=== PATIENT | female | born 1935 | race Caucasian/White ===

== ENCOUNTER 2017-03-02 21:33 | Emergency (ER) | payer OTHER ==
[2017-03-02 21:58] VITALS: BP 186/88; BMI 27.8
[2017-03-02] MEDS ORDERED: MORPHINE SULFATE INJ 4 MG IM ONE (22:00)
[2017-03-02] MEDS ORDERED: MORPHINE SULFATE INJ 4 MG ONE (22:01)
--- NOTE | 2017-03-02 22:01 | DR.GENAD ---
HPI - Complaint/Symptoms Chief Complaint:: PT FELL OUT OF BED AND H[facility] PT'S FAMILY REQUESTED PT COME TOO ED FOR EVALUATION PT STATES" I FELL TRYING TOO GET UP BY MYSELF AND FELL I WAS WEDGED INBETWEEN THE BATHROOM DOOR AND WALL. THE BACK OF MY HEAD AND NECK HURTS" - Source History Provided: Jail - Mode of Arrival Mode of Arrival: Stretcher - Timing Onset of Chief Complaint: 03/02/17 PMH - PMH Past Medical History: Yes Past Medical History: Anemia, Arthritis, CHF, Coronary Artery Disease, Diabetes , Dyslipidemia, GERD, Hypertension, Hypothyroidism, Kidney Stones Past Medical History Comment: [facility] Past Surgical History: Yes Surgical History: Appendectomy, Cholecystectomy, Hysterectomy, Ortho Surgery, Tonsillectomy - Family History History of Family Medical Conditions: Yes Family Medical History: [place], Coronary Artery Disease, Hypertension - Social History Alcohol Use: None Do you use any recreational Drugs:: No Lives With: Family Lives Where: Home - infectious screening In the last 2 months have you had wt loss of >10#?: NO Have you had fever, night sweats or hemotysis?: No Have you traveled outside the country in the last 6 months?: No Isolation: Standard ROS - Review of Systems Constitutional: No Symptoms Reported Eyes: No Symptoms Reported ENTM: No Symptoms Reported Respiratoy: No Symptoms Reported Cardiovascular: No Symptoms Reported Gastrointestinal/Abdominal: No Symptoms Reported Genitourinary: No Symptoms Reported Neurological: No Symptoms Reported Musculoskeletal: No Symptoms Reported Integumentary: No Symptoms Reported Hematologic/Lymphatic: No Symptoms Reported Endocrine: No Symptoms Reported Psychiatric: No Symptoms Reported All Other Systems: Reviewed and Negative PE - Vital Signs Vitals: Temperature 98.2 F Pulse Rate 76 Respiratory Rate 20 Blood Pressure [Right Arm] 181/83 Blood Pressure [Left Arm] 180/87 Blood Pressure 186/88 O2 Sat by Pulse Oximetry 99 - General Limitations: No Limitations General Appearance: Alert - Head Head Exam: Normal Inspection - Eyes Eye exam: Normal Appearance - ENT ENT Exam: Normal Exam External Ear Exam: Normal External Inspection TM/Canal Exam: Bilateral Normal Nose Exam: Normal Nose Exam Mouth Exam: Normal Inspection Throat Exam: Normal Inspection - Neck Neck Exam: Normal Inspection - Chest Chest Inspection: Normal Inspection - Respiratory Respiratory Exam: Normal Lung Sounds Bilat Respiratory Exam: Bilateral Clear to Auscultation - Cardiovascular Cardiovascular Exam: Regular Rate - Abdominal Exam Abdominal Exam: Normal Inspection Abdominal Tenderness: negative: RUQ, RLQ, LUQ, LLQ, Epigastrium, Suprapubic, Diffuse, Mild, Moderate, Severe, Other - Extremities Extremities Exam: Normal Inspection - Back Back Exam: Normal Inspection - Neurologic Neurological Exam: Alert, Oriented X3, CN II-XII Intact - Psychiatric Psychiatric Exam: Normal Affect - Skin Skin Exam: Warm, Dry Course - Treatment Treatment: Morphine 4mg IM ROR - XRAY XRAY Interpreted by: Radiologist (CT Brain: Bilateral cortical atrophy, periventrical and subccortical white matter changes are present bilateral 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
--- NOTE | 2017-03-02 22:36 | CT ---
EXAM: CT BRAIN WITHOUT CONTRAST INDICATION: Fall, head trauma COMPARISION: No Priors TECHNIQUE: Routine axial CT of the brain was performed without intravenous contrast. FINDINGS: There is advanced bilateral cortical atrophy. Patchy areas of low-attenuation are identified in the periventricular white matter bilaterally. The ventricular system is not abnormally dilated. No intra or extra-axial mass or hemorrhage. The amaro-white junction is preserved. There is no evidence of story bacute ischemic change. The basilar cisterns are clear. The skull is intact. The paranasal sinuses and mastoid air cells are clear. IMPRESSION: There is bilateral cortical atrophy. 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 No acute abnormality identified. Reported By:
--- NOTE | 2017-03-02 22:38 | CT ---
EXAM: CT CERVICAL SPINE WITHOUT CONTRAST INDICATION: Fall, neck pain COMPARISION: No priors TECHNIQUE: Axial CT examination of the cervical spine was performed without intravenous contrast. Coronal and s agittal planes were reconstructed using the axial data. FINDINGS: Degenerative disc changes are seen most notably throughout the lower cervical levels. No acute fract ure or subluxation. The vertebral body heights are preserved and normally aligned. Hypertrophic dege nerative facet arthropathy noted throughout cervical spine. Central canal is patent. The surrounding soft tissues appear unremarkable. IMPRESSION: Degenerative disc and facet changes are present throughout the cervical spine. The degenerative disc changes are most significant in the lower cervical levels. Reported By:
== END 2017-03-02 23:19 | disposition home or self-care (01) ==
LOC: ER 21:50
DX: S00.93XA Contusion of unspecified part of head, initial encounter (principal); M19.90 Unspecified osteoarthritis, unspecified site; G31.9 Degenerative disease of nervous system, unspecified; W06.XXXA Fall from bed, initial encounter; Y92.129 Unspecified place in nursing home as the place of occurrence of the external cause
CPT/HCPCS: 70450; 72125; 96372; 99282; 99283; J2270

== ENCOUNTER 2017-06-15 22:44 | Observation (INO) | payer OTHER ==
[2017-06-15 22:51] VITALS: BMI 26.4
--- NOTE | 2017-06-16 00:04 | DR.GENAD ---
HPI - PCP Primary Care Physician: EDUAR - Complaint/Symptoms Chief Complaint:: PATIENT STATED SINCE SHE ATE SUPPER SHE HAS BEEN HAVING LEG SPASMS AND HIGH BLOOD PRESSURE AT HOME. - Nurses notes reviewed Nurses Notes Review: Yes - Source History Provided: Patient, Family Member - Mode of Arrival Mode of Arrival: Wheelchair - Timing Onset of Chief Complaint: 06/15/17 Came on: Suddenly - Duration Duration: Constant Duration: Hours - Severity Severity: Moderate PMH - PMH Past Medical History: Yes Past Medical History: Anemia, Arthritis, CHF, Coronary Artery Disease, Diabetes , Dyslipidemia, GERD, Hypertension, Hypothyroidism, Kidney Stones Past Surgical History: Yes Surgical History: Appendectomy, Cholecystectomy, Hysterectomy, Ortho Surgery, Tonsillectomy - Family History History of Family Medical Conditions: Yes Family Medical History: [place], Coronary Artery Disease, Hypertension - Social History Does patient currently use any type of tobacco product: No Have you used tobacco products in the last 12 months: No Type of Tobacco Use: None Does any household member use tobacco: No Alcohol Use: None Do you use any recreational Drugs:: No Lives With: Family Lives Where: Home - infectious screening In the last 2 months have you had wt loss of >10#?: NO Have you had fever, night sweats or hemotysis?: No Have you traveled outside the country in the last 6 months?: No Isolation: Standard ROS - Review of Systems Constitutional: Weakness, Fatigue. negative: Chills, Fever Eyes: negative: Eye Pain, Discharge ENTM: negative: Ear Pain, Nose Discharge, Nose Congestion, Throat Pain Respiratoy: negative: Productive Cough, Non-Productive Cough, Short of Breath, Wheezing, Hemoptysis Cardiovascular: Edema (TRACE). negative: Chest Pain Gastrointestinal/Abdominal: negative: Abdominal Pain, Diarrhea, Nausea, Vomiting Genitourinary: negative: Dysuria, Hematuria Neurological: Weakness. negative: Headache, Dizziness Musculoskeletal: Muscle Pain Integumentary: Change in Color Hematologic/Lymphatic: Easy Bleeding, Easy Bruising Endocrine: No Symptoms Reported All Other Systems: Reviewed and Negative PE - Vital Signs Vitals: Temperature 97.4 F Pulse Rate 75 Respiratory Rate 18 Blood Pressure [Right Arm] 140/73 Blood Pressure [Left Arm] 180/87 Blood Pressure 164/92 O2 Sat by Pulse Oximetry 95 - General Limitations: No Limitations General Appearance: Alert - Head Head Exam: Normal Inspection - Eyes Eye exam: Normal Appearance - ENT ENT Exam: Normal External Ear Exam External Ear Exam: Normal External Inspection TM/Canal Exam: Bilateral Normal Nose Exam: Normal Nose Exam Mouth Exam: Normal Inspection Throat Exam: Tonsillar Erythema - Neck Neck Exam: Trachea Midline - Chest Chest Inspection: Symmetric Chest Wall Rise - Respiratory Respiratory Exam: Normal Lung Sounds Bilat Respiratory Exam: Bilateral Clear to Auscultation - Cardiovascular Cardiovascular Exam: Regular Rate, Normal Rhythm, Normal Heart Sounds - Abdominal Exam Abdominal Exam: Normal Bowel Sounds, Soft. negative: Tenderness - Extremities Extremities Exam: Tenderness, Edema (TRACE) - Back Back Exam: Paraspinal Tenderness - Neurologic Neurological Exam: Alert, Oriented X3 - Psychiatric Psychiatric Exam: Anxious - Skin Skin Exam: Erythema MDM - Additional Information Additional Information Obtained From: Family - Differential Diagnosis Differential Diagnosis: LEG CRAMPS, RESTLESS LEG SYNDROM, DEHYDRATION, HYPOKALEMIA Course - Treatment Treatment: SEE ORDERS. PAIN MED AND IV FLUID IN ED. - Reevaluation 1st: Improved (PAIN DECREASING.) - Consultation Consultation Comments: DISCUSS PATIENT WITH DR. WITT. HE WILL ADMIT PATIENT. - Education/Counseling Education/Counseling: Patient, Family, Education Educated On: Treatment, Diagnosis ROR - Labs Reviewed Laboratory Results Reviewed?: Yes Result Diagrams: 06/16/17 00:15 06/16/17 00:15 Laboratory: WBC 9.4 X10^3/uL (3.6-10.0) 06/16/17 00:15 RBC 3.49 X10^6/uL (3.5-5.4) L 06/16/17 00:15 Hgb 10.7 g/dL (12.0-16.0) L 06/16/17 00:15 Hct 32.2 % (36.0-47.0) L 06/16/17 00:15 MCV 92.2 fL (80.0-100.0) 06/16/17 00:15 MCH 30.7 pg (27.0-34.0) 06/16/17 00:15 MCHC 33.2 g/dL (33.0-35.0) 06/16/17 00:15 RDW 14.0 % (11.6-16.5) 06/16/17 00:15 Plt Count 211 X10^3/uL (150.0-450.0) 06/16/17 00:15 MPV 8.5 fL (7.4-11.0) 06/16/17 00:15 Neut % 66.0 % (42.0-75.0) 06/16/17 00:15 Lymph % 22.9 % (21.0-51.0) 06/16/17 00:15 [place] % 9.0 % (0.0-13.0) 06/16/17 00:15 Eos % 1.2 % (0.9-2.9) 06/16/17 00:15 Baso % 0.9 % (0.2-1.0) 06/16/17 00:15 Neut # 6.2 x10^3/uL (2.2-4.8) H 06/16/17 00:15 Lymph # 2.2 X10^3/uL (1.3-2.9) 06/16/17 00:15 [place] # 0.8 x10^3/uL (0.3-0.8) 06/16/17 00:15 Eos # 0.1 x10^3/uL (0.0-0.2) 06/16/17 00:15 Baso # 0.1 X10^3/uL (0.0-0.1) 06/16/17 00:15 Absolute Nucleated RBC 0.1 /100WBC 06/16/17 00:15 Sodium 141 mmol/L (136-145) 06/16/17 00:15 Corrected Sodium TNP 06/16/17 00:15 Potassium 4.6 mmol/L (3.5-5.1) 06/16/17 00:15 Chloride 107 mmol/L (98-107) 06/16/17 00:15 Carbon Dioxide 25.4 mmol/L (21-32) 06/16/17 00:15 BUN 33 mg/dL (7-18) H 06/16/17 00:15 Creatinine 2.72 mg/dL (0.55-1.02) H 06/16/17 00:15 Est GFR (MDRD) Af Amer 21 (>60) L 06/16/17 00:15 Est GFR (MDRD) Non-Af 18 (>60) L 06/16/17 00:15 Glucose 95 mg/dL (65-99) 06/16/17 00:15 Calcium 8.0 mg/dL (8.5-10.1) L 06/16/17 00:15 Corrected Calcium TNP 06/16/17 00:15 Total Bilirubin 0.20 mg/dL (0.2-1.0) 06/16/17 00:15 AST 25 Units/L (15-37) 06/16/17 00:15 ALT 16 Units/L (12-78) 06/16/17 00:15 Alkaline Phosphatase 67 Units/L (46-116) 06/16/17 00:15 Total Protein 6.6 g/dL (6.4-8.2) 06/16/17 00:15 Albumin 3.4 g/dL (3.4-5.0) 06/16/17 00:15 Globulin 3.2 g/dL (2.5-4.5) 06/16/17 00:15 Albumin/Globulin Ratio 1.1 Ratio (1.1-2.1) 06/16/17 00:15 - XRAY XRAY Interpreted by: Radiologist - Diagnosis Discharge Problem: Dehydration, Restless leg syndrome, Muscle cramps - Discharge Plan Disposition: ADMITTED INPATIENT Condition: Stable - Follow ups/Referrals Follow ups/Referrals: Ramiro Witt [Primary Care Provider] - 3 days - Instructions
[2017-06-16 00:25] LABS: BASOPHILS # (AUTO) 0.1 X10^3/uL (0.0-0.1); BASOPHILS % (AUTO) 0.9 % (0.2-1.0); EOSINOPHILS # (AUTO) 0.1 x10^3/uL (0.0-0.2); EOSINOPHILS % (AUTO) 1.2 % (0.9-2.9); HEMATOCRIT 32.2 % (36.0-47.0); HEMOGLOBIN 10.7 g/dL (12.0-16.0); LYMPHOCYTES # (AUTO) 2.2 X10^3/uL (1.3-2.9); LYMPHOCYTES % (AUTO) 22.9 % (21.0-51.0); MEAN CORPUSCULAR HEMOGLOBIN 30.7 pg (27.0-34.0); MEAN CORPUSCULAR HGB CONC 33.2 g/dL (33.0-35.0); MEAN CORPUSCULAR VOLUME 92.2 fL (80.0-100.0); MEAN PLATELET VOLUME 8.5 fL (7.4-11.0); MONOCYTES # (AUTO) 0.8 x10^3/uL (0.3-0.8); NEUTROPHILS # (AUTO) 6.2 x10^3/uL (2.2-4.8); PLATELET COUNT 211 X10^3/uL (150.0-450.0); RED BLOOD COUNT 3.49 X10^6/uL (3.5-5.4); WHITE BLOOD COUNT 9.4 X10^3/uL (3.6-10.0)
[2017-06-16 00:40] LABS: ALANINE AMINOTRANSFERASE 16 Units/L (12-78); ALBUMIN 3.4 g/dL (3.4-5.0); ALKALINE PHOSPHATASE 67 Units/L (46-116); ASPARTATE AMINO TRANSFERASE 25 Units/L (15-37); BLOOD UREA NITROGEN 33 mg/dL (7-18); CARBON DIOXIDE 25.4 mmol/L (21-32); CHLORIDE 107 mmol/L (98-107); CREATININE 2.72 mg/dL (0.55-1.02); GLUCOSE 95 mg/dL (65-99); SODIUM 141 mmol/L (136-145); TOTAL PROTEIN 6.6 g/dL (6.4-8.2); eGFR BLACK RACES 21 (>60); eGFR NON BLACK RACES 18 (>60)
[2017-06-16] MEDS ORDERED: NS 1000 ML 1,000 ML ONE (01:52)
[2017-06-16] MEDS ORDERED: MORPHINE SULFATE INJ 4 MG IVP ONE (01:56)
[2017-06-16] MEDS ORDERED: ZOFRAN INJ 4 MG VIAL IVP ONE (01:56)
[2017-06-16] MEDS: NS 1000 ML 1,000 ML IV SCH ×4 (02:00→21:19)
[2017-06-16 02:04] LABS: BILIRUBIN,URINE NEGATIVE (NEGATIVE); BLOOD/HEMOGLOBIN,URINE NEGATIVE (NEGATIVE); GLUCOSE, URINE NEGATIVE (NEGATIVE); KETONES,URINE NEGATIVE (NEGATIVE); LEUKOCYTE ESTERASE ,URINE 1+ (NEGATIVE); NITRITES,URINE POSITIVE (NEGATIVE); PROTEIN,URINE NEGATIVE (NEGATIVE); UROBILINOGEN,URINE NORMAL (NORMAL)
[2017-06-16] MEDS ORDERED: MORPHINE SULFATE INJ 4 MG ONE (02:05)
[2017-06-16] MEDS ORDERED: ZOFRAN INJ 4 MG VIAL ONE (02:05)
[2017-06-16 02:24] LABS: COLOR,URINE YELLOW (YELLOW)
[2017-06-16 02:25] LABS: APPEARANCE,URINE SLIGHTLY HAZY (CLEAR); BACTERIA,URINE 1+ /HPF (NEGATIVE); RBC,URINE 0-3 /HPF (NEGATIVE); SQUAMOUS EPITHELIAL CELL,UR FEW /HPF (NEGATIVE)
[2017-06-16] MEDS: MORPHINE SULFATE INJ 2 MG IVP PRN (03:57)
[2017-06-16 05:56] LABS: BASOPHILS % (AUTO) 0.5 % (0.2-1.0); EOSINOPHILS # (AUTO) 0.1 x10^3/uL (0.0-0.2); EOSINOPHILS % (AUTO) 1.6 % (0.9-2.9); HEMATOCRIT 30.5 % (36.0-47.0); HEMOGLOBIN 10.3 g/dL (12.0-16.0); LYMPHOCYTES # (AUTO) 1.9 X10^3/uL (1.3-2.9); LYMPHOCYTES % (AUTO) 24.3 % (21.0-51.0); MEAN CORPUSCULAR HEMOGLOBIN 30.9 pg (27.0-34.0); MEAN CORPUSCULAR HGB CONC 33.6 g/dL (33.0-35.0); MEAN CORPUSCULAR VOLUME 91.8 fL (80.0-100.0); MEAN PLATELET VOLUME 8.7 fL (7.4-11.0); MONOCYTES # (AUTO) 0.6 x10^3/uL (0.3-0.8); MONOCYTES % (AUTO) 8.2 % (0.0-13.0); NEUTROPHILS # (AUTO) 5.1 x10^3/uL (2.2-4.8); NEUTROPHILS % (AUTO) 65.4 % (42.0-75.0); PLATELET COUNT 212 X10^3/uL (150.0-450.0); RED BLOOD COUNT 3.32 X10^6/uL (3.5-5.4); RED CELL DISTRIBUTION WIDTH 14.1 % (11.6-16.5); WHITE BLOOD COUNT 7.7 X10^3/uL (3.6-10.0)
[2017-06-16 05:58] LABS: ALANINE AMINOTRANSFERASE 20 Units/L (12-78); ALKALINE PHOSPHATASE 60 Units/L (46-116); ASPARTATE AMINO TRANSFERASE 28 Units/L (15-37); BLOOD UREA NITROGEN 31 mg/dL (7-18); CALCIUM 7.7 mg/dL (8.5-10.1); CHLORIDE 109 mmol/L (98-107); COR CA(FOR HYPOALB) 8.5 mg/dL (8.5-10.1); CREATININE 2.53 mg/dL (0.55-1.02); GLUCOSE 91 mg/dL (65-99); SODIUM 143 mmol/L (136-145); TOTAL PROTEIN 6.1 g/dL (6.4-8.2); eGFR BLACK RACES 23 (>60); eGFR NON BLACK RACES 19 (>60)
[2017-06-16] MEDS ORDERED: LASIX PO PRN (09:57)
[2017-06-16] MEDS ORDERED: PATIENT'S HOME MEDICATION (Ondansetron [Zofran Odt] 4 MG) PO PRN (09:57)
[2017-06-16] MEDS ORDERED: ROPINIROLE HCL 2 MG PO PRN (09:57)
[2017-06-16] MEDS ORDERED: REGLAN TAB 5 MG PO PRN (09:57)
[2017-06-16] MEDS ORDERED: APIXABAN 5 MG PO SCH (10:00)
[2017-06-16] MEDS ORDERED: AMIODARONE HCL PO SCH (10:00)
[2017-06-16] MEDS ORDERED: PATIENT'S HOME MEDICATION (Glimepiride [Glimepiride 2 Mg] 2 MG) PO SCH (10:00)
[2017-06-16] MEDS ORDERED: PATIENT'S HOME MEDICATION (Cholecalciferol (Vitamin D3) [Vitamin D3] 2,000 UNIT) PO SCH (10:00)
[2017-06-16] MEDS ORDERED: ZOFRAN TAB 4 MG PO PRN (10:11)
[2017-06-16] MEDS ORDERED: NORVASC TAB 2.5 MG ONE (11:11)
[2017-06-16] MEDS: TORADOL 15 MG VIAL IVP SCH ×2 (11:22→19:10)
[2017-06-16] MEDS: VITAMIN D3 PO SCH (11:23)
[2017-06-16] MEDS: MICRO K EXTEN CAP 10 MEQ PO SCH (11:23)
[2017-06-16] MEDS: COLACE CAP 100 MG PO SCH ×2 (11:23→21:19)
[2017-06-16] MEDS: ZESTRIL TAB 10 MG PO SCH (11:24)
[2017-06-16] MEDS: SYNTHROID 100 mcg TAB PO SCH (11:24)
[2017-06-16] MEDS: SINEMET (PLAIN) 25/250 MG PO SCH ×3 (11:24→21:19)
[2017-06-16] MEDS: ZANAFLEX PO SCH ×2 (11:24→19:10)
[2017-06-16] MEDS: PEPCID TAB 20 MG PO SCH ×2 (11:24→21:19)
[2017-06-16] MEDS: PROTONIX TAB 40 MG PO SCH (11:24)
[2017-06-16] MEDS: NORVASC TAB 2.5 MG PO SCH (11:25)
--- NOTE | 2017-06-16 13:55 | DR.H&P ---
H&P - History & Physical for Day of: H&P Date: 06/16/17 - Chief Complaint Chief Complaint: DEHYDRATION, MUSCLE CRAMPS, RESTLESS LEGS - Allergies Allergies/Adverse Reactions: Allergies Allergy/AdvReac Type Severity Reaction Status Date / Time ADHESIVE TAPE Allergy Uncoded 06/15/17 22:44 - History of Present Illness History of Present Illness: IS A 81 YEAR OLD PATIENT OF OURS WHO PRESENTED TO THE ER WITH COMPLAINTS OF SEVERE LEG CRAMPS AND INCREASED BLOOD PRESSURE AT HOME. PATIENT REPORTED INCREASED ACTIVITY AT HOME TODAY AND STATED THAT HER LEGS BEGAN CRAMPING. SHE BELIEVES THAT THE PAIN IS WHAT IS MAKING HER BLOOD PRESSURE INCREASE. PATIENT REPORTED TAKING A NORCO AND NEURONTIN, BUT DENIED RELIEF OF PAIN. ON ARRIVAL TO ER, VITALS WERE 97.4-75-18-95%-164/92. CBC WNL EXCEPT RBC 3.49, HGB 10.7, HCT 32.2. CMP WNL EXCEPT BUN 32, CREATININE 2.72, GFR 18, CALCIUM 8.0. URINALYSIS REPORTED WBC 5-10, BACTERIA 1+, LEUKOCYTES 1+, NITRATES POSITIVE. SHE RECEIVED MORPINE 4MG IVP AND ZOFRAN 4MG IVP IN ER. SHE CONTINUED TO REPORT PAIN. WE ADMITTED HER FOR FURTHER TREATMENT AND EVALUATION. WE STARTED HER ON NS @100ML/HR, MORPHINE 1-2MG IV Q4H PRN PAIN, ROCEPHIN 1GM IV DAILY, AND OTBS ACHS. WE WILL REVIEW HOME MEDICATIONS, RECHECK LABS, AND FOLLOW UP WITH PATIENT IN AM. - Past Medical History Past Medical History: Anemia, Arthritis, CHF, Coronary Artery Disease, Diabetes , Dyslipidemia, GERD, Hypertension, Hypothyroidism, Kidney Stones Additional Medical History: Vision Deficit, Parkinson's Disease, Atrial Fibrillation, Bronchitis, Pneumonia, Constipation, Diarrhea, Colon Cancer, Breast Cancer, Urinary Tract Infections, Muscle Weakness, Back Pain, Neuropathy , Previous Blood Transfusion - Past Surgical History Surgical History: Abdominal Surgery, Hysterectomy, Other Additional Surgical History: Pacemaker, Two Colon Resection's for Colon Cancer, Left Partial Mastectomy for Breast Cancer, Right Chest Wall Port a cath, Left PAU - Family History Family Medical History: Hypertension - Social History Does patient currently use any type of tobacco product: No Have you used tobacco products in the last 12 months: No Type of Tobacco Use: None Does any household member use tobacco: No Alcohol Use: None Drug Use: None - Medications Home Medications: Amlodipine Besylate [Norvasc] 5 mg PO DAILY 06/16/17 [History Confirmed 06/16/17 ] Apixaban [Eliquis] 5 mg PO BID 06/16/17 [History Confirmed 06/16/17] Cholecalciferol (Vitamin D3) [Vitamin D3] 2,000 unit PO DAILY 06/16/17 [History Confirmed 06/16/17] Gabapentin 100 mg PO HS 06/16/17 [History Confirmed 06/16/17] Glimepiride [Glimepiride 2 mg] 2 mg PO DAILY 06/16/17 [History Confirmed ] Lisinopril [Prinivil] 10 mg PO DAILY 06/16/17 [History Confirmed 06/16/17] Metoclopramide HCl 5 mg PO QID PRN 06/16/17 [History Confirmed 06/16/17] - Physical Exam Vital Signs: Temperature 98.3 F Pulse Rate [Right Brachial] 66 Respiratory Rate 20 Blood Pressure [Right Arm] 123/57 O2 Sat by Pulse Oximetry 96 - Assessment/Plan (1) Dehydration Status: Acute Plan: IV FLUIDS, CONTINUE TO MONITOR PATIENT AND LABS (2) Muscle cramps Status: Acute Plan: START MORPHINE 1-2 MG IV Q4H PRN PAIN, START TORADOL 15MG IV Q8H, START ZANAFLEX 4 PO Q8H, CONTINUE TO MONITORCONTINUE GABAPENTIN, CONTINUE REQUIP, CONTINUE TO MONITOR (3) Restless leg syndrome Status: Acute Plan: CONTINUE GABAPENTIN, CONTINUE REQUIP, CONTINUE TO MONITOR (4) UTI (urinary tract infection) Qualifiers: Urinary tract infection type: site unspecified Hematuria presence: without hematuria Indwelling urinary catheter type: I Encounter type: E Qualified Code(s): N39.0 - Urinary tract infection, site not specified Status: Acute Plan: START ROCEPHIN 1GM IV DAILY, CONTINUE TO MONITOR (5) Hypertension Qualifiers: Hypertension type: essential hypertension Qualified Code(s): I10 - Essential (primary) hypertension Status: Acute Plan: CONTINUE NORVASC, CONTINUE ZESTRIL, CONTINUE TO MONITOR (6) GERD (gastroesophageal reflux disease) Qualifiers: Esophagitis presence: esophagitis presence not specified Qualified Code(s) : K21.9 - Gastro-esophageal reflux disease without esophagitis Status: Chronic Plan: CONTINUE REGLAN, CONTINUE PEPCID, CONTINUE TO MONITOR (7) Hyperlipidemia Qualifiers: Hyperlipidemia type: mixed hyperlipidemia Qualified Code(s): E78.2 - Mixed hyperlipidemia Status: Chronic Plan: CONTINUE LIPITOR, CONTINUE TO MONITOR (8) Hypothyroid Qualifiers: Hypothyroidism type: acquired Qualified Code(s): E03.9 - Hypothyroidism, unspecified Status: Chronic Plan: CONTINUE SYNTHROID, CONTINUE TO MONITOR (9) Diabetes mellitus Qualifiers: Diabetes mellitus type: type 2 Diabetes mellitus complication status: without complication Diabetes mellitus complication detail: D Diabetic retinopathy severity: D Proliferative retinopathy type: P Diabetes mellitus macular edema: D Diabetes mellitus intermediate accountant insulin use: with correction use Laterality: L Chronic kidney disease stage: C Qualified Code(s): E11.9 - Type 2 diabetes mellitus without complications; Z79.4 - residential (current) use of insulin Status: Chronic Plan: CONTINUE AMARYL, CONTINUE TO MONITOR (10) Parkinson disease Status: Chronic Plan: CONTINUE SINEMET, CONTINUE TO MONITOR (11) Depression Qualifiers: Depression Type: major depressive disorder Major depression recurrence: recurrent Active/Remission status: currently active Major depression episode severity: moderate Psychotic features: P Trimester: T Qualified Code(s): F33.1 - Major depressive disorder, recurrent, moderate Status: Chronic Plan: CONTINUE CELEXA, CONTINUE TO MONITOR
--- NOTE | 2017-06-16 14:07 | DR.H&P ---
H&P - History & Physical for Day of: H&P Date: 06/16/17 - Allergies Allergies/Adverse Reactions: Allergies Allergy/AdvReac Type Severity Reaction Status Date / Time ADHESIVE TAPE Allergy Uncoded 06/15/17 22:44 - History of Present Illness History of Present Illness: IS A 81 YEAR OLD PATIENT OF OURS WHO PRESENTED TO THE ER WITH COMPLAINTS OF SEVERE LEG CRAMPS AND INCREASED BLOOD PRESSURE AT HOME. PATIENT REPORTED INCREASED ACTIVITY AT HOME TODAY AND STATED THAT HER LEGS BEGAN CRAMPING. SHE BELIEVES THAT THE PAIN IS WHAT IS MAKING HER BLOOD PRESSURE INCREASE. PATIENT REPORTED TAKING A NORCO AND NEURONTIN, BUT DENIED RELIEF OF PAIN. ON ARRIVAL TO ER, VITALS WERE 97.4-75-18-95%-164/92. CBC WNL EXCEPT RBC 3.49, HGB 10.7, HCT 32.2. CMP WNL EXCEPT BUN 32, CREATININE 2.72, GFR 18, CALCIUM 8.0. URINALYSIS REPORTED WBC 5-10, BACTERIA 1+, LEUKOCYTES 1+, NITRATES POSITIVE. SHE RECEIVED MORPINE 4MG IVP AND ZOFRAN 4MG IVP IN ER. SHE CONTINUED TO REPORT PAIN. WE ADMITTED HER FOR FURTHER TREATMENT AND EVALUATION. WE STARTED HER ON NS @100ML/HR, MORPHINE 1-2MG IV Q4H PRN PAIN, ROCEPHIN 1GM IV DAILY, AND OTBS ACHS. WE WILL REVIEW HOME MEDICATIONS, RECHECK LABS, AND FOLLOW UP WITH PATIENT IN AM. - Past Medical History Past Medical History: Anemia, Arthritis, CHF, Coronary Artery Disease, Diabetes , Dyslipidemia, GERD, Hypertension, Hypothyroidism, Kidney Stones Additional Medical History: Vision Deficit, Parkinson's Disease, Atrial Fibrillation, Bronchitis, Pneumonia, Constipation, Diarrhea, Colon Cancer, Breast Cancer, Urinary Tract Infections, Muscle Weakness, Back Pain, Neuropathy , Previous Blood Transfusion - Past Surgical History Surgical History: Abdominal Surgery, Hysterectomy, Other Additional Surgical History: Pacemaker, Two Colon Resection's for Colon Cancer, Left Partial Mastectomy for Breast Cancer, Right Chest Wall Port a cath, Left PAU - Family History Family Medical History: Hypertension - Social History Does patient currently use any type of tobacco product: No Have you used tobacco products in the last 12 months: No Type of Tobacco Use: None Does any household member use tobacco: No Alcohol Use: None Drug Use: None - Medications Home Medications: Amlodipine Besylate [Norvasc] 5 mg PO DAILY 06/16/17 [History Confirmed 06/16/17 ] Apixaban [Eliquis] 5 mg PO BID 06/16/17 [History Confirmed 06/16/17] Cholecalciferol (Vitamin D3) [Vitamin D3] 2,000 unit PO DAILY 06/16/17 [History Confirmed 06/16/17] Gabapentin 100 mg PO HS 06/16/17 [History Confirmed 06/16/17] Glimepiride [Glimepiride 2 mg] 2 mg PO DAILY 06/16/17 [History Confirmed ] Lisinopril [Prinivil] 10 mg PO DAILY 06/16/17 [History Confirmed 06/16/17] Metoclopramide HCl 5 mg PO QID PRN 06/16/17 [History Confirmed 06/16/17] - Review of Systems Constitutional: No Symptoms Reported. denies: See HPI, Fever, Chills, Sweats, Weakness, Malaise, Other Eyes: No Symptoms Reported. denies: See HPI, Pain, Vision Change, Conjunctivae Inflammation, Eyelid Inflammation, Redness, Other ENT: No Symptoms Reported. denies: See HPI, Ear Pain, Ear Discharge, Nose Pain , Nose Discharge, Nose Congestion, Mouth Pain, Mouth Swelling, Throat Pain, Throat Swelling, Other Respiratory: No Symptoms Reported. denies: See HPI, Cough, Dry, Shortness of Breath, Hemoptysis, SOB with Excertion, Pleuritic Pain, Sputum, Wheezing, Other Cardiovascular: No Symptoms Reported. denies: Chest Pain, See HPI, Palpitations , Orthopnea, Paroxysmal Noc. Dyspnea, Edema, Light Headedness, Other Gastrointestinal: No Symptoms Reported. denies: See HPI, Nausea, Vomiting, Abdominal Pain, Diarrhea, Constipation, Melena, Hematochezia, Other Genitourinary: No Symptoms Reported. denies: See HPI, Dysuria, Frequency, Incontinence, Hematuria, Retention, Other Musculoskeletal: See HPI, Leg Pain, Neck Pain. denies: No Symptoms Reported, Shoulder Pain, Arm Pain, Back Pain, Hand Pain, Foot Pain, Other Skin: No Symptoms Reported. denies: See HPI, Rash, Lesions, Jaundice, Bruising , Wound, Ecchymosis, Other Neurological: No Symptoms Reported. denies: See HPI, Weakness, Numbness, Incoordination, Change in Speech, Confusion, Seizures, Other - Physical Exam Vital Signs: Temperature 98.3 F Pulse Rate [Right Brachial] 66 Respiratory Rate 20 Blood Pressure [Right Arm] 123/57 O2 Sat by Pulse Oximetry 96 Oriented: Normal. negative: Time, Person, Place, Not Oriented, Unable to test, Other Eyes: Normal. negative: Blurred Vision, Diplopia, Discharge, Pain, Redness, Photophobia, Other Ear: Normal. negative: Right, Left, Swelling, Ecchymosis, Hemotypanum, Abrasion , Laceration Nose: Normal. negative: Injected, Discharge, Blood, Other Throat: Normal. negative: Tonsillar Hypertrophy, Red, Exudate, Dry, Other Respiratory: Clear Throughout. negative: Diminished Throughout, Rhonchi Throughout, Rales Throughout, Wheezes Throughout, RUL Clear, RML Clear, RLL Clear, ERNESTINE Clear, LML Clear, LLL Clear, RUL Diminished, RML Diminished, RLL Diminished, ERNESTINE Diminished, LML Diminished, LLL Diminished, RUL Absent, RML Absent, RLL Absent, ERNESTINE Absent, LML Absent, LLL Absent, RUL Rhonchi, RML Rhonchi , RLL Rhonchi, ERNESTINE Rhonchi, LML Rhonchi, LLL Rhonchi, RUL Insp. Wheeze, RML Insp. Wheeze, RLL Insp. Wheeze, ERNESTINE Insp.Wheeze, LML Insp.Wheeze, LLL Insp.Wheeze, RUL Exp. Wheeze, RML Exp. Wheeze, RLL Exp. Wheeze, ERNESTINE Exp. Wheeze , LML Exp. Wheeze, LLL Exp. Wheeze, RUL Rales, RML Rales, RLL Rales, ERNESTINE Rales, LML Rales, LLL Rales, RUL Rub, RML Rub, RLL Rub, ERNESTINE Rub, LML Rub, LLL Rub, RUL Squeak, RML Squeak, RLL Squeak, ERNESTINE Squeak, LML Squeak, LLL Squeak Cardiovascular: Normal. negative: Tachycardia, Bradycardia, Irregular, S3, S4, Systolic, Diastolic, Murmur, Edema, Other : Normal. negative: Dysuria, Hematuria, Frequency, Discharge, Testicular Pain , Bleeding, , Other Auscultation: Bowel Sounds: Normal. negative: Bruit, Absent, Increased, Decreased, High Pitched, Other Palpation: Normal. negative: Spleen Enlarged, Liver Enlarged, Mass Pulsatile, Other Tenderness: Normal. negative: Diffuse, RUQ, RLQ, LUQ, LLQ, Epigastric, Periumbilical, Suprapubic, Mild, Moderate, Severe, Rebound, Guarding, Rigidity, Other Skin: Red. negative: Normal, Decreased Turgur, Rash, Papular, Macular, Maculopapular, Vesicular, Pustular, Petechial, Tender, Hot, Diaphoresis, Wound, Bruising, Ecchymosis, Other Musculoskeletal: Right, Left, Leg, Tender Psychiatric: Normal. negative: Anxiety, Depression, Agitation, Other Mood Description: Calm. negative: Angry, Apathetic, Depressed, Fearful, Flat, Happy, Hostile, Sad, Suspicious, Withdrawn, Anxious, Appropriate, Labile Affect: Normal. negative: Angry, Anxious, Depressed, Flat, Hysterical, Quiet, Violent Speech Pattern: Clear. negative: Appropriate, Unclear, Inappropriate, Delayed, Slurred, Excessive, Aphasic, Artificially Ventilated - Assessment/Plan (1) Dehydration Status: Acute Plan: IV FLUIDS, CONTINUE TO MONITOR PATIENT AND LABS (2) Muscle cramps Status: Acute Plan: START MORPHINE 1-2 MG IV Q4H PRN PAIN, START TORADOL 15MG IV Q8H, START ZANAFLEX 4 PO Q8H, CONTINUE TO MONITORCONTINUE GABAPENTIN, CONTINUE REQUIP, CONTINUE TO MONITOR (3) Restless leg syndrome Status: Acute Plan: CONTINUE GABAPENTIN, CONTINUE REQUIP, CONTINUE TO MONITOR (4) UTI (urinary tract infection) Qualifiers: Urinary tract infection type: site unspecified Hematuria presence: without hematuria Indwelling urinary catheter type: I Encounter type: E Qualified Code(s): N39.0 - Urinary tract infection, site not specified Status: Acute Plan: START ROCEPHIN 1GM IV DAILY, CONTINUE TO MONITOR (5) Hypertension Qualifiers: Hypertension type: essential hypertension Qualified Code(s): I10 - Essential (primary) hypertension Status: Acute Plan: CONTINUE NORVASC, CONTINUE ZESTRIL, CONTINUE TO MONITOR (6) GERD (gastroesophageal reflux disease) Qualifiers: Esophagitis presence: esophagitis presence not specified Qualified Code(s) : K21.9 - Gastro-esophageal reflux disease without esophagitis Status: Chronic Plan: CONTINUE REGLAN, CONTINUE PEPCID, CONTINUE TO MONITOR (7) Hyperlipidemia Qualifiers: Hyperlipidemia type: mixed hyperlipidemia Qualified Code(s): E78.2 - Mixed hyperlipidemia Status: Chronic Plan: CONTINUE LIPITOR, CONTINUE TO MONITOR (8) Hypothyroid Qualifiers: Hypothyroidism type: acquired Qualified Code(s): E03.9 - Hypothyroidism, unspecified Status: Chronic Plan: CONTINUE SYNTHROID, CONTINUE TO MONITOR (9) Diabetes mellitus Qualifiers: Diabetes mellitus type: type 2 Diabetes mellitus complication status: without complication Diabetes mellitus complication detail: D Diabetic retinopathy severity: D Proliferative retinopathy type: P Diabetes mellitus macular edema: D Diabetes mellitus equipment operator intermodal yard insulin use: with equipment operator intermodal yard use Laterality: L Chronic kidney disease stage: C Qualified Code(s): E11.9 - Type 2 diabetes mellitus without complications; Z79.4 - intermediate accountant (current) use of insulin Status: Chronic Plan: CONTINUE AMARYL, CONTINUE TO MONITOR (10) Parkinson disease Status: Chronic Plan: CONTINUE SINEMET, CONTINUE TO MONITOR (11) Depression Qualifiers: Depression Type: major depressive disorder Major depression recurrence: recurrent Active/Remission status: currently active Major depression episode severity: moderate Psychotic features: P Trimester: T Qualified Code(s): F33.1 - Major depressive disorder, recurrent, moderate Status: Chronic Plan: CONTINUE CELEXA, CONTINUE TO MONITOR
[2017-06-16] MEDS: NORCO 7.5/325 MG TAB PO PRN (14:20)
[2017-06-16] MEDS ORDERED: NS 50 ML IV + SPIKE MINIBAG* 50 ML IV ONE (16:09)
[2017-06-16] MEDS ORDERED: ROCEPHIN VIAL 1 GM ONE (16:09)
[2017-06-16] MEDS: ROCEPHIN VIAL 1 GM 1 GM in NS 50 ML IV + SPIKE MINIBAG* 50 ML IV SCH (16:19)
[2017-06-16] MEDS: LIPITOR TAB 20 MG PO SCH (17:00)
[2017-06-16] MEDS ORDERED: ZANAFLEX ONE (19:08)
[2017-06-16] MEDS ORDERED: TORADOL 15 MG VIAL ONE (19:09)
[2017-06-16] MEDS ORDERED: DONEPEZIL HYDROCHLORIDE PO SCH (21:00)
[2017-06-16] MEDS: NEURONTIN CAP 100 MG PO SCH (21:17)
[2017-06-16] MEDS: CORDARONE TAB 200 MG PO SCH (21:18)
[2017-06-16] MEDS: ELIQUIS PO SCH (21:19)
[2017-06-16] MEDS: ARICEPT TAB 10 MG PO SCH (21:19)
[2017-06-16] MEDS: CELEXA PO SCH (21:19)
[2017-06-16] MEDS: REQUIP PO PRN (22:30)
[2017-06-17] MEDS: TORADOL 15 MG VIAL IVP SCH ×3 (04:36→17:00)
[2017-06-17] MEDS: NS 1000 ML 1,000 ML IV SCH ×4 (04:36→20:39)
[2017-06-17] MEDS: ZANAFLEX PO SCH ×3 (04:37→17:00)
[2017-06-17] MEDS: SINEMET (PLAIN) 25/250 MG PO SCH ×3 (05:03→22:14)
[2017-06-17] MEDS: AMARYL TAB 4 MG PO SCH (06:02)
[2017-06-17 06:12] LABS: BASOPHILS % (AUTO) 0.4 % (0.2-1.0); EOSINOPHILS # (AUTO) 0.1 x10^3/uL (0.0-0.2); EOSINOPHILS % (AUTO) 1.9 % (0.9-2.9); HEMATOCRIT 30.6 % (36.0-47.0); HEMOGLOBIN 10.1 g/dL (12.0-16.0); LYMPHOCYTES # (AUTO) 1.4 X10^3/uL (1.3-2.9); LYMPHOCYTES % (AUTO) 21.5 % (21.0-51.0); MEAN CORPUSCULAR HEMOGLOBIN 30.5 pg (27.0-34.0); MEAN CORPUSCULAR HGB CONC 33.1 g/dL (33.0-35.0); MEAN CORPUSCULAR VOLUME 92.3 fL (80.0-100.0); MEAN PLATELET VOLUME 9.4 fL (7.4-11.0); MONOCYTES # (AUTO) 0.5 x10^3/uL (0.3-0.8); MONOCYTES % (AUTO) 7.3 % (0.0-13.0); NEUTROPHILS # (AUTO) 4.3 x10^3/uL (2.2-4.8); NEUTROPHILS % (AUTO) 68.9 % (42.0-75.0); PLATELET COUNT 204 X10^3/uL (150.0-450.0); RED BLOOD COUNT 3.32 X10^6/uL (3.5-5.4); RED CELL DISTRIBUTION WIDTH 14.2 % (11.6-16.5); WHITE BLOOD COUNT 6.3 X10^3/uL (3.6-10.0)
[2017-06-17 06:40] LABS: ALBUMIN 2.8 g/dL (3.4-5.0); CALCIUM 7.7 mg/dL (8.5-10.1); CARBON DIOXIDE 25.1 mmol/L (21-32); COR CA(FOR HYPOALB) 8.7 mg/dL (8.5-10.1); CREATININE 1.75 mg/dL (0.55-1.02)
[2017-06-17] MEDS ORDERED: NORVASC TAB 2.5 MG ONE (08:28)
[2017-06-17] MEDS: COLACE CAP 100 MG PO SCH ×2 (08:36→20:40)
[2017-06-17] MEDS: NORVASC TAB 2.5 MG PO SCH (08:37)
[2017-06-17] MEDS: PROTONIX TAB 40 MG PO SCH (08:38)
[2017-06-17] MEDS: MICRO K EXTEN CAP 10 MEQ PO SCH (08:38)
[2017-06-17] MEDS: ZESTRIL TAB 10 MG PO SCH (08:38)
[2017-06-17] MEDS: ELIQUIS PO SCH ×2 (08:39→20:42)
[2017-06-17] MEDS: CORDARONE TAB 200 MG PO SCH ×2 (08:39→20:42)
[2017-06-17] MEDS: PEPCID TAB 20 MG PO SCH (08:40)
[2017-06-17] MEDS: ROCEPHIN VIAL 1 GM 1 GM in NS 50 ML IV + SPIKE MINIBAG* 50 ML IV SCH (08:40)
[2017-06-17] MEDS: SYNTHROID 100 mcg TAB PO SCH (08:40)
[2017-06-17] MEDS: VITAMIN D3 PO SCH (08:42)
--- NOTE | 2017-06-17 12:09 | PCM.PROG ---
Progress Note - Progress Note for Day of Date: 06/17/17 - Subjective Subjective: IS ALERT AND ORIENTED ON MORNING ROUNDS. SHE IS SITTING UP IN BED WITH AT BEDSIDE. SHE HAS NO COMPLAINTS AND REPORTS FEELING MUCH BETTER TODAY. SHE DENIES PAIN. VITALS THIS AM ARE 98.0-77-20-96%-142/65. CBC REPORTS WBC 6.3, RBC 3.32, HGB 10.1, HCT 30.6. CMP REPORTS SODIUM 141, POTASSIUM 4.9, BUN 24, CREATININE 1.75, GLUCOSE 122, CALCIM 7.7, AST 50, ALT 17 , ALKALINE PHOSPHATASE 70, TOTAL PROTEIN 6.0, ALBUMIN 2.8. WE WILL CONTINUE WITH CURRENT PLAN OF CARE AND FOLLOW UP WITH PATIENT IN AM WITH PLANS TO DISCHARGE HOME IF STABLE. - Past Medical Family Social History Past Med/Fam/Surg Hx: No changes since H&P Allergies: Allergies ADHESIVE TAPE Allergy (Uncoded 06/15/17 22:44) - Review of Systems ROS: No change since H&P - Vital Signs and I&O's Vital Signs: Temperature 99.1 F Pulse Rate [Right Brachial] 77 Respiratory Rate 22 Blood Pressure [Right Arm] 127/66 O2 Sat by Pulse Oximetry 95 Intake and Output: Intake & Output 06/15/17 06/16/17 06/17/17 06/18/17 11:59 11:59 11:59 11:59 Intake Total 1600 Balance 1600 - Physical Exam Oriented: Normal Eyes: Normal Ear: Normal Nose: Normal Throat: Normal Respiratory: Normal Cardiovascular: Normal Auscultation: Bowel Sounds: Normal Palpation: Normal Tenderness: Normal Skin: Normal Musculoskeletal: Normal Psychiatric: Normal Mood Description: Calm Affect: Normal Speech Pattern: Clear, Appropriate - Laboratory and Diagnostics Result Diagrams: 06/17/17 05:21 06/17/17 05:21 Labs: Laboratory WBC 6.3 X10^3/uL (3.6-10.0) 06/17/17 05:21 RBC 3.32 X10^6/uL (3.5-5.4) L 06/17/17 05:21 Hgb 10.1 g/dL (12.0-16.0) L 06/17/17 05:21 Hct 30.6 % (36.0-47.0) L 06/17/17 05:21 MCV 92.3 fL (80.0-100.0) 06/17/17 05:21 MCH 30.5 pg (27.0-34.0) 06/17/17 05:21 MCHC 33.1 g/dL (33.0-35.0) 06/17/17 05:21 RDW 14.2 % (11.6-16.5) 06/17/17 05:21 Plt Count 204 X10^3/uL (150.0-450.0) 06/17/17 05:21 MPV 9.4 fL (7.4-11.0) 06/17/17 05:21 Neut % 68.9 % (42.0-75.0) 06/17/17 05:21 Lymph % 21.5 % (21.0-51.0) 06/17/17 05:21 Bradley % 7.3 % (0.0-13.0) 06/17/17 05:21 Eos % 1.9 % (0.9-2.9) 06/17/17 05:21 Baso % 0.4 % (0.2-1.0) 06/17/17 05:21 Neut # 4.3 x10^3/uL (2.2-4.8) 06/17/17 05:21 Lymph # 1.4 X10^3/uL (1.3-2.9) 06/17/17 05:21 Bradley # 0.5 x10^3/uL (0.3-0.8) 06/17/17 05:21 Eos # 0.1 x10^3/uL (0.0-0.2) 06/17/17 05:21 Baso # 0.0 X10^3/uL (0.0-0.1) 06/17/17 05:21 Absolute Nucleated RBC 0.1 /100WBC 06/17/17 05:21 Sodium 141 mmol/L (136-145) 06/17/17 05:21 Corrected Sodium 142 mmol/L (136-145) 06/17/17 05:21 Potassium 4.9 mmol/L (3.5-5.1) 06/17/17 05:21 Chloride 109 mmol/L (98-107) H 06/17/17 05:21 Carbon Dioxide 25.1 mmol/L (21-32) 06/17/17 05:21 BUN 24 mg/dL (7-18) H 06/17/17 05:21 Creatinine 1.75 mg/dL (0.55-1.02) H 06/17/17 05:21 Est GFR (MDRD) Af Amer 36 (>60) L 06/17/17 05:21 Est GFR (MDRD) Non-Af 30 (>60) L 06/17/17 05:21 Glucose 122 mg/dL (65-99) H 06/17/17 05:21 Calcium 7.7 mg/dL (8.5-10.1) L 06/17/17 05:21 Corrected Calcium 8.7 mg/dL (8.5-10.1) 06/17/17 05:21 Total Bilirubin 0.30 mg/dL (0.2-1.0) 06/17/17 05:21 AST 50 Units/L (15-37) H 06/17/17 05:21 ALT 17 Units/L (12-78) 06/17/17 05:21 Alkaline Phosphatase 70 Units/L (46-116) 06/17/17 05:21 Total Protein 6.0 g/dL (6.4-8.2) L 06/17/17 05:21 Albumin 2.8 g/dL (3.4-5.0) L 06/17/17 05:21 Globulin 3.2 g/dL (2.5-4.5) 06/17/17 05:21 Albumin/Globulin Ratio 0.9 Ratio (1.1-2.1) L 06/17/17 05:21 Specimen Type Clean catch urine 06/16/17 01:42 Urine Color Yellow (YELLOW) 06/16/17 01:42 Urine Appearance Slightly hazy (CLEAR) 06/16/17 01:42 Urine pH 5.0 (5.0 - 8.0) 06/16/17 01:42 Ur Specific Frederic 1.020 (1.000-1.030) 06/16/17 01:42 Urine Protein Negative (NEGATIVE) 06/16/17 01:42 Urine Glucose (UA) Negative (NEGATIVE) 06/16/17 01:42 Urine Ketones Negative (NEGATIVE) 06/16/17 01:42 Urine Occult Blood Negative (NEGATIVE) 06/16/17 01:42 Urine Nitrite Positive (NEGATIVE) 06/16/17 01:42 Urine Bilirubin Negative (NEGATIVE) 06/16/17 01:42 Urine Urobilinogen Normal (NORMAL) 06/16/17 01:42 Ur Leukocyte Esterase 1+ (NEGATIVE) 06/16/17 01:42 Urine RBC 0-3 /HPF (NEGATIVE) 06/16/17 01:42 Urine WBC 5-10 /HPF (NEGATIVE) 06/16/17 01:42 Ur Squamous Epith Cells Few /HPF (NEGATIVE) 06/16/17 01:42 Urine Bacteria 1+ /HPF (NEGATIVE) 06/16/17 01:42 Ur Culture Indicated? Yes/culture set up 06/16/17 01:42 - Plan (1) Dehydration Status: Acute Plan: IV FLUIDS, CONTINUE TO MONITOR PATIENT AND LABS (2) Muscle cramps Status: Acute Plan: START MORPHINE 1-2 MG IV Q4H PRN PAIN, START TORADOL 15MG IV Q8H, START ZANAFLEX 4 PO Q8H,CONTINUE GABAPENTIN, CONTINUE REQUIP, CONTINUE TO MONITOR (3) Restless leg syndrome Status: Acute Plan: CONTINUE GABAPENTIN, CONTINUE REQUIP, CONTINUE TO MONITOR (4) UTI (urinary tract infection) Status: Acute Qualifiers: Urinary tract infection type: site unspecified Hematuria presence: without hematuria Indwelling urinary catheter type: I Encounter type: E Qualified Code(s): N39.0 - Urinary tract infection, site not specified Plan: START ROCEPHIN 1GM IV DAILY, CONTINUE TO MONITOR (5) Hypertension Status: Acute Qualifiers: Hypertension type: essential hypertension Qualified Code(s): I10 - Essential (primary) hypertension Plan: CONTINUE NORVASC, CONTINUE ZESTRIL, CONTINUE TO MONITOR (6) GERD (gastroesophageal reflux disease) Status: Chronic Qualifiers: Esophagitis presence: esophagitis presence not specified Qualified Code(s) : K21.9 - Gastro-esophageal reflux disease without esophagitis Plan: CONTINUE REGLAN, CONTINUE PEPCID, CONTINUE TO MONITOR (7) Hyperlipidemia Status: Chronic Qualifiers: Hyperlipidemia type: mixed hyperlipidemia Qualified Code(s): E78.2 - Mixed hyperlipidemia Plan: CONTINUE LIPITOR, CONTINUE TO MONITOR (8) Hypothyroid Status: Chronic Qualifiers: Hypothyroidism type: acquired Qualified Code(s): E03.9 - Hypothyroidism, unspecified Plan: CONTINUE SYNTHROID, CONTINUE TO MONITOR (9) Diabetes mellitus Status: Chronic Qualifiers: Diabetes mellitus type: type 2 Diabetes mellitus complication status: without complication Diabetes mellitus complication detail: D Diabetic retinopathy severity: D Proliferative retinopathy type: P Diabetes mellitus macular edema: D Diabetes mellitus optician apprentice dispensing insulin use: with fci use Laterality: L Chronic kidney disease stage: C Qualified Code(s): E11.9 - Type 2 diabetes mellitus without complications; Z79.4 - managing cognitive engineer (current) use of insulin Plan: CONTINUE AMARYL, CONTINUE TO MONITOR (10) Parkinson disease Status: Chronic Plan: CONTINUE SINEMET, CONTINUE TO MONITOR (11) Depression Status: Chronic Qualifiers: Depression Type: major depressive disorder Major depression recurrence: recurrent Active/Remission status: currently active Major depression episode severity: moderate Psychotic features: P Trimester: T Qualified Code(s): F33.1 - Major depressive disorder, recurrent, moderate Plan: CONTINUE CELEXA, CONTINUE TO MONITOR
[2017-06-17] MEDS: LIPITOR TAB 20 MG PO SCH (17:00)
[2017-06-17] MEDS: NORCO 7.5/325 MG TAB PO PRN ×2 (17:05→23:29)
[2017-06-17] MEDS ORDERED: SNACK - Diabetic Appropriate PO SCH (20:00)
[2017-06-17] MEDS: ARICEPT TAB 10 MG PO SCH (20:40)
[2017-06-17] MEDS: NEURONTIN CAP 100 MG PO SCH (20:40)
[2017-06-17] MEDS: CELEXA PO SCH (20:40)
[2017-06-17] MEDS: MORPHINE SULFATE INJ 2 MG IVP PRN (20:40)
[2017-06-17] MEDS: REQUIP PO PRN (20:40)
[2017-06-18] MEDS: ZANAFLEX PO SCH ×2 (01:43→12:35)
[2017-06-18] MEDS: TORADOL 15 MG VIAL IVP SCH (01:43)
[2017-06-18] MEDS: NS 1000 ML 1,000 ML IV SCH ×3 (02:03→14:42)
[2017-06-18] MEDS: SINEMET (PLAIN) 25/250 MG PO SCH ×2 (06:24→14:43)
[2017-06-18] MEDS: AMARYL TAB 4 MG PO SCH (06:25)
[2017-06-18 06:28] LABS: BASOPHILS % (AUTO) 0.5 % (0.2-1.0); EOSINOPHILS # (AUTO) 0.1 x10^3/uL (0.0-0.2); EOSINOPHILS % (AUTO) 1.9 % (0.9-2.9); HEMATOCRIT 28.2 % (36.0-47.0); HEMOGLOBIN 9.5 g/dL (12.0-16.0); LYMPHOCYTES # (AUTO) 1.6 X10^3/uL (1.3-2.9); LYMPHOCYTES % (AUTO) 25.2 % (21.0-51.0); MEAN CORPUSCULAR HEMOGLOBIN 30.7 pg (27.0-34.0); MEAN CORPUSCULAR HGB CONC 33.6 g/dL (33.0-35.0); MEAN CORPUSCULAR VOLUME 91.5 fL (80.0-100.0); MEAN PLATELET VOLUME 9.3 fL (7.4-11.0); MONOCYTES # (AUTO) 0.5 x10^3/uL (0.3-0.8); MONOCYTES % (AUTO) 7.8 % (0.0-13.0); NEUTROPHILS % (AUTO) 64.6 % (42.0-75.0); PLATELET COUNT 198 X10^3/uL (150.0-450.0); RED BLOOD COUNT 3.08 X10^6/uL (3.5-5.4); WHITE BLOOD COUNT 6.2 X10^3/uL (3.6-10.0)
[2017-06-18] MEDS: NORCO 7.5/325 MG TAB PO PRN (06:30)
[2017-06-18 06:42] LABS: ALBUMIN 2.6 g/dL (3.4-5.0); CALCIUM 7.5 mg/dL (8.5-10.1); CARBON DIOXIDE 26.9 mmol/L (21-32); COR CA(FOR HYPOALB) 8.6 mg/dL (8.5-10.1); CREATININE 1.4 mg/dL (0.55-1.02); TOTAL PROTEIN 5.6 g/dL (6.4-8.2)
[2017-06-18] MEDS ORDERED: FIORICET TAB PO PRN (08:24)
[2017-06-18] MEDS ORDERED: DEPO-Medrol 80 MG VIAL ONE (08:27)
[2017-06-18] MEDS ORDERED: KENALOG INJ 40 MG ONE (08:27)
[2017-06-18] MEDS ORDERED: MARCAINE 0.5% ONE (08:27)
[2017-06-18] MEDS ORDERED: NORVASC TAB 2.5 MG ONE (08:38)
[2017-06-18] MEDS: ELIQUIS PO SCH (09:43)
[2017-06-18] MEDS: PROTONIX TAB 40 MG PO SCH (09:44)
[2017-06-18] MEDS: NORVASC TAB 2.5 MG PO SCH (09:44)
[2017-06-18] MEDS: MICRO K EXTEN CAP 10 MEQ PO SCH (09:44)
[2017-06-18] MEDS: PEPCID TAB 20 MG PO SCH (09:44)
[2017-06-18] MEDS: ZESTRIL TAB 10 MG PO SCH (09:45)
[2017-06-18] MEDS: VITAMIN D3 PO SCH (09:45)
[2017-06-18] MEDS: SYNTHROID 100 mcg TAB PO SCH (09:45)
[2017-06-18] MEDS: COLACE CAP 100 MG PO SCH (09:46)
[2017-06-18] MEDS: ROCEPHIN VIAL 1 GM 1 GM in NS 50 ML IV + SPIKE MINIBAG* 50 ML IV SCH (09:48)
[2017-06-18] MEDS: CORDARONE TAB 200 MG PO SCH (09:48)
[2017-06-18 14:50] VITALS: BP 165/81
== END 2017-06-18 13:50 | disposition home health service (06) ==
LOC: ER 22:57 → OBS 06-16 01:58 → MED/SURG 06-17 15:00
PROVIDERS: ADMIT Internal Medicine; ATTEND Internal Medicine
DX: E86.0 Dehydration (principal); R25.2 Cramp and spasm; G25.81 Restless legs syndrome; I10 Essential (primary) hypertension; E78.5 Hyperlipidemia, unspecified; E03.9 Hypothyroidism, unspecified; E11.8 Type 2 diabetes mellitus with unspecified complications; G20 Parkinson's disease; G44.209 Tension-type headache, unspecified, not intractable; N39.0 Urinary tract infection, site not specified; B96.20 Unspecified Escherichia coli [E. coli] as the cause of diseases classified elsewhere; K21.9 Gastro-esophageal reflux disease without esophagitis; M25.551 Pain in right hip; R11.0 Nausea
CPT/HCPCS: 36415; 80053; 81001; 85025; 87086; 87088; 87186; 94760; 96365; 96374; 96375; 99284; A4222; S0020; S0181; G0378; J0696; J1040; J2270; J2405; J3301

== ENCOUNTER 2017-06-30 18:16 | Observation (INO) | payer OTHER ==
[2017-06-30 19:34] LABS: BASOPHILS % (AUTO) 0.5 % (0.2-1.0); EOSINOPHILS # (AUTO) 0.1 x10^3/uL (0.0-0.2); EOSINOPHILS % (AUTO) 0.6 % (0.9-2.9); HEMATOCRIT 33.6 % (36.0-47.0); HEMOGLOBIN 11.1 g/dL (12.0-16.0); LYMPHOCYTES % (AUTO) 19.1 % (21.0-51.0); MEAN CORPUSCULAR HEMOGLOBIN 30.2 pg (27.0-34.0); MEAN CORPUSCULAR HGB CONC 33.1 g/dL (33.0-35.0); MEAN CORPUSCULAR VOLUME 91.2 fL (80.0-100.0); MEAN PLATELET VOLUME 8.2 fL (7.4-11.0); MONOCYTES # (AUTO) 0.9 x10^3/uL (0.3-0.8); MONOCYTES % (AUTO) 8.9 % (0.0-13.0); NEUTROPHILS # (AUTO) 7.3 x10^3/uL (2.2-4.8); NEUTROPHILS % (AUTO) 70.9 % (42.0-75.0); PLATELET COUNT 261 X10^3/uL (150.0-450.0); RED BLOOD COUNT 3.69 X10^6/uL (3.5-5.4); RED CELL DISTRIBUTION WIDTH 14.8 % (11.6-16.5); WHITE BLOOD COUNT 10.2 X10^3/uL (3.6-10.0)
[2017-06-30 19:41] LABS: ALANINE AMINOTRANSFERASE 22 Units/L (12-78); ALBUMIN 3.6 g/dL (3.4-5.0); ALKALINE PHOSPHATASE 70 Units/L (46-116); ASPARTATE AMINO TRANSFERASE 28 Units/L (15-37); BLOOD UREA NITROGEN 26 mg/dL (7-18); CALCIUM 8.6 mg/dL (8.5-10.1); CARBON DIOXIDE 32.8 mmol/L (21-32); CHLORIDE 103 mmol/L (98-107); COR NA(FOR HYPERGLY) 140 mmol/L (136-145); CREATININE 2.04 mg/dL (0.55-1.02); GLUCOSE 115 mg/dL (65-99); SODIUM 140 mmol/L (136-145); TOTAL PROTEIN 7.2 g/dL (6.4-8.2); eGFR BLACK RACES 30 (>60); eGFR NON BLACK RACES 25 (>60)
[2017-06-30] MEDS ORDERED: MORPHINE SULFATE INJ 2 MG IVP ONE (19:47)
[2017-06-30] MEDS ORDERED: MORPHINE SULFATE INJ 2 MG ONE (19:48)
--- NOTE | 2017-06-30 20:08 | CT ---
CT maxillofacial without contrast Indication: Pain after fall Technique: Helical images through the face without contrast. Coronal and sagittal reformats provided. Findings: There is comminuted fractures of the nasal bones with extensive soft tissue swelling and ga s overlying the bridge of the nose. Orbital leslie appear intact. The mandible is intact. Temporomandi bular joints and upper cervical spine are intact with DJD noted. Vascular plaque seen. Visualized bra in parenchyma shows no hemorrhage with atrophy. The globes themselves appear normal. Conal fat is nor mal. Minimal opacification of the nasal passages from hemorrhage noted. The sinuses are relatively cl ear. Impression: 1. Severely comminuted nasal bone fracture with laceration and contusion. The bilateral nasal lines a re markedly displaced and comminuted. 2. No other facial bone fracture seen. Spine degenerative change and vascular plaque noted. Reported By:
--- NOTE | 2017-06-30 20:12 | RAD ---
HISTORY: Fall with hand pain Study: 4 views of the left hand. Comparison: None Findings: No acute fractures or dislocations. The carpal bones appear well aligned. The visualized portions of the distal radius and ulna are unremarkable. Severe distal joint space loss. No significant soft ti ssue abnormality. IMPRESSION: 1. No acute abnormalities of the left hand. 2. Severe osteoarthritis. Reported By:
--- NOTE | 2017-06-30 20:37 | DR.GENAD ---
HPI - PCP Primary Care Physician: jaqui - HPI Comment HPI Comment: Pt was packing her gear after fishing expedition, when she fell face first and hit her nose and cheeks on the tailgate and steel bumper. She c/ o headache, facial pain and neck pain. She denies LOC. The bridge of her nose has a laceration and the bleeding is controlled. - Complaint/Symptoms Chief Complaint Doctors Comments: Headache and facial pain after fall. Chief Complaint:: fell and hit face and head on bumper and tailgate of truck - Nurses notes reviewed Nurses Notes Review: Yes - Source History Provided: Patient, EMS - Mode of Arrival Mode of Arrival: Stretcher - Timing Onset of Chief Complaint: 06/30/17 Came on: Suddenly - Severity Severity: Moderate PMH - PMH Past Medical History: Yes Past Medical History: Anemia, Arthritis, CHF, Coronary Artery Disease, Diabetes , Dyslipidemia, GERD, Hypertension, Hypothyroidism, Kidney Stones Past Surgical History: Yes Surgical History: Abdominal Surgery, Hysterectomy, Other - Family History History of Family Medical Conditions: Yes Family Medical History: Hypertension - Social History Does patient currently use any type of tobacco product: No Have you used tobacco products in the last 12 months: No Type of Tobacco Use: None Does any household member use tobacco: No Alcohol Use: None Do you use any recreational Drugs:: No Lives With: Family Lives Where: Home - infectious screening In the last 2 months have you had wt loss of >10#?: NO Have you had fever, night sweats or hemotysis?: No Have you traveled outside the country in the last 6 months?: No Isolation: Standard ROS - Review of Systems Constitutional: No Symptoms Reported Eyes: No Symptoms Reported ENTM: See HPI, Nose Pain Respiratoy: No Symptoms Reported Cardiovascular: No Symptoms Reported Gastrointestinal/Abdominal: No Symptoms Reported Genitourinary: No Symptoms Reported Neurological: No Symptoms Reported Musculoskeletal: No Symptoms Reported Integumentary: No Symptoms Reported Hematologic/Lymphatic: No Symptoms Reported Endocrine: No Symptoms Reported Psychiatric: No Symptoms Reported All Other Systems: Reviewed and Negative PE - Vital Signs Vitals: Pulse Rate 64 Respiratory Rate 22 Blood Pressure [Right Arm] 160/76 Blood Pressure [Left Arm] 165/81 Blood Pressure 204/93 O2 Sat by Pulse Oximetry 93 - General Limitations: No Limitations General Appearance: Alert, In Distress - Head Head Exam: Other (forehead hematoma) - Eyes Eye exam: Normal Appearance - ENT ENT Exam: Other (2 cm laceration across the bridge of her nose. No foreign body is noted.) External Ear Exam: Normal External Inspection Nose Exam: Nasal Deviation, Septal Hematoma, Laceration Mouth Exam: Lip Swelling Throat Exam: Normal Inspection - Neck Neck Exam: Other (c collar in place) - Chest Chest Inspection: Normal Inspection, Symmetric Chest Wall Rise - Respiratory Respiratory Exam: Normal Lung Sounds Bilat Respiratory Exam: Bilateral Clear to Auscultation - Cardiovascular Cardiovascular Exam: Regular Rate, Normal Rhythm, Normal Heart Sounds - Abdominal Exam Abdominal Exam: Normal Inspection, Normal Bowel Sounds, Soft - Back Back Exam: Normal Inspection - Neurologic Neurological Exam: Alert, Oriented X3, CN II-XII Intact - Psychiatric Psychiatric Exam: Normal Affect, Normal Mood, Agitated - Skin Skin Exam: Warm, Dry, Intact, Normal Color MDM - Differential Diagnosis Differential Diagnosis: facial laceration, facial fracture , intracerebral hemorrhage. ROR - Labs Reviewed Laboratory Results Reviewed?: Yes Result Diagrams: 06/30/17 19:20 06/30/17 19:20 Laboratory: WBC 10.2 X10^3/uL (3.6-10.0) H 06/30/17 19:20 RBC 3.69 X10^6/uL (3.5-5.4) 06/30/17 19:20 Hgb 11.1 g/dL (12.0-16.0) L 06/30/17 19:20 Hct 33.6 % (36.0-47.0) L 06/30/17 19:20 MCV 91.2 fL (80.0-100.0) 06/30/17 19:20 MCH 30.2 pg (27.0-34.0) 06/30/17 19:20 MCHC 33.1 g/dL (33.0-35.0) 06/30/17 19:20 RDW 14.8 % (11.6-16.5) 06/30/17 19:20 Plt Count 261 X10^3/uL (150.0-450.0) 06/30/17 19:20 MPV 8.2 fL (7.4-11.0) 06/30/17 19:20 Neut % 70.9 % (42.0-75.0) 06/30/17 19:20 Lymph % 19.1 % (21.0-51.0) L 06/30/17 19:20 [place] % 8.9 % (0.0-13.0) 06/30/17 19:20 Eos % 0.6 % (0.9-2.9) L 06/30/17 19:20 Baso % 0.5 % (0.2-1.0) 06/30/17 19:20 Neut # 7.3 x10^3/uL (2.2-4.8) H 06/30/17 19:20 Lymph # 2.0 X10^3/uL (1.3-2.9) 06/30/17 19:20 [place] # 0.9 x10^3/uL (0.3-0.8) H 06/30/17 19:20 Eos # 0.1 x10^3/uL (0.0-0.2) 06/30/17 19:20 Baso # 0.0 X10^3/uL (0.0-0.1) 06/30/17 19:20 Absolute Nucleated RBC 0.0 /100WBC 06/30/17 19:20 INR Target Range - 06/30/17 19:20 INR 1.15 (0.8-1.3) 06/30/17 19:20 PTT 28.1 SECONDS (22.9-36.5) 06/30/17 19:20 PTT Comment - 06/30/17 19:20 Sodium 140 mmol/L (136-145) 06/30/17 19:20 Corrected Sodium 140 mmol/L (136-145) 06/30/17 19:20 Potassium 5.1 mmol/L (3.5-5.1) 06/30/17 19:20 Chloride 103 mmol/L (98-107) 06/30/17 19:20 Carbon Dioxide 32.8 mmol/L (21-32) H 06/30/17 19:20 BUN 26 mg/dL (7-18) H 06/30/17 19:20 Creatinine 2.04 mg/dL (0.55-1.02) H 06/30/17 19:20 Est GFR (MDRD) Af Amer 30 (>60) L 06/30/17 19:20 Est GFR (MDRD) Non-Af 25 (>60) L 06/30/17 19:20 Glucose 115 mg/dL (65-99) H 06/30/17 19:20 Calcium 8.6 mg/dL (8.5-10.1) 06/30/17 19:20 Corrected Calcium TNP 06/30/17 19:20 Total Bilirubin 0.30 mg/dL (0.2-1.0) 06/30/17 19:20 AST 28 Units/L (15-37) 06/30/17 19:20 ALT 22 Units/L (12-78) 06/30/17 19:20 Alkaline Phosphatase 70 Units/L (46-116) 06/30/17 19:20 Total Protein 7.2 g/dL (6.4-8.2) 06/30/17 19:20 Albumin 3.6 g/dL (3.4-5.0) 06/30/17 19:20 Globulin 3.6 g/dL (2.5-4.5) 06/30/17 19:20 Albumin/Globulin Ratio 1.0 Ratio (1.1-2.1) L 06/30/17 19:20 - Diagnosis Discharge Problem: Laceration of nose Qualifiers: Encounter type: initial encounter Qualified Code(s): S01.21XA - Laceration without foreign body of nose, initial encounter Fall Qualifiers: Encounter type: initial encounter Qualified Code(s): W19.XXXA - Unspecified fall, initial encounter Fracture, nasal bone, open Qualifiers: Encounter type: initial encounter Qualified Code(s): S02.2XXB - Fracture of nasal bones, initial encounter for open fracture - Discharge Plan Condition: Stable - Follow ups/Referrals Follow ups/Referrals: Ramiro Petit [Primary Care Provider] - 3 days - Instructions Instructions: Facial Laceration, Laceration Care, Adult, [id number] Additional Instructions: I spoke with Dr Zhou regarding this patient and he agrees to accept this patient for observation. I attempted to contact Dr. Chopra (oral maxillo- facial surgeon) but was not able to contact him this evening. office [phone].
--- NOTE | 2017-06-30 20:43 | CT ---
CT HEAD WITHOUT CONTRAST CLINICAL HISTORY: 81-year-old female status post fall with headache. COMPARISON: CT head March 02, 2017. TECHNIQUE: Multiple, non-contrasted axial CT images were obtained from the skull base to the cranial vertex. Coronal and sagittal reformats were performed. FINDINGS: There are no abnormal intra- or extra-axial fluid collections, midline shift, or mass effec t. Ascencio-white differentiation is normal. Partially empty sella. Global cortical involutional changes are present that are advanced for the patient's stated age. The ventricular system is enlarged but co mmensurate with the degree of sulcal prominence. Periventricular and supraventricular white matter hy podensity is present that is nonspecific in appearance, but most likely to represent microvascular is chemic changes. Senescent calcifications in the bilateral basal ganglia. Atherosclerotic vascular shanel cification is present within the carotid siphons and distal vertebral arteries. Significant combination of bilateral nasal bones, left much greater than right with hemorrhagic fluid in the anterior nasal passages and significant soft tissue contusion/hematoma about the bridge of th e nose and preseptal periorbital soft tissues along the inferior orbital rim bilaterally, right great er the left. Mild polypoid mucosal thickening of the maxillary sinuses and left sphenoid sinus with a small 4 mm o steoma in the left frontal ethmoid air cells. Mastoid air cells and tympanic cavities are clear. IMPRESSION: 1. Comminuted bilateral nasal bone fractures, left greater the right with associated hemorrhagic flui d in the anterior nasal passages and contusion/hematoma about the soft tissues of the face as describ ed. Recommend CT maxillofacial. 2. No definite evidence of an acute intracranial process. 3. Severe microvascular white matter ischemic changes, with associated volume loss. Reported By:
--- NOTE | 2017-06-30 20:54 | CT ---
HISTORY: Injury, fall, neck pain Study: CT cervical spine without contrast Comparison: None Technique: Axial non contrast images with coronal and sagittal reformats. Dose reduction procedures w ere used with MA/kv adjusted for body size. Findings: The bones are osteopenic. The prevertebral soft tissues are normal. There is some straightening of th e normal cervical lordosis. The alignment is otherwise within normal limits. The vertebral bodies are of average height. Disc space narrowing is present C4-5, C5-6, C6-7. The pedicles, spinous processes , and posterior elements are intact. There is some spondylitic foraminal narrowing on the left at C3- 4, on the right at C 5 6 and bilaterally at C6-7. Diffuse bilateral facet degenerative joint disease is present. There is no definite evidence for fracture or dislocation. IMPRESSION: No definite evidence for fracture or dislocation Multilevel degenerative disc disease as described above. Multilevel spondylitic foraminal narrowing at the levels noted above. Diffuse bilateral facet degenerative joint disease Osteopenia Reported By:
[2017-06-30] MEDS ORDERED: DILAUDID INJ IM ONE ×2 (21:45→22:12)
[2017-06-30] MEDS ORDERED: DILAUDID INJ ONE ×2 (21:49→22:22)
[2017-06-30] MEDS ORDERED: HYDROGEN PEROXIDE 3% ONE (21:54)
[2017-06-30] MEDS ORDERED: ANCEF VIAL 1 GM 2 GM in NS 100 ML IV 100 ML IV STA (22:22)
[2017-06-30] MEDS ORDERED: NS 1000 ML 1,000 ML IV SCH (23:00)
[2017-06-30] MEDS ORDERED: ANCEF VIAL 1 GM ONE (23:51)
[2017-06-30] MEDS ORDERED: NS 50 ML IV 50 ML IV ONE (23:51)
[2017-07-01 01:37] VITALS: BMI 27.4
[2017-07-01] MEDS ORDERED: ZOFRAN INJ 4 MG VIAL IVP PRN (01:38)
[2017-07-01] MEDS: MORPHINE SULFATE INJ 2 MG IVP PRN ×4 (01:51→10:48)
[2017-07-01 05:54] LABS: BASOPHILS # (AUTO) 0.1 X10^3/uL (0.0-0.1); BASOPHILS % (AUTO) 0.4 % (0.2-1.0); HEMATOCRIT 30.2 % (36.0-47.0); HEMOGLOBIN 10.1 g/dL (12.0-16.0); LYMPHOCYTES # (AUTO) 1.7 X10^3/uL (1.3-2.9); MEAN CORPUSCULAR HEMOGLOBIN 30.4 pg (27.0-34.0); MEAN CORPUSCULAR HGB CONC 33.3 g/dL (33.0-35.0); MEAN CORPUSCULAR VOLUME 91.2 fL (80.0-100.0); MEAN PLATELET VOLUME 8.8 fL (7.4-11.0); MONOCYTES # (AUTO) 0.9 x10^3/uL (0.3-0.8); MONOCYTES % (AUTO) 6.8 % (0.0-13.0); NEUTROPHILS # (AUTO) 10.8 x10^3/uL (2.2-4.8); NEUTROPHILS % (AUTO) 79.8 % (42.0-75.0); PLATELET COUNT 237 X10^3/uL (150.0-450.0); RED BLOOD COUNT 3.31 X10^6/uL (3.5-5.4); RED CELL DISTRIBUTION WIDTH 14.7 % (11.6-16.5); WHITE BLOOD COUNT 13.5 X10^3/uL (3.6-10.0)
[2017-07-01 06:07] LABS: ALBUMIN 3.3 g/dL (3.4-5.0); CALCIUM 8.2 mg/dL (8.5-10.1); CARBON DIOXIDE 30.3 mmol/L (21-32); COR CA(FOR HYPOALB) 8.8 mg/dL (8.5-10.1); CREATININE 1.84 mg/dL (0.55-1.02); TOTAL PROTEIN 6.6 g/dL (6.4-8.2)
[2017-07-01] MEDS ORDERED: ZOSYN VIAL 2.25 GM 2.25 GM in NS 100 ML IV + SPIKE MINIBAG* 100 ML IV SCH (08:00)
--- NOTE | 2017-07-01 08:12 | DR.CARTERS ---
Short Stay Summary - Admission Date Date of Admission: 06/30/17 - Discharge Date Discharge Date: 07/01/17 - Hospital Course Hospital Course: IS A 81 YEAR OLD PATIENT OF OURS WHO PRESENTED TO THE EMERGENCY ROOM WITH COMPLAINTS OF FACIAL PAIN, HEADACHE, AND NECK PAIN, AND A LACERATION TO THE BRIDGE OF HER NOSE FOLLOWING A FALL. PATIENT REPORTS THAT SHE WAS PACKING UP HER FISHING GEAR, WHEN SHE FELL FACE FIRST AND HIT HER NOSE AND CHEECKS ON THE TAILGATE OF THEIR TRUCK. LACERATION WAS NOTED TO BE 2CM ACROSS THE BRIDGE OF HER NOSE. BLEEDING TO LACERATION IS CONTROLLED AT THE TIME OF ARRIVAL. SHE ALSO REPORTED LEFT HAND PAIN. ON ARRIVAL TO ER, VITALS WERE 98.3-60-18-97%-193/ 83. CBC WNL EXCEPT WBC 10.2, HGB 11.1, HCT 33.6. CMP WNL EXCEPT POTASSIUM 5.1, BUN 26, CREATININE 2.04, GLUCOSE 115. FACIAL BONES CT REPORTED SEVERELY COMMINUTED NASAL BONE FRACTURE WITH LACERATION AND CONTUSION. THE BILATERAL NASAL LINES ARE MARKEDLY DISPLACED AND COMMINUTED. CERVICAL SPINE CT REPORTED MULTILEVEL DDD, MULTILEVEL SPONDYLITIC FORAMINAL NARROWING AT THE LEVELS NOTED ABOVE, DIFFUSE BILATERAL FACET DJD, OSTEOPENIA. BRAIN CT REPORTED SEVERE MICROVASCULAR WHITE MATTER ISCHEMIC CHANGES WITH ASSOCIATED VOLUME LOSS. LEFT HAND XRAY NEGATIVE. SHE WAS GIVEN MORPHINE 2MG IVP, DILAUDID 1MG IM X 2, AND ANCEF 2GM IV IN ER. ADMITTED PATIENT FOR FURTHER TREATMENT AND EVALUATION. SHE WAS STARTED ON NS @80 ML/HR, ZOFRAN 4MG IVP Q6H PRN, MORPHINE 2MG IVP Q4H PRN, ZOSYN 2.25GM IV Q8H. ON THE MORNING FOLLOWING ADMISSION, PATIENT WAS ALERT AND ORIENTED, LYING IN BED WITH FAMILY AT BEDSIDE. SHE CONTINUES WITH COMPLAINTS OF FACIAL PAIN. SHE IS NOTED WITH DRESSING TO NOSE AND OXYGEN MASK. VITALS THIS AM ARE 97.6-70-16-96 %-179/78. CBC WNL EXCEPT WBC 13.5, RBC 3.31, HGB 10.1, HCT 30.2. CMP WNL EXCEPT POTASSIUM 5.4, BUN 26, CREATININE 1.84, GLUCOSE 132, CALCIUM 8.2, TOTAL BILIRUBIN 0.10, AST 41, ALBUMIN 3.3. WE DISCUSSED WITH PATIENT AND FAMILY THE NEED FOR TRANSFER DUE TO CONSULT WITH SPECIALIST AND FOR CARDIAC CLEARANCE PRIOR TO ANY SURGERY THAT MAY BE NEEDED. PATIENT AND FAMILY ARE IN AGREEMENT WITH PLAN. WE SPOKE TO [facility] IN [place]. , HOSPITALIST WILL ACCEPT PATIENT AND CONSULT WITH SURGEONS AND HELP DESK ASSOCIATE AT THEIR FACILITY. PATIENT IS IN STABLE CONDITION AND WILL BE TRANSPORTED VIA EMS. - Discharge Medications Discharge Medications: Hpymkotxov-Qymr-[id number] [FIORICET 50/325/40 MG *] 1 - 2 tab PO QID PRN [History] Ondansetron [Zofran Odt] 8 mg PO BID 06/30/17 [History] - Discharge Plan Disposition: HOME, SELF-CARE Condition: Stable - Follow up/Referrals Follow up/Referrals: Ramiro Petit [Primary Care Provider] - 3 days - Instructions Instructions: Facial Laceration, Laceration Care, Adult, [id number] Additional Instructions: I spoke with Dr Zhou regarding this patient and he agrees to accept this patient for observation. I attempted to contact Dr. Chopra (oral maxillo- facial surgeon) but was not able to contact him this evening. office [phone].
[2017-07-01 08:42] VITALS: BP 178/79
== END 2017-07-01 11:00 | disposition short-term general hospital (02) ==
LOC: ER 18:29 → MED/SURG 22:11
PROVIDERS: ADMIT Internal Medicine; ATTEND Internal Medicine
DX: S02.2XXB Fracture of nasal bones, initial encounter for open fracture (principal); S01.21XA Laceration without foreign body of nose, initial encounter; W18.09XA Striking against other object with subsequent fall, initial encounter; R51 Headache; M54.2 Cervicalgia; I25.10 Atherosclerotic heart disease of native coronary artery without angina pectoris; E78.2 Mixed hyperlipidemia; K21.9 Gastro-esophageal reflux disease without esophagitis; I10 Essential (primary) hypertension; E03.8 Other specified hypothyroidism; Y92.89 Other specified places as the place of occurrence of the external cause; M79.642 Pain in left hand; M50.321 Other cervical disc degeneration at C4-C5 level; M50.322 Other cervical disc degeneration at C5-C6 level; R94.31 Abnormal electrocardiogram [ECG] [EKG]; M50.323 Other cervical disc degeneration at C6-C7 level
CPT/HCPCS: 36415; 70450; 70486; 72125; 73130; 80053; 85025; 85610; 85730; 93005; 94760; 96365; 96374; 96375; 99284; A4216; A4222; G0378; J0690; J2270; J2405; J2543

== ENCOUNTER → 2017-08-22 | Outpatient (CLI) | payer OTHER ==
--- NOTE | 2017-08-22 17:02 | CT ---
CT SINUSES CLINICAL HISTORY: 81-year-old female with history of Parkinson disease, prior stroke and multiple fal ls with nasal fractures. Patient with headache for 3 months. COMPARISON: None. TECHNIQUE: Multiple, noncontrast axial CT images of the paranasal sinuses were obtained and reformatt ed in the axial, sagittal, and coronal planes. The resulting images were processed with soft tissue and bone algorithm. FINDINGS: Limited intracranial evaluation demonstrates no acute abnormalities. Age advanced cortical volume loss is present, with commensurate sulcal and ventricular prominence. Intraconal vascular calc ifications lateral to the right optic nerve. The orbits and globes are otherwise within normal limits . The frontal sinuses and frontal recesses are clear. The anterior and posterior ethmoidal air cells ar e clear. 5 mm osteoma in the anterior left ethmoid air cells. Moderate mucosal thickening of the lef t sphenoid sinus with the dominant right sphenoid sinus. The intersinus septum to the left of midlin e. The sphenoid ostia and sphenoethmoidal recesses are clear. The mastoid air cells, mastoid antrum, and tympanic cavities are clear. Skull base foramina are normal in appearance. Scattered polypoid muc osal thickening of the maxillary sinuses. The maxillary ostia, infundibula, and middle meati are tanner nt. No fluid levels are identified. Nasal cavity is within normal limits. Nasopharynx is normal. Bila teral cyndee bullosa. Chronic nasal bone fractures. IMPRESSION: 1. Mucosal thickening within the maxillary and left sphenoid sinus as described, which can be seen wi th acute/chronic sinusitis. 2. Demonstrable patency of the frontal recesses, sphenoethmoidal recesses, and ostiomeatal units. 3. Chronic nasal bone fractures. Reported By:
== END ==
LOC: RAD 15:31
PROVIDERS: ATTEND Internal Medicine
DX: R51 Headache (principal); J01.81 Other acute recurrent sinusitis; S02.2XXA Fracture of nasal bones, initial encounter for closed fracture; X58.XXXA Exposure to other specified factors, initial encounter
CPT/HCPCS: 70486

== ENCOUNTER 2017-11-09 17:08 | Emergency (ER) | payer OTHER ==
[2017-11-09 17:17] VITALS: BMI 27.3
--- NOTE | 2017-11-09 17:31 | DR.GENAD ---
HPI - PCP Primary Care Physician: EDUAR ESCALANTE - HPI Comment HPI Comment: PATIENT TOOK HOME MED FOR HEADACHE WITHOUT RELIEF. HAVING DYSURIA AND URINARY FREQUENCY. FINISH MED FOR UTI ONE WEEK AGO. NO FEVER. PAIN LEFT FLANK. - Complaint/Symptoms Chief Complaint Doctors Comments: HEADACHE, PAINFULL URINATION. Chief Complaint:: PTS DAUGHTER STATES " DOCTOR EDUAR DX HER WITH A UTI AND SHE TOOK ALL OF THOSE AND NOW SHE IS HAVING SOME PAINFUL URINATION, ".. AND C/O OF A H/A..BR Self Treatment fo Chief Complaint: NORCO TIMES 2 .. AT 1300 - Nurses notes reviewed Nurses Notes Review: Yes - Source History Provided: Patient, Family Member - Mode of Arrival Mode of Arrival: Ambulatory - Timing Onset of Chief Complaint: 11/09/17 Came on: Suddenly - Duration Duration: Constant Duration: Hours - Severity Severity: Moderate PMH - PMH Past Medical History: Yes Past Medical History: Anemia, Arthritis, CHF, Coronary Artery Disease, Diabetes , Dyslipidemia, GERD, Hypertension, Hypothyroidism, Kidney Stones Past Surgical History: Yes Surgical History: Abdominal Surgery, Hysterectomy, Ortho Surgery - Family History History of Family Medical Conditions: Yes Family Medical History: Hypertension - Social History Does patient currently use any type of tobacco product: No Have you used tobacco products in the last 12 months: No Type of Tobacco Use: None Does any household member use tobacco: No Alcohol Use: None Do you use any recreational Drugs:: No Lives With: Family Lives Where: Home - infectious screening In the last 2 months have you had wt loss of >10#?: NO Have you had fever, night sweats or hemotysis?: No Have you traveled outside the country in the last 6 months?: No Isolation: Standard ROS - Review of Systems Constitutional: negative: Chills, Fever, Weakness, Fatigue Eyes: negative: Eye Pain, Discharge ENTM: negative: Ear Pain, Nose Discharge, Nose Congestion, Throat Pain Respiratoy: Short of Breath (ON EXACERTION.). negative: Productive Cough, Non- Productive Cough, Wheezing, Hemoptysis Cardiovascular: negative: Chest Pain Gastrointestinal/Abdominal: Abdominal Pain, Other (LT FLANK PAIN). negative: Diarrhea, Nausea, Vomiting Genitourinary: Dysuria, Frequency Neurological: Headache. negative: Weakness, Dizziness Musculoskeletal: No Symptoms Reported Hematologic/Lymphatic: No Symptoms Reported Endocrine: No Symptoms Reported All Other Systems: Reviewed and Negative PE - Vital Signs Vitals: Temperature 97.2 F Pulse Rate 61 Respiratory Rate 22 Blood Pressure [Left Calf] 178/79 Blood Pressure [Right Arm] 179/78 Blood Pressure [Left Arm] 155/77 Blood Pressure 188/89 O2 Sat by Pulse Oximetry 95 - General Limitations: No Limitations General Appearance: Alert - Head Head Exam: Normal Inspection - Eyes Eye exam: Normal Appearance - ENT ENT Exam: Normal External Ear Exam External Ear Exam: Normal External Inspection TM/Canal Exam: Bilateral Normal Nose Exam: Normal Nose Exam Mouth Exam: Normal Inspection - Neck Neck Exam: Trachea Midline - Chest Chest Inspection: Symmetric Chest Wall Rise - Respiratory Respiratory Exam: Normal Lung Sounds Bilat Respiratory Exam: Bilateral Clear to Auscultation - Cardiovascular Cardiovascular Exam: Regular Rate, Normal Rhythm, Normal Heart Sounds - Abdominal Exam Abdominal Exam: Normal Bowel Sounds, Soft. negative: Tenderness - Extremities Extremities Exam: Normal Inspection - Back Back Exam: (L) CVA Tenderness - Neurologic Neurological Exam: Alert, Oriented X3 - Psychiatric Psychiatric Exam: Normal Affect, Normal Mood - Skin Skin Exam: Normal Color [facility] - Additional Information Additional Information Obtained From: Family - Differential Diagnosis Differential Diagnosis: UTI, DYSURIA, NEUROGENIC BLADDER, PYELONEPHRITIS, KIDNEY STONE, ABD PAIN Course - Treatment Treatment: SEE ORDERS. - Education/Counseling Education/Counseling: Patient, Family, Education Educated On: Treatment, Diagnosis, Needs for Follow Up ROR - Labs Reviewed Laboratory Results Reviewed?: Yes Result Diagrams: 11/09/17 18:14 11/09/17 18:14 Laboratory: WBC 7.4 X10^3/uL (3.6-10.0) 11/09/17 18:14 RBC 3.64 X10^6/uL (3.5-5.4) 11/09/17 18:14 Hgb 9.3 g/dL (12.0-16.0) L 11/09/17 18:14 Hct 28.8 % (36.0-47.0) L 11/09/17 18:14 MCV 79.1 fL (80.0-100.0) L 18 18:14 MCH 25.5 pg (27.0-34.0) L 11/09/17 18:14 MCHC 32.2 g/dL (33.0-35.0) L 11/09/17 18:14 RDW 17.8 % (11.6-16.5) H 11/09/17 18:14 Plt Count 269 X10^3/uL (150.0-450.0) 11/09/17 18:14 Plt Count Comment Adequate (ADEQUATE) 11/09/17 18:14 MPV 8.0 fL (7.4-11.0) 11/09/17 18:14 Neut % 50.9 % (42.0-75.0) 11/09/17 18:14 Lymph % 38.3 % (21.0-51.0) 11/09/17 18:14 [place] % 8.7 % (0.0-13.0) 11/09/17 18:14 Eos % 1.5 % (0.9-2.9) 11/09/17 18:14 Baso % 0.6 % (0.2-1.0) 11/09/17 18:14 Neut # 3.7 x10^3/uL (2.2-4.8) 11/09/17 18:14 Lymph # 2.8 X10^3/uL (1.3-2.9) 11/09/17 18:14 [place] # 0.6 x10^3/uL (0.3-0.8) 11/09/17 18:14 Eos # 0.1 x10^3/uL (0.0-0.2) 11/09/17 18:14 Baso # 0.0 X10^3/uL (0.0-0.1) 11/09/17 18:14 Absolute Nucleated RBC 0.0 /100WBC 11/09/17 18:14 Plt Morphology Comment Normal (NORMAL) 11/09/17 18:14 RBC Morphology Abnormal (NORMAL) A 11/09/17 18:14 Hypochromasia Slight A 11/09/17 18:14 Anisocytosis 1+ A 11/09/17 18:14 Sodium 141 mmol/L (136-145) 11/09/17 18:14 Corrected Sodium TNP 11/09/17 18:14 Potassium 4.3 mmol/L (3.5-5.1) 11/09/17 18:14 Chloride 107 mmol/L (98-107) 11/09/17 18:14 Carbon Dioxide 28.1 mmol/L (21-32) 11/09/17 18:14 BUN 30 mg/dL (7-18) H 11/09/17 18:14 Creatinine 2.06 mg/dL (0.55-1.02) H 11/09/17 18:14 Est GFR (MDRD) Af Amer 30 (>60) L 11/09/17 18:14 Est GFR (MDRD) Non-Af 24 (>60) L 11/09/17 18:14 Glucose 99 mg/dL (65-99) 11/09/17 18:14 Calcium 8.8 mg/dL (8.5-10.1) 11/09/17 18:14 Corrected Calcium TNP 11/09/17 18:14 Total Bilirubin 0.30 mg/dL (0.2-1.0) 11/09/17 18:14 AST 16 Units/L (15-37) 11/09/17 18:14 ALT 10 Units/L (12-78) L 11/09/17 18:14 Alkaline Phosphatase 65 Units/L (46-116) 11/09/17 18:14 Total Protein 6.9 g/dL (6.4-8.2) 11/09/17 18:14 Albumin 3.5 g/dL (3.4-5.0) 11/09/17 18:14 Globulin 3.4 g/dL (2.5-4.5) 11/09/17 18:14 Albumin/Globulin Ratio 1.0 Ratio (1.1-2.1) L 11/09/17 18:14 Specimen Type Clean catch urine 11/09/17 17:45 Urine Color Yellow (YELLOW) 11/09/17 17:45 Urine Appearance Clear (CLEAR) 11/09/17 17:45 Urine pH 6.0 (5.0 - 8.0) 11/09/17 17:45 Ur Specific [place] 1.015 (1.000-1.030) 11/09/17 17:45 Urine Protein 1+ (NEGATIVE) 11/09/17 17:45 Urine Glucose (UA) Negative (NEGATIVE) 11/09/17 17:45 Urine Ketones Negative (NEGATIVE) 11/09/17 17:45 Urine Occult Blood Negative (NEGATIVE) 11/09/17 17:45 Urine Nitrite Negative (NEGATIVE) 11/09/17 17:45 Urine Bilirubin Negative (NEGATIVE) 11/09/17 17:45 Urine Urobilinogen Normal (NORMAL) 11/09/17 17:45 Ur Leukocyte Esterase 1+ (NEGATIVE) 11/09/17 17:45 Urine RBC Negative /HPF (NEGATIVE) 11/09/17 17:45 Urine WBC 1 - 3 /HPF (NEGATIVE) 11/09/17 17:45 Ur Squamous Epith Cells Rare /HPF (NEGATIVE) 11/09/17 17:45 Urine Bacteria Negative /HPF (NEGATIVE) 11/09/17 17:45 Ur Culture Indicated? No/not indicated 11/09/17 17:45 - XRAY XRAY Interpreted by: Radiologist XRAY Findings: REPORT DISCUSS WITH PATIENT AND HER FAMILY. - Diagnosis Discharge Problem: Dysuria, Left flank pain Abdominal pain Qualifiers: Abdominal location: left upper quadrant Qualified Code(s): R10.12 - Left upper quadrant pain - Discharge Plan Disposition: HOME, SELF-CARE Condition: Stable Prescriptions: Phenazopyridine HCl [Pyridium] 200 mg PO TID PRN #9 tablet PRN Reason: - Follow ups/Referrals Follow ups/Referrals: Ramiro Petit [Primary Care Provider] - 3 days - Instructions Instructions: Abdominal Pain, Adult, [id number], Dysuria, Back Pain, Adult, [id number] Additional Instructions: RETURN TO ED IF WORSE.
[2017-11-09 17:51] LABS: BILIRUBIN,URINE NEGATIVE (NEGATIVE); BLOOD/HEMOGLOBIN,URINE NEGATIVE (NEGATIVE); GLUCOSE, URINE NEGATIVE (NEGATIVE); KETONES,URINE NEGATIVE (NEGATIVE); LEUKOCYTE ESTERASE ,URINE 1+ (NEGATIVE); NITRITES,URINE NEGATIVE (NEGATIVE); PROTEIN,URINE 1+ (NEGATIVE); UROBILINOGEN,URINE NORMAL (NORMAL)
[2017-11-09 17:53] LABS: APPEARANCE,URINE CLEAR (CLEAR); COLOR,URINE YELLOW (YELLOW)
[2017-11-09 17:55] LABS: BACTERIA,URINE NEGATIVE /HPF (NEGATIVE); RBC,URINE NEGATIVE /HPF (NEGATIVE); SQUAMOUS EPITHELIAL CELL,UR RARE /HPF (NEGATIVE)
[2017-11-09] MEDS ORDERED: MORPHINE SULFATE INJ 4 MG IM ONE (17:56)
[2017-11-09] MEDS ORDERED: ZOFRAN INJ 4 MG VIAL IM ONE (17:56)
[2017-11-09] MEDS ORDERED: ZOFRAN INJ 4 MG VIAL ONE (18:07)
[2017-11-09] MEDS ORDERED: ZOFRAN INJ 4 MG VIAL IVP ONE (18:19)
[2017-11-09] MEDS ORDERED: MORPHINE SULFATE INJ 4 MG IVP ONE (18:19)
[2017-11-09 18:22] LABS: BASOPHILS % (AUTO) 0.6 % (0.2-1.0); EOSINOPHILS # (AUTO) 0.1 x10^3/uL (0.0-0.2); EOSINOPHILS % (AUTO) 1.5 % (0.9-2.9); HEMATOCRIT 28.8 % (36.0-47.0); HEMOGLOBIN 9.3 g/dL (12.0-16.0); LYMPHOCYTES # (AUTO) 2.8 X10^3/uL (1.3-2.9); LYMPHOCYTES % (AUTO) 38.3 % (21.0-51.0); MEAN CORPUSCULAR HEMOGLOBIN 25.5 pg (27.0-34.0); MEAN CORPUSCULAR HGB CONC 32.2 g/dL (33.0-35.0); MEAN CORPUSCULAR VOLUME 79.1 fL (80.0-100.0); MONOCYTES # (AUTO) 0.6 x10^3/uL (0.3-0.8); MONOCYTES % (AUTO) 8.7 % (0.0-13.0); NEUTROPHILS # (AUTO) 3.7 x10^3/uL (2.2-4.8); NEUTROPHILS % (AUTO) 50.9 % (42.0-75.0); PLATELET COUNT 269 X10^3/uL (150.0-450.0); RED BLOOD COUNT 3.64 X10^6/uL (3.5-5.4); RED CELL DISTRIBUTION WIDTH 17.8 % (11.6-16.5); WHITE BLOOD COUNT 7.4 X10^3/uL (3.6-10.0)
[2017-11-09 18:34] LABS: ANISOCYTOSIS 1+; HYPOCHROMASIA SLIGHT; PLATELET MORPHOLOGY COMMENT NORMAL (NORMAL)
[2017-11-09 18:35] LABS: ALANINE AMINOTRANSFERASE 10 Units/L (12-78); ALBUMIN 3.5 g/dL (3.4-5.0); ALKALINE PHOSPHATASE 65 Units/L (46-116); ASPARTATE AMINO TRANSFERASE 16 Units/L (15-37); BLOOD UREA NITROGEN 30 mg/dL (7-18); CALCIUM 8.8 mg/dL (8.5-10.1); CARBON DIOXIDE 28.1 mmol/L (21-32); CHLORIDE 107 mmol/L (98-107); CREATININE 2.06 mg/dL (0.55-1.02); SODIUM 141 mmol/L (136-145); TOTAL PROTEIN 6.9 g/dL (6.4-8.2); eGFR BLACK RACES 30 (>60); eGFR NON BLACK RACES 24 (>60)
--- NOTE | 2017-11-09 18:57 | CT ---
HISTORY: Bladder infection, left flank pain Study: CT abdomen and pelvis without IV or oral contrast Comparison: Priors Technique: Multiple axial images of the abdomen and pelvis were obtained from the lung bases to the pubic symphy sis without the administration of IV or oral contrast. Coronal And sagittal images are also reviewed. Dose reduction techniques utilized automatic exposure control. Findings: A few small areas of scarring is seen in the lung bases. Heavy coronary artery calcifications are see n on the left. The liver is normal in size. There are prominent hepatic veins as well as portal veins . The spleen, pancreas, and adrenal glands are unremarkable in their CT appearance. The gallbladder i s surgically absent.. The kidneys are symmetrically small without evidence of renal mass, stone or hy dronephrosis. Atherosclerotic calcifications are present involving the leslie of the abdominal aorta w ithout aneurysm formation. No significant mesenteric lymphadenopathy or stranding can be observed. N o free fluid or free air is seen within the abdomen. No bowel wall thickening or bowel dilatation is present. Uncomplicated appearing sigmoid colon diverticulosis is present. No diverticulitis, absces s or fluid is seen. There are surgical barbara present involving the region of the cecum. There is co nsiderable metallic artifact present within the pelvis on patient's left metallic hip arthroplasty.. The urinary bladder is grossly unremarkable. Uterus and ovaries are not identified and may have been surgically removed. Degenerative changes are present involving the L5/S1 level as well as the upper endplate at T12. There is an incidental periumbilical ventral hernia measuring 4 cm in diameter. This is seen to contain peritoneal fat only and no bowel. IMPRESSION: No renal mass, stone or hydronephrosis. Uncomplicated appearing sigmoid colon diverticulosis. No diverticulitis, abscess or fluid is seen. Surgically absent gallbladder uterus and ovaries. There has been surgery involving the region of the cecum also. No evidence of bowel obstruction or perforation is seen. Incidental periumbilical ventral hernia. Reported By:
[2017-11-09] MEDS ORDERED: PYRIDIUM PO ONE ×2 (19:13→19:20)
[2017-11-09 19:27] VITALS: BP 155/77
== END 2017-11-09 19:27 | disposition home or self-care (01) ==
LOC: ER 17:26
DX: R30.0 Dysuria (principal); R10.12 Left upper quadrant pain
CPT/HCPCS: 36415; 36591; 74176; 80053; 81001; 85025; 96365; 96374; 96375; 99283; 99284; J2270; J2405

== ENCOUNTER 2017-11-18 14:24 | Inpatient (IN) | payer OTHER ==
[2017-11-18] MEDS ORDERED: PHARMACY CONSULT - TPN XX SCH (15:00)
[2017-11-18 15:23] LABS: BASOPHILS # (AUTO) 0.1 X10^3/uL (0.0-0.1); BASOPHILS % (AUTO) 0.8 % (0.2-1.0); EOSINOPHILS # (AUTO) 0.1 x10^3/uL (0.0-0.2); EOSINOPHILS % (AUTO) 0.8 % (0.9-2.9); HEMATOCRIT 30.2 % (36.0-47.0); HEMOGLOBIN 9.4 g/dL (12.0-16.0); LYMPHOCYTES % (AUTO) 31.4 % (21.0-51.0); MEAN CORPUSCULAR HEMOGLOBIN 25.3 pg (27.0-34.0); MEAN CORPUSCULAR HGB CONC 31.2 g/dL (33.0-35.0); MEAN PLATELET VOLUME 8.6 fL (7.4-11.0); MONOCYTES # (AUTO) 0.5 x10^3/uL (0.3-0.8); MONOCYTES % (AUTO) 7.3 % (0.0-13.0); NEUTROPHILS # (AUTO) 3.9 x10^3/uL (2.2-4.8); NEUTROPHILS % (AUTO) 59.7 % (42.0-75.0); PLATELET COUNT 240 X10^3/uL (150.0-450.0); RED BLOOD COUNT 3.72 X10^6/uL (3.5-5.4); RED CELL DISTRIBUTION WIDTH 18.8 % (11.6-16.5); WHITE BLOOD COUNT 6.5 X10^3/uL (3.6-10.0)
[2017-11-18 15:24] LABS: BILIRUBIN,URINE 1+ (NEGATIVE); BLOOD/HEMOGLOBIN,URINE NEGATIVE (NEGATIVE); GLUCOSE, URINE NEGATIVE (NEGATIVE); KETONES,URINE NEGATIVE (NEGATIVE); LEUKOCYTE ESTERASE ,URINE 1+ (NEGATIVE); NITRITES,URINE POSITIVE (NEGATIVE); PROTEIN,URINE 1+ (NEGATIVE); UROBILINOGEN,URINE 2+ (NORMAL)
[2017-11-18 15:29] LABS: ALANINE AMINOTRANSFERASE 13 Units/L (12-78); ALBUMIN 3.4 g/dL (3.4-5.0); ALKALINE PHOSPHATASE 62 Units/L (46-116); ASPARTATE AMINO TRANSFERASE 20 Units/L (15-37); BLOOD UREA NITROGEN 31 mg/dL (7-18); CALCIUM 8.7 mg/dL (8.5-10.1); CARBON DIOXIDE 29.1 mmol/L (21-32); CHLORIDE 102 mmol/L (98-107); COR NA(FOR HYPERGLY) 140 mmol/L (136-145); CREATININE 2.43 mg/dL (0.55-1.02); PLATELET MORPHOLOGY COMMENT NORMAL (NORMAL); SODIUM 138 mmol/L (136-145); TOTAL PROTEIN 6.8 g/dL (6.4-8.2); eGFR BLACK RACES 24 (>60); eGFR NON BLACK RACES 20 (>60)
[2017-11-18 15:31] LABS: POIKILOCYTOSIS SLIGHT
[2017-11-18 16:27] LABS: APPEARANCE,URINE CLEAR (CLEAR); BACTERIA,URINE TRACE /HPF (NEGATIVE); COLOR,URINE AMBER (YELLOW); RBC,URINE RARE /HPF (NEGATIVE); SQUAMOUS EPITHELIAL CELL,UR FEW /HPF (NEGATIVE)
[2017-11-18 16:28] LABS: AMORPHOUS SEDIMENT,UR TRACE /HPF (NEGATIVE); HYALINE CASTS, URINE MANY /LPF (NEGATIVE)
[2017-11-18 16:35] VITALS: BMI 26.9
[2017-11-18] MEDS: ALBUMIN HUMAN 25%- 100ML 100 ML IV SCH (16:36)
[2017-11-18] MEDS: NS 1000 ML 1,000 ML IV SCH (16:37)
[2017-11-18] MEDS: PROCALAMINE 3 % 1,000 ML IV SCH (16:37)
[2017-11-18] MEDS: TYLENOL 325 MG TAB PO PRN (18:29)
[2017-11-18] MEDS: NORCO 7.5/325 MG TAB PO PRN (21:10)
[2017-11-18] MEDS ORDERED: FLONASE NASAL SPRAY ENOSTRIL PRN (23:36)
[2017-11-19] MEDS: NS 1000 ML 1,000 ML IV SCH ×2 (04:55→12:30)
[2017-11-19] MEDS: NORCO 7.5/325 MG TAB PO PRN ×3 (06:02→20:31)
[2017-11-19 06:14] LABS: BASOPHILS % (AUTO) 0.5 % (0.2-1.0); EOSINOPHILS # (AUTO) 0.1 x10^3/uL (0.0-0.2); EOSINOPHILS % (AUTO) 1.8 % (0.9-2.9); HEMATOCRIT 24.7 % (36.0-47.0); HEMOGLOBIN 8.2 g/dL (12.0-16.0); LYMPHOCYTES # (AUTO) 1.9 X10^3/uL (1.3-2.9); LYMPHOCYTES % (AUTO) 33.8 % (21.0-51.0); MEAN CORPUSCULAR HEMOGLOBIN 26.5 pg (27.0-34.0); MEAN CORPUSCULAR HGB CONC 33.1 g/dL (33.0-35.0); MEAN CORPUSCULAR VOLUME 80.1 fL (80.0-100.0); MEAN PLATELET VOLUME 8.6 fL (7.4-11.0); MONOCYTES # (AUTO) 0.5 x10^3/uL (0.3-0.8); MONOCYTES % (AUTO) 8.9 % (0.0-13.0); NEUTROPHILS # (AUTO) 3.1 x10^3/uL (2.2-4.8); PLATELET COUNT 215 X10^3/uL (150.0-450.0); RED BLOOD COUNT 3.09 X10^6/uL (3.5-5.4); RED CELL DISTRIBUTION WIDTH 17.8 % (11.6-16.5); WHITE BLOOD COUNT 5.7 X10^3/uL (3.6-10.0)
[2017-11-19 06:32] LABS: ALBUMIN 3.1 g/dL (3.4-5.0); CALCIUM 8.2 mg/dL (8.5-10.1); CARBON DIOXIDE 28.3 mmol/L (21-32); COR CA(FOR HYPOALB) 8.9 mg/dL (8.5-10.1); CREATININE 2.07 mg/dL (0.55-1.02); TOTAL PROTEIN 5.9 g/dL (6.4-8.2)
[2017-11-19] MEDS: ALBUMIN HUMAN 25%- 100ML 100 ML IV SCH (09:03)
[2017-11-19] MEDS ORDERED: PEPCID TAB 20 MG PO SCH (10:00)
[2017-11-19] MEDS: TYLENOL 325 MG TAB PO PRN (10:40)
[2017-11-19] MEDS ORDERED: NORVASC TAB 2.5 MG ONE (11:54)
[2017-11-19] MEDS ORDERED: PYRIDIUM PO PRN (12:00)
[2017-11-19] MEDS: FLONASE NASAL SPRAY ENOSTRIL SCH (12:02)
[2017-11-19] MEDS: MICRO K EXTEN CAP 10 MEQ PO SCH (12:03)
[2017-11-19] MEDS: COLACE CAP 100 MG PO SCH ×2 (12:03→20:32)
[2017-11-19] MEDS: PEPCID TAB 20 MG PO SCH ×2 (12:03→20:32)
[2017-11-19] MEDS: PROTONIX TAB 40 MG PO SCH ×2 (12:03→20:32)
[2017-11-19] MEDS: VITAMIN D3 PO SCH (12:04)
[2017-11-19] MEDS: COREG TAB 6.25 MG PO SCH (12:04)
[2017-11-19] MEDS: CELEXA PO SCH (12:04)
[2017-11-19] MEDS: ZESTRIL TAB 10 MG PO SCH (12:04)
[2017-11-19] MEDS: NEURONTIN CAP 300 MG PO SCH ×3 (12:04→22:04)
[2017-11-19] MEDS: SYNTHROID 100 mcg TAB PO SCH (12:05)
[2017-11-19] MEDS: NORVASC TAB 2.5 MG PO SCH (12:05)
[2017-11-19] MEDS: ROCEPHIN VIAL 1 GM 1 GM in NS 100 ML IV 100 ML IV SCH (12:06)
[2017-11-19] MEDS: SINEMET (PLAIN) 25/250 MG PO SCH ×2 (14:24→22:05)
[2017-11-19] MEDS: LIPITOR TAB 20 MG PO SCH (18:25)
[2017-11-19] MEDS: PROCALAMINE 3 % 1,000 ML IV SCH (18:25)
[2017-11-19] MEDS: ZOFRAN TAB 4 MG SL PRN (18:25)
[2017-11-19] MEDS: KLONOPIN TAB 1 MG PO SCH (20:32)
[2017-11-19] MEDS: CORDARONE TAB 200 MG PO SCH (20:33)
[2017-11-19] MEDS: ELIQUIS PO SCH (20:34)
[2017-11-19] MEDS: ARICEPT TAB 10 MG PO SCH (20:35)
[2017-11-19] MEDS: REQUIP PO PRN (21:57)
[2017-11-20] MEDS: NEURONTIN CAP 300 MG PO SCH ×3 (06:06→22:31)
[2017-11-20] MEDS: AMARYL TAB 4 MG PO SCH (06:07)
[2017-11-20] MEDS: SINEMET (PLAIN) 25/250 MG PO SCH ×3 (06:07→22:31)
[2017-11-20] MEDS: NS 1000 ML 1,000 ML IV SCH ×3 (06:07→22:32)
[2017-11-20 06:16] LABS: BASOPHILS % (AUTO) 0.5 % (0.2-1.0); EOSINOPHILS # (AUTO) 0.1 x10^3/uL (0.0-0.2); HEMATOCRIT 25.7 % (36.0-47.0); HEMOGLOBIN 8.2 g/dL (12.0-16.0); LYMPHOCYTES # (AUTO) 2.3 X10^3/uL (1.3-2.9); LYMPHOCYTES % (AUTO) 35.9 % (21.0-51.0); MEAN CORPUSCULAR HGB CONC 31.9 g/dL (33.0-35.0); MEAN CORPUSCULAR VOLUME 81.4 fL (80.0-100.0); MEAN PLATELET VOLUME 8.7 fL (7.4-11.0); MONOCYTES # (AUTO) 0.6 x10^3/uL (0.3-0.8); MONOCYTES % (AUTO) 9.5 % (0.0-13.0); NEUTROPHILS # (AUTO) 3.4 x10^3/uL (2.2-4.8); NEUTROPHILS % (AUTO) 52.1 % (42.0-75.0); PLATELET COUNT 207 X10^3/uL (150.0-450.0); RED BLOOD COUNT 3.16 X10^6/uL (3.5-5.4); RED CELL DISTRIBUTION WIDTH 18.3 % (11.6-16.5); WHITE BLOOD COUNT 6.5 X10^3/uL (3.6-10.0)
[2017-11-20 06:19] LABS: ALBUMIN 3.2 g/dL (3.4-5.0); CALCIUM 8.3 mg/dL (8.5-10.1); CARBON DIOXIDE 29.1 mmol/L (21-32); COR CA(FOR HYPOALB) 8.9 mg/dL (8.5-10.1); CREATININE 1.62 mg/dL (0.55-1.02); TOTAL PROTEIN 6.1 g/dL (6.4-8.2)
[2017-11-20] MEDS ORDERED: NORVASC TAB 2.5 MG ONE ×2 (09:02→11:11)
[2017-11-20] MEDS: PROTONIX TAB 40 MG PO SCH ×2 (09:13→20:15)
[2017-11-20] MEDS: CELEXA PO SCH (09:13)
[2017-11-20] MEDS: SYNTHROID 100 mcg TAB PO SCH (09:13)
[2017-11-20] MEDS: MICRO K EXTEN CAP 10 MEQ PO SCH (09:13)
[2017-11-20] MEDS: PEPCID TAB 20 MG PO SCH ×2 (09:14→20:16)
[2017-11-20] MEDS: ELIQUIS PO SCH ×2 (09:14→20:17)
[2017-11-20] MEDS: ZESTRIL TAB 10 MG PO SCH (09:15)
[2017-11-20] MEDS: COLACE CAP 100 MG PO SCH ×2 (09:15→20:16)
[2017-11-20] MEDS: COREG TAB 6.25 MG PO SCH (09:15)
[2017-11-20] MEDS: CORDARONE TAB 200 MG PO SCH ×2 (09:15→20:20)
[2017-11-20] MEDS: ROCEPHIN VIAL 1 GM 1 GM in NS 100 ML IV 100 ML IV SCH (09:17)
[2017-11-20] MEDS: NORVASC TAB 2.5 MG PO SCH (09:21)
[2017-11-20] MEDS: FLONASE NASAL SPRAY ENOSTRIL SCH (09:21)
[2017-11-20] MEDS: ALBUMIN HUMAN 25%- 100ML 100 ML IV SCH (09:22)
[2017-11-20] MEDS: BENTYL CAP 10 MG PO SCH ×4 (11:14→20:16)
[2017-11-20] MEDS: VITAMIN D3 PO SCH (11:14)
[2017-11-20] MEDS: CIPRO IV 400 MG PREMIX* 400 MG/200 ML IV.SOLN. IV SCH ×2 (11:15→20:15)
[2017-11-20] MEDS: NORCO 7.5/325 MG TAB PO PRN ×2 (11:15→20:16)
[2017-11-20] MEDS: LIPITOR TAB 20 MG PO SCH (17:15)
[2017-11-20] MEDS: KLONOPIN TAB 1 MG PO SCH (20:15)
[2017-11-20] MEDS: ARICEPT TAB 10 MG PO SCH (20:16)
[2017-11-20] MEDS: REQUIP PO PRN (20:20)
--- NOTE | 2017-11-20 20:26 | DR.H&P ---
H&P - History & Physical for Day of: H&P Date: 11/18/17 - Chief Complaint Chief Complaint: nausea, vomiting, abdominal pain, congestion - Allergies Allergies/Adverse Reactions: Allergies Allergy/AdvReac Type Severity Reaction Status Date / Time ADHESIVE TAPE Allergy Uncoded 11/09/17 17:13 - History of Present Illness History of Present Illness: is a 82 year old patient of ours who is a direct admission from our office. She presented with complaints of nausea, vomiting, nasal congestion, and suprapubic pain. Patient has recently been treated for a urinary tract infection. She reports compliance with antibiotics, however, symptoms have not improved. Patient has not been able to tolerate oral intake without nausea and vomiting. She was seen in the ER 10 days ago where a CT of the abd/pelvis was obtained. It reported uncomplicated sigmoid colon diverticulosis and a periumbilical ventral hernia. Patient also states that she has had nasal congestion and headache for the past week that has progressively gotten worse. We admitted patient to the hospital for further treatment and evaluation. We plan to obtain labs on admission. We will start her on normal saline at 50ml/hr, albumin 25% IV daily, and procalamine 3% IV at 40ml/hr. On admission, vital signs were 97.8, 77, 18, 94% RA, 127/76. Labs were obtained. Abnormal lab values include the following: Hgb 9.4, Hct 30.2, MCH 25.3, MCHC 31.2, RDW 18.8, BUN 31, Creatinine 2.43, GFR af 24, GFR non 20, Glucose 203, A/ G Ratio 1.0. Urinalysis: Mini, Protein 1+, Nitrite Positive, Bilirubin 1+, Urobilinogen 2+, Leuk Est 1+, RBC Rare, WBC Rare, Bacteria Trace, Hyaline Casts Many. We plan to follow up with am labs and continue to monitor patient. - Past Medical History Past Medical History: Anemia, Arthritis, CHF, Coronary Artery Disease, Diabetes , Dyslipidemia, GERD, Hypertension, Hypothyroidism, Kidney Stones Additional Medical History: Vision Deficit, Parkinson's Disease, Atrial Fibrillation, Bronchitis, Pneumonia, Constipation, Diarrhea, Colon Cancer, Breast Cancer, Urinary Tract Infections, Muscle Weakness, Back Pain, Neuropathy , Previous Blood Transfusion - Past Surgical History Surgical History: Abdominal Surgery, Appendectomy, Bowel Resection, Cholecystectomy, Hysterectomy, Ortho Surgery, Tonsillectomy, Other Additional Surgical History: Pacemaker, Two Colon Resection's for Colon Cancer, Left Partial Mastectomy for Breast Cancer, Right Chest Wall Port a cath, Left PAU - Family History Family Medical History: Diabetes Mellitus, AR, Hypertension - Social History Does patient currently use any type of tobacco product: No Have you used tobacco products in the last 12 months: No Type of Tobacco Use: None Does any household member use tobacco: No Alcohol Use: None Drug Use: None - Medications Home Medications: Famotidine [Pepcid] 20 mg PO BID 11/18/17 [History Confirmed 11/18/17] Furosemide [LASIX TAB 20 MG *] 20 mg PO BID PRN 11/18/17 [History Confirmed 10/24] - Review of Systems Constitutional: Weakness Eyes: No Symptoms Reported ENT: See HPI, Nose Congestion Respiratory: No Symptoms Reported Cardiovascular: No Symptoms Reported Gastrointestinal: Nausea, Vomiting, Abdominal Pain Genitourinary: Dysuria Musculoskeletal: No Symptoms Reported Skin: No Symptoms Reported Neurological: Weakness - Physical Exam Vital Signs: Temperature 97.8 F Pulse Rate [Left Brachial] 80 Pulse Rate [Right Radial] 67 Respiratory Rate 18 Blood Pressure [Left Calf] 119/66 Blood Pressure [Right Arm] 167/89 Blood Pressure [Left Arm] 145/76 Blood Pressure 155/77 O2 Sat by Pulse Oximetry 92 Oriented: Normal Eyes: Normal Ear: Normal Nose: Other (nasal congestion ) Throat: Normal Respiratory: Clear Throughout Cardiovascular: Normal : Dysuria Auscultation: Bowel Sounds: Increased Palpation: Normal Tenderness: Suprapubic, Moderate Skin: Decreased Turgur Musculoskeletal: Normal Psychiatric: Normal Mood Description: Calm Affect: Normal Speech Pattern: Clear - Assessment/Plan (1) Volume depletion Status: Acute Plan: check cbc and cmp, normal saline at 50ml/hr, procal at 40ml/hr, albumin 25 % iv daily, continue to monitor (2) Abdominal pain Qualifiers: Abdominal location: lower abdomen, unspecified Qualified Code(s): R10.30 - Lower abdominal pain, unspecified Status: Acute Plan: check cbc and cmp, check urinalysis, continue to monitor
--- NOTE | 2017-11-20 21:33 | PCM.PROG ---
Progress Note - Progress Note for Day of Date: 11/19/17 - Subjective Subjective: WAS ADMITTED FOR VOLUME DEPLETION. TODAY, SHE IS ALERT AND ORIENTED, SITTING UP IN BED AT THIS TIME. PATIENTS IS AT BEDSIDE. SHE CONTINUES TO COMPLAIN OF CONGESTION, HEADACHE, SUPRAPUBIC PAIN, AND NAUSEA. SHE DENIES VOMITING SINCE ADMISSION. PATIENT ALSO COMPLAINS OF DIFFICULTY SLEEPING THROUGHOUT THE NIGHT. ON EXAMINATION, HEART IS REGULAR IN RATE AND RHYTHM. BILATERAL LUNGS ARE CLEAR TO AUSCULTATION. ABDOMEN IS ROUND, SOFT, AND NOTED WITH MILD SUPRIPUBIC TENDERNESS. NORMAL BOWEL SOUNDS ARE NOTED IN ALL QUADRANTS. THERE IS NORMAL RANGE OF MOTION NOTED TO ALL EXTREMITIES. HER VITAL SIGNS THIS MORNING ARE 97.9-70-18-94%-133/67. LABS WERE OBTAINED. ABNORMAL LAB VALUES INCLUDE THE FOLLOWING: RBC 3.09, HGB 8.2, HCT 24.7, BUN 30, CREATININE 2.07, GLUCOSE 144, CALCIUM 8.2, AST 14, ALK PHOS 44, TOTAL PROTEIN 5.9, ALBUMIN 3.1. TODAY, WE WILL START KLONOPIN 1MG AT BEDTIME FOR INSOMNIA. WE WILL ALSO START ROCEPHIN 1GM IV DAILY AND FLONASE 2 SPRAYS TO EACH NOSTRIL DAILY. OTHERWISE, WE WILL CONTINUE WITH CURRENT PLAN OF CARE. WE PLAN TO FOLLOW UP WITH AM LABS AND CONTINUE TO MONITOR PATIENT. - Past Medical Family Social History Past Med/Fam/Surg Hx: No changes since H&P Allergies: Allergies ADHESIVE TAPE Allergy (Uncoded 11/09/17 17:13) - Review of Systems ROS: No change since H&P - Vital Signs and I&O's Vital Signs: Temperature 97.8 F Pulse Rate [Left Brachial] 80 Pulse Rate [Right Radial] 67 Respiratory Rate 18 Blood Pressure [Left Calf] 119/66 Blood Pressure [Right Arm] 167/89 Blood Pressure [Left Arm] 145/76 Blood Pressure 155/77 O2 Sat by Pulse Oximetry 92 Intake and Output: Intake & Output 11/18/17 11/19/17 11/20/17 11/21/17 11:59 11:59 11:59 11:59 Intake Total 710 1560 830 Output Total 200 400 Balance 510 1560 430 - Physical Exam Oriented: Normal Eyes: Normal Ear: Normal Nose: Other (nasal congestion ) Throat: Normal Respiratory: Normal Cardiovascular: Normal : Dysuria Auscultation: Bowel Sounds: Increased Palpation: Normal Tenderness: Suprapubic, Moderate Skin: Decreased [place]urgur Musculoskeletal: Normal Psychiatric: Normal Mood Description: Calm Affect: Normal Speech Pattern: Clear - Laboratory and Diagnostics Result Diagrams: 11/20/17 04:48 11/20/17 04:48 Labs: Laboratory WBC 6.5 X10^3/uL (3.6-10.0) 11/20/17 04:48 RBC 3.16 X10^6/uL (3.5-5.4) L 11/20/17 04:48 Hgb 8.2 g/dL (12.0-16.0) L 11/20/17 04:48 Hct 25.7 % (36.0-47.0) L 11/20/17 04:48 MCV 81.4 fL (80.0-100.0) 11/20/17 04:48 MCH 26.0 pg (27.0-34.0) L 11/20/17 04:48 MCHC 31.9 g/dL (33.0-35.0) L 11/20/17 04:48 RDW 18.3 % (11.6-16.5) H 11/20/17 04:48 Plt Count 207 X10^3/uL (150.0-450.0) 11/20/17 04:48 Plt Count Comment Adequate (ADEQUATE) 11/18/17 15:08 MPV 8.7 fL (7.4-11.0) 11/20/17 04:48 Neut % 52.1 % (42.0-75.0) 11/20/17 04:48 Lymph % 35.9 % (21.0-51.0) 11/20/17 04:48 [place] % 9.5 % (0.0-13.0) 11/20/17 04:48 Eos % 2.0 % (0.9-2.9) 11/20/17 04:48 Baso % 0.5 % (0.2-1.0) 11/20/17 04:48 Neut # 3.4 x10^3/uL (2.2-4.8) 11/20/17 04:48 Lymph # 2.3 X10^3/uL (1.3-2.9) 11/20/17 04:48 [place] # 0.6 x10^3/uL (0.3-0.8) 11/20/17 04:48 Eos # 0.1 x10^3/uL (0.0-0.2) 11/20/17 04:48 Baso # 0.0 X10^3/uL (0.0-0.1) 11/20/17 04:48 Absolute Nucleated RBC 0.2 /100WBC 11/20/17 04:48 Plt Morphology Comment Normal (NORMAL) 11/18/17 15:08 RBC Morphology Abnormal (NORMAL) A 11/18/17 15:08 Poikilocytosis Slight A 11/18/17 15:08 Sodium 139 mmol/L (136-145) 11/20/17 04:48 Corrected Sodium 140 mmol/L (136-145) 11/20/17 04:48 Potassium 4.5 mmol/L (3.5-5.1) 11/20/17 04:48 Chloride 106 mmol/L (98-107) 11/20/17 04:48 Carbon Dioxide 29.1 mmol/L (21-32) 11/20/17 04:48 BUN 25 mg/dL (7-18) H 11/20/17 04:48 Creatinine 1.62 mg/dL (0.55-1.02) H 11/20/17 04:48 Est GFR (MDRD) Af Amer 39 (>60) L 11/20/17 04:48 Est GFR (MDRD) Non-Af 32 (>60) L 11/20/17 04:48 Glucose 125 mg/dL (65-99) H 11/20/17 04:48 POC Glucose (mg/dL) 149 mg/dL (65-99) H 11/20/17 20:29 Calcium 8.3 mg/dL (8.5-10.1) L 11/20/17 04:48 Corrected Calcium 8.9 mg/dL (8.5-10.1) 11/20/17 04:48 Total Bilirubin 0.30 mg/dL (0.2-1.0) 11/20/17 04:48 AST 10 Units/L (15-37) L 11/20/17 04:48 ALT 15 Units/L (12-78) 11/20/17 04:48 Alkaline Phosphatase 44 Units/L (46-116) L 11/20/17 04:48 Total Protein 6.1 g/dL (6.4-8.2) L 11/20/17 04:48 Albumin 3.2 g/dL (3.4-5.0) L 11/20/17 04:48 Globulin 2.9 g/dL (2.5-4.5) 11/20/17 04:48 Albumin/Globulin Ratio 1.1 Ratio (1.1-2.1) 11/20/17 04:48 Specimen Type Random urine 11/18/17 15:14 Urine Color Mini (YELLOW) 11/18/17 15:14 Urine Appearance Clear (CLEAR) 11/18/17 15:14 Urine pH 5.0 (5.0 - 8.0) 11/18/17 15:14 Ur Specific [place] 1.015 (1.000-1.030) 11/18/17 15:14 Urine Protein 1+ (NEGATIVE) 11/18/17 15:14 Urine Glucose (UA) Negative (NEGATIVE) 11/18/17 15:14 Urine Ketones Negative (NEGATIVE) 11/18/17 15:14 Urine Occult Blood Negative (NEGATIVE) 11/18/17 15:14 Urine Nitrite Positive (NEGATIVE) 11/18/17 15:14 Urine Bilirubin 1+ (NEGATIVE) 11/18/17 15:14 Urine Urobilinogen 2+ (NORMAL) 11/18/17 15:14 Ur Leukocyte Esterase 1+ (NEGATIVE) 11/18/17 15:14 Urine RBC Rare /HPF (NEGATIVE) 11/18/17 15:14 Urine WBC Rare /HPF (NEGATIVE) 11/18/17 15:14 Ur Squamous Epith Cells Few /HPF (NEGATIVE) 11/18/17 15:14 Amorphous Sediment Trace /HPF (NEGATIVE) 11/18/17 15:14 Urine Bacteria Trace /HPF (NEGATIVE) 11/18/17 15:14 Hyaline Casts Many /LPF (NEGATIVE) 11/18/17 15:14 Ur Culture Indicated? No/not indicated 11/18/17 15:14 - Plan (1) Volume depletion Status: Acute Plan: check cbc and cmp, normal saline at 50ml/hr, procal at 40ml/hr, albumin 25 % iv daily, continue to monitor (2) Abdominal pain Status: Acute Qualifiers: Abdominal location: lower abdomen, unspecified Qualified Code(s): R10.30 - Lower abdominal pain, unspecified Plan: CONTINUE TO MONITOR (3) Sinusitis Status: Acute Qualifiers: Sinusitis location: unspecified location Chronicity: acute Recurrence: not specified as recurrent Qualified Code(s): J01.90 - Acute sinusitis, unspecified Plan: flonase 2 sprays to each nostril daily, rocephin 1gm iv daily, continue to monitor
[2017-11-21] MEDS: SINEMET (PLAIN) 25/250 MG PO SCH ×3 (06:01→21:31)
[2017-11-21] MEDS: NEURONTIN CAP 300 MG PO SCH ×3 (06:01→21:31)
[2017-11-21] MEDS: AMARYL TAB 4 MG PO SCH (06:02)
[2017-11-21 06:20] LABS: BASOPHILS % (AUTO) 0.6 % (0.2-1.0); EOSINOPHILS # (AUTO) 0.1 x10^3/uL (0.0-0.2); EOSINOPHILS % (AUTO) 2.3 % (0.9-2.9); LYMPHOCYTES # (AUTO) 1.7 X10^3/uL (1.3-2.9); LYMPHOCYTES % (AUTO) 28.6 % (21.0-51.0); MEAN CORPUSCULAR VOLUME 81.2 fL (80.0-100.0); MEAN PLATELET VOLUME 8.6 fL (7.4-11.0); MONOCYTES # (AUTO) 0.6 x10^3/uL (0.3-0.8); MONOCYTES % (AUTO) 9.9 % (0.0-13.0); NEUTROPHILS # (AUTO) 3.5 x10^3/uL (2.2-4.8); NEUTROPHILS % (AUTO) 58.6 % (42.0-75.0); PLATELET COUNT 197 X10^3/uL (150.0-450.0); RED BLOOD COUNT 3.08 X10^6/uL (3.5-5.4); RED CELL DISTRIBUTION WIDTH 18.9 % (11.6-16.5)
[2017-11-21 06:27] LABS: ALBUMIN 3.2 g/dL (3.4-5.0); CALCIUM 8.4 mg/dL (8.5-10.1); CARBON DIOXIDE 26.7 mmol/L (21-32); CREATININE 1.36 mg/dL (0.55-1.02); TOTAL PROTEIN 5.9 g/dL (6.4-8.2)
[2017-11-21] MEDS: NS 1000 ML 1,000 ML IV SCH ×3 (06:34→21:32)
[2017-11-21] MEDS ORDERED: NORVASC TAB 2.5 MG ONE (08:35)
[2017-11-21] MEDS: ZESTRIL TAB 10 MG PO SCH (09:05)
[2017-11-21] MEDS: COLACE CAP 100 MG PO SCH ×2 (09:05→20:35)
[2017-11-21] MEDS: ELIQUIS PO SCH ×2 (09:05→20:36)
[2017-11-21] MEDS: BENTYL CAP 10 MG PO SCH ×4 (09:05→20:36)
[2017-11-21] MEDS: SYNTHROID 100 mcg TAB PO SCH (09:06)
[2017-11-21] MEDS: PROTONIX TAB 40 MG PO SCH ×2 (09:06→20:35)
[2017-11-21] MEDS: PEPCID TAB 20 MG PO SCH ×2 (09:06→20:35)
[2017-11-21] MEDS: MICRO K EXTEN CAP 10 MEQ PO SCH (09:06)
[2017-11-21] MEDS: COREG TAB 6.25 MG PO SCH (09:06)
[2017-11-21] MEDS: CELEXA PO SCH (09:06)
[2017-11-21] MEDS: NORVASC TAB 2.5 MG PO SCH (09:06)
[2017-11-21] MEDS: CORDARONE TAB 200 MG PO SCH ×2 (09:09→20:41)
[2017-11-21] MEDS: ROCEPHIN VIAL 1 GM 1 GM in NS 100 ML IV 100 ML IV SCH (09:12)
[2017-11-21] MEDS: CIPRO IV 400 MG PREMIX* 400 MG/200 ML IV.SOLN. IV SCH ×2 (09:12→20:33)
[2017-11-21] MEDS: ALBUMIN HUMAN 25%- 100ML 100 ML IV SCH (09:12)
[2017-11-21] MEDS: FLONASE NASAL SPRAY ENOSTRIL SCH (09:17)
[2017-11-21] MEDS: MIRALAX POWDER (1 DOSE 17GM) PO SCH ×2 (11:15→20:34)
[2017-11-21] MEDS: MILK OF MAGNESIA PO SCH ×4 (11:15→20:34)
--- NOTE | 2017-11-21 11:58 | PCM.PROG ---
Progress Note - Progress Note for Day of Date: 11/20/17 - Subjective Subjective: WAS ADMITTED FOR VOLUME DEPLETION. TODAY, SHE IS ALERT AND ORIENTED, SITTING UP IN BED AT THIS TIME. PATIENTS IS AT BEDSIDE. TODAY, SHE CONTINUES TO COMPLAIN OF CONGESTION, NAUSEA, AND ABDOMINAL PAIN. HER ABDOMINAL PAIN TODAY HAS SHIFTED FROM THE SUPRAPUBIC AREA TO THE RLQ. PATIENT DOES HAVE A KNOWN HISTORY OF DIVERTICULOSIS. SHE REPORTS THAT SHE SLEPT BETTER THROUGHOUT THE NIGHT SINCE STARTING THE KLONOPIN. ON EXAMINATION, HEART IS REGULAR IN RATE AND RHYTHM. BILATERAL LUNGS ARE CLEAR TO AUSCULTATION. ABDOMEN IS ROUND, SOFT, AND NOTED WITH MILD RLQ PAIN. NORMAL BOWEL SOUNDS ARE NOTED IN ALL QUADRANTS. THERE IS NORMAL RANGE OF MOTION NOTED TO ALL EXTREMITIES. HER VITAL SIGNS THIS MORNING ARE 98.5-70-18-94%-156/73. LABS WERE OBTAINED. ABNORMAL LAB VALUES INCLUDE THE FOLLOWING: RBC 3.16, HGB 8.2, HCT 25.7, BUN 25, CREATININE 1.62, GLUCOSE 125, CALCIUM 8.3, AST 10, ALK PHOS 44, TOTAL PROTEIN 6.1, ALBUMIN 3.2. TODAY, WE WILL ADD CIPRO 400MG IV Q12H AND BENTYL 20MG PO QID. OTHERWISE, WE WILL CONTINUE WITH CURRENT PLAN OF CARE. WE PLAN TO FOLLOW UP WITH AM LABS AND CONTINUE TO MONITOR PATIENT. - Past Medical Family Social History Past Med/Fam/Surg Hx: No changes since H&P Allergies: Allergies ADHESIVE TAPE Allergy (Uncoded 11/09/17 17:13) - Review of Systems ROS: No change since H&P - Vital Signs and I&O's Vital Signs: Temperature 98.4 F Pulse Rate [Left Brachial] 80 Pulse Rate [Right Radial] 67 Respiratory Rate 18 Blood Pressure [Left Calf] 144/72 Blood Pressure [Right Arm] 170/80 Blood Pressure [Left Arm] 145/76 Blood Pressure 155/77 O2 Sat by Pulse Oximetry 95 Intake and Output: Intake & Output 11/18/17 11/19/17 11/20/17 11/21/17 11:59 11:59 11:59 11:59 Intake Total 710 1560 1910 Output Total 200 400 Balance 510 1560 1510 - Physical Exam Oriented: Normal Eyes: Normal Ear: Normal Nose: Other (nasal congestion ) Throat: Normal Respiratory: Normal Cardiovascular: Normal : Dysuria Auscultation: Bowel Sounds: Increased Palpation: Normal Tenderness: RLQ, Mild Skin: Decreased Turgur Musculoskeletal: Normal Psychiatric: Normal Mood Description: Calm Affect: Normal Speech Pattern: Clear - Laboratory and Diagnostics Result Diagrams: 11/21/17 05:08 11/21/17 05:08 Labs: Laboratory WBC 6.0 X10^3/uL (3.6-10.0) 11/21/17 05:08 RBC 3.08 X10^6/uL (3.5-5.4) L 11/21/17 05:08 Hgb 8.0 g/dL (12.0-16.0) L 11/21/17 05:08 Hct 25.0 % (36.0-47.0) L 11/21/17 05:08 MCV 81.2 fL (80.0-100.0) 11/21/17 05:08 MCH 26.0 pg (27.0-34.0) L 11/21/17 05:08 MCHC 32.0 g/dL (33.0-35.0) L 11/21/17 05:08 RDW 18.9 % (11.6-16.5) H 11/21/17 05:08 Plt Count 197 X10^3/uL (150.0-450.0) 11/21/17 05:08 Plt Count Comment Adequate (ADEQUATE) 11/18/17 15:08 MPV 8.6 fL (7.4-11.0) 11/21/17 05:08 Neut % 58.6 % (42.0-75.0) 11/21/17 05:08 Lymph % 28.6 % (21.0-51.0) 11/21/17 05:08 [place] % 9.9 % (0.0-13.0) 11/21/17 05:08 Eos % 2.3 % (0.9-2.9) 11/21/17 05:08 Baso % 0.6 % (0.2-1.0) 11/21/17 05:08 Neut # 3.5 x10^3/uL (2.2-4.8) 11/21/17 05:08 Lymph # 1.7 X10^3/uL (1.3-2.9) 11/21/17 05:08 [place] # 0.6 x10^3/uL (0.3-0.8) 11/21/17 05:08 Eos # 0.1 x10^3/uL (0.0-0.2) 11/21/17 05:08 Baso # 0.0 X10^3/uL (0.0-0.1) 11/21/17 05:08 Absolute Nucleated RBC 0.3 /100WBC 11/21/17 05:08 Plt Morphology Comment Normal (NORMAL) 11/18/17 15:08 RBC Morphology Abnormal (NORMAL) A 11/18/17 15:08 Poikilocytosis Slight A 11/18/17 15:08 Sodium 137 mmol/L (136-145) 11/21/17 05:08 Corrected Sodium 137 mmol/L (136-145) 11/21/17 05:08 Potassium 4.7 mmol/L (3.5-5.1) 11/21/17 05:08 Chloride 104 mmol/L (98-107) 11/21/17 05:08 Carbon Dioxide 26.7 mmol/L (21-32) 11/21/17 05:08 BUN 19 mg/dL (7-18) H 11/21/17 05:08 Creatinine 1.36 mg/dL (0.55-1.02) H 11/21/17 05:08 Est GFR (MDRD) Af Amer 48 (>60) L 11/21/17 05:08 Est GFR (MDRD) Non-Af 39 (>60) L 11/21/17 05:08 Glucose 112 mg/dL (65-99) H 11/21/17 05:08 POC Glucose (mg/dL) 154 mg/dL (65-99) H 11/21/17 11:15 Calcium 8.4 mg/dL (8.5-10.1) L 11/21/17 05:08 Corrected Calcium 9.0 mg/dL (8.5-10.1) 11/21/17 05:08 Total Bilirubin 0.30 mg/dL (0.2-1.0) 11/21/17 05:08 AST 13 Units/L (15-37) L 11/21/17 05:08 ALT 8 Units/L (12-78) L 11/21/17 05:08 Alkaline Phosphatase 44 Units/L (46-116) L 11/21/17 05:08 Total Protein 5.9 g/dL (6.4-8.2) L 11/21/17 05:08 Albumin 3.2 g/dL (3.4-5.0) L 11/21/17 05:08 Globulin 2.7 g/dL (2.5-4.5) 11/21/17 05:08 Albumin/Globulin Ratio 1.2 Ratio (1.1-2.1) 11/21/17 05:08 Specimen Type Random urine 11/18/17 15:14 Urine Color Mini (YELLOW) 11/18/17 15:14 Urine Appearance Clear (CLEAR) 11/18/17 15:14 Urine pH 5.0 (5.0 - 8.0) 11/18/17 15:14 Ur Specific [place] 1.015 (1.000-1.030) 11/18/17 15:14 Urine Protein 1+ (NEGATIVE) 11/18/17 15:14 Urine Glucose (UA) Negative (NEGATIVE) 11/18/17 15:14 Urine Ketones Negative (NEGATIVE) 11/18/17 15:14 Urine Occult Blood Negative (NEGATIVE) 11/18/17 15:14 Urine Nitrite Positive (NEGATIVE) 11/18/17 15:14 Urine Bilirubin 1+ (NEGATIVE) 11/18/17 15:14 Urine Urobilinogen 2+ (NORMAL) 11/18/17 15:14 Ur Leukocyte Esterase 1+ (NEGATIVE) 11/18/17 15:14 Urine RBC Rare /HPF (NEGATIVE) 11/18/17 15:14 Urine WBC Rare /HPF (NEGATIVE) 11/18/17 15:14 Ur Squamous Epith Cells Few /HPF (NEGATIVE) 11/18/17 15:14 Amorphous Sediment Trace /HPF (NEGATIVE) 11/18/17 15:14 Urine Bacteria Trace /HPF (NEGATIVE) 11/18/17 15:14 Hyaline Casts Many /LPF (NEGATIVE) 11/18/17 15:14 Ur Culture Indicated? No/not indicated 11/18/17 15:14 - Plan (1) Volume depletion Status: Acute Plan: check cbc and cmp, normal saline at 50ml/hr, procal at 40ml/hr, albumin 25 % iv daily, continue to monitor (2) Abdominal pain Status: Acute Qualifiers: Abdominal location: lower abdomen, unspecified Qualified Code(s): R10.30 - Lower abdominal pain, unspecified Plan: BENTYL 20MG PO QID, CIPRO 400MG IV Q12H, CONTINUE TO MONITOR (3) Sinusitis Status: Acute Qualifiers: Sinusitis location: unspecified location Chronicity: acute Recurrence: not specified as recurrent Qualified Code(s): J01.90 - Acute sinusitis, unspecified Plan: flonase 2 sprays to each nostril daily, rocephin 1gm iv daily, continue to monitor
[2017-11-21] MEDS: VITAMIN D3 PO SCH (12:13)
[2017-11-21] MEDS: NORCO 7.5/325 MG TAB PO PRN (12:20)
[2017-11-21] MEDS: SNACK - Diabetic Appropriate PO SCH ×2 (14:42→21:30)
[2017-11-21] MEDS: LIPITOR TAB 20 MG PO SCH (17:28)
[2017-11-21] MEDS: PROCALAMINE 3 % 1,000 ML IV SCH (19:27)
[2017-11-21] MEDS: ARICEPT TAB 10 MG PO SCH (20:37)
[2017-11-21] MEDS: KLONOPIN TAB 1 MG PO SCH (21:30)
--- NOTE | 2017-11-21 21:46 | PCM.PROG ---
Progress Note - Progress Note for Day of Date: 11/21/17 - Subjective Subjective: WAS ADMITTED FOR VOLUME DEPLETION. TODAY, SHE IS ALERT AND ORIENTED, SITTING UP IN BED AT THIS TIME. PATIENTS IS AT BEDSIDE. TODAY, SHE CONTINUES TO COMPLAIN OF ABDOMINAL PAIN. PATIENT REPORTS HAVING TWO SMALL BOWEL MOVEMENTS YESTERDAY, BUT NOT ENOUGH TO MENTION. ON EXAMINATION, HEART IS REGULAR IN RATE AND RHYTHM. BILATERAL LUNGS ARE CLEAR TO AUSCULTATION. ABDOMEN IS ROUND, SOFT, AND NOTED WITH MILD DIFFUSE TENDERNESS. HYPOACTIVE BOWEL SOUNDS ARE NOTED IN ALL QUADRANTS. THERE IS NORMAL RANGE OF MOTION NOTED TO ALL EXTREMITIES. HER VITAL SIGNS THIS MORNING ARE 98.1-61-18-94%-171/84. LABS WERE OBTAINED. ABNORMAL LAB VALUES INCLUDE THE FOLLOWING: RBC 3.08, HGB 8.0 , HCT 25.0, BUN 19, CREATININE 1.36, GLUCOSE 112, CALCIUM 8.4, AST 13, ALT 8, ALK PHOS 44, TOTAL PROTEIN 5.9, ALBUMIN 3.2. TODAY, WE WILL ADD MIRALAX 17GM PO DAILY AND MILK OF MAGNESIA 10ML PO QID TO HER PLAN OF CARE. WE PLAN TO FOLLOW UP WITH AM LABS AND CONTINUE TO MONITOR PATIENT. - Past Medical Family Social History Past Med/Fam/Surg Hx: No changes since H&P Allergies: Allergies ADHESIVE TAPE Allergy (Uncoded 11/09/17 17:13) - Review of Systems ROS: No change since H&P - Vital Signs and I&O's Vital Signs: Temperature 97.5 F Pulse Rate [Left Brachial] 76 Pulse Rate [Right Radial] 67 Respiratory Rate 20 Blood Pressure [Left Calf] 144/72 Blood Pressure [Right Arm] 170/80 Blood Pressure [Left Arm] 186/87 Blood Pressure 155/77 O2 Sat by Pulse Oximetry 96 Intake and Output: Intake & Output 11/19/17 11/20/17 11/21/17 11/22/17 11:59 11:59 11:59 11:59 Intake Total 710 1560 1910 1300 Output Total 200 400 Balance 510 1560 1510 1300 - Physical Exam Oriented: Normal Eyes: Normal Ear: Normal Nose: Other (nasal congestion ) Throat: Normal Respiratory: Normal Cardiovascular: Normal : Dysuria Auscultation: Bowel Sounds: Increased Palpation: Normal Tenderness: Diffuse, Mild Skin: Decreased Turgur Musculoskeletal: Normal Psychiatric: Normal Mood Description: Calm Affect: Normal Speech Pattern: Clear, Appropriate - Laboratory and Diagnostics Result Diagrams: 11/21/17 05:08 11/21/17 05:08 Labs: Laboratory WBC 6.0 X10^3/uL (3.6-10.0) 11/21/17 05:08 RBC 3.08 X10^6/uL (3.5-5.4) L 11/21/17 05:08 Hgb 8.0 g/dL (12.0-16.0) L 11/21/17 05:08 Hct 25.0 % (36.0-47.0) L 11/21/17 05:08 MCV 81.2 fL (80.0-100.0) 11/21/17 05:08 MCH 26.0 pg (27.0-34.0) L 11/21/17 05:08 MCHC 32.0 g/dL (33.0-35.0) L 11/21/17 05:08 RDW 18.9 % (11.6-16.5) H 11/21/17 05:08 Plt Count 197 X10^3/uL (150.0-450.0) 11/21/17 05:08 Plt Count Comment Adequate (ADEQUATE) 11/18/17 15:08 MPV 8.6 fL (7.4-11.0) 11/21/17 05:08 Neut % 58.6 % (42.0-75.0) 11/21/17 05:08 Lymph % 28.6 % (21.0-51.0) 11/21/17 05:08 [place] % 9.9 % (0.0-13.0) 11/21/17 05:08 Eos % 2.3 % (0.9-2.9) 11/21/17 05:08 Baso % 0.6 % (0.2-1.0) 11/21/17 05:08 Neut # 3.5 x10^3/uL (2.2-4.8) 11/21/17 05:08 Lymph # 1.7 X10^3/uL (1.3-2.9) 11/21/17 05:08 [place] # 0.6 x10^3/uL (0.3-0.8) 11/21/17 05:08 Eos # 0.1 x10^3/uL (0.0-0.2) 11/21/17 05:08 Baso # 0.0 X10^3/uL (0.0-0.1) 11/21/17 05:08 Absolute Nucleated RBC 0.3 /100WBC 11/21/17 05:08 Plt Morphology Comment Normal (NORMAL) 11/18/17 15:08 RBC Morphology Abnormal (NORMAL) A 11/18/17 15:08 Poikilocytosis Slight A 11/18/17 15:08 Sodium 137 mmol/L (136-145) 11/21/17 05:08 Corrected Sodium 137 mmol/L (136-145) 11/21/17 05:08 Potassium 4.7 mmol/L (3.5-5.1) 11/21/17 05:08 Chloride 104 mmol/L (98-107) 11/21/17 05:08 Carbon Dioxide 26.7 mmol/L (21-32) 11/21/17 05:08 BUN 19 mg/dL (7-18) H 11/21/17 05:08 Creatinine 1.36 mg/dL (0.55-1.02) H 11/21/17 05:08 Est GFR (MDRD) Af Amer 48 (>60) L 11/21/17 05:08 Est GFR (MDRD) Non-Af 39 (>60) L 11/21/17 05:08 Glucose 112 mg/dL (65-99) H 11/21/17 05:08 POC Glucose (mg/dL) 142 mg/dL (65-99) H 11/21/17 19:39 Calcium 8.4 mg/dL (8.5-10.1) L 11/21/17 05:08 Corrected Calcium 9.0 mg/dL (8.5-10.1) 11/21/17 05:08 Total Bilirubin 0.30 mg/dL (0.2-1.0) 11/21/17 05:08 AST 13 Units/L (15-37) L 11/21/17 05:08 ALT 8 Units/L (12-78) L 11/21/17 05:08 Alkaline Phosphatase 44 Units/L (46-116) L 11/21/17 05:08 Total Protein 5.9 g/dL (6.4-8.2) L 11/21/17 05:08 Albumin 3.2 g/dL (3.4-5.0) L 11/21/17 05:08 Globulin 2.7 g/dL (2.5-4.5) 11/21/17 05:08 Albumin/Globulin Ratio 1.2 Ratio (1.1-2.1) 11/21/17 05:08 Specimen Type Random urine 11/18/17 15:14 Urine Color Mini (YELLOW) 11/18/17 15:14 Urine Appearance Clear (CLEAR) 11/18/17 15:14 Urine pH 5.0 (5.0 - 8.0) 11/18/17 15:14 Ur Specific [place] 1.015 (1.000-1.030) 11/18/17 15:14 Urine Protein 1+ (NEGATIVE) 11/18/17 15:14 Urine Glucose (UA) Negative (NEGATIVE) 11/18/17 15:14 Urine Ketones Negative (NEGATIVE) 11/18/17 15:14 Urine Occult Blood Negative (NEGATIVE) 11/18/17 15:14 Urine Nitrite Positive (NEGATIVE) 11/18/17 15:14 Urine Bilirubin 1+ (NEGATIVE) 11/18/17 15:14 Urine Urobilinogen 2+ (NORMAL) 11/18/17 15:14 Ur Leukocyte Esterase 1+ (NEGATIVE) 11/18/17 15:14 Urine RBC Rare /HPF (NEGATIVE) 11/18/17 15:14 Urine WBC Rare /HPF (NEGATIVE) 11/18/17 15:14 Ur Squamous Epith Cells Few /HPF (NEGATIVE) 11/18/17 15:14 Amorphous Sediment Trace /HPF (NEGATIVE) 11/18/17 15:14 Urine Bacteria Trace /HPF (NEGATIVE) 11/18/17 15:14 Hyaline Casts Many /LPF (NEGATIVE) 11/18/17 15:14 Ur Culture Indicated? No/not indicated 11/18/17 15:14 - Plan (1) Volume depletion Status: Acute Plan: check cbc and cmp, normal saline at 50ml/hr, procal at 40ml/hr, albumin 25 % iv daily, continue to monitor (2) Abdominal pain Status: Acute Qualifiers: Abdominal location: lower abdomen, unspecified Qualified Code(s): R10.30 - Lower abdominal pain, unspecified Plan: BENTYL 20MG PO QID, CIPRO 400MG IV Q12H, MIRALAX DAILY, MILK OF MAGNESIA 10ML PO QID, COLACE 100MG BID, CONTINUE TO MONITOR (3) Sinusitis Status: Acute Qualifiers: Sinusitis location: unspecified location Chronicity: acute Recurrence: not specified as recurrent Qualified Code(s): J01.90 - Acute sinusitis, unspecified Plan: flonase 2 sprays to each nostril daily, rocephin 1gm iv daily, continue to monitor
[2017-11-22] MEDS: NEURONTIN CAP 300 MG PO SCH ×4 (05:41→21:27)
[2017-11-22] MEDS: SINEMET (PLAIN) 25/250 MG PO SCH ×4 (05:42→21:28)
[2017-11-22] MEDS: AMARYL TAB 4 MG PO SCH (06:22)
[2017-11-22 06:29] LABS: BASOPHILS % (AUTO) 0.5 % (0.2-1.0); EOSINOPHILS # (AUTO) 0.1 x10^3/uL (0.0-0.2); EOSINOPHILS % (AUTO) 1.7 % (0.9-2.9); HEMATOCRIT 24.5 % (36.0-47.0); HEMOGLOBIN 7.9 g/dL (12.0-16.0); LYMPHOCYTES # (AUTO) 1.9 X10^3/uL (1.3-2.9); LYMPHOCYTES % (AUTO) 30.6 % (21.0-51.0); MEAN CORPUSCULAR HGB CONC 32.1 g/dL (33.0-35.0); MEAN PLATELET VOLUME 8.6 fL (7.4-11.0); MONOCYTES # (AUTO) 0.6 x10^3/uL (0.3-0.8); MONOCYTES % (AUTO) 9.9 % (0.0-13.0); NEUTROPHILS # (AUTO) 3.5 x10^3/uL (2.2-4.8); NEUTROPHILS % (AUTO) 57.3 % (42.0-75.0); PLATELET COUNT 178 X10^3/uL (150.0-450.0); RED BLOOD COUNT 3.02 X10^6/uL (3.5-5.4); RED CELL DISTRIBUTION WIDTH 18.3 % (11.6-16.5); WHITE BLOOD COUNT 6.1 X10^3/uL (3.6-10.0)
[2017-11-22 06:41] LABS: ALANINE AMINOTRANSFERASE 13 Units/L (12-78); ALBUMIN 3.3 g/dL (3.4-5.0); ALKALINE PHOSPHATASE 40 Units/L (46-116); ASPARTATE AMINO TRANSFERASE 14 Units/L (15-37); BLOOD UREA NITROGEN 18 mg/dL (7-18); CALCIUM 8.5 mg/dL (8.5-10.1); CARBON DIOXIDE 27.8 mmol/L (21-32); CHLORIDE 105 mmol/L (98-107); COR CA(FOR HYPOALB) 9.1 mg/dL (8.5-10.1); CREATININE 1.48 mg/dL (0.55-1.02); SODIUM 138 mmol/L (136-145); eGFR BLACK RACES 43 (>60); eGFR NON BLACK RACES 36 (>60)
[2017-11-22 06:48] LABS: HYPOCHROMASIA SLIGHT; PLATELET MORPHOLOGY COMMENT NORMAL (NORMAL)
[2017-11-22] MEDS: TYLENOL 325 MG TAB PO PRN (07:22)
[2017-11-22] MEDS ORDERED: NORVASC TAB 2.5 MG ONE (08:51)
[2017-11-22] MEDS: COREG TAB 6.25 MG PO SCH (09:00)
[2017-11-22] MEDS: MICRO K EXTEN CAP 10 MEQ PO SCH (09:00)
[2017-11-22] MEDS: PROTONIX TAB 40 MG PO SCH ×2 (09:00→20:25)
[2017-11-22] MEDS: ZOFRAN TAB 4 MG SL PRN (09:00)
[2017-11-22] MEDS: SYNTHROID 100 mcg TAB PO SCH (09:01)
[2017-11-22] MEDS: BENTYL CAP 10 MG PO SCH ×4 (09:01→20:30)
[2017-11-22] MEDS: CELEXA PO SCH (09:01)
[2017-11-22] MEDS: ELIQUIS PO SCH ×2 (09:01→20:28)
[2017-11-22] MEDS: NORVASC TAB 2.5 MG PO SCH (09:01)
[2017-11-22] MEDS: CORDARONE TAB 200 MG PO SCH ×2 (09:01→20:27)
[2017-11-22] MEDS: COLACE CAP 100 MG PO SCH ×2 (09:01→20:25)
[2017-11-22] MEDS: PEPCID TAB 20 MG PO SCH ×2 (09:01→20:29)
[2017-11-22] MEDS: ZESTRIL TAB 10 MG PO SCH (09:01)
[2017-11-22] MEDS: MILK OF MAGNESIA PO SCH ×4 (09:02→20:37)
[2017-11-22] MEDS: ALBUMIN HUMAN 25%- 100ML 100 ML IV SCH (09:02)
[2017-11-22] MEDS: FLONASE NASAL SPRAY ENOSTRIL SCH (09:17)
[2017-11-22] MEDS: CIPRO IV 400 MG PREMIX* 400 MG/200 ML IV.SOLN. IV SCH (09:59)
[2017-11-22] MEDS: ROCEPHIN VIAL 1 GM 1 GM in NS 100 ML IV 100 ML IV SCH (09:59)
[2017-11-22] MEDS: NS 1000 ML 1,000 ML IV SCH ×2 (10:06→22:28)
--- NOTE | 2017-11-22 10:40 | PCM.PROG ---
Progress Note - Progress Note for Day of Date: 11/22/17 - Subjective Subjective: WAS ADMITTED FOR VOLUME DEPLETION. TODAY, SHE IS ALERT AND ORIENTED, LYING IN BED ON MORNING ROUNDS. PATIENTS IS AT BEDSIDE. TODAY, SHE CONTINUES TO WITH NAUSEA AND DIFFUSE ABDOMINAL PAIN. SHE REPORTS HAVING ONE BOWEL MOVEMENT YESTERDAY. ON EXAMINATION, HEART IS REGULAR IN RATE AND RHYTHM. BILATERAL LUNGS ARE CLEAR TO AUSCULTATION. ABDOMEN IS ROUND, SOFT, AND NOTED WITH MILD DIFFUSE TENDERNESS. HYPOACTIVE BOWEL SOUNDS ARE NOTED IN ALL QUADRANTS. THERE IS NORMAL RANGE OF MOTION NOTED TO ALL EXTREMITIES. HER VITAL SIGNS THIS MORNING ARE 98.7-79-16-95%-168/77. LABS WERE OBTAINED. ABNORMAL LAB VALUES INCLUDE THE FOLLOWING: RBC 3.02, HGB 7.9, HCT 24.5, CREATININE 1.48, GLUCOSE 104, AST 14, ALK PHOS 40, TOTAL PROTEIN 6.0, ALBUMIN 3.3. TODAY, WE WILL OBTAIN AN ACUTE ABDOMINAL SERIES. WE WILL DISCONTINUE THE CIPRO AND ROCEPHIN, THIS MAY BE WHAT IS CAUSING HER NAUSEA. WE WILL ALSO CHECK AN ANEMIA PANEL. OTHERWISE, WE PLAN TO FOLLOW UP WITH AM LABS AND CONTINUE TO MONITOR PATIENT. - Past Medical Family Social History Past Med/Fam/Surg Hx: No changes since H&P Allergies: Allergies ADHESIVE TAPE Allergy (Uncoded 11/09/17 17:13) - Review of Systems ROS: No change since H&P - Vital Signs and I&O's Vital Signs: Temperature 98.7 F Pulse Rate [Left Brachial] 79 Pulse Rate [Right Radial] 67 Respiratory Rate 16 Blood Pressure [Left Calf] 168/77 Blood Pressure [Right Arm] 172/79 Blood Pressure [Left Arm] 186/87 Blood Pressure 155/77 O2 Sat by Pulse Oximetry 95 Intake and Output: Intake & Output 11/19/17 11/20/17 11/21/17 11/22/17 11:59 11:59 11:59 11:59 Intake Total 710 1560 1910 3250 Output Total 200 400 Balance 510 1560 1510 3250 - Physical Exam Oriented: Normal Eyes: Normal Ear: Normal Nose: Other (nasal congestion ) Throat: Normal Respiratory: Normal Cardiovascular: Normal : Dysuria Auscultation: Bowel Sounds: Increased Palpation: Normal Tenderness: Diffuse, Mild Skin: Decreased Turgur Musculoskeletal: Normal Psychiatric: Normal Mood Description: Calm Affect: Normal Speech Pattern: Clear, Appropriate - Laboratory and Diagnostics Result Diagrams: 11/22/17 04:50 11/22/17 04:50 Labs: Laboratory WBC 6.1 X10^3/uL (3.6-10.0) 11/22/17 04:50 RBC 3.02 X10^6/uL (3.5-5.4) L 11/22/17 04:50 Hgb 7.9 g/dL (12.0-16.0) L 11/22/17 04:50 Hct 24.5 % (36.0-47.0) L 11/22/17 04:50 MCV 81.0 fL (80.0-100.0) 11/22/17 04:50 MCH 26.0 pg (27.0-34.0) L 11/22/17 04:50 MCHC 32.1 g/dL (33.0-35.0) L 11/22/17 04:50 RDW 18.3 % (11.6-16.5) H 11/22/17 04:50 Plt Count 178 X10^3/uL (150.0-450.0) 11/22/17 04:50 Plt Count Comment Adequate (ADEQUATE) 11/22/17 04:50 MPV 8.6 fL (7.4-11.0) 11/22/17 04:50 Neut % 57.3 % (42.0-75.0) 11/22/17 04:50 Lymph % 30.6 % (21.0-51.0) 11/22/17 04:50 [place] % 9.9 % (0.0-13.0) 11/22/17 04:50 Eos % 1.7 % (0.9-2.9) 11/22/17 04:50 Baso % 0.5 % (0.2-1.0) 11/22/17 04:50 Neut # 3.5 x10^3/uL (2.2-4.8) 11/22/17 04:50 Lymph # 1.9 X10^3/uL (1.3-2.9) 11/22/17 04:50 [place] # 0.6 x10^3/uL (0.3-0.8) 11/22/17 04:50 Eos # 0.1 x10^3/uL (0.0-0.2) 11/22/17 04:50 Baso # 0.0 X10^3/uL (0.0-0.1) 11/22/17 04:50 Absolute Nucleated RBC 0.1 /100WBC 11/22/17 04:50 Plt Morphology Comment Normal (NORMAL) 11/22/17 04:50 RBC Morphology Abnormal (NORMAL) A 11/22/17 04:50 Hypochromasia Slight A 11/22/17 04:50 Poikilocytosis Slight A 11/18/17 15:08 Sodium 138 mmol/L (136-145) 11/22/17 04:50 Corrected Sodium TNP 11/22/17 04:50 Potassium 4.5 mmol/L (3.5-5.1) 11/22/17 04:50 Chloride 105 mmol/L (98-107) 11/22/17 04:50 Carbon Dioxide 27.8 mmol/L (21-32) 11/22/17 04:50 BUN 18 mg/dL (7-18) 11/22/17 04:50 Creatinine 1.48 mg/dL (0.55-1.02) H 11/22/17 04:50 Est GFR (MDRD) Af Amer 43 (>60) L 11/22/17 04:50 Est GFR (MDRD) Non-Af 36 (>60) L 11/22/17 04:50 Glucose 104 mg/dL (65-99) H 11/22/17 04:50 POC Glucose (mg/dL) 119 mg/dL (65-99) H 11/22/17 06:20 Calcium 8.5 mg/dL (8.5-10.1) 11/22/17 04:50 Corrected Calcium 9.1 mg/dL (8.5-10.1) 11/22/17 04:50 Iron 27 ug/dL (50-175) L 11/22/17 04:50 Transferrin 208 mg/dL (202-364) 11/22/17 04:50 Ferritin 11 ng/mL (8-252) 11/22/17 04:50 Total Bilirubin 0.30 mg/dL (0.2-1.0) 11/22/17 04:50 AST 14 Units/L (15-37) L 11/22/17 04:50 ALT 13 Units/L (12-78) 11/22/17 04:50 Alkaline Phosphatase 40 Units/L (46-116) L 11/22/17 04:50 Total Protein 6.0 g/dL (6.4-8.2) L 11/22/17 04:50 Albumin 3.3 g/dL (3.4-5.0) L 11/22/17 04:50 Globulin 2.7 g/dL (2.5-4.5) 11/22/17 04:50 Albumin/Globulin Ratio 1.2 Ratio (1.1-2.1) 11/22/17 04:50 Vitamin B12 873 pg/mL (193-986) 11/22/17 04:50 Folate 8.0 ng/mL (>8.6) L 11/22/17 04:50 Specimen Type Random urine 11/18/17 15:14 Urine Color Mini (YELLOW) 11/18/17 15:14 Urine Appearance Clear (CLEAR) 11/18/17 15:14 Urine pH 5.0 (5.0 - 8.0) 11/18/17 15:14 Ur Specific [place] 1.015 (1.000-1.030) 11/18/17 15:14 Urine Protein 1+ (NEGATIVE) 11/18/17 15:14 Urine Glucose (UA) Negative (NEGATIVE) 11/18/17 15:14 Urine Ketones Negative (NEGATIVE) 11/18/17 15:14 Urine Occult Blood Negative (NEGATIVE) 11/18/17 15:14 Urine Nitrite Positive (NEGATIVE) 11/18/17 15:14 Urine Bilirubin 1+ (NEGATIVE) 11/18/17 15:14 Urine Urobilinogen 2+ (NORMAL) 11/18/17 15:14 Ur Leukocyte Esterase 1+ (NEGATIVE) 11/18/17 15:14 Urine RBC Rare /HPF (NEGATIVE) 11/18/17 15:14 Urine WBC Rare /HPF (NEGATIVE) 11/18/17 15:14 Ur Squamous Epith Cells Few /HPF (NEGATIVE) 11/18/17 15:14 Amorphous Sediment Trace /HPF (NEGATIVE) 11/18/17 15:14 Urine Bacteria Trace /HPF (NEGATIVE) 11/18/17 15:14 Hyaline Casts Many /LPF (NEGATIVE) 11/18/17 15:14 Ur Culture Indicated? No/not indicated 11/18/17 15:14 - Plan (1) Volume depletion Status: Acute Plan: check cbc and cmp, normal saline at 50ml/hr, procal at 40ml/hr, albumin 25 % iv daily, continue to monitor (2) Abdominal pain Status: Acute Qualifiers: Abdominal location: lower abdomen, unspecified Qualified Code(s): R10.30 - Lower abdominal pain, unspecified Plan: BENTYL 20MG PO QID, MIRALAX DAILY, MILK OF MAGNESIA 10ML PO QID, COLACE 100MG BID, ABDOMINAL SERIES, CONTINUE TO MONITOR (3) Sinusitis Status: Acute Qualifiers: Sinusitis location: unspecified location Chronicity: acute Recurrence: not specified as recurrent Qualified Code(s): J01.90 - Acute sinusitis, unspecified Plan: flonase 2 sprays to each nostril daily, continue to monitor (4) Anemia Status: Acute Qualifiers: Anemia type: unspecified type Qualified Code(s): D64.9 - Anemia, unspecified Plan: ANEMIA PANEL, CONTINUE TO MONITOR
--- NOTE | 2017-11-22 14:10 | RAD ---
HISTORY: Abdominal Pain Study: Frontal view of the chest, flat and upright views of the abdomen Comparison: CT of the abdomen 11/09/2017 Findings: Cardiomediastinal silhouette is normal in size. No focal consolidations, pleural effusions or pneumot horax. Osseous structures are without acute abnormality. Flat and upright views of the abdomen demonstrates a normal bowel gas pattern. No free air. No abnor mal calcifications or abnormal soft tissue shadows. No acute bony abnormalities. IMPRESSION: 1. No acute cardiopulmonary disease. 2. No evidence for acute abdominal pathology. Reported By:
[2017-11-22] MEDS: VITAMIN D3 PO SCH (14:41)
[2017-11-22] MEDS: NORCO 7.5/325 MG TAB PO PRN (16:29)
[2017-11-22] MEDS: LIPITOR TAB 20 MG PO SCH (17:38)
[2017-11-22] MEDS: ARICEPT TAB 10 MG PO SCH (20:25)
[2017-11-22] MEDS: KLONOPIN TAB 1 MG PO SCH (20:29)
[2017-11-22] MEDS: MIRALAX POWDER (1 DOSE 17GM) PO SCH (20:37)
[2017-11-22] MEDS: SNACK - Diabetic Appropriate PO SCH (20:37)
[2017-11-22] MEDS: PROCALAMINE 3 % 1,000 ML IV SCH (20:38)
[2017-11-23 05:20] LABS: BASOPHILS % (AUTO) 0.6 % (0.2-1.0); EOSINOPHILS # (AUTO) 0.1 x10^3/uL (0.0-0.2); EOSINOPHILS % (AUTO) 1.7 % (0.9-2.9); HEMATOCRIT 25.6 % (36.0-47.0); HEMOGLOBIN 8.2 g/dL (12.0-16.0); LYMPHOCYTES # (AUTO) 1.8 X10^3/uL (1.3-2.9); MEAN CORPUSCULAR HEMOGLOBIN 26.2 pg (27.0-34.0); MEAN CORPUSCULAR HGB CONC 32.1 g/dL (33.0-35.0); MEAN CORPUSCULAR VOLUME 81.6 fL (80.0-100.0); MEAN PLATELET VOLUME 8.3 fL (7.4-11.0); MONOCYTES # (AUTO) 0.7 x10^3/uL (0.3-0.8); MONOCYTES % (AUTO) 9.4 % (0.0-13.0); NEUTROPHILS # (AUTO) 4.8 x10^3/uL (2.2-4.8); NEUTROPHILS % (AUTO) 64.3 % (42.0-75.0); PLATELET COUNT 220 X10^3/uL (150.0-450.0); RED BLOOD COUNT 3.14 X10^6/uL (3.5-5.4); RED CELL DISTRIBUTION WIDTH 19.5 % (11.6-16.5); WHITE BLOOD COUNT 7.5 X10^3/uL (3.6-10.0)
[2017-11-23 05:28] LABS: ALANINE AMINOTRANSFERASE 9 Units/L (12-78); ALBUMIN 3.7 g/dL (3.4-5.0); ALKALINE PHOSPHATASE 45 Units/L (46-116); ASPARTATE AMINO TRANSFERASE 13 Units/L (15-37); BLOOD UREA NITROGEN 19 mg/dL (7-18); CALCIUM 8.6 mg/dL (8.5-10.1); CARBON DIOXIDE 27.1 mmol/L (21-32); CHLORIDE 106 mmol/L (98-107); CREATININE 1.33 mg/dL (0.55-1.02); SODIUM 139 mmol/L (136-145); TOTAL PROTEIN 6.4 g/dL (6.4-8.2); eGFR BLACK RACES 49 (>60); eGFR NON BLACK RACES 40 (>60)
[2017-11-23] MEDS: NEURONTIN CAP 300 MG PO SCH ×2 (06:07→13:23)
[2017-11-23] MEDS: SINEMET (PLAIN) 25/250 MG PO SCH ×2 (06:08→13:22)
[2017-11-23] MEDS: AMARYL TAB 4 MG PO SCH (06:08)
[2017-11-23] MEDS ORDERED: NORVASC TAB 2.5 MG ONE (07:04)
[2017-11-23] MEDS: BENTYL CAP 10 MG PO SCH ×2 (08:43→12:40)
[2017-11-23] MEDS: MILK OF MAGNESIA PO SCH ×3 (08:43→13:02)
[2017-11-23] MEDS: MICRO K EXTEN CAP 10 MEQ PO SCH (08:44)
[2017-11-23] MEDS: COLACE CAP 100 MG PO SCH (08:44)
[2017-11-23] MEDS: NORVASC TAB 2.5 MG PO SCH (08:45)
[2017-11-23] MEDS: PEPCID TAB 20 MG PO SCH (08:46)
[2017-11-23] MEDS: CORDARONE TAB 200 MG PO SCH (08:46)
[2017-11-23] MEDS: ZESTRIL TAB 10 MG PO SCH (08:47)
[2017-11-23] MEDS: CELEXA PO SCH (08:47)
[2017-11-23] MEDS: ELIQUIS PO SCH (08:47)
[2017-11-23] MEDS: SYNTHROID 100 mcg TAB PO SCH (08:47)
[2017-11-23] MEDS: COREG TAB 6.25 MG PO SCH (08:47)
[2017-11-23] MEDS: PROTONIX TAB 40 MG PO SCH (08:47)
[2017-11-23] MEDS: ALBUMIN HUMAN 25%- 100ML 100 ML IV SCH (08:48)
[2017-11-23] MEDS: FLONASE NASAL SPRAY ENOSTRIL SCH (09:51)
[2017-11-23 12:28] VITALS: BP 110/56
[2017-11-23] MEDS: NS 1000 ML 1,000 ML IV SCH (12:28)
[2017-11-23] MEDS: VITAMIN D3 PO SCH (12:40)
== END 2017-11-23 13:45 | disposition home health service (06) | DRG 392 ==
LOC: MED/SURG 14:24
PROVIDERS: ADMIT Internal Medicine; ATTEND Internal Medicine
DX: R10.84 Generalized abdominal pain (principal); E86.9 Volume depletion, unspecified; R11.2 Nausea with vomiting, unspecified; I25.10 Atherosclerotic heart disease of native coronary artery without angina pectoris; E78.2 Mixed hyperlipidemia; K21.9 Gastro-esophageal reflux disease without esophagitis; I10 Essential (primary) hypertension; E03.8 Other specified hypothyroidism; J01.80 Other acute sinusitis; Z87.19 Personal history of other diseases of the digestive system; D64.89 Other specified anemias; Z66 Do not resuscitate; E11.65 Type 2 diabetes mellitus with hyperglycemia; R26.89 Other abnormalities of gait and mobility
CPT/HCPCS: 36415; 74022; 80053; 81001; 82607; 82728; 82746; 83540; 84466; 85025; A4216; A4222; B5200; P9047; S0181; J0696; J0744

== ENCOUNTER 2017-12-15 09:07 | Observation (INO) | payer OTHER ==
--- NOTE | 2017-12-15 09:23 | DR.CP ---
HPI - PCP Primary Care Physician: EDUAR - Complaint Chief Complaint Doctor Comments: Patient admits to chest pain for two days that radiates to left neck. The pain has not been relieved. She admits to having stents x 3 ten years ago. 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 Chief Complaint:: PATIENT STATED SHE STARTED HAVING CHEST PAIN THAT STARTED 2 DAYS AGO BUT LAST NIGHT IT WAS WORSE AND DID NOT GO AWAY. - Source History Provided: Patient - Mode of Arrival Mode of Arrival: Wheelchair - Timing Onset of Chief Complaint: 12/13/17 PMH - PMH Past Medical History: Yes Past Medical History: Anemia, Arthritis, CHF, Coronary Artery Disease, Diabetes , Dyslipidemia, GERD, Hypertension, Hypothyroidism, Kidney Stones Past Surgical History: Yes Surgical History: Abdominal Surgery, Appendectomy, Bowel Resection, Cholecystectomy, Hysterectomy, Ortho Surgery, Tonsillectomy, Other - Family History History of Family Medical Conditions: Yes Family Medical History: Diabetes Mellitus, [place], Hypertension - Social History Does patient currently use any type of tobacco product: Yes Have you used tobacco products in the last 12 months: Yes Type of Tobacco Use: Cigarettes Does any household member use tobacco: No Alcohol Use: None Do you use any recreational Drugs:: No Lives With: Family Lives Where: Home - infectious screening In the last 2 months have you had wt loss of >10#?: NO Have you had fever, night sweats or hemotysis?: No Have you traveled outside the country in the last 6 months?: No Isolation: Standard ROS - Review of Systems Constitutional: negative: Diaphoresis Eyes: No Symptoms Reported ENTM: No Symptoms Reported Respiratoy: No Symptoms Reported Cardiovascular: Chest Pain Gastrointestinal/Abdominal: No Symptoms Reported Genitourinary: No Symptoms Reported Neurological: No Symptoms Reported Musculoskeletal: No Symptoms Reported Integumentary: No Symptoms Reported Hematologic/Lymphatic: No Symptoms Reported Endocrine: No Symptoms Reported Psychiatric: No Symptoms Reported All Other Systems: Reviewed and Negative PE - Vitals Vitals: Temperature 98.4 F Pulse Rate [Left Brachial] 80 Pulse Rate 60 Respiratory Rate 16 Blood Pressure [Left Calf] 149/72 Blood Pressure [Right Arm] 114/59 Blood Pressure [Left Arm] 142/78 Blood Pressure 175/81 O2 Sat by Pulse Oximetry 96 - General Limitations: No Limitations General Appearance: Alert, In No Apparent Distress - Head Head Exam: Normal Inspection, Atraumatic - Eyes Eye exam: Normal Appearance, PERRL, EOMI - ENT ENT Exam: Normal Exam, Normal Oropharynx - Chest Chest Inspection: Normal Inspection, Symmetric Chest Wall Rise - Respiratory Respiratory Exam: Normal Lung Sounds Bilat Respiratory Exam: Bilateral Clear to Auscultation - Cardiovascular Cardiovascular Exam: Regular Rate, Normal Rhythm Pulse: Normal Edema: Normal - Abdominal Exam Abdominal Exam: Normal Inspection, Normal Bowel Sounds Abdominal Tenderness: negative: RUQ, RLQ, LUQ, LLQ, Epigastrium, Suprapubic, Diffuse, Mild, Moderate, Severe, Other - Extremities Extremities Exam: Normal Inspection, Full ROM - Back Back Exam: Normal Inspection, Full ROM - Neurologic Neurological Exam: Alert, Oriented X3, CN II-XII Intact - Psychiatric Psychiatric Exam: Normal Affect, Normal Mood - Skin Skin Exam: Warm, Intact ROR - Labs Reviewed Result Diagrams: 12/15/17 09:34 12/15/17 09:34 Laboratory: WBC 6.4 X10^3/uL (3.6-10.0) 12/15/17 09:34 RBC 3.75 X10^6/uL (3.5-5.4) 12/15/17 09:34 Hgb 10.1 g/dL (12.0-16.0) L 12/15/17 09:34 Hct 31.3 % (36.0-47.0) L 12/15/17 09:34 MCV 83.4 fL (80.0-100.0) 12/15/17 09:34 MCH 27.0 pg (27.0-34.0) 12/15/17 09:34 MCHC 32.3 g/dL (33.0-35.0) L 12/15/17 09:34 RDW 22.2 % (11.6-16.5) H 12/15/17 09:34 Plt Count 238 X10^3/uL (150.0-450.0) 12/15/17 09:34 Plt Count Comment Adequate (ADEQUATE) 12/15/17 09:34 MPV 8.7 fL (7.4-11.0) 12/15/17 09:34 Neut % 66.4 % (42.0-75.0) 12/15/17 09:34 Lymph % 23.1 % (21.0-51.0) 12/15/17 09:34 [place] % 8.5 % (0.0-13.0) 12/15/17 09:34 Eos % 1.2 % (0.9-2.9) 12/15/17 09:34 Baso % 0.8 % (0.2-1.0) 12/15/17 09:34 Neut # 4.3 x10^3/uL (2.2-4.8) 12/15/17 09:34 Lymph # 1.5 X10^3/uL (1.3-2.9) 12/15/17 09:34 [place] # 0.5 x10^3/uL (0.3-0.8) 12/15/17 09:34 Eos # 0.1 x10^3/uL (0.0-0.2) 12/15/17 09:34 Baso # 0.0 X10^3/uL (0.0-0.1) 12/15/17 09:34 Absolute Nucleated RBC 0.1 /100WBC 12/15/17 09:34 Plt Morphology Comment Normal (NORMAL) 12/15/17 09:34 RBC Morphology Abnormal (NORMAL) A 12/15/17 09:34 Anisocytosis Slight A 12/15/17 09:34 Macrocytosis Slight A 12/15/17 09:34 INR Target Range - 12/15/17 09:34 INR 1.39 (0.8-1.3) H 12/15/17 09:34 PTT 30.5 SECONDS (22.9-36.5) 12/15/17 09:34 PTT Comment - 12/15/17 09:34 Sodium 142 mmol/L (136-145) 12/15/17 09:34 Corrected Sodium 143 mmol/L (136-145) 12/15/17 09:34 Potassium 4.5 mmol/L (3.5-5.1) 12/15/17 09:34 Chloride 107 mmol/L (98-107) 12/15/17 09:34 Carbon Dioxide 26.1 mmol/L (21-32) 12/15/17 09:34 BUN 32 mg/dL (7-18) H 12/15/17 09:34 Creatinine 2.34 mg/dL (0.55-1.02) H 12/15/17 09:34 Est GFR (MDRD) Af Amer 25 (>60) L 12/15/17 09:34 Est GFR (MDRD) Non-Af 21 (>60) L 12/15/17 09:34 Glucose 152 mg/dL (65-99) H 12/15/17 09:34 Calcium 8.8 mg/dL (8.5-10.1) 12/15/17 09:34 Corrected Calcium TNP 12/15/17 09:34 Magnesium 2.4 mg/dL (1.7-2.9) 12/15/17 09:34 Total Bilirubin 0.40 mg/dL (0.2-1.0) 12/15/17 09:34 AST 18 Units/L (15-37) 12/15/17 09:34 ALT 13 Units/L (12-78) 12/15/17 09:34 Alkaline Phosphatase 39 Units/L (46-116) L 12/15/17 09:34 Creatine Kinase 50 Units/L (26-192) 12/15/17 09:34 CK-MB (CK-2) < 1.0 ng/mL (0-4.0) 12/15/17 09:34 CK/CKMB % Calc 2.0 % (<4) 12/15/17 09:34 Troponin I < 0.02 ng/mL (0-1.5) 12/15/17 09:34 Total Protein 7.0 g/dL (6.4-8.2) 12/15/17 09:34 Albumin 3.7 g/dL (3.4-5.0) 12/15/17 09:34 Globulin 3.3 g/dL (2.5-4.5) 12/15/17 09:34 Albumin/Globulin Ratio 1.1 Ratio (1.1-2.1) 12/15/17 09:34 - XRAY XRAY Interpreted by: Radiologist (Chest; No cardiopulmonary abnormality, stable mild cardiac enlargement) - Discharge Plan Condition: Stable - Follow ups/Referrals Follow ups/Referrals: Ramiro Petit [Primary Care Provider] - 3 days - Instructions
[2017-12-15] MEDS ORDERED: ASPIRIN 81 MG CHEWTAB PO STA (09:25)
[2017-12-15] MEDS ORDERED: DUONEB 0.5 MG/3 MG ONE (09:38)
[2017-12-15] MEDS ORDERED: ASPIRIN 81 MG CHEWTAB ONE (09:39)
[2017-12-15] MEDS ORDERED: DUONEB 0.5 MG/3 MG NEB ONE (09:43)
[2017-12-15] MEDS: NITROSTAT SL PRN ×3 (09:44→09:55)
[2017-12-15 10:06] LABS: CREATINE KINASE 50 Units/L (26-192); CREATINE KINASE MB < 1.0 ng/mL (0-4.0); MAGNESIUM 2.4 mg/dL (1.7-2.9); TROPONIN I < 0.02 ng/mL (0-1.5)
--- NOTE | 2017-12-15 10:06 | RAD ---
History: Chest pain Technique: AP chest Comparison: 02/22/2017 Findings: Right-sided chest port again noted. To the catheter terminates just above the cavoatrial junction. Th ere is a dual lead pacemaker device present. The pulse generator projects over the left lung base. Deborah ngs appear grossly clear. Cardiac silhouette is mildly enlarged, stable. No focal airspace opacities seen. No large pleural effusions. Impression: 1. No radiographic evidence of acute cardiopulmonary process. Stable mild enlargement of the cardiac silhouette is noted. Lungs appear clear. Reported By:
[2017-12-15] MEDS: NS 1000 ML 1,000 ML IV SCH ×2 (10:10→21:51)
[2017-12-15] MEDS ORDERED: MORPHINE SULFATE INJ 2 MG INJ IVP ONE (10:18)
[2017-12-15] MEDS ORDERED: MORPHINE SULFATE INJ 2 MG INJ ONE (10:21)
[2017-12-15 10:28] LABS: BASOPHILS % (AUTO) 0.8 % (0.2-1.0); EOSINOPHILS # (AUTO) 0.1 x10^3/uL (0.0-0.2); EOSINOPHILS % (AUTO) 1.2 % (0.9-2.9); HEMATOCRIT 31.3 % (36.0-47.0); HEMOGLOBIN 10.1 g/dL (12.0-16.0); LYMPHOCYTES # (AUTO) 1.5 X10^3/uL (1.3-2.9); LYMPHOCYTES % (AUTO) 23.1 % (21.0-51.0); MEAN CORPUSCULAR HGB CONC 32.3 g/dL (33.0-35.0); MEAN CORPUSCULAR VOLUME 83.4 fL (80.0-100.0); MEAN PLATELET VOLUME 8.7 fL (7.4-11.0); MONOCYTES # (AUTO) 0.5 x10^3/uL (0.3-0.8); MONOCYTES % (AUTO) 8.5 % (0.0-13.0); NEUTROPHILS # (AUTO) 4.3 x10^3/uL (2.2-4.8); NEUTROPHILS % (AUTO) 66.4 % (42.0-75.0); PLATELET COUNT 238 X10^3/uL (150.0-450.0); RED BLOOD COUNT 3.75 X10^6/uL (3.5-5.4); RED CELL DISTRIBUTION WIDTH 22.2 % (11.6-16.5); WHITE BLOOD COUNT 6.4 X10^3/uL (3.6-10.0)
[2017-12-15 10:37] LABS: ALANINE AMINOTRANSFERASE 13 Units/L (12-78); ALBUMIN 3.7 g/dL (3.4-5.0); ALKALINE PHOSPHATASE 39 Units/L (46-116); ASPARTATE AMINO TRANSFERASE 18 Units/L (15-37); BLOOD UREA NITROGEN 32 mg/dL (7-18); CALCIUM 8.8 mg/dL (8.5-10.1); CARBON DIOXIDE 26.1 mmol/L (21-32); CHLORIDE 107 mmol/L (98-107); COR NA(FOR HYPERGLY) 143 mmol/L (136-145); CREATININE 2.34 mg/dL (0.55-1.02); SODIUM 142 mmol/L (136-145); eGFR BLACK RACES 25 (>60); eGFR NON BLACK RACES 21 (>60)
[2017-12-15] MEDS ORDERED: MORPHINE SULFATE INJ 4 MG IVP ONE (10:40)
[2017-12-15] MEDS ORDERED: MORPHINE SULFATE INJ 4 MG ONE ×2 (10:44→11:44)
[2017-12-15 10:46] LABS: ANISOCYTOSIS SLIGHT; PLATELET MORPHOLOGY COMMENT NORMAL (NORMAL)
[2017-12-15] MEDS ORDERED: MEGACE PO PRN (11:08)
[2017-12-15] MEDS ORDERED: ZOFRAN TAB 4 MG PO PRN (11:38)
[2017-12-15] MEDS: MORPHINE SULFATE INJ 4 MG IVP PRN (11:49)
[2017-12-15] MEDS ORDERED: MORPHINE SULFATE INJ 4 MG IVP SCH (12:00)
[2017-12-15] MEDS ORDERED: CELEXA PO SCH (13:00)
[2017-12-15 13:58] VITALS: BMI 29.5
[2017-12-15] MEDS: BENTYL CAP 10 MG PO SCH ×3 (14:07→21:53)
[2017-12-15] MEDS: NEURONTIN CAP 300 MG PO SCH ×2 (14:07→21:51)
[2017-12-15] MEDS: SINEMET (PLAIN) 25/250 MG PO SCH ×2 (14:07→21:54)
[2017-12-15] MEDS: NORCO 7.5/325 MG TAB PO PRN (14:08)
[2017-12-15 16:35] LABS: CREATINE KINASE 49 Units/L (26-192); CREATINE KINASE MB < 1.0 ng/mL (0-4.0); TROPONIN I < 0.02 ng/mL (0-1.5)
[2017-12-15] MEDS: LIPITOR TAB 20 MG PO SCH (17:24)
[2017-12-15] MEDS ORDERED: MIRALAX POWDER (255 GM BTL) PO SCH (21:00)
[2017-12-15] MEDS: FLONASE NASAL SPRAY ENOSTRIL SCH (21:50)
[2017-12-15] MEDS: PEPCID TAB 20 MG PO SCH (21:51)
[2017-12-15] MEDS: REQUIP PO SCH (21:51)
[2017-12-15] MEDS: LASIX PO SCH (21:52)
[2017-12-15] MEDS: COREG TAB 6.25 MG PO SCH (21:52)
[2017-12-15] MEDS: COLACE CAP 100 MG PO SCH (21:53)
[2017-12-15] MEDS: ELIQUIS PO SCH (21:53)
[2017-12-15] MEDS: KLONOPIN TAB 0.5 MG PO SCH (21:54)
[2017-12-15] MEDS: AMARYL TAB 4 MG PO SCH (21:54)
[2017-12-15] MEDS: ARICEPT TAB 10 MG PO SCH (21:55)
[2017-12-15] MEDS: PROTONIX TAB 40 MG PO SCH (21:55)
[2017-12-15 22:23] LABS: CKMB % 2.2 % (<4); CREATINE KINASE 45 Units/L (26-192); CREATINE KINASE MB < 1.0 ng/mL (0-4.0); TROPONIN I < 0.02 ng/mL (0-1.5)
[2017-12-16] MEDS: NS 1000 ML 1,000 ML IV SCH ×3 (04:06→13:37)
[2017-12-16] MEDS: NEURONTIN CAP 300 MG PO SCH ×3 (05:30→21:49)
[2017-12-16] MEDS: SINEMET (PLAIN) 25/250 MG PO SCH ×3 (05:30→21:50)
[2017-12-16 06:14] LABS: BASOPHILS % (AUTO) 0.5 % (0.2-1.0); EOSINOPHILS # (AUTO) 0.1 x10^3/uL (0.0-0.2); EOSINOPHILS % (AUTO) 1.7 % (0.9-2.9); HEMATOCRIT 27.3 % (36.0-47.0); HEMOGLOBIN 8.9 g/dL (12.0-16.0); LYMPHOCYTES # (AUTO) 1.3 X10^3/uL (1.3-2.9); LYMPHOCYTES % (AUTO) 23.7 % (21.0-51.0); MEAN CORPUSCULAR HEMOGLOBIN 27.1 pg (27.0-34.0); MEAN CORPUSCULAR HGB CONC 32.6 g/dL (33.0-35.0); MEAN CORPUSCULAR VOLUME 83.1 fL (80.0-100.0); MEAN PLATELET VOLUME 8.6 fL (7.4-11.0); MONOCYTES # (AUTO) 0.5 x10^3/uL (0.3-0.8); MONOCYTES % (AUTO) 8.6 % (0.0-13.0); NEUTROPHILS # (AUTO) 3.6 x10^3/uL (2.2-4.8); NEUTROPHILS % (AUTO) 65.5 % (42.0-75.0); PLATELET COUNT 176 X10^3/uL (150.0-450.0); RED BLOOD COUNT 3.28 X10^6/uL (3.5-5.4); WHITE BLOOD COUNT 5.5 X10^3/uL (3.6-10.0)
[2017-12-16 06:27] LABS: ALBUMIN 3.1 g/dL (3.4-5.0); CALCIUM 7.9 mg/dL (8.5-10.1); CARBON DIOXIDE 25.7 mmol/L (21-32); CHOL/HDL RATIO 2.1 (0.0-5.0); COR CA(FOR HYPOALB) 8.6 mg/dL (8.5-10.1); CREATININE 1.98 mg/dL (0.55-1.02)
[2017-12-16 06:50] LABS: ANISOCYTOSIS 1+; PLATELET MORPHOLOGY COMMENT NORMAL (NORMAL)
[2017-12-16] MEDS ORDERED: NORVASC TAB 2.5 MG ONE (08:30)
[2017-12-16] MEDS: HEMOCYTE-PLUS PO SCH (08:50)
[2017-12-16] MEDS: CELEXA PO SCH (08:50)
[2017-12-16] MEDS: SYNTHROID 100 mcg TAB PO SCH (08:51)
[2017-12-16] MEDS: COLACE CAP 100 MG PO SCH ×2 (08:51→20:37)
[2017-12-16] MEDS: ZESTRIL TAB 10 MG PO SCH (08:51)
[2017-12-16] MEDS: AMARYL TAB 4 MG PO SCH ×2 (08:52→20:38)
[2017-12-16] MEDS: PROTONIX TAB 40 MG PO SCH ×2 (08:52→20:36)
[2017-12-16] MEDS: COREG TAB 6.25 MG PO SCH ×2 (08:52→20:38)
[2017-12-16] MEDS: PEPCID TAB 20 MG PO SCH ×2 (08:53→20:36)
[2017-12-16] MEDS: BENTYL CAP 10 MG PO SCH ×4 (08:53→20:34)
[2017-12-16] MEDS: NORVASC TAB 2.5 MG PO SCH (08:54)
[2017-12-16] MEDS: MICRO K EXTEN CAP 10 MEQ PO SCH (08:55)
[2017-12-16] MEDS: ELIQUIS PO SCH ×2 (08:55→20:36)
[2017-12-16] MEDS: LASIX PO SCH ×2 (08:56→20:40)
[2017-12-16] MEDS: NORCO 7.5/325 MG TAB PO PRN ×2 (10:07→20:35)
[2017-12-16] MEDS: FORTAZ or TAZICEF INJ 1 GM in NS 100 ML IV + SPIKE MINIBAG* 100 ML IV SCH (10:44)
[2017-12-16] MEDS ORDERED: PHARMACY CONSULT - DOSE _____ XX SCH (11:00)
[2017-12-16] MEDS ORDERED: LEVAQUIN PREMIX IV 500 MG 500 MG/100 ML BAG IV SCH (11:00)
[2017-12-16] MEDS: VITAMIN D3 PO SCH (11:10)
--- NOTE | 2017-12-16 11:28 | DR.H&P ---
H&P - History & Physical for Day of: H&P Date: 12/15/17 - Chief Complaint Chief Complaint: chest pain - Allergies Allergies/Adverse Reactions: Allergies Allergy/AdvReac Type Severity Reaction Status Date / Time ADHESIVE TAPE Allergy Uncoded 12/15/17 09:09 - History of Present Illness History of Present Illness: is a 82 year old patient of ours who presented to the emergency room with reports of chest pain. Patient states that pain began two days ago and has progressively gotten worse. Patient reports that pain radiates down left side of neck. Patient reports she had stent placement x3 ten years ago. She also reports a non-productive cough for the past several days. Medical History includes: Cataracts, CVA, TIA, Parkinsons Disease, Neuropathy, [place], Pacemaker, Hyperlipidemia, Hypertension, A- fib, Pneumonia, Sleep Apnea, Gerd, Gastric Ulcer, Diverticulosis, Arthritis, DM type II, Hypothyroidism, Breast CA, Anxiety, and Depression. On arrival, vital signs were 98.4, 60, 16, 98% RA, 175/81. Labs were obtained. Abnormal Labs include the following: Hgb 10.1, Hct 31.3, MCHC 32.3, RDW 22.2, INR 1.39, BUN 32 , Creatinine 2.34, GFR af 25, GFR non 21, Glucose 152, Alk Phos 39. Chest X-Ray obtained and reported: No radiographic evidence of acute cardiopulmonary process. Stable mild enlargement of the cardiac silhouette is noted. Lungs appear clear. EKG reported: Sinus Rhythm. Rate=60. Cardiac enzymes within normal limits. She was given morphine sulfate IV, a duoneb, and Aspirin 325mg po x 1. No improvement in symptoms noted. Patient was admitted to the hospital for further evaluation and treatment. We plan to obtain serial cardiac enzymes and EKGs. We planned to follow up with AM labs and continue to monitor patient. - Past Medical History Past Medical History: Anemia, Arthritis, CHF, Coronary Artery Disease, Diabetes , Dyslipidemia, GERD, Hypertension, Hypothyroidism, Kidney Stones Additional Medical History: Vision Deficit, Parkinson's Disease, Atrial Fibrillation, Bronchitis, Pneumonia, Constipation, Diarrhea, Colon Cancer, Breast Cancer, Urinary Tract Infections, Muscle Weakness, Back Pain, Neuropathy , Previous Blood Transfusion - Past Surgical History Surgical History: Abdominal Surgery, Appendectomy, Bowel Resection, Cholecystectomy, Hysterectomy, Ortho Surgery, Tonsillectomy, Other Additional Surgical History: Pacemaker, Two Colon Resection's for Colon Cancer, Left Partial Mastectomy for Breast Cancer, Right Chest Wall Port a cath, Left PAU - Family History Family Medical History: Diabetes Mellitus, [place], Hypertension - Social History Does patient currently use any type of tobacco product: No Have you used tobacco products in the last 12 months: No Type of Tobacco Use: None Does any household member use tobacco: No Alcohol Use: None Drug Use: None - Medications Home Medications: Amlodipine Besylate [NORVASC 5 MG *] 5 mg PO DAILY 12/15/17 [History Confirmed 12/15/17] Atorvastatin Calcium 10 mg PO DAILY 12/15/17 [History Confirmed 12/15/17] Carbidopa/Levodopa [Carbidopa/Levodopa Odt] 1 tab PO TID 12/15/17 [History Confirmed 12/15/17] Carvedilol 6.25 mg PO BID 12/15/17 [History Confirmed 12/15/17] Cholecalciferol (Vitamin D3) [Vitamin D3] 2,000 unit PO DAILY 12/15/17 [History Confirmed 12/15/17] Citalopram 20 mg Tab [CELEXA 20 MG *] 20 mg PO DAILY 12/15/17 [History Confirmed 12/15/17] Dicyclomine HCl 20 mg PO QID PRN 12/15/17 [History Confirmed 12/15/17] Donepezil HCl [Aricept] 10 mg PO HS 12/15/17 [History Confirmed 12/15/17] Famotidine 20 mg PO BID 12/15/17 [History Confirmed 12/15/17] Furosemide 20 mg PO BID 12/15/17 [History Confirmed 12/15/17] Gabapentin 300 mg PO TID 12/15/17 [History Confirmed 12/15/17] Glimepiride [Glimepiride 2 mg] 2 mg PO BID 12/15/17 [History Confirmed 12/15/17] Iron Fum/Folic Acid/Mv,Min 15 [Centratex] 1 tab PO DAILY 12/15/17 [History Confirmed 12/15/17] Levothyroxine Sodium [SYNTHROID 100 mcg *] 1 tab PO DAILYAC 12/15/17 [History Confirmed 12/15/17] Lisinopril [Prinivil] 10 mg PO DAILY 12/15/17 [History Confirmed 12/15/17] Pantoprazole Sodium 40 mg [Protonix Tab 40 mg] 40 mg PO BID 12/15/17 [History Confirmed 12/15/17] Potassium Chloride 10 meq PO QID 12/15/17 [History Confirmed 12/15/17] Ropinirole HCl [Requip] 2 mg PO HS 12/15/17 [History Confirmed 12/15/17] - Review of Systems Constitutional: Weakness Eyes: No Symptoms Reported. denies: See HPI, Pain, Vision Change, Conjunctivae Inflammation, Eyelid Inflammation, Redness, Other ENT: No Symptoms Reported. denies: See HPI, Ear Pain, Ear Discharge, Nose Pain , Nose Discharge, Nose Congestion, Mouth Pain, Mouth Swelling, Throat Pain, Throat Swelling, Other Respiratory: Cough, Shortness of Breath, Wheezing Cardiovascular: Chest Pain Gastrointestinal: No Symptoms Reported. denies: See HPI, Nausea, Vomiting, Abdominal Pain, Diarrhea, Constipation, Melena, Hematochezia, Other Genitourinary: No Symptoms Reported. denies: See HPI, Dysuria, Frequency, Incontinence, Hematuria, Retention, Other Musculoskeletal: Neck Pain (pain that radiates down left side of neck ). denies : No Symptoms Reported, See HPI, Shoulder Pain, Arm Pain, Back Pain, Hand Pain, Leg Pain, Foot Pain, Other Skin: No Symptoms Reported. denies: See HPI, Rash, Lesions, Jaundice, Bruising , Wound, Ecchymosis, Other Neurological: Weakness. denies: No Symptoms Reported, See HPI, Numbness, Incoordination, Change in Speech, Confusion, Seizures, Other - Physical Exam Vital Signs: Temperature 98.4 F Pulse Rate [Left Brachial] 67 Pulse Rate 60 Respiratory Rate 19 Blood Pressure [Left Calf] 149/72 Blood Pressure [Right Arm] 160/75 Blood Pressure [Left Arm] 155/80 Blood Pressure 175/81 O2 Sat by Pulse Oximetry 97 Oriented: Normal Eyes: Normal Ear: Normal. negative: Right, Left, Swelling, Ecchymosis, Hemotypanum, Abrasion , Laceration Nose: Normal. negative: Injected, Discharge, Blood, Other Throat: Normal. negative: Tonsillar Hypertrophy, Red, Exudate, Dry, Other Respiratory: Wheezes Throughout Cardiovascular: Normal. negative: S3, S4, Murmur : Normal. negative: Dysuria, Hematuria, Frequency, Discharge, Testicular Pain , Bleeding, , Other Auscultation: Bowel Sounds: Normal. negative: Bruit, Absent, Increased, Decreased, High Pitched, Other Palpation: Normal. negative: Spleen Enlarged, Liver Enlarged, Mass Pulsatile, Other Tenderness: Normal Skin: Normal. negative: Decreased Turgur, Rash, Papular, Macular, Maculopapular , Vesicular, Pustular, Petechial, Red, Tender, Hot, Diaphoresis, Wound, Bruising , Ecchymosis, Other Musculoskeletal: Normal Psychiatric: Normal. negative: Anxiety, Depression, Agitation, Other Mood Description: Calm Affect: Normal Speech Pattern: Clear - Assessment/Plan (1) Chest pain, rule out acute myocardial infarction Status: Acute Plan: serial cardiac enzymes and EKG, supplemental oxygen, telemetry, continue to monitor patient.
--- NOTE | 2017-12-16 11:32 | RAD ---
Examination: Portable AP chest History: SOB, wheezing Comparison December 15, 2017 Findings: Stable cardiac size and contour with clear lungs and pleural spaces. No change in appearanc e of the pacemaker or right IJ injection port. Impression: No change; no acute findings. Reported By:
[2017-12-16] MEDS: DUONEB 0.5 MG/3 MG NEB SCH ×4 (13:21→20:22)
[2017-12-16] MEDS: LIPITOR TAB 20 MG PO SCH (17:04)
[2017-12-16] MEDS ORDERED: MIRALAX POWDER (1 DOSE 17GM) ONE (20:23)
[2017-12-16] MEDS: ARICEPT TAB 10 MG PO SCH (20:35)
[2017-12-16] MEDS: REQUIP PO SCH (20:39)
[2017-12-16] MEDS: KLONOPIN TAB 0.5 MG PO SCH (20:39)
[2017-12-16] MEDS: FLONASE NASAL SPRAY ENOSTRIL SCH (20:39)
[2017-12-16] MEDS: MIRALAX POWDER (1 DOSE 17GM) PO SCH (20:45)
[2017-12-16] MEDS: MORPHINE SULFATE INJ 4 MG IVP PRN (22:26)
[2017-12-17] MEDS: NEURONTIN CAP 300 MG PO SCH ×3 (05:24→22:03)
[2017-12-17] MEDS: SINEMET (PLAIN) 25/250 MG PO SCH ×3 (05:24→22:03)
[2017-12-17] MEDS: NS 1000 ML 1,000 ML IV SCH ×3 (05:24→20:56)
--- NOTE | 2017-12-17 06:24 | RAD ---
Examination: Portable AP chest History: SOB Comparison 12/16/2017 Findings: Continued stable heart size with no change in position of injection port or pacemaker. Hailey r lungs and pleural spaces. Impression: No change; no acute findings. Reported By:
[2017-12-17 06:28] LABS: BASOPHILS % (AUTO) 0.7 % (0.2-1.0); EOSINOPHILS # (AUTO) 0.1 x10^3/uL (0.0-0.2); EOSINOPHILS % (AUTO) 1.8 % (0.9-2.9); HEMATOCRIT 29.2 % (36.0-47.0); HEMOGLOBIN 9.6 g/dL (12.0-16.0); LYMPHOCYTES # (AUTO) 1.8 X10^3/uL (1.3-2.9); LYMPHOCYTES % (AUTO) 33.4 % (21.0-51.0); MEAN CORPUSCULAR HEMOGLOBIN 27.4 pg (27.0-34.0); MEAN CORPUSCULAR HGB CONC 32.9 g/dL (33.0-35.0); MEAN CORPUSCULAR VOLUME 83.2 fL (80.0-100.0); MEAN PLATELET VOLUME 8.4 fL (7.4-11.0); MONOCYTES # (AUTO) 0.5 x10^3/uL (0.3-0.8); MONOCYTES % (AUTO) 9.7 % (0.0-13.0); NEUTROPHILS % (AUTO) 54.4 % (42.0-75.0); PLATELET COUNT 205 X10^3/uL (150.0-450.0); RED BLOOD COUNT 3.51 X10^6/uL (3.5-5.4); RED CELL DISTRIBUTION WIDTH 23.1 % (11.6-16.5); WHITE BLOOD COUNT 5.5 X10^3/uL (3.6-10.0)
[2017-12-17 06:36] LABS: HYPOCHROMASIA SLIGHT; MICROCYTOSIS SLIGHT; PLATELET MORPHOLOGY COMMENT NORMAL (NORMAL)
[2017-12-17 06:43] LABS: ALANINE AMINOTRANSFERASE 23 Units/L (12-78); ALBUMIN 3.2 g/dL (3.4-5.0); ALKALINE PHOSPHATASE 85 Units/L (46-116); ASPARTATE AMINO TRANSFERASE 106 Units/L (15-37); BLOOD UREA NITROGEN 20 mg/dL (7-18); CALCIUM 8.3 mg/dL (8.5-10.1); CARBON DIOXIDE 27.5 mmol/L (21-32); CHLORIDE 107 mmol/L (98-107); COR CA(FOR HYPOALB) 8.9 mg/dL (8.5-10.1); CREATININE 1.51 mg/dL (0.55-1.02); SODIUM 141 mmol/L (136-145); TOTAL PROTEIN 6.5 g/dL (6.4-8.2); eGFR BLACK RACES 42 (>60); eGFR NON BLACK RACES 35 (>60)
[2017-12-17] MEDS: DUONEB 0.5 MG/3 MG NEB SCH ×4 (09:11→20:00)
[2017-12-17] MEDS ORDERED: NORVASC TAB 2.5 MG ONE (09:16)
[2017-12-17] MEDS: CELEXA PO SCH (09:25)
[2017-12-17] MEDS: FORTAZ or TAZICEF INJ 1 GM in NS 100 ML IV + SPIKE MINIBAG* 100 ML IV SCH (09:25)
[2017-12-17] MEDS: HEMOCYTE-PLUS PO SCH (09:26)
[2017-12-17] MEDS: NORVASC TAB 2.5 MG PO SCH (09:26)
[2017-12-17] MEDS: COLACE CAP 100 MG PO SCH ×2 (09:26→20:56)
[2017-12-17] MEDS: ZESTRIL TAB 10 MG PO SCH (09:28)
[2017-12-17] MEDS: MICRO K EXTEN CAP 10 MEQ PO SCH (09:28)
[2017-12-17] MEDS: PEPCID TAB 20 MG PO SCH ×2 (09:29→20:58)
[2017-12-17] MEDS: COREG TAB 6.25 MG PO SCH ×2 (09:29→20:57)
[2017-12-17] MEDS: ELIQUIS PO SCH ×2 (09:29→20:57)
[2017-12-17] MEDS: SYNTHROID 100 mcg TAB PO SCH (09:29)
[2017-12-17] MEDS: BENTYL CAP 10 MG PO SCH ×4 (09:30→20:56)
[2017-12-17] MEDS: LASIX PO SCH ×2 (09:30→20:57)
[2017-12-17] MEDS: PROTONIX TAB 40 MG PO SCH ×2 (09:31→20:58)
[2017-12-17] MEDS: AMARYL TAB 4 MG PO SCH ×2 (09:31→20:56)
[2017-12-17] MEDS: NORCO 7.5/325 MG TAB PO PRN (11:50)
[2017-12-17] MEDS: MUCOMYST 20% 200 MG/ML NEB SCH ×3 (12:37→20:00)
[2017-12-17] MEDS: VITAMIN D3 PO SCH (12:53)
[2017-12-17] MEDS ORDERED: CHLORASEPTIC SPRAY MT PRN (15:57)
[2017-12-17] MEDS: LIPITOR TAB 20 MG PO SCH (17:58)
[2017-12-17] MEDS: ARICEPT TAB 10 MG PO SCH (20:56)
[2017-12-17] MEDS: MIRALAX POWDER (1 DOSE 17GM) PO SCH (20:57)
[2017-12-17] MEDS: FLONASE NASAL SPRAY ENOSTRIL SCH (20:57)
[2017-12-17] MEDS: KLONOPIN TAB 0.5 MG PO SCH (20:57)
[2017-12-17] MEDS: REQUIP PO SCH (20:58)
[2017-12-18] MEDS: MORPHINE SULFATE INJ 4 MG IVP PRN (04:00)
[2017-12-18] MEDS: NS 1000 ML 1,000 ML IV SCH (05:32)
[2017-12-18] MEDS: NEURONTIN CAP 300 MG PO SCH (06:05)
[2017-12-18] MEDS: SINEMET (PLAIN) 25/250 MG PO SCH (06:06)
[2017-12-18 06:08] LABS: BASOPHILS % (AUTO) 0.7 % (0.2-1.0); EOSINOPHILS # (AUTO) 0.1 x10^3/uL (0.0-0.2); EOSINOPHILS % (AUTO) 2.2 % (0.9-2.9); HEMATOCRIT 28.3 % (36.0-47.0); HEMOGLOBIN 9.3 g/dL (12.0-16.0); LYMPHOCYTES # (AUTO) 2.2 X10^3/uL (1.3-2.9); LYMPHOCYTES % (AUTO) 33.5 % (21.0-51.0); MEAN CORPUSCULAR HEMOGLOBIN 27.4 pg (27.0-34.0); MEAN CORPUSCULAR HGB CONC 32.9 g/dL (33.0-35.0); MEAN CORPUSCULAR VOLUME 83.3 fL (80.0-100.0); MEAN PLATELET VOLUME 8.5 fL (7.4-11.0); MONOCYTES # (AUTO) 0.7 x10^3/uL (0.3-0.8); MONOCYTES % (AUTO) 10.2 % (0.0-13.0); NEUTROPHILS # (AUTO) 3.5 x10^3/uL (2.2-4.8); NEUTROPHILS % (AUTO) 53.4 % (42.0-75.0); PLATELET COUNT 203 X10^3/uL (150.0-450.0); RED CELL DISTRIBUTION WIDTH 23.6 % (11.6-16.5); WHITE BLOOD COUNT 6.5 X10^3/uL (3.6-10.0)
[2017-12-18 06:41] LABS: ANISOCYTOSIS SLIGHT; PLATELET MORPHOLOGY COMMENT NORMAL (NORMAL)
[2017-12-18 06:50] LABS: ALANINE AMINOTRANSFERASE 18 Units/L (12-78); ALBUMIN 3.2 g/dL (3.4-5.0); ALKALINE PHOSPHATASE 69 Units/L (46-116); ASPARTATE AMINO TRANSFERASE 36 Units/L (15-37); BLOOD UREA NITROGEN 16 mg/dL (7-18); CALCIUM 8.6 mg/dL (8.5-10.1); CARBON DIOXIDE 25.9 mmol/L (21-32); CHLORIDE 108 mmol/L (98-107); COR CA(FOR HYPOALB) 9.2 mg/dL (8.5-10.1); CREATININE 1.56 mg/dL (0.55-1.02); SODIUM 142 mmol/L (136-145); TOTAL PROTEIN 6.3 g/dL (6.4-8.2); eGFR BLACK RACES 41 (>60); eGFR NON BLACK RACES 34 (>60)
--- NOTE | 2017-12-18 08:28 | RAD ---
Examination: Portable AP chest History: SOB and wheezing Comparison 12/17/2017 Findings: There is no change in appearance of heart, lungs, mediastinum. Stable position of pacing de vice and injection port. Impression: No change; no acute findings. Reported By:
[2017-12-18] MEDS: DUONEB 0.5 MG/3 MG NEB SCH (09:25)
[2017-12-18] MEDS: MUCOMYST 20% 200 MG/ML NEB SCH (09:25)
[2017-12-18] MEDS: VITAMIN D3 PO SCH (09:30)
[2017-12-18] MEDS ORDERED: NORVASC TAB 2.5 MG ONE (09:42)
[2017-12-18] MEDS: HEMOCYTE-PLUS PO SCH (09:58)
[2017-12-18] MEDS: PROTONIX TAB 40 MG PO SCH (09:58)
[2017-12-18] MEDS: BENTYL CAP 10 MG PO SCH (09:58)
[2017-12-18] MEDS: MICRO K EXTEN CAP 10 MEQ PO SCH (09:58)
[2017-12-18] MEDS: COLACE CAP 100 MG PO SCH (09:58)
[2017-12-18] MEDS: NORVASC TAB 2.5 MG PO SCH (09:59)
[2017-12-18] MEDS: COREG TAB 6.25 MG PO SCH (09:59)
[2017-12-18] MEDS: ZESTRIL TAB 10 MG PO SCH (10:00)
[2017-12-18] MEDS: CELEXA PO SCH (10:00)
[2017-12-18] MEDS: SYNTHROID 100 mcg TAB PO SCH (10:00)
[2017-12-18] MEDS: AMARYL TAB 4 MG PO SCH (10:00)
[2017-12-18] MEDS: PEPCID TAB 20 MG PO SCH (10:01)
[2017-12-18] MEDS: LASIX PO SCH (10:01)
[2017-12-18] MEDS: FORTAZ or TAZICEF INJ 1 GM in NS 100 ML IV + SPIKE MINIBAG* 100 ML IV SCH (10:03)
[2017-12-18] MEDS: ELIQUIS PO SCH (10:03)
[2017-12-18 10:23] VITALS: BP 122/62
== END 2017-12-18 12:40 | disposition home or self-care (01) ==
LOC: ER 09:20 → ICU 11:30
PROVIDERS: ADMIT Internal Medicine; ATTEND Internal Medicine
DX: R07.89 Other chest pain (principal); I51.7 Cardiomegaly; Z86.79 Personal history of other diseases of the circulatory system; Z95.0 Presence of cardiac pacemaker; I10 Essential (primary) hypertension; R94.31 Abnormal electrocardiogram [ECG] [EKG]; Z98.61 Coronary angioplasty status
CPT/HCPCS: 36415; 71045; 80053; 80061; 82550; 82553; 83735; 84484; 85025; 85610; 85730; 93005; 94640; 96365; 96374; 96375; 99217; 99218; 99284; A4222; S0181; G0378; J0713; J1956; J2270; J7608; J7620

== ENCOUNTER 2018-01-23 19:09 | Inpatient (IN) | payer OTHER ==
[2018-01-23 19:17] VITALS: BMI 27.4
[2018-01-23] MEDS ORDERED: ZOFRAN INJ 4 MG VIAL IVP ONE (22:16)
[2018-01-23] MEDS ORDERED: ZOFRAN INJ 4 MG VIAL ONE (22:17)
[2018-01-23] MEDS ORDERED: TORADOL 30 MG VIAL ONE (22:45)
[2018-01-23] MEDS ORDERED: TORADOL 30 MG VIAL IVP ONE (22:45)
[2018-01-23 23:00] LABS: BASOPHILS # (AUTO) 0.1 X10^3/uL (0.0-0.1); BASOPHILS % (AUTO) 0.8 % (0.2-1.0); EOSINOPHILS # (AUTO) 0.2 x10^3/uL (0.0-0.2); EOSINOPHILS % (AUTO) 1.7 % (0.9-2.9); HEMATOCRIT 36.9 % (36.0-47.0); HEMOGLOBIN 12.4 g/dL (12.0-16.0); LYMPHOCYTES # (AUTO) 3.1 X10^3/uL (1.3-2.9); LYMPHOCYTES % (AUTO) 33.2 % (21.0-51.0); MEAN CORPUSCULAR HEMOGLOBIN 30.2 pg (27.0-34.0); MEAN CORPUSCULAR HGB CONC 33.5 g/dL (33.0-35.0); MEAN PLATELET VOLUME 8.4 fL (7.4-11.0); MONOCYTES # (AUTO) 0.7 x10^3/uL (0.3-0.8); NEUTROPHILS # (AUTO) 5.2 x10^3/uL (2.2-4.8); NEUTROPHILS % (AUTO) 56.3 % (42.0-75.0); PLATELET COUNT 233 X10^3/uL (150.0-450.0); RED CELL DISTRIBUTION WIDTH 22.8 % (11.6-16.5); WHITE BLOOD COUNT 9.3 X10^3/uL (3.6-10.0)
[2018-01-23 23:08] LABS: ALANINE AMINOTRANSFERASE 19 Units/L (12-78); ALBUMIN 3.5 g/dL (3.4-5.0); ALKALINE PHOSPHATASE 72 Units/L (46-116); AMYLASE 40 Units/L (25-115); ASPARTATE AMINO TRANSFERASE 19 Units/L (15-37); BLOOD UREA NITROGEN 25 mg/dL (7-18); CALCIUM 8.5 mg/dL (8.5-10.1); CARBON DIOXIDE 28.9 mmol/L (21-32); CHLORIDE 106 mmol/L (98-107); CREATININE 1.78 mg/dL (0.55-1.02); LIPASE 154 Units/L (73-393); SODIUM 141 mmol/L (136-145); TOTAL PROTEIN 7.1 g/dL (6.4-8.2); eGFR BLACK RACES 35 (>60); eGFR NON BLACK RACES 29 (>60)
[2018-01-23 23:12] LABS: ANISOCYTOSIS 2+; PLATELET MORPHOLOGY COMMENT NORMAL (NORMAL)
[2018-01-24] MEDS ORDERED: NEURONTIN CAP 300 MG PO ONE (00:10)
--- NOTE | 2018-01-24 01:00 | CT ---
CT abdomen and pelvis without contrast Indication: Abdominal pain, history of diverticulitis Technique: Helical CT images of the abdomen and pelvis were obtained without IV contrast. Reformatted images in the coronal and sagittal planes were also generated for review. Comparison: 11/09/2017 Findings: Scattered areas of scarring and nodularity of the bilateral lung bases is unchanged since p rior exam. The visualized heart is mildly enlarged with advanced coronary atherosclerotic disease. Le ft hip arthroplasty is present without acute complication. No acute or aggressive osseous abnormality is identified. The gallbladder is surgically absent. Within the limits of a noncontrast exam, the liver, spleen, costello creas and adrenals are unremarkable. There is mild atrophy of the bilateral kidneys, which otherwise appear normal without radiopaque stones or hydroureteronephrosis. There are several loops of small bowel throughout the left abdomen which appear moderately thick wall ed, suggestive for enteritis. There is colonic diverticulosis without evidence for acute diverticulit is. Oral contrast is seen to the level of the splenic flexure without evidence of obstruction. The ap pendix is not identified. A fat containing periumbilical hernia is again noted without associated bowel loops. There is moderat e calcification of the aortoiliac system without aneurysm. The urinary bladder is normal. The patient is post hysterectomy. No free air, free fluid or lymphadenopathy is identified. Impression: Multiple loops of moderately thickened small bowel throughout the left abdomen, suggestive for enteri tis. Clinical correlation recommended. Please see above report for additional stable chronic findings. Reported By:
[2018-01-24] MEDS ORDERED: NS 1000 ML 1,000 ML IV ONE (01:08)
[2018-01-24] MEDS ORDERED: NS 1000 ML 1,000 ML ONE ×2 (01:09→03:23)
[2018-01-24] MEDS ORDERED: FLAGYL IV PREMIX 500 MG BAG 500 MG/100 ML BAG IV ONE ×3 (01:36→06:19)
--- NOTE | 2018-01-24 01:37 | ED.ABDFE ---
HPI - Time seen Time seen: 22:50 - PCP Primary Care Physician: EDUAR - HPI Comment HPI Comment: DECREASE URINE OUTPUT WITH WEAKNESS. NO VOMITING OR DIARRHEA. HAD 2 BM YESTERDAY. HISTORY OF DIVERTICULITIS. - Complaint Chief Complaint Doctors Comments: ABDOMINAL PAIN TIMES ONE DAY WITH NAUSEA. Chief Complaint:: DIFFUSE ABD PAIN SINCE YESTERDAY, NAUSEA. DENIES ANY DIARRHEA OR VOMITING. LAST BOWEL MOVEMENT YESTERDAY TIMES 2. - Nurses notes reviewed Nurses Notes Review: Yes - Source History Provided: Patient - Mode of arrival Mode of Arrival: Wheelchair - Timing Onset of Chief Complaint: 01/22/18 Came on: Suddenly - Duration Duration: Constant Duration: Days - Location Location: Diffuse - Severity Severity: Moderate - Quality Quality: Cramping - Context Onset: At Rest History of: None - Modifying Worsening Factors: Nothing Improving Factors: Nothing - Associated signs and symptoms Associated Signs and Symptoms: Nausea PMH - PMH Past Medical History: Yes Past Medical History: Anemia, Arthritis, CHF, Coronary Artery Disease, Diabetes , Dyslipidemia, GERD, Hypertension, Hypothyroidism, Kidney Stones Past Medical History Comment: COLON CANCER, DIVERTICULITIS Past Surgical History: Yes Surgical History: Abdominal Surgery, Appendectomy, Bowel Resection, Cholecystectomy, Hysterectomy, Ortho Surgery, Tonsillectomy, Other - Family History History of Family Medical Conditions: Yes Family Medical History: Diabetes Mellitus, [place], Hypertension - Social History Does patient currently use any type of tobacco product: No Have you used tobacco products in the last 12 months: No Type of Tobacco Use: None Does any household member use tobacco: No Alcohol Use: None Do you use any recreational Drugs:: No Lives With: Spouse Lives Where: Home - infectious screening Have you traveled outside the country in the last 6 months?: No Isolation: Standard ROS - Review of Systems Constitutional: Weakness, Fatigue. negative: Chills, Fever Eyes: No Symptoms Reported. negative: Eye Pain, Discharge ENTM: No Symptoms Reported. negative: Ear Pain, Nose Discharge, Nose Congestion , Throat Pain Respiratoy: Short of Breath (ON EXERTION). negative: Productive Cough, Non- Productive Cough, Wheezing, Hemoptysis Cardiovascular: negative: Chest Pain Gastrointestinal/Abdominal: Abdominal Pain, Nausea Genitourinary: negative: Dysuria, Hematuria Neurological: Weakness Musculoskeletal: Muscle Pain Integumentary: No Symptoms Reported Hematologic/Lymphatic: Easy Bleeding, Easy Bruising Endocrine: No Symptoms Reported All Other Systems: Reviewed and Negative PE - Vital Signs Vitals: Temperature 98.2 F Pulse Rate [Left Brachial] 65 Pulse Rate 80 Respiratory Rate 24 Blood Pressure [Left Calf] 149/72 Blood Pressure [Right Arm] 122/62 Blood Pressure [Left Arm] 139/64 Blood Pressure 117/75 O2 Sat by Pulse Oximetry 96 - General Limitations: No Limitations General Appearance: Alert - Head Head Exam: Normal Inspection - Eyes Eye exam: Normal Appearance - ENT ENT Exam: Normal External Ear Exam - Neck Neck Exam: Trachea Midline - Chest Chest Inspection: Symmetric Chest Wall Rise - Respiratory Respiratory Exam: Normal Lung Sounds Bilat Respiratory Exam: Bilateral Rhonchi, Lower Rhonchi - Cardiovascular Cardiovascular Exam: Regular Rate, Normal Rhythm, Normal Heart Sounds - Abdominal Exam Abdominal Exam: Normal Bowel Sounds, Soft, Tenderness Abdominal Tenderness: LLQ - Rectal Rectal Exam: Deferred - Back Back Exam: Paraspinal Tenderness - Extremeties Extremities Exam: Normal Inspection - External Exam: Female: Deferred : Speculum Exam (Female): Deferred : Bimanual Exam (female): Deferred - Neurologic Neurological Exam: Alert, Oriented X3 - Psychiatric Psychiatric Exam: Normal Affect, Normal Mood - Skin Skin Exam: Erythema MDM - Additional Information Obtained From Additional information provided by: Family - Differential Diagnosis Differential Diagnosis- Considerations may include:: Diverticular disease, Gastritus/PUD, Gastroenteritis, Inflammatory BD, Ischemic Bowel, Pancreatitis, Urinary tract infection, Urolithiasis Other differential diagnosis: ABDOMINAL PAIN Course - Treatment Treatment: SEE ORDERS. - Education/Counseling Education/Counseling: Patient, Family, Education Educated On: Treatment, Diagnosis, Needs for Follow Up ROR - Labs Reviewed Laboratory Results Reviewed?: Yes Result Diagrams: 01/23/18 22:47 01/23/18 22:47 Laboratory: WBC 9.3 X10^3/uL (3.6-10.0) 01/23/18 22:47 RBC 4.10 X10^6/uL (3.5-5.4) 01/23/18 22:47 Hgb 12.4 g/dL (12.0-16.0) 01/23/18 22:47 Hct 36.9 % (36.0-47.0) 01/23/18 22:47 MCV 90.0 fL (80.0-100.0) 01/23/18 22:47 MCH 30.2 pg (27.0-34.0) 01/23/18 22:47 MCHC 33.5 g/dL (33.0-35.0) 01/23/18 22:47 RDW 22.8 % (11.6-16.5) H 01/23/18 22:47 Plt Count 233 X10^3/uL (150.0-450.0) 01/23/18 22:47 Plt Count Comment Adequate (ADEQUATE) 01/23/18 22:47 MPV 8.4 fL (7.4-11.0) 01/23/18 22:47 Neut % (Auto) 56.3 % (42.0-75.0) 01/23/18 22:47 Lymph % (Auto) 33.2 % (21.0-51.0) 01/23/18 22:47 [place] % (Auto) 8.0 % (0.0-13.0) 01/23/18 22:47 Eos % (Auto) 1.7 % (0.9-2.9) 01/23/18 22:47 Baso % (Auto) 0.8 % (0.2-1.0) 01/23/18 22:47 Neut # (Auto) 5.2 x10^3/uL (2.2-4.8) H 01/23/18 22:47 Lymph # (Auto) 3.1 X10^3/uL (1.3-2.9) H 01/23/18 22:47 [place] # (Auto) 0.7 x10^3/uL (0.3-0.8) 01/23/18 22:47 Eos # (Auto) 0.2 x10^3/uL (0.0-0.2) 01/23/18 22:47 Baso # (Auto) 0.1 X10^3/uL (0.0-0.1) 01/23/18 22:47 Absolute Nucleated RBC 0.0 /100WBC 01/23/18 22:47 Plt Morphology Comment Normal (NORMAL) 01/23/18 22:47 RBC Morphology Abnormal (NORMAL) A 01/23/18 22:47 Anisocytosis 2+ A 01/23/18 22:47 Sodium 141 mmol/L (136-145) 01/23/18 22:47 Corrected Sodium TNP 03/19/18 22:47 Potassium 4.6 mmol/L (3.5-5.1) 01/23/18 22:47 Chloride 106 mmol/L (98-107) 01/23/18 22:47 Carbon Dioxide 28.9 mmol/L (21-32) 01/23/18 22:47 BUN 25 mg/dL (7-18) H 01/23/18 22:47 Creatinine 1.78 mg/dL (0.55-1.02) H 01/23/18 22:47 Est GFR (MDRD) Af Amer 35 (>60) L 01/23/18 22:47 Est GFR (MDRD) Non-Af 29 (>60) L 01/23/18 22:47 Glucose 109 mg/dL (65-99) H 01/23/18 22:47 Calcium 8.5 mg/dL (8.5-10.1) 01/23/18 22:47 Corrected Calcium TNP 01/23/18 22:47 Total Bilirubin 0.20 mg/dL (0.2-1.0) 01/23/18 22:47 AST 19 Units/L (15-37) 01/23/18 22:47 ALT 19 Units/L (12-78) 01/23/18 22:47 Alkaline Phosphatase 72 Units/L (46-116) 01/23/18 22:47 Total Protein 7.1 g/dL (6.4-8.2) 01/23/18 22:47 Albumin 3.5 g/dL (3.4-5.0) 01/23/18 22:47 Globulin 3.6 g/dL (2.5-4.5) 01/23/18 22:47 Albumin/Globulin Ratio 1.0 Ratio (1.1-2.1) L 01/23/18 22:47 Amylase 40 Units/L (25-115) 01/23/18 22:47 Lipase 154 Units/L (73-393) 01/23/18 22:47 - XRAY XRAY Findings: REPORT DISCUSS WITH PATIENT. - Diagnosis Discharge Problem: Enteritis, Dehydration Abdominal pain Qualifiers: Abdominal location: generalized Qualified Code(s): R10.84 - Generalized abdominal pain - Discharge Plan Disposition: ADMITTED INPATIENT Condition: Stable - Follow ups/Referrals - Instructions
[2018-01-24] MEDS ORDERED: MORPHINE SULFATE INJ 2 MG INJ IVP ONE (02:59)
[2018-01-24] MEDS ORDERED: MORPHINE SULFATE INJ 2 MG INJ ONE (02:59)
[2018-01-24] MEDS ORDERED: CIPRO IV 200 MG PREMIX* 200 MG/100 ML BAG IV ONE ×3 (03:03→06:19)
[2018-01-24] MEDS: NS 1000 ML 1,000 ML IV SCH ×3 (03:26→17:04)
[2018-01-24] MEDS ORDERED: TYLENOL 325 MG TAB PO PRN (06:12)
[2018-01-24] MEDS ORDERED: PEPCID 20 MG IV PREMIX* 20 MG/50 ML BAG IV PRN (06:12)
[2018-01-24 06:58] LABS: BILIRUBIN,URINE NEGATIVE (NEGATIVE); BLOOD/HEMOGLOBIN,URINE NEGATIVE (NEGATIVE); GLUCOSE, URINE NEGATIVE (NEGATIVE); KETONES,URINE NEGATIVE (NEGATIVE); LEUKOCYTE ESTERASE ,URINE NEGATIVE (NEGATIVE); NITRITES,URINE NEGATIVE (NEGATIVE); PROTEIN,URINE NEGATIVE (NEGATIVE); UROBILINOGEN,URINE NORMAL (NORMAL)
[2018-01-24 06:59] LABS: APPEARANCE,URINE CLEAR (CLEAR); COLOR,URINE YELLOW (YELLOW)
[2018-01-24] MEDS ORDERED: CATAPRES-TTS-2 TD SCH (07:00)
[2018-01-24 07:04] LABS: BACTERIA,URINE NEGATIVE /HPF (NEGATIVE); RBC,URINE 0-1 /HPF (NONE SEEN); SQUAMOUS EPITHELIAL CELL,UR RARE /HPF (NEGATIVE)
[2018-01-24] MEDS: COLACE CAP 100 MG PO SCH ×2 (08:19→20:09)
[2018-01-24] MEDS: FLAGYL IV PREMIX 500 MG BAG 500 MG/100 ML BAG IV SCH ×3 (08:19→20:08)
[2018-01-24] MEDS: ELIQUIS PO SCH ×2 (08:19→20:09)
[2018-01-24] MEDS: CELEXA PO SCH (08:19)
[2018-01-24] MEDS: COREG TAB 6.25 MG PO SCH ×2 (08:19→20:08)
[2018-01-24] MEDS: NORVASC TAB 5 MG PO SCH (08:19)
[2018-01-24] MEDS: MICRO K EXTEN CAP 10 MEQ PO SCH ×4 (08:19→20:08)
[2018-01-24] MEDS: VITAMIN D3 PO SCH (08:20)
[2018-01-24] MEDS: MORPHINE SULFATE INJ 2 MG INJ IVP PRN ×3 (08:45→20:18)
[2018-01-24] MEDS ORDERED: PATIENT'S HOME MEDICATION (Apixaban [Eliquis] 2.5 MG) PO SCH (09:00)
[2018-01-24] MEDS ORDERED: PATIENT'S HOME MEDICATION (Potassium Chloride [Potassium Chloride] 10 MEQ) PO SCH (09:00)
[2018-01-24] MEDS ORDERED: PEPCID TAB 20 MG PO SCH (09:00)
[2018-01-24] MEDS ORDERED: PROTONIX TAB 40 MG PO SCH (09:00)
[2018-01-24] MEDS: PEPCID 20 MG IV PREMIX* 20 MG/50 ML BAG IV SCH (11:36)
[2018-01-24] MEDS: SYNTHROID 100 mcg TAB PO SCH ×2 (11:38→16:33)
[2018-01-24] MEDS: PROTONIX INJ 40 MG VIAL IVP SCH ×2 (11:39→20:08)
[2018-01-24] MEDS ORDERED: PATIENT'S HOME MEDICATION (Cholecalciferol (Vitamin D3) [Vitamin D3] 2,000 UNIT) PO SCH (12:00)
[2018-01-24] MEDS: NEURONTIN CAP 300 MG PO SCH ×3 (13:02→21:30)
[2018-01-24] MEDS: SINEMET (PLAIN) 25/250 MG PO SCH ×2 (13:03→21:29)
[2018-01-24] MEDS ORDERED: LEVODOPA PO SCH (14:00)
[2018-01-24] MEDS ORDERED: CARBIDOPA PO SCH (14:00)
[2018-01-24] MEDS: ARICEPT TAB 10 MG PO SCH (20:09)
[2018-01-24] MEDS: LIPITOR TAB 10 MG PO SCH (20:10)
[2018-01-24] MEDS ORDERED: ROPINIROLE HCL 2 MG PO SCH (21:00)
[2018-01-24] MEDS: KLONOPIN TAB 0.5 MG PO PRN (21:29)
[2018-01-24] MEDS: REQUIP PO SCH (21:30)
[2018-01-25] MEDS: FLAGYL IV PREMIX 500 MG BAG 500 MG/100 ML BAG IV SCH ×4 (02:02→20:57)
[2018-01-25] MEDS: CIPRO IV 200 MG PREMIX* 200 MG/100 ML BAG IV SCH (05:17)
[2018-01-25] MEDS: NEURONTIN CAP 300 MG PO SCH ×3 (05:17→21:00)
[2018-01-25] MEDS: SINEMET (PLAIN) 25/250 MG PO SCH ×3 (05:17→21:01)
[2018-01-25 05:31] LABS: BASOPHILS % (AUTO) 0.7 % (0.2-1.0); EOSINOPHILS # (AUTO) 0.2 x10^3/uL (0.0-0.2); EOSINOPHILS % (AUTO) 2.3 % (0.9-2.9); HEMATOCRIT 33.7 % (36.0-47.0); HEMOGLOBIN 11.3 g/dL (12.0-16.0); LYMPHOCYTES # (AUTO) 2.1 X10^3/uL (1.3-2.9); LYMPHOCYTES % (AUTO) 30.9 % (21.0-51.0); MEAN CORPUSCULAR HEMOGLOBIN 30.3 pg (27.0-34.0); MEAN CORPUSCULAR HGB CONC 33.5 g/dL (33.0-35.0); MEAN CORPUSCULAR VOLUME 90.4 fL (80.0-100.0); MEAN PLATELET VOLUME 8.5 fL (7.4-11.0); MONOCYTES # (AUTO) 0.5 x10^3/uL (0.3-0.8); NEUTROPHILS # (AUTO) 3.9 x10^3/uL (2.2-4.8); NEUTROPHILS % (AUTO) 58.1 % (42.0-75.0); PLATELET COUNT 214 X10^3/uL (150.0-450.0); RED BLOOD COUNT 3.73 X10^6/uL (3.5-5.4); RED CELL DISTRIBUTION WIDTH 22.2 % (11.6-16.5); WHITE BLOOD COUNT 6.7 X10^3/uL (3.6-10.0)
[2018-01-25 05:37] LABS: ALANINE AMINOTRANSFERASE 9 Units/L (12-78); ALKALINE PHOSPHATASE 62 Units/L (46-116); AMYLASE 31 Units/L (25-115); ASPARTATE AMINO TRANSFERASE 22 Units/L (15-37); BLOOD UREA NITROGEN 19 mg/dL (7-18); CALCIUM 8.1 mg/dL (8.5-10.1); CARBON DIOXIDE 27.2 mmol/L (21-32); CHLORIDE 107 mmol/L (98-107); COR CA(FOR HYPOALB) 8.9 mg/dL (8.5-10.1); CREATININE 1.41 mg/dL (0.55-1.02); LIPASE 93 Units/L (73-393); SODIUM 141 mmol/L (136-145); TOTAL PROTEIN 6.3 g/dL (6.4-8.2); eGFR BLACK RACES 46 (>60); eGFR NON BLACK RACES 38 (>60)
[2018-01-25 06:04] LABS: ANISOCYTOSIS 2+; PLATELET MORPHOLOGY COMMENT NORMAL (NORMAL)
[2018-01-25] MEDS: ZOFRAN INJ 4 MG VIAL IVP PRN ×2 (07:29→20:05)
[2018-01-25] MEDS: MORPHINE SULFATE INJ 2 MG INJ IVP PRN ×2 (07:48→12:16)
[2018-01-25] MEDS: VITAMIN D3 PO SCH (08:39)
[2018-01-25] MEDS: PROTONIX INJ 40 MG VIAL IVP SCH ×2 (08:39→20:51)
[2018-01-25] MEDS: COLACE CAP 100 MG PO SCH ×2 (08:39→20:54)
[2018-01-25] MEDS: NORVASC TAB 5 MG PO SCH (08:39)
[2018-01-25] MEDS: CELEXA PO SCH (08:39)
[2018-01-25] MEDS: MICRO K EXTEN CAP 10 MEQ PO SCH ×4 (08:39→20:54)
[2018-01-25] MEDS: PEPCID 20 MG IV PREMIX* 20 MG/50 ML BAG IV SCH (08:39)
[2018-01-25] MEDS: ELIQUIS PO SCH ×2 (08:40→20:53)
[2018-01-25] MEDS: COREG TAB 6.25 MG PO SCH ×2 (08:42→20:53)
[2018-01-25] MEDS ORDERED: MIRALAX POWDER (1 DOSE 17GM) PO PRN (10:02)
[2018-01-25] MEDS ORDERED: BENTYL CAP 10 MG PO PRN (10:02)
[2018-01-25] MEDS ORDERED: PATIENT'S HOME MEDICATION (Glimepiride [Glimepiride 2 Mg] 2 MG) PO SCH (10:15)
[2018-01-25] MEDS: NS 1000 ML 1,000 ML IV SCH ×2 (10:55→21:53)
[2018-01-25] MEDS: SNACK - Diabetic Appropriate PO SCH ×2 (10:56→20:35)
[2018-01-25] MEDS: AMARYL TAB 4 MG PO SCH ×2 (11:34→20:54)
[2018-01-25] MEDS: HEMOCYTE-PLUS PO SCH (11:34)
[2018-01-25] MEDS: ZESTRIL TAB 10 MG PO SCH (11:35)
[2018-01-25] MEDS: MEGACE PO SCH ×2 (11:35→20:52)
[2018-01-25] MEDS: SYNTHROID 100 mcg TAB PO SCH (16:24)
--- NOTE | 2018-01-25 19:08 | DR.H&P ---
H&P - History & Physical for Day of: H&P Date: 01/24/18 - Chief Complaint Chief Complaint: ABDOMINAL PAIN, WEAKNESS - Allergies Allergies/Adverse Reactions: Allergies Allergy/AdvReac Type Severity Reaction Status Date / Time ADHESIVE TAPE Allergy Uncoded 01/23/18 19:17 - History of Present Illness History of Present Illness: IS A 82 YEAR OLD PATIENT OF OURS WHO PRESENTED TO THE EMERGENCY ROOM WITH ABDOMINAL PAIN AND NAUSEA X 1 DAY. PATIENT DESCRIBES PAIN DIFFUSE AND CRAMPING. SHE DENIES DIARRHEA OR VOMITING. SHE REPORTS THAT HER LAST BOWEL MOVEMENT WAS YESTERDAY. ASSOSICATED SYMPTOMS INCLUDE GENERALIZED WEAKNESS, DECREASED URINE OUTPUT, AND FATIGUE. ON ARRIVAL TO THE ER, VITALS WERE 98.2, 80, 16, 96% RA, 117/75. LABS WERE OBTAINED. ABNORMAL LAB VALUES INCLUDE THE FOLLOWING: RDW 22.8, BUN 25, Creatinine 1.78, GFR af 35, GFR non 29, Glucose 109, A/G Ratio 1.0. URINALYSIS UNREMARKABLE. AN ABDOMEN/PELVIS CT WAS OBTAINED AND REPORTED Multiple loops of moderately thickened small bowel throughout of left abdomen, suggestive for enteritis. Clinical correlation recommended. Please see above report for additional stable chronic findings. SHE WAS GIVEN MORPHINE 2MG IV X 1 DOSE, A NORMAL SALINE BOLUS , AND STARTED ON CIPRO AND FLAGYL IV. SHE WAS ADMITTED TO THE HOSPITAL FOR FURTHER TREATMENT AND EVALUATION. WE PLAN TO FOLLOW UP WITH AM LABS AND CONTINUE TO MONITOR PATIENT. - Past Medical History Past Medical History: Anemia, Arthritis, CHF, Coronary Artery Disease, Diabetes , Dyslipidemia, GERD, Hypertension, Hypothyroidism, Kidney Stones Additional Medical History: Vision Deficit, Parkinson's Disease, Atrial Fibrillation, Bronchitis, Pneumonia, Constipation, Diarrhea, Colon Cancer, Breast Cancer, Urinary Tract Infections, Muscle Weakness, Back Pain, Neuropathy , Previous Blood Transfusion - Past Surgical History Surgical History: Abdominal Surgery, Appendectomy, Bowel Resection, Cholecystectomy, Hysterectomy, Ortho Surgery, Tonsillectomy Additional Surgical History: Pacemaker, Two Colon Resection's for Colon Cancer, Left Partial Mastectomy for Breast Cancer, Right Chest Wall Port a cath, Left PAU - Family History Family Medical History: Diabetes Mellitus, [place], Hypertension - Social History Does patient currently use any type of tobacco product: No Have you used tobacco products in the last 12 months: No Type of Tobacco Use: None Does any household member use tobacco: No Alcohol Use: None Drug Use: Prescription Drugs - Medications Home Medications: Apixaban [Eliquis] 2.5 mg PO BID 01/24/18 [History Confirmed 01/24/18] Clonazepam [Klonopin Tab 0.5 mg] 0.5 mg PO HS PRN 01/24/18 [History Confirmed ] Clonidine HCl [Wlbosvnd-Nlh-5] 1 each TD WEEKLY 01/24/18 [History Confirmed ] Docusate Sodium [Colace] 100 mg PO BID 01/24/18 [History Confirmed 01/24/18] Fluticasone Nasal [place] [FLONASE NASAL SPRAY *] 1 spray ENOSTRIL HS 01/24/18 [ History Confirmed 01/24/18] Hydrocodone-Acet 7.5 mg/325 mg [[place] 7.5/325 mg Tab] 1 tab PO HS 01/24/18 [ History Confirmed 01/24/18] Hydrocodone-Acet 7.5 mg/325 mg [[place] 7.5/325 mg Tab] 1 tab PO Q8H PRN 01/24/18 [History Confirmed 01/24/18] Megestrol Acetate [Megace] 40 mg PO BID PRN 01/24/18 [History Confirmed 01/24/18 ] Ondansetron HCl [Zofran Tab 4 mg] 4 mg PO Q8H PRN 01/24/18 [History Confirmed ] Polyethylene Glycol 3350 [Miralax] 17 gm PO HS PRN 01/24/18 [History Confirmed 01/24/18] - Review of Systems Constitutional: Weakness, Malaise Eyes: No Symptoms Reported ENT: No Symptoms Reported Respiratory: SOB with Excertion Cardiovascular: denies: Chest Pain, Edema, Light Headedness Gastrointestinal: See HPI, Nausea, Abdominal Pain. denies: Vomiting, Diarrhea Genitourinary: Other (DECREASED URINE OUTPUT ) Musculoskeletal: No Symptoms Reported Skin: No Symptoms Reported Neurological: Weakness - Physical Exam Vital Signs: Temperature 97.8 F Pulse Rate [Left Brachial] 61 Pulse Rate 80 Respiratory Rate 17 Blood Pressure [Left Calf] 149/72 Blood Pressure [Right Arm] 122/62 Blood Pressure [Left Arm] 175/87 Blood Pressure 117/75 O2 Sat by Pulse Oximetry 94 Oriented: Normal Eyes: Normal Ear: Normal Nose: Normal Throat: Normal Respiratory: RLL Rhonchi, LLL Rhonchi Cardiovascular: Normal. negative: S3, S4, Murmur, Edema : Normal Auscultation: Bowel Sounds: Normal Palpation: Normal Tenderness: Diffuse, Moderate. negative: Rebound, Guarding, Rigidity Skin: Normal Musculoskeletal: Normal Psychiatric: Normal Mood Description: Calm Affect: Normal Speech Pattern: Clear - Assessment/Plan (1) Enteritis Status: Acute Plan: CIPRO IV, FLAGYL IV, PEPCID, PROTONIX, CONTINUE TO MONITOR (2) Abdominal pain Qualifiers: Abdominal location: generalized Qualified Code(s): R10.84 - Generalized abdominal pain Status: Acute Plan: PEPCID IV, PROTONIX IV, MORPHINE 2MG IV Q4H PRN, CONTINUE TO MONITOR (3) Dehydration Status: Acute Plan: NORMAL SALINE AT 50ML/HR, CONTINUE TO MONITOR
[2018-01-25] MEDS: NORCO 7.5/325 MG TAB PO PRN (19:33)
[2018-01-25] MEDS ORDERED: NS 100 ML IV + SPIKE MINIBAG* 100 ML IV ONE (20:19)
[2018-01-25] MEDS: NORCO 7.5/325 MG TAB PO SCH (20:35)
[2018-01-25] MEDS: LIPITOR TAB 10 MG PO SCH (20:52)
[2018-01-25] MEDS: KLONOPIN TAB 0.5 MG PO PRN (20:53)
[2018-01-25] MEDS: ARICEPT TAB 10 MG PO SCH (20:57)
[2018-01-25] MEDS: FLONASE NASAL SPRAY ENOSTRIL SCH (20:57)
[2018-01-25] MEDS: REQUIP PO SCH (20:58)
[2018-01-26] MEDS: MORPHINE SULFATE INJ 2 MG INJ IVP PRN ×2 (03:21→22:09)
[2018-01-26] MEDS: FLAGYL IV PREMIX 500 MG BAG 500 MG/100 ML BAG IV SCH ×4 (03:22→21:13)
[2018-01-26] MEDS: SINEMET (PLAIN) 25/250 MG PO SCH ×3 (05:30→21:14)
[2018-01-26] MEDS: NEURONTIN CAP 300 MG PO SCH ×3 (05:30→21:15)
[2018-01-26] MEDS: CIPRO IV 200 MG PREMIX* 200 MG/100 ML BAG IV SCH (05:30)
[2018-01-26 05:53] LABS: ALANINE AMINOTRANSFERASE 10 Units/L (12-78); ALBUMIN 2.9 g/dL (3.4-5.0); ALKALINE PHOSPHATASE 58 Units/L (46-116); ASPARTATE AMINO TRANSFERASE 18 Units/L (15-37); BLOOD UREA NITROGEN 20 mg/dL (7-18); CARBON DIOXIDE 26.1 mmol/L (21-32); CHLORIDE 107 mmol/L (98-107); COR CA(FOR HYPOALB) 8.9 mg/dL (8.5-10.1); CREATININE 1.37 mg/dL (0.55-1.02); SODIUM 141 mmol/L (136-145); eGFR BLACK RACES 47 (>60); eGFR NON BLACK RACES 39 (>60)
[2018-01-26 06:04] LABS: BASOPHILS % (AUTO) 0.6 % (0.2-1.0); EOSINOPHILS # (AUTO) 0.1 x10^3/uL (0.0-0.2); EOSINOPHILS % (AUTO) 2.2 % (0.9-2.9); HEMOGLOBIN 11.1 g/dL (12.0-16.0); LYMPHOCYTES # (AUTO) 2.2 X10^3/uL (1.3-2.9); LYMPHOCYTES % (AUTO) 32.4 % (21.0-51.0); MEAN CORPUSCULAR HEMOGLOBIN 30.4 pg (27.0-34.0); MEAN CORPUSCULAR HGB CONC 33.6 g/dL (33.0-35.0); MEAN CORPUSCULAR VOLUME 90.6 fL (80.0-100.0); MEAN PLATELET VOLUME 8.5 fL (7.4-11.0); MONOCYTES # (AUTO) 0.6 x10^3/uL (0.3-0.8); MONOCYTES % (AUTO) 9.3 % (0.0-13.0); NEUTROPHILS # (AUTO) 3.7 x10^3/uL (2.2-4.8); NEUTROPHILS % (AUTO) 55.5 % (42.0-75.0); PLATELET COUNT 186 X10^3/uL (150.0-450.0); RED BLOOD COUNT 3.64 X10^6/uL (3.5-5.4); RED CELL DISTRIBUTION WIDTH 21.8 % (11.6-16.5); WHITE BLOOD COUNT 6.7 X10^3/uL (3.6-10.0)
[2018-01-26 06:26] LABS: ANISOCYTOSIS 1+; PLATELET MORPHOLOGY COMMENT NORMAL (NORMAL)
[2018-01-26] MEDS ORDERED: MILK OF MAGNESIA PO PRN (07:18)
[2018-01-26] MEDS: MICRO K EXTEN CAP 10 MEQ PO SCH ×4 (09:00→21:16)
[2018-01-26] MEDS: PEPCID 20 MG IV PREMIX* 20 MG/50 ML BAG IV SCH (09:18)
[2018-01-26] MEDS: COLACE CAP 100 MG PO SCH ×2 (09:20→21:13)
[2018-01-26] MEDS: VITAMIN D3 PO SCH (09:20)
[2018-01-26] MEDS: HEMOCYTE-PLUS PO SCH (09:22)
[2018-01-26] MEDS: ZESTRIL TAB 10 MG PO SCH (09:22)
[2018-01-26] MEDS: MEGACE PO SCH ×2 (09:22→21:15)
[2018-01-26] MEDS: COREG TAB 6.25 MG PO SCH ×2 (09:22→21:16)
[2018-01-26] MEDS: NORVASC TAB 5 MG PO SCH (09:22)
[2018-01-26] MEDS: PROTONIX INJ 40 MG VIAL IVP SCH ×2 (09:23→21:16)
[2018-01-26] MEDS: AMARYL TAB 4 MG PO SCH ×2 (09:23→21:14)
[2018-01-26] MEDS: CELEXA PO SCH (09:23)
[2018-01-26] MEDS: ELIQUIS PO SCH ×2 (09:24→21:15)
--- NOTE | 2018-01-26 11:23 | PCM.PROG ---
Progress Note - Progress Note for Day of Date: 01/25/18 - Subjective Subjective: IS BEING TREATED FOR ABDOMINAL PAIN, ENTERITIS, AND DEHYDRATION. TODAY, SHE IS ALERT AND ORIENTED, SITTING UP IN BED ON MORNING ROUNDS. SPOUSE IS AT BEDSIDE. SHE CONTINUES WITH COMPLAINTS OF MILD, DIFFUSE ABDOMINAL PAIN AND GENERALIZED WEAKNESS. SHE CONTINUES TO REPORT NAUSEA AT TIMES , BUT DENIES VOMITING. ON EXAMINATION, HEART IS REGULAR IN RATE AND RHYTHM. BILATERAL LUNG SOUNDS ARE DIMINISHED THROUGHOUT. ABDOMEN IS ROUND, SOFT, AND NOTED WITH MILD, DIFFUSE TENDERNESS ON PALPATION. HYPERACTIVE BOWEL SOUNDS ARE NOTED IN ALL QUADRANTS. THERE IS NORMAL RANGE OF MOTION TO ALL EXTREMITIES. HER VITALS THIS MORNING ARE 97.7-71-20-92% RA, 169/89. LABS WERE OBTAINED. ABNORMAL LAB VALUES INCLUDE THE FOLLOWING: HGB 11.3, HCT 33.7, BUN 19, CREATININE 1.41, GLUCOSE 109, CALCIUM 8.1, ALT 9, TOTAL PROTEIN 6.3, ALBUMIN 3.0. TODAY, WE WILL CONTINUE IV FLUIDS, CIPRO AND FLAGYL IV, AND MORPHINE AND ZOFRAN PRN FOR PAIN AND NAUSEA. OTHERWISE, WE PLAN TO FOLLOW UP WITH AM LABS AND CONTINUE TO MONITOR PATIENT. - Past Medical Family Social History Past Med/Fam/Surg Hx: No changes since H&P Allergies: Allergies ADHESIVE TAPE Allergy (Uncoded 01/23/18 19:17) - Review of Systems ROS: No change since H&P - Vital Signs and I&O's Vital Signs: Temperature 98.3 F Pulse Rate [Left Brachial] 70 Pulse Rate 80 Respiratory Rate 15 Blood Pressure [Left Calf] 149/72 Blood Pressure [Right Arm] 122/62 Blood Pressure [Left Arm] 186/84 Blood Pressure 117/75 O2 Sat by Pulse Oximetry 94 Intake and Output: Intake & Output 01/23/18 01/24/18 01/25/18 01/26/18 11:59 11:59 11:59 11:59 Intake Total 1890 1100 Output Total 3100 2300 Balance -1210 -1200 - Physical Exam Oriented: Normal Eyes: Normal Ear: Normal Nose: Normal Throat: Normal Respiratory: Right, Left, Generalized, Diminished Cardiovascular: Normal. negative: S3, S4, Murmur, Edema : Normal Auscultation: Bowel Sounds: Increased Palpation: Normal Tenderness: Diffuse, Mild. negative: Rebound, Guarding, Rigidity Skin: Normal Musculoskeletal: Normal Psychiatric: Normal Mood Description: Calm Affect: Normal Speech Pattern: Clear, Appropriate - Laboratory and Diagnostics Result Diagrams: 01/26/18 04:10 01/26/18 04:10 Labs: Laboratory WBC 6.7 X10^3/uL (3.6-10.0) 01/26/18 04:10 RBC 3.64 X10^6/uL (3.5-5.4) 01/26/18 04:10 Hgb 11.1 g/dL (12.0-16.0) L 01/26/18 04:10 Hct 33.0 % (36.0-47.0) L 01/26/18 04:10 MCV 90.6 fL (80.0-100.0) 01/26/18 04:10 MCH 30.4 pg (27.0-34.0) 01/26/18 04:10 MCHC 33.6 g/dL (33.0-35.0) 01/26/18 04:10 RDW 21.8 % (11.6-16.5) H 01/26/18 04:10 Plt Count 186 X10^3/uL (150.0-450.0) 01/26/18 04:10 Plt Count Comment Adequate (ADEQUATE) 01/26/18 04:10 MPV 8.5 fL (7.4-11.0) 01/26/18 04:10 Neut % (Auto) 55.5 % (42.0-75.0) 01/26/18 04:10 Lymph % (Auto) 32.4 % (21.0-51.0) 01/26/18 04:10 [place] % (Auto) 9.3 % (0.0-13.0) 01/26/18 04:10 Eos % (Auto) 2.2 % (0.9-2.9) 01/26/18 04:10 Baso % (Auto) 0.6 % (0.2-1.0) 01/26/18 04:10 Neut # (Auto) 3.7 x10^3/uL (2.2-4.8) 01/26/18 04:10 Lymph # (Auto) 2.2 X10^3/uL (1.3-2.9) 01/26/18 04:10 [place] # (Auto) 0.6 x10^3/uL (0.3-0.8) 01/26/18 04:10 Eos # (Auto) 0.1 x10^3/uL (0.0-0.2) 01/26/18 04:10 Baso # (Auto) 0.0 X10^3/uL (0.0-0.1) 01/26/18 04:10 Absolute Nucleated RBC 0.1 /100WBC 01/26/18 04:10 Plt Morphology Comment Normal (NORMAL) 01/26/18 04:10 RBC Morphology Abnormal (NORMAL) A 01/26/18 04:10 Anisocytosis 1+ A 01/26/18 04:10 Sodium 141 mmol/L (136-145) 01/26/18 04:10 Corrected Sodium TNP 01/26/18 04:10 Potassium 4.3 mmol/L (3.5-5.1) 01/26/18 04:10 Chloride 107 mmol/L (98-107) 01/26/18 04:10 Carbon Dioxide 26.1 mmol/L (21-32) 01/26/18 04:10 BUN 20 mg/dL (7-18) H 01/26/18 04:10 Creatinine 1.37 mg/dL (0.55-1.02) H 01/26/18 04:10 Est GFR (MDRD) Af Amer 47 (>60) L 01/26/18 04:10 Est GFR (MDRD) Non-Af 39 (>60) L 01/26/18 04:10 Glucose 108 mg/dL (65-99) H 01/26/18 04:10 POC Glucose (mg/dL) 178 mg/dL (65-99) H 01/26/18 10:55 Calcium 8.0 mg/dL (8.5-10.1) L 01/26/18 04:10 Corrected Calcium 8.9 mg/dL (8.5-10.1) 01/26/18 04:10 Total Bilirubin 0.20 mg/dL (0.2-1.0) 01/26/18 04:10 AST 18 Units/L (15-37) 01/26/18 04:10 ALT 10 Units/L (12-78) L 01/26/18 04:10 Alkaline Phosphatase 58 Units/L (46-116) 01/26/18 04:10 Total Protein 6.0 g/dL (6.4-8.2) L 01/26/18 04:10 Albumin 2.9 g/dL (3.4-5.0) L 01/26/18 04:10 Globulin 3.1 g/dL (2.5-4.5) 01/26/18 04:10 Albumin/Globulin Ratio 0.9 Ratio (1.1-2.1) L 01/26/18 04:10 Amylase 31 Units/L (25-115) 01/25/18 04:30 Lipase 93 Units/L (73-393) 01/25/18 04:30 Specimen Type Catherized urine 01/24/18 06:43 Urine Color Yellow (YELLOW) 01/24/18 06:43 Urine Appearance Clear (CLEAR) 01/24/18 06:43 Urine pH 6.0 (5.0 - 8.0) 01/24/18 06:43 Ur Specific [place] 1.020 (1.000-1.030) 01/24/18 06:43 Urine Protein Negative (NEGATIVE) 01/24/18 06:43 Urine Glucose (UA) Negative (NEGATIVE) 01/24/18 06:43 Urine Ketones Negative (NEGATIVE) 01/24/18 06:43 Urine Occult Blood Negative (NEGATIVE) 01/24/18 06:43 Urine Nitrite Negative (NEGATIVE) 01/24/18 06:43 Urine Bilirubin Negative (NEGATIVE) 01/24/18 06:43 Urine Urobilinogen Normal (NORMAL) 01/24/18 06:43 Ur Leukocyte Esterase Negative (NEGATIVE) 01/24/18 06:43 Urine RBC 0-1 /HPF (NONE SEEN) 01/24/18 06:43 Urine WBC 0-1 /HPF (NONE SEEN) 01/24/18 06:43 Ur Squamous Epith Cells Rare /HPF (NEGATIVE) 01/24/18 06:43 Urine Bacteria Negative /HPF (NEGATIVE) 01/24/18 06:43 Ur Culture Indicated? No/not indicated 01/24/18 06:43 - Plan (1) Enteritis Status: Acute Plan: CIPRO IV, FLAGYL IV, PEPCID, PROTONIX, CONTINUE TO MONITOR (2) Abdominal pain Status: Acute Qualifiers: Abdominal location: generalized Qualified Code(s): R10.84 - Generalized abdominal pain Plan: PEPCID IV, PROTONIX IV, MORPHINE 2MG IV Q4H PRN, CONTINUE TO MONITOR (3) Dehydration Status: Acute Plan: NORMAL SALINE AT 50ML/HR, CONTINUE TO MONITOR
[2018-01-26] MEDS: NS 1000 ML 1,000 ML IV SCH (11:52)
[2018-01-26] MEDS: NORCO 7.5/325 MG TAB PO PRN (13:10)
[2018-01-26] MEDS: SYNTHROID 100 mcg TAB PO SCH (16:48)
[2018-01-26] MEDS: ARICEPT TAB 10 MG PO SCH (21:13)
[2018-01-26] MEDS: REQUIP PO SCH (21:14)
[2018-01-26] MEDS: NORCO 7.5/325 MG TAB PO SCH (21:15)
[2018-01-26] MEDS: LIPITOR TAB 10 MG PO SCH (21:15)
[2018-01-26] MEDS: FLONASE NASAL SPRAY ENOSTRIL SCH (21:16)
[2018-01-26] MEDS: SNACK - Diabetic Appropriate PO SCH (21:22)
[2018-01-27] MEDS: FLAGYL IV PREMIX 500 MG BAG 500 MG/100 ML BAG IV SCH ×2 (03:10→08:48)
[2018-01-27] MEDS: NEURONTIN CAP 300 MG PO SCH (05:34)
[2018-01-27] MEDS: CIPRO IV 200 MG PREMIX* 200 MG/100 ML BAG IV SCH (05:34)
[2018-01-27] MEDS: SINEMET (PLAIN) 25/250 MG PO SCH (05:35)
[2018-01-27 06:12] LABS: BASOPHILS # (AUTO) 0.1 X10^3/uL (0.0-0.1); BASOPHILS % (AUTO) 0.7 % (0.2-1.0); EOSINOPHILS # (AUTO) 0.1 x10^3/uL (0.0-0.2); HEMATOCRIT 33.9 % (36.0-47.0); HEMOGLOBIN 11.2 g/dL (12.0-16.0); LYMPHOCYTES # (AUTO) 2.4 X10^3/uL (1.3-2.9); MEAN CORPUSCULAR VOLUME 91.1 fL (80.0-100.0); MEAN PLATELET VOLUME 8.5 fL (7.4-11.0); MONOCYTES # (AUTO) 0.8 x10^3/uL (0.3-0.8); MONOCYTES % (AUTO) 10.4 % (0.0-13.0); NEUTROPHILS # (AUTO) 4.1 x10^3/uL (2.2-4.8); NEUTROPHILS % (AUTO) 54.9 % (42.0-75.0); PLATELET COUNT 200 X10^3/uL (150.0-450.0); RED BLOOD COUNT 3.72 X10^6/uL (3.5-5.4); RED CELL DISTRIBUTION WIDTH 21.8 % (11.6-16.5); WHITE BLOOD COUNT 7.5 X10^3/uL (3.6-10.0)
[2018-01-27 06:29] LABS: ALBUMIN 2.9 g/dL (3.4-5.0); CALCIUM 8.1 mg/dL (8.5-10.1); CARBON DIOXIDE 27.1 mmol/L (21-32); CREATININE 1.18 mg/dL (0.55-1.02); TOTAL PROTEIN 5.9 g/dL (6.4-8.2)
[2018-01-27 06:54] LABS: ANISOCYTOSIS 1+; PLATELET MORPHOLOGY COMMENT NORMAL (NORMAL)
--- NOTE | 2018-01-27 07:50 | CT ---
HISTORY: Abdominal pain, enteritis Study: CT abdomen pelvis without contrast Comparison: 01/24/2018 Technique: Axial noncontrast images with coronal and sagittal reformats. Dose reduction procedures we re used with mA/kv adjusted for body size. The examination is limited by the lack of intravenous cont rast. Findings: The lung bases are clear. The heart is enlarged. The liver, spleen, adrenal glands, and pancreas are within normal limits to the limitations of an unenhanced examination. The patient is status post chol ecystectomy. The kidneys are unobstructed and without stones. No ureteral calculi are identified. The appendix is not identified. Postsurgical changes are present in the cecum. The patient may be status post appendectomy. In any case there are no secondary signs of appendicitis present. Calcific athero sclerotic changes present in a nondilated abdominal aorta. No significant intraperitoneal or retroper itoneal lymphadenopathy is identified. There are no findings suggestive of diverticulitis or colitis. Once again noted is a midline fat containing periumbilical ventral hernia which now also contains an unobstructed loop of small bowel. This represents a change from the recent prior examination. There are still several loops of proximal small bowel which demonstrates some mild transmural thickening al though this has improved when compared with the prior examination. Improving enteritis is possible. E xamination of the pelvis demonstrated no evidence for pelvic masses, pelvic fluid, or pelvic lymphade nopathy. There is a Oliva catheter within the bladder. Postsurgical changes are present in the left h ip with hardware present. No significant lytic or blastic skeletal lesions are identified. IMPRESSION: Mild transmural thickening of several loops of proximal small bowel improved when compared with the p rior examination and likely indicating improving mild enteritis Midline periumbilical fat containing ventral hernia which now also contains a loop of unobstructed sm all bowel. The small bowel was not present within the hernia on the prior examination. Reported By:
[2018-01-27] MEDS: AMARYL TAB 4 MG PO SCH (08:46)
[2018-01-27] MEDS: ELIQUIS PO SCH (08:47)
[2018-01-27] MEDS: VITAMIN D3 PO SCH (08:47)
[2018-01-27] MEDS: ZESTRIL TAB 10 MG PO SCH (08:47)
[2018-01-27] MEDS: COREG TAB 6.25 MG PO SCH (08:47)
[2018-01-27] MEDS: NORVASC TAB 5 MG PO SCH (08:47)
[2018-01-27] MEDS: COLACE CAP 100 MG PO SCH (08:47)
[2018-01-27] MEDS: CELEXA PO SCH (08:47)
[2018-01-27] MEDS: HEMOCYTE-PLUS PO SCH (08:48)
[2018-01-27] MEDS: PEPCID 20 MG IV PREMIX* 20 MG/50 ML BAG IV SCH (08:48)
[2018-01-27] MEDS: PROTONIX INJ 40 MG VIAL IVP SCH (08:48)
[2018-01-27] MEDS: MEGACE PO SCH (08:48)
[2018-01-27] MEDS: MICRO K EXTEN CAP 10 MEQ PO SCH (08:56)
--- NOTE | 2018-01-27 11:12 | PCM.PROG ---
Progress Note - Progress Note for Day of Date: 01/26/18 - Subjective Subjective: IS BEING TREATED FOR ABDOMINAL PAIN, ENTERITIS, AND DEHYDRATION. TODAY, SHE IS ALERT AND ORIENTED, SITTING UP IN BED ON MORNING ROUNDS. SPOUSE IS AT BEDSIDE. SHE CONTINUES WITH COMPLAINTS OF MILD, DIFFUSE ABDOMINAL PAIN AND GENERALIZED WEAKNESS. ON EXAMINATION, HEART IS REGULAR IN RATE AND RHYTHM. BILATERAL LUNG SOUNDS ARE DIMINISHED THROUGHOUT. ABDOMEN IS ROUND, SOFT, AND NOTED WITH MILD, DIFFUSE TENDERNESS ON PALPATION. NORMAL BOWEL SOUNDS NOTED IN ALL QUADRANTS. THERE IS NORMAL RANGE OF MOTION TO ALL EXTREMITIES. HER VITALS THIS MORNING ARE 98.3-70-15-94%-186/84. LABS WERE OBTAINED. ABNORMAL LAB VALUES INCLUDE THE FOLLOWING: HGB 11.2, HCT 33.0, BUN 20 , CREATININE 1.37, GLUCOSE 108, CALCIUM 8.0, ALT 10, TOTAL PROTEIN 6.0, ALBUMIN 2.9. TODAY, WE WILL CONTINUE IV FLUIDS, CIPRO AND FLAGYL IV, AND MORPHINE AND ZOFRAN PRN FOR PAIN AND NAUSEA. WE PLAN TO REPEAT CT OF THE ABDOMEN AND PELVIS WITHOUT CONTRAST IN THE MORNING. OTHERWISE, WE PLAN TO FOLLOW UP WITH AM LABS AND CONTINUE TO MONITOR PATIENT. - Past Medical Family Social History Past Med/Fam/Surg Hx: No changes since H&P Allergies: Allergies ADHESIVE TAPE Allergy (Uncoded 01/23/18 19:17) - Review of Systems ROS: No change since H&P - Vital Signs and I&O's Vital Signs: Temperature 97.6 F Pulse Rate [Left Brachial] 68 Pulse Rate 80 Respiratory Rate 20 Blood Pressure [Left Calf] 149/72 Blood Pressure [Right Arm] 122/62 Blood Pressure [Left Arm] 203/98 Blood Pressure 117/75 O2 Sat by Pulse Oximetry 93 Intake and Output: Intake & Output 01/24/18 01/25/18 01/26/18 01/27/18 11:59 11:59 11:59 11:59 Intake Total 1890 1100 1959 Output Total 3100 2300 4057 Balance -1367 -8803 -466 - Physical Exam Oriented: Normal Eyes: Normal Ear: Normal Nose: Normal Throat: Normal Respiratory: Right, Left, Generalized, Diminished Cardiovascular: Normal. negative: S3, S4, Murmur, Edema : Normal Auscultation: Bowel Sounds: Increased Palpation: Normal Tenderness: Diffuse, Mild. negative: Rebound, Guarding, Rigidity Skin: Normal Musculoskeletal: Normal Psychiatric: Normal Mood Description: Calm Affect: Normal Speech Pattern: Clear, Appropriate - Laboratory and Diagnostics Result Diagrams: 01/27/18 04:43 01/27/18 04:43 Labs: Laboratory WBC 7.5 X10^3/uL (3.6-10.0) 01/27/18 04:43 RBC 3.72 X10^6/uL (3.5-5.4) 01/27/18 04:43 Hgb 11.2 g/dL (12.0-16.0) L 01/27/18 04:43 Hct 33.9 % (36.0-47.0) L 01/27/18 04:43 MCV 91.1 fL (80.0-100.0) 01/27/18 04:43 MCH 30.0 pg (27.0-34.0) 01/27/18 04:43 MCHC 33.0 g/dL (33.0-35.0) 01/27/18 04:43 RDW 21.8 % (11.6-16.5) H 01/27/18 04:43 Plt Count 200 X10^3/uL (150.0-450.0) 01/27/18 04:43 Plt Count Comment Adequate (ADEQUATE) 01/27/18 04:43 MPV 8.5 fL (7.4-11.0) 01/27/18 04:43 Neut % (Auto) 54.9 % (42.0-75.0) 01/27/18 04:43 Lymph % (Auto) 32.0 % (21.0-51.0) 01/27/18 04:43 [place] % (Auto) 10.4 % (0.0-13.0) 01/27/18 04:43 Eos % (Auto) 2.0 % (0.9-2.9) 01/27/18 04:43 Baso % (Auto) 0.7 % (0.2-1.0) 01/27/18 04:43 Neut # (Auto) 4.1 x10^3/uL (2.2-4.8) 01/27/18 04:43 Lymph # (Auto) 2.4 X10^3/uL (1.3-2.9) 01/27/18 04:43 [place] # (Auto) 0.8 x10^3/uL (0.3-0.8) 01/27/18 04:43 Eos # (Auto) 0.1 x10^3/uL (0.0-0.2) 01/27/18 04:43 Baso # (Auto) 0.1 X10^3/uL (0.0-0.1) 01/27/18 04:43 Absolute Nucleated RBC 0.1 /100WBC 01/27/18 04:43 Plt Morphology Comment Normal (NORMAL) 01/27/18 04:43 RBC Morphology Abnormal (NORMAL) A 01/27/18 04:43 Anisocytosis 1+ A 01/27/18 04:43 Sodium 143 mmol/L (136-145) 01/27/18 04:43 Corrected Sodium 144 mmol/L (136-145) 01/27/18 04:43 Potassium 4.5 mmol/L (3.5-5.1) 01/27/18 04:43 Chloride 110 mmol/L (98-107) H 01/27/18 04:43 Carbon Dioxide 27.1 mmol/L (21-32) 01/27/18 04:43 BUN 17 mg/dL (7-18) 01/27/18 04:43 Creatinine 1.18 mg/dL (0.55-1.02) H 01/27/18 04:43 Est GFR (MDRD) Af Amer 56 (>60) L 01/27/18 04:43 Est GFR (MDRD) Non-Af 46 (>60) L 01/27/18 04:43 Glucose 121 mg/dL (65-99) H 01/27/18 04:43 POC Glucose (mg/dL) 135 mg/dL (65-99) H 01/27/18 05:40 Calcium 8.1 mg/dL (8.5-10.1) L 01/27/18 04:43 Corrected Calcium 9.0 mg/dL (8.5-10.1) 01/27/18 04:43 Total Bilirubin 0.20 mg/dL (0.2-1.0) 01/27/18 04:43 AST 20 Units/L (15-37) 01/27/18 04:43 ALT 10 Units/L (12-78) L 01/27/18 04:43 Alkaline Phosphatase 58 Units/L (46-116) 01/27/18 04:43 Total Protein 5.9 g/dL (6.4-8.2) L 01/27/18 04:43 Albumin 2.9 g/dL (3.4-5.0) L 01/27/18 04:43 Globulin 3.0 g/dL (2.5-4.5) 01/27/18 04:43 Albumin/Globulin Ratio 1.0 Ratio (1.1-2.1) L 01/27/18 04:43 Amylase 31 Units/L (25-115) 01/25/18 04:30 Lipase 93 Units/L (73-393) 01/25/18 04:30 Specimen Type Catherized urine 01/24/18 06:43 Urine Color Yellow (YELLOW) 01/24/18 06:43 Urine Appearance Clear (CLEAR) 01/24/18 06:43 Urine pH 6.0 (5.0 - 8.0) 01/24/18 06:43 Ur Specific [place] 1.020 (1.000-1.030) 01/24/18 06:43 Urine Protein Negative (NEGATIVE) 01/24/18 06:43 Urine Glucose (UA) Negative (NEGATIVE) 01/24/18 06:43 Urine Ketones Negative (NEGATIVE) 01/24/18 06:43 Urine Occult Blood Negative (NEGATIVE) 01/24/18 06:43 Urine Nitrite Negative (NEGATIVE) 01/24/18 06:43 Urine Bilirubin Negative (NEGATIVE) 01/24/18 06:43 Urine Urobilinogen Normal (NORMAL) 01/24/18 06:43 Ur Leukocyte Esterase Negative (NEGATIVE) 01/24/18 06:43 Urine RBC 0-1 /HPF (NONE SEEN) 01/24/18 06:43 Urine WBC 0-1 /HPF (NONE SEEN) 01/24/18 06:43 Ur Squamous Epith Cells Rare /HPF (NEGATIVE) 01/24/18 06:43 Urine Bacteria Negative /HPF (NEGATIVE) 01/24/18 06:43 Ur Culture Indicated? No/not indicated 01/24/18 06:43 - Plan (1) Enteritis Status: Acute Plan: REPEAT CT IN AM, CIPRO IV, FLAGYL IV, PEPCID, PROTONIX, CONTINUE TO MONITOR (2) Abdominal pain Status: Acute Qualifiers: Abdominal location: generalized Qualified Code(s): R10.84 - Generalized abdominal pain Plan: PEPCID IV, PROTONIX IV, MORPHINE 2MG IV Q4H PRN, CONTINUE TO MONITOR (3) Dehydration Status: Acute Plan: NORMAL SALINE AT 50ML/HR, CONTINUE TO MONITOR
[2018-01-27 12:24] VITALS: BP 133/81
== END 2018-01-27 12:18 | disposition home health service (06) | DRG 392 ==
LOC: ER 19:22 → MED/SURG 01-24 06:06
PROVIDERS: ADMIT Internal Medicine; ATTEND Internal Medicine
DX: K52.89 Other specified noninfective gastroenteritis and colitis (principal); R10.84 Generalized abdominal pain; E86.0 Dehydration; I25.10 Atherosclerotic heart disease of native coronary artery without angina pectoris; E78.2 Mixed hyperlipidemia; K21.9 Gastro-esophageal reflux disease without esophagitis; I10 Essential (primary) hypertension; E03.8 Other specified hypothyroidism; R06.02 Shortness of breath; Z85.038 Personal history of other malignant neoplasm of large intestine; Z79.899 Other long term (current) drug therapy
CPT/HCPCS: 36415; 51702; 74176; 80053; 81001; 82150; 83690; 85025; 94760; 96365; 96367; 96374; 96375; 97535; 99284; A4222; C9113; S0028; S0030; S0179; J0744; J1885; J2270; J2405

== ENCOUNTER 2018-05-25 16:20 | Observation (INO) ==
[2018-05-25 18:29] LABS: BASOPHILS % (AUTO) 0.4 % (0.2-1.0); EOSINOPHILS # (AUTO) 0.1 x10^3/uL (0.0-0.2); EOSINOPHILS % (AUTO) 0.9 % (0.9-2.9); HEMATOCRIT 37.7 % (36.0-47.0); LYMPHOCYTES # (AUTO) 2.5 X10^3/uL (1.3-2.9); LYMPHOCYTES % (AUTO) 25.2 % (21.0-51.0); MEAN CORPUSCULAR HEMOGLOBIN 34.1 pg (27.0-34.0); MEAN CORPUSCULAR HGB CONC 34.5 g/dL (33.0-35.0); MEAN CORPUSCULAR VOLUME 98.8 fL (80.0-100.0); MONOCYTES % (AUTO) 9.8 % (0.0-13.0); NEUTROPHILS # (AUTO) 6.4 x10^3/uL (2.2-4.8); NEUTROPHILS % (AUTO) 63.7 % (42.0-75.0); PLATELET COUNT 232 X10^3/uL (150.0-450.0); RED BLOOD COUNT 3.81 X10^6/uL (3.5-5.4)
[2018-05-25] MEDS: NS 1000 ML 1,000 ML IV SCH (18:34)
[2018-05-25 18:46] LABS: ALANINE AMINOTRANSFERASE 9 Units/L (12-78); ALBUMIN 3.5 g/dL (3.4-5.0); ALKALINE PHOSPHATASE 63 Units/L (46-116); ASPARTATE AMINO TRANSFERASE 14 Units/L (15-37); BLOOD UREA NITROGEN 29 mg/dL (7-18); CARBON DIOXIDE 29.2 mmol/L (21-32); CHLORIDE 102 mmol/L (98-107); COR NA(FOR HYPERGLY) 138 mmol/L (136-145); SODIUM 137 mmol/L (136-145); eGFR NON BLACK RACES 23 (>60)
--- NOTE | 2018-05-25 20:02 | RAD ---
HISTORY: 82-year-old female with nausea vomiting. Study: Single view the abdomen. Comparison: CT abdomen pelvis 01/27/2018. Findings: Evaluation of the abdomen demonstrates a nonobstructive bowel gas pattern with gas and stool througho ut the colon and no radiographic evidence of free intraperitoneal air. No pathological soft tissue m ass or calcification can be observed. The bony structures are grossly intact. Unchanged appearance o f left total hip arthroplasty. IMPRESSION: 1. No evidence for acute abdominal pathology identified. Reported By:
[2018-05-25] MEDS ORDERED: DECADRON INJ PRESERVATIVE-FREE IM ONE (20:50)
[2018-05-25] MEDS ORDERED: NS 100 ML IV 100 ML IV ONE (20:50)
[2018-05-25] MEDS ORDERED: ZOFRAN INJ 4 MG VIAL ONE (20:51)
[2018-05-25] MEDS ORDERED: ATIVAN INJ 2 MG VIAL ONE (20:51)
[2018-05-25 20:56] VITALS: BMI 29.8
[2018-05-25] MEDS: NORCO 5/325 MG TAB PO PRN (21:06)
[2018-05-25] MEDS: ZOFRAN INJ 4 MG VIAL 16 MG, ATIVAN INJ 2 MG VIAL 1 MG, DECADRON INJ 10 MG in NS 50 ML I... IV PRN (21:10)
[2018-05-25 21:53] LABS: BILIRUBIN,URINE NEGATIVE (NEGATIVE); BLOOD/HEMOGLOBIN,URINE NEGATIVE (NEGATIVE); GLUCOSE, URINE NEGATIVE (NEGATIVE); KETONES,URINE 1+ (NEGATIVE); LEUKOCYTE ESTERASE ,URINE 1+ (NEGATIVE); NITRITES,URINE NEGATIVE (NEGATIVE); PROTEIN,URINE 1+ (NEGATIVE); UROBILINOGEN,URINE NORMAL (NORMAL)
[2018-05-25 21:58] LABS: APPEARANCE,URINE CLEAR (CLEAR); COLOR,URINE YELLOW (YELLOW)
[2018-05-25 21:59] LABS: BACTERIA,URINE 2+ /HPF (NEGATIVE); HYALINE CASTS, URINE FEW /LPF (NEGATIVE); RBC,URINE NONE SEEN /HPF (NONE SEEN); SQUAMOUS EPITHELIAL CELL,UR FEW /HPF (NEGATIVE)
[2018-05-26 05:23] LABS: BASOPHILS % (AUTO) 0.4 % (0.2-1.0); HEMATOCRIT 38.5 % (36.0-47.0); LYMPHOCYTES # (AUTO) 1.5 X10^3/uL (1.3-2.9); MEAN CORPUSCULAR HEMOGLOBIN 33.4 pg (27.0-34.0); MEAN CORPUSCULAR HGB CONC 33.8 g/dL (33.0-35.0); MEAN CORPUSCULAR VOLUME 98.9 fL (80.0-100.0); MEAN PLATELET VOLUME 8.2 fL (7.4-11.0); MONOCYTES # (AUTO) 0.1 x10^3/uL (0.3-0.8); MONOCYTES % (AUTO) 0.9 % (0.0-13.0); NEUTROPHILS # (AUTO) 5.9 x10^3/uL (2.2-4.8); NEUTROPHILS % (AUTO) 78.7 % (42.0-75.0); PLATELET COUNT 211 X10^3/uL (150.0-450.0); RED CELL DISTRIBUTION WIDTH 13.7 % (11.6-16.5); WHITE BLOOD COUNT 7.5 X10^3/uL (3.6-10.0)
[2018-05-26 05:34] LABS: ALBUMIN 3.3 g/dL (3.4-5.0); CALCIUM 8.8 mg/dL (8.5-10.1); CARBON DIOXIDE 25.5 mmol/L (21-32); COR CA(FOR HYPOALB) 9.4 mg/dL (8.5-10.1); CREATININE 2.07 mg/dL (0.55-1.02); TOTAL PROTEIN 6.8 g/dL (6.4-8.2)
[2018-05-26] MEDS: NORCO 5/325 MG TAB PO PRN (06:00)
--- NOTE | 2018-05-26 08:07 | DR.H&P ---
H&P - History & Physical for Day of: H&P Date: 05/25/18 - Chief Complaint Chief Complaint: NAUSEA, VOMITING, HEADACHES - History of Present Illness History of Present Illness: IS A 82 YEAR OLD PATIENT OF OURS WHO WAS A DIRECT ADMISSION FROM THE OFFICE WITH COMPLAINTS OF NAUSEA, VOMITING, AND HEADACES X 2 WEEKS. PATIENT REPORTED SELF TREATMENT WITH ZOFRAN AT HOME, HOWEVER , SYMPTOMS HAVE ONLY PROGRESSIVELY GOTTEN WORSE. ON ARRIVAL TO THE HOSPITAL, VITALS WERE 98.4-66-20-94%-140/66. LABS WERE OBTAINED. ABNORMAL LAB VALUES INCLUDE THE FOLLOWING: BUN 29, CREATININE 2.20, GLUCOSE 137, AST 14, ALT 9. URINALYSIS REVEALED WBC 3-5, RBC NONE SEEN, BACTERIA 2+, LEUKOCYTES 1+. KUB OBTAINED AND REVEALED: Evaluation of the abdomen demonstrates a nonobstructive bowel gas pattern with gas and stool throughout the colon and no radiographic evidence of free intraperitoneal air. No pathological soft tissue mass or calcification can be observed. The bony structures are grossly intact. Unchanged appearance of left total hip arthroplasty. SHE WAS STARTED ON NORMAL SALINE AT 75ML/HR, ZOFRAN COCKTAIL, AND ROCEPHIN 1GM IV DAILY. OTHERWISE, WE WILL FOLLOW UP WITH AM LABS AND CONTINUE TO MONITOR PATIENT. - Past Medical History Past Medical History: Anemia, Arthritis, CHF, Coronary Artery Disease, Diabetes , Dyslipidemia, GERD, Hypertension, Hypothyroidism, Kidney Stones Additional Medical History: Vision Deficit, Parkinson's Disease, Atrial Fibrillation, Bronchitis, Pneumonia, Constipation, Diarrhea, Colon Cancer, Breast Cancer, Urinary Tract Infections, Muscle Weakness, Back Pain, Neuropathy , Previous Blood Transfusion - Past Surgical History Surgical History: Abdominal Surgery, Appendectomy, Bowel Resection, Cholecystectomy, Hysterectomy, Ortho Surgery, Tonsillectomy Additional Surgical History: Pacemaker, Two Colon Resection's for Colon Cancer, Left Partial Mastectomy for Breast Cancer, Right Chest Wall Port a cath, Left PAU - Family History Family Medical History: Diabetes Mellitus, [place], Hypertension - Social History Alcohol Use: None Drug Use: None - Medications Home Medications: latex Allergy (Verified 04/26/18 10:30) ADHESIVE TAPE Allergy (Uncoded 04/26/18 10:30) CONTINUE taking the following medications iron-folic acid-mv, min cmb#15 [Centratex] 2 cap PO DAILY 05/25/18 [History] ondansetron [Zofran ODT 8 mg] 8 mg PO BID 05/25/18 [History] sennosides-docusate sodium [Senna-S] 2 tab PO HS 05/25/18 [History] tolterodine 4 mg PO DAILY 05/25/18 [History] tramadol 300 mg PO DAILY 05/25/18 [History] - Review of Systems Constitutional: Weakness Eyes: No Symptoms Reported ENT: No Symptoms Reported Respiratory: No Symptoms Reported Cardiovascular: No Symptoms Reported Gastrointestinal: Nausea, Vomiting, Abdominal Pain Genitourinary: No Symptoms Reported Musculoskeletal: No Symptoms Reported Skin: No Symptoms Reported Neurological: Weakness, Other (HEADACHES ) - Physical Exam Vital Signs: Temperature 98 F Pulse Rate [Left Brachial] 74 Pulse Rate [Right Brachial] 71 Respiratory Rate 16 Blood Pressure [Left Calf] 149/72 Blood Pressure [Right Arm] 122/62 Blood Pressure [Left Arm] 166/85 Blood Pressure 133/75 O2 Sat by Pulse Oximetry 95 Oriented: Normal Eyes: Normal Ear: Normal Nose: Normal Throat: Normal Respiratory: Diminished Throughout Cardiovascular: Normal : Normal Auscultation: Bowel Sounds: Increased Palpation: Normal Tenderness: Suprapubic, Mild. negative: Rebound, Guarding, Rigidity Skin: Normal Musculoskeletal: Normal Psychiatric: Normal Mood Description: Calm Affect: Normal Speech Pattern: Clear - Assessment/Plan (1) Dehydration Status: Acute Plan: ADMIT, NORMAL SALINE AT 75ML/HR (2) Urinary tract infection Qualifiers: Urinary tract infection type: acute cystitis Hematuria presence: without hematuria Qualified Code(s): N30.00 - Acute cystitis without hematuria Status: Acute Plan: ROCEPHIN 1GM IV DAILY (3) Intractable nausea and vomiting Qualifiers: Vomiting type: unspecified Qualified Code(s): R11.2 - Nausea with vomiting , unspecified Status: Acute Plan: ZOFRAN COCKTAIL, CONTINUE TO MONITOR - Allergies Allergies/Adverse Reactions: Allergies Allergy/AdvReac Type Severity Reaction Status Date / Time latex Allergy Verified 04/26/18 10:30 ADHESIVE TAPE Allergy Uncoded 04/26/18 10:30
[2018-05-26] MEDS ORDERED: HEMOCYTE-PLUS PO SCH (10:00)
[2018-05-26] MEDS: ROCEPHIN VIAL 1 GRAM 1 G in NS 100 ML IV + SPIKE MINIBAG* 100 ML IV SCH ×2 (10:00→10:02)
[2018-05-26] MEDS ORDERED: TRAMADOL 300 MG PO SCH (10:00)
[2018-05-26] MEDS ORDERED: CATAPRES-TTS-2 TD SCH (10:00)
[2018-05-26] MEDS: NS 1000 ML 1,000 ML IV SCH (11:10)
[2018-05-26] MEDS: DETROL LA 4 MG CAP EXT REL PO SCH (11:11)
[2018-05-26] MEDS: CELEXA PO SCH (11:11)
[2018-05-26] MEDS: NORVASC TAB 5 MG PO SCH (11:11)
[2018-05-26] MEDS: HEMOCYTE-PLUS PO SCH (11:11)
[2018-05-26] MEDS: COREG TAB 6.25 MG PO SCH ×2 (11:12→20:01)
[2018-05-26] MEDS: PEPCID TAB 20 MG PO SCH ×2 (11:12→20:02)
[2018-05-26] MEDS: ZESTRIL TAB 10 MG PO SCH (11:12)
[2018-05-26] MEDS: AMARYL TAB 4 MG PO SCH ×2 (11:12→20:01)
[2018-05-26] MEDS: ELIQUIS PO SCH ×2 (11:12→20:01)
[2018-05-26] MEDS: PROTONIX TAB 40 MG PO SCH ×2 (11:12→20:02)
[2018-05-26] MEDS: FIORICET TAB PO PRN ×2 (11:23→22:20)
--- NOTE | 2018-05-26 11:33 | CT ---
STUDY: CT HEAD WITHOUT CONTRAST HISTORY: Nausea, vomiting, and headaches for 2 weeks. COMPARISON: Head CT from June 30, 2017. TECHNIQUE: Multiple axial images of the head were obtained from the skull base to the vertex without administration of IV contrast. Automated exposure control (AEC) was utilized to adjust the MA and/or kV. Findings: The sulci, cisterns and ventricles are prominent consistent with diffuse volume loss. There are confluent and scattered foci of low attenuation in the periventricular and subcortical whit e matter of both hemispheres. This is a nonspecific finding which likely represents microangiopathic change in a patient of this age. There is no evidence of acute territorial infarction, hemorrhage, mass, mass effect or midline shift. There are no abnormal extra-axial fluid collections. There is no evidence of acute osseous abnormality or significant soft tissue swelling. IMPRESSION: 1. No evidence of acute intracranial abnormality. 2. Nonspecific white matter change and volume loss as described. 3. If there remains strong clinical concern for acute intracranial abnormality, then an MRI examinati on should be considered for further evaluation. Reported By:
[2018-05-26] MEDS ORDERED: PATIENT'S HOME MEDICATION (Cholecalciferol (Vitamin D3) [Vitamin D3] 2,000 UNIT) PO SCH (12:00)
[2018-05-26] MEDS ORDERED: VITAMIN D3 PO SCH (12:00)
[2018-05-26] MEDS: MICRO K EXTEN CAP 10 MEQ PO SCH (12:45)
[2018-05-26] MEDS ORDERED: CARBIDOPA LEVODOPA PO SCH (14:00)
[2018-05-26] MEDS: SINEMET (PLAIN) 25/250 MG PO SCH ×2 (14:32→21:19)
[2018-05-26] MEDS: SYNTHROID 100 mcg TAB PO SCH (17:10)
[2018-05-26] MEDS: REQUIP PO SCH ×2 (20:02→20:18)
[2018-05-26] MEDS ORDERED: ARICEPT TAB 10 MG PO SCH (21:00)
[2018-05-26] MEDS ORDERED: PATIENT'S HOME MEDICATION (Sennosides-Docusate Sodium [Senna-S] 2 TAB) PO SCH (21:00)
[2018-05-26] MEDS ORDERED: LIPITOR TAB 10 MG PO SCH (21:00)
[2018-05-26] MEDS ORDERED: SENOKOT PO SCH (21:00)
[2018-05-27] MEDS ORDERED: DECADRON INJ PRESERVATIVE-FREE IM ONE (03:51)
[2018-05-27] MEDS ORDERED: ZOFRAN INJ 4 MG VIAL ONE (03:51)
[2018-05-27] MEDS ORDERED: ATIVAN INJ 2 MG VIAL ONE (03:52)
[2018-05-27] MEDS ORDERED: NS 100 ML IV 100 ML IV ONE (03:53)
[2018-05-27] MEDS: ZOFRAN INJ 4 MG VIAL 16 MG, ATIVAN INJ 2 MG VIAL 1 MG, DECADRON INJ 10 MG in NS 50 ML I... IV PRN (04:04)
[2018-05-27] MEDS: NS 1000 ML 1,000 ML IV SCH (05:05)
[2018-05-27] MEDS: SINEMET (PLAIN) 25/250 MG PO SCH (05:20)
[2018-05-27 05:26] LABS: BASOPHILS % (AUTO) 0.4 % (0.2-1.0); EOSINOPHILS % (AUTO) 0.2 % (0.9-2.9); HEMATOCRIT 37.3 % (36.0-47.0); HEMOGLOBIN 12.9 g/dL (12.0-16.0); LYMPHOCYTES # (AUTO) 2.5 X10^3/uL (1.3-2.9); LYMPHOCYTES % (AUTO) 22.9 % (21.0-51.0); MEAN CORPUSCULAR HGB CONC 34.5 g/dL (33.0-35.0); MEAN CORPUSCULAR VOLUME 98.5 fL (80.0-100.0); MEAN PLATELET VOLUME 7.6 fL (7.4-11.0); MONOCYTES # (AUTO) 0.9 x10^3/uL (0.3-0.8); NEUTROPHILS # (AUTO) 7.4 x10^3/uL (2.2-4.8); NEUTROPHILS % (AUTO) 68.5 % (42.0-75.0); PLATELET COUNT 224 X10^3/uL (150.0-450.0); RED BLOOD COUNT 3.79 X10^6/uL (3.5-5.4); RED CELL DISTRIBUTION WIDTH 13.5 % (11.6-16.5); WHITE BLOOD COUNT 10.7 X10^3/uL (3.6-10.0)
[2018-05-27 05:36] LABS: ALBUMIN 3.1 g/dL (3.4-5.0); CALCIUM 8.6 mg/dL (8.5-10.1); CARBON DIOXIDE 28.1 mmol/L (21-32); COR CA(FOR HYPOALB) 9.3 mg/dL (8.5-10.1); CREATININE 1.61 mg/dL (0.55-1.02); TOTAL PROTEIN 6.4 g/dL (6.4-8.2)
[2018-05-27] MEDS: SYNTHROID 100 mcg TAB PO SCH (06:30)
[2018-05-27] MEDS: ROCEPHIN VIAL 1 GRAM 1 G in NS 100 ML IV + SPIKE MINIBAG* 100 ML IV SCH (08:41)
[2018-05-27] MEDS: MICRO K EXTEN CAP 10 MEQ PO SCH (08:42)
[2018-05-27] MEDS: CELEXA PO SCH (08:43)
[2018-05-27] MEDS: COREG TAB 6.25 MG PO SCH (08:43)
[2018-05-27] MEDS: DETROL LA 4 MG CAP EXT REL PO SCH (08:43)
[2018-05-27] MEDS: HEMOCYTE-PLUS PO SCH (08:44)
[2018-05-27] MEDS: PEPCID TAB 20 MG PO SCH (08:44)
[2018-05-27] MEDS: AMARYL TAB 4 MG PO SCH (08:44)
[2018-05-27] MEDS: PROTONIX TAB 40 MG PO SCH (08:45)
[2018-05-27] MEDS: ZESTRIL TAB 10 MG PO SCH (08:45)
[2018-05-27] MEDS: ELIQUIS PO SCH (08:45)
[2018-05-27] MEDS: NORVASC TAB 5 MG PO SCH (09:00)
[2018-05-27 12:10] VITALS: BP 182/98
== END 2018-05-27 13:00 | disposition home or self-care (01) ==
LOC: MED/SURG
PROVIDERS: ADMIT Internal Medicine; ATTEND Internal Medicine
DX: R51 Headache; R53.1 Weakness; E86.0 Dehydration; I25.10 Atherosclerotic heart disease of native coronary artery without angina pectoris; K21.9 Gastro-esophageal reflux disease without esophagitis; E03.8 Other specified hypothyroidism; E78.2 Mixed hyperlipidemia; I10 Essential (primary) hypertension; N30.00 Acute cystitis without hematuria; R11.2 Nausea with vomiting, unspecified; R26.89 Other abnormalities of gait and mobility
CPT/HCPCS: 36415; 70450; 74000; 74018; 80053; 81001; 85025; 97162; 97166; A4216; A4222; G0378; J0696; J1100; J1642; J2060; J2405; J7030; J7050

== ENCOUNTER 2018-07-27 15:08 | Inpatient (IN) ==
[2018-07-27] MEDS ORDERED: SALINE 3% 15 ML NEB TX NEB ONE (16:50)
[2018-07-27] MEDS ORDERED: PHARMACY CONSULT - DOSE _____ XX SCH (17:38)
[2018-07-27] MEDS ORDERED: SALINE 3% 15 ML NEB TX ONE (17:51)
[2018-07-27] MEDS ORDERED: NS 1/2 1000 ML IV 1,000 ML IV ONE (18:02)
[2018-07-27] MEDS: NS 1/2 1000 ML IV 1,000 ML IV SCH (18:07)
[2018-07-27] MEDS: ROBITUSSIN DM PO SCH ×2 (18:07→22:09)
[2018-07-27 18:24] LABS: BASOPHILS # (AUTO) 0.1 X10^3/uL (0.0-0.1); BASOPHILS % (AUTO) 0.7 % (0.2-1.0); EOSINOPHILS # (AUTO) 0.1 x10^3/uL (0.0-0.2); EOSINOPHILS % (AUTO) 1.3 % (0.9-2.9); HEMOGLOBIN 13.3 g/dL (12.0-16.0); LYMPHOCYTES # (AUTO) 2.7 X10^3/uL (1.3-2.9); LYMPHOCYTES % (AUTO) 36.5 % (21.0-51.0); MEAN CORPUSCULAR HEMOGLOBIN 33.5 pg (27.0-34.0); MEAN CORPUSCULAR HGB CONC 34.1 g/dL (33.0-35.0); MEAN CORPUSCULAR VOLUME 98.1 fL (80.0-100.0); MEAN PLATELET VOLUME 8.1 fL (7.4-11.0); MONOCYTES # (AUTO) 0.6 x10^3/uL (0.3-0.8); MONOCYTES % (AUTO) 7.9 % (0.0-13.0); NEUTROPHILS % (AUTO) 53.6 % (42.0-75.0); PLATELET COUNT 202 X10^3/uL (150.0-450.0); RED BLOOD COUNT 3.98 X10^6/uL (3.5-5.4); RED CELL DISTRIBUTION WIDTH 13.4 % (11.6-16.5); WHITE BLOOD COUNT 7.5 X10^3/uL (3.6-10.0)
[2018-07-27 18:26] LABS: ALANINE AMINOTRANSFERASE 11 Units/L (12-78); ALBUMIN 3.5 g/dL (3.4-5.0); ALKALINE PHOSPHATASE 59 Units/L (46-116); ASPARTATE AMINO TRANSFERASE 19 Units/L (15-37); BLOOD UREA NITROGEN 18 mg/dL (7-18); CALCIUM 8.7 mg/dL (8.5-10.1); CARBON DIOXIDE 32.7 mmol/L (21-32); CHLORIDE 104 mmol/L (98-107); CREATININE 2.03 mg/dL (0.55-1.02); SODIUM 142 mmol/L (136-145); TOTAL PROTEIN 6.7 g/dL (6.4-8.2); eGFR NON BLACK RACES 25 (>60)
[2018-07-27 18:51] VITALS: BMI 28.1
[2018-07-27] MEDS: LEVAQUIN PREMIX IV 750 MG 750 MG/150 ML BAG IV SCH (19:05)
--- NOTE | 2018-07-27 19:11 | RAD ---
HISTORY: 82-year-old female with suspected pneumonia. History CHF. Study: Frontal view of the chest. Comparison: Chest radiograph 06/28/2018 Findings: Surgical support devices are stable. The trachea is midline. The cardiac silhouette is stably enlarged with continued low lung volumes wi th prominent interstitium and perihilar lung markings. No overt edema, large effusion, large consoli dation or pneumothorax. Soft tissues are unremarkable. Osseous structures are unremarkable. IMPRESSION: 1. No acute cardiopulmonary disease. Reported By:
[2018-07-27] MEDS: DUONEB 0.5 MG/3 MG NEB SCH (20:24)
[2018-07-27] MEDS ORDERED: NORCO 5/325 MG TAB PO PRN (22:02)
[2018-07-27] MEDS: FORTAZ or TAZICEF VIAL INJ IVP SCH (22:09)
[2018-07-27] MEDS: TUSSIONEX PENNKINETIC SUSP PO PRN (22:09)
[2018-07-28] MEDS: PEPCID TAB 20 MG PO SCH ×3 (00:21→21:15)
[2018-07-28 00:59] LABS: CKMB % 1.2 % (<4); CREATINE KINASE 85 Units/L (26-192); TROPONIN I < 0.02 ng/mL (0-1.5)
[2018-07-28 05:08] LABS: BASOPHILS # (AUTO) 0.1 X10^3/uL (0.0-0.1); BASOPHILS % (AUTO) 0.9 % (0.2-1.0); EOSINOPHILS # (AUTO) 0.1 x10^3/uL (0.0-0.2); EOSINOPHILS % (AUTO) 1.8 % (0.9-2.9); HEMATOCRIT 38.5 % (36.0-47.0); LYMPHOCYTES # (AUTO) 2.5 X10^3/uL (1.3-2.9); LYMPHOCYTES % (AUTO) 32.8 % (21.0-51.0); MEAN CORPUSCULAR HEMOGLOBIN 33.2 pg (27.0-34.0); MEAN CORPUSCULAR HGB CONC 33.8 g/dL (33.0-35.0); MEAN CORPUSCULAR VOLUME 98.3 fL (80.0-100.0); MEAN PLATELET VOLUME 8.3 fL (7.4-11.0); MONOCYTES # (AUTO) 0.8 x10^3/uL (0.3-0.8); NEUTROPHILS # (AUTO) 4.1 x10^3/uL (2.2-4.8); NEUTROPHILS % (AUTO) 54.5 % (42.0-75.0); PLATELET COUNT 200 X10^3/uL (150.0-450.0); RED BLOOD COUNT 3.91 X10^6/uL (3.5-5.4); RED CELL DISTRIBUTION WIDTH 13.2 % (11.6-16.5); WHITE BLOOD COUNT 7.6 X10^3/uL (3.6-10.0)
[2018-07-28 05:27] LABS: ALANINE AMINOTRANSFERASE 13 Units/L (12-78); ALBUMIN 3.1 g/dL (3.4-5.0); ALKALINE PHOSPHATASE 53 Units/L (46-116); ASPARTATE AMINO TRANSFERASE 16 Units/L (15-37); BLOOD UREA NITROGEN 16 mg/dL (7-18); CALCIUM 8.5 mg/dL (8.5-10.1); CARBON DIOXIDE 32.2 mmol/L (21-32); CHLORIDE 103 mmol/L (98-107); COR CA(FOR HYPOALB) 9.2 mg/dL (8.5-10.1); CREATININE 1.82 mg/dL (0.55-1.02); SODIUM 141 mmol/L (136-145); TOTAL PROTEIN 6.3 g/dL (6.4-8.2); eGFR NON BLACK RACES 28 (>60)
[2018-07-28 05:42] LABS: CKMB % 1.4 % (<4); CREATINE KINASE 78 Units/L (26-192); CREATINE KINASE MB 1.1 ng/mL (0-4.0); TROPONIN I < 0.02 ng/mL (0-1.5)
--- NOTE | 2018-07-28 07:48 | RAD ---
History: CHF Study: AP chest Comparison: Yesterday Findings: There is no significant change. The heart size is normal and the aorta is tortuous. There i s a right internal jugular Port-A-Cath as before. There are intact pacemaker wire leads from the left . There is subsegmental atelectasis in the right mid and lower lung. There is no significant effusion . Impression: Subsegmental atelectasis in the right lower lobe Reported By:
[2018-07-28] MEDS: NS 1/2 1000 ML IV 1,000 ML IV SCH (07:58)
[2018-07-28 07:59] LABS: CKMB % 1.5 % (<4); CREATINE KINASE 73 Units/L (26-192); CREATINE KINASE MB 1.1 ng/mL (0-4.0); TROPONIN I < 0.02 ng/mL (0-1.5)
[2018-07-28] MEDS ORDERED: NS 100 ML IV + SPIKE MINIBAG* 100 ML IV ONE ×2 (08:21→20:18)
[2018-07-28] MEDS: FORTAZ or TAZICEF VIAL INJ IVP SCH ×2 (08:25→21:23)
[2018-07-28] MEDS: ROBITUSSIN DM PO SCH ×4 (08:26→20:23)
[2018-07-28] MEDS: DUONEB 0.5 MG/3 MG NEB SCH ×4 (08:44→20:32)
[2018-07-28] MEDS ORDERED: NS 1/2 1000 ML IV 1,000 ML IV ONE (11:03)
[2018-07-28] MEDS: SOLU-Medrol 40 MG VIAL IVP SCH ×3 (11:07→21:23)
[2018-07-28] MEDS: NORCO 7.5/325 MG TAB PO PRN ×2 (11:07→18:12)
[2018-07-28] MEDS: KLONOPIN TAB 0.5 MG PO SCH ×2 (11:08→20:22)
--- NOTE | 2018-07-28 14:01 | DR.H&P ---
H&P - History & Physical for Day of: H&P Date: 07/27/18 - Chief Complaint Chief Complaint: COUGH, SHORTNESS OF BREATH, WEAKNESS - History of Present Illness History of Present Illness: IS A 82 YEAR OLD PATIENT OF OURS WHO PRESENTED TO THE HOSPITAL A DIRECT ADMISSION. SHE WAS SEEN IN THE OFFICE FOR COMPLAINTS OF COUGH, SHORTNESS OF BREATH, WHEEZING, AND GENERALIZED WEAKNESS. SYMPTOMS REPORTEDLY STARTED ONE WEEK AGO. SHE WAS TREATED WITH OMNICEF AND WAS ALSO GIVEN ROCEPHIN 1GM IM X 1 DOSE YESTERDAY. SYMPTOMS HAVE PROGRESSIVELY GOTTEN WORSE. WE ADMITTED PATIENT FOR FURTHER EVALUATION AND TREATMENT OF BRONCHOPNEUMONIA. ON ADMISSION, VITALS WERE 98.4-77-12-93%-157/81. LABS WERE OBTAINED. ABNORMAL LAB VALUES INCLUDE THE FOLLOWING: CARBON DIOXIDE 32.7, CREATININE 2.03, GLUCOSE 107, ALT 111. A CHEST XRAY WAS OBTAINED AND REVEALED: The trachea is midline. The cardiac silhouette is stably enlarged with continued low lung volumes with prominent interstitium and perihilar lung markings. No overt edema, large effusion, large consolidation or pneumothorax. Soft tissues are unremarkable. Osseous structures are unremarkable. SHE WAS STARTED ON THE PNEUMONIA PROTOCOL WITH FORTAZ AND LEVAQUIN. SHE WAS ALSO STARTED ON DUONEBS AND SUPPLEMENTAL OXYGEN. WE PLAN TO FOLLOW UP WITH AM LABS AND CHEST XRAY AND CONTINUE TO MONITOR PATIENT. - Past Medical History Past Medical History: Coronary Artery Disease, Hypertension, Dyslipidemia, Diabetes, Hypothyroidism, Anemia, GERD, Arthritis, Kidney Stones, CHF Additional Medical History: Vision Deficit, Parkinson's Disease, Atrial Fibrillation, Bronchitis, Pneumonia, Constipation, Diarrhea, Colon Cancer, Breast Cancer, Urinary Tract Infections, Muscle Weakness, Back Pain, Neuropathy , Previous Blood Transfusion - Past Surgical History Surgical History: Abdominal Surgery, Appendectomy, Bowel Resection, Cholecystectomy, Hysterectomy, Ortho Surgery, Tonsillectomy Additional Surgical History: Pacemaker, Two Colon Resection's for Colon Cancer, Left Partial Mastectomy for Breast Cancer, Right Chest Wall Port a cath, Left PAU - Family History Family Medical History: Diabetes Mellitus, [place], Hypertension - Social History Does patient currently use any type of tobacco product: No Have you used tobacco products in the last 12 months: No Type of Tobacco Use: None Alcohol Use: None Drug Use: None - Medications Home Medications: latex Allergy (Verified 06/28/18 17:09) ADHESIVE TAPE Allergy (Uncoded 06/28/18 17:09) CONTINUE taking the following medications cefdinir 300 mg PO Q12H 07/27/18 [History] cyanocobalamin (vitamin B-12) 500 mcg IM WEEKLY 07/27/18 [History] hydrocodone-chlorpheniramine 1 tsp PO Q12W PRN 07/27/18 [History] - Review of Systems Constitutional: Fever, Weakness Eyes: No Symptoms Reported ENT: No Symptoms Reported Respiratory: Cough, Shortness of Breath, Wheezing Cardiovascular: No Symptoms Reported Gastrointestinal: No Symptoms Reported Genitourinary: No Symptoms Reported Musculoskeletal: No Symptoms Reported Skin: No Symptoms Reported Neurological: Weakness - Physical Exam Vital Signs: Temperature 97.2 F Pulse Rate [Apical] 65 Pulse Rate 74 Respiratory Rate 18 Blood Pressure [Left Calf] 149/72 Blood Pressure [Right Arm] 175/84 Blood Pressure [Left Arm] 182/98 Blood Pressure 176/92 O2 Sat by Pulse Oximetry 97 Oriented: Normal Eyes: Normal Ear: Normal Nose: Normal Throat: Normal Respiratory: Wheezes Throughout Cardiovascular: Normal. negative: S3, S4, Murmur : Normal Auscultation: Bowel Sounds: Normal Palpation: Normal Tenderness: Normal Skin: Normal Musculoskeletal: Normal Psychiatric: Normal Mood Description: Calm Affect: Normal Speech Pattern: Clear - Assessment/Plan (1) Bronchopneumonia Status: Acute Plan: IV FORTAZ, IV LEVAQUIN, RESPIRATORY TREATMENTS, SUPPLEMENTAL OXYGEN, CONTINUE TO MONITOR (2) Generalized weakness Status: Acute - Allergies Allergies/Adverse Reactions: Allergies Allergy/AdvReac Type Severity Reaction Status Date / Time latex Allergy Verified 06/28/18 17:09 ADHESIVE TAPE Allergy Uncoded 06/28/18 17:09
[2018-07-28] MEDS: TUSSIONEX PENNKINETIC SUSP PO PRN (22:51)
[2018-07-29] MEDS: NORCO 7.5/325 MG TAB PO PRN ×3 (00:32→20:13)
[2018-07-29] MEDS: NS 1/2 1000 ML IV 1,000 ML IV SCH ×3 (01:30→17:08)
[2018-07-29] MEDS ORDERED: NS 1/2 1000 ML IV 1,000 ML IV ONE ×2 (02:13→17:02)
[2018-07-29] MEDS: SOLU-Medrol 40 MG VIAL IVP SCH ×3 (05:32→21:50)
[2018-07-29 05:57] LABS: BASOPHILS % (AUTO) 0.2 % (0.2-1.0); HEMATOCRIT 38.4 % (36.0-47.0); HEMOGLOBIN 13.2 g/dL (12.0-16.0); LYMPHOCYTES # (AUTO) 1.4 X10^3/uL (1.3-2.9); LYMPHOCYTES % (AUTO) 14.9 % (21.0-51.0); MEAN CORPUSCULAR HEMOGLOBIN 33.6 pg (27.0-34.0); MEAN CORPUSCULAR HGB CONC 34.3 g/dL (33.0-35.0); MEAN CORPUSCULAR VOLUME 97.8 fL (80.0-100.0); MEAN PLATELET VOLUME 8.2 fL (7.4-11.0); MONOCYTES # (AUTO) 0.2 x10^3/uL (0.3-0.8); MONOCYTES % (AUTO) 2.4 % (0.0-13.0); NEUTROPHILS # (AUTO) 7.7 x10^3/uL (2.2-4.8); NEUTROPHILS % (AUTO) 82.5 % (42.0-75.0); PLATELET COUNT 187 X10^3/uL (150.0-450.0); RED BLOOD COUNT 3.92 X10^6/uL (3.5-5.4); RED CELL DISTRIBUTION WIDTH 13.1 % (11.6-16.5); WHITE BLOOD COUNT 9.4 X10^3/uL (3.6-10.0)
[2018-07-29 06:09] LABS: ALBUMIN 3.2 g/dL (3.4-5.0); COR CA(FOR HYPOALB) 9.6 mg/dL (8.5-10.1); CREATININE 1.63 mg/dL (0.55-1.02); TOTAL PROTEIN 6.6 g/dL (6.4-8.2)
[2018-07-29] MEDS: COREG TAB 6.25 MG PO SCH ×2 (06:42→17:07)
--- NOTE | 2018-07-29 06:44 | RAD ---
Examination: AP chest History: SOB Comparison 07/28/2018 Findings: Stable heart size and pacemaker position. Right IJ injection port noted. Minimal atelectasi s right base has improved. There is no new abnormality. Impression: No significant abnormality noted. Minimal atelectasis suggested right lower lung. Reported By:
[2018-07-29] MEDS ORDERED: NORVASC TAB 5 MG PO SCH ×2 (09:00→11:00)
[2018-07-29] MEDS: KLONOPIN TAB 0.5 MG PO SCH ×2 (09:03→20:07)
[2018-07-29] MEDS: ZESTRIL TAB 10 MG PO SCH (09:03)
[2018-07-29] MEDS: PEPCID TAB 20 MG PO SCH ×2 (09:03→20:09)
[2018-07-29] MEDS: ROBITUSSIN DM PO SCH ×5 (09:03→20:11)
[2018-07-29] MEDS: FORTAZ or TAZICEF VIAL INJ IVP SCH ×2 (09:03→21:50)
[2018-07-29] MEDS: DUONEB 0.5 MG/3 MG NEB SCH ×4 (09:57→20:21)
[2018-07-29] MEDS ORDERED: NORCO 7.5/325 MG TAB PO PRN (10:54)
[2018-07-29] MEDS ORDERED: ATIVAN TAB 0.5 MG PO PRN (10:54)
[2018-07-29] MEDS ORDERED: ZOFRAN TAB 4 MG PO PRN (10:54)
[2018-07-29] MEDS ORDERED: CATAPRES-TTS-2 TD SCH (11:00)
[2018-07-29] MEDS ORDERED: CARBIDOPA LEVODOPA PO SCH (11:00)
[2018-07-29] MEDS ORDERED: COREG TAB 6.25 MG PO SCH (11:00)
[2018-07-29] MEDS ORDERED: ZESTRIL TAB 10 MG PO SCH (11:00)
[2018-07-29] MEDS ORDERED: PEPCID TAB 20 MG PO SCH (11:00)
[2018-07-29] MEDS: ELIQUIS PO SCH ×2 (11:36→20:06)
[2018-07-29] MEDS: HEMOCYTE-PLUS PO SCH (11:37)
[2018-07-29] MEDS: SINEMET (PLAIN) 25/250 MG PO SCH ×2 (14:01→21:50)
[2018-07-29] MEDS: NEURONTIN CAP 300 MG PO SCH ×2 (14:01→21:50)
[2018-07-29] MEDS ORDERED: NORVASC TAB 5 MG PO ONE (15:31)
[2018-07-29] MEDS ORDERED: CATAPRES TAB 0.1 MG PO PRN (15:32)
[2018-07-29] MEDS: SYNTHROID 100 mcg TAB PO SCH (17:07)
[2018-07-29] MEDS ORDERED: NS 100 ML IV + SPIKE MINIBAG* 100 ML IV ONE (19:51)
[2018-07-29] MEDS: LEVAQUIN PREMIX IV 750 MG 750 MG/150 ML BAG IV SCH (19:59)
[2018-07-29] MEDS: ARICEPT TAB 10 MG PO SCH (20:04)
[2018-07-29] MEDS: COLACE CAP 100 MG PO SCH (20:06)
[2018-07-29] MEDS: LIPITOR TAB 10 MG PO SCH (20:08)
[2018-07-29] MEDS: LASIX PO SCH (20:08)
[2018-07-29] MEDS: PROTONIX TAB 40 MG PO SCH (20:09)
[2018-07-29] MEDS: SENOKOT PO SCH (20:10)
[2018-07-29] MEDS: REQUIP PO SCH (20:10)
[2018-07-29] MEDS: TUSSIONEX PENNKINETIC SUSP PO PRN (20:10)
[2018-07-29] MEDS ORDERED: PATIENT'S HOME MEDICATION (Sennosides-Docusate Sodium [Senna-S] 2 TAB) PO SCH (21:00)
[2018-07-30] MEDS: NEURONTIN CAP 300 MG PO SCH ×3 (06:00→22:30)
[2018-07-30] MEDS: SINEMET (PLAIN) 25/250 MG PO SCH ×3 (06:00→22:30)
[2018-07-30 06:28] LABS: BASOPHILS % (AUTO) 0.2 % (0.2-1.0); HEMATOCRIT 38.7 % (36.0-47.0); HEMOGLOBIN 13.2 g/dL (12.0-16.0); LYMPHOCYTES # (AUTO) 1.3 X10^3/uL (1.3-2.9); LYMPHOCYTES % (AUTO) 9.9 % (21.0-51.0); MEAN CORPUSCULAR HEMOGLOBIN 33.3 pg (27.0-34.0); MEAN CORPUSCULAR HGB CONC 34.1 g/dL (33.0-35.0); MEAN CORPUSCULAR VOLUME 97.6 fL (80.0-100.0); MEAN PLATELET VOLUME 8.3 fL (7.4-11.0); MONOCYTES # (AUTO) 0.4 x10^3/uL (0.3-0.8); MONOCYTES % (AUTO) 3.2 % (0.0-13.0); NEUTROPHILS # (AUTO) 11.8 x10^3/uL (2.2-4.8); NEUTROPHILS % (AUTO) 86.7 % (42.0-75.0); PLATELET COUNT 208 X10^3/uL (150.0-450.0); RED BLOOD COUNT 3.96 X10^6/uL (3.5-5.4); WHITE BLOOD COUNT 13.6 X10^3/uL (3.6-10.0)
[2018-07-30] MEDS: SOLU-Medrol 40 MG VIAL IVP SCH ×3 (06:31→22:30)
[2018-07-30] MEDS: COREG TAB 6.25 MG PO SCH ×2 (06:31→16:30)
[2018-07-30 06:32] LABS: ALBUMIN 3.2 g/dL (3.4-5.0); CALCIUM 9.2 mg/dL (8.5-10.1); CARBON DIOXIDE 26.5 mmol/L (21-32); COR CA(FOR HYPOALB) 9.8 mg/dL (8.5-10.1); CREATININE 1.47 mg/dL (0.55-1.02); TOTAL PROTEIN 6.5 g/dL (6.4-8.2)
--- NOTE | 2018-07-30 07:03 | RAD ---
Examination: AP chest History: SOB Comparison 07/29/2018 Findings: Stable heart size with no change in position of cardiac pacing device or right IJ injection port. Essentially clear lungs and pleural spaces. Impression: No acute cardiac, pulmonary or pleural lesion demonstrated. Reported By:
[2018-07-30] MEDS: ROBITUSSIN DM PO SCH ×6 (08:59→20:53)
[2018-07-30] MEDS: FORTAZ or TAZICEF VIAL INJ IVP SCH ×2 (08:59→20:40)
[2018-07-30] MEDS: ELIQUIS PO SCH ×2 (09:00→20:43)
[2018-07-30] MEDS: LASIX PO SCH ×2 (09:00→20:41)
[2018-07-30] MEDS: MICRO K EXTEN CAP 10 MEQ PO SCH (09:01)
[2018-07-30] MEDS: CELEXA PO SCH (09:01)
[2018-07-30] MEDS: HEMOCYTE-PLUS PO SCH (09:01)
[2018-07-30] MEDS: PEPCID TAB 20 MG PO SCH ×2 (09:01→20:44)
[2018-07-30] MEDS: KLONOPIN TAB 0.5 MG PO SCH ×2 (09:01→20:42)
[2018-07-30] MEDS: NORVASC TAB 5 MG PO SCH (09:02)
[2018-07-30] MEDS: DETROL LA 4 MG CAP EXT REL PO SCH (09:02)
[2018-07-30] MEDS: PROTONIX TAB 40 MG PO SCH ×2 (09:02→20:42)
[2018-07-30] MEDS: ZESTRIL TAB 10 MG PO SCH (09:02)
[2018-07-30] MEDS: TUSSIONEX PENNKINETIC SUSP PO PRN (09:15)
[2018-07-30] MEDS: DUONEB 0.5 MG/3 MG NEB SCH ×4 (09:42→21:54)
[2018-07-30] MEDS ORDERED: NS 1/2 1000 ML IV 1,000 ML IV ONE (09:55)
[2018-07-30] MEDS: NS 1/2 1000 ML IV 1,000 ML IV SCH ×2 (10:15→17:22)
[2018-07-30] MEDS ORDERED: PHARMACY CONSULT - DOSE _____ XX SCH (12:00)
[2018-07-30] MEDS: MILK OF MAGNESIA PO SCH ×2 (13:52→20:43)
[2018-07-30] MEDS ORDERED: DIFLUCAN 200 MG IV PREMIX* 200 MG/100 ML BAG IV NR (14:00)
[2018-07-30] MEDS: SYNTHROID 100 mcg TAB PO SCH (16:30)
[2018-07-30] MEDS ORDERED: NS 100 ML IV + SPIKE MINIBAG* 100 ML IV ONE (20:37)
[2018-07-30] MEDS: ARICEPT TAB 10 MG PO SCH (20:41)
[2018-07-30] MEDS: COLACE CAP 100 MG PO SCH (20:41)
[2018-07-30] MEDS: SENOKOT PO SCH (20:41)
[2018-07-30] MEDS: LIPITOR TAB 10 MG PO SCH (20:42)
[2018-07-30] MEDS: REQUIP PO SCH (20:44)
[2018-07-31] MEDS: SOLU-Medrol 40 MG VIAL IVP SCH (05:50)
[2018-07-31] MEDS: SINEMET (PLAIN) 25/250 MG PO SCH ×3 (05:50→21:15)
[2018-07-31] MEDS: NEURONTIN CAP 300 MG PO SCH ×3 (05:50→21:15)
[2018-07-31] MEDS: COREG TAB 6.25 MG PO SCH ×2 (05:50→16:31)
[2018-07-31 06:35] LABS: BASOPHILS % (AUTO) 0.1 % (0.2-1.0); HEMATOCRIT 37.4 % (36.0-47.0); HEMOGLOBIN 12.9 g/dL (12.0-16.0); LYMPHOCYTES % (AUTO) 9.4 % (21.0-51.0); MEAN CORPUSCULAR HEMOGLOBIN 33.6 pg (27.0-34.0); MEAN CORPUSCULAR HGB CONC 34.3 g/dL (33.0-35.0); MEAN CORPUSCULAR VOLUME 97.8 fL (80.0-100.0); MEAN PLATELET VOLUME 8.7 fL (7.4-11.0); MONOCYTES # (AUTO) 0.3 x10^3/uL (0.3-0.8); MONOCYTES % (AUTO) 3.2 % (0.0-13.0); NEUTROPHILS # (AUTO) 9.6 x10^3/uL (2.2-4.8); NEUTROPHILS % (AUTO) 87.3 % (42.0-75.0); PLATELET COUNT 209 X10^3/uL (150.0-450.0); RED BLOOD COUNT 3.83 X10^6/uL (3.5-5.4); RED CELL DISTRIBUTION WIDTH 13.3 % (11.6-16.5)
[2018-07-31 06:45] LABS: CALCIUM 8.7 mg/dL (8.5-10.1); CARBON DIOXIDE 27.5 mmol/L (21-32); COR CA(FOR HYPOALB) 9.5 mg/dL (8.5-10.1); CREATININE 1.67 mg/dL (0.55-1.02)
[2018-07-31] MEDS ORDERED: NS 100 ML IV + SPIKE MINIBAG* 100 ML IV ONE (08:02)
[2018-07-31] MEDS: ROBITUSSIN DM PO SCH ×4 (08:13→21:16)
[2018-07-31] MEDS: PROTONIX TAB 40 MG PO SCH ×2 (08:13→21:15)
[2018-07-31] MEDS: FORTAZ or TAZICEF VIAL INJ IVP SCH (08:14)
[2018-07-31] MEDS: ZESTRIL TAB 10 MG PO SCH (08:14)
[2018-07-31] MEDS: CELEXA PO SCH (08:14)
[2018-07-31] MEDS: MICRO K EXTEN CAP 10 MEQ PO SCH (08:14)
[2018-07-31] MEDS: HEMOCYTE-PLUS PO SCH (08:14)
[2018-07-31] MEDS: PEPCID TAB 20 MG PO SCH ×2 (08:14→21:15)
[2018-07-31] MEDS: ELIQUIS PO SCH ×2 (08:15→21:15)
[2018-07-31] MEDS: KLONOPIN TAB 0.5 MG PO SCH ×2 (08:15→21:15)
[2018-07-31] MEDS: LASIX PO SCH ×2 (08:15→21:14)
[2018-07-31] MEDS: NORVASC TAB 5 MG PO SCH (08:16)
[2018-07-31] MEDS: NS 1/2 1000 ML IV 1,000 ML IV SCH ×2 (08:16→21:16)
[2018-07-31] MEDS: DETROL LA 4 MG CAP EXT REL PO SCH (08:17)
[2018-07-31] MEDS: MILK OF MAGNESIA PO SCH ×2 (08:17→21:16)
[2018-07-31] MEDS: DIFLUCAN PO SCH (08:18)
[2018-07-31] MEDS ORDERED: DIFLUCAN 100 MG IV (MIX by PHARMACY)* 100 MG/50 ML BAG IV SCH (09:00)
[2018-07-31] MEDS: DUONEB 0.5 MG/3 MG NEB SCH ×4 (09:47→21:55)
[2018-07-31] MEDS: NORCO 7.5/325 MG TAB PO PRN ×2 (10:12→21:17)
[2018-07-31] MEDS: TESSALON PERLES PO SCH ×3 (10:14→21:14)
[2018-07-31] MEDS ORDERED: NS 1/2 1000 ML IV 1,000 ML IV ONE (10:44)
[2018-07-31] MEDS: SYNTHROID 100 mcg TAB PO SCH ×2 (13:32→16:31)
[2018-07-31] MEDS: HumuLIN R SC PRN ×2 (16:30→22:38)
--- NOTE | 2018-07-31 19:38 | PCM.PROG ---
Progress Note - Progress Note for Day of Date of Exam: 07/31/18 - Subjective Subjective: WAS ADMITTED FOR BRONCHOPNEUMONIA AND GENERALIZED WEAKNESS. TODAY, SHE IS ALERT AND ORIENTED, LYING IN BED ON MORNING ROUNDS. SHE CONTINUES WITH COMPLAINTS OF COUGH, SHORTNESS OF BREATH, AND GENERALIZED WEAKNESS. SHE HAS BEEN AFEBRILE. HER VITALS THIS MORNING ARE 97.9-72-26-96%-184/ 93. ABNORMAL LAB VALUES INCLUDE THE FOLLOWING: WBC 11.0, BUN 32, CREATININE 1.67 , GLUCOSE 277, TOTAL PROTEIN 6.0, ALBUMIN 3.0. SHE CONTINUES ON IV FORTAZ AND LEVAQUIN WELL RESPIRATORY TREATMENTS, SUPPLEMENTAL OXYGEN, AND TUSSIONEX. TODAY, WE WILL ADD TESSALON PERLES TID. OTHERWISE, WE WILL FOLLOW UP WITH AM LABS AND CONTINUE TO MONITOR PATIENT. - Past Medical Family Social History Past Med/Fam/Surg Hx: No changes since H&P Allergies: Allergies latex Allergy (Verified 06/28/18 17:09) ADHESIVE TAPE Allergy (Uncoded 06/28/18 17:09) - Review of Systems ROS: No change since H&P - Vital Signs and I&O's Vital Signs: Temperature 97.4 F Pulse Rate [Apical] 66 Pulse Rate 67 Respiratory Rate 20 Blood Pressure [Left Calf] 149/72 Blood Pressure [Right Arm] 175/82 Blood Pressure [Left Arm] 146/70 Blood Pressure 170/90 O2 Sat by Pulse Oximetry 96 Intake and Output: Intake & Output 07/29/18 07/30/18 07/31/18 08/01/18 11:59 11:59 11:59 11:59 Intake Total 2886 / 2886 1914 3723 / 3723 1130 / 1130 Output Total 1500 / 1500 Balance 2886 / 2886 1914 2223 / 2223 1130 / 1130 - Physical Exam Oriented: Normal Eyes: Normal Ear: Normal Nose: Normal Throat: Normal Respiratory: Generalized, Diminished Cardiovascular: Normal. negative: S3, S4, Murmur : Normal Auscultation: Bowel Sounds: Normal Palpation: Normal Tenderness: Normal Skin: Normal Musculoskeletal: Normal Psychiatric: Normal Mood Description: Calm Affect: Normal Speech Pattern: Clear, Appropriate - Laboratory and Diagnostics Result Diagrams: 07/31/18 05:55 07/31/18 05:55 Labs: 07/27/18 18:00 Blood Blood Culture - Preliminary 07/27/18 17:55 Blood Blood Culture - Preliminary 07/27/18 20:26 Sputum - Expectorated Sputum Sputum Culture - Final 07/27/18 20:26 Sputum - Expectorated Sputum - Final Laboratory WBC 11.0 X10^3/uL (3.6-10.0) H 07/31/18 05:55 RBC 3.83 X10^6/uL (3.5-5.4) 07/31/18 05:55 Hgb 12.9 g/dL (12.0-16.0) 07/31/18 05:55 Hct 37.4 % (36.0-47.0) 07/31/18 05:55 MCV 97.8 fL (80.0-100.0) 07/31/18 05:55 MCH 33.6 pg (27.0-34.0) 07/31/18 05:55 MCHC 34.3 g/dL (33.0-35.0) 07/31/18 05:55 RDW 13.3 % (11.6-16.5) 07/31/18 05:55 Plt Count 209 X10^3/uL (150.0-450.0) 07/31/18 05:55 MPV 8.7 fL (7.4-11.0) 07/31/18 05:55 Neut % (Auto) 87.3 % (42.0-75.0) H 07/31/18 05:55 Lymph % (Auto) 9.4 % (21.0-51.0) L 07/31/18 05:55 [place] % (Auto) 3.2 % (0.0-13.0) 07/31/18 05:55 Eos % (Auto) 0.0 % (0.9-2.9) L 07/31/18 05:55 Baso % (Auto) 0.1 % (0.2-1.0) L 07/31/18 05:55 Neut # (Auto) 9.6 x10^3/uL (2.2-4.8) H 07/31/18 05:55 Lymph # (Auto) 1.0 X10^3/uL (1.3-2.9) L 07/31/18 05:55 [place] # (Auto) 0.3 x10^3/uL (0.3-0.8) 07/31/18 05:55 Eos # (Auto) 0.0 x10^3/uL (0.0-0.2) 07/31/18 05:55 Baso # (Auto) 0.0 X10^3/uL (0.0-0.1) 07/31/18 05:55 Absolute Nucleated RBC 0.0 /100WBC 07/31/18 05:55 ESR 8 MM/HOUR (0-20) 07/28/18 10:30 Sodium 137 mmol/L (136-145) 07/31/18 05:55 Corrected Sodium 141 mmol/L (136-145) 07/31/18 05:55 Potassium 4.2 mmol/L (3.5-5.1) 07/31/18 05:55 Chloride 102 mmol/L (98-107) 07/31/18 05:55 Carbon Dioxide 27.5 mmol/L (21-32) 07/31/18 05:55 BUN 32 mg/dL (7-18) H 07/31/18 05:55 Creatinine 1.67 mg/dL (0.55-1.02) H 07/31/18 05:55 Est GFR (MDRD) Af Amer 38 (>60) L 07/31/18 05:55 Est GFR (MDRD) Non-Af 31 (>60) L 07/31/18 05:55 Glucose 277 mg/dL (65-99) H 07/31/18 05:55 Calcium 8.7 mg/dL (8.5-10.1) 07/31/18 05:55 Corrected Calcium 9.5 mg/dL (8.5-10.1) 07/31/18 05:55 Magnesium 1.9 mg/dL (1.7-2.9) 07/28/18 03:50 Total Bilirubin 0.30 mg/dL (0.2-1.0) 07/31/18 05:55 AST 17 Units/L (15-37) 07/31/18 05:55 ALT 14 Units/L (12-78) 07/31/18 05:55 Alkaline Phosphatase 51 Units/L (46-116) 07/31/18 05:55 Creatine Kinase 73 Units/L (26-192) 07/28/18 07:30 CK-MB (CK-2) 1.1 ng/mL (0-4.0) 07/28/18 07:30 CK/CKMB % Calc 1.5 % (<4) 07/28/18 07:30 Troponin I < 0.02 ng/mL (0-1.5) 07/28/18 07:30 C-Reactive Protein 2.70 mg/L (0-3.0) 07/28/18 03:50 Total Protein 6.0 g/dL (6.4-8.2) L 07/31/18 05:55 Albumin 3.0 g/dL (3.4-5.0) L 07/31/18 05:55 Globulin 3.0 g/dL (2.5-4.5) 07/31/18 05:55 Albumin/Globulin Ratio 1.0 Ratio (1.1-2.1) L 07/31/18 05:55 - Plan (1) Bronchopneumonia Status: Acute Plan: IV FORTAZ, IV LEVAQUIN, RESPIRATORY TREATMENTS, SUPPLEMENTAL OXYGEN, TUSSIONEX, TESSALON PERLES, CONTINUE TO MONITOR (2) Generalized weakness Status: Acute
[2018-07-31] MEDS: LEVAQUIN PREMIX IV 750 MG 750 MG/150 ML BAG IV SCH (21:14)
[2018-07-31] MEDS: SENOKOT PO SCH (21:14)
[2018-07-31] MEDS: ARICEPT TAB 10 MG PO SCH (21:15)
[2018-07-31] MEDS: LIPITOR TAB 10 MG PO SCH (21:15)
[2018-07-31] MEDS: REQUIP PO SCH (21:15)
[2018-07-31] MEDS: COLACE CAP 100 MG PO SCH (21:15)
[2018-08-01] MEDS ORDERED: NS 1/2 1000 ML IV 1,000 ML IV ONE ×2 (01:15→17:31)
[2018-08-01] MEDS: NS 1/2 1000 ML IV 1,000 ML IV SCH ×3 (01:32→17:33)
[2018-08-01] MEDS: HumuLIN R SC PRN ×2 (01:39→05:55)
[2018-08-01 05:52] LABS: BASOPHILS % (AUTO) 0.2 % (0.2-1.0); HEMATOCRIT 36.1 % (36.0-47.0); HEMOGLOBIN 12.3 g/dL (12.0-16.0); LYMPHOCYTES # (AUTO) 1.5 X10^3/uL (1.3-2.9); MEAN CORPUSCULAR HEMOGLOBIN 33.7 pg (27.0-34.0); MEAN CORPUSCULAR HGB CONC 34.2 g/dL (33.0-35.0); MEAN CORPUSCULAR VOLUME 98.6 fL (80.0-100.0); MEAN PLATELET VOLUME 8.2 fL (7.4-11.0); MONOCYTES # (AUTO) 1.3 x10^3/uL (0.3-0.8); MONOCYTES % (AUTO) 11.1 % (0.0-13.0); NEUTROPHILS # (AUTO) 8.7 x10^3/uL (2.2-4.8); NEUTROPHILS % (AUTO) 75.7 % (42.0-75.0); PLATELET COUNT 197 X10^3/uL (150.0-450.0); RED BLOOD COUNT 3.67 X10^6/uL (3.5-5.4); RED CELL DISTRIBUTION WIDTH 13.7 % (11.6-16.5); WHITE BLOOD COUNT 11.5 X10^3/uL (3.6-10.0)
[2018-08-01] MEDS: NORCO 7.5/325 MG TAB PO PRN (05:54)
[2018-08-01] MEDS: NEURONTIN CAP 300 MG PO SCH ×3 (05:54→21:33)
[2018-08-01] MEDS: SINEMET (PLAIN) 25/250 MG PO SCH ×3 (05:54→21:33)
[2018-08-01] MEDS: TESSALON PERLES PO SCH ×3 (05:54→21:34)
[2018-08-01] MEDS: COREG TAB 6.25 MG PO SCH ×2 (05:54→16:44)
[2018-08-01] MEDS: SYNTHROID 100 mcg TAB PO SCH (05:54)
[2018-08-01 06:09] LABS: ALBUMIN 2.8 g/dL (3.4-5.0); CALCIUM 8.2 mg/dL (8.5-10.1); CARBON DIOXIDE 27.5 mmol/L (21-32); COR CA(FOR HYPOALB) 9.2 mg/dL (8.5-10.1); CREATININE 1.58 mg/dL (0.55-1.02); TOTAL PROTEIN 5.6 g/dL (6.4-8.2)
[2018-08-01] MEDS ORDERED: NS 100 ML IV 100 ML IV ONE (07:57)
[2018-08-01] MEDS: MICRO K EXTEN CAP 10 MEQ PO SCH (08:07)
[2018-08-01] MEDS: ELIQUIS PO SCH ×2 (08:08→21:33)
[2018-08-01] MEDS: NORVASC TAB 5 MG PO SCH (08:08)
[2018-08-01] MEDS: ROBITUSSIN DM PO SCH ×4 (08:08→21:35)
[2018-08-01] MEDS: CELEXA PO SCH (08:09)
[2018-08-01] MEDS: PEPCID TAB 20 MG PO SCH ×2 (08:09→21:32)
[2018-08-01] MEDS: KLONOPIN TAB 0.5 MG PO SCH ×2 (08:09→21:33)
[2018-08-01] MEDS: ZESTRIL TAB 10 MG PO SCH (08:09)
[2018-08-01] MEDS: FORTAZ or TAZICEF VIAL INJ IVP SCH (08:10)
[2018-08-01] MEDS: HEMOCYTE-PLUS PO SCH (08:10)
[2018-08-01] MEDS: PROTONIX TAB 40 MG PO SCH ×2 (08:10→21:32)
[2018-08-01] MEDS: MILK OF MAGNESIA PO SCH ×2 (08:10→21:35)
[2018-08-01] MEDS: DETROL LA 4 MG CAP EXT REL PO SCH (08:10)
[2018-08-01] MEDS: DIFLUCAN PO SCH (08:11)
[2018-08-01] MEDS: AMARYL TAB 4 MG PO SCH ×2 (09:14→21:34)
[2018-08-01] MEDS: DUONEB 0.5 MG/3 MG NEB SCH ×4 (09:32→20:16)
--- NOTE | 2018-08-01 10:26 | PCM.PROG ---
Progress Note - Progress Note for Day of Date of Exam: 08/01/18 - Subjective Subjective: WAS ADMITTED FOR BRONCHOPNEUMONIA AND GENERALIZED WEAKNESS. TODAY, SHE IS ALERT AND ORIENTED, LYING IN BED ON MORNING ROUNDS. SHE CONTINUES WITH COMPLAINTS OF COUGH, SHORTNESS OF BREATH, AND GENERALIZED WEAKNESS. ON EXAMINATION, HEART IS REGULAR IN RATE AND RHYTHM. BILATERAL LUNGS ARE NOTED WITH SCATTERED WHEEZING THROUGHOUT. ABDOMEN IS ROUND, SOFT, AND NON- TENDER WITH NORMAL BOWEL SOUNDS NOTEDI N ALL QUADRANTS. HER VITALS THIS MORNING ARE 97.4-62-22-95%-157/86. LABS WERE OBTAINED. ABNORMAL LAB VALUES INCLUDE THE FOLLOWING: WBC 11.5, BUN 36, CREATININE 1.56, GLUCOSE 249, CALCIUM 8.2, TOTAL PROTEIN 5.6, ALBUMIN 2.8. SHE CONTINUES ON IV FORTAZ AND LEVAQUIN WELL RESPIRATORY TREATMENTS, SUPPLEMENTAL OXYGEN, AND TUSSIONEX. SHE WAS STARTED ON SLIDING SCALE INSULIN YESTERDAY DUE TO ELEVATED BLOOD GLUCOSE. WE VIC LRESUME HER GLIPIZIDE TODAY. OTHERWISE, WE WILL FOLLOW UP WITH AM LABS AND CHEST XRAY AND CONTINUE TO MONITOR PATIENT. - Past Medical Family Social History Past Med/Fam/Surg Hx: No changes since H&P Allergies: Allergies latex Allergy (Verified 06/28/18 17:09) ADHESIVE TAPE Allergy (Uncoded 06/28/18 17:09) - Review of Systems ROS: No change since H&P - Vital Signs and I&O's Vital Signs: Temperature 97.4 F Pulse Rate [Apical] 62 Pulse Rate 69 Respiratory Rate 22 Blood Pressure [Left Calf] 149/72 Blood Pressure [Right Arm] 175/82 Blood Pressure [Left Arm] 157/86 Blood Pressure 170/90 O2 Sat by Pulse Oximetry 96 Intake and Output: Intake & Output 07/29/18 07/30/18 07/31/18 08/01/18 11:59 11:59 11:59 11:59 Intake Total 2886 / 2886 1914 / 1914 3723 / 3723 2426 / 2426 Output Total 1500 / 1500 Balance 2886 / 2886 1914 2223 / 2223 2426 / 2426 - Physical Exam Oriented: Normal Eyes: Normal Ear: Normal Nose: Normal Throat: Normal Respiratory: Generalized, Diminished, Wheezes Cardiovascular: Normal. negative: S3, S4, Murmur : Normal Auscultation: Bowel Sounds: Normal Palpation: Normal Tenderness: Normal Skin: Normal Musculoskeletal: Normal Psychiatric: Normal Mood Description: Calm Affect: Normal Speech Pattern: Clear, Appropriate - Laboratory and Diagnostics Result Diagrams: 08/01/18 05:30 08/01/18 05:30 Labs: 07/27/18 18:00 Blood Blood Culture - Preliminary 07/27/18 17:55 Blood Blood Culture - Preliminary 07/27/18 20:26 Sputum - Expectorated Sputum Sputum Culture - Final 07/27/18 20:26 Sputum - Expectorated Sputum - Final Laboratory WBC 11.5 X10^3/uL (3.6-10.0) H 08/01/18 05:30 RBC 3.67 X10^6/uL (3.5-5.4) 08/01/18 05:30 Hgb 12.3 g/dL (12.0-16.0) 08/01/18 05:30 Hct 36.1 % (36.0-47.0) 08/01/18 05:30 MCV 98.6 fL (80.0-100.0) 08/01/18 05:30 MCH 33.7 pg (27.0-34.0) 08/01/18 05:30 MCHC 34.2 g/dL (33.0-35.0) 08/01/18 05:30 RDW 13.7 % (11.6-16.5) 08/01/18 05:30 Plt Count 197 X10^3/uL (150.0-450.0) 08/01/18 05:30 MPV 8.2 fL (7.4-11.0) 08/01/18 05:30 Neut % (Auto) 75.7 % (42.0-75.0) H 08/01/18 05:30 Lymph % (Auto) 13.0 % (21.0-51.0) L 08/01/18 05:30 [place] % (Auto) 11.1 % (0.0-13.0) 08/01/18 05:30 Eos % (Auto) 0.0 % (0.9-2.9) L 08/01/18 05:30 Baso % (Auto) 0.2 % (0.2-1.0) 08/01/18 05:30 Neut # (Auto) 8.7 x10^3/uL (2.2-4.8) H 08/01/18 05:30 Lymph # (Auto) 1.5 X10^3/uL (1.3-2.9) 08/01/18 05:30 [place] # (Auto) 1.3 x10^3/uL (0.3-0.8) H 08/01/18 05:30 Eos # (Auto) 0.0 x10^3/uL (0.0-0.2) 08/01/18 05:30 Baso # (Auto) 0.0 X10^3/uL (0.0-0.1) 08/01/18 05:30 Absolute Nucleated RBC 0.1 /100WBC 08/01/18 05:30 ESR 8 MM/HOUR (0-20) 07/28/18 10:30 Sodium 139 mmol/L (136-145) 08/01/18 05:30 Corrected Sodium 143 mmol/L (136-145) 08/01/18 05:30 Potassium 3.6 mmol/L (3.5-5.1) 08/01/18 05:30 Chloride 104 mmol/L (98-107) 08/01/18 05:30 Carbon Dioxide 27.5 mmol/L (21-32) 08/01/18 05:30 BUN 36 mg/dL (7-18) H 08/01/18 05:30 Creatinine 1.58 mg/dL (0.55-1.02) H 08/01/18 05:30 Est GFR (MDRD) Af Amer 40 (>60) L 08/01/18 05:30 Est GFR (MDRD) Non-Af 33 (>60) L 08/01/18 05:30 Glucose 249 mg/dL (65-99) H 08/01/18 05:30 POC Glucose (mg/dL) 221 mg/dL (65-99) H 08/01/18 05:26 Calcium 8.2 mg/dL (8.5-10.1) L 08/01/18 05:30 Corrected Calcium 9.2 mg/dL (8.5-10.1) 08/01/18 05:30 Magnesium 1.9 mg/dL (1.7-2.9) 07/28/18 03:50 Total Bilirubin 0.30 mg/dL (0.2-1.0) 08/01/18 05:30 AST 17 Units/L (15-37) 08/01/18 05:30 ALT 15 Units/L (12-78) 08/01/18 05:30 Alkaline Phosphatase 52 Units/L (46-116) 08/01/18 05:30 Creatine Kinase 73 Units/L (26-192) 07/28/18 07:30 CK-MB (CK-2) 1.1 ng/mL (0-4.0) 07/28/18 07:30 CK/CKMB % Calc 1.5 % (<4) 07/28/18 07:30 Troponin I < 0.02 ng/mL (0-1.5) 07/28/18 07:30 C-Reactive Protein 2.70 mg/L (0-3.0) 07/28/18 03:50 Total Protein 5.6 g/dL (6.4-8.2) L 08/01/18 05:30 Albumin 2.8 g/dL (3.4-5.0) L 08/01/18 05:30 Globulin 2.8 g/dL (2.5-4.5) 08/01/18 05:30 Albumin/Globulin Ratio 1.0 Ratio (1.1-2.1) L 08/01/18 05:30 - Plan (1) Bronchopneumonia Status: Acute Plan: IV FORTAZ, IV LEVAQUIN, RESPIRATORY TREATMENTS, SUPPLEMENTAL OXYGEN, TUSSIONEX, TESSALON PERLES, CONTINUE TO MONITOR (2) Generalized weakness Status: Acute (3) Diabetes mellitus, type II Status: Chronic Qualifiers: Diabetes mellitus snf insulin use: without snf use Diabetes mellitus complication status: without complication Qualified Code(s): E11.9 - Type 2 diabetes mellitus without complications Plan: SLIDING SCALE INSULIN, MONITOR OTBS, CONTINUE HOME MEDICATIONS (4) CAD (coronary artery disease) Status: Chronic Qualifiers: Coronary Disease-Associated Artery/Lesion type: [place] artery [place] vs. transplanted heart: [place] heart Associated angina: without angina Qualified Code(s): I25.10 - Atherosclerotic heart disease of [place] coronary artery without angina pectoris Plan: CONTINUE HOME MEDICATIONS (5) Depression Status: Chronic Qualifiers: Depression Type: major depressive disorder Major depression recurrence: recurrent Active/Remission status: currently active Major depression episode severity: moderate Qualified Code(s): F33.1 - Major depressive disorder, recurrent, moderate Plan: CONTINUE HOME MEDICATIONS (6) GERD (gastroesophageal reflux disease) Status: Chronic Qualifiers: Esophagitis presence: esophagitis presence not specified Qualified Code(s) : K21.9 - Gastro-esophageal reflux disease without esophagitis Plan: CONTINUE HOME MEDICATIONS (7) HTN (hypertension) Status: Chronic Qualifiers: Hypertension type: essential hypertension Qualified Code(s): I10 - Essential (primary) hypertension Plan: CONTINUE HOME MEDICATIONS (8) Hyperlipidemia Status: Chronic Qualifiers: Hyperlipidemia type: mixed hyperlipidemia Qualified Code(s): E78.2 - Mixed hyperlipidemia Plan: CONTINUE HOME MEDICATIONS (9) Hypothyroid Status: Chronic Qualifiers: Hypothyroidism type: acquired Qualified Code(s): E03.9 - Hypothyroidism, unspecified Plan: CONTINUE HOME MEDICATIONS (10) Parkinson disease Status: Chronic Plan: CONTINUE HOME MEDICATIONS (11) Restless leg syndrome Status: Chronic Plan: CONTINUE HOME MEDICATIONS
[2018-08-01] MEDS: REQUIP PO SCH (21:32)
[2018-08-01] MEDS: ARICEPT TAB 10 MG PO SCH (21:32)
[2018-08-01] MEDS: SENOKOT PO SCH (21:33)
[2018-08-01] MEDS: LIPITOR TAB 10 MG PO SCH (21:34)
[2018-08-01] MEDS: COLACE CAP 100 MG PO SCH (21:34)
[2018-08-02] MEDS: TESSALON PERLES PO SCH ×3 (05:12→20:44)
[2018-08-02] MEDS: NEURONTIN CAP 300 MG PO SCH ×3 (05:12→20:42)
[2018-08-02] MEDS: SYNTHROID 100 mcg TAB PO SCH (05:13)
[2018-08-02] MEDS: SINEMET (PLAIN) 25/250 MG PO SCH ×3 (05:13→20:43)
[2018-08-02] MEDS: NORCO 7.5/325 MG TAB PO PRN (05:16)
[2018-08-02] MEDS: COREG TAB 6.25 MG PO SCH ×2 (05:59→17:55)
[2018-08-02 06:28] LABS: BASOPHILS % (AUTO) 0.3 % (0.2-1.0); EOSINOPHILS # (AUTO) 0.1 x10^3/uL (0.0-0.2); EOSINOPHILS % (AUTO) 1.3 % (0.9-2.9); HEMOGLOBIN 13.2 g/dL (12.0-16.0); LYMPHOCYTES # (AUTO) 2.7 X10^3/uL (1.3-2.9); LYMPHOCYTES % (AUTO) 27.8 % (21.0-51.0); MEAN CORPUSCULAR HEMOGLOBIN 33.5 pg (27.0-34.0); MEAN CORPUSCULAR VOLUME 98.8 fL (80.0-100.0); MEAN PLATELET VOLUME 8.2 fL (7.4-11.0); MONOCYTES % (AUTO) 10.2 % (0.0-13.0); NEUTROPHILS # (AUTO) 5.9 x10^3/uL (2.2-4.8); NEUTROPHILS % (AUTO) 60.4 % (42.0-75.0); PLATELET COUNT 188 X10^3/uL (150.0-450.0); RED BLOOD COUNT 3.95 X10^6/uL (3.5-5.4); RED CELL DISTRIBUTION WIDTH 13.7 % (11.6-16.5); WHITE BLOOD COUNT 9.7 X10^3/uL (3.6-10.0)
[2018-08-02 06:42] LABS: ALBUMIN 2.8 g/dL (3.4-5.0); CARBON DIOXIDE 30.6 mmol/L (21-32); CREATININE 1.52 mg/dL (0.55-1.02); TOTAL PROTEIN 5.6 g/dL (6.4-8.2)
--- NOTE | 2018-08-02 06:55 | RAD ---
HISTORY: Shortness of breath Study: Chest AP portable Comparison: 07/30/2018 Findings: The patient is rotated severely to the right. There is a right-sided port present. There is a left-si ded pacemaker present. The heart is enlarged. No congestive heart failure is noted. The aorta is ecst atic. The lung cordero are clear. No pleural effusions are identified. The bony thorax is unremarkable . IMPRESSION: Mild cardiomegaly without congestive heart failure Lungs remain clear Reported By:
[2018-08-02 07:10] LABS: BAND NEUTROPHILS % 4 % (0-10); PLATELET MORPHOLOGY COMMENT NORMAL (NORMAL)
[2018-08-02] MEDS ORDERED: NS 1/2 1000 ML IV 1,000 ML IV ONE (07:11)
[2018-08-02] MEDS: DUONEB 0.5 MG/3 MG NEB SCH ×4 (08:21→20:45)
[2018-08-02] MEDS ORDERED: NS 100 ML IV + SPIKE MINIBAG* 100 ML IV ONE (09:23)
[2018-08-02] MEDS ORDERED: NS 50 ML IV 0 ML IV ONE (09:24)
[2018-08-02] MEDS: NS 1/2 1000 ML IV 1,000 ML IV SCH (09:27)
[2018-08-02] MEDS: MICRO K EXTEN CAP 10 MEQ PO SCH (09:28)
[2018-08-02] MEDS: KLONOPIN TAB 0.5 MG PO SCH ×2 (09:28→20:44)
[2018-08-02] MEDS: ELIQUIS PO SCH ×2 (09:29→20:42)
[2018-08-02] MEDS: DETROL LA 4 MG CAP EXT REL PO SCH (09:30)
[2018-08-02] MEDS: AMARYL TAB 4 MG PO SCH ×2 (09:31→20:43)
[2018-08-02] MEDS: HEMOCYTE-PLUS PO SCH (09:31)
[2018-08-02] MEDS: CELEXA PO SCH (09:32)
[2018-08-02] MEDS: NORVASC TAB 5 MG PO SCH (09:32)
[2018-08-02] MEDS: PEPCID TAB 20 MG PO SCH ×2 (09:32→20:43)
[2018-08-02] MEDS: FORTAZ or TAZICEF VIAL INJ IVP SCH (09:33)
[2018-08-02] MEDS: ROBITUSSIN DM PO SCH ×4 (09:33→20:44)
[2018-08-02] MEDS: PROTONIX TAB 40 MG PO SCH ×2 (09:33→20:42)
[2018-08-02] MEDS: MILK OF MAGNESIA PO SCH ×2 (09:34→20:44)
[2018-08-02] MEDS: ZESTRIL TAB 10 MG PO SCH (09:35)
[2018-08-02] MEDS: DIFLUCAN PO SCH (09:42)
--- NOTE | 2018-08-02 11:08 | PCM.PROG ---
Progress Note - Progress Note for Day of Date of Exam: 08/02/18 - Subjective Subjective: WAS ADMITTED FOR BRONCHOPNEUMONIA AND GENERALIZED WEAKNESS. TODAY, SHE IS ALERT AND ORIENTED, SITTING UP IN CHAIR ON MORNING ROUNDS. SHE CONTINUES WITH COMPLAINTS OF COUGH, SHORTNESS OF BREATH, AND GENERALIZED WEAKNESS, BUT REPORTS SLIGHT IMPROVEMENT SINCE YESTERDAY. ON EXAMINATION, HEART IS REGULAR IN RATE AND RHYTHM. BILATERAL LUNGS ARE NOTED WITH SCATTERED WHEEZING THROUGHOUT. ABDOMEN IS ROUND, SOFT, AND NON-TENDER WITH NORMAL BOWEL SOUNDS NOTEDI N ALL QUADRANTS. HER VITALS THIS MORNING ARE 97.3-67 -23-96%-96/51. LABS WERE OBTAINED. ABNORMAL LAB VALUES INCLUDE THE FOLLOWING: BUN 27, CREATININE 1.52, GLUCOSE 174, CALCIUM 8.0, TOTAL PROTEIN 5.6, ALBUMIN 2.8. A CHEST XRAY WAS OBTAINED THIS MORNING AND REVEALED: The patient is rotated severely to the right. There is a right-sided port present. There is a left-sided pacemaker present. The heart is enlarged. No congestive heart failure is noted. The aorta is ecstatic. The lung cordero are clear. No pleural effusions are identified. The bony thorax is unremarkable. SHE CONTINUES ON IV FORTAZ AND LEVAQUIN WELL RESPIRATORY TREATMENTS, SUPPLEMENTAL OXYGEN, AND TUSSIONEX. WE WILL CONTINUE WITH CURRENT PLAN OF CARE TODAY. OTHERWISE, WE WILL FOLLOW UP WITH AM LABS AND CHEST XRAY AND CONTINUE TO MONITOR PATIENT. - Past Medical Family Social History Past Med/Fam/Surg Hx: No changes since H&P Allergies: Allergies latex Allergy (Verified 06/28/18 17:09) ADHESIVE TAPE Allergy (Uncoded 06/28/18 17:09) - Review of Systems ROS: No change since H&P - Vital Signs and I&O's Vital Signs: Temperature 97.3 F Pulse Rate [Apical] 68 Pulse Rate 72 Respiratory Rate 14 Blood Pressure [Left Calf] 149/72 Blood Pressure [Right Arm] 175/82 Blood Pressure [Left Arm] 155/78 Blood Pressure 131/71 O2 Sat by Pulse Oximetry 95 Intake and Output: Intake & Output 07/30/18 07/31/18 08/01/18 08/02/18 11:59 11:59 11:59 11:59 Intake Total 1915 / 1915 3723 / 3723 2426 / 2426 2780 / 2780 Output Total 1500 / 1500 1051 / 1051 Balance 1915 / 1914 2223 / 2223 2426 / 2426 1729 / 1729 - Physical Exam Oriented: Normal Eyes: Normal Ear: Normal Nose: Normal Throat: Normal Respiratory: Generalized, Diminished, Wheezes Cardiovascular: Normal. negative: S3, S4, Murmur : Normal Auscultation: Bowel Sounds: Normal Palpation: Normal Tenderness: Normal Skin: Normal Musculoskeletal: Normal Psychiatric: Normal Mood Description: Calm Affect: Normal Speech Pattern: Clear, Appropriate - Laboratory and Diagnostics Result Diagrams: 08/02/18 05:42 08/02/18 05:42 Labs: 07/27/18 18:00 Blood Blood Culture - Final 07/27/18 17:55 Blood Blood Culture - Final 07/27/18 20:26 Sputum - Expectorated Sputum Sputum Culture - Final 07/27/18 20:26 Sputum - Expectorated Sputum - Final Laboratory WBC 9.7 X10^3/uL (3.6-10.0) 08/02/18 05:42 RBC 3.95 X10^6/uL (3.5-5.4) 08/02/18 05:42 Hgb 13.2 g/dL (12.0-16.0) 08/02/18 05:42 Hct 39.0 % (36.0-47.0) 08/02/18 05:42 MCV 98.8 fL (80.0-100.0) 08/02/18 05:42 MCH 33.5 pg (27.0-34.0) 08/02/18 05:42 MCHC 34.0 g/dL (33.0-35.0) 08/02/18 05:42 RDW 13.7 % (11.6-16.5) 08/02/18 05:42 Plt Count 188 X10^3/uL (150.0-450.0) 08/02/18 05:42 Plt Count Comment Adequate (ADEQUATE) 08/02/18 05:42 MPV 8.2 fL (7.4-11.0) 08/02/18 05:42 Neut % (Auto) 60.4 % (42.0-75.0) 08/02/18 05:42 Lymph % (Auto) 27.8 % (21.0-51.0) 08/02/18 05:42 [place] % (Auto) 10.2 % (0.0-13.0) 08/02/18 05:42 Eos % (Auto) 1.3 % (0.9-2.9) 08/02/18 05:42 Baso % (Auto) 0.3 % (0.2-1.0) 08/02/18 05:42 Neut # (Auto) 5.9 x10^3/uL (2.2-4.8) H 08/02/18 05:42 Lymph # (Auto) 2.7 X10^3/uL (1.3-2.9) 08/02/18 05:42 [place] # (Auto) 1.0 x10^3/uL (0.3-0.8) H 08/02/18 05:42 Eos # (Auto) 0.1 x10^3/uL (0.0-0.2) 08/02/18 05:42 Baso # (Auto) 0.0 X10^3/uL (0.0-0.1) 08/02/18 05:42 Absolute Nucleated RBC 0.1 /100WBC 08/02/18 05:42 Total Counted 100 08/02/18 05:42 Neutrophils % (Manual) 62 % (39-76) 08/02/18 05:42 Band Neutrophils % 4 % (0-10) 08/02/18 05:42 Lymphocytes % (Manual) 30 % (13-43) 08/02/18 05:42 Monocytes % (Manual) 4 % (4-9) 08/02/18 05:42 Nucleated RBCs 3 08/02/18 05:42 Plt Morphology Comment Normal (NORMAL) 08/02/18 05:42 RBC Morphology Normal (NORMAL) 08/02/18 05:42 ESR 8 MM/HOUR (0-20) 07/28/18 10:30 Sodium 136 mmol/L (136-145) 08/02/18 05:42 Corrected Sodium 138 mmol/L (136-145) 08/02/18 05:42 Potassium 4.4 mmol/L (3.5-5.1) 08/02/18 05:42 Chloride 102 mmol/L (98-107) 08/02/18 05:42 Carbon Dioxide 30.6 mmol/L (21-32) 08/02/18 05:42 BUN 27 mg/dL (7-18) H 08/02/18 05:42 Creatinine 1.52 mg/dL (0.55-1.02) H 08/02/18 05:42 Est GFR (MDRD) Af Amer 42 (>60) L 08/02/18 05:42 Est GFR (MDRD) Non-Af 35 (>60) L 08/02/18 05:42 Glucose 174 mg/dL (65-99) H 08/02/18 05:42 POC Glucose (mg/dL) 169 mg/dL (65-99) H 08/02/18 05:08 Calcium 8.0 mg/dL (8.5-10.1) L 08/02/18 05:42 Corrected Calcium 9.0 mg/dL (8.5-10.1) 08/02/18 05:42 Magnesium 1.9 mg/dL (1.7-2.9) 07/28/18 03:50 Total Bilirubin 0.30 mg/dL (0.2-1.0) 08/02/18 05:42 AST 21 Units/L (15-37) 08/02/18 05:42 ALT 24 Units/L (12-78) 08/02/18 05:42 Alkaline Phosphatase 53 Units/L (46-116) 08/02/18 05:42 Creatine Kinase 73 Units/L (26-192) 07/28/18 07:30 CK-MB (CK-2) 1.1 ng/mL (0-4.0) 07/28/18 07:30 CK/CKMB % Calc 1.5 % (<4) 07/28/18 07:30 Troponin I < 0.02 ng/mL (0-1.5) 07/28/18 07:30 C-Reactive Protein 2.70 mg/L (0-3.0) 07/28/18 03:50 Total Protein 5.6 g/dL (6.4-8.2) L 08/02/18 05:42 Albumin 2.8 g/dL (3.4-5.0) L 08/02/18 05:42 Globulin 2.8 g/dL (2.5-4.5) 08/02/18 05:42 Albumin/Globulin Ratio 1.0 Ratio (1.1-2.1) L 08/02/18 05:42 - Plan (1) Bronchopneumonia Status: Acute Plan: IV FORTAZ, IV LEVAQUIN, RESPIRATORY TREATMENTS, SUPPLEMENTAL OXYGEN, TUSSIONEX, TESSALON PERLES, CONTINUE TO MONITOR (2) Generalized weakness Status: Acute (3) Diabetes mellitus, type II Status: Chronic Qualifiers: Diabetes mellitus penitentiary insulin use: without watcher automat long goods use Diabetes mellitus complication status: without complication Qualified Code(s): E11.9 - Type 2 diabetes mellitus without complications Plan: SLIDING SCALE INSULIN, MONITOR OTBS, CONTINUE HOME MEDICATIONS (4) CAD (coronary artery disease) Status: Chronic Qualifiers: Coronary Disease-Associated Artery/Lesion type: [place] artery [place] vs. transplanted heart: zuni heart Associated angina: without angina Qualified Code(s): I25.10 - Atherosclerotic heart disease of z[place] coronary artery without angina pectoris Plan: CONTINUE HOME MEDICATIONS (5) Depression Status: Chronic Qualifiers: Depression Type: major depressive disorder Major depression recurrence: recurrent Active/Remission status: currently active Major depression episode severity: moderate Qualified Code(s): F33.1 - Major depressive disorder, recurrent, moderate Plan: CONTINUE HOME MEDICATIONS (6) GERD (gastroesophageal reflux disease) Status: Chronic Qualifiers: Esophagitis presence: esophagitis presence not specified Qualified Code(s) : K21.9 - Gastro-esophageal reflux disease without esophagitis Plan: CONTINUE HOME MEDICATIONS (7) HTN (hypertension) Status: Chronic Qualifiers: Hypertension type: essential hypertension Qualified Code(s): I10 - Essential (primary) hypertension Plan: CONTINUE HOME MEDICATIONS (8) Hyperlipidemia Status: Chronic Qualifiers: Hyperlipidemia type: mixed hyperlipidemia Qualified Code(s): E78.2 - Mixed hyperlipidemia Plan: CONTINUE HOME MEDICATIONS (9) Hypothyroid Status: Chronic Qualifiers: Hypothyroidism type: acquired Qualified Code(s): E03.9 - Hypothyroidism, unspecified Plan: CONTINUE HOME MEDICATIONS (10) Parkinson disease Status: Chronic Plan: CONTINUE HOME MEDICATIONS (11) Restless leg syndrome Status: Chronic Plan: CONTINUE HOME MEDICATIONS
[2018-08-02] MEDS: SENOKOT PO SCH (20:42)
[2018-08-02] MEDS: ARICEPT TAB 10 MG PO SCH (20:42)
[2018-08-02] MEDS: LEVAQUIN PREMIX IV 750 MG 750 MG/150 ML BAG IV SCH (20:42)
[2018-08-02] MEDS: REQUIP PO SCH (20:43)
[2018-08-02] MEDS: LIPITOR TAB 10 MG PO SCH (20:43)
[2018-08-02] MEDS: COLACE CAP 100 MG PO SCH (20:44)
[2018-08-03] MEDS ORDERED: NS 1/2 1000 ML IV 1,000 ML IV ONE (02:37)
[2018-08-03] MEDS: NS 1/2 1000 ML IV 1,000 ML IV SCH (02:41)
[2018-08-03] MEDS: NORCO 7.5/325 MG TAB PO PRN (02:45)
[2018-08-03] MEDS: TESSALON PERLES PO SCH ×2 (03:12→05:50)
[2018-08-03] MEDS: NEURONTIN CAP 300 MG PO SCH ×2 (03:12→05:50)
[2018-08-03] MEDS: SINEMET (PLAIN) 25/250 MG PO SCH ×2 (03:13→05:50)
[2018-08-03] MEDS: COREG TAB 6.25 MG PO SCH (05:50)
[2018-08-03] MEDS: SYNTHROID 100 mcg TAB PO SCH (05:50)
[2018-08-03 06:25] LABS: BASOPHILS % (AUTO) 0.2 % (0.2-1.0); EOSINOPHILS # (AUTO) 0.2 x10^3/uL (0.0-0.2); EOSINOPHILS % (AUTO) 1.7 % (0.9-2.9); HEMATOCRIT 36.2 % (36.0-47.0); HEMOGLOBIN 12.4 g/dL (12.0-16.0); LYMPHOCYTES # (AUTO) 2.6 X10^3/uL (1.3-2.9); LYMPHOCYTES % (AUTO) 25.3 % (21.0-51.0); MEAN CORPUSCULAR HEMOGLOBIN 33.8 pg (27.0-34.0); MEAN CORPUSCULAR HGB CONC 34.2 g/dL (33.0-35.0); MEAN CORPUSCULAR VOLUME 98.7 fL (80.0-100.0); MEAN PLATELET VOLUME 8.3 fL (7.4-11.0); MONOCYTES # (AUTO) 0.9 x10^3/uL (0.3-0.8); MONOCYTES % (AUTO) 9.1 % (0.0-13.0); NEUTROPHILS # (AUTO) 6.5 x10^3/uL (2.2-4.8); NEUTROPHILS % (AUTO) 63.7 % (42.0-75.0); PLATELET COUNT 188 X10^3/uL (150.0-450.0); RED BLOOD COUNT 3.67 X10^6/uL (3.5-5.4); RED CELL DISTRIBUTION WIDTH 13.6 % (11.6-16.5); WHITE BLOOD COUNT 10.3 X10^3/uL (3.6-10.0)
[2018-08-03 06:41] LABS: ALBUMIN 2.5 g/dL (3.4-5.0); CARBON DIOXIDE 28.9 mmol/L (21-32); COR CA(FOR HYPOALB) 9.2 mg/dL (8.5-10.1); CREATININE 1.45 mg/dL (0.55-1.02); TOTAL PROTEIN 5.3 g/dL (6.4-8.2)
--- NOTE | 2018-08-03 06:54 | RAD ---
HISTORY: Shortness of breath Study: Chest AP portable Comparison: 08/02/2018 Findings: There is a pacemaker present on the left partially obscuring the left mid lung. There is a right-side d port present. The heart is mildly enlarged. No congestive heart failure is noted. The aorta is calc ified and ectatic. The lung cordero are clear. No pleural effusions are identified. The bony thorax is unremarkable. IMPRESSION: Mild cardiomegaly without congestive heart failure Lungs remain clear Reported By:
[2018-08-03 07:08] LABS: BAND NEUTROPHILS % 2 % (0-10); PLATELET MORPHOLOGY COMMENT NORMAL (NORMAL)
[2018-08-03] MEDS: DUONEB 0.5 MG/3 MG NEB SCH (08:44)
[2018-08-03] MEDS: MICRO K EXTEN CAP 10 MEQ PO SCH (09:29)
[2018-08-03] MEDS: DIFLUCAN PO SCH (09:29)
[2018-08-03] MEDS: PROTONIX TAB 40 MG PO SCH (09:30)
[2018-08-03] MEDS: DETROL LA 4 MG CAP EXT REL PO SCH (09:30)
[2018-08-03] MEDS: AMARYL TAB 4 MG PO SCH (09:30)
[2018-08-03] MEDS: ELIQUIS PO SCH (09:31)
[2018-08-03] MEDS: ROBITUSSIN DM PO SCH (09:31)
[2018-08-03] MEDS: PEPCID TAB 20 MG PO SCH (09:32)
[2018-08-03] MEDS: FORTAZ or TAZICEF VIAL INJ IVP SCH (09:32)
[2018-08-03] MEDS: KLONOPIN TAB 0.5 MG PO SCH (09:32)
[2018-08-03] MEDS: MILK OF MAGNESIA PO SCH (09:32)
[2018-08-03] MEDS: ZESTRIL TAB 10 MG PO SCH (09:32)
[2018-08-03] MEDS: NORVASC TAB 5 MG PO SCH (09:32)
[2018-08-03] MEDS: HEMOCYTE-PLUS PO SCH (09:32)
[2018-08-03] MEDS: CELEXA PO SCH (09:32)
[2018-08-03 13:29] VITALS: BP 135/79
--- NOTE | 2018-09-05 23:14 | DR.CARTERD ---
- Discharge Summary for: Discharge Summary for Date of:: 08/03/18 - Admission Date Date of Admission: 07/27/18 - Admission Diagnoses Admission Diagnosis: (1) Bronchopneumonia (2) Generalized weakness - Discharge Date Discharge Date: 08/03/18 - Discharge Diagnoses Discharge Diagnosis: (1) Bronchopneumonia (2) Generalized weakness (3) Diabetes mellitus, type II (4) CAD (coronary artery disease) (5) Depression (6) GERD (gastroesophageal reflux disease) (7) HTN (hypertension) (8) Hyperlipidemia (9) Hypothyroid (10) Parkinson disease (11) Restless leg syndrome - Hospital Course Hospital Course: DAY ONE, MS. TSAI IS A 82 YEAR OLD PATIENT OF OURS WHO PRESENTED TO THE HOSPITAL A DIRECT ADMISSION. SHE WAS SEEN IN THE OFFICE FOR COMPLAINTS OF COUGH, SHORTNESS OF BREATH, WHEEZING, AND GENERALIZED WEAKNESS. SYMPTOMS REPORTEDLY STARTED ONE WEEK AGO. SHE WAS TREATED WITH OMNICEF AND WAS ALSO GIVEN ROCEPHIN 1GM IM X 1 DOSE YESTERDAY. SYMPTOMS HAVE PROGRESSIVELY GOTTEN WORSE. WE ADMITTED PATIENT FOR FURTHER EVALUATION AND TREATMENT OF BRONCHOPNEUMONIA. ON ADMISSION, VITALS WERE 98.4-77-12-93%-157/81. LABS WERE OBTAINED. ABNORMAL LAB VALUES INCLUDE THE FOLLOWING: CARBON DIOXIDE 32.7, CREATININE 2.03, GLUCOSE 107, ALT 111. A CHEST XRAY WAS OBTAINED AND REVEALED: The trachea is midline. The cardiac silhouette is stably enlarged with continued low lung volumes with prominent interstitium and perihilar lung markings. No overt edema, large effusion, large consolidation or pneumothorax. Soft tissues are unremarkable. Osseous structures are unremarkable. SHE WAS STARTED ON THE PNEUMONIA PROTOCOL WITH FORTAZ AND LEVAQUIN. SHE WAS ALSO STARTED ON DUONEBS AND SUPPLEMENTAL OXYGEN. WE PLAN TO FOLLOW UP WITH AM LABS AND CHEST XRAY AND CONTINUE TO MONITOR PATIENT. WE CONTINUED TO MONITOR. IV ANTIBIOTICS, NEB TREATMENTS, AND SUPPLEMENTAL OXYGEN WAS CONTINUED. DAY FIVE, SHE WAS ALERT AND ORIENTED, LYING IN BED ON MORNING ROUNDS. SHE CONTINUED WITH COMPLAINTS OF COUGH, SHORTNESS OF BREATH, AND GENERALIZED WEAKNESS. SHE WAS AFEBRILE. HER VITALS WERE 97.9-72-26-96%-184/93. ABNORMAL LAB VALUES INCLUDED THE FOLLOWING: WBC 11.0, BUN 32, CREATININE 1.67, GLUCOSE 277, TOTAL PROTEIN 6.0, ALBUMIN 3.0. SHE CONTINUED ON IV FORTAZ AND LEVAQUIN WELL RESPIRATORY TREATMENTS, SUPPLEMENTAL OX YGEN, AND TUSSIONEX. WE ADDED TESSALON PERLES TID. DAY SIX, SHE CONTINUED WITH COMPLAINTS OF COUGH, SHORTNESS OF BREATH, AND GENERALIZED WEAKNESS. ON EXAMINATION, HEART WAS REGULAR IN RATE AND RHYTHM. BILATERAL LUNGS WERE NOTED WITH SCATTERED WHEEZING THROUGHOUT. ABDOMEN WAS ROUND, SOFT, AND NON-TENDER WITH NORMAL BOWEL SOUNDS NOTED IN ALL QUADRANTS. HER VITALS WERE 97.4-62-22-95%-157/86. LABS WERE OBTAINED. ABNORMAL LAB VALUES INCLUDED THE FOLLOWING: WBC 11.5, BUN 36, CREATININE 1.56, GLUCOSE 249, CALCIUM 8.2, TOTAL PROTEIN 5.6, ALBUMIN 2.8. SHE CONTINUED ON IV FORTAZ AND LEVAQUIN WELL RESPIRATORY TREATMENTS, SUPPLEMENTAL OXYGEN, AND TUSSIONEX. SHE WAS STARTED ON SLIDING SCALE INSULIN DUE TO ELEVATED BLOOD GLUCOSE. WE RESUMED HER GLIPIZIDE. DAY SEVEN, SHE CONTINUED WITH COMPLAINTS OF COUGH, SHORTNESS OF BREATH, AND GENERALIZED WEAKNESS, BUT REPORTED SLIGHT IMPROVEMENT. ON EXAMINATION, HEART WAS REGULAR IN RATE AND RHYTHM. BILATERAL LUNGS WERE NOTED WITH SCATTERED WHEEZING THROUGHOUT. ABDOMEN WAS ROUND, SOFT, AND NON-TENDER WITH NORMAL BOWEL SOUNDS NOTED IN ALL QUADRANTS. HER VITALS WERE 97.3-67-23-96%-96/51. LABS WERE OBTAINED. ABNORMAL LAB VALUES INCLUDED THE FOLLOWING: BUN 27, CREATININE 1.52, GLUCOSE 174, CALCIUM 8.0, TOTAL PROTEIN 5.6, ALBUMIN 2.8. A CHEST XRAY WAS OBTAINED AND REVEALED: The patient is rotated severely to the right. There is a right-sided port present. There is a left-sided pacemaker present. The heart is enlarged. No congestive heart failure is noted. The aorta is ecstatic. The lung cordero are clear. No pleural effusions are identified. The bony thorax is unremarkable. SHE CONTINUED ON IV FORTAZ AND LEVAQUIN WELL RESPIRATORY TREATMENTS, SUPPLEMENTAL OXYGEN, AND TUSSIONEX. WE CONTINUED TO MONITOR PATIENT. DAY EIGHT, PATIENT WAS DOING BETTER. NO DISTRESS WAS NOTED. PATIENT REPORTED SHE WAS FEELING BETTER. COUGH WAS IMPROVED. RESPIRATORY EFFORT WAS EASY. VITAL SIGNS STABLE. LABS WNL. WE PLANNED FOR DISCHARGE. INSTRUCTIONS FOR MEDICATIONS AND FOLLOW UP WERE DISCUSSED WITH PATIENT AND FAMILY, BOTH VOICED UNDERSTANDING. PATIENT DISCHARGED HOME IN STABLE CONDITION WITH FAMILY. - Discharge Medications Discharge Medications: Home Medication List cefdinir 300 mg PO Q12H 07/27/18 [History] cyanocobalamin (vitamin B-12) 500 mcg IM WEEKLY 07/27/18 [History] benzonatate 200 mg PO TID #30 cap 08/03/18 [Rx] fluconazole 100 mg PO DAILY #7 tab 08/03/18 [Rx] hydrocodone-chlorpheniramine 5 ml PO Q12H PRN #240 ml 08/03/18 [Rx] ipratropium-albuterol 3 ml INHALATION TID #50 units 08/03/18 [Rx] levofloxacin [Levaquin] 500 mg PO QDAY #7 tab 08/03/18 [Rx] Prescriptions: benzoallieate Ramiro Petit fluconazole Ramiro Petit hydrocodone-chlorpheniramine Ramiro Petit ipratropium-albuterol Ramiro Petit levofloxacin [Levaquin] Ramiro Petit amlodipine 5 mg PO DAILY 12/15/17 atorvastatin 10 mg PO HS 12/15/17 carbidopa-levodopa 1 tab PO TID 12/15/17 carvedilol 6.25 mg PO BID 12/15/17 cholecalciferol (vitamin D3) [Vitamin D3] 2,000 unit PO 1200 12/15/17 citalopram 20 mg PO DAILY 12/15/17 donepezil [Aricept] 10 mg PO HS 12/15/17 famotidine 20 mg PO BID 12/15/17 furosemide 20 mg PO BID 12/15/17 gabapentin 300 mg PO TID 12/15/17 glimepiride 2 mg PO BID 12/15/17 levothyroxine [Synthroid] 1 tab PO DAILYAC 12/15/17 lisinopril [Prinivil] 10 mg PO DAILY 12/15/17 pantoprazole 40 mg PO BID 12/15/17 potassium chloride 4 tab PO DAILY 12/15/17 ropinirole [Requip] 2 mg PO HS 12/15/17 apixaban [Eliquis] 2.5 mg PO BID 01/24/18 clonidine 1 each TD WEEKLY 01/24/18 hydrocodone-acetaminophen 1 tab PO Q6H PRN 01/24/18 iron-folic acid-mv, min cmb#15 [Centratex] 2 cap PO DAILY 05/25/18 ondansetron [Zofran ODT] 8 mg PO BID PRN 05/25/18 sennosides-docusate sodium [Senna-S] 2 tab PO HS 05/25/18 tolterodine 4 mg PO DAILY 05/25/18 tramadol 300 mg PO DAILY 05/25/18 fexofenadine-pseudoephedrine [Kristen-D 12 Hour] 1 tab PO Q12H PRN 06/28/18 lorazepam 0.5 mg PO BID-TID PRN 06/28/18 - Discharge Disposition Discharge Disposition: PATIENT IS TO FOLLOW UP IN OUR OFFICE NEEDED.
== END 2018-08-03 13:15 | disposition home or self-care (01) | DRG 194 ==
LOC: ICU 17:07
PROVIDERS: ADMIT Internal Medicine; ATTEND Internal Medicine
DX: G20 Parkinson's disease; E03.8 Other specified hypothyroidism; G25.81 Restless legs syndrome; F33.1 Major depressive disorder, recurrent, moderate; I10 Essential (primary) hypertension; J18.0 Bronchopneumonia, unspecified organism; R13.11 Dysphagia, oral phase; R53.1 Weakness; R26.89 Other abnormalities of gait and mobility; K21.9 Gastro-esophageal reflux disease without esophagitis; R06.02 Shortness of breath; Z95.0 Presence of cardiac pacemaker; I25.10 Atherosclerotic heart disease of native coronary artery without angina pectoris; M19.90 Unspecified osteoarthritis, unspecified site
CPT/HCPCS: 36415; 71010; 71045; 80053; 82550; 82553; 82947; 83735; 84484; 85025; 85652; 86140; 87040; 87070; 87205; 92526; 92610; 93005; 94640; 97110; 97163; 97166; 97530; 97535; 99231; A4222; J0713; J1450; J1642; J1815; J1956; J2920; J7050; J7620; S0181

== ENCOUNTER 2018-09-07 16:50 | Inpatient (IN) ==
[2018-09-07] MEDS ORDERED: MORPHINE SULFATE INJ 2 MG INJ IVP ONE (17:18)
--- NOTE | 2018-09-07 17:23 | DR.DIZZY ---
HPI Time seen Time Seen by Provider: 09/07/18 17:13 PCP Primary Care Physician: EDUAR Complaint Chief Complaint:: PT. C/O GENERALIZED PAIN AND WEAKNESS. SHE REPORTS BEING SICK FOR 3-4 DAYS. SPOUSE STATES THE PAST FEW TIMES SHE HAS HAD PNEUMONIA SHE HAS HAD THESE SAME SYMTPOMS. HOSPICE NURSE CALLS PRIOR TO PT'S ARRIVAL. Source History Provided: Patient, Family Member and Other Mode of Arrival Mode of Arrival: Wheelchair Timing Onset of Chief Complaint: 09/03/18 Context Stroke Symptoms: None PMH PMH Past Medical History: Yes Past Medical History: Anemia, Arthritis, CHF, Coronary Artery Disease, Diabetes, Dyslipidemia, GERD, Hypertension, Hypothyroidism and Kidney Stones Past Surgical History: Yes Surgical History: Abdominal Surgery, Appendectomy, Bowel Resection, Cholecystectomy, Hysterectomy, Ortho Surgery and Tonsillectomy Family History History of Family Medical Conditions: Yes Family Medical History: Diabetes Mellitus, [place] and Hypertension Social History Does patient currently use any type of tobacco product: No Have you used tobacco products in the last 12 months: No Type of Tobacco Use: None Does any household member use tobacco: No Alcohol Use: None Do you use any recreational Drugs:: No Lives With: Spouse Lives Where: Home infectious screening In the last 2 months have you had wt loss of >10#?: NO Have you had fever, night sweats or hemotysis?: No Have you traveled outside the country in the last 6 months?: No Isolation: Standard PE Vital Signs Vitals: Temperature 98 F Pulse Rate [Right Brachial] 60 Pulse Rate 62 Respiratory Rate 18 Blood Pressure [Left Calf] 149/72 Blood Pressure [Right Arm] 101/51 Blood Pressure [Left Arm] 155/78 Blood Pressure 153/72 O2 Sat by Pulse Oximetry 95 General Limitations: Physical Limitation General Appearance: Alert and In No Apparent Distress Head Head Exam: Normal Inspection, Atraumatic and Normocephalic Eyes Eye exam: Normal Appearance, PERRL and EOMI Pupils: Regular, Round: Bilateral Sclera/Conjunctival: Normal Inspection: Bilateral Anterior Chamber: Normal Inspection: Bilateral Posterior Chamber: Deferred: Bilateral ENT ENT Exam: Normal Exam and Normal Oropharynx Neck Neck Exam: Normal Inspection and Full ROM Respiratory Respiratory Exam: Normal Lung Sounds Bilat and Accessory Muscle Use Respiratory Exam: Bilateral: Clear to Auscultation Cardiovascular Cardiovascular Exam: Regular Rate and Normal Rhythm Abdominal Exam Abdominal Exam: Normal Inspection, Normal Bowel Sounds and Soft Abdominal Tenderness: Epigastrium Rectal Rectal Exam: Deferred Extremeties Extremities Exam: Tenderness (upper extremities) Back Back Exam: Normal Inspection Neurologic Neurological Exam: Alert, Oriented X3 and CN II-XII Intact Speech: Fluid Speech Cranial Nerve Exam: EOM Function (II, III, IV, ): Normal Psychiatric Psychiatric Exam: Normal Affect and Normal Mood Skin Skin Exam: Warm, Dry, Intact and Normal Color COURSE Consultation Call Returned: 19:55 Consultation Comments: Dr. Petit agreed to admit patient for further evaluation and treatment. ROR Labs Reviewed Laboratory Results Reviewed?: Yes Result Diagrams: 09/07/18 17:38 09/07/18 17:38 Laboratory: WBC 9.9 X10^3/uL (3.6-10.0) 09/07/18 17:38 RBC 3.63 X10^6/uL (3.5-5.4) 09/07/18 17:38 Hgb 12.1 g/dL (12.0-16.0) 09/07/18 17:38 Hct 36.2 % (36.0-47.0) 09/07/18 17:38 MCV 99.7 fL (80.0-100.0) 09/07/18 17:38 MCH 33.3 pg (27.0-34.0) 09/07/18 17:38 MCHC 33.4 g/dL (33.0-35.0) 09/07/18 17:38 RDW 14.3 % (11.6-16.5) 09/07/18 17:38 Plt Count 205 X10^3/uL (150.0-450.0) 09/07/18 17:38 MPV 8.7 fL (7.4-11.0) 09/07/18 17:38 Neut % (Auto) 65.1 % (42.0-75.0) 09/07/18 17:38 Lymph % (Auto) 23.3 % (21.0-51.0) 09/07/18 17:38 [place] % (Auto) 10.0 % (0.0-13.0) 09/07/18 17:38 Eos % (Auto) 0.8 % (0.9-2.9) L 09/07/18 17:38 Baso % (Auto) 0.8 % (0.2-1.0) 09/07/18 17:38 Neut # (Auto) 6.4 x10^3/uL (2.2-4.8) H 09/07/18 17:38 Lymph # (Auto) 2.3 X10^3/uL (1.3-2.9) 09/07/18 17:38 [place] # (Auto) 1.0 x10^3/uL (0.3-0.8) H 09/07/18 17:38 Eos # (Auto) 0.1 x10^3/uL (0.0-0.2) 09/07/18 17:38 Baso # (Auto) 0.1 X10^3/uL (0.0-0.1) 09/07/18 17:38 Absolute Nucleated RBC 0.1 /100WBC 09/07/18 17:38 D-Dimer 1020 ng/mL (0-400) H* 09/07/18 17:38 Sodium 143 mmol/L (136-145) 09/07/18 17:38 Corrected Sodium 143 mmol/L (136-145) 09/07/18 17:38 Potassium 4.4 mmol/L (3.5-5.1) 09/07/18 17:38 Chloride 107 mmol/L (98-107) 09/07/18 17:38 Carbon Dioxide 29.1 mmol/L (21-32) 09/07/18 17:38 BUN 32 mg/dL (7-18) H 09/07/18 17:38 Creatinine 2.63 mg/dL (0.55-1.02) H 09/07/18 17:38 Est GFR (MDRD) Af Amer 22 (>60) L 09/07/18 17:38 Est GFR (MDRD) Non-Af 18 (>60) L 09/07/18 17:38 Glucose 119 mg/dL (65-99) H 09/07/18 17:38 Calcium 8.2 mg/dL (8.5-10.1) L 09/07/18 17:38 Corrected Calcium 8.8 mg/dL (8.5-10.1) 09/07/18 17:38 Total Bilirubin 0.40 mg/dL (0.2-1.0) 11/01/18 17:38 AST 16 Units/L (15-37) 09/07/18 17:38 ALT 7 Units/L (12-78) L 09/07/18 17:38 Alkaline Phosphatase 66 Units/L (46-116) 09/07/18 17:38 C-Reactive Protein 14.20 mg/L (0-3.0) H 09/07/18 17:38 Total Protein 6.5 g/dL (6.4-8.2) 09/07/18 17:38 Albumin 3.2 g/dL (3.4-5.0) L 09/07/18 17:38 Globulin 3.3 g/dL (2.5-4.5) 09/07/18 17:38 Albumin/Globulin Ratio 1.0 Ratio (1.1-2.1) L 09/07/18 17:38 Specimen Type Clean catch urine 09/07/18 22:39 Urine Color Yellow (YELLOW) 09/07/18 22:39 Urine Appearance Slightly hazy (CLEAR) 09/07/18 22:39 Urine pH 5.0 (5.0 - 8.0) 09/07/18 22:39 Ur Specific [place] 1.015 (1.000-1.030) 09/07/18 22:39 Urine Protein Negative (NEGATIVE) 09/07/18 22:39 Urine Glucose (UA) Negative (NEGATIVE) 09/07/18 22:39 Urine Ketones Negative (NEGATIVE) 09/07/18 22:39 Urine Occult Blood Negative (NEGATIVE) 09/07/18 22:39 Urine Nitrite Positive (NEGATIVE) 09/07/18 22:39 Urine Bilirubin 1+ (NEGATIVE) 09/07/18 22:39 Urine Urobilinogen Normal (NORMAL) 09/07/18 22:39 Ur Leukocyte Esterase 1+ (NEGATIVE) 09/07/18 22:39 Urine RBC 0-2 /HPF (NONE SEEN) 09/07/18 22:39 Urine WBC 3-5 /HPF (NONE SEEN) 09/07/18 22:39 Ur Squamous Epith Cells Many /HPF (NEGATIVE) 09/07/18 22:39 Urine Bacteria 3+ /HPF (NEGATIVE) 09/07/18 22:39 Hyaline Casts Few /LPF (NEGATIVE) 09/07/18 22:39 Ur Culture Indicated? Yes/culture set up 09/07/18 22:39 Other Results Comments: Chest: There is no pneumothorax. There is cardiomegaly. Port-A-Cath tip is over the SVC. Pacemaker leads project as expected. There is no pneumothorax, effusion or consolidation. Impression: Cardiomegaly and chronic lung changes without other new acute chest process. Lumbar spine CT: ..There is grade 1 anterolisthesis of L4 and L5 due to facet degenerative changes. No pars interarticularis defects identified. No evidence for acute fracture or subl uxation identified. Vertebral body heights are preserved. Multilevel spondylosis and disc heights appear intact...Mild bilateral renal atrophy. A large volume of retained stool is present. incidental note of colonic diverticulosis and hysterectomy. There is a left hip prosthesis. 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 Diagnosis Discharge Problem: Dehydration
[2018-09-07 17:48] LABS: BASOPHILS # (AUTO) 0.1 X10^3/uL (0.0-0.1); BASOPHILS % (AUTO) 0.8 % (0.2-1.0); EOSINOPHILS # (AUTO) 0.1 x10^3/uL (0.0-0.2); EOSINOPHILS % (AUTO) 0.8 % (0.9-2.9); HEMATOCRIT 36.2 % (36.0-47.0); HEMOGLOBIN 12.1 g/dL (12.0-16.0); LYMPHOCYTES # (AUTO) 2.3 X10^3/uL (1.3-2.9); LYMPHOCYTES % (AUTO) 23.3 % (21.0-51.0); MEAN CORPUSCULAR HEMOGLOBIN 33.3 pg (27.0-34.0); MEAN CORPUSCULAR HGB CONC 33.4 g/dL (33.0-35.0); MEAN CORPUSCULAR VOLUME 99.7 fL (80.0-100.0); MEAN PLATELET VOLUME 8.7 fL (7.4-11.0); NEUTROPHILS # (AUTO) 6.4 x10^3/uL (2.2-4.8); NEUTROPHILS % (AUTO) 65.1 % (42.0-75.0); PLATELET COUNT 205 X10^3/uL (150.0-450.0); RED BLOOD COUNT 3.63 X10^6/uL (3.5-5.4); RED CELL DISTRIBUTION WIDTH 14.3 % (11.6-16.5); WHITE BLOOD COUNT 9.9 X10^3/uL (3.6-10.0)
[2018-09-07 17:58] LABS: ALBUMIN 3.2 g/dL (3.4-5.0); CALCIUM 8.2 mg/dL (8.5-10.1); CARBON DIOXIDE 29.1 mmol/L (21-32); COR CA(FOR HYPOALB) 8.8 mg/dL (8.5-10.1); CREATININE 2.63 mg/dL (0.55-1.02); TOTAL PROTEIN 6.5 g/dL (6.4-8.2)
[2018-09-07] MEDS ORDERED: MORPHINE SULFATE INJ 2 MG INJ ONE (18:00)
--- NOTE | 2018-09-07 18:32 | CT ---
HISTORY: Pain, weakness Study: CT lumbar spine without contrast Comparison: 11/09/2017 Technique: Multiple axial images of the lumbar spine without the administration of IV contrast. Sagittal and coronal reformats were performed and reviewed. Dose reduction techniques including Automated Exposure Control (AEC) and adjustment of mA and kV were utilized. Findings: There is a transitional L5 vertebral body. There is grade 1 anterolisthesis of L4 on L5 due to facet degenerative changes. No pars interarticularis defects identified. No evidence for acute fracture or subluxation identified. Vertebral body heights are preserved. Multilevel spondylosis and disc height loss is present with broad-based disc bulges L4-L5 and L2-L3.Posterior elements appear intact. Prior cholecystectomy. There is mild bilateral renal atrophy. A large volume of retained stool is present. Incidental note of colonic diverticulosis and hysterectomy. There is a left hip prosthesis. IMPRESSION: 1. Chronic degenerative changes of the lumbar spine as described. Reported By:
[2018-09-07] MEDS: NS 1000 ML 1,000 ML IV SCH (18:43)
--- NOTE | 2018-09-07 18:50 | RAD ---
Chest AP portable Indication: Generalized pain and weakness Comparison: 08/03/2018 Findings: There is no pneumothorax. There is cardiomegaly. Port-A-Cath tip is over the SVC. Pacemaker leads project as expected. There is no pneumothorax, effusion or consolidation. Impression: Cardiomegaly and chronic lung changes without other new acute chest process. Reported By:
[2018-09-07] MEDS ORDERED: NS 1000 ML 1,000 ML IV SCH (21:00)
[2018-09-07] MEDS ORDERED: LEVAQUIN TAB 500 MG PO SCH (21:11)
[2018-09-07] MEDS ORDERED: ATIVAN TAB 0.5 MG PO PRN (21:11)
[2018-09-07] MEDS ORDERED: ZOFRAN TAB 4 MG PO PRN (21:11)
[2018-09-07] MEDS ORDERED: OMNICEF CAP 300 MG PO SCH (21:11)
[2018-09-07] MEDS ORDERED: PEPCID TAB 20 MG PO SCH (21:11)
[2018-09-07] MEDS ORDERED: NEURONTIN CAP 300 MG PO SCH (22:00)
[2018-09-07] MEDS: DUONEB 0.5 MG/3 MG IN SCH (22:13)
[2018-09-07] MEDS: ARICEPT TAB 10 MG PO SCH (22:21)
[2018-09-07] MEDS: LASIX PO SCH (22:22)
[2018-09-07] MEDS: PROTONIX TAB 40 MG PO SCH (22:22)
[2018-09-07] MEDS: NEURONTIN CAP 300 MG PO SCH (22:22)
[2018-09-07] MEDS: PEPCID TAB 20 MG PO SCH (22:22)
[2018-09-07] MEDS: ELIQUIS PO SCH (22:22)
[2018-09-07] MEDS: AMARYL TAB 4 MG PO SCH (22:22)
[2018-09-07] MEDS: NORCO 7.5/325 MG TAB PO PRN (22:23)
[2018-09-07] MEDS: TESSALON PERLES PO SCH (22:23)
[2018-09-07 22:53] LABS: BILIRUBIN,URINE 1+ (NEGATIVE); BLOOD/HEMOGLOBIN,URINE NEGATIVE (NEGATIVE); GLUCOSE, URINE NEGATIVE (NEGATIVE); KETONES,URINE NEGATIVE (NEGATIVE); LEUKOCYTE ESTERASE ,URINE 1+ (NEGATIVE); NITRITES,URINE POSITIVE (NEGATIVE); PROTEIN,URINE NEGATIVE (NEGATIVE); UROBILINOGEN,URINE NORMAL (NORMAL)
[2018-09-07 23:02] LABS: APPEARANCE,URINE SLIGHTLY HAZY (CLEAR); COLOR,URINE YELLOW (YELLOW)
[2018-09-07 23:03] LABS: BACTERIA,URINE 3+ /HPF (NEGATIVE); HYALINE CASTS, URINE FEW /LPF (NEGATIVE); RBC,URINE 0-2 /HPF (NONE SEEN); SQUAMOUS EPITHELIAL CELL,UR MANY /HPF (NEGATIVE)
[2018-09-07 23:32] VITALS: BMI 30.2
[2018-09-08] MEDS: NORCO 7.5/325 MG TAB PO PRN (03:48)
[2018-09-08] MEDS: DUONEB 0.5 MG/3 MG IN SCH ×4 (05:15→20:12)
[2018-09-08] MEDS: TESSALON PERLES PO SCH ×3 (05:36→23:00)
[2018-09-08 06:24] LABS: BASOPHILS % (AUTO) 0.5 % (0.2-1.0); EOSINOPHILS # (AUTO) 0.1 x10^3/uL (0.0-0.2); HEMATOCRIT 32.1 % (36.0-47.0); HEMOGLOBIN 10.8 g/dL (12.0-16.0); LYMPHOCYTES # (AUTO) 2.8 X10^3/uL (1.3-2.9); LYMPHOCYTES % (AUTO) 29.3 % (21.0-51.0); MEAN CORPUSCULAR HEMOGLOBIN 33.6 pg (27.0-34.0); MEAN CORPUSCULAR HGB CONC 33.7 g/dL (33.0-35.0); MEAN CORPUSCULAR VOLUME 99.6 fL (80.0-100.0); MEAN PLATELET VOLUME 8.8 fL (7.4-11.0); MONOCYTES # (AUTO) 1.1 x10^3/uL (0.3-0.8); MONOCYTES % (AUTO) 11.7 % (0.0-13.0); NEUTROPHILS # (AUTO) 5.5 x10^3/uL (2.2-4.8); NEUTROPHILS % (AUTO) 57.5 % (42.0-75.0); PLATELET COUNT 165 X10^3/uL (150.0-450.0); RED BLOOD COUNT 3.22 X10^6/uL (3.5-5.4); RED CELL DISTRIBUTION WIDTH 14.1 % (11.6-16.5); WHITE BLOOD COUNT 9.5 X10^3/uL (3.6-10.0)
[2018-09-08] MEDS: NS 1000 ML 1,000 ML IV SCH ×2 (06:31→21:14)
[2018-09-08 06:35] LABS: ALANINE AMINOTRANSFERASE 16 Units/L (12-78); ALBUMIN 2.6 g/dL (3.4-5.0); ALKALINE PHOSPHATASE 53 Units/L (46-116); ASPARTATE AMINO TRANSFERASE 17 Units/L (15-37); BLOOD UREA NITROGEN 30 mg/dL (7-18); CALCIUM 7.1 mg/dL (8.5-10.1); CARBON DIOXIDE 27.5 mmol/L (21-32); CHLORIDE 111 mmol/L (98-107); COR CA(FOR HYPOALB) 8.2 mg/dL (8.5-10.1); CREATININE 2.17 mg/dL (0.55-1.02); SODIUM 144 mmol/L (136-145); TOTAL PROTEIN 5.3 g/dL (6.4-8.2); eGFR NON BLACK RACES 23 (>60)
[2018-09-08] MEDS ORDERED: TRAMADOL 300 MG PO SCH (09:00)
[2018-09-08] MEDS ORDERED: DIFLUCAN PO SCH (09:00)
[2018-09-08] MEDS ORDERED: IRON FOLIC ACID MV MIN CMB PO SCH ×2 (09:00→11:45)
[2018-09-08] MEDS: CELEXA PO SCH (10:09)
[2018-09-08] MEDS: ROCEPHIN VIAL 1 GRAM IVP SCH (10:09)
[2018-09-08] MEDS: DETROL LA 4 MG CAP EXT REL PO SCH (10:09)
[2018-09-08] MEDS: AMARYL TAB 4 MG PO SCH ×2 (10:10→20:41)
[2018-09-08] MEDS: ELIQUIS PO SCH ×2 (10:10→20:39)
[2018-09-08] MEDS: PEPCID TAB 20 MG PO SCH ×2 (10:11→20:41)
[2018-09-08] MEDS: LASIX PO SCH ×2 (10:11→20:41)
[2018-09-08] MEDS: PROTONIX TAB 40 MG PO SCH ×2 (10:11→20:40)
[2018-09-08] MEDS: NEURONTIN CAP 300 MG PO SCH ×2 (10:11→20:39)
[2018-09-08] MEDS: NORVASC TAB 5 MG PO SCH (10:11)
[2018-09-08] MEDS: ZESTRIL TAB 10 MG PO SCH (10:11)
[2018-09-08] MEDS: ULTRAM PO SCH (10:22)
[2018-09-08] MEDS: MIRAPEX TAB 1 MG PO SCH ×3 (10:27→21:14)
[2018-09-08] MEDS: ZITHROMAX INJ 500 MG VIAL 500 MG in NS 250 ML IV 250 ML IV SCH (10:27)
[2018-09-08] MEDS: MORPHINE SULFATE INJ 2 MG INJ IVP PRN ×2 (12:09→20:42)
[2018-09-08] MEDS: SYNTHROID 100 mcg TAB PO SCH (13:02)
[2018-09-08] MEDS: FLONASE NASAL SPRAY ENOSTRIL SCH (13:02)
[2018-09-08] MEDS: ZyPREXA TAB 5 MG PO SCH ×2 (13:03→20:41)
[2018-09-08] MEDS: SINEMET (PLAIN) 25/250 MG PO SCH ×2 (13:03→21:15)
[2018-09-08] MEDS: MICRO K EXTEN CAP 10 MEQ PO SCH (13:04)
[2018-09-08] MEDS ORDERED: CARBIDOPA LEVODOPA PO SCH (14:00)
[2018-09-08] MEDS: ROBITUSSIN DM PO SCH (17:20)
[2018-09-08] MEDS: LIPITOR TAB 10 MG PO SCH (20:39)
[2018-09-08] MEDS: REQUIP PO SCH (20:40)
[2018-09-08] MEDS: ARICEPT TAB 10 MG PO SCH (20:40)
[2018-09-08] MEDS: SENOKOT PO SCH (20:41)
[2018-09-08] MEDS ORDERED: PATIENT'S HOME MEDICATION (Sennosides-Docusate Sodium [Senna-S] 2 TAB) PO SCH (21:00)
[2018-09-08] MEDS: SNACK - Diabetic Appropriate PO SCH (21:00)
[2018-09-09] MEDS: SNACK - Diabetic Appropriate PO SCH ×2 (00:11→21:15)
[2018-09-09] MEDS: ROBITUSSIN DM PO SCH ×7 (00:12→21:27)
[2018-09-09] MEDS: DUONEB 0.5 MG/3 MG IN SCH ×3 (05:08→20:40)
[2018-09-09] MEDS: MORPHINE SULFATE INJ 2 MG INJ IVP PRN ×4 (05:56→23:39)
[2018-09-09] MEDS: TESSALON PERLES PO SCH ×3 (05:56→21:19)
[2018-09-09] MEDS: MIRAPEX TAB 1 MG PO SCH ×3 (05:56→21:16)
[2018-09-09] MEDS: SINEMET (PLAIN) 25/250 MG PO SCH ×3 (05:56→21:21)
[2018-09-09 06:16] LABS: BASOPHILS % (AUTO) 0.5 % (0.2-1.0); EOSINOPHILS # (AUTO) 0.1 x10^3/uL (0.0-0.2); EOSINOPHILS % (AUTO) 1.4 % (0.9-2.9); HEMATOCRIT 31.5 % (36.0-47.0); HEMOGLOBIN 10.6 g/dL (12.0-16.0); LYMPHOCYTES # (AUTO) 2.8 X10^3/uL (1.3-2.9); LYMPHOCYTES % (AUTO) 42.5 % (21.0-51.0); MEAN CORPUSCULAR HEMOGLOBIN 33.3 pg (27.0-34.0); MEAN CORPUSCULAR HGB CONC 33.6 g/dL (33.0-35.0); MEAN CORPUSCULAR VOLUME 98.9 fL (80.0-100.0); MONOCYTES # (AUTO) 0.8 x10^3/uL (0.3-0.8); MONOCYTES % (AUTO) 12.5 % (0.0-13.0); NEUTROPHILS # (AUTO) 2.8 x10^3/uL (2.2-4.8); NEUTROPHILS % (AUTO) 43.1 % (42.0-75.0); PLATELET COUNT 163 X10^3/uL (150.0-450.0); RED BLOOD COUNT 3.19 X10^6/uL (3.5-5.4); RED CELL DISTRIBUTION WIDTH 14.2 % (11.6-16.5); WHITE BLOOD COUNT 6.5 X10^3/uL (3.6-10.0)
[2018-09-09 06:35] LABS: ALBUMIN 2.7 g/dL (3.4-5.0); CALCIUM 7.5 mg/dL (8.5-10.1); CARBON DIOXIDE 26.4 mmol/L (21-32); COR CA(FOR HYPOALB) 8.5 mg/dL (8.5-10.1); CREATININE 1.92 mg/dL (0.55-1.02); TOTAL PROTEIN 5.6 g/dL (6.4-8.2)
[2018-09-09] MEDS: NS 1000 ML 1,000 ML IV SCH ×2 (07:42→12:33)
[2018-09-09] MEDS: AFRIN NASAL SPRAY SCH ×2 (09:39→21:16)
[2018-09-09] MEDS: FLONASE NASAL SPRAY ENOSTRIL SCH (09:41)
[2018-09-09] MEDS: ZITHROMAX INJ 500 MG VIAL 500 MG in NS 250 ML IV 250 ML IV SCH (09:42)
[2018-09-09] MEDS: ROCEPHIN VIAL 1 GRAM IVP SCH (09:42)
[2018-09-09] MEDS: DETROL LA 4 MG CAP EXT REL PO SCH (09:43)
[2018-09-09] MEDS: SYNTHROID 100 mcg TAB PO SCH (09:43)
[2018-09-09] MEDS: PROTONIX TAB 40 MG PO SCH ×2 (09:43→21:19)
[2018-09-09] MEDS: FOLTX PO SCH (09:43)
[2018-09-09] MEDS: NEURONTIN CAP 300 MG PO SCH ×2 (09:43→21:20)
[2018-09-09] MEDS: CELEXA PO SCH (09:44)
[2018-09-09] MEDS: ELIQUIS PO SCH ×2 (09:44→21:17)
[2018-09-09] MEDS: PEPCID TAB 20 MG PO SCH ×2 (09:44→21:18)
[2018-09-09] MEDS: LASIX PO SCH ×2 (09:44→21:24)
[2018-09-09] MEDS: ZESTRIL TAB 10 MG PO SCH (09:45)
[2018-09-09] MEDS: ZyPREXA TAB 5 MG PO SCH ×2 (09:45→21:18)
[2018-09-09] MEDS: MICRO K EXTEN CAP 10 MEQ PO SCH (09:45)
[2018-09-09] MEDS: AMARYL TAB 4 MG PO SCH ×2 (09:45→21:19)
[2018-09-09] MEDS: ULTRAM PO SCH (09:46)
[2018-09-09] MEDS: NORVASC TAB 5 MG PO SCH (09:46)
[2018-09-09] MEDS: ZOFRAN INJ 4 MG VIAL IVP PRN ×2 (10:33→19:12)
--- NOTE | 2018-09-09 10:58 | DR.H&P ---
H&P - History & Physical for Day of: H&P Date: 09/07/18 - Chief Complaint Chief Complaint: WEAKNESS, BACK PAIN, SHORTNESS OF BREATH - History of Present Illness History of Present Illness: IS A 82 YEAR OLD PATIENT OF OURS WHO PRESENTED TO THE EMERGENCY ROOM WITH COMPLAINTS OF GENERALIZED PAIN AND WEAKNESS. SHE ALSO REPORTS GENERALIZED MAL[place]ISE, BACK PAIN, AND SHORTNESS OF BREATH FOR THE PAST 3-4 DAYS. ON ARRIVAL, VITALS WERE 98.0-77-18-95%-153/72. LABS WERE OBTAINED. ABNORMAL LAB VALUES INCLUDE THE FOLLOWING: BUN 32, CREATININE 2.63, GLUCOSE 119, CALCIUM 8.2, ALT 7, CRP 14.20, ALBUMIN 3.2, D- DIMER 1020. URINALYSIS REVEALED: WBC 3-5, RBC 0-2, LEUKOCYTES 1+, BACTERIA 3+. A LUMBAR SPINE CT WAS OBTAINED AND REVEALED: CHRONIC DEGENERATIVE CHANGES; A LARGE VOLUME OF RETAINED STOOL; DIVERTICULOSIS. CHEST XRAY REVEALED: CARDIOMEGALY AND CHRONIC LUNG CHANGES WITHOUT OTHER ACUTE CHEST PROCESS. SHE WAS ADMITTED FOR FURTHER EVALUATION AND TREATMENT OF DEHYDRATION, UTI, SHORTNESS OF BREATH, AND CONSTIPATION. SHE WAS STARTED ON NORMAL SALINE, ANTIBIOTICS, RESPIRATORY TREATMENTS, AND HOME MEDICATIONS WERE RESUMED. WE PLANNED TO FOLLOW-UP WITH AM LABS AND CONTINUE TO MONITOR PATIENT. - Past Medical History Past Medical History: Coronary Artery Disease, Hypertension, Dyslipidemia, Diabetes, Hypothyroidism, Anemia, GERD, Arthritis, Kidney Stones, CHF Additional Medical History: Vision Deficit, Parkinson's Disease, Atrial Fibrillation, Bronchitis, Pneumonia, Constipation, Diarrhea, Colon Cancer, Breast Cancer, Urinary Tract Infections, Muscle Weakness, Back Pain, Neuropathy, Previous Blood Transfusion - Past Surgical History Surgical History: Abdominal Surgery, Appendectomy, Bowel Resection, Cholecystectomy, Hysterectomy, Ortho Surgery, Tonsillectomy Additional Surgical History: Pacemaker, Two Colon Resection's for Colon Cancer, Left Partial Mastectomy for Breast Cancer, Right Chest Wall Port a cath, Left PAU - Family History Family Medical History: Diabetes Mellitus, [place], Hypertension - Social History Does patient currently use any type of tobacco product: No Have you used tobacco products in the last 12 months: No Type of Tobacco Use: None Does any household member use tobacco: No Alcohol Use: None Drug Use: None - Medications Home Medications: latex Allergy (Verified 09/07/18 16:52) ADHESIVE TAPE Allergy (Uncoded 09/07/18 16:52) CONTINUE taking the following medications RX: morphine concentrate 0.25 - 2 ml PO Q2H PRN 09/08/18 [History] fluticasone [Flonase Allergy Relief] 2 spray INTRANASAL DAILY 09/08/18 [History] iron-folic acid-mv, min cmb#15 [Centratex] 2 cap PO QDAY 09/08/18 [History] olanzapine [Zyprexa] 2.5 mg PO BID 09/08/18 [History] sulfamethoxazole-trimethoprim [Bactrim DS] 1 tab PO Q12W 09/08/18 [History] - Review of Systems Constitutional: Weakness, Malaise Eyes: No Symptoms Reported ENT: No Symptoms Reported Respiratory: Cough, Shortness of Breath. denies: Sputum, Wheezing Cardiovascular: No Symptoms Reported Gastrointestinal: Nausea Genitourinary: No Symptoms Reported Musculoskeletal: Back Pain Skin: No Symptoms Reported Neurological: Weakness - Physical Exam Vital Signs: Temperature 98.0 F Pulse Rate [Right Brachial] 77 Pulse Rate 71 Respiratory Rate 18 Blood Pressure [Left Calf] 149/72 Blood Pressure [Right Arm] 127/58 Blood Pressure [Left Arm] 155/78 Blood Pressure 153/72 O2 Sat by Pulse Oximetry 97 Oriented: Normal Eyes: Normal Ear: Normal Nose: Normal Throat: Normal Respiratory: Diminished Throughout Cardiovascular: Normal. negative: S3, S4, Murmur : Normal Auscultation: Bowel Sounds: Decreased Palpation: Normal Tenderness: Diffuse, Mild. negative: Rebound, Guarding, Rigidity Skin: Normal Musculoskeletal: Back:Lumbar, Tender Psychiatric: Normal Mood Description: Calm Affect: Normal Speech Pattern: Clear - Assessment/Plan (1) Dehydration Status: Acute Plan: NORMAL SALINE, CONTINUE TO MONITOR (2) Urinary tract infection Qualifiers: Urinary tract infection type: acute cystitis Hematuria presence: without hematuria Qualified Code(s): N30.00 - Acute cystitis without hematuria Status: Acute Plan: IV ANTIBIOTICS, IV FLUIDS, CONTINUE TO MONITOR (3) SOB (shortness of breath) Status: Acute Plan: RESPIRATORY TREATMENTS, SUPPLEMENTAL OXYGEN, MONITOR CHEST XRAY (4) Constipation Qualifiers: Constipation type: unspecified constipation type Qualified Code(s): K59.00 - Constipation, unspecified Status: Acute Plan: MONITOR (5) Lower back pain Qualifiers: Chronicity: acute Back pain laterality: midline Sciatica presence: unspecified whether sciatica present Qualified Code(s): M54.5 - Low back pain Status: Acute Plan: PAIN MANAGEMENT, CONTINUE TO [facility] - Allergies Allergies/Adverse Reactions: Allergies Allergy/AdvReac Type Severity Reaction Status Date / Time latex Allergy Verified 09/07/18 16:52 ADHESIVE TAPE Allergy Uncoded 09/07/18 16:52
[2018-09-09 13:10] LABS: CREATINE KINASE 49 Units/L (26-192); CREATINE KINASE MB < 1.0 ng/mL (0-4.0); TROPONIN I < 0.02 ng/mL (0-1.5)
[2018-09-09] MEDS: SENOKOT PO SCH (21:16)
[2018-09-09] MEDS: LIPITOR TAB 10 MG PO SCH (21:17)
[2018-09-09] MEDS: REQUIP PO SCH (21:19)
[2018-09-09] MEDS: ARICEPT TAB 10 MG PO SCH (21:20)
[2018-09-10] MEDS: ZOFRAN INJ 4 MG VIAL IVP PRN ×2 (03:59→09:37)
[2018-09-10] MEDS: NS 1000 ML 1,000 ML IV SCH ×3 (03:59→21:27)
[2018-09-10] MEDS: DUONEB 0.5 MG/3 MG IN SCH ×3 (05:04→21:08)
[2018-09-10] MEDS: MIRAPEX TAB 1 MG PO SCH ×3 (05:32→21:11)
[2018-09-10] MEDS: TESSALON PERLES PO SCH ×3 (05:33→21:27)
[2018-09-10] MEDS: SINEMET (PLAIN) 25/250 MG PO SCH ×3 (05:33→21:11)
[2018-09-10 05:53] LABS: BASOPHILS % (AUTO) 0.6 % (0.2-1.0); EOSINOPHILS # (AUTO) 0.2 x10^3/uL (0.0-0.2); EOSINOPHILS % (AUTO) 2.3 % (0.9-2.9); HEMATOCRIT 31.7 % (36.0-47.0); HEMOGLOBIN 10.6 g/dL (12.0-16.0); LYMPHOCYTES # (AUTO) 2.8 X10^3/uL (1.3-2.9); MEAN CORPUSCULAR HEMOGLOBIN 33.4 pg (27.0-34.0); MEAN CORPUSCULAR HGB CONC 33.5 g/dL (33.0-35.0); MEAN CORPUSCULAR VOLUME 99.8 fL (80.0-100.0); MEAN PLATELET VOLUME 8.9 fL (7.4-11.0); MONOCYTES # (AUTO) 0.6 x10^3/uL (0.3-0.8); MONOCYTES % (AUTO) 9.2 % (0.0-13.0); NEUTROPHILS % (AUTO) 44.9 % (42.0-75.0); PLATELET COUNT 164 X10^3/uL (150.0-450.0); RED BLOOD COUNT 3.17 X10^6/uL (3.5-5.4); RED CELL DISTRIBUTION WIDTH 14.4 % (11.6-16.5); WHITE BLOOD COUNT 6.6 X10^3/uL (3.6-10.0)
[2018-09-10 06:10] LABS: ALBUMIN 2.6 g/dL (3.4-5.0); CALCIUM 7.8 mg/dL (8.5-10.1); CARBON DIOXIDE 26.1 mmol/L (21-32); COR CA(FOR HYPOALB) 8.9 mg/dL (8.5-10.1); CREATININE 1.55 mg/dL (0.55-1.02); TOTAL PROTEIN 5.5 g/dL (6.4-8.2)
[2018-09-10] MEDS ORDERED: PHARMACY CONSULT - DOSE _____ XX SCH (09:00)
[2018-09-10] MEDS: FOLTX PO SCH (09:18)
[2018-09-10] MEDS: ZESTRIL TAB 10 MG PO SCH (09:18)
[2018-09-10] MEDS: SYNTHROID 100 mcg TAB PO SCH (09:18)
[2018-09-10] MEDS: ROCEPHIN VIAL 1 GRAM IVP SCH (09:18)
[2018-09-10] MEDS: DETROL LA 4 MG CAP EXT REL PO SCH (09:19)
[2018-09-10] MEDS: LASIX PO SCH ×2 (09:19→20:36)
[2018-09-10] MEDS: PROTONIX TAB 40 MG PO SCH ×2 (09:19→20:36)
[2018-09-10] MEDS: PEPCID TAB 20 MG PO SCH ×2 (09:19→20:36)
[2018-09-10] MEDS: NEURONTIN CAP 300 MG PO SCH ×2 (09:19→20:35)
[2018-09-10] MEDS: ZyPREXA TAB 5 MG PO SCH ×2 (09:19→20:34)
[2018-09-10] MEDS: ZITHROMAX TAB 250 MG PO SCH (09:19)
[2018-09-10] MEDS: NORVASC TAB 5 MG PO SCH (09:19)
[2018-09-10] MEDS: ELIQUIS PO SCH ×2 (09:19→20:33)
[2018-09-10] MEDS: MICRO K EXTEN CAP 10 MEQ PO SCH (09:20)
[2018-09-10] MEDS: ROBITUSSIN DM PO SCH ×4 (09:20→20:44)
[2018-09-10] MEDS: FLONASE NASAL SPRAY ENOSTRIL SCH (09:20)
[2018-09-10] MEDS: AFRIN NASAL SPRAY SCH ×2 (09:20→21:10)
[2018-09-10] MEDS: AMARYL TAB 4 MG PO SCH ×2 (09:20→20:35)
[2018-09-10] MEDS: CELEXA PO SCH (09:20)
[2018-09-10] MEDS ORDERED: MERREM PREMIX IV 500 MG 500 MG/50 ML BAG IV SCH (10:00)
[2018-09-10] MEDS ORDERED: MERREM VIAL ONE (11:19)
[2018-09-10] MEDS ORDERED: NS 100 ML IV + SPIKE MINIBAG* 0 ML IV ONE (11:19)
[2018-09-10] MEDS: MERREM VIAL IVP SCH ×2 (11:34→20:37)
--- NOTE | 2018-09-10 13:51 | VAS ---
HISTORY: Left arm swelling and pain Study: Venous Doppler ultrasound of the left upper extremity Comparison: No priors Technique: Grayscale, color and duplex Doppler evaluation of the veins of the left upper extremity are provided. Within veins amenable to compression and augmentation, these maneuvers were also performed. Findings: There is normal venous flow. No evidence of venous thrombosis or occlusion is seen. IMPRESSION: No evidence of venous thrombosis. Reported By:
[2018-09-10] MEDS: ULTRAM PO PRN ×2 (14:28→20:34)
--- NOTE | 2018-09-10 17:19 | RAD ---
History: Shortness of breath Technique: AP chest Comparison: 09/07/2018 Findings: Allowing for differences in technique, positioning, and degree of inspiration, there has been no significant interval change in the radiographic appearance of the chest. There is a right-sided chest port present. The tip terminates in the mid SVC. Dual lead pacemaker device again noted. Cardiac silhouette is mildly enlarged. Lungs appear clear. Impression: 1. No significant interval change. Reported By:
[2018-09-10] MEDS: MORPHINE SULFATE INJ 2 MG INJ IVP PRN ×2 (18:09→22:00)
[2018-09-10] MEDS: REQUIP PO SCH (20:34)
[2018-09-10] MEDS: ARICEPT TAB 10 MG PO SCH (20:35)
[2018-09-10] MEDS: SENOKOT PO SCH (20:44)
[2018-09-10] MEDS: SNACK - Diabetic Appropriate PO SCH (21:10)
[2018-09-10] MEDS: LIPITOR TAB 10 MG PO SCH (21:11)
[2018-09-11] MEDS: DUONEB 0.5 MG/3 MG IN SCH ×3 (05:02→20:26)
[2018-09-11] MEDS: MIRAPEX TAB 1 MG PO SCH ×3 (05:13→21:28)
[2018-09-11] MEDS: SINEMET (PLAIN) 25/250 MG PO SCH ×3 (05:15→21:28)
[2018-09-11] MEDS: TESSALON PERLES PO SCH ×3 (05:15→21:28)
[2018-09-11] MEDS: NS 1000 ML 1,000 ML IV SCH (06:14)
[2018-09-11 06:15] LABS: BASOPHILS # (AUTO) 0.1 X10^3/uL (0.0-0.1); BASOPHILS % (AUTO) 0.8 % (0.2-1.0); EOSINOPHILS # (AUTO) 0.1 x10^3/uL (0.0-0.2); EOSINOPHILS % (AUTO) 2.1 % (0.9-2.9); HEMATOCRIT 33.7 % (36.0-47.0); HEMOGLOBIN 11.3 g/dL (12.0-16.0); LYMPHOCYTES # (AUTO) 1.8 X10^3/uL (1.3-2.9); LYMPHOCYTES % (AUTO) 27.1 % (21.0-51.0); MEAN CORPUSCULAR HEMOGLOBIN 33.2 pg (27.0-34.0); MEAN CORPUSCULAR HGB CONC 33.6 g/dL (33.0-35.0); MEAN CORPUSCULAR VOLUME 99.1 fL (80.0-100.0); MONOCYTES # (AUTO) 0.6 x10^3/uL (0.3-0.8); MONOCYTES % (AUTO) 8.6 % (0.0-13.0); NEUTROPHILS # (AUTO) 4.1 x10^3/uL (2.2-4.8); NEUTROPHILS % (AUTO) 61.4 % (42.0-75.0); PLATELET COUNT 173 X10^3/uL (150.0-450.0); RED CELL DISTRIBUTION WIDTH 13.9 % (11.6-16.5); WHITE BLOOD COUNT 6.7 X10^3/uL (3.6-10.0)
[2018-09-11 06:25] LABS: ALBUMIN 2.8 g/dL (3.4-5.0); CALCIUM 8.2 mg/dL (8.5-10.1); CARBON DIOXIDE 27.8 mmol/L (21-32); COR CA(FOR HYPOALB) 9.2 mg/dL (8.5-10.1); CREATININE 1.43 mg/dL (0.55-1.02)
[2018-09-11] MEDS: PROTONIX TAB 40 MG PO SCH ×2 (08:50→20:43)
[2018-09-11] MEDS: AMARYL TAB 4 MG PO SCH ×2 (08:50→20:43)
[2018-09-11] MEDS: ZESTRIL TAB 10 MG PO SCH (08:50)
[2018-09-11] MEDS: CELEXA PO SCH (08:50)
[2018-09-11] MEDS: SYNTHROID 100 mcg TAB PO SCH (08:51)
[2018-09-11] MEDS: NEURONTIN CAP 300 MG PO SCH ×2 (08:51→20:55)
[2018-09-11] MEDS: ELIQUIS PO SCH ×2 (08:51→20:42)
[2018-09-11] MEDS: ZyPREXA TAB 5 MG PO SCH ×2 (08:52→20:40)
[2018-09-11] MEDS: LASIX PO SCH ×2 (08:52→20:40)
[2018-09-11] MEDS: NORVASC TAB 5 MG PO SCH (08:52)
[2018-09-11] MEDS: PEPCID TAB 20 MG PO SCH ×2 (08:52→20:43)
[2018-09-11] MEDS: DETROL LA 4 MG CAP EXT REL PO SCH (08:52)
[2018-09-11] MEDS: FOLTX PO SCH (08:53)
[2018-09-11] MEDS: ZITHROMAX TAB 250 MG PO SCH (08:53)
[2018-09-11] MEDS: MERREM VIAL IVP SCH ×2 (08:53→20:39)
[2018-09-11] MEDS: FLONASE NASAL SPRAY ENOSTRIL SCH (09:24)
[2018-09-11] MEDS: AFRIN NASAL SPRAY SCH ×2 (09:24→20:54)
[2018-09-11] MEDS: ROBITUSSIN DM PO SCH ×2 (09:24→13:16)
[2018-09-11] MEDS: MICRO K EXTEN CAP 10 MEQ PO SCH (09:24)
--- NOTE | 2018-09-11 10:00 | PCM.PROG ---
Progress Note - Progress Note for Day of Date of Exam: 09/08/18 - Subjective Subjective: WAS ADMITTED FOR DEHYDRATION, UTI, SHORTNESS OF BREATH, AND CONSTIPATION. TODAY, SHE IS ALERT AND ORIENTED, LYING IN BED ON MORNING ROUNDS. SHE CONTINUES WITH COMPLAINTS OF WEAKNESS AND SHORTNESS OF BREATH. SHE ALSO CONTINUES WITH COMPLAINTS OF LOWER ABDOMEN AND LOWER ABDOMINAL PAIN AND BILATERAL LEG PAIN AND CRAMPING. ON EXAMINATION, HEART IS REGULAR IN RATE AND RHYTHM. BILATERAL LUNGS ARE NOTED WITH DIMINISHED LUNG SOUNDS THROUGHOUT. ABDOMEN IS ROUND, SOFT, AND NOTED WITH MILD, SUPRAPUBIC TENDERNESS TO PALPATION. THERE IS TRACE EDEMA NOTED TO BILATERAL LOWER EXTREMITIES. HER VITALS THIS MORNING ARE 98.5-64-18-93%-123/58. LABS WERE OBTAINED. ABNORMAL LAB VALUES INCLUDE THE FOLLOWING: RBC 3.22, HGB 10.8, HCT 32.1, CHLORIDE 111, BUN 30, CREATININE 2.17, GLUCOSE 109, CALCIUM 7.1, ALBUMIN 8.2, TOTAL PROTEIN 5.3, ALBUMIN 2.6. SHE IS CURRENTLY RECEIVING IV FLUIDS, IV ANTIBIOTICS, RESPIRATORY TREATMENTS, AND LAXATIVES. TODAY, WE WILL CONTINUE WITH CURRENT PLAN OF CARE AND ADD MIRAPEX 0.5MG PO TID. OTHERWISE, WE WILL FOLLOW UP WITH AM LABS AND CONTINUE TO MONITOR. - Past Medical Family Social History Past Med/Fam/Surg Hx: No changes since H&P Allergies: Allergies latex Allergy (Verified 09/07/18 16:52) ADHESIVE TAPE Allergy (Uncoded 09/07/18 16:52) - Review of Systems ROS: No change since H&P - Vital Signs and I&O's Vital Signs: Temperature 98.6 F Pulse Rate [Right Brachial] 76 Pulse Rate 67 Respiratory Rate 20 Blood Pressure [Left Calf] 149/72 Blood Pressure [Right Arm] 163/79 Blood Pressure [Left Arm] 155/78 Blood Pressure 153/72 O2 Sat by Pulse Oximetry 95 Intake and Output: Intake & Output 09/08/18 09/09/18 09/10/18 09/11/18 12:59 12:59 11:59 11:59 Intake Total 1983 Balance 1983 - Physical Exam Oriented: Normal Eyes: Normal Ear: Normal Nose: Normal Throat: Normal Respiratory: Generalized, Diminished Cardiovascular: Edema (LOWER EXTREMITY TRACE EDEMA ). negative: S3, S4, Murmur : Normal Auscultation: Bowel Sounds: Decreased Palpation: Normal Tenderness: Diffuse, Mild. negative: Rebound, Guarding, Rigidity Skin: Normal Musculoskeletal: Back:Lumbar, Tender Psychiatric: Normal Mood Description: Calm Affect: Normal Speech Pattern: Clear, Appropriate - Laboratory and Diagnostics Result Diagrams: 09/11/18 05:35 09/11/18 05:35 Labs: 09/07/18 22:39 Urine,Clean Catch Urine Culture - Final Escherichia Coli Laboratory WBC 6.7 X10^3/uL (3.6-10.0) 09/11/18 05:35 RBC 3.40 X10^6/uL (3.5-5.4) L 09/11/18 05:35 Hgb 11.3 g/dL (12.0-16.0) L 09/11/18 05:35 Hct 33.7 % (36.0-47.0) L 09/11/18 05:35 MCV 99.1 fL (80.0-100.0) 09/11/18 05:35 MCH 33.2 pg (27.0-34.0) 09/11/18 05:35 MCHC 33.6 g/dL (33.0-35.0) 09/11/18 05:35 RDW 13.9 % (11.6-16.5) 09/11/18 05:35 Plt Count 173 X10^3/uL (150.0-450.0) 09/11/18 05:35 MPV 9.0 fL (7.4-11.0) 09/11/18 05:35 Neut % (Auto) 61.4 % (42.0-75.0) 09/11/18 05:35 Lymph % (Auto) 27.1 % (21.0-51.0) 09/11/18 05:35 [place] % (Auto) 8.6 % (0.0-13.0) 09/11/18 05:35 Eos % (Auto) 2.1 % (0.9-2.9) 09/11/18 05:35 Baso % (Auto) 0.8 % (0.2-1.0) 09/11/18 05:35 Neut # (Auto) 4.1 x10^3/uL (2.2-4.8) 09/11/18 05:35 Lymph # (Auto) 1.8 X10^3/uL (1.3-2.9) 09/11/18 05:35 [place] # (Auto) 0.6 x10^3/uL (0.3-0.8) 09/11/18 05:35 Eos # (Auto) 0.1 x10^3/uL (0.0-0.2) 09/11/18 05:35 Baso # (Auto) 0.1 X10^3/uL (0.0-0.1) 09/11/18 05:35 Absolute Nucleated RBC 0.0 /100WBC 09/11/18 05:35 D-Dimer 1020 ng/mL (0-400) H* 09/07/18 17:38 Sodium 141 mmol/L (136-145) 09/11/18 05:35 Corrected Sodium 143 mmol/L (136-145) 09/11/18 05:35 Potassium 4.0 mmol/L (3.5-5.1) 09/11/18 05:35 Chloride 106 mmol/L (98-107) 09/11/18 05:35 Carbon Dioxide 27.8 mmol/L (21-32) 09/11/18 05:35 BUN 11 mg/dL (7-18) 09/11/18 05:35 Creatinine 1.43 mg/dL (0.55-1.02) H 09/11/18 05:35 Est GFR (MDRD) Af Amer 45 (>60) L 09/11/18 05:35 Est GFR (MDRD) Non-Af 37 (>60) L 09/11/18 05:35 Glucose 202 mg/dL (65-99) H 09/11/18 05:35 POC Glucose (mg/dL) 212 mg/dL (65-99) H 09/10/18 05:37 Calcium 8.2 mg/dL (8.5-10.1) L 09/11/18 05:35 Corrected Calcium 9.2 mg/dL (8.5-10.1) 09/11/18 05:35 Total Bilirubin 0.20 mg/dL (0.2-1.0) 09/11/18 05:35 AST 18 Units/L (15-37) 09/11/18 05:35 ALT 14 Units/L (12-78) 09/11/18 05:35 Alkaline Phosphatase 56 Units/L (46-116) 09/11/18 05:35 Creatine Kinase 49 Units/L (26-192) 09/09/18 12:30 CK-MB (CK-2) < 1.0 ng/mL (0-4.0) 09/09/18 12:30 CK/CKMB % Calc 2.0 % (<4) 09/09/18 12:30 Troponin I < 0.02 ng/mL (0-1.5) 09/09/18 12:30 C-Reactive Protein 14.20 mg/L (0-3.0) H 09/07/18 17:38 Total Protein 6.0 g/dL (6.4-8.2) L 09/11/18 05:35 Albumin 2.8 g/dL (3.4-5.0) L 09/11/18 05:35 Globulin 3.2 g/dL (2.5-4.5) 09/11/18 05:35 Albumin/Globulin Ratio 0.9 Ratio (1.1-2.1) L 09/11/18 05:35 Specimen Type Clean catch urine 09/07/18 22:39 Urine Color Yellow (YELLOW) 09/07/18 22:39 Urine Appearance Slightly hazy (CLEAR) 09/07/18 22:39 Urine pH 5.0 (5.0 - 8.0) 09/07/18 22:39 Ur Specific [place] 1.015 (1.000-1.030) 09/07/18 22:39 Urine Protein Negative (NEGATIVE) 09/07/18 22:39 Urine Glucose (UA) Negative (NEGATIVE) 09/07/18 22:39 Urine Ketones Negative (NEGATIVE) 09/07/18 22:39 Urine Occult Blood Negative (NEGATIVE) 09/07/18 22:39 Urine Nitrite Positive (NEGATIVE) 09/07/18 22:39 Urine Bilirubin 1+ (NEGATIVE) 09/07/18 22:39 Urine Urobilinogen Normal (NORMAL) 09/07/18 22:39 Ur Leukocyte Esterase 1+ (NEGATIVE) 09/07/18 22:39 Urine RBC 0-2 /HPF (NONE SEEN) 09/07/18 22:39 Urine WBC 3-5 /HPF (NONE SEEN) 09/07/18 22:39 Ur Squamous Epith Cells Many /HPF (NEGATIVE) 09/07/18 22:39 Urine Bacteria 3+ /HPF (NEGATIVE) 09/07/18 22:39 Hyaline Casts Few /LPF (NEGATIVE) 09/07/18 22:39 Ur Culture Indicated? Yes/culture set up 09/07/18 22:39 - Plan (1) Dehydration Status: Acute Plan: NORMAL SALINE, CONTINUE TO MONITOR (2) Urinary tract infection Status: Acute Qualifiers: Urinary tract infection type: acute cystitis Hematuria presence: without hematuria Qualified Code(s): N30.00 - Acute cystitis without hematuria Plan: IV ANTIBIOTICS, IV FLUIDS, CONTINUE TO MONITOR (3) SOB (shortness of breath) Status: Acute Plan: RESPIRATORY TREATMENTS, SUPPLEMENTAL OXYGEN, MONITOR CHEST XRAY (4) Constipation Status: Acute Qualifiers: Constipation type: unspecified constipation type Qualified Code(s): K59.00 - Constipation, unspecified Plan: MONITOR (5) Lower back pain Status: Acute Qualifiers: Chronicity: acute Back pain laterality: midline Sciatica presence: unspecified whether sciatica present Qualified Code(s): M54.5 - Low back pain Plan: PAIN MANAGEMENT, CONTINUE TO [facility]
[2018-09-11] MEDS: MORPHINE SULFATE INJ 2 MG INJ IVP PRN ×3 (10:08→21:29)
--- NOTE | 2018-09-11 10:24 | PCM.PROG ---
Progress Note - Progress Note for Day of Date of Exam: 09/11/18 - Subjective Subjective: WAS ADMITTED FOR DEHYDRATION, UTI, SHORTNESS OF BREATH, AND CONSTIPATION. TODAY, SHE IS ALERT AND ORIENTED, LYING IN BED ON MORNING ROUNDS. SHE CONTINUES WITH COMPLAINTS OF WEAKNESS AND SHORTNESS OF BREATH. SHE ALSO CONTINUES WITH COMPLAINTS OF LOWER ABDOMEN AND LOWER ABDOMINAL PAIN. SHE DID HAVE AN EPISODE OF CHEST PAIN OVER THE WEEKEND. CARDIAC ENZYMES AND EKGS WERE STABLE. SHE HAD A FEW BOWEL MOVEMENTS ON TUESDAY, BUT NON SINCE. ON EXAMINATION, HEART IS REGULAR IN RATE AND RHYTHM. BILATERAL LUNGS ARE NOTED WITH DIMINISHED LUNG SOUNDS THROUGHOUT. ABDOMEN IS ROUND, SOFT, AND NOTED WITH MILD, SUPRAPUBIC TENDERNESS TO PALPATION. THERE IS 1+ EDEMA NOTED TO BILATERAL LOWER EXTREMITIES. HER VITALS THIS MORNING ARE 98.6-76-20-95%-163/79. LABS WERE OBTAINED. ABNORMAL LAB VALUES INCLUDE THE FOLLOWING: RBC 3.40, HGB 11.3, HCT 33.7, CREATININE 1.43, GLUCOSE 202, CALCIUM 8.2, TOTAL PROTEIN 6.0, ALBUMIN 2.8. SHE IS CURRENTLY RECEIVING IV FLUIDS, IV ANTIBIOTICS, RESPIRATORY TREATMENTS, AND LAXATIVES. TODAY, WE WILL DISCONTINUE HER IV FLUIDS AND OBTAIN AN ECHO. WE WILL ALSO OBTAIN A KUB. OTHERWISE, WE WILL CONTINUE WITH CURRENT PLAN OF CARE. WE WILL FOLLOW UP WITH AM LABS AND CONTINUE TO MONITOR. - Past Medical Family Social History Past Med/Fam/Surg Hx: No changes since H&P Allergies: Allergies latex Allergy (Verified 09/07/18 16:52) ADHESIVE TAPE Allergy (Uncoded 09/07/18 16:52) - Review of Systems ROS: No change since H&P - Vital Signs and I&O's Vital Signs: Temperature 98.6 F Pulse Rate [Right Brachial] 76 Pulse Rate 67 Respiratory Rate 20 Blood Pressure [Left Calf] 149/72 Blood Pressure [Right Arm] 163/79 Blood Pressure [Left Arm] 155/78 Blood Pressure 153/72 O2 Sat by Pulse Oximetry 95 Intake and Output: Intake & Output 09/08/18 09/09/18 09/10/18 09/11/18 12:59 12:59 11:59 11:59 Intake Total 1983 Balance 1983 - Physical Exam Oriented: Normal Eyes: Normal Ear: Normal Nose: Normal Throat: Normal Respiratory: Generalized, Diminished Cardiovascular: Edema (LOWER EXTREMITY TRACE EDEMA ). negative: S3, S4, Murmur : Normal Auscultation: Bowel Sounds: Decreased Palpation: Normal Tenderness: Diffuse, Mild. negative: Rebound, Guarding, Rigidity Skin: Normal Musculoskeletal: Back:Lumbar, Tender Psychiatric: Normal Mood Description: Calm Affect: Normal Speech Pattern: Clear, Appropriate - Laboratory and Diagnostics Result Diagrams: 09/11/18 05:35 09/11/18 05:35 Labs: 09/07/18 22:39 Urine,Clean Catch Urine Culture - Final Escherichia Coli Laboratory WBC 6.7 X10^3/uL (3.6-10.0) 09/11/18 05:35 RBC 3.40 X10^6/uL (3.5-5.4) L 09/11/18 05:35 Hgb 11.3 g/dL (12.0-16.0) L 09/11/18 05:35 Hct 33.7 % (36.0-47.0) L 09/11/18 05:35 MCV 99.1 fL (80.0-100.0) 09/11/18 05:35 MCH 33.2 pg (27.0-34.0) 09/11/18 05:35 MCHC 33.6 g/dL (33.0-35.0) 09/11/18 05:35 RDW 13.9 % (11.6-16.5) 09/11/18 05:35 Plt Count 173 X10^3/uL (150.0-450.0) 09/11/18 05:35 MPV 9.0 fL (7.4-11.0) 09/11/18 05:35 Neut % (Auto) 61.4 % (42.0-75.0) 09/11/18 05:35 Lymph % (Auto) 27.1 % (21.0-51.0) 09/11/18 05:35 [place] % (Auto) 8.6 % (0.0-13.0) 09/11/18 05:35 Eos % (Auto) 2.1 % (0.9-2.9) 09/11/18 05:35 Baso % (Auto) 0.8 % (0.2-1.0) 09/11/18 05:35 Neut # (Auto) 4.1 x10^3/uL (2.2-4.8) 09/11/18 05:35 Lymph # (Auto) 1.8 X10^3/uL (1.3-2.9) 09/11/18 05:35 [place] # (Auto) 0.6 x10^3/uL (0.3-0.8) 09/11/18 05:35 Eos # (Auto) 0.1 x10^3/uL (0.0-0.2) 09/11/18 05:35 Baso # (Auto) 0.1 X10^3/uL (0.0-0.1) 09/11/18 05:35 Absolute Nucleated RBC 0.0 /100WBC 09/11/18 05:35 D-Dimer 1020 ng/mL (0-400) H* 09/07/18 17:38 Sodium 141 mmol/L (136-145) 09/11/18 05:35 Corrected Sodium 143 mmol/L (136-145) 09/11/18 05:35 Potassium 4.0 mmol/L (3.5-5.1) 09/11/18 05:35 Chloride 106 mmol/L (98-107) 09/11/18 05:35 Carbon Dioxide 27.8 mmol/L (21-32) 09/11/18 05:35 BUN 11 mg/dL (7-18) 09/11/18 05:35 Creatinine 1.43 mg/dL (0.55-1.02) H 09/11/18 05:35 Est GFR (MDRD) Af Amer 45 (>60) L 09/11/18 05:35 Est GFR (MDRD) Non-Af 37 (>60) L 09/11/18 05:35 Glucose 202 mg/dL (65-99) H 09/11/18 05:35 POC Glucose (mg/dL) 212 mg/dL (65-99) H 09/10/18 05:37 Calcium 8.2 mg/dL (8.5-10.1) L 09/11/18 05:35 Corrected Calcium 9.2 mg/dL (8.5-10.1) 09/11/18 05:35 Total Bilirubin 0.20 mg/dL (0.2-1.0) 09/11/18 05:35 AST 18 Units/L (15-37) 09/11/18 05:35 ALT 14 Units/L (12-78) 09/11/18 05:35 Alkaline Phosphatase 56 Units/L (46-116) 09/11/18 05:35 Creatine Kinase 49 Units/L (26-192) 09/09/18 12:30 CK-MB (CK-2) < 1.0 ng/mL (0-4.0) 09/09/18 12:30 CK/CKMB % Calc 2.0 % (<4) 09/09/18 12:30 Troponin I < 0.02 ng/mL (0-1.5) 09/09/18 12:30 C-Reactive Protein 14.20 mg/L (0-3.0) H 09/07/18 17:38 Total Protein 6.0 g/dL (6.4-8.2) L 09/11/18 05:35 Albumin 2.8 g/dL (3.4-5.0) L 09/11/18 05:35 Globulin 3.2 g/dL (2.5-4.5) 09/11/18 05:35 Albumin/Globulin Ratio 0.9 Ratio (1.1-2.1) L 09/11/18 05:35 Specimen Type Clean catch urine 09/07/18 22:39 Urine Color Yellow (YELLOW) 09/07/18 22:39 Urine Appearance Slightly hazy (CLEAR) 09/07/18 22:39 Urine pH 5.0 (5.0 - 8.0) 09/07/18 22:39 Ur Specific [place] 1.015 (1.000-1.030) 09/07/18 22:39 Urine Protein Negative (NEGATIVE) 09/07/18 22:39 Urine Glucose (UA) Negative (NEGATIVE) 09/07/18 22:39 Urine Ketones Negative (NEGATIVE) 09/07/18 22:39 Urine Occult Blood Negative (NEGATIVE) 09/07/18 22:39 Urine Nitrite Positive (NEGATIVE) 09/07/18 22:39 Urine Bilirubin 1+ (NEGATIVE) 09/07/18 22:39 Urine Urobilinogen Normal (NORMAL) 09/07/18 22:39 Ur Leukocyte Esterase 1+ (NEGATIVE) 09/07/18 22:39 Urine RBC 0-2 /HPF (NONE SEEN) 09/07/18 22:39 Urine WBC 3-5 /HPF (NONE SEEN) 09/07/18 22:39 Ur Squamous Epith Cells Many /HPF (NEGATIVE) 09/07/18 22:39 Urine Bacteria 3+ /HPF (NEGATIVE) 09/07/18 22:39 Hyaline Casts Few /LPF (NEGATIVE) 09/07/18 22:39 Ur Culture Indicated? Yes/culture set up 09/07/18 22:39 - Plan (1) Dehydration Status: Acute Plan: NORMAL SALINE, CONTINUE TO MONITOR (2) Urinary tract infection Status: Acute Qualifiers: Urinary tract infection type: acute cystitis Hematuria presence: without hematuria Qualified Code(s): N30.00 - Acute cystitis without hematuria Plan: IV ANTIBIOTICS, IV FLUIDS, CONTINUE TO MONITOR (3) SOB (shortness of breath) Status: Acute Plan: RESPIRATORY TREATMENTS, SUPPLEMENTAL OXYGEN, MONITOR CHEST XRAY (4) Constipation Status: Acute Qualifiers: Constipation type: unspecified constipation type Qualified Code(s): K59.00 - Constipation, unspecified Plan: MONITOR (5) Lower back pain Status: Acute Qualifiers: Chronicity: acute Back pain laterality: midline Sciatica presence: unspecified whether sciatica present Qualified Code(s): M54.5 - Low back pain Plan: PAIN MANAGEMENT, CONTINUE TO [facility] (6) CHF (congestive heart failure) Status: Chronic Qualifiers: Qualified Code(s): I50.43 - Acute on chronic combined systolic (congestive) and diastolic (congestive) heart failure Plan: OBTAIN ECHO, CONTINUE HOME MEDS (7) Diabetes mellitus, type II Status: Chronic Qualifiers: 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: without penitentiary use Diabetes mellitus complication status: without complication Qualified Code(s): E11.9 - Type 2 diabetes mellitus without complications Plan: MONITOR OTBS, SLIDING SCALE INSULE, CONTINUE HOME MEDS, CONTINUE TO MONITOR (8) HTN (hypertension) Status: Chronic Qualifiers: Hypertension type: essential hypertension Qualified Code(s): I10 - Essential (primary) hypertension Plan: CONTINUE HOME MEDS, CONTINUE TO [facility] (9) Hyperlipidemia Status: Chronic Qualifiers: Hyperlipidemia type: mixed hyperlipidemia Qualified Code(s): E78.2 - Mixed hyperlipidemia Plan: CONTINUE HOME MEDS, CONTINUE TO [facility] (10) Hypothyroid Status: Chronic Qualifiers: Hypothyroidism type: acquired Qualified Code(s): E03.9 - Hypothyroidism, unspecified Plan: CONTINUE HOME MEDS, CONTINUE TO [facility] (11) Parkinson disease Status: Chronic Plan: CONTINUE HOME MEDS, CONTINUE TO [facility] (12) Restless leg syndrome Status: Chronic Plan: MIRAPEX 0.5MG PO TID, CONTINUE HOME MEDS, CONTINUE TO [facility]
--- NOTE | 2018-09-11 12:05 | RAD ---
HISTORY: Abdominal pain. Constipation. Study: KUB Comparison: 05/25/2018 Findings: The lung bases show minimal interstitial scarring versus infiltrate in the left lung base. The heart size is normal. Electronic cardiac device is present on the left and its leads appear to be in appropriate position. Examination of the abdomen reveals a moderate amount of stool present within the colon. Minimal is noted elsewhere. I see no evidence of bowel obstruction or pneumoperitoneum. [id number] lumbar spondylosis is noted. Moderate osteopenia is present. A left hip prosthesis is present. IMPRESSION: 1. Minimal atelectatic change/infiltrate in the left lung base versus scarring. 2. Moderate amount of stool within the colon. 3. No evidence of bowel obstruction or pneumoperitoneum is present. Reported By:
[2018-09-11] MEDS: COREG TAB 6.25 MG PO SCH ×2 (13:16→20:40)
[2018-09-11] MEDS: SENOKOT PO SCH (20:41)
[2018-09-11] MEDS: LIPITOR TAB 10 MG PO SCH (20:42)
[2018-09-11] MEDS: REQUIP PO SCH (20:44)
[2018-09-11] MEDS: ARICEPT TAB 10 MG PO SCH (20:44)
[2018-09-11] MEDS: SNACK - Diabetic Appropriate PO SCH (20:54)
[2018-09-11] MEDS: MIRALAX POWDER (1 DOSE 17 G) PO SCH (20:54)
[2018-09-12] MEDS ORDERED: NS 1000 ML 1,000 ML ONE (00:25)
[2018-09-12] MEDS: MORPHINE SULFATE INJ 2 MG INJ IVP PRN (04:32)
[2018-09-12] MEDS: TESSALON PERLES PO SCH (05:23)
[2018-09-12] MEDS: SINEMET (PLAIN) 25/250 MG PO SCH (05:23)
[2018-09-12] MEDS: MIRAPEX TAB 1 MG PO SCH (05:23)
[2018-09-12] MEDS: DUONEB 0.5 MG/3 MG IN SCH (05:54)
[2018-09-12 06:22] LABS: BASOPHILS # (AUTO) 0.1 X10^3/uL (0.0-0.1); EOSINOPHILS # (AUTO) 0.2 x10^3/uL (0.0-0.2); EOSINOPHILS % (AUTO) 2.1 % (0.9-2.9); HEMATOCRIT 34.3 % (36.0-47.0); HEMOGLOBIN 11.6 g/dL (12.0-16.0); LYMPHOCYTES # (AUTO) 2.3 X10^3/uL (1.3-2.9); LYMPHOCYTES % (AUTO) 23.2 % (21.0-51.0); MEAN CORPUSCULAR HEMOGLOBIN 33.2 pg (27.0-34.0); MEAN CORPUSCULAR HGB CONC 33.9 g/dL (33.0-35.0); MEAN CORPUSCULAR VOLUME 98.1 fL (80.0-100.0); MEAN PLATELET VOLUME 8.5 fL (7.4-11.0); MONOCYTES # (AUTO) 0.7 x10^3/uL (0.3-0.8); MONOCYTES % (AUTO) 7.6 % (0.0-13.0); NEUTROPHILS # (AUTO) 6.4 x10^3/uL (2.2-4.8); NEUTROPHILS % (AUTO) 66.1 % (42.0-75.0); PLATELET COUNT 189 X10^3/uL (150.0-450.0); RED CELL DISTRIBUTION WIDTH 13.8 % (11.6-16.5); WHITE BLOOD COUNT 9.7 X10^3/uL (3.6-10.0)
[2018-09-12 06:33] LABS: ALBUMIN 2.7 g/dL (3.4-5.0); CARBON DIOXIDE 29.9 mmol/L (21-32); CREATININE 1.45 mg/dL (0.55-1.02); TOTAL PROTEIN 5.9 g/dL (6.4-8.2)
[2018-09-12] MEDS ORDERED: LASIX IVP ONE (09:11)
[2018-09-12] MEDS: DETROL LA 4 MG CAP EXT REL PO SCH (09:59)
[2018-09-12] MEDS: ELIQUIS PO SCH (09:59)
[2018-09-12] MEDS: NORVASC TAB 5 MG PO SCH (09:59)
[2018-09-12] MEDS: MICRO K EXTEN CAP 10 MEQ PO SCH (09:59)
[2018-09-12] MEDS: PROTONIX TAB 40 MG PO SCH (10:00)
[2018-09-12] MEDS: FOLTX PO SCH (10:00)
[2018-09-12] MEDS: PEPCID TAB 20 MG PO SCH (10:00)
[2018-09-12] MEDS: COREG TAB 6.25 MG PO SCH (10:00)
[2018-09-12] MEDS: SYNTHROID 100 mcg TAB PO SCH (10:01)
[2018-09-12] MEDS: ZESTRIL TAB 10 MG PO SCH (10:01)
[2018-09-12] MEDS: CELEXA PO SCH (10:01)
[2018-09-12] MEDS: MIRALAX POWDER (1 DOSE 17 G) PO SCH (10:01)
[2018-09-12] MEDS: AMARYL TAB 4 MG PO SCH (10:02)
[2018-09-12] MEDS: ZITHROMAX TAB 250 MG PO SCH (10:02)
[2018-09-12] MEDS: NEURONTIN CAP 300 MG PO SCH (10:02)
[2018-09-12] MEDS: ZyPREXA TAB 5 MG PO SCH (10:04)
[2018-09-12] MEDS: MERREM VIAL IVP SCH (10:05)
[2018-09-12] MEDS: LASIX PO SCH (10:23)
[2018-09-12] MEDS: FLONASE NASAL SPRAY ENOSTRIL SCH (10:24)
[2018-09-12 12:42] VITALS: BP 151/88
--- NOTE | 2018-10-17 01:43 | DR.CARTERD ---
- Discharge Summary for: Discharge Summary for Date of:: 09/12/18 - Admission Date Date of Admission: 09/07/18 - Admission Diagnoses Admission Diagnosis: (1) Urinary tract infection (2) Dehydration (3) SOB (shortness of breath) (4) Constipation (5) Lower back pain - Discharge Date Discharge Date: 09/12/18 - Discharge Diagnoses Discharge Diagnosis: (1) CHF (congestive heart failure) (2) Urinary tract infection (3) Dehydration (3) SOB (shortness of breath) (4) Constipation (5) Lower back pain (7) Diabetes mellitus, type II (8) HTN (hypertension) (9) Hyperlipidemia (10) Hypothyroid (11) Parkinson disease (12) Restless leg syndrome - Hospital Course Hospital Course: DAY ONE, IS A 82 YEAR OLD PATIENT OF OURS WHO PRESENTED TO THE EMERGENCY ROOM WITH COMPLAINTS OF GENERALIZED PAIN AND WEAKNESS. SHE ALSO REPORTED GENERALIZED MALAISE, BACK PAIN, AND SHORTNESS OF BREATH FOR THE PAST 3- 4 DAYS. ON ARRIVAL, VITALS WERE 98.0-77-18-95%-153/72. LABS WERE OBTAINED. ABNORMAL LAB VALUES INCLUDE THE FOLLOWING: BUN 32, CREATININE 2.63, GLUCOSE 119, CALCIUM 8.2, ALT 7, CRP 14.20, ALBUMIN 3.2, D-DIMER 1020. URINALYSIS REVEALED: WBC 3-5, RBC 0-2, LEUKOCYTES 1+, BACTERIA 3+. A LUMBAR SPINE CT WAS OBTAINED AND REVEALED: CHRONIC DEGENERATIVE CHANGES; A LARGE VOLUME OF RETAINED STOOL; DIVERTICULOSIS. CHEST XRAY REVEALED: CARDIOMEGALY AND CHRONIC LUNG CHANGES WITHOUT OTHER ACUTE CHEST PROCESS. SHE WAS ADMITTED FOR FURTHER EVALUATION AND TREATMENT OF DEHYDRATION, UTI, SHORTNESS OF BREATH, AND CONSTIPATION. SHE WAS STARTED ON NORMAL SALINE, ANTIBIOTICS, RESPIRATORY TREATMENTS, AND HOME MEDICATIONS WERE RESUMED. WE FOLLOWED-UP WITH AM LABS AND CONTINUED TO MONITOR PATIENT. DAY TWO, SHE WAS ALERT AND ORIENTED, LYING IN BED ON MORNING ROUNDS. SHE CONTINUED WITH COMPLAINTS OF WEAKNESS AND SHORTNESS OF BREATH. SHE ALSO CONTINUED WITH COMPLAINTS OF LOWER ABDOMEN AND LOWER ABDOMINAL PAIN AND BILATERAL LEG PAIN AND CRAMPING. ON EXAMINATION, HEART WAS REGULAR IN RATE AND RHYTHM. BILATERAL LUNGS WERE NOTED WITH DIMINISHED LUNG SOUNDS THROUGHOUT. ABDOMEN WAS ROUND, SOFT, AND NOTED WITH MILD, SUPRAPUBIC TENDERNESS TO PALPATION. THERE WAS TRACE EDEMA NOTED TO BILATERAL LOWER EXTREMITIES. HER VITALS THIS MORNING WERE 98.5-64-18-93%-123/58. LABS WERE OBTAINED. ABNORMAL LAB VALUES INCLUDED THE FOLLOWING: RBC 3.22, HGB 10.8, HCT 32.1, CHLORIDE 111, BUN 30, CREATININE 2.17, GLUCOSE 109, CALCIUM 7.1, ALBUMIN 8.2, TOTAL PROTEIN 5.3, ALBUMIN 2.6. SHE WAS RECEIVING IV FLUIDS, IV ANTIBIOTICS, RESPIRATORY TREATMENTS, AND LAXATIVES. WE CONTINUED WITH CURRENT PLAN OF CARE AND ADD MIRAPEX 0.5MG PO TID. WE FOLLOWED UP WITH AM LABS AND CONTINUED TO MONITOR. DAY THREE, The patient does have a history of coronary artery disease and has been under the care of Dr. Tomas. The patients daughter stated that they attempted to contact him several times, they were concerned that it may be car diac related. Her shortness of breath was different from her chronic breathing issues stated per daughter. The patient did have an elevated D-Dimer on evaluation in the ER however her renal function was not stable enough to do a CTA of the chest. The patients white count this morning was 6.5, hemoglobin 10.6. Her BUN was 24. Creatine improved from yesterday, it was 2.17 and today it is 1.92. She had gentle IV hydration. The patients chest x-ray on admission showed some chronic changes. We repeated a.m. labs. Continued with blood pressure and lipid control. She was awake, alert, oriented, and complaining of some mild nausea. The patient did have diffuse diminished lung bases. Heart rate revealed regular rate of rhythm. Abdomen was slightly obese but nontender. Bowel sounds were present times all four quadrants. The patient did have mild trace lower extremity edema. She was in no acute distress this morning. Day Four, She was awake, alert, and oriented. The patient complained of weakness all over and mild shortness of breath. She stated that she has no energy. The patient did have bilateral diminished lung bases. No rales or rhonchi. Heart rate revealed regular rate of rhythm. She did have a pacemaker present. Abdomen was soft and nontender. The patient complained of some nausea but no tenderness. Bowel sounds were present times all four quadrants. Trace lower extremity edema bilaterally and diffuse muscle weakness. We continued to monitor. Day Five, SHE CONTINUED WITH COMPLAINTS OF WEAKNESS AND SHORTNESS OF BREATH. SHE ALSO CONTINUED WITH COMPLAINTS OF LOWER ABDOMEN AND LOWER ABDOMINAL PAIN. SHE DID HAVE AN EPISODE OF CHEST PAIN OVER THE WEEKEND. CARDIAC ENZYMES AND EKGS WERE STABLE. SHE HAD A FEW BOWEL MOVEMENTS ON TUESDAY, BUT NONE SINCE. ON EXAMINATION, HEART WAS REGULAR IN RATE AND RHYTHM. BILATERAL LUNGS WERE NOTED WITH DIMINISHED LUNG SOUNDS THROUGHOUT. ABDOMEN WAS ROUND, SOFT, AND NOTED WITH MILD, SUPRAPUBIC TENDERNESS TO PALPATION. THERE WAS 1+ EDEMA NOTED TO BILATERAL LOWER EXTREMITIES. HER VITALS THIS MORNING WERE 98.6-76-20-95%-163/79. LABS WERE OBTAINED. ABNORMAL LAB VALUES INCLUDED THE FOLLOWING: RBC 3.40, HGB 11.3, HCT 33.7, CREATININE 1.43, GLUCOSE 202, CALCIUM 8.2, TOTAL PROTEIN 6.0, ALBUMIN 2.8. SHE WAS RECEIVING IV FLUIDS, IV ANTIBIOTICS, RESPIRATORY TREATMENTS, AND LAXATIVES. WE DISCONTINUED HER IV FLUIDS AND OBTAINED AN ECHO. WE ALSO OBTAINED A KUB. WE CONTINUED WITH CURRENT PLAN OF CARE. WE FOLLOWED UP WITH AM LABS AND CONTINUED TO MONITOR. DAY SIX, PATIENT WAS RESTING QUIETLY IN BED ALERT AND ORIENTED. PATIENT VOICED THAT HER SYMPTOMS WERE MUCH IMPROVED THIS AM. LABS WERE IN NORMAL RANGE FOR PATIENT. NO COMPLAINTS OF SHORTNESS OF BREATH. STATED SHE FELT LIKE HER ENERGY LEVEL WAS BETTER. WE PLANNED FOR DISCHARGE WITH HOME HEALTH. INSTRUCTIONS FOR MEDICATIONS AND FOLLOW UP WERE DISCUSSED WITH PATIENT AND FAMILY, BOTH VOICED UNDERSTANDING. PATIENT DISCHARGED HOME IN STABLE CONDITION WITH FAMILY. - Discharge Medications Discharge Medications: Home Medication List Centratex 2 cap PO QDAY 09/08/18 [History] fluticasone [Flonase Allergy Relief] 2 spray INTRANASAL DAILY 09/08/18 [History] morphine concentrate 0.25 - 2 ml PO Q2H PRN 09/08/18 [History] olanzapine [Zyprexa] 2.5 mg PO BID 09/08/18 [History] sulfamethoxazole-trimethoprim [Bactrim DS] 1 tab PO Q12W 09/08/18 [History] polyethylene glycol 3350 [Miralax] 17 g PO HS #3350 g 09/12/18 [Rx] pramipexole 0.5 mg PO TID #90 tab 09/12/18 [Rx] Prescriptions: polyethylene glycol 3350 [Miralax] Ramiro Petit pramipexole Ramiro Petit Ambulatory Orders amlodipine [Norvasc] 5 mg PO DAILY 12/15/17 atorvastatin [Lipitor] 10 mg PO HS 12/15/17 carbidopa-levodopa 1 tab PO TID 12/15/17 carvedilol [Coreg] 6.25 mg PO BID PRN 12/15/17 cholecalciferol (vitamin D3) [Vitamin D3] 2,000 unit PO DAILY 12/15/17 citalopram 20 mg PO DAILY 12/15/17 donepezil [Aricept] 10 mg PO HS 12/15/17 famotidine 20 mg PO BID 12/15/17 furosemide [Lasix] 20 mg PO BID PRN 12/15/17 gabapentin 300 mg PO TID 12/15/17 glimepiride 2 mg PO BID 12/15/17 levothyroxine [Synthroid] 1 tab PO DAILY 12/15/17 lisinopril [Prinivil] 10 mg PO DAILY 12/15/17 pantoprazole [Protonix] 40 mg PO BID 12/15/17 potassium chloride 4 tab PO DAILY 12/15/17 ropinirole [Requip] 2 mg PO HS 12/15/17 apixaban [Eliquis] 2.5 mg PO BID 01/24/18 hydrocodone-acetaminophen [[place]] 1 tab PO QID PRN 01/24/18 ondansetron [Zofran ODT] 8 mg PO Q8H PRN 05/25/18 sennosides-docusate sodium [Senna-S] 2 tab PO HS 05/25/18 tolterodine 4 mg PO DAILY 05/25/18 benzonatate 200 mg PO TID #30 cap 08/03/18 - Discharge Disposition Discharge Disposition: PATIENT TO FOLLOW UP IN OUR OFFICE IN ONE WEEK.
== END 2018-09-12 13:00 | disposition home health service (06) | DRG 640 ==
LOC: MED/SURG 16:51 → ER 16:51 → MED/SURG 21:02
PROVIDERS: ADMIT Internal Medicine; ATTEND Internal Medicine
DX: R60.0 Localized edema; E86.0 Dehydration; Z95.0 Presence of cardiac pacemaker; I25.10 Atherosclerotic heart disease of native coronary artery without angina pectoris; B96.29 Other Escherichia coli [E. coli] as the cause of diseases classified elsewhere; R06.02 Shortness of breath; Z91.81 History of falling; K21.9 Gastro-esophageal reflux disease without esophagitis; G20 Parkinson's disease; E11.65 Type 2 diabetes mellitus with hyperglycemia; E03.8 Other specified hypothyroidism; N30.00 Acute cystitis without hematuria; M54.5 Low back pain; I50.43 Acute on chronic combined systolic (congestive) and diastolic (congestive) heart failure; G25.81 Restless legs syndrome; J44.9 Chronic obstructive pulmonary disease, unspecified; R62.7 Adult failure to thrive; E78.2 Mixed hyperlipidemia; K59.09 Other constipation; R53.1 Weakness; Z66 Do not resuscitate
CPT/HCPCS: 36415; 71010; 71045; 72131; 74000; 74018; 80053; 81001; 82550; 82553; 84484; 85025; 85378; 86140; 87086; 87088; 87186; 93005; 93306; 93971; 94640; 94760; 96365; 96367; 96374; 99231; 99283; 99284; A4216; A4222; Q0144; G0378; J0456; J0696; J1642; J1940; J2185; J2270; J2405; J7030; J7050; J7620; S0181

== ENCOUNTER 2018-11-18 07:04 | Observation (INO) ==
[2018-11-18] MEDS ORDERED: ASPIRIN PO ONE (07:29)
[2018-11-18] MEDS ORDERED: DUONEB 0.5 MG/3 MG NEB ONE (07:29)
[2018-11-18] MEDS ORDERED: LASIX IVP ONE ×2 (07:31→07:36)
--- NOTE | 2018-11-18 07:32 | DR.SOBA ---
HPI - Time Seen Time seen: 07:28 - Primary Care Physician Primary Care Physician: EDUAR - Complaints Chief Complaint Doctors Comments: Patient is complaining of having problems breathing for the past seven days getting worst the past three days with problems catching her breath feeling liike she was hyperventillating with left sided chest discomfort. She has a non productive cough but denies fever, chlls, nauea or vomiting. States she is a patient of Dr. Petit and she has taken all her medicines this morning. She had problems breathing and has home O2 at 2 1/2 liters normally but her spouse turned her to 3 liters because she was having problems breathing. She has a nebubilizer and inhaler at home but she did not use any recently. She has been wheezing but denies swelling of her legs or feet. States her heart skipes at times. 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 States she has atrial fib and her heart has been fluttering a lot more recently. Chief Complaint:: PT C/O SOB. PT STATES HAS BEEN GETTING SOB WHEN LYING DOWN. PT STATES SHE HAS BEEN HAVING THESE PROBLEMS FOR 3 DAYS. PT DENIES FEVER OR CHILLS. PT DOES STATE THAT SHE HAS A COUGH, BUT PT STATES SHE HAS HAD A COUGH FOR YEARS. - Reviewed Nurses Notes Reviewed: Yes - Source History Provided: Patient - Mode of Arrival Mode of Arrival: Wheelchair - Timing Onset of Chief Complaint: 11/15/18 - Duration Duration: Days (7) - Context Onset:: At Rest PE Risk Factors:: None History of:: COPD, CHF Currently on:: Inhaled Bronchodilators Prehospital Care:: O2, Furosemide - Modifying Factors Worsens:: Exertion, Lying Flat Improves:: Nothing - Associated Signs and Symptoms Associated Signs and Symptoms: Wheeze, Cough, Chest Pain - If Chest Pain Quality: Aching Location: Substernal - If Cough Cough: Nonproductive PMH - PMH Past Medical History: Yes Past Medical History: Coronary Artery Disease, Hypertension, Dyslipidemia, Diabetes, Hypothyroidism, Anemia, GERD, Arthritis, Kidney Stones, CHF Past Surgical History: Yes Surgical History: Abdominal Surgery, Appendectomy, Bowel Resection, Cholecystectomy, Hysterectomy, Ortho Surgery, Tonsillectomy - Family History History of Family Medical Conditions: Yes Family Medical History: Diabetes Mellitus, [place], Hypertension - Social History Does any household member use tobacco: No Alcohol Use: None Do you use any recreational Drugs:: No Lives With: Spouse Lives Where: Home - infectious screening In the last 2 months have you had wt loss of >10#?: NO Have you had fever, night sweats or hemotysis?: No Have you traveled outside the country in the last 6 months?: No Isolation: Standard ROS - Review of Systems Constitutional: No Symptoms Reported Eyes: No Symptoms Reported. negative: See HPI, Eye Pain, Blurred Vision, Tearing, Discharge, Photophobia, Diplopia, Other ENTM: No Symptoms Reported Respiratoy: No Symptoms Reported, Non-Productive Cough, Short of Breath, Wheezing. negative: See HPI, Productive Cough, Moist Cough, Dry Cough, Hacking Cough, Barking Cough, Brassy Cough, Orthopnea, Stridor, Hemoptysis, Other Cardiovascular: Chest Pain, Palpitations. negative: No Symptoms Reported, See HPI, Edema, Syncope, Cyanosis, Skin Mottling, Other Gastrointestinal/Abdominal: No Symptoms Reported. negative: See HPI, Abdominal Pain, Constipation, Diarrhea, Nausea, Vomiting, Food Intolerance, Other Genitourinary: No Symptoms Reported. negative: See HPI, Discharge, Dysuria, Frequency, Hematuria, Pain, Bleeding, Other Neurological: No Symptoms Reported Musculoskeletal: No Symptoms Reported Integumentary: No Symptoms Reported Hematologic/Lymphatic: No Symptoms Reported. negative: See HPI, Anemia, Blood Clots, Easy Bleeding, Easy Bruising, Swollen Glands, Lymphadenopathy, Other Endocrine: No Symptoms Reported Psychiatric: No Symptoms Reported. negative: See HPI, Anxiety, Depression, Hallucinations, Excessive crying, Suicidal, Other PE - General Limitations: No Limitations General Appearance: Alert, In Distress (mod), Obese - Head Head Exam: Normal Inspection, Atraumatic, Normocephalic - Eyes Eye exam: Normal Appearance, PERRL, EOMI. negative: Scleral Icterus, C onjunctival Injection, Nystagmus, Miosis, Mydrasis, Periorbital Swelling, Periorbital Tenderness, Other - ENT ENT Exam: Normal Exam, Normal Oropharynx, Normal External Ear Exam, Mucous Membranes Moist, TM's Normal Bilaterally - Neck Neck Exam: Normal Inspection, Full ROM, Trachea Midline - Chest Chest Inspection: Normal Inspection, Symmetric Chest Wall Rise. negative: Tenderness, Rash, Abscess, Other - Respiratory Respiratory Exam: Normal Lung Sounds Bilat, Prolonged Expiratory Phase. negative: Accessory Muscle Use, Chest Wall Tenderness, Respiratory Distress, Stridor, Other Respiratory Exam: Bilateral Wheezing, Bilateral Decreased Breath Sounds, Left Rales, Lower Rales - Cardiovascular Cardiovascular Exam: Regular Rate, Normal Rhythm, Normal Heart Sounds, Systolic Murmur - Abdominal Exam Abdominal Exam: Normal Inspection, Normal Bowel Sounds, Soft. negative: Distention, Tenderness, Guarding, Rebound, Rigidity, Dimnished Bowel Sounds, Hyperactive Bowel Sounds, Hypoactive Bowel Sounds, Organomegaly, Trauma, Incision, Ascites, Mass, Bruit, Pulsatile Mass, Hernia, Other Abdominal Tenderness: negative: RUQ, RLQ, LUQ, LLQ, Epigastrium, Suprapubic, Diffuse, Mild, Moderate, Severe, Other - Extremities Extremities Exam: Normal Inspection, Full ROM, Normal Capillary Refill. negative: Tenderness, Edema, Joint Swelling, Calf Tenderness, Other - Back Back Exam: Normal Inspection, Full ROM. negative: Tenderness, (R) CVA T enderness, (L) CVA Tenderness, Muscle Spasm, Paraspinal Tenderness, Vertebral Tenderness, Rashes, (R) Sciatic Notch Tenderness, (L) Sciatic Notch Tendern, (R) Straight Leg Raise, (L) Straight Leg Raise, Other - Neurologic Neurological Exam: Alert, Oriented X3, CN II-XII Intact, Reflexes Normal. negative: Normal Gait (gait not tested) - Psychiatric Psychiatric Exam: Normal Affect, Normal Mood. negative: Depressed, Agitated, Anxious, Flat Affect, Manic, Homicidal Ideation, Suicidal Ideation, Other - Skin Skin Exam: Warm, Dry, Intact, Normal Color. negative: Rash, Cyanosis, Di aphoresis, Erythema, Pallor, Mottled, Other - Vital Signs Vitals: Temperature 98.2 F Pulse Rate [Apical] 73 Pulse Rate 79 Respiratory Rate 17 Blood Pressure [Left Calf] 149/72 Blood Pressure [Right Arm] 131/70 Blood Pressure [Left Arm] 128/71 Blood Pressure 146/70 O2 Sat by Pulse Oximetry 96 Course - Reevaluation 1st: Improved - Consultation Called: 08:58 Call Returned: 08:58 (Dr. Riziv to admit) - Education/Counseling Education/Counseling: Patient, Family Educated On: Treatment, Diagnosis, Needs for Follow Up ROR - Labs Reviewed Laboratory Results Reviewed?: Yes (All labs and x-ray results reviewed and discussed with patient) Result Diagrams: 11/18/18 07:49 11/18/18 07:49 - XRAY XRAY Interpreted by: Radiologist (CXR: NO definite interval change or acute chest abnormality.. Pacemaker present.) - EKG Rate: 67 Healy: Normal Rhythm: Paced Block: None Hypertrophy: LVH ST: Old, Inf, Infarct - Labs Reviewed Laboratory: WBC 7.5 X10^3/uL (3.6-10.0) 11/18/18 07:49 RBC 3.91 X10^6/uL (3.5-5.4) 11/18/18 07:49 Hgb 12.9 g/dL (12.0-16.0) 11/18/18 07:49 Hct 38.4 % (36.0-47.0) 11/18/18 07:49 MCV 98.2 fL (80.0-100.0) 11/18/18 07:49 MCH 33.1 pg (27.0-34.0) 11/18/18 07:49 MCHC 33.7 g/dL (33.0-35.0) 11/18/18 07:49 RDW 14.4 % (11.6-16.5) 11/18/18 07:49 Plt Count 185 X10^3/uL (150.0-450.0) 11/18/18 07:49 MPV 8.9 fL (7.4-11.0) 11/18/18 07:49 Neut % (Auto) 58.3 % (42.0-75.0) 11/18/18 07:49 Lymph % (Auto) 28.4 % (21.0-51.0) 11/18/18 07:49 [place] % (Auto) 10.1 % (0.0-13.0) 11/18/18 07:49 Eos % (Auto) 2.6 % (0.9-2.9) 11/18/18 07:49 Baso % (Auto) 0.6 % (0.2-1.0) 11/18/18 07:49 Neut # (Auto) 4.3 x10^3/uL (2.2-4.8) 11/18/18 07:49 Lymph # (Auto) 2.1 X10^3/uL (1.3-2.9) 11/18/18 07:49 [place] # (Auto) 0.8 x10^3/uL (0.3-0.8) 11/18/18 07:49 Eos # (Auto) 0.2 x10^3/uL (0.0-0.2) 11/18/18 07:49 Baso # (Auto) 0.0 X10^3/uL (0.0-0.1) 11/18/18 07:49 Absolute Nucleated RBC 0.0 /100WBC 11/18/18 07:49 D-Dimer 202 ng/mL (0-400) 11/18/18 07:49 Sodium 142 mmol/L (136-145) 11/18/18 07:49 Corrected Sodium 145 mmol/L (136-145) 11/18/18 07:49 Potassium 4.2 mmol/L (3.5-5.1) 11/18/18 07:49 Chloride 105 mmol/L (98-107) 11/18/18 07:49 Carbon Dioxide 28.6 mmol/L (21-32) 11/18/18 07:49 BUN 26 mg/dL (7-18) H 11/18/18 07:49 Creatinine 2.13 mg/dL (0.55-1.02) H 11/18/18 07:49 Est GFR (MDRD) Af Amer 28 (>60) L 11/18/18 07:49 Est GFR (MDRD) Non-Af 23 (>60) L 11/18/18 07:49 Glucose 237 mg/dL (65-99) H 11/18/18 07:49 Calcium 9.4 mg/dL (8.5-10.1) 11/18/18 07:49 Corrected Calcium TNP 11/18/18 07:49 Magnesium 1.9 mg/dL (1.7-2.9) 11/18/18 07:49 Total Bilirubin 0.40 mg/dL (0.2-1.0) 11/18/18 07:49 AST 16 Units/L (15-37) 11/18/18 07:49 ALT 10 Units/L (12-78) L 11/18/18 07:49 Alkaline Phosphatase 57 Units/L (46-116) 11/18/18 07:49 Creatine Kinase 133 Units/L (26-192) 11/18/18 07:49 CK-MB (CK-2) 1.6 ng/mL (0-4.0) 11/18/18 07:49 CK/CKMB % Calc 1.2 % (<4) 11/18/18 07:49 Troponin I < 0.02 ng/mL (0-1.5) 11/18/18 07:49 B-Natriuretic Peptide 48.9 pg/mL (0-79) 11/18/18 07:49 Total Protein 6.4 g/dL (6.4-8.2) 11/18/18 07:49 Albumin 3.4 g/dL (3.4-5.0) 11/18/18 07:49 Globulin 3.0 g/dL (2.5-4.5) 11/18/18 07:49 Albumin/Globulin Ratio 1.1 Ratio (1.1-2.1) 11/18/18 07:49 Specimen Type Clean catch urine 11/18/18 08:16 Urine Color Yellow (YELLOW) 11/18/18 08:16 Urine Appearance Clear (CLEAR) 11/18/18 08:16 Urine pH 6.0 (5.0 - 8.0) 11/18/18 08:16 Ur Specific [place] 1.010 (1.000-1.030) 11/18/18 08:16 Urine Protein Negative (NEGATIVE) 11/18/18 08:16 Urine Glucose (UA) Negative (NEGATIVE) 11/18/18 08:16 Urine Ketones Negative (NEGATIVE) 11/18/18 08:16 Urine Occult Blood Negative (NEGATIVE) 11/18/18 08:16 Urine Nitrite Negative (NEGATIVE) 11/18/18 08:16 Urine Bilirubin Negative (NEGATIVE) 11/18/18 08:16 Urine Urobilinogen Normal (NORMAL) 11/18/18 08:16 Ur Leukocyte Esterase Negative (NEGATIVE) 11/18/18 08:16 - Diagnosis Discharge Problem: CHF (congestive heart failure), Diabetes mellitus, type II, Ventricular tachycardia, nonsustained, Chest pain, rule out acute myocardial infarction Dyspnea Qualifiers: Dyspnea type: shortness of breath Qualified Code(s): R06.02 - Shortness of breath; R06.00 - Dyspnea, unspecified; R06.01 - Orthopnea Chest pain Qualifiers: Chest pain type: unspecified Qualified Code(s): R07.9 - Chest pain, unspecified Chronic kidney disease (CKD) Qualifiers: Chronic kidney disease stage: stage 3 (moderate) Qualified Code(s): N18.3 - Chronic kidney disease, stage 3 (moderate) - Discharge Plan Disposition: 09 ADMITTED INPATIENT Condition: Stable - Follow ups/Referrals Follow ups/Referrals: Ramiro Petit [Primary Care Provider] - 3 days - Instructions
[2018-11-18] MEDS ORDERED: DUONEB 0.5 MG/3 MG ONE (07:34)
[2018-11-18] MEDS ORDERED: ASPIRIN ONE (07:37)
--- NOTE | 2018-11-18 07:48 | RAD ---
Examination: AP chest History: SOB Comparison 09/10/2018 Findings: The heart is not significantly enlarged. Pacemaker present. Right IJ injection port terminates in the SVC. The lungs and pleural spaces are essentially clear. Impression: No definite interval change or acute chest abnormality. Reported By:
[2018-11-18 08:05] LABS: BASOPHILS % (AUTO) 0.6 % (0.2-1.0); EOSINOPHILS # (AUTO) 0.2 x10^3/uL (0.0-0.2); EOSINOPHILS % (AUTO) 2.6 % (0.9-2.9); HEMATOCRIT 38.4 % (36.0-47.0); HEMOGLOBIN 12.9 g/dL (12.0-16.0); LYMPHOCYTES # (AUTO) 2.1 X10^3/uL (1.3-2.9); LYMPHOCYTES % (AUTO) 28.4 % (21.0-51.0); MEAN CORPUSCULAR HEMOGLOBIN 33.1 pg (27.0-34.0); MEAN CORPUSCULAR HGB CONC 33.7 g/dL (33.0-35.0); MEAN CORPUSCULAR VOLUME 98.2 fL (80.0-100.0); MEAN PLATELET VOLUME 8.9 fL (7.4-11.0); MONOCYTES # (AUTO) 0.8 x10^3/uL (0.3-0.8); MONOCYTES % (AUTO) 10.1 % (0.0-13.0); NEUTROPHILS # (AUTO) 4.3 x10^3/uL (2.2-4.8); NEUTROPHILS % (AUTO) 58.3 % (42.0-75.0); PLATELET COUNT 185 X10^3/uL (150.0-450.0); RED BLOOD COUNT 3.91 X10^6/uL (3.5-5.4); RED CELL DISTRIBUTION WIDTH 14.4 % (11.6-16.5); WHITE BLOOD COUNT 7.5 X10^3/uL (3.6-10.0)
[2018-11-18 08:16] LABS: BLOOD UREA NITROGEN 26 mg/dL (7-18); CALCIUM 9.4 mg/dL (8.5-10.1); CARBON DIOXIDE 28.6 mmol/L (21-32); CHLORIDE 105 mmol/L (98-107); COR NA(FOR HYPERGLY) 145 mmol/L (136-145); CREATININE 2.13 mg/dL (0.55-1.02); SODIUM 142 mmol/L (136-145); TROPONIN I < 0.02 ng/mL (0-1.5); eGFR NON BLACK RACES 23 (>60)
[2018-11-18 08:20] LABS: ALANINE AMINOTRANSFERASE 10 Units/L (12-78); ALBUMIN 3.4 g/dL (3.4-5.0); ALKALINE PHOSPHATASE 57 Units/L (46-116); ASPARTATE AMINO TRANSFERASE 16 Units/L (15-37); CKMB % 1.2 % (<4); CREATINE KINASE 133 Units/L (26-192); CREATINE KINASE MB 1.6 ng/mL (0-4.0); MAGNESIUM 1.9 mg/dL (1.7-2.9); TOTAL PROTEIN 6.4 g/dL (6.4-8.2)
[2018-11-18 08:30] LABS: B-TYPE NATRIURETIC PEPTIDE 48.9 pg/mL (0-79)
[2018-11-18 08:36] LABS: BILIRUBIN,URINE NEGATIVE (NEGATIVE); BLOOD/HEMOGLOBIN,URINE NEGATIVE (NEGATIVE); GLUCOSE, URINE NEGATIVE (NEGATIVE); KETONES,URINE NEGATIVE (NEGATIVE); LEUKOCYTE ESTERASE ,URINE NEGATIVE (NEGATIVE); NITRITES,URINE NEGATIVE (NEGATIVE); PROTEIN,URINE NEGATIVE (NEGATIVE); UROBILINOGEN,URINE NORMAL (NORMAL)
[2018-11-18 08:41] LABS: APPEARANCE,URINE CLEAR (CLEAR); COLOR,URINE YELLOW (YELLOW)
[2018-11-18 10:43] VITALS: BMI 28.1
[2018-11-18] MEDS: HumuLIN R SC PRN ×3 (10:51→21:34)
[2018-11-18] MEDS ORDERED: TYLENOL 325 MG TAB PO PRN (11:36)
[2018-11-18 14:47] LABS: CREATINE KINASE 116 Units/L (26-192); CREATINE KINASE MB 1.2 ng/mL (0-4.0); TROPONIN I < 0.02 ng/mL (0-1.5)
[2018-11-18] MEDS: NORCO 7.5/325 MG TAB PO PRN (18:21)
[2018-11-18 20:16] LABS: CREATINE KINASE 95 Units/L (26-192); CREATINE KINASE MB < 1.0 ng/mL (0-4.0); TROPONIN I < 0.02 ng/mL (0-1.5)
[2018-11-18 20:31] LABS: CKMB % 1.1 % (<4)
[2018-11-18] MEDS ORDERED: TESSALON PERLES PO PRN (22:26)
[2018-11-18] MEDS ORDERED: KLONOPIN TAB 0.5 MG PO PRN (22:28)
[2018-11-18] MEDS ORDERED: BENTYL CAP 10 MG PO PRN (22:31)
[2018-11-18] MEDS ORDERED: MIRALAX POWDER (1 DOSE 17 G) PO PRN (22:54)
[2018-11-18] MEDS ORDERED: DETROL LA 4 MG CAP EXT REL PO SCH (23:00)
[2018-11-18] MEDS ORDERED: ARICEPT TAB 10 MG PO SCH ×3 (23:00)
[2018-11-18] MEDS ORDERED: LIPITOR TAB 10 MG PO SCH (23:00)
[2018-11-18] MEDS ORDERED: FLONASE NASAL SPRAY ENOSTRIL SCH (23:00)
[2018-11-18] MEDS: COLACE CAP 100 MG PO SCH (23:15)
[2018-11-18] MEDS: COREG TAB 6.25 MG PO SCH (23:15)
[2018-11-18] MEDS: ELIQUIS PO SCH (23:16)
[2018-11-18] MEDS: LASIX PO SCH (23:17)
[2018-11-18] MEDS: NEURONTIN CAP 300 MG PO SCH (23:18)
[2018-11-18] MEDS: MICRO K EXTEN CAP 10 MEQ PO SCH (23:18)
[2018-11-18] MEDS: PEPCID TAB 20 MG PO SCH (23:19)
[2018-11-18] MEDS: SINEMET (PLAIN) 25/250 MG PO SCH (23:20)
[2018-11-18] MEDS: SENOKOT PO SCH (23:21)
[2018-11-18] MEDS: MIRAPEX TAB 0.25 MG PO SCH (23:29)
[2018-11-18] MEDS ORDERED: HALDOL PO PRN (23:39)
[2018-11-19 02:03] LABS: CKMB % 1.3 % (<4); CREATINE KINASE 82 Units/L (26-192); CREATINE KINASE MB 1.1 ng/mL (0-4.0); TROPONIN I < 0.02 ng/mL (0-1.5)
[2018-11-19] MEDS: SINEMET (PLAIN) 25/250 MG PO SCH (05:43)
[2018-11-19] MEDS: MIRAPEX TAB 0.25 MG PO SCH (05:43)
[2018-11-19] MEDS: HumuLIN R SC PRN (05:44)
[2018-11-19] MEDS: REQUIP PO SCH ×2 (06:00→06:59)
[2018-11-19 06:03] LABS: BASOPHILS % (AUTO) 0.7 % (0.2-1.0); EOSINOPHILS # (AUTO) 0.3 x10^3/uL (0.0-0.2); EOSINOPHILS % (AUTO) 3.9 % (0.9-2.9); HEMATOCRIT 38.5 % (36.0-47.0); HEMOGLOBIN 12.7 g/dL (12.0-16.0); LYMPHOCYTES # (AUTO) 2.4 X10^3/uL (1.3-2.9); LYMPHOCYTES % (AUTO) 35.4 % (21.0-51.0); MEAN CORPUSCULAR HEMOGLOBIN 32.6 pg (27.0-34.0); MEAN CORPUSCULAR VOLUME 98.7 fL (80.0-100.0); MEAN PLATELET VOLUME 8.4 fL (7.4-11.0); MONOCYTES # (AUTO) 0.6 x10^3/uL (0.3-0.8); MONOCYTES % (AUTO) 8.5 % (0.0-13.0); NEUTROPHILS # (AUTO) 3.5 x10^3/uL (2.2-4.8); NEUTROPHILS % (AUTO) 51.5 % (42.0-75.0); PLATELET COUNT 178 X10^3/uL (150.0-450.0); RED CELL DISTRIBUTION WIDTH 14.5 % (11.6-16.5); WHITE BLOOD COUNT 6.7 X10^3/uL (3.6-10.0)
[2018-11-19 06:15] LABS: ALBUMIN 3.1 g/dL (3.4-5.0); CALCIUM 8.6 mg/dL (8.5-10.1); CARBON DIOXIDE 29.7 mmol/L (21-32); CHOL/HDL RATIO 3.1 (0.0-5.0); COR CA(FOR HYPOALB) 9.3 mg/dL (8.5-10.1); CREATININE 2.07 mg/dL (0.55-1.02); TOTAL PROTEIN 6.2 g/dL (6.4-8.2)
[2018-11-19] MEDS ORDERED: PROTONIX TAB 40 MG PO SCH (06:30)
[2018-11-19] MEDS ORDERED: AMARYL TAB 4 MG PO SCH (07:00)
[2018-11-19] MEDS ORDERED: SYNTHROID 100 mcg TAB PO SCH (07:00)
[2018-11-19] MEDS ORDERED: CELEXA PO SCH (09:00)
[2018-11-19] MEDS ORDERED: ZESTRIL TAB 10 MG PO SCH (09:00)
[2018-11-19] MEDS ORDERED: VITAMIN D3 PO SCH (09:00)
[2018-11-19] MEDS: NEURONTIN CAP 300 MG PO SCH (09:18)
[2018-11-19] MEDS: COLACE CAP 100 MG PO SCH (09:18)
[2018-11-19] MEDS: PEPCID TAB 20 MG PO SCH (09:18)
[2018-11-19] MEDS: ELIQUIS PO SCH (09:20)
[2018-11-19] MEDS: COREG TAB 6.25 MG PO SCH (09:20)
[2018-11-19] MEDS: MICRO K EXTEN CAP 10 MEQ PO SCH (09:20)
[2018-11-19] MEDS: SENOKOT PO SCH (09:21)
[2018-11-19] MEDS: LASIX PO SCH (09:22)
[2018-11-19 10:12] VITALS: BP 145/72
[2018-11-19] MEDS: NORCO 7.5/325 MG TAB PO PRN (10:31)
[2018-11-19] MEDS ORDERED: PATIENT'S HOME MEDICATION PO SCH (21:00)
--- NOTE | 2018-11-20 06:17 | RAD ---
HISTORY: Shortness of breath Study: Chest AP portable Comparison: 11/18/2018 Findings: There is a pacemaker present on the left obscuring a portion of the left mid lung. There is a right-sided port present. The heart is minimally enlarged. The aorta is calcified and ectatic. The lung cordero are clear. The bony thorax is unremarkable. IMPRESSION: Minimal cardiomegaly without congestive heart failure Lungs clear Reported By:
[2018-11-21] MEDS ORDERED: CATAPRES-TTS-1 TD SCH (09:00)
[2018-11-21] MEDS ORDERED: VITAMIN B-12 INJ IM SCH (09:00)
--- NOTE | 2018-12-07 09:01 | DR.CARTERS ---
Short Stay Summary - Admission Date Date of Admission: 11/18/18 - Discharge Date Discharge Date: 11/19/18 - Admission Diagnoses (1) Dyspnea Status: Acute - Hospital Course Hospital Course: IS A 83 YEAR OLD PATIENT OF OURS WHO PRESENTED TO THE ER WITH COMPLAINTS OF SHORTNESS OF BREATH AT REST AND ON EXERTION. SHE REPORTS THAT SYMPTOMS STARTED THREE DAYS AGO AND HAVE PERSISTENTLY GOTTEN WORSE. SHE REPORTS A NON-PRODUCTIVE COUGH, BUT DENIES FEVER OR CHILLS. ON ARRIVAL, VITALS WERE 98.9-96-31-90RA-146/70. LABS WERE OBTAINED. ABNORMAL LAB VALUES INCLUDE THE FOLLOWING: BUN 26, CREATININE 2.13, GLUCOSE 237, ALT 10. CARDIAC ENZYMES WITHIN NORMAL LIMITS. CHEST XRAY OBTAINED AND REVEALED: NO DEFINITE INTERVAL CHANGE OR ACUTE CHEST ABNORMALITY. EKG OBTAINED AND REVEALED ATRIAL PACED RHYTHM WITH HR 67. SHE WAS GIVEN ASPIRIN 325MG PO X 1, DUONEB X 1, AND LASIX 40MG IV X 1 IN THE ER. SHE WAS ADMITTED FOR FURTHER EVALUATION AND TREATMENT OF DYSPNEA. HER HOME MEDICATIONS WERE RESUMED. WE PLANNED TO FOLLOW UP WITH AM LABS AND CONTINUE TO MONITOR. ON THE MORNING FOLLOWING ADMISSION, PATIENT IS ALERT AND ORIENTED, LYING IN BED ON MORNING ROUNDS. SHE REPORTS THAT SHORTNESS OF BREATH HAS IMPROVED AND THAT SHE IS FEELING WELL. ON EXAMINATION, HEART IS REGULAR IN RATE AND RHYTHM. BILATERAL LUNGS ARE NOTED WITH DIMINISHED LUNG SOUNDS THROUGHOUT. ABDOMEN IS ROUND, SOFT, AND NON-TENDER WITH NORMAL BOWEL SOUNDS NOTED IN ALL QUADRANTS. HER VITALS THIS MORNING ARE 97.4-60-18-94%-113/69. LABS WERE OBTAINED. ABNORMAL LAB VALUES INCLUDE THE FOLLOWING: BUN 29, CREATININE 2.07, GLUCOSE 150, ALT 9, TOTAL PROTEIN 6.2, ALBUMIN 3.1, TRIGLYCERIDES 233. CARDIAC ENZYMES WITHIN NORMAL LIMITS. NO CHANGES NOTED ON EKGS. TODAYS CHEST XRAY REVEALED: Minimal cardiomegaly without congestive heart failure. Lungs clear. WE PLANNED FOR DISCHARGE. INSTRUCTIONS FOR MEDICATIONS AND FOLLOW UP WERE DISCUSSED WITH PATIENT AND FAMILY. THEY VERBALIZED UNDERSTANDING. SHE WAS DISCHARGED HOME WITH FAMILY IN STABLE CONDITION. SHE WAS INSTRUCTED TO CONTINUE WITH HOME MEDICATIONS AND TO FOLLOW UP IN THE OFFICE NEXT WEEK. - Discharge Medications Discharge Medications: Home Medication List benzonatate 200 mg PO TID PRN 11/18/18 [History] carbidopa-levodopa 1 tab PO TID 11/18/18 [History] clonazepam 0.5 mg PO BID PRN 11/18/18 [History] clonidine 1 patch TRANSDERMAL QWEEK 11/18/18 [History] cyanocobalamin (vitamin B-12) 1,000 mcg IM QWEEK 11/18/18 [History] dicyclomine 10 mg PO QID PRN 11/18/18 [History] fexofenadine-pseudoephedrine [Kristen-D 12 Hour] 1 tab PO HS 11/18/18 [History] haloperidol 5 mg PO PRN PRN 11/18/18 [History] pantoprazole [Protonix] 40 mg PO BID 11/18/18 [History] polyethylene glycol 3350 [Miralax] 17 g PO HS PRN 11/18/18 [History] tramadol 200 mg PO HS 11/18/18 [History] Prescriptions: - Discharge Plan Disposition: HOME, SELF-CARE Condition: Stable - Follow up/Referrals Follow up/Referrals: Ramiro Petit [Primary Care Provider] - 3 days - Instructions Instructions: Shortness of Breath, Adult, [id number], Heart Failure, [id number], Type 2 Diabetes Mellitus, Diagnosis, Adult, [id number] Additional Instructions: DIET TOLERATED. ACTIVITY TOLERATED. Forms: Patient Portal
== END 2018-11-19 10:50 | disposition home or self-care (01) ==
LOC: ER 07:05 → ICU 07:05
PROVIDERS: ADMIT Internal Medicine; ATTEND Internal Medicine
DX: Z79.01 Long term (current) use of anticoagulants; R06.02 Shortness of breath; I50.9 Heart failure, unspecified; I12.9 Hypertensive chronic kidney disease with stage 1 through stage 4 chronic kidney disease, or unspecified chronic kidney disease; R94.31 Abnormal electrocardiogram [ECG] [EKG]; Z99.81 Dependence on supplemental oxygen; E78.2 Mixed hyperlipidemia; K21.9 Gastro-esophageal reflux disease without esophagitis; N18.3 Chronic kidney disease, stage 3 (moderate); R94.4 Abnormal results of kidney function studies; E03.8 Other specified hypothyroidism; R07.89 Other chest pain; I25.10 Atherosclerotic heart disease of native coronary artery without angina pectoris; J44.9 Chronic obstructive pulmonary disease, unspecified; E11.65 Type 2 diabetes mellitus with hyperglycemia; Z79.899 Other long term (current) drug therapy; I48.91 Unspecified atrial fibrillation
CPT/HCPCS: 36415; 71010; 71045; 80053; 80061; 81003; 82550; 82553; 83735; 83880; 84484; 85025; 85378; 85610; 85730; 93005; 94640; 96365; 96372; 96374; 99284; A4216; G0378; J1642; J1815; J1940; J3490; J7620

== ENCOUNTER 2019-03-02 10:01 | Inpatient (IN) ==
[2019-03-02] MEDS ORDERED: PROVENTIL NEB TX 0.083% 2.5MG/ 3ML NEB PRN (14:03)
[2019-03-02 14:35] LABS: BASOPHILS # (AUTO) 0.1 X10^3/uL (0.0-0.1); BASOPHILS % (AUTO) 0.7 % (0.2-1.0); EOSINOPHILS # (AUTO) 0.1 x10^3/uL (0.0-0.2); EOSINOPHILS % (AUTO) 0.7 % (0.9-2.9); HEMOGLOBIN 12.3 g/dL (12.0-16.0); LYMPHOCYTES # (AUTO) 2.1 X10^3/uL (1.3-2.9); LYMPHOCYTES % (AUTO) 25.3 % (21.0-51.0); MEAN CORPUSCULAR HEMOGLOBIN 34.2 pg (27.0-34.0); MEAN CORPUSCULAR HGB CONC 33.1 g/dL (33.0-35.0); MEAN CORPUSCULAR VOLUME 103.4 fL (80.0-100.0); MEAN PLATELET VOLUME 7.5 fL (7.4-11.0); MONOCYTES # (AUTO) 0.6 x10^3/uL (0.3-0.8); MONOCYTES % (AUTO) 7.2 % (0.0-13.0); NEUTROPHILS # (AUTO) 5.4 x10^3/uL (2.2-4.8); NEUTROPHILS % (AUTO) 66.1 % (42.0-75.0); PLATELET COUNT 213 X10^3/uL (150.0-450.0); RED BLOOD COUNT 3.58 X10^6/uL (3.5-5.4); WHITE BLOOD COUNT 8.1 X10^3/uL (3.6-10.0)
[2019-03-02 14:44] LABS: ALANINE AMINOTRANSFERASE 6 Units/L (12-78); ALBUMIN 3.5 g/dL (3.4-5.0); ALKALINE PHOSPHATASE 55 Units/L (46-116); ASPARTATE AMINO TRANSFERASE 18 Units/L (15-37); BLOOD UREA NITROGEN 22 mg/dL (7-18); CALCIUM 9.2 mg/dL (8.5-10.1); CARBON DIOXIDE 28.7 mmol/L (21-32); CHLORIDE 107 mmol/L (98-107); COR NA(FOR HYPERGLY) 144 mmol/L (136-145); CREATININE 2.11 mg/dL (0.55-1.02); SODIUM 142 mmol/L (136-145); TOTAL PROTEIN 6.9 g/dL (6.4-8.2); eGFR NON BLACK RACES 24 (>60)
[2019-03-02] MEDS: PEPCID 20 MG IV PREMIX* 20 MG/50 ML BAG IV SCH ×2 (14:46→21:59)
[2019-03-02] MEDS: PROTONIX INJ 40 MG VIAL IVP SCH (14:46)
[2019-03-02] MEDS: NS 1000 ML 1,000 ML IV SCH (14:46)
[2019-03-02] MEDS: CIPRO IV 400 MG PREMIX* 400 MG/200 ML IV.SOLN. IV SCH ×2 (14:47→21:58)
[2019-03-02 15:48] VITALS: BMI 27.9
[2019-03-02] MEDS ORDERED: NORCO 7.5/325 MG TAB ONE (18:10)
[2019-03-02] MEDS ORDERED: ZOFRAN INJ 4 MG VIAL IVP PRN (18:14)
[2019-03-02] MEDS ORDERED: MIRALAX POWDER (1 DOSE 17 G) PO PRN (18:15)
[2019-03-02] MEDS: NORCO 7.5/325 MG TAB PO PRN (18:16)
[2019-03-02] MEDS ORDERED: ZESTRIL TAB 20 MG ONE (19:49)
--- NOTE | 2019-03-02 21:07 | CT ---
CT abdomen and pelvis without contrast Indication: Abdominal pain Comparison: 01/21/2019 Technique: Multiple axial images of the abdomen and pelvis were obtained from the lung bases to the pubic symphysis without the administration of IV contrast. Coronal and sagittal reformatted images were also provided. Findings: Overall sensitivity in detection of solid organ injury, mass or inflammatory change along with vascular injury or mesenteric hematoma is severely limited given lack of IV contrast administration. The lung bases demonstrate no new airspace disease with mild subpleural nodularity within the right and left lower lobe. Heart size is enlarged with moderate coronary artery atherosclerotic disease. No pericardial effusion. Given limitations of a noncontrast examination no focal hepatic lesion is identified. Previous cholecystectomy is noted. Bile ducts are normal in caliber. The spleen is unremarkable. The pancreas and adrenal glands are normal. Neither kidney demonstrates evidence of nephrolithiasis, hydronephrosis or mass. There is cortical atrophy within both kidneys. There is also likely a small cyst within the lower pole the right kidney. Upper GI tract demonstrates no evidence of mass or obstruction. Urinary bladder is normal. No pelvic or adnexal mass. Numerous pelvic phleboliths are present. There is a right posterior lateral herniation of fat through the pelvic wall seen best on axial image 84. The rectum is unremarkable. Distal colonic diverticula are noted without evidence of acute diverticulitis. However, there is segmental moderate bowel wall thickening involving the transverse colon seen best on axial image 49. The proximal colon is normal. Fat containing paraumbilical hernia is noted. Abdominal aorta demonstrates moderate calcified atherosclerotic disease without aneurysmal dilatation. Review of bone windows demonstrates no acute osseous abnormality. Stable appearance of left total hip arthroplasty. Impression: 1.Interval development of segmental moderate bowel wall thickening involving the transverse colon is most consistent with acute colitis given the relative acute presentation; however, correlation with either follow-up CT examination or colonoscopy in 8-12 weeks is recommended to ensure resolution and exclude an underlying malignancy/infiltrating neoplasm. 2. Multiple additional chronic, incidental findings as described above. Reported By:
[2019-03-02] MEDS: SENOKOT PO SCH (21:52)
[2019-03-02] MEDS: ZESTRIL TAB 20 MG PO SCH (21:52)
[2019-03-02] MEDS: ELIQUIS PO SCH (21:52)
[2019-03-02] MEDS: LOPRESSOR TAB 25 MG PO SCH (21:52)
[2019-03-02] MEDS: ARICEPT TAB 10 MG PO SCH (21:53)
[2019-03-02] MEDS: MIRAPEX TAB 0.25 MG PO SCH (21:53)
[2019-03-02] MEDS: DETROL LA 4 MG CAP EXT REL PO SCH (21:53)
[2019-03-02] MEDS: SINEMET (PLAIN) 25/250 MG PO SCH (21:53)
[2019-03-02] MEDS: NEURONTIN CAP 300 MG PO SCH (21:53)
[2019-03-02] MEDS: LIPITOR TAB 10 MG PO SCH (22:00)
[2019-03-03] MEDS: NORCO 7.5/325 MG TAB PO PRN (00:01)
[2019-03-03 03:59] LABS: BILIRUBIN,URINE NEGATIVE (NEGATIVE); BLOOD/HEMOGLOBIN,URINE NEGATIVE (NEGATIVE); GLUCOSE, URINE NEGATIVE (NEGATIVE); KETONES,URINE 1+ (NEGATIVE); LEUKOCYTE ESTERASE ,URINE 1+ (NEGATIVE); NITRITES,URINE POSITIVE (NEGATIVE); PROTEIN,URINE 1+ (NEGATIVE); UROBILINOGEN,URINE NORMAL (NORMAL)
[2019-03-03 04:04] LABS: APPEARANCE,URINE CLEAR (CLEAR); BACTERIA,URINE 3+ /HPF (NEGATIVE); COLOR,URINE YELLOW (YELLOW); RBC,URINE NONE SEEN /HPF (NONE SEEN); SQUAMOUS EPITHELIAL CELL,UR MODERATE /HPF (NEGATIVE); YEAST,URINE FEW /HPF (NEGATIVE)
[2019-03-03 05:25] LABS: HEMATOCRIT 36.7 % (36.0-47.0); HEMOGLOBIN 12.1 g/dL (12.0-16.0); MEAN CORPUSCULAR VOLUME 102.8 fL (80.0-100.0); RED BLOOD COUNT 3.57 X10^6/uL (3.5-5.4); RED CELL DISTRIBUTION WIDTH 15.8 % (11.6-16.5)
[2019-03-03 05:26] LABS: BASOPHILS % (AUTO) 0.4 % (0.2-1.0); EOSINOPHILS # (AUTO) 0.1 x10^3/uL (0.0-0.2); LYMPHOCYTES # (AUTO) 2.4 X10^3/uL (1.3-2.9); LYMPHOCYTES % (AUTO) 29.6 % (21.0-51.0); MONOCYTES # (AUTO) 0.6 x10^3/uL (0.3-0.8); MONOCYTES % (AUTO) 7.2 % (0.0-13.0); NEUTROPHILS % (AUTO) 61.8 % (42.0-75.0); PLATELET COUNT 214 X10^3/uL (150.0-450.0)
[2019-03-03 05:40] LABS: ALANINE AMINOTRANSFERASE < 6 Units/L (12-78); ALBUMIN 3.2 g/dL (3.4-5.0); ALKALINE PHOSPHATASE 48 Units/L (46-116); ASPARTATE AMINO TRANSFERASE 17 Units/L (15-37); BLOOD UREA NITROGEN 19 mg/dL (7-18); CALCIUM 8.6 mg/dL (8.5-10.1); CARBON DIOXIDE 27.3 mmol/L (21-32); CHLORIDE 104 mmol/L (98-107); COR CA(FOR HYPOALB) 9.2 mg/dL (8.5-10.1); COR NA(FOR HYPERGLY) 140 mmol/L (136-145); CREATININE 1.89 mg/dL (0.55-1.02); SODIUM 140 mmol/L (136-145); TOTAL PROTEIN 6.2 g/dL (6.4-8.2); eGFR NON BLACK RACES 27 (>60)
[2019-03-03] MEDS: SINEMET (PLAIN) 25/250 MG PO SCH ×3 (06:16→21:21)
[2019-03-03] MEDS: MIRAPEX TAB 0.25 MG PO SCH (06:16)
[2019-03-03] MEDS: NEURONTIN CAP 300 MG PO SCH ×3 (06:16→21:21)
[2019-03-03] MEDS: SYNTHROID 100 mcg TAB PO SCH ×2 (06:16→16:13)
[2019-03-03] MEDS ORDERED: LASIX PO SCH (07:00)
[2019-03-03] MEDS: NS 1000 ML 1,000 ML IV SCH ×3 (07:20→18:14)
[2019-03-03] MEDS ORDERED: ZESTRIL TAB 20 MG ONE (08:27)
[2019-03-03] MEDS: ULTRAM PO SCH (08:47)
[2019-03-03] MEDS: VITAMIN D3 PO SCH (08:56)
[2019-03-03] MEDS: SENOKOT PO SCH ×2 (08:56→20:50)
[2019-03-03] MEDS: DETROL LA 4 MG CAP EXT REL PO SCH (08:56)
[2019-03-03] MEDS: LOPRESSOR TAB 25 MG PO SCH ×2 (08:57→20:50)
[2019-03-03] MEDS: ZESTRIL TAB 20 MG PO SCH ×2 (08:57→20:52)
[2019-03-03] MEDS: LIPITOR TAB 10 MG PO SCH (08:58)
[2019-03-03] MEDS: CELEXA PO SCH (08:58)
[2019-03-03] MEDS: ELIQUIS PO SCH ×2 (08:58→20:49)
[2019-03-03] MEDS: PROTONIX INJ 40 MG VIAL IVP SCH (08:59)
[2019-03-03] MEDS: PEPCID 20 MG IV PREMIX* 20 MG/50 ML BAG IV SCH (08:59)
[2019-03-03] MEDS: NORVASC TAB 5 MG PO SCH (08:59)
[2019-03-03] MEDS: CIPRO IV 400 MG PREMIX* 400 MG/200 ML IV.SOLN. IV SCH ×2 (09:55→20:49)
[2019-03-03] MEDS: K-DUR TAB 20 MEQ PO SCH (10:07)
[2019-03-03] MEDS ORDERED: ZOFRAN TAB 4 MG PO PRN (11:19)
[2019-03-03] MEDS ORDERED: NORCO 7.5/325 MG TAB PO PRN (11:19)
[2019-03-03] MEDS ORDERED: PATIENT'S HOME MEDICATION (Sennosides-Docusate Sodium [Senna-S] 2 TAB) PO SCH (11:30)
[2019-03-03] MEDS ORDERED: PATIENT'S HOME MEDICATION (Cholecalciferol (Vitamin D3) [Vitamin D3] 2,000 UNIT) PO SCH (11:30)
[2019-03-03] MEDS ORDERED: ELIQUIS PO SCH (11:30)
[2019-03-03] MEDS ORDERED: TRAMADOL 200 MG PO SCH (11:30)
[2019-03-03 11:39] LABS: IRON 75 ug/dL (50-175)
[2019-03-03] MEDS ORDERED: LOPRESSOR TAB 25 MG PO SCH (12:00)
[2019-03-03] MEDS ORDERED: ZESTRIL TAB 20 MG PO SCH (12:00)
[2019-03-03] MEDS ORDERED: NORVASC TAB 5 MG PO SCH (12:00)
[2019-03-03] MEDS ORDERED: PROTONIX TAB 40 MG PO SCH (12:00)
[2019-03-03] MEDS ORDERED: CATAPRES-TTS-2 TD SCH (12:00)
[2019-03-03] MEDS ORDERED: CELEXA PO SCH (12:00)
[2019-03-03] MEDS ORDERED: SYNTHROID 100 mcg TAB PO SCH (12:00)
[2019-03-03] MEDS ORDERED: K-DUR TAB 20 MEQ PO SCH (12:00)
[2019-03-03] MEDS ORDERED: PEPCID TAB 20 MG PO SCH (12:00)
[2019-03-03] MEDS: AMARYL TAB 4 MG PO SCH ×2 (12:10→20:49)
[2019-03-03] MEDS ORDERED: NEURONTIN CAP 300 MG PO SCH (14:00)
[2019-03-03] MEDS: MIRAPEX TAB 1 MG PO SCH ×2 (14:07→21:20)
[2019-03-03] MEDS: ARICEPT TAB 10 MG PO SCH (20:49)
[2019-03-03] MEDS: LASIX PO SCH (20:50)
[2019-03-03] MEDS ORDERED: ARICEPT TAB 10 MG PO SCH (21:00)
[2019-03-03] MEDS ORDERED: LIPITOR TAB 10 MG PO SCH (21:00)
[2019-03-04 05:41] LABS: BASOPHILS % (AUTO) 0.4 % (0.2-1.0); EOSINOPHILS % (AUTO) 0.8 % (0.9-2.9); HEMATOCRIT 34.1 % (36.0-47.0); HEMOGLOBIN 11.4 g/dL (12.0-16.0); LYMPHOCYTES # (AUTO) 1.6 X10^3/uL (1.3-2.9); LYMPHOCYTES % (AUTO) 26.3 % (21.0-51.0); MEAN CORPUSCULAR HEMOGLOBIN 34.3 pg (27.0-34.0); MEAN CORPUSCULAR HGB CONC 33.3 g/dL (33.0-35.0); MEAN CORPUSCULAR VOLUME 103.1 fL (80.0-100.0); MEAN PLATELET VOLUME 7.6 fL (7.4-11.0); MONOCYTES # (AUTO) 0.5 x10^3/uL (0.3-0.8); MONOCYTES % (AUTO) 7.5 % (0.0-13.0); NEUTROPHILS # (AUTO) 4.1 x10^3/uL (2.2-4.8); PLATELET COUNT 194 X10^3/uL (150.0-450.0); RED BLOOD COUNT 3.31 X10^6/uL (3.5-5.4); RED CELL DISTRIBUTION WIDTH 15.8 % (11.6-16.5); WHITE BLOOD COUNT 6.2 X10^3/uL (3.6-10.0)
[2019-03-04] MEDS: SINEMET (PLAIN) 25/250 MG PO SCH ×3 (05:47→21:32)
[2019-03-04] MEDS: NEURONTIN CAP 300 MG PO SCH ×3 (05:47→21:32)
[2019-03-04] MEDS: MIRAPEX TAB 1 MG PO SCH ×3 (05:47→21:31)
[2019-03-04 05:56] LABS: ALANINE AMINOTRANSFERASE < 6 Units/L (12-78); ALKALINE PHOSPHATASE 44 Units/L (46-116); ASPARTATE AMINO TRANSFERASE 16 Units/L (15-37); BLOOD UREA NITROGEN 14 mg/dL (7-18); CALCIUM 8.5 mg/dL (8.5-10.1); CARBON DIOXIDE 25.6 mmol/L (21-32); CHLORIDE 104 mmol/L (98-107); COR CA(FOR HYPOALB) 9.3 mg/dL (8.5-10.1); CREATININE 1.69 mg/dL (0.55-1.02); SODIUM 139 mmol/L (136-145); TOTAL PROTEIN 5.8 g/dL (6.4-8.2); eGFR NON BLACK RACES 31 (>60)
[2019-03-04] MEDS ORDERED: ZESTRIL TAB 20 MG ONE ×2 (08:14→19:12)
[2019-03-04] MEDS: LOPRESSOR TAB 25 MG PO SCH ×2 (09:18→20:07)
[2019-03-04] MEDS: AMARYL TAB 4 MG PO SCH ×2 (09:18→20:07)
[2019-03-04] MEDS: LASIX PO SCH ×2 (09:18→20:08)
[2019-03-04] MEDS: NORVASC TAB 5 MG PO SCH (09:18)
[2019-03-04] MEDS: SENOKOT PO SCH ×2 (09:18→20:10)
[2019-03-04] MEDS: CELEXA PO SCH (09:19)
[2019-03-04] MEDS: ULTRAM PO SCH (09:19)
[2019-03-04] MEDS: ZESTRIL TAB 20 MG PO SCH ×2 (09:19→20:08)
[2019-03-04] MEDS: VITAMIN D3 PO SCH (09:19)
[2019-03-04] MEDS: DETROL LA 4 MG CAP EXT REL PO SCH (09:19)
[2019-03-04] MEDS: K-DUR TAB 20 MEQ PO SCH (09:21)
[2019-03-04] MEDS: NS 1000 ML 1,000 ML IV SCH (09:21)
[2019-03-04] MEDS: ELIQUIS PO SCH ×2 (09:21→20:07)
[2019-03-04] MEDS: CIPRO IV 400 MG PREMIX* 400 MG/200 ML IV.SOLN. IV SCH ×2 (09:21→20:09)
[2019-03-04] MEDS: PROTONIX INJ 40 MG VIAL IVP SCH (09:22)
[2019-03-04] MEDS: PEPCID 20 MG IV PREMIX* 20 MG/50 ML BAG IV SCH (09:22)
[2019-03-04] MEDS: NORCO 7.5/325 MG TAB PO PRN ×2 (11:45→17:40)
[2019-03-04] MEDS: SYNTHROID 100 mcg TAB PO SCH (17:26)
[2019-03-04] MEDS: LIPITOR TAB 10 MG PO SCH (20:08)
[2019-03-04] MEDS: ARICEPT TAB 10 MG PO SCH (20:09)
[2019-03-05] MEDS: NS 1000 ML 1,000 ML IV SCH ×4 (00:43→20:53)
[2019-03-05] MEDS: NORCO 7.5/325 MG TAB PO PRN ×2 (01:12→15:46)
[2019-03-05 04:58] LABS: BASOPHILS % (AUTO) 0.4 % (0.2-1.0); EOSINOPHILS # (AUTO) 0.1 x10^3/uL (0.0-0.2); EOSINOPHILS % (AUTO) 0.8 % (0.9-2.9); HEMATOCRIT 36.7 % (36.0-47.0); HEMOGLOBIN 12.1 g/dL (12.0-16.0); LYMPHOCYTES # (AUTO) 1.8 X10^3/uL (1.3-2.9); MEAN CORPUSCULAR HEMOGLOBIN 34.3 pg (27.0-34.0); MEAN PLATELET VOLUME 7.7 fL (7.4-11.0); MONOCYTES # (AUTO) 0.5 x10^3/uL (0.3-0.8); NEUTROPHILS # (AUTO) 4.4 x10^3/uL (2.2-4.8); NEUTROPHILS % (AUTO) 64.8 % (42.0-75.0); PLATELET COUNT 211 X10^3/uL (150.0-450.0); RED BLOOD COUNT 3.53 X10^6/uL (3.5-5.4); RED CELL DISTRIBUTION WIDTH 15.5 % (11.6-16.5); WHITE BLOOD COUNT 6.9 X10^3/uL (3.6-10.0)
[2019-03-05 05:11] LABS: ALANINE AMINOTRANSFERASE 6 Units/L (12-78); ALBUMIN 3.1 g/dL (3.4-5.0); ALKALINE PHOSPHATASE 42 Units/L (46-116); ASPARTATE AMINO TRANSFERASE 17 Units/L (15-37); BLOOD UREA NITROGEN 14 mg/dL (7-18); CALCIUM 8.6 mg/dL (8.5-10.1); CARBON DIOXIDE 25.5 mmol/L (21-32); CHLORIDE 105 mmol/L (98-107); COR CA(FOR HYPOALB) 9.3 mg/dL (8.5-10.1); CREATININE 1.67 mg/dL (0.55-1.02); SODIUM 139 mmol/L (136-145); eGFR NON BLACK RACES 31 (>60)
[2019-03-05] MEDS: MIRAPEX TAB 1 MG PO SCH ×3 (05:15→21:24)
[2019-03-05] MEDS: NEURONTIN CAP 300 MG PO SCH ×3 (05:16→21:25)
[2019-03-05] MEDS: SINEMET (PLAIN) 25/250 MG PO SCH ×4 (05:16→21:25)
[2019-03-05] MEDS ORDERED: ZESTRIL TAB 20 MG ONE ×2 (08:29→20:03)
[2019-03-05] MEDS: CIPRO IV 400 MG PREMIX* 400 MG/200 ML IV.SOLN. IV SCH ×2 (08:33→20:34)
[2019-03-05] MEDS: PEPCID 20 MG IV PREMIX* 20 MG/50 ML BAG IV SCH (08:34)
[2019-03-05] MEDS: PROTONIX INJ 40 MG VIAL IVP SCH (08:36)
[2019-03-05] MEDS: K-DUR TAB 20 MEQ PO SCH (08:38)
[2019-03-05] MEDS: LOPRESSOR TAB 25 MG PO SCH ×2 (08:38→20:36)
[2019-03-05] MEDS: DETROL LA 4 MG CAP EXT REL PO SCH (08:38)
[2019-03-05] MEDS: NORVASC TAB 5 MG PO SCH (08:39)
[2019-03-05] MEDS: ZESTRIL TAB 20 MG PO SCH ×2 (08:39→20:37)
[2019-03-05] MEDS: ULTRAM PO SCH (08:39)
[2019-03-05] MEDS: SENOKOT PO SCH ×2 (08:39→20:36)
[2019-03-05] MEDS: ELIQUIS PO SCH ×2 (08:40→20:35)
[2019-03-05] MEDS: LASIX PO SCH ×2 (08:40→20:36)
[2019-03-05] MEDS: CELEXA PO SCH (08:41)
[2019-03-05] MEDS: AMARYL TAB 4 MG PO SCH ×2 (08:41→20:35)
[2019-03-05] MEDS: VITAMIN D3 PO SCH (08:42)
[2019-03-05] MEDS ORDERED: INVANZ INJ 1 GM VIAL 1 GM in NS 100 ML IV + SPIKE MINIBAG* 100 ML IV SCH ×2 (13:00→22:00)
[2019-03-05] MEDS: SYNTHROID 100 mcg TAB PO SCH (17:57)
[2019-03-05] MEDS: LIPITOR TAB 10 MG PO SCH (20:35)
[2019-03-05] MEDS: ARICEPT TAB 10 MG PO SCH (20:36)
[2019-03-05] MEDS ORDERED: INVANZ INJ 1 GM VIAL 0.5 GM in NS 50 ML IV 50 ML IV SCH (22:00)
[2019-03-06] MEDS: MIRAPEX TAB 1 MG PO SCH (05:21)
[2019-03-06] MEDS: NEURONTIN CAP 300 MG PO SCH (05:21)
[2019-03-06] MEDS: SINEMET (PLAIN) 25/250 MG PO SCH (05:21)
[2019-03-06] MEDS: NS 1000 ML 1,000 ML IV SCH (05:22)
[2019-03-06 06:18] LABS: BASOPHILS % (AUTO) 0.4 % (0.2-1.0); EOSINOPHILS # (AUTO) 0.1 x10^3/uL (0.0-0.2); EOSINOPHILS % (AUTO) 0.9 % (0.9-2.9); HEMATOCRIT 36.4 % (36.0-47.0); HEMOGLOBIN 12.1 g/dL (12.0-16.0); LYMPHOCYTES # (AUTO) 1.7 X10^3/uL (1.3-2.9); LYMPHOCYTES % (AUTO) 25.6 % (21.0-51.0); MEAN CORPUSCULAR HEMOGLOBIN 34.2 pg (27.0-34.0); MEAN CORPUSCULAR HGB CONC 33.3 g/dL (33.0-35.0); MEAN CORPUSCULAR VOLUME 102.6 fL (80.0-100.0); MEAN PLATELET VOLUME 7.7 fL (7.4-11.0); MONOCYTES # (AUTO) 0.5 x10^3/uL (0.3-0.8); MONOCYTES % (AUTO) 8.2 % (0.0-13.0); NEUTROPHILS # (AUTO) 4.2 x10^3/uL (2.2-4.8); NEUTROPHILS % (AUTO) 64.9 % (42.0-75.0); PLATELET COUNT 204 X10^3/uL (150.0-450.0); RED BLOOD COUNT 3.55 X10^6/uL (3.5-5.4); RED CELL DISTRIBUTION WIDTH 15.7 % (11.6-16.5); WHITE BLOOD COUNT 6.5 X10^3/uL (3.6-10.0)
[2019-03-06 06:47] LABS: ALANINE AMINOTRANSFERASE 8 Units/L (12-78); ALBUMIN 3.2 g/dL (3.4-5.0); ALKALINE PHOSPHATASE 39 Units/L (46-116); ASPARTATE AMINO TRANSFERASE 23 Units/L (15-37); BLOOD UREA NITROGEN 14 mg/dL (7-18); CALCIUM 8.7 mg/dL (8.5-10.1); CARBON DIOXIDE 25.2 mmol/L (21-32); CHLORIDE 104 mmol/L (98-107); COR CA(FOR HYPOALB) 9.3 mg/dL (8.5-10.1); CREATININE 1.66 mg/dL (0.55-1.02); SODIUM 140 mmol/L (136-145); TOTAL PROTEIN 6.1 g/dL (6.4-8.2); eGFR NON BLACK RACES 31 (>60)
[2019-03-06] MEDS ORDERED: ZESTRIL TAB 20 MG ONE (07:11)
[2019-03-06] MEDS: INVANZ INJ 1 GM VIAL 0.5 GM in NS 50 ML IV 50 ML IV SCH ×2 (08:52→09:01)
[2019-03-06] MEDS: ULTRAM PO SCH (08:53)
[2019-03-06] MEDS: PEPCID 20 MG IV PREMIX* 20 MG/50 ML BAG IV SCH (08:53)
[2019-03-06] MEDS: PROTONIX INJ 40 MG VIAL IVP SCH (08:53)
[2019-03-06] MEDS: VITAMIN D3 PO SCH (08:54)
[2019-03-06] MEDS: LOPRESSOR TAB 25 MG PO SCH (08:55)
[2019-03-06] MEDS: K-DUR TAB 20 MEQ PO SCH (08:55)
[2019-03-06] MEDS: ZESTRIL TAB 20 MG PO SCH (08:55)
[2019-03-06] MEDS: AMARYL TAB 4 MG PO SCH (08:55)
[2019-03-06] MEDS: SENOKOT PO SCH (08:57)
[2019-03-06] MEDS: ELIQUIS PO SCH (08:57)
[2019-03-06] MEDS: NORVASC TAB 5 MG PO SCH (08:57)
[2019-03-06] MEDS: DETROL LA 4 MG CAP EXT REL PO SCH (08:57)
[2019-03-06] MEDS: LASIX PO SCH (08:58)
[2019-03-06] MEDS: CELEXA PO SCH (08:58)
[2019-03-06] MEDS ORDERED: VITAMIN B-12 INJ IM SCH (09:00)
[2019-03-06] MEDS ORDERED: CATAPRES-TTS-2 TD SCH (09:00)
[2019-03-06 09:40] VITALS: BP 152/79
== END 2019-03-06 10:45 | disposition home or self-care (01) | DRG 690 ==
LOC: MED/SURG
PROVIDERS: ADMIT Internal Medicine; ATTEND Internal Medicine
DX: R10.84 Generalized abdominal pain; E03.8 Other specified hypothyroidism; Z79.899 Other long term (current) drug therapy; B96.29 Other Escherichia coli [E. coli] as the cause of diseases classified elsewhere; R26.89 Other abnormalities of gait and mobility; N39.0 Urinary tract infection, site not specified; G20 Parkinson's disease; F03.90 Unspecified dementia, unspecified severity, without behavioral disturbance, psychotic disturbance, mood disturbance, and anxiety; E11.65 Type 2 diabetes mellitus with hyperglycemia; I10 Essential (primary) hypertension; G62.9 Polyneuropathy, unspecified; I48.91 Unspecified atrial fibrillation; K21.9 Gastro-esophageal reflux disease without esophagitis; R11.2 Nausea with vomiting, unspecified
CPT/HCPCS: 36415; 74176; 80053; 81001; 82607; 82728; 82746; 83540; 84425; 84466; 85025; 87086; 87088; 87186; 87338; 92523; 94640; 94760; 97162; 97166; 97535; A4222; C9113; S0028; G0378; J0744; J1335; J1642; J2405; J3420; J7030; J7050; J7613

== ENCOUNTER 2019-09-03 13:48 | Observation (INO) ==
[2019-09-03 17:31] VITALS: BMI 28.8
[2019-09-03] MEDS ORDERED: NS 1000 ML 1,000 ML ONE (17:45)
[2019-09-03] MEDS: NS 1000 ML 1,000 ML IV SCH (17:56)
[2019-09-03] MEDS: HumuLIN R SUBCUT PRN ×2 (17:58→21:03)
[2019-09-03 18:00] LABS: BASOPHILS # (AUTO) 0.1 X10^3/uL (0.0-0.1); BASOPHILS % (AUTO) 0.7 % (0.2-1.0); EOSINOPHILS # (AUTO) 0.1 x10^3/uL (0.0-0.2); EOSINOPHILS % (AUTO) 1.1 % (0.9-2.9); HEMATOCRIT 37.2 % (36.0-47.0); HEMOGLOBIN 12.6 g/dL (12.0-16.0); LYMPHOCYTES # (AUTO) 2.7 X10^3/uL (1.3-2.9); LYMPHOCYTES % (AUTO) 34.5 % (21.0-51.0); MEAN PLATELET VOLUME 7.5 fL (7.4-11.0); MONOCYTES # (AUTO) 0.7 x10^3/uL (0.3-0.8); MONOCYTES % (AUTO) 8.3 % (0.0-13.0); NEUTROPHILS # (AUTO) 4.4 x10^3/uL (2.2-4.8); NEUTROPHILS % (AUTO) 55.4 % (42.0-75.0); PLATELET COUNT 196 X10^3/uL (150.0-450.0); RED BLOOD COUNT 3.72 X10^6/uL (3.5-5.4); RED CELL DISTRIBUTION WIDTH 14.5 % (11.6-16.5)
[2019-09-03 18:13] LABS: ALANINE AMINOTRANSFERASE 16 Units/L (12-78); ALBUMIN 3.4 g/dL (3.4-5.0); ALKALINE PHOSPHATASE 56 Units/L (46-116); ASPARTATE AMINO TRANSFERASE 26 Units/L (15-37); BLOOD UREA NITROGEN 22 mg/dL (7-18); CALCIUM 9.1 mg/dL (8.5-10.1); CARBON DIOXIDE 27.9 mmol/L (21-32); CHLORIDE 102 mmol/L (98-107); COR NA(FOR HYPERGLY) 141 mmol/L (136-145); CREATININE 1.97 mg/dL (0.55-1.02); SODIUM 138 mmol/L (136-145); TOTAL PROTEIN 6.7 g/dL (6.4-8.2); eGFR NON BLACK RACES 26 (>60)
[2019-09-03] MEDS ORDERED: MORPHINE SULFATE INJ 2 MG INJ ONE (18:28)
[2019-09-03] MEDS: MORPHINE SULFATE INJ 2 MG INJ IVP PRN (18:34)
[2019-09-03] MEDS ORDERED: MIRALAX POWDER (255 GRAMS BTL) PO PRN (18:35)
--- NOTE | 2019-09-03 18:58 | RAD ---
Chest, one view Indication: Weakness, dehydration, failure to thrive Comparison: 06/01/2019 Findings: There is stable mild enlargement of the cardiac silhouette without congestive failure. Left-sided pacemaker is unchanged. No focal infiltrate or significant effusion is identified. Right IJ port catheter terminates over the caudal SVC without pneumothorax. Impression: No acute cardiopulmonary abnormality. Reported By:
[2019-09-03 19:00] LABS: BILIRUBIN,URINE NEGATIVE (NEGATIVE); BLOOD/HEMOGLOBIN,URINE NEGATIVE (NEGATIVE); GLUCOSE, URINE 1+ (NEGATIVE); KETONES,URINE NEGATIVE (NEGATIVE); LEUKOCYTE ESTERASE ,URINE NEGATIVE (NEGATIVE); NITRITES,URINE NEGATIVE (NEGATIVE); PROTEIN,URINE NEGATIVE (NEGATIVE); UROBILINOGEN,URINE NORMAL (NORMAL)
[2019-09-03 19:10] LABS: APPEARANCE,URINE CLEAR (CLEAR); COLOR,URINE YELLOW (YELLOW)
[2019-09-03] MEDS ORDERED: SNACK - Diabetic Appropriate PO SCH (20:00)
[2019-09-03] MEDS ORDERED: ZESTRIL TAB 20 MG ONE (20:15)
[2019-09-03] MEDS: REQUIP PO SCH (20:33)
[2019-09-03] MEDS: LIPITOR TAB 10 MG PO SCH (20:33)
[2019-09-03] MEDS: DETROL LA 4 MG CAP EXT REL PO SCH (20:34)
[2019-09-03] MEDS: TESSALON PERLES PO SCH (20:34)
[2019-09-03] MEDS: ELIQUIS PO SCH (20:35)
[2019-09-03] MEDS: VITAMIN D3 PO SCH (20:35)
[2019-09-03] MEDS: ZESTRIL TAB 20 MG PO SCH (20:36)
[2019-09-03] MEDS: TOPROL XL PO SCH (20:36)
[2019-09-03] MEDS: SNACK - Diabetic Appropriate PO SCH (20:37)
[2019-09-03] MEDS: ARICEPT TAB 10 MG PO SCH (20:37)
[2019-09-03] MEDS: PROTONIX TAB 40 MG PO SCH (20:37)
[2019-09-03] MEDS: NORCO 7.5/325 MG TAB PO SCH (20:38)
[2019-09-03] MEDS ORDERED: PATIENT'S HOME MEDICATION (Sennosides-Docusate Sodium [Senna-S] 2 TAB) PO SCH (21:00)
[2019-09-03] MEDS ORDERED: PEPCID TAB 20 MG PO SCH (21:00)
[2019-09-03] MEDS: NEURONTIN CAP 300 MG PO SCH (21:55)
[2019-09-03] MEDS: MIRAPEX TAB 1 MG PO SCH (21:55)
[2019-09-03] MEDS: SINEMET (PLAIN) 25/250 MG PO SCH (21:56)
[2019-09-04 02:43] LABS: CKMB % 1.9 % (<4); CREATINE KINASE 53 Units/L (26-192); CREATINE KINASE MB < 1.0 ng/mL (0-4.0); TROPONIN I < 0.02 ng/mL (0-1.5)
[2019-09-04] MEDS: MORPHINE SULFATE INJ 2 MG INJ IVP PRN (04:10)
[2019-09-04] MEDS: HumuLIN R SUBCUT PRN ×4 (06:15→20:57)
[2019-09-04 06:21] LABS: BASOPHILS % (AUTO) 0.6 % (0.2-1.0); EOSINOPHILS # (AUTO) 0.1 x10^3/uL (0.0-0.2); EOSINOPHILS % (AUTO) 1.6 % (0.9-2.9); HEMATOCRIT 37.1 % (36.0-47.0); HEMOGLOBIN 12.6 g/dL (12.0-16.0); LYMPHOCYTES # (AUTO) 2.3 X10^3/uL (1.3-2.9); LYMPHOCYTES % (AUTO) 33.2 % (21.0-51.0); MEAN CORPUSCULAR HEMOGLOBIN 34.2 pg (27.0-34.0); MEAN CORPUSCULAR HGB CONC 33.8 g/dL (33.0-35.0); MEAN CORPUSCULAR VOLUME 101.1 fL (80.0-100.0); MONOCYTES # (AUTO) 0.6 x10^3/uL (0.3-0.8); MONOCYTES % (AUTO) 8.3 % (0.0-13.0); NEUTROPHILS % (AUTO) 56.3 % (42.0-75.0); PLATELET COUNT 187 X10^3/uL (150.0-450.0); RED BLOOD COUNT 3.67 X10^6/uL (3.5-5.4); RED CELL DISTRIBUTION WIDTH 14.5 % (11.6-16.5); WHITE BLOOD COUNT 7.1 X10^3/uL (3.6-10.0)
[2019-09-04] MEDS: MIRAPEX TAB 1 MG PO SCH ×3 (06:24→22:00)
[2019-09-04] MEDS: SINEMET (PLAIN) 25/250 MG PO SCH ×3 (06:25→22:00)
[2019-09-04] MEDS: NEURONTIN CAP 300 MG PO SCH ×3 (06:25→22:00)
[2019-09-04 06:26] LABS: CARBON DIOXIDE 27.6 mmol/L (21-32)
[2019-09-04] MEDS: NS 1000 ML 1,000 ML IV SCH ×2 (06:27→21:14)
[2019-09-04 06:56] LABS: ALBUMIN 3.2 g/dL (3.4-5.0); CALCIUM 8.6 mg/dL (8.5-10.1); COR CA(FOR HYPOALB) 9.2 mg/dL (8.5-10.1); CREATININE 1.53 mg/dL (0.55-1.02); TOTAL PROTEIN 6.2 g/dL (6.4-8.2)
[2019-09-04] MEDS ORDERED: IRON FOLIC ACID MV MIN CMB PO SCH (09:00)
[2019-09-04] MEDS ORDERED: CULTURELLE PRO-WELL PROBIOTIC CAP PO SCH (09:00)
[2019-09-04] MEDS ORDERED: TRAMADOL 300 MG PO SCH (09:00)
[2019-09-04] MEDS ORDERED: CATAPRES-TTS-2 TD SCH (09:00)
[2019-09-04] MEDS ORDERED: ZESTRIL TAB 20 MG ONE ×2 (09:03→20:41)
[2019-09-04] MEDS: K-DUR TAB 20 MEQ PO SCH (09:25)
[2019-09-04] MEDS: TESSALON PERLES PO SCH ×2 (09:25→20:51)
[2019-09-04] MEDS: ELIQUIS PO SCH ×2 (09:26→20:54)
[2019-09-04] MEDS: VITAMIN D3 PO SCH ×2 (09:26→20:55)
[2019-09-04] MEDS: CELEXA PO SCH (09:26)
[2019-09-04] MEDS: AMARYL TAB 4 MG PO SCH (09:26)
[2019-09-04] MEDS: PROTONIX TAB 40 MG PO SCH ×2 (09:27→20:55)
[2019-09-04] MEDS: TOPROL XL PO SCH ×2 (09:27→20:53)
[2019-09-04] MEDS: PEPCID TAB 20 MG PO SCH (09:27)
[2019-09-04] MEDS: ZESTRIL TAB 20 MG PO SCH ×2 (09:27→20:54)
[2019-09-04] MEDS: NORVASC TAB 5 MG PO SCH (09:27)
[2019-09-04] MEDS: SYNTHROID 100 mcg TAB PO SCH (09:27)
[2019-09-04] MEDS ORDERED: ULTRAM PO PRN (09:49)
[2019-09-04] MEDS: VSL#3 PO SCH ×2 (10:46→20:55)
[2019-09-04] MEDS: FOLTX PO SCH (10:46)
[2019-09-04] MEDS: ROCEPHIN VIAL 1 GRAM 1 G in NS 100 ML IV + SPIKE MINIBAG* 100 ML IV SCH (10:46)
--- NOTE | 2019-09-04 11:06 | CT ---
History: Nasal congestion Study: CT of the paranasal sinuses without contrast. Sagittal and coronal reformations were provided. Comparison: August 22, 2017 Findings: There is mild mucosal thickening in the floor of the left maxillary sinus. There is an unchanged retention cyst or polyp inferiorly and anteriorly in the left maxillary sinus. There is a small retention cyst superiorly in the right maxillary sinus and a more prominent retention cyst in the floor of the right maxillary sinus as before. The ostiomeatal complexes are patent. There is pneumatization of the middle turbinates. The posterior mid nasal septum is deviated to the left. There is a small osteoma in a left anterior medial ethmoid air cell. There is no bone erosion or fracture in the sinuses. There is mild deformity from old fracture of the distal nasal E on. There is severe osteophytes about the left atlanto occipital joint. Impression: Mild mucosal thickening in the left maxillary sinus inferiorly with an unchanged retention cysts or polyps in the right maxillary and left maxillary sinuses. Patent ostiomeatal complexes. Unchanged posterior septal deviation. No evidence for acute disease Reported By:
--- NOTE | 2019-09-04 12:37 | DR.UPDATE ---
H&P Update History and Physical Update: History and Physical reviewed and patient examined. Changes noted: Yes with the following: RETURNED TO THE OFFICE TODAY WITH COMPLAINTS OF EXCESSIVE FATIGUE, WEAKNESS, AND DECREASED APPETITE. SHE WAS ADMITTED FOR FURTHER EVALUATION AND TREATMENT. ON ADMISSION, WE WILL OBTAIN LABS, A URINALYSIS, AND A CHEST XRAY. WE WILL START NORMAL SALINE AT 80ML/HR AND WILL RESUME HOME MEDICATIONS. WE PLAN TO FOLLOW UP WITH AM LABS AND CONTINUE TO MONITOR.
[2019-09-04] MEDS: REQUIP PO SCH (20:50)
[2019-09-04] MEDS: NORCO 7.5/325 MG TAB PO SCH (20:51)
[2019-09-04] MEDS: SENOKOT PO PRN (20:52)
[2019-09-04] MEDS: DETROL LA 4 MG CAP EXT REL PO SCH (20:55)
[2019-09-04] MEDS: ARICEPT TAB 10 MG PO SCH (20:55)
[2019-09-04] MEDS: LIPITOR TAB 10 MG PO SCH (20:55)
[2019-09-04] MEDS: SNACK - Diabetic Appropriate PO SCH (20:56)
[2019-09-04] MEDS ORDERED: DESYREL PO SCH (21:00)
[2019-09-05 06:12] LABS: BASOPHILS % (AUTO) 0.6 % (0.2-1.0); EOSINOPHILS # (AUTO) 0.1 x10^3/uL (0.0-0.2); EOSINOPHILS % (AUTO) 1.6 % (0.9-2.9); HEMATOCRIT 36.9 % (36.0-47.0); HEMOGLOBIN 12.4 g/dL (12.0-16.0); LYMPHOCYTES % (AUTO) 32.9 % (21.0-51.0); MEAN CORPUSCULAR HEMOGLOBIN 34.1 pg (27.0-34.0); MEAN CORPUSCULAR HGB CONC 33.8 g/dL (33.0-35.0); MEAN CORPUSCULAR VOLUME 101.1 fL (80.0-100.0); MEAN PLATELET VOLUME 7.7 fL (7.4-11.0); MONOCYTES # (AUTO) 0.5 x10^3/uL (0.3-0.8); MONOCYTES % (AUTO) 8.8 % (0.0-13.0); NEUTROPHILS # (AUTO) 3.5 x10^3/uL (2.2-4.8); NEUTROPHILS % (AUTO) 56.1 % (42.0-75.0); PLATELET COUNT 190 X10^3/uL (150.0-450.0); RED BLOOD COUNT 3.65 X10^6/uL (3.5-5.4); RED CELL DISTRIBUTION WIDTH 14.7 % (11.6-16.5); WHITE BLOOD COUNT 6.2 X10^3/uL (3.6-10.0)
[2019-09-05] MEDS: NEURONTIN CAP 300 MG PO SCH ×3 (06:23→22:00)
[2019-09-05] MEDS: MIRAPEX TAB 1 MG PO SCH ×3 (06:23→22:00)
[2019-09-05] MEDS: SINEMET (PLAIN) 25/250 MG PO SCH ×3 (06:23→22:00)
[2019-09-05 06:24] LABS: ALBUMIN 2.9 g/dL (3.4-5.0); CALCIUM 8.5 mg/dL (8.5-10.1); CARBON DIOXIDE 27.1 mmol/L (21-32); COR CA(FOR HYPOALB) 9.4 mg/dL (8.5-10.1); CREATININE 1.48 mg/dL (0.55-1.02); TOTAL PROTEIN 5.8 g/dL (6.4-8.2)
[2019-09-05] MEDS ORDERED: ZESTRIL TAB 20 MG ONE ×2 (09:13→20:01)
[2019-09-05] MEDS: VITAMIN D3 PO SCH ×2 (09:34→20:29)
[2019-09-05] MEDS: VSL#3 PO SCH ×2 (09:34→20:28)
[2019-09-05] MEDS: FOLTX PO SCH (09:35)
[2019-09-05] MEDS: CELEXA PO SCH (09:35)
[2019-09-05] MEDS: ROCEPHIN VIAL 1 GRAM 1 G in NS 100 ML IV + SPIKE MINIBAG* 100 ML IV SCH (09:35)
[2019-09-05] MEDS: TESSALON PERLES PO SCH ×2 (09:36→20:31)
[2019-09-05] MEDS: PEPCID TAB 20 MG PO SCH (09:37)
[2019-09-05] MEDS: SYNTHROID 100 mcg TAB PO SCH (09:37)
[2019-09-05] MEDS: AMARYL TAB 4 MG PO SCH (09:37)
[2019-09-05] MEDS: K-DUR TAB 20 MEQ PO SCH (09:38)
[2019-09-05] MEDS: ELIQUIS PO SCH ×2 (09:38→20:35)
[2019-09-05] MEDS: NS 1000 ML 1,000 ML IV SCH (09:41)
[2019-09-05] MEDS: PROTONIX TAB 40 MG PO SCH ×2 (09:43→20:32)
[2019-09-05] MEDS: NORVASC TAB 5 MG PO SCH (11:17)
[2019-09-05] MEDS: HumuLIN R SUBCUT PRN ×3 (11:23→20:41)
--- NOTE | 2019-09-05 11:33 | PCM.PROG ---
Progress Note - Progress Note for Day of Date of Exam: 09/04/19 - Subjective Subjective: WAS ADMITTED FOR DEHYDRATION, DECREASED APPETITE, AND FAILURE TO THRIVE. TODAY, SHE IS ALERT AND ORIENTED, LYING IN BED ON MORNING ROUNDS. SHE REPORTS WEAKNESS, HEADACHE, AND SINUS CONGESTION TODAY. STAFF REPORTS THAT HER OXYGEN SATURATIONS DROPPED TO THE LOW 80S ON NASAL CANNULA LAST NIGHT. ON EXAMINATION, HEART IS REGULAR IN RATE AND RHYTHM. BILATERAL LUNGS ARE NOTED WITH DIMINISHED LUNG SOUNDS THROUGHOUT. ABDOMEN IS ROUND, SOFT, AND NON- TENDER WITH NORMAL BOWEL SOUNDS NOTED IN ALL QUADRANTS. HIS VITALS THIS MORNING ARE: 97.1-67-18-97%-137/67. LABS WERE OBTAINED. ABNORMAL LAB VALUES INCLUDE THE FOLLOWING: BUN 19, CREATININE 1.53, GLUCOSE 178, AST 38, TOTAL PROTEIN 6.2, AL BUMIN 3.2. SHE IS CURRENTLY RECEIVING NORMAL SALINE AT 80ML/HR, AND HOME MEDICATIONS WERE RESUMED. TODAY, WE WILL OBTAIN A SINUS CT AND START ROCEPHIN 1G IV DAILY FOR ACUTE SINUSITIS. WE WILL START TRAZADONE 150MG PO AT BEDTIME FOR SLEEP. WE WILL OBTAIN AN OVERNIGHT PULSE OX. OTHERWISE, WE PLAN TO FOLLOW UP WITH AM LABS AND CONTINUE TO MONITOR. - Past Medical Family Social History Past Med/Fam/Surg Hx: No changes since H&P Allergies: Allergies latex Allergy (Verified 09/07/18 16:52) ADHESIVE TAPE Allergy (Uncoded 09/07/18 16:52) - Review of Systems ROS: No change since H&P - Vital Signs and I&O's Vital Signs: Temperature 97.9 F Pulse Rate [Right Radial] 75 Pulse Rate 69 Respiratory Rate 20 Blood Pressure [Left Calf] 149/72 Blood Pressure [Right Arm] 185/82 Blood Pressure 129/59 O2 Sat by Pulse Oximetry 96 Intake and Output: Intake & Output 09/02/19 09/03/19 09/04/19 09/05/19 11:59 11:59 11:59 11:59 Intake Total 1900 / 1900 2885 / 2885 Output Total 1000 / 1000 1999 / 1999 Balance 900 / 900 885 / 885 - Physical Exam Oriented: Normal Eyes: Normal Ear: Normal Nose: Normal Throat: Normal Respiratory: Generalized, Diminished : Normal Auscultation: Bowel Sounds: Normal Palpation: Normal Tenderness: Normal Skin: Decreased Turgur Musculoskeletal: Normal Psychiatric: Normal Mood Description: Calm Affect: Normal Speech Pattern: Clear, Appropriate - Laboratory and Diagnostics Result Diagrams: 09/05/19 05:53 09/05/19 05:53 Labs: Laboratory WBC 6.2 X10^3/uL (3.6-10.0) 09/05/19 05:53 RBC 3.65 X10^6/uL (3.5-5.4) 09/05/19 05:53 Hgb 12.4 g/dL (12.0-16.0) 09/05/19 05:53 Hct 36.9 % (36.0-47.0) 09/05/19 05:53 MCV 101.1 fL (80.0-100.0) H 09/05/19 05:53 MCH 34.1 pg (27.0-34.0) H 09/05/19 05:53 MCHC 33.8 g/dL (33.0-35.0) 09/05/19 05:53 RDW 14.7 % (11.6-16.5) 09/05/19 05:53 Plt Count 190 X10^3/uL (150.0-450.0) 09/05/19 05:53 MPV 7.7 fL (7.4-11.0) 09/05/19 05:53 Neut % (Auto) 56.1 % (42.0-75.0) 09/05/19 05:53 Lymph % (Auto) 32.9 % (21.0-51.0) 09/05/19 05:53 [place] % (Auto) 8.8 % (0.0-13.0) 09/05/19 05:53 Eos % (Auto) 1.6 % (0.9-2.9) 09/05/19 05:53 Baso % (Auto) 0.6 % (0.2-1.0) 09/05/19 05:53 Neut # (Auto) 3.5 x10^3/uL (2.2-4.8) 09/05/19 05:53 Lymph # (Auto) 2.0 X10^3/uL (1.3-2.9) 09/05/19 05:53 [place] # (Auto) 0.5 x10^3/uL (0.3-0.8) 09/05/19 05:53 Eos # (Auto) 0.1 x10^3/uL (0.0-0.2) 09/05/19 05:53 Baso # (Auto) 0.0 X10^3/uL (0.0-0.1) 09/05/19 05:53 Absolute Nucleated RBC 0.0 /100WBC 09/05/19 05:53 Sodium 140 mmol/L (136-145) 09/05/19 05:53 Corrected Sodium 141 mmol/L (136-145) 09/05/19 05:53 Potassium 4.3 mmol/L (3.5-5.1) 09/05/19 05:53 Chloride 106 mmol/L (98-107) 09/05/19 05:53 Carbon Dioxide 27.1 mmol/L (21-32) 09/05/19 05:53 BUN 18 mg/dL (7-18) 09/05/19 05:53 Creatinine 1.48 mg/dL (0.55-1.02) H 09/05/19 05:53 Est GFR (MDRD) Af Amer 43 (>60) L 09/05/19 05:53 Est GFR (MDRD) Non-Af 36 (>60) L 09/05/19 05:53 Glucose 145 mg/dL (65-99) H 09/05/19 05:53 POC Glucose (mg/dL) 226 mg/dL (65-99) H 09/05/19 11:19 Calcium 8.5 mg/dL (8.5-10.1) 09/05/19 05:53 Corrected Calcium 9.4 mg/dL (8.5-10.1) 09/05/19 05:53 Total Bilirubin 0.30 mg/dL (0.2-1.0) 09/05/19 05:53 AST 39 Units/L (15-37) H 09/05/19 05:53 ALT 13 Units/L (12-78) 09/05/19 05:53 Alkaline Phosphatase 50 Units/L (46-116) 09/05/19 05:53 Creatine Kinase 53 Units/L (26-192) 09/04/19 02:15 CK-MB (CK-2) < 1.0 ng/mL (0-4.0) 09/04/19 02:15 CK/CKMB % Calc 1.9 % (<4) 09/04/19 02:15 Troponin I < 0.02 ng/mL (0-1.5) 09/04/19 02:15 Total Protein 5.8 g/dL (6.4-8.2) L 09/05/19 05:53 Albumin 2.9 g/dL (3.4-5.0) L 09/05/19 05:53 Globulin 2.9 g/dL (2.5-4.5) 09/05/19 05:53 Albumin/Globulin Ratio 1.0 Ratio (1.1-2.1) L 09/05/19 05:53 Specimen Type Clean catch urine 09/03/19 18:50 Urine Color Yellow (YELLOW) 09/03/19 18:50 Urine Appearance Clear (CLEAR) 09/03/19 18:50 Urine pH 6.0 (5.0 - 8.0) 09/03/19 18:50 Ur Specific [place] 1.015 (1.000-1.030) 09/03/19 18:50 Urine Protein Negative (NEGATIVE) 09/03/19 18:50 Urine Glucose (UA) 1+ (NEGATIVE) 09/03/19 18:50 Urine Ketones Negative (NEGATIVE) 09/03/19 18:50 Urine Occult Blood Negative (NEGATIVE) 09/03/19 18:50 Urine Nitrite Negative (NEGATIVE) 09/03/19 18:50 Urine Bilirubin Negative (NEGATIVE) 09/03/19 18:50 Urine Urobilinogen Normal (NORMAL) 09/03/19 18:50 Ur Leukocyte Esterase Negative (NEGATIVE) 09/03/19 18:50 - Plan (1) Dehydration Status: Acute Plan: NORMAL SALINE, CONTINUE TO MONITOR (2) Failure to thrive Status: Acute Qualifiers: Failure to thrive age range: in adult Qualified Code(s): R62.7 - Adult failure to thrive Plan: NORMAL SALINE, CONTINUE TO MONITOR (3) Sinusitis Status: Acute Qualifiers: Sinusitis location: unspecified location Chronicity: acute Recurrence: recurrent Qualified Code(s): J01.91 - Acute recurrent sinusitis, unspecified Plan: ROCEPHIN 1G IV DAILY, CONTINUE TO MONITOR
[2019-09-05] MEDS: ZESTRIL TAB 20 MG PO SCH ×2 (13:28→20:33)
[2019-09-05] MEDS: TOPROL XL PO SCH ×2 (13:31→20:35)
--- NOTE | 2019-09-05 20:20 | PCM.PROG ---
Progress Note - Progress Note for Day of Date of Exam: 09/05/19 - Subjective Subjective: WAS ADMITTED FOR DEHYDRATION, DECREASED APPETITE, AND FAILURE TO THRIVE. TODAY, SHE IS ALERT AND ORIENTED, LYING IN BED ON MORNING ROUNDS. SHE CONTINUES WITH WEAKNESS AND SINUS CONGESTION TODAY. SHE REPORTS SLEEPING BETTER LAST NIGHT. ON EXAMINATION, HEART IS REGULAR IN RATE AND RHYTHM. BILATERAL LUNGS ARE NOTED WITH DIMINISHED LUNG SOUNDS THROUGHOUT. ABDOMEN IS ROUND, SOFT, AND NON-TENDER WITH NORMAL BOWEL SOUNDS NOTED IN ALL QUADRANTS. HER VITALS THIS MORNING ARE: 97.9-60-20-97%-131/63. LABS WERE OBTAINED. ABNORMAL LAB VALUES INCLUDE THE FOLLOWING: CREATININE 1.48, GLUCOSE 145, AST 39, TOTAL PROTEIN 5.8, ALUBMIN 2.9. A SINUS CT WAS OBTAINED AND REVEALED: Mild mucosal thickening in the left maxillary sinus inferiorly with an unchanged retention cysts or polyps in the right maxillary and left maxillary sinuses. Patent ostiomeatal complexes. Unchanged posterior septal deviation. No evidence for acute disease. SHE IS CURRENTLY RECEIVING NORMAL SALINE AT 80ML/HR, ROCEPHIN 1G IV DAILY, AND HOME MEDICATIONS WERE RESUMED. WE WILL DECREASE TRAZODONE TO 50MG PO HS. OTHERWISE, WE PLAN TO FOLLOW UP WITH AM LABS AND CONTINUE TO MONITOR. - Past Medical Family Social History Past Med/Fam/Surg Hx: No changes since H&P Allergies: Allergies latex Allergy (Verified 09/07/18 16:52) ADHESIVE TAPE Allergy (Uncoded 09/07/18 16:52) - Review of Systems ROS: No change since H&P - Vital Signs and I&O's Vital Signs: Temperature 97.8 F Pulse Rate [Right Radial] 75 Pulse Rate 69 Respiratory Rate 21 Blood Pressure [Left Calf] 149/72 Blood Pressure [Right Arm] 185/82 Blood Pressure 168/91 O2 Sat by Pulse Oximetry 99 Intake and Output: Intake & Output 09/03/19 09/04/19 09/05/19 09/06/19 11:59 11:59 11:59 11:59 Intake Total 1900 / 1900 2885 / 2885 1021 / 1021 Output Total 1000 / 1000 1999 / 1999 300 / 300 Balance 900 / 900 885 / 885 721 / 721 - Physical Exam Oriented: Normal Eyes: Normal Ear: Normal Nose: Normal Throat: Normal Respiratory: Generalized, Diminished : Normal Auscultation: Bowel Sounds: Normal Palpation: Normal Tenderness: Normal Skin: Decreased Turgur Musculoskeletal: Normal Psychiatric: Normal Mood Description: Calm Affect: Normal Speech Pattern: Clear, Appropriate - Laboratory and Diagnostics Result Diagrams: 09/05/19 05:53 09/05/19 05:53 Labs: Laboratory WBC 6.2 X10^3/uL (3.6-10.0) 09/05/19 05:53 RBC 3.65 X10^6/uL (3.5-5.4) 09/05/19 05:53 Hgb 12.4 g/dL (12.0-16.0) 09/05/19 05:53 Hct 36.9 % (36.0-47.0) 09/05/19 05:53 MCV 101.1 fL (80.0-100.0) H 09/05/19 05:53 MCH 34.1 pg (27.0-34.0) H 09/05/19 05:53 MCHC 33.8 g/dL (33.0-35.0) 09/05/19 05:53 RDW 14.7 % (11.6-16.5) 09/05/19 05:53 Plt Count 190 X10^3/uL (150.0-450.0) 09/05/19 05:53 MPV 7.7 fL (7.4-11.0) 09/05/19 05:53 Neut % (Auto) 56.1 % (42.0-75.0) 09/05/19 05:53 Lymph % (Auto) 32.9 % (21.0-51.0) 09/05/19 05:53 [place] % (Auto) 8.8 % (0.0-13.0) 09/05/19 05:53 Eos % (Auto) 1.6 % (0.9-2.9) 09/05/19 05:53 Baso % (Auto) 0.6 % (0.2-1.0) 09/05/19 05:53 Neut # (Auto) 3.5 x10^3/uL (2.2-4.8) 09/05/19 05:53 Lymph # (Auto) 2.0 X10^3/uL (1.3-2.9) 09/05/19 05:53 [place] # (Auto) 0.5 x10^3/uL (0.3-0.8) 09/05/19 05:53 Eos # (Auto) 0.1 x10^3/uL (0.0-0.2) 09/05/19 05:53 Baso # (Auto) 0.0 X10^3/uL (0.0-0.1) 09/05/19 05:53 Absolute Nucleated RBC 0.0 /100WBC 09/05/19 05:53 Sodium 140 mmol/L (136-145) 09/05/19 05:53 Corrected Sodium 141 mmol/L (136-145) 09/05/19 05:53 Potassium 4.3 mmol/L (3.5-5.1) 09/05/19 05:53 Chloride 106 mmol/L (98-107) 09/05/19 05:53 Carbon Dioxide 27.1 mmol/L (21-32) 09/05/19 05:53 BUN 18 mg/dL (7-18) 09/05/19 05:53 Creatinine 1.48 mg/dL (0.55-1.02) H 09/05/19 05:53 Est GFR (MDRD) Af Amer 43 (>60) L 09/05/19 05:53 Est GFR (MDRD) Non-Af 36 (>60) L 09/05/19 05:53 Glucose 145 mg/dL (65-99) H 09/05/19 05:53 POC Glucose (mg/dL) 181 mg/dL (65-99) H 09/05/19 16:15 Calcium 8.5 mg/dL (8.5-10.1) 09/05/19 05:53 Corrected Calcium 9.4 mg/dL (8.5-10.1) 09/05/19 05:53 Total Bilirubin 0.30 mg/dL (0.2-1.0) 09/05/19 05:53 AST 39 Units/L (15-37) H 09/05/19 05:53 ALT 13 Units/L (12-78) 09/05/19 05:53 Alkaline Phosphatase 50 Units/L (46-116) 09/05/19 05:53 Creatine Kinase 53 Units/L (26-192) 09/04/19 02:15 CK-MB (CK-2) < 1.0 ng/mL (0-4.0) 09/04/19 02:15 CK/CKMB % Calc 1.9 % (<4) 09/04/19 02:15 Troponin I < 0.02 ng/mL (0-1.5) 09/04/19 02:15 Total Protein 5.8 g/dL (6.4-8.2) L 09/05/19 05:53 Albumin 2.9 g/dL (3.4-5.0) L 09/05/19 05:53 Globulin 2.9 g/dL (2.5-4.5) 09/05/19 05:53 Albumin/Globulin Ratio 1.0 Ratio (1.1-2.1) L 09/05/19 05:53 Specimen Type Clean catch urine 09/03/19 18:50 Urine Color Yellow (YELLOW) 09/03/19 18:50 Urine Appearance Clear (CLEAR) 09/03/19 18:50 Urine pH 6.0 (5.0 - 8.0) 09/03/19 18:50 Ur Specific [place] 1.015 (1.000-1.030) 09/03/19 18:50 Urine Protein Negative (NEGATIVE) 09/03/19 18:50 Urine Glucose (UA) 1+ (NEGATIVE) 09/03/19 18:50 Urine Ketones Negative (NEGATIVE) 09/03/19 18:50 Urine Occult Blood Negative (NEGATIVE) 09/03/19 18:50 Urine Nitrite Negative (NEGATIVE) 09/03/19 18:50 Urine Bilirubin Negative (NEGATIVE) 09/03/19 18:50 Urine Urobilinogen Normal (NORMAL) 09/03/19 18:50 Ur Leukocyte Esterase Negative (NEGATIVE) 09/03/19 18:50 - Plan (1) Dehydration Status: Acute Plan: NORMAL SALINE, CONTINUE TO MONITOR (2) Failure to thrive Status: Acute Qualifiers: Failure to thrive age range: in adult Qualified Code(s): R62.7 - Adult failure to thrive Plan: NORMAL SALINE, CONTINUE TO MONITOR (3) Sinusitis Status: Acute Qualifiers: Sinusitis location: unspecified location Chronicity: acute Recurrence: recurrent Qualified Code(s): J01.91 - Acute recurrent sinusitis, unspecified Plan: ROCEPHIN 1G IV DAILY, CONTINUE TO MONITOR
[2019-09-05] MEDS: REQUIP PO SCH (20:31)
[2019-09-05] MEDS: DETROL LA 4 MG CAP EXT REL PO SCH (20:32)
[2019-09-05] MEDS: LIPITOR TAB 10 MG PO SCH (20:33)
[2019-09-05] MEDS: SENOKOT PO PRN (20:33)
[2019-09-05] MEDS: NORCO 7.5/325 MG TAB PO SCH (20:35)
[2019-09-05] MEDS: SNACK - Diabetic Appropriate PO SCH (20:36)
[2019-09-05] MEDS: ARICEPT TAB 10 MG PO SCH (20:41)
[2019-09-05] MEDS ORDERED: DESYREL PO SCH (21:00)
[2019-09-06] MEDS: NS 1000 ML 1,000 ML IV SCH ×2 (01:16→11:48)
[2019-09-06] MEDS: MIRAPEX TAB 1 MG PO SCH (05:43)
[2019-09-06] MEDS: NEURONTIN CAP 300 MG PO SCH (05:43)
[2019-09-06] MEDS: SINEMET (PLAIN) 25/250 MG PO SCH (05:44)
[2019-09-06 06:35] LABS: BASOPHILS % (AUTO) 0.5 % (0.2-1.0); EOSINOPHILS # (AUTO) 0.1 x10^3/uL (0.0-0.2); EOSINOPHILS % (AUTO) 1.7 % (0.9-2.9); HEMATOCRIT 37.3 % (36.0-47.0); HEMOGLOBIN 12.5 g/dL (12.0-16.0); LYMPHOCYTES % (AUTO) 31.7 % (21.0-51.0); MEAN CORPUSCULAR HEMOGLOBIN 33.9 pg (27.0-34.0); MEAN CORPUSCULAR HGB CONC 33.5 g/dL (33.0-35.0); MEAN CORPUSCULAR VOLUME 101.3 fL (80.0-100.0); MONOCYTES # (AUTO) 0.5 x10^3/uL (0.3-0.8); MONOCYTES % (AUTO) 7.3 % (0.0-13.0); NEUTROPHILS # (AUTO) 3.8 x10^3/uL (2.2-4.8); NEUTROPHILS % (AUTO) 58.8 % (42.0-75.0); PLATELET COUNT 191 X10^3/uL (150.0-450.0); RED BLOOD COUNT 3.68 X10^6/uL (3.5-5.4); RED CELL DISTRIBUTION WIDTH 14.9 % (11.6-16.5); WHITE BLOOD COUNT 6.4 X10^3/uL (3.6-10.0)
[2019-09-06 06:44] LABS: ALBUMIN 2.9 g/dL (3.4-5.0); CALCIUM 8.7 mg/dL (8.5-10.1); CARBON DIOXIDE 26.6 mmol/L (21-32); COR CA(FOR HYPOALB) 9.6 mg/dL (8.5-10.1); CREATININE 1.32 mg/dL (0.55-1.02); TOTAL PROTEIN 5.8 g/dL (6.4-8.2)
[2019-09-06] MEDS ORDERED: ZESTRIL TAB 20 MG ONE (08:41)
[2019-09-06] MEDS: ROCEPHIN VIAL 1 GRAM 1 G in NS 100 ML IV + SPIKE MINIBAG* 100 ML IV SCH (09:06)
[2019-09-06] MEDS: VSL#3 PO SCH (09:06)
[2019-09-06] MEDS: K-DUR TAB 20 MEQ PO SCH (09:07)
[2019-09-06] MEDS: FOLTX PO SCH (09:07)
[2019-09-06] MEDS: PEPCID TAB 20 MG PO SCH (09:07)
[2019-09-06] MEDS: SYNTHROID 100 mcg TAB PO SCH (09:07)
[2019-09-06] MEDS: VITAMIN D3 PO SCH (09:07)
[2019-09-06] MEDS: PROTONIX TAB 40 MG PO SCH (09:08)
[2019-09-06] MEDS: TESSALON PERLES PO SCH (09:08)
[2019-09-06] MEDS: ZESTRIL TAB 20 MG PO SCH (09:08)
[2019-09-06] MEDS: ELIQUIS PO SCH (09:08)
[2019-09-06] MEDS: AMARYL TAB 4 MG PO SCH (09:08)
[2019-09-06] MEDS: CELEXA PO SCH (09:08)
[2019-09-06] MEDS: NORVASC TAB 5 MG PO SCH (09:09)
[2019-09-06] MEDS: TOPROL XL PO SCH (09:09)
[2019-09-06] MEDS: HumuLIN R SUBCUT PRN (12:35)
[2019-09-06 13:50] VITALS: BP 147/70
== END 2019-09-06 13:50 | disposition home health service (06) ==
LOC: ICU
PROVIDERS: ADMIT Internal Medicine; ATTEND Internal Medicine
DX: R94.31 Abnormal electrocardiogram [ECG] [EKG]; E86.0 Dehydration; J01.91 Acute recurrent sinusitis, unspecified; R62.7 Adult failure to thrive; R26.89 Other abnormalities of gait and mobility; Z79.899 Other long term (current) drug therapy; R53.83 Other fatigue
CPT/HCPCS: 36415; 70486; 71010; 71045; 80053; 81003; 82550; 82553; 84484; 85025; 93005; 96360; 96361; 96372; 96374; 97110; 97162; 97166; 97535; A4216; A4222; G0378; J0696; J1642; J1815; J2270; J7030; J7050

== ENCOUNTER 2019-10-29 12:50 | Inpatient (IN) ==
[2019-10-29 16:40] LABS: BASOPHILS # (AUTO) 0.1 X10^3/uL (0.0-0.1); BASOPHILS % (AUTO) 0.5 % (0.2-1.0); EOSINOPHILS # (AUTO) 0.1 x10^3/uL (0.0-0.2); EOSINOPHILS % (AUTO) 0.8 % (0.9-2.9); HEMATOCRIT 45.1 % (36.0-47.0); HEMOGLOBIN 14.8 g/dL (12.0-16.0); LYMPHOCYTES # (AUTO) 2.1 X10^3/uL (1.3-2.9); LYMPHOCYTES % (AUTO) 19.3 % (21.0-51.0); MEAN CORPUSCULAR HEMOGLOBIN 33.6 pg (27.0-34.0); MEAN CORPUSCULAR HGB CONC 32.9 g/dL (33.0-35.0); MEAN PLATELET VOLUME 8.7 fL (7.4-11.0); MONOCYTES # (AUTO) 0.7 x10^3/uL (0.3-0.8); MONOCYTES % (AUTO) 6.4 % (0.0-13.0); NEUTROPHILS # (AUTO) 8.1 x10^3/uL (2.2-4.8); PLATELET COUNT 218 X10^3/uL (150.0-450.0); RED BLOOD COUNT 4.42 X10^6/uL (3.5-5.4); RED CELL DISTRIBUTION WIDTH 14.3 % (11.6-16.5)
[2019-10-29 17:38] VITALS: BMI 27.3
[2019-10-29] MEDS: NS 1000 ML 1,000 ML IV SCH (17:50)
[2019-10-29 18:30] LABS: ALANINE AMINOTRANSFERASE 10 Units/L (12-78); ALBUMIN 3.5 g/dL (3.4-5.0); ALKALINE PHOSPHATASE 49 Units/L (46-116); ASPARTATE AMINO TRANSFERASE 18 Units/L (15-37); BLOOD UREA NITROGEN 54 mg/dL (7-18); CALCIUM 9.4 mg/dL (8.5-10.1); CARBON DIOXIDE 22.4 mmol/L (21-32); CHLORIDE 101 mmol/L (98-107); COR NA(FOR HYPERGLY) 144 mmol/L (136-145); CREATININE 2.78 mg/dL (0.55-1.02); SODIUM 134 mmol/L (136-145); TOTAL PROTEIN 6.8 g/dL (6.4-8.2); eGFR NON BLACK RACES 17 (>60)
[2019-10-29 18:40] LABS: BILIRUBIN,URINE NEGATIVE (NEGATIVE); BLOOD/HEMOGLOBIN,URINE NEGATIVE (NEGATIVE); GLUCOSE, URINE 4+ (NEGATIVE); KETONES,URINE NEGATIVE (NEGATIVE); LEUKOCYTE ESTERASE ,URINE NEGATIVE (NEGATIVE); NITRITES,URINE NEGATIVE (NEGATIVE); PROTEIN,URINE NEGATIVE (NEGATIVE); UROBILINOGEN,URINE NORMAL (NORMAL)
[2019-10-29 18:43] LABS: APPEARANCE,URINE CLEAR (CLEAR); COLOR,URINE YELLOW (YELLOW)
--- NOTE | 2019-10-29 18:45 | RAD ---
HISTORYSOBSTUDYCHEST, 1 [id number] left ventricle is mildly enlarged but unchanged. The pulmonary vessels are normal. The lungs are mildly hyperinflated. There is a right Port-A-Cath in place which is unchanged. There is a left pacemaker in place which is unchanged. No consolidation or effusion is seen.IMPRESSIONStable chronic changes with no acute abnormality seen.Electronically signed by: CHRISTA MACKEY (Oct 29, 2019 18:43:31)
[2019-10-29] MEDS: HumuLIN R SUBCUT PRN ×2 (18:59→22:53)
[2019-10-29] MEDS ORDERED: MIRALAX POWDER (255 GRAMS BTL) PO PRN (21:32)
[2019-10-29] MEDS ORDERED: CARBIDOPA LEVODOPA PO SCH (22:00)
[2019-10-29] MEDS ORDERED: CATAPRES-TTS-2 TD SCH ×2 (22:00)
[2019-10-29] MEDS: MIRAPEX TAB 1 MG PO SCH (22:31)
[2019-10-29] MEDS: SINEMET (PLAIN) 25/250 MG PO SCH (22:32)
[2019-10-29] MEDS: NORCO 7.5/325 MG TAB PO PRN (22:32)
[2019-10-29] MEDS: NEURONTIN CAP 300 MG PO SCH (22:33)
[2019-10-29] MEDS: TESSALON PERLES PO SCH (22:33)
[2019-10-29] MEDS: FLONASE NASAL SPRAY ENOSTRIL SCH (22:33)
[2019-10-30] MEDS: NS 1000 ML 1,000 ML IV SCH ×3 (04:09→06:01)
[2019-10-30 05:59] LABS: BASOPHILS % (AUTO) 0.5 % (0.2-1.0); EOSINOPHILS # (AUTO) 0.1 x10^3/uL (0.0-0.2); EOSINOPHILS % (AUTO) 1.3 % (0.9-2.9); HEMATOCRIT 37.3 % (36.0-47.0); HEMOGLOBIN 12.6 g/dL (12.0-16.0); LYMPHOCYTES # (AUTO) 1.9 X10^3/uL (1.3-2.9); LYMPHOCYTES % (AUTO) 23.9 % (21.0-51.0); MEAN CORPUSCULAR HEMOGLOBIN 34.3 pg (27.0-34.0); MEAN CORPUSCULAR HGB CONC 33.6 g/dL (33.0-35.0); MEAN PLATELET VOLUME 8.4 fL (7.4-11.0); MONOCYTES # (AUTO) 0.5 x10^3/uL (0.3-0.8); MONOCYTES % (AUTO) 6.6 % (0.0-13.0); NEUTROPHILS # (AUTO) 5.3 x10^3/uL (2.2-4.8); NEUTROPHILS % (AUTO) 67.7 % (42.0-75.0); PLATELET COUNT 170 X10^3/uL (150.0-450.0); RED BLOOD COUNT 3.66 X10^6/uL (3.5-5.4); RED CELL DISTRIBUTION WIDTH 13.9 % (11.6-16.5); WHITE BLOOD COUNT 7.8 X10^3/uL (3.6-10.0)
[2019-10-30] MEDS: SINEMET (PLAIN) 25/250 MG PO SCH ×3 (06:00→21:11)
[2019-10-30] MEDS: TESSALON PERLES PO SCH ×3 (06:00→21:09)
[2019-10-30] MEDS: NEURONTIN CAP 300 MG PO SCH ×3 (06:00→21:11)
[2019-10-30] MEDS: MIRAPEX TAB 1 MG PO SCH ×3 (06:00→21:07)
[2019-10-30 06:25] LABS: ALBUMIN 2.9 g/dL (3.4-5.0); CALCIUM 8.2 mg/dL (8.5-10.1); CARBON DIOXIDE 26.9 mmol/L (21-32); COR CA(FOR HYPOALB) 9.1 mg/dL (8.5-10.1); CREATININE 2.26 mg/dL (0.55-1.02); MAGNESIUM 2.1 mg/dL (1.7-2.9); TOTAL PROTEIN 5.7 g/dL (6.4-8.2)
[2019-10-30] MEDS: HumuLIN R SUBCUT PRN ×2 (06:26→21:27)
[2019-10-30] MEDS ORDERED: ZESTRIL TAB 20 MG ONE ×2 (08:32→20:33)
[2019-10-30] MEDS ORDERED: MONTELUKAST 10 MG PO SCH (09:00)
[2019-10-30] MEDS ORDERED: PATIENT'S HOME MEDICATION (Cholecalciferol (Vitamin D3) [Vitamin D3] 2,000 UNIT) PO SCH (09:00)
[2019-10-30] MEDS ORDERED: IRON FOLIC ACID MV MIN CMB PO SCH (09:00)
[2019-10-30] MEDS: TAB-A-VITE PO SCH (09:01)
[2019-10-30] MEDS: PROTONIX TAB 40 MG PO SCH ×2 (09:01→21:09)
[2019-10-30] MEDS: CELEXA PO SCH (09:01)
[2019-10-30] MEDS: SYNTHROID 100 mcg TAB PO SCH (09:01)
[2019-10-30] MEDS: VITAMIN D3 PO SCH ×2 (09:01→21:09)
[2019-10-30] MEDS: DETROL LA 4 MG CAP EXT REL PO SCH (09:01)
[2019-10-30] MEDS: AMARYL TAB 4 MG PO SCH (09:02)
[2019-10-30] MEDS: PEPCID TAB 20 MG PO SCH ×2 (09:02→21:08)
[2019-10-30] MEDS: COLACE CAP 100 MG PO SCH ×2 (09:02→21:11)
[2019-10-30] MEDS: ZESTRIL TAB 20 MG PO SCH ×2 (09:02→21:12)
[2019-10-30] MEDS: TOPROL XL PO SCH ×2 (09:02→21:08)
[2019-10-30] MEDS: ELIQUIS PO SCH ×2 (09:03→21:08)
[2019-10-30] MEDS: TRAMADOL 300 MG PO SCH (09:31)
--- NOTE | 2019-10-30 09:47 | DR.UPDATE ---
H&P Update History and Physical Update: History and Physical reviewed and patient examined. Changes noted: Yes with the following: WAS SEEN IN THE OFFICE AGAIN TODAY FOR COMPLAINTS OF WEAKNESS AND FREQUENT FALLS. FAMILY REPORTS THAT SHE HAS FELL EVERYDAY FOR THE PAST 3-4 DAYS. SHE WAS ADMITTED FOR FURTHER EVALUATION AND TREATMENT. ON ADMISSION, WE WILL OBTAIN LABS, UA, CHEST XRAY, AND START NORMAL SALINE AT 50ML/HR. WE WILL REVIEW HER HOME MEDICATIONS. OTHERWISE, WE WILL FOLLOW UP WITH AM LABS AND CONTINUE TO MONITOR. Prescription drug monitoring program results: PDMP was not reviewed H&P Reviewed: Yes Patient was examined?: Yes
[2019-10-30] MEDS: NORCO 7.5/325 MG TAB PO PRN (10:37)
[2019-10-30] MEDS: FLONASE NASAL SPRAY ENOSTRIL SCH ×2 (10:38→21:12)
[2019-10-30] MEDS: SINGULAIR TAB 10 MG PO SCH (21:07)
[2019-10-30] MEDS: ZyrTEC TAB 10 MG PO SCH (21:09)
[2019-10-30] MEDS: REQUIP PO SCH (21:09)
[2019-10-30] MEDS: ARICEPT TAB 10 MG PO SCH (21:10)
[2019-10-30] MEDS: LIPITOR TAB 10 MG PO SCH (21:12)
[2019-10-30] MEDS: SNACK - Diabetic Appropriate PO SCH (21:27)
[2019-10-30] MEDS: RESTORIL CAP 15 MG PO PRN (23:10)
[2019-10-31] MEDS: NS 1000 ML 1,000 ML IV SCH ×3 (03:00→20:33)
[2019-10-31 05:31] LABS: BASOPHILS % (AUTO) 0.5 % (0.2-1.0); EOSINOPHILS # (AUTO) 0.1 x10^3/uL (0.0-0.2); EOSINOPHILS % (AUTO) 1.6 % (0.9-2.9); HEMATOCRIT 38.7 % (36.0-47.0); LYMPHOCYTES # (AUTO) 1.7 X10^3/uL (1.3-2.9); LYMPHOCYTES % (AUTO) 20.4 % (21.0-51.0); MEAN CORPUSCULAR HEMOGLOBIN 33.8 pg (27.0-34.0); MEAN CORPUSCULAR HGB CONC 33.6 g/dL (33.0-35.0); MEAN CORPUSCULAR VOLUME 100.7 fL (80.0-100.0); MEAN PLATELET VOLUME 8.8 fL (7.4-11.0); MONOCYTES # (AUTO) 0.5 x10^3/uL (0.3-0.8); MONOCYTES % (AUTO) 6.1 % (0.0-13.0); NEUTROPHILS # (AUTO) 5.8 x10^3/uL (2.2-4.8); NEUTROPHILS % (AUTO) 71.4 % (42.0-75.0); PLATELET COUNT 179 X10^3/uL (150.0-450.0); RED BLOOD COUNT 3.84 X10^6/uL (3.5-5.4); WHITE BLOOD COUNT 8.2 X10^3/uL (3.6-10.0)
[2019-10-31] MEDS: MIRAPEX TAB 1 MG PO SCH ×3 (05:39→21:04)
[2019-10-31] MEDS: SINEMET (PLAIN) 25/250 MG PO SCH ×3 (05:40→21:08)
[2019-10-31] MEDS: TESSALON PERLES PO SCH ×3 (05:40→21:08)
[2019-10-31] MEDS: NEURONTIN CAP 300 MG PO SCH ×3 (05:41→21:04)
[2019-10-31 05:43] LABS: ALBUMIN 2.8 g/dL (3.4-5.0); CALCIUM 8.5 mg/dL (8.5-10.1); CARBON DIOXIDE 23.9 mmol/L (21-32); COR CA(FOR HYPOALB) 9.5 mg/dL (8.5-10.1); CREATININE 1.5 mg/dL (0.55-1.02); TOTAL PROTEIN 5.7 g/dL (6.4-8.2)
[2019-10-31] MEDS ORDERED: ZESTRIL TAB 20 MG ONE ×2 (08:33→19:32)
[2019-10-31] MEDS: PROTONIX TAB 40 MG PO SCH ×2 (09:07→20:10)
[2019-10-31] MEDS: COLACE CAP 100 MG PO SCH ×2 (09:07→20:10)
[2019-10-31] MEDS: CELEXA PO SCH (09:07)
[2019-10-31] MEDS: SYNTHROID 100 mcg TAB PO SCH (09:08)
[2019-10-31] MEDS: ELIQUIS PO SCH ×2 (09:08→20:11)
[2019-10-31] MEDS: DETROL LA 4 MG CAP EXT REL PO SCH (09:09)
[2019-10-31] MEDS: TAB-A-VITE PO SCH (09:09)
[2019-10-31] MEDS: PEPCID TAB 20 MG PO SCH ×2 (09:09→20:10)
[2019-10-31] MEDS: VITAMIN D3 PO SCH ×2 (09:09→20:09)
[2019-10-31] MEDS: ZESTRIL TAB 20 MG PO SCH ×2 (09:09→20:11)
[2019-10-31] MEDS: TOPROL XL PO SCH ×2 (09:10→20:10)
[2019-10-31] MEDS: FLONASE NASAL SPRAY ENOSTRIL SCH ×2 (09:10→22:08)
[2019-10-31] MEDS: AMARYL TAB 4 MG PO SCH (09:10)
[2019-10-31] MEDS: NORCO 7.5/325 MG TAB PO PRN (09:17)
[2019-10-31] MEDS: TRAMADOL 300 MG PO SCH ×2 (11:01→20:32)
[2019-10-31] MEDS: HumuLIN R SUBCUT PRN ×2 (17:01→21:05)
[2019-10-31] MEDS: REQUIP PO SCH (20:09)
[2019-10-31] MEDS: ZyrTEC TAB 10 MG PO SCH (20:11)
[2019-10-31] MEDS: LIPITOR TAB 10 MG PO SCH (20:11)
[2019-10-31] MEDS: ARICEPT TAB 10 MG PO SCH (20:12)
[2019-10-31] MEDS: SINGULAIR TAB 10 MG PO SCH (20:12)
[2019-10-31] MEDS: RESTORIL CAP 15 MG PO PRN (20:12)
[2019-10-31] MEDS: SNACK - Diabetic Appropriate PO SCH (20:31)
[2019-11-01] MEDS: NEURONTIN CAP 300 MG PO SCH (05:08)
[2019-11-01] MEDS: MIRAPEX TAB 1 MG PO SCH (05:08)
[2019-11-01] MEDS: TESSALON PERLES PO SCH (05:09)
[2019-11-01] MEDS: SINEMET (PLAIN) 25/250 MG PO SCH (05:09)
[2019-11-01 05:15] LABS: BASOPHILS % (AUTO) 0.3 % (0.2-1.0); EOSINOPHILS # (AUTO) 0.1 x10^3/uL (0.0-0.2); EOSINOPHILS % (AUTO) 1.3 % (0.9-2.9); HEMATOCRIT 38.6 % (36.0-47.0); LYMPHOCYTES # (AUTO) 1.7 X10^3/uL (1.3-2.9); LYMPHOCYTES % (AUTO) 23.1 % (21.0-51.0); MEAN CORPUSCULAR HEMOGLOBIN 33.9 pg (27.0-34.0); MEAN CORPUSCULAR HGB CONC 33.8 g/dL (33.0-35.0); MEAN CORPUSCULAR VOLUME 100.3 fL (80.0-100.0); MEAN PLATELET VOLUME 8.5 fL (7.4-11.0); MONOCYTES # (AUTO) 0.6 x10^3/uL (0.3-0.8); MONOCYTES % (AUTO) 7.8 % (0.0-13.0); NEUTROPHILS # (AUTO) 4.9 x10^3/uL (2.2-4.8); NEUTROPHILS % (AUTO) 67.5 % (42.0-75.0); PLATELET COUNT 168 X10^3/uL (150.0-450.0); RED BLOOD COUNT 3.85 X10^6/uL (3.5-5.4); WHITE BLOOD COUNT 7.3 X10^3/uL (3.6-10.0)
[2019-11-01 05:23] LABS: ALANINE AMINOTRANSFERASE < 6 Units/L (12-78); ALBUMIN 2.8 g/dL (3.4-5.0); ALKALINE PHOSPHATASE 38 Units/L (46-116); ASPARTATE AMINO TRANSFERASE 23 Units/L (15-37); BLOOD UREA NITROGEN 22 mg/dL (7-18); CALCIUM 8.6 mg/dL (8.5-10.1); CARBON DIOXIDE 26.3 mmol/L (21-32); CHLORIDE 105 mmol/L (98-107); COR CA(FOR HYPOALB) 9.6 mg/dL (8.5-10.1); COR NA(FOR HYPERGLY) 139 mmol/L (136-145); CREATININE 1.24 mg/dL (0.55-1.02); SODIUM 138 mmol/L (136-145); TOTAL PROTEIN 5.5 g/dL (6.4-8.2); eGFR NON BLACK RACES 44 (>60)
--- NOTE | 2019-11-01 09:00 | PCM.PROG ---
Progress Note - Progress Note for Day of Date of Exam: 10/30/19 - Subjective Subjective: WAS ADMITTED FOR FREQUENT FALLS, GENERALIZED WEAKNESS, HYPERGLYCEMIA, AND HYPERKALEMIA. TODAY, SHE IS ALERT AND ORIENTED, LYING IN BED ON MORNING ROUNDS. SHE REPORTS SLIGHT IMPROVEMENT IN WEAKNESS SINCE YESTERDAY. ON EXAMINATION, HEART IS REGULAR IN RATE AND RHYTHM. BILATERAL LUNGS ARE NOTED WITH DIMINISHED LUNG SOUNDS THROUGHOUT. ABDOMEN IS ROUND, SOFT, AND NON-TENDER WITH NORMAL BOWEL SOUNDS NOTED IN ALL QUADRANTS. HER VITALS THIS MORNING ARE: 97.9-77-20-97%-118/70. LABS WERE OBTAINED. ABNORMAL LAB VALUES INCLUDE THE FOLLOWING: BUN 49, CREATININE 2.26, GLUCOSE 218, CALCIUM 8.2, ALT 7, ALK PHOS 40, TOTAL PROTEIN 5.7, ALBUMIN 2.9. HER POTASSIUM IS NORMAL AT 4.6 TODAY. SHE IS CURRNETLY RECEIVING NORMAL SALINE AT 50 ML/HR, HUMULIN R SLIDING SCALE, AND HOME MEDICATIONS WERE RESUMED. WE WILL CONTINUE WITH CURRENT PLAN OF CARE TODAY. OTHERWISE, WE WILL FOLLOW UP WITH AM LABS AND CONTINUE TO MONITOR. - Past Medical Family Social History Past Med/Fam/Surg Hx: No changes since H&P Allergies: Allergies latex Allergy (Verified 09/07/18 16:52) ADHESIVE TAPE Allergy (Uncoded 09/07/18 16:52) - Review of Systems ROS: No change since H&P - Vital Signs and I&O's Vital Signs: Temperature 97.7 F Pulse Rate [Right Brachial] 63 Respiratory Rate 20 Blood Pressure [Left Calf] 149/72 Blood Pressure [Right Arm] 155/85 Blood Pressure [Left Arm] 124/61 Blood Pressure 147/70 O2 Sat by Pulse Oximetry 95 Intake and Output: Intake & Output 10/29/19 10/30/19 10/31/19 11/01/19 11:59 11:59 11:59 11:59 Intake Total 1500 / 1500 1390 / 1390 2624 / 2624 Balance 1500 / 1500 1390 / 1390 2624 / 2624 - Physical Exam Oriented: Normal Eyes: Normal Ear: Normal Nose: Normal Throat: Normal Respiratory: Generalized, Diminished Cardiovascular: Normal : Normal Auscultation: Bowel Sounds: Normal Palpation: Normal Tenderness: Normal Skin: Decreased Turgur Musculoskeletal: Motor Deficit (GENERALIZED WEAKNESS ) Psychiatric: Normal Mood Description: Calm Affect: Normal Speech Pattern: Clear, Appropriate - Laboratory and Diagnostics Result Diagrams: 11/01/19 04:47 11/01/19 04:47 Labs: Laboratory WBC 7.3 X10^3/uL (3.6-10.0) 11/01/19 04:47 RBC 3.85 X10^6/uL (3.5-5.4) 11/01/19 04:47 Hgb 13.0 g/dL (12.0-16.0) 11/01/19 04:47 Hct 38.6 % (36.0-47.0) 11/01/19 04:47 MCV 100.3 fL (80.0-100.0) H 11/01/19 04:47 MCH 33.9 pg (27.0-34.0) 11/01/19 04:47 MCHC 33.8 g/dL (33.0-35.0) 11/01/19 04:47 RDW 14.0 % (11.6-16.5) 11/01/19 04:47 Plt Count 168 X10^3/uL (150.0-450.0) 11/01/19 04:47 MPV 8.5 fL (7.4-11.0) 11/01/19 04:47 Neut % (Auto) 67.5 % (42.0-75.0) 11/01/19 04:47 Lymph % (Auto) 23.1 % (21.0-51.0) 11/01/19 04:47 [place] % (Auto) 7.8 % (0.0-13.0) 11/01/19 04:47 Eos % (Auto) 1.3 % (0.9-2.9) 11/01/19 04:47 Baso % (Auto) 0.3 % (0.2-1.0) 11/01/19 04:47 Neut # (Auto) 4.9 x10^3/uL (2.2-4.8) H 11/01/19 04:47 Lymph # (Auto) 1.7 X10^3/uL (1.3-2.9) 11/01/19 04:47 [place] # (Auto) 0.6 x10^3/uL (0.3-0.8) 11/01/19 04:47 Eos # (Auto) 0.1 x10^3/uL (0.0-0.2) 11/01/19 04:47 Baso # (Auto) 0.0 X10^3/uL (0.0-0.1) 11/01/19 04:47 Absolute Nucleated RBC 0.1 /100WBC 11/01/19 04:47 Sodium 138 mmol/L (136-145) 11/01/19 04:47 Corrected Sodium 139 mmol/L (136-145) 11/01/19 04:47 Potassium 4.2 mmol/L (3.5-5.1) 11/01/19 04:47 Chloride 105 mmol/L (98-107) 11/01/19 04:47 Carbon Dioxide 26.3 mmol/L (21-32) 11/01/19 04:47 BUN 22 mg/dL (7-18) H 11/01/19 04:47 Creatinine 1.24 mg/dL (0.55-1.02) H 11/01/19 04:47 Est GFR (MDRD) Af Amer 53 (>60) L 11/01/19 04:47 Est GFR (MDRD) Non-Af 44 (>60) L 11/01/19 04:47 Glucose 128 mg/dL (65-99) H 11/01/19 04:47 POC Glucose (mg/dL) 129 mg/dL (65-99) H 11/01/19 05:31 Calcium 8.6 mg/dL (8.5-10.1) 11/01/19 04:47 Corrected Calcium 9.6 mg/dL (8.5-10.1) 11/01/19 04:47 Magnesium 2.1 mg/dL (1.7-2.9) 10/30/19 04:56 Total Bilirubin 0.40 mg/dL (0.2-1.0) 11/01/19 04:47 AST 23 Units/L (15-37) 11/01/19 04:47 ALT < 6 Units/L (12-78) L 11/01/19 04:47 Alkaline Phosphatase 38 Units/L (46-116) L 11/01/19 04:47 Total Protein 5.5 g/dL (6.4-8.2) L 11/01/19 04:47 Albumin 2.8 g/dL (3.4-5.0) L 11/01/19 04:47 Globulin 2.7 g/dL (2.5-4.5) 11/01/19 04:47 Albumin/Globulin Ratio 1.0 Ratio (1.1-2.1) L 11/01/19 04:47 Specimen Type Clean catch urine 10/29/19 18:15 Urine Color Yellow (YELLOW) 10/29/19 18:15 Urine Appearance Clear (CLEAR) 10/29/19 18:15 Urine pH 5.0 (5.0 - 8.0) 10/29/19 18:15 Ur Specific [place] 1.015 (1.000-1.030) 10/29/19 18:15 Urine Protein Negative (NEGATIVE) 10/29/19 18:15 Urine Glucose (UA) 4+ (NEGATIVE) 10/29/19 18:15 Urine Ketones Negative (NEGATIVE) 10/29/19 18:15 Urine Occult Blood Negative (NEGATIVE) 10/29/19 18:15 Urine Nitrite Negative (NEGATIVE) 10/29/19 18:15 Urine Bilirubin Negative (NEGATIVE) 10/29/19 18:15 Urine Urobilinogen Normal (NORMAL) 10/29/19 18:15 Ur Leukocyte Esterase Negative (NEGATIVE) 10/29/19 18:15 - Plan (1) Generalized weakness Status: Acute Plan: PT, IV FLUIDS, CONTINUE TO MONITOR (2) Frequent falls Status: Acute Plan: PT, IV FLUIDS, CONTINUE TO MONITOR (3) Hyperkalemia Status: Resolved Plan: CONTINUE IV FLUIDS, CONTINUE TO MONITOR (4) Hyperglycemia Status: Acute Plan: HUMULIN R SLIDING SCALE, CONTINUE TO MONITOR
[2019-11-01] MEDS ORDERED: ZESTRIL TAB 20 MG ONE (09:32)
--- NOTE | 2019-11-01 09:42 | PCM.PROG ---
Progress Note - Progress Note for Day of Date of Exam: 10/31/19 - Subjective Subjective: WAS ADMITTED FOR FREQUENT FALLS, GENERALIZED WEAKNESS, HYPERGLYCEMIA, AND HYPERKALEMIA. TODAY, SHE IS ALERT AND ORIENTED, LYING IN BED ON MORNING ROUNDS. SHE REPORTS SLIGHT IMPROVEMENT IN WEAKNESS SINCE YESTERDAY. ON EXAMINATION, HEART IS REGULAR IN RATE AND RHYTHM. BILATERAL LUNGS ARE NOTED WITH DIMINISHED LUNG SOUNDS THROUGHOUT. ABDOMEN IS ROUND, SOFT, AND NON-TENDER WITH NORMAL BOWEL SOUNDS NOTED IN ALL QUADRANTS. HER VITALS THIS MORNING ARE: 97.4-74-20-96%-180/94. LABS WERE OBTAINED. ABNORMAL LAB VALUES INCLUDE THE FOLLOWING: BUN 31, CREATININE 1.50, GLUCOSE 120, ALT 7, ALK PHOS 37, TOTAL PROTEIN 5.7, ALBUMIN 2.8. HER POTASSIUM IS NORMAL AT 4.2 TODAY. SHE IS CURRNETLY RECEIVING NORMAL SALINE AT 50 ML/HR, HUMULIN R SLIDING SCALE, AND HOME MEDICATIONS WERE RESUMED. WE WILL CONTINUE WITH CURRENT PLAN OF CARE TODAY. OTHERWISE, WE WILL FOLLOW UP WITH AM LABS AND CONTINUE TO MONITOR. - Past Medical Family Social History Past Med/Fam/Surg Hx: No changes since H&P Allergies: Allergies latex Allergy (Verified 09/07/18 16:52) ADHESIVE TAPE Allergy (Uncoded 09/07/18 16:52) - Review of Systems ROS: No change since H&P - Vital Signs and I&O's Vital Signs: Temperature 97.7 F Pulse Rate [Right Brachial] 63 Respiratory Rate 20 Blood Pressure [Left Calf] 149/72 Blood Pressure [Right Arm] 155/85 Blood Pressure [Left Arm] 124/61 Blood Pressure 147/70 O2 Sat by Pulse Oximetry 95 Intake and Output: Intake & Output 10/29/19 10/30/19 10/31/19 11/01/19 11:59 11:59 11:59 11:59 Intake Total 1500 / 1500 1390 / 1390 2624 / 2624 Balance 1500 / 1500 1390 / 1390 2624 / 2624 - Physical Exam Oriented: Normal Eyes: Normal Ear: Normal Nose: Normal Throat: Normal Respiratory: Generalized, Diminished Cardiovascular: Normal : Normal Auscultation: Bowel Sounds: Normal Palpation: Normal Tenderness: Normal Skin: Decreased Turgur Musculoskeletal: Motor Deficit (GENERALIZED WEAKNESS ) Psychiatric: Normal Mood Description: Calm Affect: Normal Speech Pattern: Clear, Appropriate - Laboratory and Diagnostics Result Diagrams: 11/01/19 04:47 11/01/19 04:47 Labs: Laboratory WBC 7.3 X10^3/uL (3.6-10.0) 11/01/19 04:47 RBC 3.85 X10^6/uL (3.5-5.4) 11/01/19 04:47 Hgb 13.0 g/dL (12.0-16.0) 11/01/19 04:47 Hct 38.6 % (36.0-47.0) 11/01/19 04:47 MCV 100.3 fL (80.0-100.0) H 11/01/19 04:47 MCH 33.9 pg (27.0-34.0) 11/01/19 04:47 MCHC 33.8 g/dL (33.0-35.0) 11/01/19 04:47 RDW 14.0 % (11.6-16.5) 11/01/19 04:47 Plt Count 168 X10^3/uL (150.0-450.0) 11/01/19 04:47 MPV 8.5 fL (7.4-11.0) 11/01/19 04:47 Neut % (Auto) 67.5 % (42.0-75.0) 11/01/19 04:47 Lymph % (Auto) 23.1 % (21.0-51.0) 11/01/19 04:47 [place] % (Auto) 7.8 % (0.0-13.0) 11/01/19 04:47 Eos % (Auto) 1.3 % (0.9-2.9) 11/01/19 04:47 Baso % (Auto) 0.3 % (0.2-1.0) 11/01/19 04:47 Neut # (Auto) 4.9 x10^3/uL (2.2-4.8) H 11/01/19 04:47 Lymph # (Auto) 1.7 X10^3/uL (1.3-2.9) 11/01/19 04:47 [place] # (Auto) 0.6 x10^3/uL (0.3-0.8) 11/01/19 04:47 Eos # (Auto) 0.1 x10^3/uL (0.0-0.2) 11/01/19 04:47 Baso # (Auto) 0.0 X10^3/uL (0.0-0.1) 11/01/19 04:47 Absolute Nucleated RBC 0.1 /100WBC 11/01/19 04:47 Sodium 138 mmol/L (136-145) 11/01/19 04:47 Corrected Sodium 139 mmol/L (136-145) 11/01/19 04:47 Potassium 4.2 mmol/L (3.5-5.1) 11/01/19 04:47 Chloride 105 mmol/L (98-107) 11/01/19 04:47 Carbon Dioxide 26.3 mmol/L (21-32) 11/01/19 04:47 BUN 22 mg/dL (7-18) H 11/01/19 04:47 Creatinine 1.24 mg/dL (0.55-1.02) H 11/01/19 04:47 Est GFR (MDRD) Af Amer 53 (>60) L 11/01/19 04:47 Est GFR (MDRD) Non-Af 44 (>60) L 11/01/19 04:47 Glucose 128 mg/dL (65-99) H 11/01/19 04:47 POC Glucose (mg/dL) 129 mg/dL (65-99) H 11/01/19 05:31 Calcium 8.6 mg/dL (8.5-10.1) 11/01/19 04:47 Corrected Calcium 9.6 mg/dL (8.5-10.1) 11/01/19 04:47 Magnesium 2.1 mg/dL (1.7-2.9) 10/30/19 04:56 Total Bilirubin 0.40 mg/dL (0.2-1.0) 11/01/19 04:47 AST 23 Units/L (15-37) 11/01/19 04:47 ALT < 6 Units/L (12-78) L 11/01/19 04:47 Alkaline Phosphatase 38 Units/L (46-116) L 11/01/19 04:47 Total Protein 5.5 g/dL (6.4-8.2) L 11/01/19 04:47 Albumin 2.8 g/dL (3.4-5.0) L 11/01/19 04:47 Globulin 2.7 g/dL (2.5-4.5) 11/01/19 04:47 Albumin/Globulin Ratio 1.0 Ratio (1.1-2.1) L 11/01/19 04:47 Specimen Type Clean catch urine 10/29/19 18:15 Urine Color Yellow (YELLOW) 10/29/19 18:15 Urine Appearance Clear (CLEAR) 10/29/19 18:15 Urine pH 5.0 (5.0 - 8.0) 10/29/19 18:15 Ur Specific [place] 1.015 (1.000-1.030) 10/29/19 18:15 Urine Protein Negative (NEGATIVE) 10/29/19 18:15 Urine Glucose (UA) 4+ (NEGATIVE) 10/29/19 18:15 Urine Ketones Negative (NEGATIVE) 10/29/19 18:15 Urine Occult Blood Negative (NEGATIVE) 10/29/19 18:15 Urine Nitrite Negative (NEGATIVE) 10/29/19 18:15 Urine Bilirubin Negative (NEGATIVE) 10/29/19 18:15 Urine Urobilinogen Normal (NORMAL) 10/29/19 18:15 Ur Leukocyte Esterase Negative (NEGATIVE) 10/29/19 18:15 - Plan (1) Generalized weakness Status: Acute Plan: PT, IV FLUIDS, CONTINUE TO MONITOR (2) Frequent falls Status: Acute Plan: PT, IV FLUIDS, CONTINUE TO MONITOR (3) Hyperkalemia Status: Resolved Plan: CONTINUE IV FLUIDS, CONTINUE TO MONITOR (4) Hyperglycemia Status: Acute Plan: HUMULIN R SLIDING SCALE, CONTINUE TO MONITOR
[2019-11-01] MEDS: TAB-A-VITE PO SCH (09:49)
[2019-11-01] MEDS: TOPROL XL PO SCH (09:49)
[2019-11-01] MEDS: COLACE CAP 100 MG PO SCH (09:49)
[2019-11-01] MEDS: VITAMIN D3 PO SCH (09:49)
[2019-11-01] MEDS: AMARYL TAB 4 MG PO SCH (09:49)
[2019-11-01] MEDS: CELEXA PO SCH (09:50)
[2019-11-01] MEDS: SYNTHROID 100 mcg TAB PO SCH (09:50)
[2019-11-01] MEDS: ELIQUIS PO SCH (09:50)
[2019-11-01] MEDS: PROTONIX TAB 40 MG PO SCH (09:50)
[2019-11-01] MEDS: DETROL LA 4 MG CAP EXT REL PO SCH (09:50)
[2019-11-01] MEDS: ZESTRIL TAB 20 MG PO SCH (09:50)
[2019-11-01] MEDS: TRAMADOL 300 MG PO SCH (09:52)
[2019-11-01] MEDS: PEPCID TAB 20 MG PO SCH (10:00)
[2019-11-01] MEDS: FLONASE NASAL SPRAY ENOSTRIL SCH (11:39)
--- NOTE | 2019-11-01 11:56 | RAD ---
HISTORYShortness of breathSTUDYPortable AP chestCOMPARISONOctober 2018FINDINGSThere is limited inspiration of grossly clear lungs. The heart size is prominent with intact pacemaker wire leads via the left subclavian vein. There are cholecystectomy clips. No significant bony abnormality is demonstrated. There is an unchanged Port-A-Cath via the right internal jugular vein.IMPRESSIONLimited inspiration, no definite acute cardiopulmonary disease.Electronically signed by: SATISH NGUYEN (Nov 01, 2019 11:55:15)
[2019-11-01 13:21] VITALS: BP 119/80
== END 2019-11-01 12:30 | disposition home or self-care (01) | DRG 641 ==
LOC: MED/SURG → OBSVTOIN 15:44
PROVIDERS: ADMIT Internal Medicine; ATTEND Internal Medicine
DX: R53.1 Weakness; Z79.899 Other long term (current) drug therapy; R26.89 Other abnormalities of gait and mobility; E87.5 Hyperkalemia; R29.6 Repeated falls; E11.65 Type 2 diabetes mellitus with hyperglycemia
CPT/HCPCS: 36415; 71010; 71045; 80053; 81003; 83735; 85025; 94760; 97162; A4216; J1642; J1815; J7030

== ENCOUNTER 2019-11-12 12:02 | Inpatient (IN) ==
--- NOTE | 2019-11-12 12:44 | DR.DIZZY ---
HPI - Time seen Time seen: 12:41 - PCP Primary Care Physician: DANIELLA - Complaint Chief Complaint:: FAMILY STATES "PT HAS DECREASED MOTOR SKILLS, AMS, TROUBLE WITH SWALLOWING, BLOOD SUGAR RUNNING HIGH." CALLED OFFICE AND THEY ADVISED DAUGHTER TO BRING PT TO ER. Self Treatment fo Chief Complaint: PT IS DIAGNOSED WITH PARKSINSON, DOES NOT SLEEP WELL AT NIGHT, HAS SEIZURE LIKE MOVEMENTS WITH PARKINSON. Patient normally can do a shuffeling walk but not now and normally can eat but not now. - Nurses Notes Reviewed Nurses Notes Review: Yes - Source History Provided: Patient, Family Member - Mode of Arrival Mode of Arrival: Wheelchair - Timing Onset of Chief Complaint: 11/12/19 Came on: Suddenly Onset of Symptoms Start Date: 11/11/19 Onset of Symptoms Start Time: 19:00 - Duration Duration: Constant How lon Duration: Hours - Location of Weakness Weakness Location: Generalized - Context Onset: At rest History of: DM Stroke Symptoms: Dizziness - Severity Severity: Bedridden (currently but usually can ambulate some) - Modifying factors Worsens: Nothing - Associated signs and symptoms Associated Signs and Symptoms: Imbalance (parkinsons) PMH - PMH Past Medical History: Yes Past Medical History: Coronary Artery Disease, Hypertension, Dyslipidemia, Diabetes, Hypothyroidism, Anemia, GERD, Arthritis, Kidney Stones, Sleep Apnea, CHF Past Medical History Comment: PARKINSON Past Surgical History: Yes Surgical History: Angioplasty/Stents, Bowel Resection, Hysterectomy, Mastectomy, Ortho Surgery Past Surgical History Comment: LEFT BREAST RECONSTURCTION - Family History History of Family Medical Conditions: Yes Family Medical History: Diabetes Mellitus, Cancer, Heart Failure, Hypertension - Social History Alcohol Use: None Do you use any recreational Drugs:: No Lives With: Family Lives Where: Home - infectious screening In the last 2 months have you had wt loss of >10#?: NO Have you had fever, night sweats or hemotysis?: No Have you traveled outside the country in the last 6 months?: No Isolation: Standard ROS - Review of Systems Constitutional: Weakness Eyes: No Symptoms Reported ENTM: No Symptoms Reported Respiratoy: No Symptoms Reported Cardiovascular: No Symptoms Reported Gastrointestinal/Abdominal: Other (decreased eating) Genitourinary: Frequency Neurological: Dizziness, Problems Walking Musculoskeletal: No Symptoms Reported Integumentary: Other (senile skin) Hematologic/Lymphatic: No Symptoms Reported Endocrine: Decreased Appetite Psychiatric: Depression PE - General Limitations: Other (awake but lethargic) General Appearance: In No Apparent Distress, Lethargic - Head Head Exam: Normal Inspection - Eyes Eye exam: Normal Appearance, EOMI Sclera/Conjunctival: Normal Inspection: Bilateral Anterior Chamber: Normal Inspection: Bilateral - Neck Neck Exam: Normal Inspection, Full ROM, Trachea Midline - Chest Chest Inspection: Normal Inspection - Respiratory Respiratory Exam: Normal Lung Sounds Bilat. negative: Accessory Muscle Use Respiratory Exam: Bilateral Clear to Auscultation - Cardiovascular Cardiovascular Exam: Regular Rate - Abdominal Exam Abdominal Exam: Normal Inspection, Normal Bowel Sounds. negative: Distention, Tenderness - Rectal Rectal Exam: Deferred - Extremeties Extremities Exam: Normal Inspection, Full ROM - Back Back Exam: Normal Inspection - Neurologic Neurological Exam: Oriented X3, CN II-XII Intact. negative: Normal Gait Speech: Other (slow speech) Cranial Nerve Exam: EOM Function (II, III, IV, ): Normal, Tongue Deviation: Normal - Psychiatric Psychiatric Exam: Depressed - Skin Skin Exam: Intact, Other (senile skin) - Vital Signs Vitals: Temperature 97.7 F Pulse Rate 74 Respiratory Rate 20 Blood Pressure [Left Calf] 149/72 Blood Pressure [Right Arm] 119/80 Blood Pressure 130/72 O2 Sat by Pulse Oximetry 92 Course - Consultation Called: 15:05 Call Returned: 15:30 Consultation Comments: DR. Petit nurse called back admit per DR. Petit ROR - Labs Reviewed Result Diagrams: 11/12/19 13:40 11/12/19 13:40 - XRAY XRAY Interpreted by: Radiologist XRAY Findings: chest: no acute disease CtBrain: no acute findings - EKG Rate: 71 [place]: Normal Rhythm: NSR Block: None Hypertrophy: LVH ST: Nonsp - Labs Reviewed Laboratory: WBC 14.7 X10^3/uL (3.6-10.0) H 11/12/19 13:40 RBC 3.83 X10^6/uL (3.5-5.4) 11/12/19 13:40 Hgb 12.9 g/dL (12.0-16.0) 11/12/19 13:40 Hct 38.3 % (36.0-47.0) 11/12/19 13:40 MCV 100.0 fL (80.0-100.0) 11/12/19 13:40 MCH 33.5 pg (27.0-34.0) 11/12/19 13:40 MCHC 33.6 g/dL (33.0-35.0) 11/12/19 13:40 RDW 14.4 % (11.6-16.5) 11/12/19 13:40 Plt Count 104 X10^3/uL (150.0-450.0) L 11/12/19 13:40 MPV 9.0 fL (7.4-11.0) 11/12/19 13:40 Neut % (Auto) 85.9 % (42.0-75.0) H 11/12/19 13:40 Lymph % (Auto) 8.1 % (21.0-51.0) L 11/12/19 13:40 [place] % (Auto) 5.8 % (0.0-13.0) 11/12/19 13:40 Eos % (Auto) 0.0 % (0.9-2.9) L 11/12/19 13:40 Baso % (Auto) 0.2 % (0.2-1.0) 11/12/19 13:40 Neut # (Auto) 12.6 x10^3/uL (2.2-4.8) H 11/12/19 13:40 Lymph # (Auto) 1.2 X10^3/uL (1.3-2.9) L 11/12/19 13:40 [place] # (Auto) 0.9 x10^3/uL (0.3-0.8) H 11/12/19 13:40 Eos # (Auto) 0.0 x10^3/uL (0.0-0.2) 11/12/19 13:40 Baso # (Auto) 0.0 X10^3/uL (0.0-0.1) 11/12/19 13:40 Absolute Nucleated RBC 0.0 /100WBC 11/12/19 13:40 PT 17.7 SECONDS (11.8-14.3) 11/12/19 13:42 INR Target Range - 11/12/19 13:42 INR 1.51 (0.8-1.3) H 11/12/19 13:42 Sodium 134 mmol/L (136-145) L 11/12/19 13:40 Corrected Sodium 142 mmol/L (136-145) 11/12/19 13:40 Potassium 5.0 mmol/L (3.5-5.1) 11/12/19 13:40 Chloride 98 mmol/L (98-107) 11/12/19 13:40 Carbon Dioxide 28.2 mmol/L (21-32) 11/12/19 13:40 BUN 37 mg/dL (7-18) H 11/12/19 13:40 Creatinine 2.10 mg/dL (0.55-1.02) H 11/12/19 13:40 Est GFR (MDRD) Af Amer 29 (>60) L 11/12/19 13:40 Est GFR (MDRD) Non-Af 24 (>60) L 11/12/19 13:40 Glucose 422 mg/dL (65-99) H 11/12/19 13:40 Calcium 9.0 mg/dL (8.5-10.1) 11/12/19 13:40 Corrected Calcium 10.0 mg/dL (8.5-10.1) 11/12/19 13:40 Total Bilirubin 1.10 mg/dL (0.2-1.0) H 11/12/19 13:40 AST 21 Units/L (15-37) 11/12/19 13:40 ALT 7 Units/L (12-78) L 11/12/19 13:40 Alkaline Phosphatase 63 Units/L (46-116) 11/12/19 13:40 Creatine Kinase 49 Units/L (26-192) 11/12/19 13:40 CK-MB (CK-2) < 1.0 ng/mL (0-4.0) 11/12/19 13:40 CK/CKMB % Calc 2.0 % (<4) 11/12/19 13:40 Troponin I < 0.02 ng/mL (0-1.5) 11/12/19 13:40 Total Protein 6.5 g/dL (6.4-8.2) 11/12/19 13:40 Albumin 2.8 g/dL (3.4-5.0) L 11/12/19 13:40 Globulin 3.7 g/dL (2.5-4.5) 11/12/19 13:40 Albumin/Globulin Ratio 0.8 Ratio (1.1-2.1) L 11/12/19 13:40 Specimen Type Catherized urine 11/12/19 14:00 Urine Color Yellow (YELLOW) 11/12/19 14:00 Urine Appearance Hazy (CLEAR) 11/12/19 14:00 Urine pH 5.0 (5.0 - 8.0) 11/12/19 14:00 Ur Specific [place] 1.020 (1.000-1.030) 11/12/19 14:00 Urine Protein 2+ (NEGATIVE) 11/12/19 14:00 Urine Glucose (UA) 4+ (NEGATIVE) 11/12/19 14:00 Urine Ketones 1+ (NEGATIVE) 11/12/19 14:00 Urine Occult Blood 4+ (NEGATIVE) 11/12/19 14:00 Urine Nitrite Positive (NEGATIVE) 11/12/19 14:00 Urine Bilirubin Negative (NEGATIVE) 11/12/19 14:00 Urine Urobilinogen Normal (NORMAL) 11/12/19 14:00 Ur Leukocyte Esterase 1+ (NEGATIVE) 11/12/19 14:00 Urine RBC 10-20 /HPF (0-3) A 11/12/19 14:00 Urine WBC 5-10 /HPF (0-5) A 11/12/19 14:00 Ur Squamous Epith Cells Rare /HPF (NEGATIVE) 11/12/19 14:00 Amorphous Sediment 1+ /HPF (NEGATIVE) 11/12/19 14:00 Urine Bacteria 2+ /HPF (NEGATIVE) 11/12/19 14:00 Ur Culture Indicated? Yes/culture set up 11/12/19 14:00 Opioid - Opioid Risk Tool Age (Gagan box if 16-45): No History of Preadolescent Sexual Abuse: No Total: 0 Total Score Risk Category: Low Risk - Diagnosis Discharge Problem: Dehydration Hyperglycemia due to type 2 diabetes mellitus Qualifiers: Diabetes mellitus remote computer terminal operator insulin use: without remote computer terminal operator use Qualified Code(s): E11.65 - Type 2 diabetes mellitus with hyperglycemia UTI (urinary tract infection) Qualifiers: Urinary tract infection type: acute cystitis Hematuria presence: with hematuria Qualified Code(s): N30.01 - Acute cystitis with hematuria - Discharge Plan Condition: Stable - Follow ups/Referrals Follow ups/Referrals: Ramiro Petit [Primary Care Provider] - 3 days - Instructions
--- NOTE | 2019-11-12 13:33 | CT ---
HISTORY: [Altered mental status]Noncontrast head CT examination.Comparison: Head CT examination dated September 04, 2019.Technique:Multiple axial images of the brain were obtained from the skull base to the vertex without administration of IV contrast.Findings: There is moderate sulcal and cisternal prominence as well as atherosclerotic change in the proximal intracranial carotid and vertebral arteries, which is not out of proportion to the patient's stated age. There is diffuse CT density alteration seen in the periventricular white matter of the high and mid-convexity, which is likely in the setting of small vessel disease and not out of proportion to the patient's stated age. There is mild bilateral ex vacuo ventricular dilatation without evidence for hydrocephalus or herniation syndrome. No midline shift is evident. No acute intraparenchymal hemorrhage or mass can be identified. No extra-axial fluid collections are seen. No alteration in the attenuation of the brain parenchyma can be identified to suggest acute or subacute ischemic change. However, if clinical symptoms are concerning for an acute CVA, then follow-up MRI with DWI sequencing is recommended. The extracranial structures are unremarkable. The paranasal sinuses and mastoids are clear.IMPRESSION:1. [No acute intracranial process, changes, or bleed identified].2. [Age-appropriate intra-cranial changes of advancing age].Electronically signed by: TAMRA ADDISON III (Nov 12, 2019 13:31:56)
--- NOTE | 2019-11-12 13:34 | RAD ---
HISTORYamsSTUDYCHEST, 1 VIEWCOMPARISONNoneTECHNIQUEPortable chestFINDINGSHeart size and mediastinal contours are normal. Lungs are hypoexpanded but clear as are the pleural spaces. No free air or pneumothorax. No acute bony abonormality. Right-sided chest port is in place with the catheter terminating in the SVC. A dual lead cardiac pacemaker is in place. Surgical clips are demonstrated within the right upper quadrantIMPRESSIONNo acute radiographic abnormalities of the chest.Electronically signed by: MIRYAM CHAVARRIA (Nov 12, 2019 13:33:27)
[2019-11-12 14:03] LABS: BASOPHILS % (AUTO) 0.2 % (0.2-1.0); HEMATOCRIT 38.3 % (36.0-47.0); HEMOGLOBIN 12.9 g/dL (12.0-16.0); LYMPHOCYTES # (AUTO) 1.2 X10^3/uL (1.3-2.9); LYMPHOCYTES % (AUTO) 8.1 % (21.0-51.0); MEAN CORPUSCULAR HEMOGLOBIN 33.5 pg (27.0-34.0); MEAN CORPUSCULAR HGB CONC 33.6 g/dL (33.0-35.0); MONOCYTES # (AUTO) 0.9 x10^3/uL (0.3-0.8); MONOCYTES % (AUTO) 5.8 % (0.0-13.0); NEUTROPHILS # (AUTO) 12.6 x10^3/uL (2.2-4.8); NEUTROPHILS % (AUTO) 85.9 % (42.0-75.0); PLATELET COUNT 104 X10^3/uL (150.0-450.0); RED BLOOD COUNT 3.83 X10^6/uL (3.5-5.4); RED CELL DISTRIBUTION WIDTH 14.4 % (11.6-16.5); WHITE BLOOD COUNT 14.7 X10^3/uL (3.6-10.0)
[2019-11-12 14:10] LABS: BILIRUBIN,URINE NEGATIVE (NEGATIVE); BLOOD/HEMOGLOBIN,URINE 4+ (NEGATIVE); GLUCOSE, URINE 4+ (NEGATIVE); KETONES,URINE 1+ (NEGATIVE); LEUKOCYTE ESTERASE ,URINE 1+ (NEGATIVE); NITRITES,URINE POSITIVE (NEGATIVE); PROTEIN,URINE 2+ (NEGATIVE); UROBILINOGEN,URINE NORMAL (NORMAL)
[2019-11-12 14:15] LABS: APPEARANCE,URINE HAZY (CLEAR); COLOR,URINE YELLOW (YELLOW)
[2019-11-12 14:16] LABS: AMORPHOUS SEDIMENT,UR 1+ /HPF (NEGATIVE); BACTERIA,URINE 2+ /HPF (NEGATIVE); SQUAMOUS EPITHELIAL CELL,UR RARE /HPF (NEGATIVE)
[2019-11-12 14:16] LABS: BLOOD UREA NITROGEN 37 mg/dL (7-18); CARBON DIOXIDE 28.2 mmol/L (21-32); CHLORIDE 98 mmol/L (98-107); COR NA(FOR HYPERGLY) 142 mmol/L (136-145); SODIUM 134 mmol/L (136-145); TROPONIN I < 0.02 ng/mL (0-1.5); eGFR NON BLACK RACES 24 (>60)
[2019-11-12 14:20] LABS: ALANINE AMINOTRANSFERASE 7 Units/L (12-78); ALBUMIN 2.8 g/dL (3.4-5.0); ALKALINE PHOSPHATASE 63 Units/L (46-116); ASPARTATE AMINO TRANSFERASE 21 Units/L (15-37); CREATINE KINASE 49 Units/L (26-192); CREATINE KINASE MB < 1.0 ng/mL (0-4.0); TOTAL PROTEIN 6.5 g/dL (6.4-8.2)
[2019-11-12] MEDS ORDERED: LEVAQUIN PREMIX IV 500 MG 500 MG/100 ML BAG IV ONE ×2 (15:39→15:50)
[2019-11-12] MEDS ORDERED: NS 500 ML IV 500 ML IV ONE (15:42)
[2019-11-12] MEDS ORDERED: NS 1000 ML 1,000 ML ONE (15:49)
[2019-11-12] MEDS: HumuLIN R SUBCUT PRN ×2 (17:30→21:30)
[2019-11-12 17:55] VITALS: BMI 27.9
[2019-11-12] MEDS ORDERED: SNACK - Diabetic Appropriate PO SCH (20:00)
[2019-11-12] MEDS: NORCO 7.5/325 MG TAB PO PRN (21:33)
[2019-11-12] MEDS: REQUIP PO PRN (21:34)
[2019-11-13] MEDS: HumuLIN R SUBCUT PRN ×4 (06:14→21:28)
[2019-11-13] MEDS: NORCO 7.5/325 MG TAB PO PRN (06:15)
[2019-11-13 06:30] LABS: ALBUMIN 2.5 g/dL (3.4-5.0); BASOPHILS % (AUTO) 0.2 % (0.2-1.0); CALCIUM 9.1 mg/dL (8.5-10.1); CARBON DIOXIDE 29.2 mmol/L (21-32); COR CA(FOR HYPOALB) 10.3 mg/dL (8.5-10.1); CREATININE 1.75 mg/dL (0.55-1.02); EOSINOPHILS % (AUTO) 0.1 % (0.9-2.9); HEMATOCRIT 38.9 % (36.0-47.0); HEMOGLOBIN 13.1 g/dL (12.0-16.0); LYMPHOCYTES # (AUTO) 0.8 X10^3/uL (1.3-2.9); LYMPHOCYTES % (AUTO) 7.2 % (21.0-51.0); MEAN CORPUSCULAR HEMOGLOBIN 33.3 pg (27.0-34.0); MEAN CORPUSCULAR HGB CONC 33.8 g/dL (33.0-35.0); MEAN CORPUSCULAR VOLUME 98.5 fL (80.0-100.0); MEAN PLATELET VOLUME 8.8 fL (7.4-11.0); MONOCYTES # (AUTO) 0.6 x10^3/uL (0.3-0.8); NEUTROPHILS # (AUTO) 9.7 x10^3/uL (2.2-4.8); NEUTROPHILS % (AUTO) 87.5 % (42.0-75.0); PLATELET COUNT 97 X10^3/uL (150.0-450.0); RED BLOOD COUNT 3.95 X10^6/uL (3.5-5.4); RED CELL DISTRIBUTION WIDTH 14.2 % (11.6-16.5); TOTAL PROTEIN 6.4 g/dL (6.4-8.2); WHITE BLOOD COUNT 11.1 X10^3/uL (3.6-10.0)
[2019-11-13] MEDS ORDERED: TESSALON PERLES PO PRN (10:21)
[2019-11-13] MEDS ORDERED: PATIENT'S HOME MEDICATION (Cholecalciferol (Vitamin D3) [Vitamin D3] 2,000 UNIT) PO SCH (10:30)
--- NOTE | 2019-11-13 10:51 | DR.H&P ---
H&P - History & Physical for Day of: H&P Date: 11/12/19 - Chief Complaint Chief Complaint: WEAKNESS, ALTERED MENTAL STATUS, DIFFICULTY SWALLOWING, HIGH BLOOD GLUCOSE LEVELS - History of Present Illness History of Present Illness: IS A 84 YEAR OLD PATIENT OF OURS WHO REPORTED TO THE ER WITH COMPLAINTS OF WEAKNESS, ALTERED MENTAL STATUS, DIFFICULTY SWALLOWING, HIGH BLOOD GLUCOSE LEVELS. PATIENTS DAUGHTER REPORTS THAT PATIENT HAS HAD DIFFICULTY AMBULATING AND IS NOT EATING. SYMPTOMS STARTED ONE DAY PRIOR TO ARRIVAL. SHE HAS A PMH OF Coronary Artery Disease, Hypertension, Dyslipidemia, Diabetes, Hypothyroidism, Anemia, GERD, Arthritis, Kidney Stones, Sleep Apnea, CHF, and parkinsons. ON ARRIVAL TO THE ER, VITALS WERE 97.7-74-20-92%NC-130/72. LABS WERE OBTAINED. ABNORMAL LAB VALUES INCLUDE THE FOLLOWING: WBC 14.7, INR 1.51, SODIUM 134, BUN 37, CREATININE 2.10, GLUCOSE 422, TOTAL BILI 1.10, ALT 7, ALBUMIN 2.8. A URINALYSIS WAS OBTAINED AND REVEALED: WBC 5-10, RBC 10-20, LEUKOCYTES 1+, BACTERIA 2+. A URINE CULTURE WAS SET UP. EKG OBTAINED AND REVEALED: SINUS RHYTHM WITH HR 71. A CHEST XRAY WAS OBTAINED AND REVEALED: NO ACUTE CARDIOPULMONARY ABNORMALITY OF THE CHEST. A BRAIN CT WAS OBTAINED AND REVEALED: No acute intracranial process, changes, or bleed identified. Age-appropriate intra-cranial changes of advancing age. SHE WAS ADMITTED TO THE HOSPITAL FOR FURTHER EVALUATION AND TREATMENT OF DEHYDRATION, HYPERGLYCEMIA, AND UTI. SHE WAS STARTED ON NORMAL SALINE AT 75ML/HR AND GIVEN A DOSE OF LEVAQUIN IN THE ER. TODAY, WE WILL START ROCEPHIN 1G IV DAILY, HUMULIN R SLIDING SCALE, AND RESUME HER HOME MEDICATIONS. WE WILL CONSULT SPEECH THERAPY DUE TO DYSPHAGIA FOR A SWALLOW EVALUATION. WE WILL ALSO CONSULT PHYSICAL THERAPY. OTHERWISE, WE WILL FOLLOW UP WITH AM LABS AND CONTINUE TO MONITOR. - Past Medical History Past Medical History: Coronary Artery Disease, Hypertension, Dyslipidemia, Diabetes, Hypothyroidism, Anemia, GERD, Arthritis, Kidney Stones, Sleep Apnea, CHF Additional Medical History: Vision Deficit, Parkinson's Disease, Atrial Fibrillation, Bronchitis, Pneumonia, Constipation, Diarrhea, Colon Cancer, Breast Cancer, Urinary Tract Infections, Muscle Weakness, Back Pain, Neuropathy, Previous Blood Transfusion - Past Surgical History Surgical History: Angioplasty/Stents, Bowel Resection, Hysterectomy, Mastectomy, Ortho Surgery Additional Surgical History: Pacemaker, Two Colon Resection's for Colon Cancer, Left Partial Mastectomy for Breast Cancer, Right Chest Wall Port a cath, Left PAU - Family History Family Medical History: Diabetes Mellitus, Cancer, Heart Failure, Hypertension - Social History Does patient currently use any type of tobacco product: No Have you used tobacco products in the last 12 months: No Type of Tobacco Use: None Does any household member use tobacco: No Alcohol Use: None Drug Use: None Prescription drug monitoring program results: PDMP was not reviewed - Medications Home Medications: latex Allergy (Verified 11/12/19 12:10) ADHESIVE TAPE Allergy (Uncoded 11/12/19 12:10) CONTINUE taking the following medications nystatin 5 ml PO QID 11/12/19 [History] - Review of Systems Constitutional: See HPI (AMS), Weakness, Malaise, Other (DECREASED APPETITE) Eyes: Other (DYSPHAGIA ) ENT: No Symptoms Reported Respiratory: No Symptoms Reported Cardiovascular: No Symptoms Reported Gastrointestinal: No Symptoms Reported Genitourinary: No Symptoms Reported Musculoskeletal: No Symptoms Reported Skin: No Symptoms Reported Neurological: Weakness - Physical Exam Vital Signs: Temperature 98.7 F Pulse Rate [Left Brachial] 77 Pulse Rate 74 Respiratory Rate 24 Blood Pressure [Left Calf] 149/72 Blood Pressure [Right Arm] 138/76 Blood Pressure 130/72 O2 Sat by Pulse Oximetry 98 Oriented: Person Eyes: Normal Ear: Normal Nose: Normal Throat: Normal Respiratory: Diminished Throughout Cardiovascular: Normal : Normal Auscultation: Bowel Sounds: Normal Palpation: Normal Tenderness: Suprapubic, Mild. negative: Rebound, Guarding, Rigidity Skin: Decreased Turgur Musculoskeletal: Normal Psychiatric: Normal Mood Description: Calm Affect: Normal Speech Pattern: Inappropriate - Assessment/Plan (1) Dehydration Status: Acute Plan: ADMIT, IV FLUIDS, ROCEPHIN 1G IV DAILY, CONTINUE TO MONITOR (2) Acute UTI Status: Acute Plan: ROCEPHIN 1G IV DAILY, IV FLUIDS, CONTINUE TO MONITOR (3) Hyperglycemia Status: Acute Plan: HUMULIN R SLIDING SCALE, RESUME HOME MEDS, CONTINUE TO MONITOR (4) Dysphagia Qualifiers: Dysphagia type: unspecified Qualified Code(s): R13.10 - Dysphagia, unspecified Status: Acute Plan: SWALLOW EVALUATION - Allergies Allergies/Adverse Reactions: Allergies Allergy/AdvReac Type Severity Reaction Status Date / Time latex Allergy Verified 11/12/19 12:10 ADHESIVE TAPE Allergy Uncoded 11/12/19 12:10
[2019-11-13] MEDS ORDERED: MIRALAX POWDER (1 DOSE 17 G) PO SCH (11:00)
[2019-11-13] MEDS ORDERED: CATAPRES-TTS-2 TD SCH (11:00)
[2019-11-13] MEDS ORDERED: ZESTRIL TAB 20 MG ONE ×2 (11:47→20:48)
[2019-11-13] MEDS: FLONASE NASAL SPRAY ENOSTRIL SCH ×2 (12:00→22:06)
[2019-11-13] MEDS: ROCEPHIN VIAL 1 GRAM 1 G in NS 100 ML IV + SPIKE MINIBAG* 100 ML IV SCH (12:00)
[2019-11-13] MEDS: ELIQUIS PO SCH ×2 (12:01→21:02)
[2019-11-13] MEDS: ZESTRIL TAB 20 MG PO SCH ×2 (12:01→21:01)
[2019-11-13] MEDS: COLACE CAP 100 MG PO SCH ×2 (12:02→21:01)
[2019-11-13] MEDS: AMARYL TAB 4 MG PO SCH (12:02)
[2019-11-13] MEDS: PEPCID TAB 20 MG PO SCH ×2 (12:02→21:03)
[2019-11-13] MEDS: PROTONIX TAB 40 MG PO SCH ×2 (12:03→21:03)
[2019-11-13] MEDS: TOPROL XL PO SCH ×2 (12:03→21:03)
[2019-11-13] MEDS: CELEXA PO SCH (12:03)
[2019-11-13] MEDS: DETROL LA 4 MG CAP EXT REL PO SCH (12:03)
[2019-11-13] MEDS: NORVASC TAB 5 MG PO SCH (12:03)
[2019-11-13] MEDS: K-DUR TAB 20 MEQ PO SCH (12:04)
[2019-11-13] MEDS: SYNTHROID 100 mcg TAB PO SCH (12:04)
[2019-11-13] MEDS: NYSTATIN SUSP PO SCH ×4 (12:04→21:02)
[2019-11-13] MEDS ORDERED: AFLURIA II4 or FLUARIX II4 IM ONE ×2 (12:49→16:50)
[2019-11-13] MEDS: NEURONTIN CAP 300 MG PO SCH ×2 (14:05→21:05)
[2019-11-13] MEDS: MIRAPEX TAB 1 MG PO SCH ×2 (14:05→21:29)
[2019-11-13] MEDS: SINEMET (PLAIN) 25/250 MG PO SCH ×2 (14:05→21:05)
[2019-11-13] MEDS: SNACK - Diabetic Appropriate PO SCH (20:31)
[2019-11-13] MEDS ORDERED: MIRALAX POWDER (255 GRAMS BTL) PO SCH (21:00)
[2019-11-13] MEDS: ARICEPT TAB 10 MG PO SCH (21:01)
[2019-11-13] MEDS: LIPITOR TAB 10 MG PO SCH (21:02)
[2019-11-13] MEDS: SINGULAIR TAB 10 MG PO SCH (21:03)
[2019-11-13] MEDS: ZyrTEC TAB 10 MG PO SCH (21:04)
[2019-11-14 05:49] LABS: BASOPHILS % (AUTO) 0.1 % (0.2-1.0); EOSINOPHILS % (AUTO) 0.3 % (0.9-2.9); HEMATOCRIT 36.8 % (36.0-47.0); HEMOGLOBIN 12.5 g/dL (12.0-16.0); MEAN CORPUSCULAR HEMOGLOBIN 33.8 pg (27.0-34.0); MEAN CORPUSCULAR VOLUME 99.6 fL (80.0-100.0); MEAN PLATELET VOLUME 9.2 fL (7.4-11.0); MONOCYTES # (AUTO) 0.8 x10^3/uL (0.3-0.8); MONOCYTES % (AUTO) 8.5 % (0.0-13.0); NEUTROPHILS % (AUTO) 81.1 % (42.0-75.0); PLATELET COUNT 102 X10^3/uL (150.0-450.0); RED BLOOD COUNT 3.69 X10^6/uL (3.5-5.4); RED CELL DISTRIBUTION WIDTH 14.4 % (11.6-16.5); WHITE BLOOD COUNT 9.9 X10^3/uL (3.6-10.0)
[2019-11-14] MEDS: MIRAPEX TAB 1 MG PO SCH ×3 (05:49→21:00)
[2019-11-14] MEDS: NEURONTIN CAP 300 MG PO SCH ×3 (05:50→21:00)
[2019-11-14] MEDS: SINEMET (PLAIN) 25/250 MG PO SCH ×3 (05:51→21:00)
[2019-11-14 06:00] LABS: ALBUMIN 2.2 g/dL (3.4-5.0); CARBON DIOXIDE 30.2 mmol/L (21-32); COR CA(FOR HYPOALB) 10.4 mg/dL (8.5-10.1); CREATININE 1.5 mg/dL (0.55-1.02); TOTAL PROTEIN 6.1 g/dL (6.4-8.2)
[2019-11-14] MEDS: HumuLIN R SUBCUT PRN ×4 (06:11→20:26)
[2019-11-14] MEDS ORDERED: ZESTRIL TAB 20 MG ONE ×2 (08:34→20:12)
[2019-11-14] MEDS: ROCEPHIN VIAL 1 GRAM 1 G in NS 100 ML IV + SPIKE MINIBAG* 100 ML IV SCH (09:09)
[2019-11-14] MEDS: KLOR-CON PO SCH (09:11)
[2019-11-14] MEDS: AMARYL TAB 4 MG PO SCH (09:12)
[2019-11-14] MEDS: CELEXA PO SCH (09:13)
[2019-11-14] MEDS: DETROL LA 4 MG CAP EXT REL PO SCH (09:13)
[2019-11-14] MEDS: COLACE CAP 100 MG PO SCH ×2 (09:13→20:23)
[2019-11-14] MEDS: FOLTX PO SCH (09:14)
[2019-11-14] MEDS: ELIQUIS PO SCH ×2 (09:14→20:21)
[2019-11-14] MEDS: NORVASC TAB 5 MG PO SCH (09:15)
[2019-11-14] MEDS: NYSTATIN SUSP PO SCH ×4 (09:15→20:24)
[2019-11-14] MEDS: PEPCID TAB 20 MG PO SCH ×2 (09:15→20:22)
[2019-11-14] MEDS: TOPROL XL PO SCH ×2 (09:16→10:51)
[2019-11-14] MEDS: SYNTHROID 100 mcg TAB PO SCH (09:16)
[2019-11-14] MEDS: PROTONIX TAB 40 MG PO SCH ×2 (09:16→20:24)
[2019-11-14] MEDS: ZESTRIL TAB 20 MG PO SCH ×2 (09:17→20:23)
--- NOTE | 2019-11-14 10:04 | PCM.PROG ---
Progress Note - Progress Note for Day of Date of Exam: 11/14/19 - Subjective Subjective: WAS ADMITTED FOR TREATMENT OF UTI, DEHYDRATION, AND HYPERGLYCEMIA. TODAY, SHE IS ALERT AND ORIENTED, LYING IN BED ON MORNING ROUNDS. SHE REPORTS WEAKNESS AND CONTINES WITH DYSPHAGIA. ON EXAMINATION, HEART IS REGULAR IN RATE AND RHYTHM. BILATERAL LUNGS ARE NOTED WITH DIMINISHED LUNG SOUNDS THROUGHOUT. ABDOMEN IS ROUND, SOFT, AND NOTED WITH MILD, SUPRAPUBIC TENDERNESS. HER VITALS THIS MORNING ARE: 97.5-60-16-95%-167/76. LABS WERE OBTAINED. ABNORMAL LAB VALUES INCLUDE THE FOLLOWING: PLT COUNT 102, BUN 28, CREATININE 1.50, GLUCOSE 223, CALCIUM 10.4, ALT 9, TOTAL PROTEIN 6.1, ALBUMIN 2.2. URINE CULTURE REPORTS GROWTH OF E.COLI. IT IS RESISTANT TO THE ROCEPHIN THAT SHE IS CURRENTLY RECEIVING. WE WILL DISCONTINUE THE ROCEPHIN AND START INVANZ 1G IV DAILY. WE WILL DISCONTINUE HER CURRENT DOSE OF METOPROLOL AND INCREASE TO METOPROLOL XL 50MG PO DAILY. OTHERWISE, WE WILL CONTINUE WITH IV FLUIDS AND CURRENT PLAN OF CARE. WE PLAN TO FOLLOW UP WITH AM LABS AND CONTINUE TO MONITOR. - Past Medical Family Social History Past Med/Fam/Surg Hx: No changes since H&P Allergies: Allergies latex Allergy (Verified 11/12/19 12:10) ADHESIVE TAPE Allergy (Uncoded 11/12/19 12:10) - Review of Systems ROS: No change since H&P - Vital Signs and I&O's Vital Signs: Temperature 97.5 F Pulse Rate [Left Brachial] 60 Pulse Rate 74 Respiratory Rate 16 Blood Pressure [Left Calf] 149/72 Blood Pressure [Right Arm] 167/76 Blood Pressure 130/72 O2 Sat by Pulse Oximetry 95 Intake and Output: Intake & Output 11/11/19 11/12/19 11/13/19 11/14/19 11:59 11:59 11:59 11:59 Intake Total 720 / 720 740 / 740 Balance 720 / 720 740 / 740 - Physical Exam Oriented: Normal Eyes: Normal Ear: Normal Nose: Normal Throat: Normal Respiratory: Generalized, Diminished Cardiovascular: Normal : Normal Auscultation: Bowel Sounds: Normal Palpation: Normal Tenderness: Suprapubic, Mild. negative: Rebound, Guarding, Rigidity Skin: Decreased Turgur Musculoskeletal: Normal Psychiatric: Normal Mood Description: Calm Affect: Normal Speech Pattern: Clear - Laboratory and Diagnostics Result Diagrams: 11/14/19 05:28 11/14/19 05:28 Labs: 11/12/19 14:00 Urine,Catheterized Urine Culture - Final Escherichia Coli Laboratory WBC 9.9 X10^3/uL (3.6-10.0) 11/14/19 05:28 RBC 3.69 X10^6/uL (3.5-5.4) 11/14/19 05:28 Hgb 12.5 g/dL (12.0-16.0) 11/14/19 05:28 Hct 36.8 % (36.0-47.0) 11/14/19 05:28 MCV 99.6 fL (80.0-100.0) 11/14/19 05:28 MCH 33.8 pg (27.0-34.0) 11/14/19 05:28 MCHC 34.0 g/dL (33.0-35.0) 11/14/19 05:28 RDW 14.4 % (11.6-16.5) 11/14/19 05:28 Plt Count 102 X10^3/uL (150.0-450.0) L 11/14/19 05:28 MPV 9.2 fL (7.4-11.0) 11/14/19 05:28 Neut % (Auto) 81.1 % (42.0-75.0) H 11/14/19 05:28 Lymph % (Auto) 10.0 % (21.0-51.0) L 11/14/19 05:28 [place] % (Auto) 8.5 % (0.0-13.0) 11/14/19 05:28 Eos % (Auto) 0.3 % (0.9-2.9) L 11/14/19 05:28 Baso % (Auto) 0.1 % (0.2-1.0) L 11/14/19 05:28 Neut # (Auto) 8.0 x10^3/uL (2.2-4.8) H 11/14/19 05:28 Lymph # (Auto) 1.0 X10^3/uL (1.3-2.9) L 11/14/19 05:28 [place] # (Auto) 0.8 x10^3/uL (0.3-0.8) 11/14/19 05:28 Eos # (Auto) 0.0 x10^3/uL (0.0-0.2) 11/14/19 05:28 Baso # (Auto) 0.0 X10^3/uL (0.0-0.1) 11/14/19 05:28 Absolute Nucleated RBC 0.0 /100WBC 11/14/19 05:28 PT 17.7 SECONDS (11.8-14.3) 11/12/19 13:42 INR Target Range - 11/12/19 13:42 INR 1.51 (0.8-1.3) H 11/12/19 13:42 Sodium 137 mmol/L (136-145) 11/14/19 05:28 Corrected Sodium 140 mmol/L (136-145) 11/14/19 05:28 Potassium 4.4 mmol/L (3.5-5.1) 11/14/19 05:28 Chloride 102 mmol/L (98-107) 11/14/19 05:28 Carbon Dioxide 30.2 mmol/L (21-32) 11/14/19 05:28 BUN 28 mg/dL (7-18) H 11/14/19 05:28 Creatinine 1.50 mg/dL (0.55-1.02) H 11/14/19 05:28 Est GFR (MDRD) Af Amer 42 (>60) L 11/14/19 05:28 Est GFR (MDRD) Non-Af 35 (>60) L 11/14/19 05:28 Glucose 223 mg/dL (65-99) H 11/14/19 05:28 POC Glucose (mg/dL) 189 mg/dL (65-99) H 11/14/19 06:04 Calcium 9.0 mg/dL (8.5-10.1) 11/14/19 05:28 Corrected Calcium 10.4 mg/dL (8.5-10.1) H 11/14/19 05:28 Total Bilirubin 0.40 mg/dL (0.2-1.0) 11/14/19 05:28 AST 24 Units/L (15-37) 11/14/19 05:28 ALT 9 Units/L (12-78) L 11/14/19 05:28 Alkaline Phosphatase 65 Units/L (46-116) 11/14/19 05:28 Creatine Kinase 49 Units/L (26-192) 11/12/19 13:40 CK-MB (CK-2) < 1.0 ng/mL (0-4.0) 11/12/19 13:40 CK/CKMB % Calc 2.0 % (<4) 11/12/19 13:40 Troponin I < 0.02 ng/mL (0-1.5) 11/12/19 13:40 Total Protein 6.1 g/dL (6.4-8.2) L 11/14/19 05:28 Albumin 2.2 g/dL (3.4-5.0) L 11/14/19 05:28 Globulin 3.9 g/dL (2.5-4.5) 11/14/19 05:28 Albumin/Globulin Ratio 0.6 Ratio (1.1-2.1) L 11/14/19 05:28 Specimen Type Catherized urine 11/12/19 14:00 Urine Color Yellow (YELLOW) 11/12/19 14:00 Urine Appearance Hazy (CLEAR) 11/12/19 14:00 Urine pH 5.0 (5.0 - 8.0) 11/12/19 14:00 Ur Specific [place] 1.020 (1.000-1.030) 11/12/19 14:00 Urine Protein 2+ (NEGATIVE) 11/12/19 14:00 Urine Glucose (UA) 4+ (NEGATIVE) 11/12/19 14:00 Urine Ketones 1+ (NEGATIVE) 11/12/19 14:00 Urine Occult Blood 4+ (NEGATIVE) 11/12/19 14:00 Urine Nitrite Positive (NEGATIVE) 11/12/19 14:00 Urine Bilirubin Negative (NEGATIVE) 11/12/19 14:00 Urine Urobilinogen Normal (NORMAL) 11/12/19 14:00 Ur Leukocyte Esterase 1+ (NEGATIVE) 11/12/19 14:00 Urine RBC 10-20 /HPF (0-3) A 11/12/19 14:00 Urine WBC 5-10 /HPF (0-5) A 11/12/19 14:00 Ur Squamous Epith Cells Rare /HPF (NEGATIVE) 11/12/19 14:00 Amorphous Sediment 1+ /HPF (NEGATIVE) 11/12/19 14:00 Urine Bacteria 2+ /HPF (NEGATIVE) 11/12/19 14:00 Ur Culture Indicated? Yes/culture set up 11/12/19 14:00 - Plan (1) Dehydration Status: Acute Plan: ADMIT, IV FLUIDS, ROCEPHIN 1G IV DAILY, CONTINUE TO MONITOR (2) Acute UTI Status: Acute Plan: INVANZ 1G IV DAILY, IV FLUIDS, CONTINUE TO MONITOR (3) Hyperglycemia Status: Acute Plan: HUMULIN R SLIDING SCALE, RESUME HOME MEDS, CONTINUE TO MONITOR (4) Dysphagia Status: Acute Qualifiers: Dysphagia type: unspecified Qualified Code(s): R13.10 - Dysphagia, u nspecified Plan: SWALLOW EVALUATION
[2019-11-14] MEDS: INVANZ INJ 1 GM VIAL 1 GM in NS 100 ML IV + SPIKE MINIBAG* 100 ML IV SCH (10:51)
[2019-11-14] MEDS: ULTRAM PO PRN ×2 (10:53→23:25)
[2019-11-14] MEDS: FLONASE NASAL SPRAY ENOSTRIL SCH ×2 (11:01→22:11)
[2019-11-14] MEDS: SINGULAIR TAB 10 MG PO SCH (20:21)
[2019-11-14] MEDS: ZyrTEC TAB 10 MG PO SCH (20:23)
[2019-11-14] MEDS: LIPITOR TAB 10 MG PO SCH (20:23)
[2019-11-14] MEDS: ARICEPT TAB 10 MG PO SCH (20:24)
[2019-11-14] MEDS: REQUIP PO PRN (20:24)
[2019-11-14] MEDS: SNACK - Diabetic Appropriate PO SCH (20:25)
[2019-11-15] MEDS: MIRAPEX TAB 1 MG PO SCH ×3 (05:57→20:59)
[2019-11-15] MEDS: NEURONTIN CAP 300 MG PO SCH ×3 (05:57→20:59)
[2019-11-15] MEDS: SINEMET (PLAIN) 25/250 MG PO SCH ×3 (05:58→21:00)
[2019-11-15 06:08] LABS: BASOPHILS % (AUTO) 0.3 % (0.2-1.0); EOSINOPHILS # (AUTO) 0.1 x10^3/uL (0.0-0.2); EOSINOPHILS % (AUTO) 0.7 % (0.9-2.9); HEMATOCRIT 38.1 % (36.0-47.0); LYMPHOCYTES # (AUTO) 1.5 X10^3/uL (1.3-2.9); LYMPHOCYTES % (AUTO) 15.2 % (21.0-51.0); MEAN CORPUSCULAR HEMOGLOBIN 33.5 pg (27.0-34.0); MEAN CORPUSCULAR HGB CONC 34.1 g/dL (33.0-35.0); MEAN CORPUSCULAR VOLUME 98.3 fL (80.0-100.0); MEAN PLATELET VOLUME 8.7 fL (7.4-11.0); NEUTROPHILS # (AUTO) 7.1 x10^3/uL (2.2-4.8); NEUTROPHILS % (AUTO) 73.8 % (42.0-75.0); PLATELET COUNT 118 X10^3/uL (150.0-450.0); RED BLOOD COUNT 3.88 X10^6/uL (3.5-5.4); WHITE BLOOD COUNT 9.6 X10^3/uL (3.6-10.0)
[2019-11-15 06:17] LABS: ALANINE AMINOTRANSFERASE 8 Units/L (12-78); ALBUMIN 2.2 g/dL (3.4-5.0); ALKALINE PHOSPHATASE 69 Units/L (46-116); ASPARTATE AMINO TRANSFERASE 25 Units/L (15-37); BLOOD UREA NITROGEN 21 mg/dL (7-18); CALCIUM 8.9 mg/dL (8.5-10.1); CARBON DIOXIDE 29.1 mmol/L (21-32); CHLORIDE 102 mmol/L (98-107); COR CA(FOR HYPOALB) 10.3 mg/dL (8.5-10.1); CREATININE 1.34 mg/dL (0.55-1.02); SODIUM 137 mmol/L (136-145); TOTAL PROTEIN 6.3 g/dL (6.4-8.2); eGFR NON BLACK RACES 40 (>60)
[2019-11-15] MEDS ORDERED: ZESTRIL TAB 20 MG ONE ×2 (08:18→20:09)
[2019-11-15] MEDS: ZESTRIL TAB 20 MG PO SCH ×2 (10:06→20:31)
[2019-11-15] MEDS: COLACE CAP 100 MG PO SCH ×2 (10:07→20:32)
[2019-11-15] MEDS: AMARYL TAB 4 MG PO SCH (10:07)
[2019-11-15] MEDS: CELEXA PO SCH (10:07)
[2019-11-15] MEDS: ELIQUIS PO SCH ×2 (10:08→20:32)
[2019-11-15] MEDS: DETROL LA 4 MG CAP EXT REL PO SCH (10:08)
[2019-11-15] MEDS: INVANZ INJ 1 GM VIAL 1 GM in NS 100 ML IV + SPIKE MINIBAG* 100 ML IV SCH (10:10)
[2019-11-15] MEDS: NYSTATIN SUSP PO SCH ×4 (10:13→20:32)
[2019-11-15] MEDS: NORVASC TAB 5 MG PO SCH (10:13)
[2019-11-15] MEDS: PROTONIX TAB 40 MG PO SCH ×2 (10:14→20:33)
[2019-11-15] MEDS: PEPCID TAB 20 MG PO SCH ×2 (10:14→20:33)
[2019-11-15] MEDS: SYNTHROID 100 mcg TAB PO SCH (10:14)
[2019-11-15] MEDS: FOLTX PO SCH (10:15)
[2019-11-15] MEDS: TOPROL XL PO SCH (10:15)
--- NOTE | 2019-11-15 10:41 | PCM.PROG ---
Progress Note - Progress Note for Day of Date of Exam: 11/15/19 - Subjective Subjective: WAS ADMITTED FOR TREATMENT OF E COLI UTI, DEHYDRATION, AND HYPERGLYCEMIA. TODAY, SHE IS ALERT AND ORIENTED, LYING IN BED ON MORNING ROUNDS. SHE REPORTS WEAKNESS TODAY. ON EXAMINATION, HEART IS REGULAR IN RATE AND RHYTHM. BILATERAL LUNGS ARE NOTED WITH DIMINISHED LUNG SOUNDS THROUGHOUT. ABDOMEN IS ROUND, SOFT, AND NOTED WITH MILD, SUPRAPUBIC TENDERNESS. HER VITALS THIS MORNING ARE: 97.8-62-28-100%-175/83. LABS WERE OBTAINED. ABNORMAL LAB VALUES INCLUDE THE FOLLOWING: PLT COUNT 118, BUN 23, CREATININE 1.34, ALT 8, TOTAL PROTEIN 6.3, ALBUMIN 2.2. SPEECH THERAPY EVALUATED PATIENT AND RECOMMENDS A MECHANICAL SOFT DIET WITH CHOPPED MEATS AND THIN LIQUIDS. SHE IS CURRENTLY RECEIVING INVANZ 1G IV DAILY, PROCALAMINE IV, ALBUMIN IV, AND HOME MEDICATIONS WERE RESUMED. WE WILL CONTINUE WITH IV FLUIDS AND CURRENT PLAN OF CARE TODAY. WE WILL ALSO ADD ALBUMIN 25% IV DAILY AND PROCALAMINE AT 40ML/HR. OTHERWISE, WE PLAN TO FOLLOW UP WITH AM LABS AND CONTINUE TO MONITOR. - Past Medical Family Social History Past Med/Fam/Surg Hx: No changes since H&P Allergies: Allergies latex Allergy (Verified 11/12/19 12:10) ADHESIVE TAPE Allergy (Uncoded 11/12/19 12:10) - Review of Systems ROS: No change since H&P - Vital Signs and I&O's Vital Signs: Temperature 97.8 F Pulse Rate [Left Brachial] 62 Pulse Rate 74 Respiratory Rate 28 Blood Pressure [Left Calf] 149/72 Blood Pressure [Right Arm] 175/83 Blood Pressure 130/72 O2 Sat by Pulse Oximetry 100 Intake and Output: Intake & Output 11/12/19 11/13/19 11/14/19 11/15/19 11:59 11:59 11:59 11:59 Intake Total 720 / 720 740 / 740 1200 / 1200 Output Total 0 / 0 Balance 720 / 720 740 / 740 1200 / 1200 - Physical Exam Oriented: Normal Eyes: Normal Ear: Normal Nose: Normal Throat: Normal Respiratory: Generalized, Diminished Cardiovascular: Normal : Normal Auscultation: Bowel Sounds: Normal Palpation: Normal Tenderness: Suprapubic, Mild. negative: Rebound, Guarding, Rigidity Skin: Decreased Turgur Musculoskeletal: Normal Psychiatric: Normal Mood Description: Calm Affect: Normal Speech Pattern: Clear, Appropriate - Laboratory and Diagnostics Result Diagrams: 11/15/19 05:40 11/15/19 05:40 Labs: 11/12/19 14:00 Urine,Catheterized Urine Culture - Final Escherichia Coli Laboratory WBC 9.6 X10^3/uL (3.6-10.0) 11/15/19 05:40 RBC 3.88 X10^6/uL (3.5-5.4) 11/15/19 05:40 Hgb 13.0 g/dL (12.0-16.0) 11/15/19 05:40 Hct 38.1 % (36.0-47.0) 11/15/19 05:40 MCV 98.3 fL (80.0-100.0) 11/15/19 05:40 MCH 33.5 pg (27.0-34.0) 11/15/19 05:40 MCHC 34.1 g/dL (33.0-35.0) 11/15/19 05:40 RDW 14.0 % (11.6-16.5) 11/15/19 05:40 Plt Count 118 X10^3/uL (150.0-450.0) L 11/15/19 05:40 MPV 8.7 fL (7.4-11.0) 11/15/19 05:40 Neut % (Auto) 73.8 % (42.0-75.0) 11/15/19 05:40 Lymph % (Auto) 15.2 % (21.0-51.0) L 11/15/19 05:40 [place] % (Auto) 10.0 % (0.0-13.0) 11/15/19 05:40 Eos % (Auto) 0.7 % (0.9-2.9) L 11/15/19 05:40 Baso % (Auto) 0.3 % (0.2-1.0) 11/15/19 05:40 Neut # (Auto) 7.1 x10^3/uL (2.2-4.8) H 11/15/19 05:40 Lymph # (Auto) 1.5 X10^3/uL (1.3-2.9) 11/15/19 05:40 [place] # (Auto) 1.0 x10^3/uL (0.3-0.8) H 11/15/19 05:40 Eos # (Auto) 0.1 x10^3/uL (0.0-0.2) 11/15/19 05:40 Baso # (Auto) 0.0 X10^3/uL (0.0-0.1) 11/15/19 05:40 Absolute Nucleated RBC 0.0 /100WBC 11/15/19 05:40 PT 17.7 SECONDS (11.8-14.3) 11/12/19 13:42 INR Target Range - 11/12/19 13:42 INR 1.51 (0.8-1.3) H 11/12/19 13:42 Sodium 137 mmol/L (136-145) 11/15/19 05:40 Corrected Sodium TNP 11/15/19 05:40 Potassium 4.0 mmol/L (3.5-5.1) 11/15/19 05:40 Chloride 102 mmol/L (98-107) 11/15/19 05:40 Carbon Dioxide 29.1 mmol/L (21-32) 11/15/19 05:40 BUN 21 mg/dL (7-18) H 11/15/19 05:40 Creatinine 1.34 mg/dL (0.55-1.02) H 11/15/19 05:40 Est GFR (MDRD) Af Amer 48 (>60) L 11/15/19 05:40 Est GFR (MDRD) Non-Af 40 (>60) L 11/15/19 05:40 Glucose 91 mg/dL (65-99) 11/15/19 05:40 POC Glucose (mg/dL) 85 mg/dL (65-99) 11/15/19 05:41 Calcium 8.9 mg/dL (8.5-10.1) 11/15/19 05:40 Corrected Calcium 10.3 mg/dL (8.5-10.1) H 11/15/19 05:40 Total Bilirubin 0.40 mg/dL (0.2-1.0) 11/15/19 05:40 AST 25 Units/L (15-37) 11/15/19 05:40 ALT 8 Units/L (12-78) L 11/15/19 05:40 Alkaline Phosphatase 69 Units/L (46-116) 11/15/19 05:40 Creatine Kinase 49 Units/L (26-192) 11/12/19 13:40 CK-MB (CK-2) < 1.0 ng/mL (0-4.0) 11/12/19 13:40 CK/CKMB % Calc 2.0 % (<4) 11/12/19 13:40 Troponin I < 0.02 ng/mL (0-1.5) 11/12/19 13:40 Total Protein 6.3 g/dL (6.4-8.2) L 11/15/19 05:40 Albumin 2.2 g/dL (3.4-5.0) L 11/15/19 05:40 Globulin 4.1 g/dL (2.5-4.5) 11/15/19 05:40 Albumin/Globulin Ratio 0.5 Ratio (1.1-2.1) L 11/15/19 05:40 Specimen Type Catherized urine 11/12/19 14:00 Urine Color Yellow (YELLOW) 11/12/19 14:00 Urine Appearance Hazy (CLEAR) 11/12/19 14:00 Urine pH 5.0 (5.0 - 8.0) 11/12/19 14:00 Ur Specific [place] 1.020 (1.000-1.030) 11/12/19 14:00 Urine Protein 2+ (NEGATIVE) 11/12/19 14:00 Urine Glucose (UA) 4+ (NEGATIVE) 11/12/19 14:00 Urine Ketones 1+ (NEGATIVE) 11/12/19 14:00 Urine Occult Blood 4+ (NEGATIVE) 11/12/19 14:00 Urine Nitrite Positive (NEGATIVE) 11/12/19 14:00 Urine Bilirubin Negative (NEGATIVE) 11/12/19 14:00 Urine Urobilinogen Normal (NORMAL) 11/12/19 14:00 Ur Leukocyte Esterase 1+ (NEGATIVE) 11/12/19 14:00 Urine RBC 10-20 /HPF (0-3) A 11/12/19 14:00 Urine WBC 5-10 /HPF (0-5) A 11/12/19 14:00 Ur Squamous Epith Cells Rare /HPF (NEGATIVE) 11/12/19 14:00 Amorphous Sediment 1+ /HPF (NEGATIVE) 11/12/19 14:00 Urine Bacteria 2+ /HPF (NEGATIVE) 11/12/19 14:00 Ur Culture Indicated? Yes/culture set up 11/12/19 14:00 - Plan (1) Dehydration Status: Acute Plan: IV FLUIDS, IV PROCAL AND ALBUMIN, INVANZ 1G IV DAILY, CONTINUE TO MONITOR (2) Acute UTI Status: Acute Plan: INVANZ 1G IV DAILY, IV FLUIDS, CONTINUE TO MONITOR (3) Hyperglycemia Status: Acute Plan: HUMULIN R SLIDING SCALE, RESUME HOME MEDS, CONTINUE TO MONITOR (4) Dysphagia Status: Acute Qualifiers: Dysphagia type: unspecified Qualified Code(s): R13.10 - Dysphagia, unspecified Plan: MECHANICAL SOFT DIET WITH CHOPPED MEATS AND THIN LIQUIDS (5) Hypoproteinemia Status: Acute Plan: IV PROCAL AND ALBUMIN, CONTINUE TO MONITOR
[2019-11-15] MEDS: KLOR-CON PO SCH (11:05)
[2019-11-15] MEDS: ALBUMIN HUMAN 25%- 100 ML 100 ML IV SCH (11:14)
[2019-11-15] MEDS: PROCALAMINE 3 % 1,000 ML IV SCH (11:16)
[2019-11-15] MEDS: FLONASE NASAL SPRAY ENOSTRIL SCH ×2 (11:51→22:52)
[2019-11-15] MEDS ORDERED: NS 500 ML IV 500 ML IV ONE (11:54)
[2019-11-15] MEDS: HumuLIN R SUBCUT PRN ×2 (12:05→20:34)
[2019-11-15] MEDS: SNACK - Diabetic Appropriate PO SCH (20:31)
[2019-11-15] MEDS: ZyrTEC TAB 10 MG PO SCH (20:32)
[2019-11-15] MEDS: NORCO 7.5/325 MG TAB PO PRN (20:32)
[2019-11-15] MEDS: ARICEPT TAB 10 MG PO SCH (20:32)
[2019-11-15] MEDS: LIPITOR TAB 10 MG PO SCH (20:32)
[2019-11-15] MEDS: SINGULAIR TAB 10 MG PO SCH (20:33)
[2019-11-16 06:27] LABS: BASOPHILS % (AUTO) 0.4 % (0.2-1.0); EOSINOPHILS # (AUTO) 0.1 x10^3/uL (0.0-0.2); EOSINOPHILS % (AUTO) 1.4 % (0.9-2.9); HEMATOCRIT 34.9 % (36.0-47.0); LYMPHOCYTES # (AUTO) 1.1 X10^3/uL (1.3-2.9); LYMPHOCYTES % (AUTO) 15.3 % (21.0-51.0); MEAN CORPUSCULAR HEMOGLOBIN 33.8 pg (27.0-34.0); MEAN CORPUSCULAR HGB CONC 34.3 g/dL (33.0-35.0); MEAN CORPUSCULAR VOLUME 98.4 fL (80.0-100.0); MEAN PLATELET VOLUME 9.3 fL (7.4-11.0); MONOCYTES # (AUTO) 0.7 x10^3/uL (0.3-0.8); MONOCYTES % (AUTO) 10.1 % (0.0-13.0); NEUTROPHILS # (AUTO) 5.4 x10^3/uL (2.2-4.8); NEUTROPHILS % (AUTO) 72.8 % (42.0-75.0); PLATELET COUNT 135 X10^3/uL (150.0-450.0); RED BLOOD COUNT 3.55 X10^6/uL (3.5-5.4); RED CELL DISTRIBUTION WIDTH 13.9 % (11.6-16.5); WHITE BLOOD COUNT 7.4 X10^3/uL (3.6-10.0)
[2019-11-16] MEDS: SINEMET (PLAIN) 25/250 MG PO SCH ×3 (06:40→21:20)
[2019-11-16] MEDS: MIRAPEX TAB 1 MG PO SCH ×3 (06:40→21:19)
[2019-11-16] MEDS: NEURONTIN CAP 300 MG PO SCH ×3 (06:40→21:20)
[2019-11-16] MEDS: HumuLIN R SUBCUT PRN ×2 (06:41→12:28)
[2019-11-16 06:50] LABS: ALBUMIN 2.5 g/dL (3.4-5.0); CALCIUM 8.7 mg/dL (8.5-10.1); CARBON DIOXIDE 26.3 mmol/L (21-32); COR CA(FOR HYPOALB) 9.9 mg/dL (8.5-10.1); CREATININE 1.18 mg/dL (0.55-1.02); TOTAL PROTEIN 6.2 g/dL (6.4-8.2)
[2019-11-16 07:16] LABS: BAND NEUTROPHILS % 3 % (0-10); PLATELET MORPHOLOGY COMMENT NORMAL (NORMAL)
[2019-11-16] MEDS ORDERED: ZESTRIL TAB 20 MG ONE ×2 (09:17→21:11)
[2019-11-16] MEDS: ALBUMIN HUMAN 25%- 100 ML 100 ML IV SCH (09:55)
[2019-11-16] MEDS: COLACE CAP 100 MG PO SCH ×2 (09:57→21:20)
[2019-11-16] MEDS: CELEXA PO SCH (09:57)
[2019-11-16] MEDS: AMARYL TAB 4 MG PO SCH (09:57)
[2019-11-16] MEDS: DETROL LA 4 MG CAP EXT REL PO SCH (09:58)
[2019-11-16] MEDS: ELIQUIS PO SCH ×2 (09:58→21:20)
[2019-11-16] MEDS: FOLTX PO SCH (09:59)
[2019-11-16] MEDS: INVANZ INJ 1 GM VIAL 1 GM in NS 100 ML IV + SPIKE MINIBAG* 100 ML IV SCH (09:59)
[2019-11-16] MEDS: NORVASC TAB 5 MG PO SCH (09:59)
[2019-11-16] MEDS: NYSTATIN SUSP PO SCH ×4 (10:00→21:19)
[2019-11-16] MEDS: SYNTHROID 100 mcg TAB PO SCH (10:00)
[2019-11-16] MEDS: PROTONIX TAB 40 MG PO SCH ×2 (10:00→21:20)
[2019-11-16] MEDS: PEPCID TAB 20 MG PO SCH ×2 (10:00→21:21)
[2019-11-16] MEDS: TOPROL XL PO SCH (10:01)
[2019-11-16] MEDS: ZESTRIL TAB 20 MG PO SCH ×2 (10:01→21:20)
[2019-11-16] MEDS: FLONASE NASAL SPRAY ENOSTRIL SCH ×2 (11:57→23:28)
[2019-11-16] MEDS: KLOR-CON PO SCH (13:35)
[2019-11-16] MEDS: PROCALAMINE 3 % 1,000 ML IV SCH (21:18)
[2019-11-16] MEDS: SINGULAIR TAB 10 MG PO SCH (21:19)
[2019-11-16] MEDS: ZyrTEC TAB 10 MG PO SCH (21:20)
[2019-11-16] MEDS: ARICEPT TAB 10 MG PO SCH (21:20)
[2019-11-16] MEDS: SNACK - Diabetic Appropriate PO SCH (21:21)
[2019-11-16] MEDS: LIPITOR TAB 10 MG PO SCH (21:21)
[2019-11-17] MEDS: ULTRAM PO PRN (00:06)
[2019-11-17] MEDS: REQUIP PO PRN ×2 (00:06→20:57)
[2019-11-17] MEDS: MIRAPEX TAB 1 MG PO SCH ×3 (05:03→21:00)
[2019-11-17] MEDS: SINEMET (PLAIN) 25/250 MG PO SCH ×3 (05:04→21:01)
[2019-11-17] MEDS: NEURONTIN CAP 300 MG PO SCH ×3 (05:04→21:01)
[2019-11-17 05:27] LABS: BASOPHILS % (AUTO) 0.6 % (0.2-1.0); EOSINOPHILS # (AUTO) 0.1 x10^3/uL (0.0-0.2); EOSINOPHILS % (AUTO) 1.7 % (0.9-2.9); HEMATOCRIT 36.6 % (36.0-47.0); HEMOGLOBIN 12.5 g/dL (12.0-16.0); LYMPHOCYTES # (AUTO) 1.4 X10^3/uL (1.3-2.9); LYMPHOCYTES % (AUTO) 17.7 % (21.0-51.0); MEAN CORPUSCULAR HEMOGLOBIN 33.2 pg (27.0-34.0); MEAN CORPUSCULAR VOLUME 97.6 fL (80.0-100.0); MEAN PLATELET VOLUME 8.5 fL (7.4-11.0); MONOCYTES # (AUTO) 0.8 x10^3/uL (0.3-0.8); MONOCYTES % (AUTO) 10.2 % (0.0-13.0); NEUTROPHILS # (AUTO) 5.4 x10^3/uL (2.2-4.8); NEUTROPHILS % (AUTO) 69.8 % (42.0-75.0); PLATELET COUNT 154 X10^3/uL (150.0-450.0); RED BLOOD COUNT 3.76 X10^6/uL (3.5-5.4); WHITE BLOOD COUNT 7.8 X10^3/uL (3.6-10.0)
[2019-11-17 05:44] LABS: ALBUMIN 2.9 g/dL (3.4-5.0); CALCIUM 9.1 mg/dL (8.5-10.1); CARBON DIOXIDE 25.8 mmol/L (21-32); CREATININE 1.21 mg/dL (0.55-1.02); TOTAL PROTEIN 6.4 g/dL (6.4-8.2)
[2019-11-17 06:03] LABS: BAND NEUTROPHILS % 2 % (0-10); PLATELET MORPHOLOGY COMMENT NORMAL (NORMAL)
[2019-11-17] MEDS ORDERED: ZESTRIL TAB 20 MG ONE ×2 (09:12→19:54)
[2019-11-17] MEDS: ALBUMIN HUMAN 25%- 100 ML 100 ML IV SCH (09:19)
[2019-11-17] MEDS: ZESTRIL TAB 20 MG PO SCH ×2 (09:20→20:58)
[2019-11-17] MEDS: AMARYL TAB 4 MG PO SCH (09:20)
[2019-11-17] MEDS: ELIQUIS PO SCH ×2 (09:20→20:59)
[2019-11-17] MEDS: COLACE CAP 100 MG PO SCH ×2 (09:22→20:58)
[2019-11-17] MEDS: FOLTX PO SCH (09:22)
[2019-11-17] MEDS: DETROL LA 4 MG CAP EXT REL PO SCH (09:22)
[2019-11-17] MEDS: CELEXA PO SCH (09:22)
[2019-11-17] MEDS: NYSTATIN SUSP PO SCH ×4 (09:23→20:58)
[2019-11-17] MEDS: NORVASC TAB 5 MG PO SCH (09:23)
[2019-11-17] MEDS: PROTONIX TAB 40 MG PO SCH ×2 (09:23→20:58)
[2019-11-17] MEDS: INVANZ INJ 1 GM VIAL 1 GM in NS 100 ML IV + SPIKE MINIBAG* 100 ML IV SCH (09:23)
[2019-11-17] MEDS: TOPROL XL PO SCH (09:24)
[2019-11-17] MEDS: SYNTHROID 100 mcg TAB PO SCH (09:24)
[2019-11-17] MEDS: KLOR-CON PO SCH (10:05)
[2019-11-17] MEDS: FLONASE NASAL SPRAY ENOSTRIL SCH ×2 (12:05→22:11)
[2019-11-17] MEDS ORDERED: DULCOLAX SUPPOSITORY 10 MG RECTAL ONE (13:43)
[2019-11-17] MEDS ORDERED: DULCOLAX SUPPOSITORY 10 MG ONE (15:24)
[2019-11-17] MEDS: SINGULAIR TAB 10 MG PO SCH (20:57)
[2019-11-17] MEDS: ARICEPT TAB 10 MG PO SCH (20:58)
[2019-11-17] MEDS: ZyrTEC TAB 10 MG PO SCH (20:58)
[2019-11-17] MEDS: SNACK - Diabetic Appropriate PO SCH (20:59)
[2019-11-17] MEDS: LIPITOR TAB 10 MG PO SCH (21:00)
--- NOTE | 2019-11-17 21:58 | PCM.PROG ---
Progress Note - Progress Note for Day of Date of Exam: 11/16/19 - Subjective Subjective: WAS ADMITTED FOR TREATMENT OF E COLI UTI, DEHYDRATION, AND HYPERGLYCEMIA. TODAY, SHE IS ALERT AND ORIENTED, LYING IN BED ON MORNING ROUNDS. SHE REPORTS WEAKNESS TODAY. ON EXAMINATION, HEART IS REGULAR IN RATE AND RHYTHM. BILATERAL LUNGS ARE NOTED WITH DIMINISHED LUNG SOUNDS THROUGHOUT. ABDOMEN IS ROUND, SOFT, AND NOTED WITH MILD, SUPRAPUBIC TENDERNESS. HER VITALS THIS MORNING ARE: 97.7-66-25-96%-162/79. LABS WERE OBTAINED. ABNORMAL LAB VALUES INCLUDE THE FOLLOWING: HCT 34.9, PLT COUNT 135, SODIUM 134, BUN 20, CREATININE 1.18, GLUCOSE 211, TOTAL PROTEIN 6.2, ALBUMIN 2.5. SHE IS CURRENTLY RECEIVING INVANZ 1G IV DAILY, PROCALAMINE IV, ALBUMIN IV, AND HOME MEDICATIONS WERE RESU MED. WE WILL CONTINUE WITH IV FLUIDS AND CURRENT PLAN OF CARE TODAY. OTHERWISE, WE PLAN TO FOLLOW UP WITH AM LABS AND CONTINUE TO MONITOR. - Past Medical Family Social History Past Med/Fam/Surg Hx: No changes since H&P Allergies: Allergies latex Allergy (Verified 11/12/19 12:10) ADHESIVE TAPE Allergy (Uncoded 11/12/19 12:10) - Review of Systems ROS: No change since H&P - Vital Signs and I&O's Vital Signs: Temperature 97.1 F Pulse Rate [Left Brachial] 66 Pulse Rate 74 Respiratory Rate 20 Blood Pressure [Left Calf] 149/72 Blood Pressure [Right Arm] 163/74 Blood Pressure 130/72 O2 Sat by Pulse Oximetry 94 Intake and Output: Intake & Output 11/15/19 11/16/19 11/17/19 11/18/19 11:59 11:59 11:59 11:59 Intake Total 1200 / 1200 2236 / 2236 2429 / 2429 1103 / 1103 Output Total 0 / 0 Balance 1200 / 1200 2236 / 2236 2429 / 2429 1103 / 1103 - Physical Exam Oriented: Normal Eyes: Normal Ear: Normal Nose: Normal Throat: Normal Respiratory: Generalized, Diminished Cardiovascular: Normal : Normal Auscultation: Bowel Sounds: Normal Tenderness: Suprapubic, Mild. negative: Rebound, Guarding, Rigidity Skin: Decreased Turgur Musculoskeletal: Normal Psychiatric: Normal Mood Description: Calm, Appropriate Affect: Normal Speech Pattern: Inappropriate - Laboratory and Diagnostics Result Diagrams: 11/17/19 05:05 11/17/19 05:05 Labs: 11/12/19 14:00 Urine,Catheterized Urine Culture - Final Escherichia Coli Laboratory WBC 7.8 X10^3/uL (3.6-10.0) 11/17/19 05:05 RBC 3.76 X10^6/uL (3.5-5.4) 11/17/19 05:05 Hgb 12.5 g/dL (12.0-16.0) 11/17/19 05:05 Hct 36.6 % (36.0-47.0) 11/17/19 05:05 MCV 97.6 fL (80.0-100.0) 11/17/19 05:05 MCH 33.2 pg (27.0-34.0) 11/17/19 05:05 MCHC 34.0 g/dL (33.0-35.0) 11/17/19 05:05 RDW 14.0 % (11.6-16.5) 11/17/19 05:05 Plt Count 154 X10^3/uL (150.0-450.0) 11/17/19 05:05 Plt Count Comment Adequate (ADEQUATE) 11/17/19 05:05 MPV 8.5 fL (7.4-11.0) 11/17/19 05:05 Neut % (Auto) 69.8 % (42.0-75.0) 11/17/19 05:05 Lymph % (Auto) 17.7 % (21.0-51.0) L 11/17/19 05:05 [place] % (Auto) 10.2 % (0.0-13.0) 11/17/19 05:05 Eos % (Auto) 1.7 % (0.9-2.9) 11/17/19 05:05 Baso % (Auto) 0.6 % (0.2-1.0) 11/17/19 05:05 Neut # (Auto) 5.4 x10^3/uL (2.2-4.8) H 11/17/19 05:05 Lymph # (Auto) 1.4 X10^3/uL (1.3-2.9) 11/17/19 05:05 [place] # (Auto) 0.8 x10^3/uL (0.3-0.8) 11/17/19 05:05 Eos # (Auto) 0.1 x10^3/uL (0.0-0.2) 11/17/19 05:05 Baso # (Auto) 0.0 X10^3/uL (0.0-0.1) 11/17/19 05:05 Absolute Nucleated RBC 0.0 /100WBC 11/17/19 05:05 Total Counted 100 11/17/19 05:05 Neutrophils % (Manual) 67 % (39-76) 11/17/19 05:05 Band Neutrophils % 2 % (0-10) 11/17/19 05:05 Lymphocytes % (Manual) 17 % (13-43) 11/17/19 05:05 Monocytes % (Manual) 14 % (4-9) H 11/17/19 05:05 Eosinophils % (Manual) 1 % (0-6) 11/16/19 05:27 Plt Morphology Comment Normal (NORMAL) 11/17/19 05:05 RBC Morphology Normal (NORMAL) 11/17/19 05:05 PT 17.7 SECONDS (11.8-14.3) 11/12/19 13:42 INR Target Range - 11/12/19 13:42 INR 1.51 (0.8-1.3) H 11/12/19 13:42 Sodium 133 mmol/L (136-145) L 11/17/19 05:05 Corrected Sodium 133 mmol/L (136-145) L 11/17/19 05:05 Potassium 4.0 mmol/L (3.5-5.1) 11/17/19 05:05 Chloride 99 mmol/L (98-107) 11/17/19 05:05 Carbon Dioxide 25.8 mmol/L (21-32) 11/17/19 05:05 BUN 17 mg/dL (7-18) 11/17/19 05:05 Creatinine 1.21 mg/dL (0.55-1.02) H 11/17/19 05:05 Est GFR (MDRD) Af Amer 54 (>60) L 11/17/19 05:05 Est GFR (MDRD) Non-Af 45 (>60) L 11/17/19 05:05 Glucose 119 mg/dL (65-99) H 11/17/19 05:05 POC Glucose (mg/dL) 133 mg/dL (65-99) H 11/17/19 20:43 Calcium 9.1 mg/dL (8.5-10.1) 11/17/19 05:05 Corrected Calcium 10.0 mg/dL (8.5-10.1) 11/17/19 05:05 Total Bilirubin 0.50 mg/dL (0.2-1.0) 11/17/19 05:05 AST 21 Units/L (15-37) 11/17/19 05:05 ALT 8 Units/L (12-78) L 11/17/19 05:05 Alkaline Phosphatase 52 Units/L (46-116) 11/17/19 05:05 Creatine Kinase 49 Units/L (26-192) 11/12/19 13:40 CK-MB (CK-2) < 1.0 ng/mL (0-4.0) 11/12/19 13:40 CK/CKMB % Calc 2.0 % (<4) 11/12/19 13:40 Troponin I < 0.02 ng/mL (0-1.5) 11/12/19 13:40 Total Protein 6.4 g/dL (6.4-8.2) 11/17/19 05:05 Albumin 2.9 g/dL (3.4-5.0) L 11/17/19 05:05 Globulin 3.5 g/dL (2.5-4.5) 11/17/19 05:05 Albumin/Globulin Ratio 0.8 Ratio (1.1-2.1) L 11/17/19 05:05 Specimen Type Catherized urine 11/12/19 14:00 Urine Color Yellow (YELLOW) 11/12/19 14:00 Urine Appearance Hazy (CLEAR) 11/12/19 14:00 Urine pH 5.0 (5.0 - 8.0) 11/12/19 14:00 Ur Specific [place] 1.020 (1.000-1.030) 11/12/19 14:00 Urine Protein 2+ (NEGATIVE) 11/12/19 14:00 Urine Glucose (UA) 4+ (NEGATIVE) 11/12/19 14:00 Urine Ketones 1+ (NEGATIVE) 11/12/19 14:00 Urine Occult Blood 4+ (NEGATIVE) 11/12/19 14:00 Urine Nitrite Positive (NEGATIVE) 11/12/19 14:00 Urine Bilirubin Negative (NEGATIVE) 11/12/19 14:00 Urine Urobilinogen Normal (NORMAL) 11/12/19 14:00 Ur Leukocyte Esterase 1+ (NEGATIVE) 11/12/19 14:00 Urine RBC 10-20 /HPF (0-3) A 11/12/19 14:00 Urine WBC 5-10 /HPF (0-5) A 11/12/19 14:00 Ur Squamous Epith Cells Rare /HPF (NEGATIVE) 11/12/19 14:00 Amorphous Sediment 1+ /HPF (NEGATIVE) 11/12/19 14:00 Urine Bacteria 2+ /HPF (NEGATIVE) 11/12/19 14:00 Ur Culture Indicated? Yes/culture set up 11/12/19 14:00 - Plan (1) Dehydration Status: Acute Plan: IV FLUIDS, IV PROCAL AND ALBUMIN, INVANZ 1G IV DAILY, CONTINUE TO MONITOR (2) Acute UTI Status: Acute Plan: INVANZ 1G IV DAILY, IV FLUIDS, CONTINUE TO MONITOR (3) Hyperglycemia Status: Acute Plan: HUMULIN R SLIDING SCALE, RESUME HOME MEDS, CONTINUE TO MONITOR (4) Dysphagia Status: Acute Qualifiers: Dysphagia type: unspecified Qualified Code(s): R13.10 - Dysphagia, unspecified Plan: MECHANICAL SOFT DIET WITH CHOPPED MEATS AND THIN LIQUIDS (5) Hypoproteinemia Status: Acute Plan: IV PROCAL AND ALBUMIN, CONTINUE TO MONITOR
[2019-11-18] MEDS: MIRAPEX TAB 1 MG PO SCH ×3 (05:10→21:00)
[2019-11-18] MEDS: NEURONTIN CAP 300 MG PO SCH ×3 (05:10→21:00)
[2019-11-18] MEDS: SINEMET (PLAIN) 25/250 MG PO SCH ×3 (05:11→21:00)
[2019-11-18] MEDS: ULTRAM PO PRN ×2 (05:11→20:40)
[2019-11-18] MEDS: PROCALAMINE 3 % 1,000 ML IV SCH (05:12)
[2019-11-18 06:01] LABS: ALBUMIN 3.3 g/dL (3.4-5.0); BASOPHILS % (AUTO) 0.4 % (0.2-1.0); CALCIUM 9.5 mg/dL (8.5-10.1); CARBON DIOXIDE 27.3 mmol/L (21-32); COR CA(FOR HYPOALB) 10.1 mg/dL (8.5-10.1); CREATININE 1.17 mg/dL (0.55-1.02); EOSINOPHILS # (AUTO) 0.1 x10^3/uL (0.0-0.2); EOSINOPHILS % (AUTO) 1.5 % (0.9-2.9); HEMATOCRIT 36.3 % (36.0-47.0); HEMOGLOBIN 12.6 g/dL (12.0-16.0); LYMPHOCYTES # (AUTO) 1.3 X10^3/uL (1.3-2.9); MEAN CORPUSCULAR HEMOGLOBIN 33.7 pg (27.0-34.0); MEAN CORPUSCULAR HGB CONC 34.7 g/dL (33.0-35.0); MEAN CORPUSCULAR VOLUME 97.1 fL (80.0-100.0); MEAN PLATELET VOLUME 8.5 fL (7.4-11.0); MONOCYTES # (AUTO) 0.8 x10^3/uL (0.3-0.8); MONOCYTES % (AUTO) 10.9 % (0.0-13.0); NEUTROPHILS # (AUTO) 5.4 x10^3/uL (2.2-4.8); NEUTROPHILS % (AUTO) 70.2 % (42.0-75.0); PLATELET COUNT 194 X10^3/uL (150.0-450.0); RED BLOOD COUNT 3.74 X10^6/uL (3.5-5.4); RED CELL DISTRIBUTION WIDTH 14.1 % (11.6-16.5); TOTAL PROTEIN 6.9 g/dL (6.4-8.2); WHITE BLOOD COUNT 7.6 X10^3/uL (3.6-10.0)
[2019-11-18 06:56] LABS: BAND NEUTROPHILS % 1 % (0-10)
[2019-11-18 06:57] LABS: PLATELET MORPHOLOGY COMMENT NORMAL (NORMAL)
[2019-11-18] MEDS ORDERED: ZESTRIL TAB 20 MG ONE ×2 (09:18→19:27)
[2019-11-18] MEDS: ALBUMIN HUMAN 25%- 100 ML 100 ML IV SCH (09:30)
[2019-11-18] MEDS: INVANZ INJ 1 GM VIAL 1 GM in NS 100 ML IV + SPIKE MINIBAG* 100 ML IV SCH (09:31)
[2019-11-18] MEDS: TOPROL XL PO SCH (09:32)
[2019-11-18] MEDS: COLACE CAP 100 MG PO SCH ×2 (09:32→20:38)
[2019-11-18] MEDS: NORVASC TAB 5 MG PO SCH (09:32)
[2019-11-18] MEDS: ZESTRIL TAB 20 MG PO SCH ×2 (09:32→20:38)
[2019-11-18] MEDS: CELEXA PO SCH (09:32)
[2019-11-18] MEDS: DETROL LA 4 MG CAP EXT REL PO SCH (09:32)
[2019-11-18] MEDS: AMARYL TAB 4 MG PO SCH (09:32)
[2019-11-18] MEDS: ELIQUIS PO SCH ×2 (09:33→20:37)
[2019-11-18] MEDS: PEPCID TAB 20 MG PO SCH (09:33)
[2019-11-18] MEDS: SYNTHROID 100 mcg TAB PO SCH (09:34)
[2019-11-18] MEDS: FOLTX PO SCH (09:34)
[2019-11-18] MEDS: NYSTATIN SUSP PO SCH ×4 (09:34→20:40)
[2019-11-18] MEDS: PROTONIX TAB 40 MG PO SCH ×2 (09:34→20:38)
--- NOTE | 2019-11-18 10:35 | PCM.PROG ---
Progress Note - Progress Note for Day of Date of Exam: 11/17/19 - Subjective Subjective: WAS ADMITTED FOR TREATMENT OF E COLI UTI, DEHYDRATION, AND HYPERGLYCEMIA. TODAY, SHE IS ALERT AND ORIENTED, LYING IN BED ON MORNING ROUNDS. SHE REPORTS WEAKNESS TODAY. ON EXAMINATION, HEART IS REGULAR IN RATE AND RHYTHM. BILATERAL LUNGS ARE NOTED WITH DIMINISHED LUNG SOUNDS THROUGHOUT. ABDOMEN IS ROUND, SOFT, AND NOTED WITH MILD, SUPRAPUBIC TENDERNESS. HER VITALS THIS MORNING ARE: 97.3-72-20-94%-170/82. LABS WERE OBTAINED. ABNORMAL LAB VALUES INCLUDE THE FOLLOWING: SODIUM 133, CREATININE 1.21, GLUCOSE 119, ALT 8, ALBUMIN 2.9. SHE IS CURRENTLY RECEIVING INVANZ 1G IV DAILY, PROCALAMINE IV, ALBUMIN IV, AND HOME MEDICATIONS WERE RESUMED. WE WILL CONTINUE WITH IV FLUIDS AND CURRENT PLAN OF CARE TODAY. OTHERWISE, WE PLAN TO FOLLOW UP WITH AM LABS AND CONTINUE TO MONITOR. - Past Medical Family Social History Past Med/Fam/Surg Hx: No changes since H&P Allergies: Allergies latex Allergy (Verified 11/12/19 12:10) ADHESIVE TAPE Allergy (Uncoded 11/12/19 12:10) - Review of Systems ROS: No change since H&P - Vital Signs and I&O's Vital Signs: Temperature 97.5 F Pulse Rate [Left Brachial] 64 Pulse Rate 74 Respiratory Rate 18 Blood Pressure [Left Calf] 149/72 Blood Pressure [Right Arm] 181/86 Blood Pressure 130/72 O2 Sat by Pulse Oximetry 95 Intake and Output: Intake & Output 11/15/19 11/16/19 11/17/19 11/18/19 11:59 11:59 11:59 11:59 Intake Total 1200 / 1200 2236 / 2236 2429 / 2429 2102 Output Total 0 / 0 Balance 1200 / 1200 2236 / 2236 2429 / 2429 2102 - Physical Exam Oriented: Normal Eyes: Normal Ear: Normal Nose: Normal Throat: Normal Respiratory: Generalized, Diminished Cardiovascular: Normal : Normal Auscultation: Bowel Sounds: Normal Palpation: Normal Tenderness: Suprapubic, Mild. negative: Rebound, Guarding, Rigidity Skin: Decreased [place] Musculoskeletal: Normal Psychiatric: Normal Mood Description: Calm, Appropriate Affect: Normal Speech Pattern: Inappropriate - Laboratory and Diagnostics Result Diagrams: 11/18/19 04:35 11/18/19 04:35 Labs: 11/12/19 14:00 Urine,Catheterized Urine Culture - Final Escherichia Coli Laboratory WBC 7.6 X10^3/uL (3.6-10.0) 11/18/19 04:35 RBC 3.74 X10^6/uL (3.5-5.4) 11/18/19 04:35 Hgb 12.6 g/dL (12.0-16.0) 11/18/19 04:35 Hct 36.3 % (36.0-47.0) 11/18/19 04:35 MCV 97.1 fL (80.0-100.0) 11/18/19 04:35 MCH 33.7 pg (27.0-34.0) 11/18/19 04:35 MCHC 34.7 g/dL (33.0-35.0) 11/18/19 04:35 RDW 14.1 % (11.6-16.5) 11/18/19 04:35 Plt Count 194 X10^3/uL (150.0-450.0) 11/18/19 04:35 Plt Count Comment Adequate (ADEQUATE) 11/18/19 04:35 MPV 8.5 fL (7.4-11.0) 11/18/19 04:35 Neut % (Auto) 70.2 % (42.0-75.0) 11/18/19 04:35 Lymph % (Auto) 17.0 % (21.0-51.0) L 11/18/19 04:35 [place] % (Auto) 10.9 % (0.0-13.0) 11/18/19 04:35 Eos % (Auto) 1.5 % (0.9-2.9) 11/18/19 04:35 Baso % (Auto) 0.4 % (0.2-1.0) 11/18/19 04:35 Neut # (Auto) 5.4 x10^3/uL (2.2-4.8) H 11/18/19 04:35 Lymph # (Auto) 1.3 X10^3/uL (1.3-2.9) 11/18/19 04:35 [place] # (Auto) 0.8 x10^3/uL (0.3-0.8) 11/18/19 04:35 Eos # (Auto) 0.1 x10^3/uL (0.0-0.2) 11/18/19 04:35 Baso # (Auto) 0.0 X10^3/uL (0.0-0.1) 11/18/19 04:35 Absolute Nucleated RBC 0.1 /100WBC 11/18/19 04:35 Total Counted 100 11/18/19 04:35 Neutrophils % (Manual) 70 % (39-76) 11/18/19 04:35 Band Neutrophils % 1 % (0-10) 11/18/19 04:35 Lymphocytes % (Manual) 20 % (13-43) 11/18/19 04:35 Monocytes % (Manual) 6 % (4-9) 11/18/19 04:35 Eosinophils % (Manual) 3 % (0-6) 11/18/19 04:35 Plt Morphology Comment Normal (NORMAL) 11/18/19 04:35 RBC Morphology Normal (NORMAL) 11/18/19 04:35 PT 17.7 SECONDS (11.8-14.3) 11/12/19 13:42 INR Target Range - 11/12/19 13:42 INR 1.51 (0.8-1.3) H 11/12/19 13:42 Sodium 134 mmol/L (136-145) L 11/18/19 04:35 Corrected Sodium 135 mmol/L (136-145) L 11/18/19 04:35 Potassium 4.1 mmol/L (3.5-5.1) 11/18/19 04:35 Chloride 99 mmol/L (98-107) 11/18/19 04:35 Carbon Dioxide 27.3 mmol/L (21-32) 11/18/19 04:35 BUN 21 mg/dL (7-18) H 11/18/19 04:35 Creatinine 1.17 mg/dL (0.55-1.02) H 11/18/19 04:35 Est GFR (MDRD) Af Amer 56 (>60) L 11/18/19 04:35 Est GFR (MDRD) Non-Af 47 (>60) L 11/18/19 04:35 Glucose 150 mg/dL (65-99) H 11/18/19 04:35 POC Glucose (mg/dL) 149 mg/dL (65-99) H 11/18/19 05:13 Calcium 9.5 mg/dL (8.5-10.1) 11/18/19 04:35 Corrected Calcium 10.1 mg/dL (8.5-10.1) 11/18/19 04:35 Total Bilirubin 0.50 mg/dL (0.2-1.0) 11/18/19 04:35 AST 21 Units/L (15-37) 11/18/19 04:35 ALT 11 Units/L (12-78) L 11/18/19 04:35 Alkaline Phosphatase 50 Units/L (46-116) 11/18/19 04:35 Creatine Kinase 49 Units/L (26-192) 11/12/19 13:40 CK-MB (CK-2) < 1.0 ng/mL (0-4.0) 11/12/19 13:40 CK/CKMB % Calc 2.0 % (<4) 11/12/19 13:40 Troponin I < 0.02 ng/mL (0-1.5) 11/12/19 13:40 Total Protein 6.9 g/dL (6.4-8.2) 11/18/19 04:35 Albumin 3.3 g/dL (3.4-5.0) L 11/18/19 04:35 Globulin 3.6 g/dL (2.5-4.5) 11/18/19 04:35 Albumin/Globulin Ratio 0.9 Ratio (1.1-2.1) L 11/18/19 04:35 Specimen Type Catherized urine 11/12/19 14:00 Urine Color Yellow (YELLOW) 11/12/19 14:00 Urine Appearance Hazy (CLEAR) 11/12/19 14:00 Urine pH 5.0 (5.0 - 8.0) 11/12/19 14:00 Ur Specific [place] 1.020 (1.000-1.030) 11/12/19 14:00 Urine Protein 2+ (NEGATIVE) 11/12/19 14:00 Urine Glucose (UA) 4+ (NEGATIVE) 11/12/19 14:00 Urine Ketones 1+ (NEGATIVE) 11/12/19 14:00 Urine Occult Blood 4+ (NEGATIVE) 11/12/19 14:00 Urine Nitrite Positive (NEGATIVE) 11/12/19 14:00 Urine Bilirubin Negative (NEGATIVE) 11/12/19 14:00 Urine Urobilinogen Normal (NORMAL) 11/12/19 14:00 Ur Leukocyte Esterase 1+ (NEGATIVE) 11/12/19 14:00 Urine RBC 10-20 /HPF (0-3) A 11/12/19 14:00 Urine WBC 5-10 /HPF (0-5) A 11/12/19 14:00 Ur Squamous Epith Cells Rare /HPF (NEGATIVE) 11/12/19 14:00 Amorphous Sediment 1+ /HPF (NEGATIVE) 11/12/19 14:00 Urine Bacteria 2+ /HPF (NEGATIVE) 11/12/19 14:00 Ur Culture Indicated? Yes/culture set up 11/12/19 14:00 - Plan (1) Dehydration Status: Acute Plan: IV FLUIDS, IV PROCAL AND ALBUMIN, INVANZ 1G IV DAILY, CONTINUE TO MONITOR (2) Acute UTI Status: Acute Plan: INVANZ 1G IV DAILY, IV FLUIDS, CONTINUE TO MONITOR (3) Hyperglycemia Status: Acute Plan: HUMULIN R SLIDING SCALE, RESUME HOME MEDS, CONTINUE TO MONITOR (4) Dysphagia Status: Acute Qualifiers: Dysphagia type: unspecified Qualified Code(s): R13.10 - Dysphagia, unspecified Plan: MECHANICAL SOFT DIET WITH CHOPPED MEATS AND THIN LIQUIDS (5) Hypoproteinemia Status: Acute Plan: IV PROCAL AND ALBUMIN, CONTINUE TO MONITOR
[2019-11-18] MEDS: FLONASE NASAL SPRAY ENOSTRIL SCH ×2 (11:40→22:58)
[2019-11-18] MEDS: KLOR-CON PO SCH (15:27)
[2019-11-18] MEDS: SNACK - Diabetic Appropriate PO SCH (20:37)
[2019-11-18] MEDS: SINGULAIR TAB 10 MG PO SCH (20:38)
[2019-11-18] MEDS: LIPITOR TAB 10 MG PO SCH (20:38)
[2019-11-18] MEDS: ZyrTEC TAB 10 MG PO SCH (20:39)
[2019-11-18] MEDS: ARICEPT TAB 10 MG PO SCH (20:40)
[2019-11-18] MEDS: REQUIP PO PRN (20:41)
--- NOTE | 2019-11-18 20:51 | PCM.PROG ---
Progress Note - Progress Note for Day of Date of Exam: 11/18/19 - Subjective Subjective: WAS ADMITTED FOR TREATMENT OF E COLI UTI, DEHYDRATION, AND HYPERGLYCEMIA. TODAY, SHE IS ALERT AND ORIENTED, LYING IN BED ON MORNING ROUNDS. SHE REPORTS WEAKNESS TODAY. ON EXAMINATION, HEART IS REGULAR IN RATE AND RHYTHM. BILATERAL LUNGS ARE NOTED WITH DIMINISHED LUNG SOUNDS THROUGHOUT. ABDOMEN IS ROUND, SOFT, AND NOTED WITH MILD, SUPRAPUBIC TENDERNESS. HER VITALS THIS MORNING ARE: 97.5-61-20-95%-156/77. LABS WERE OBTAINED. ABNORMAL LAB VALUES INCLUDE THE FOLLOWING: SODIUM 134, BUN 21, CREATININE 1.17, GLUCOSE 150, ALT 11, ALBUMIN 3.3. SHE IS CURRENTLY RECEIVING INVANZ 1G IV DAILY, PROCALAMINE IV, ALBUMIN IV, AND HOME MEDICATIONS WERE RESUMED. WE WILL CONTINUE WITH IV FLUIDS AND CURRENT PLAN OF CARE TODAY. OTHERWISE, WE PLAN TO FOLLOW UP WITH AM LABS AND CONTINUE TO MONITOR. - Past Medical Family Social History Past Med/Fam/Surg Hx: No changes since H&P Allergies: Allergies latex Allergy (Verified 11/12/19 12:10) ADHESIVE TAPE Allergy (Uncoded 11/12/19 12:10) - Review of Systems ROS: No change since H&P - Vital Signs and I&O's Vital Signs: Temperature 98.0 F Pulse Rate [Left Brachial] 67 Pulse Rate 74 Respiratory Rate 18 Blood Pressure [Left Calf] 149/72 Blood Pressure [Right Arm] 163/87 Blood Pressure 130/72 O2 Sat by Pulse Oximetry 97 Intake and Output: Intake & Output 11/16/19 11/17/19 11/18/19 11/19/19 11:59 11:59 11:59 11:59 Intake Total 2236 / 2236 2429 / 2429 2103 / 2103 1442 / 1442 Balance 2236 / 2236 2429 / 2429 2103 / 2103 1442 / 1442 - Physical Exam Oriented: Normal Eyes: Normal Ear: Normal Nose: Normal Throat: Normal Respiratory: Generalized, Diminished Cardiovascular: Normal : Normal Auscultation: Bowel Sounds: Normal Palpation: Normal Tenderness: Suprapubic, Mild. negative: Rebound, Guarding, Rigidity Skin: Normal Musculoskeletal: Normal Psychiatric: Normal Mood Description: Calm, Appropriate Affect: Normal Speech Pattern: Inappropriate - Laboratory and Diagnostics Result Diagrams: 11/18/19 04:35 11/18/19 04:35 Labs: 11/12/19 14:00 Urine,Catheterized Urine Culture - Final Escherichia Coli Laboratory WBC 7.6 X10^3/uL (3.6-10.0) 11/18/19 04:35 RBC 3.74 X10^6/uL (3.5-5.4) 11/18/19 04:35 Hgb 12.6 g/dL (12.0-16.0) 11/18/19 04:35 Hct 36.3 % (36.0-47.0) 11/18/19 04:35 MCV 97.1 fL (80.0-100.0) 11/18/19 04:35 MCH 33.7 pg (27.0-34.0) 11/18/19 04:35 MCHC 34.7 g/dL (33.0-35.0) 11/18/19 04:35 RDW 14.1 % (11.6-16.5) 11/18/19 04:35 Plt Count 194 X10^3/uL (150.0-450.0) 11/18/19 04:35 Plt Count Comment Adequate (ADEQUATE) 11/18/19 04:35 MPV 8.5 fL (7.4-11.0) 11/18/19 04:35 Neut % (Auto) 70.2 % (42.0-75.0) 11/18/19 04:35 Lymph % (Auto) 17.0 % (21.0-51.0) L 11/18/19 04:35 [place] % (Auto) 10.9 % (0.0-13.0) 11/18/19 04:35 Eos % (Auto) 1.5 % (0.9-2.9) 11/18/19 04:35 Baso % (Auto) 0.4 % (0.2-1.0) 11/18/19 04:35 Neut # (Auto) 5.4 x10^3/uL (2.2-4.8) H 11/18/19 04:35 Lymph # (Auto) 1.3 X10^3/uL (1.3-2.9) 11/18/19 04:35 [place] # (Auto) 0.8 x10^3/uL (0.3-0.8) 11/18/19 04:35 Eos # (Auto) 0.1 x10^3/uL (0.0-0.2) 11/18/19 04:35 Baso # (Auto) 0.0 X10^3/uL (0.0-0.1) 11/18/19 04:35 Absolute Nucleated RBC 0.1 /100WBC 11/18/19 04:35 Total Counted 100 11/18/19 04:35 Neutrophils % (Manual) 70 % (39-76) 11/18/19 04:35 Band Neutrophils % 1 % (0-10) 11/18/19 04:35 Lymphocytes % (Manual) 20 % (13-43) 11/18/19 04:35 Monocytes % (Manual) 6 % (4-9) 11/18/19 04:35 Eosinophils % (Manual) 3 % (0-6) 11/18/19 04:35 Plt Morphology Comment Normal (NORMAL) 11/18/19 04:35 RBC Morphology Normal (NORMAL) 11/18/19 04:35 PT 17.7 SECONDS (11.8-14.3) 11/12/19 13:42 INR Target Range - 11/12/19 13:42 INR 1.51 (0.8-1.3) H 11/12/19 13:42 Sodium 134 mmol/L (136-145) L 11/18/19 04:35 Corrected Sodium 135 mmol/L (136-145) L 11/18/19 04:35 Potassium 4.1 mmol/L (3.5-5.1) 11/18/19 04:35 Chloride 99 mmol/L (98-107) 11/18/19 04:35 Carbon Dioxide 27.3 mmol/L (21-32) 11/18/19 04:35 BUN 21 mg/dL (7-18) H 11/18/19 04:35 Creatinine 1.17 mg/dL (0.55-1.02) H 11/18/19 04:35 Est GFR (MDRD) Af Amer 56 (>60) L 11/18/19 04:35 Est GFR (MDRD) Non-Af 47 (>60) L 11/18/19 04:35 Glucose 150 mg/dL (65-99) H 11/18/19 04:35 POC Glucose (mg/dL) 199 mg/dL (65-99) H 11/18/19 20:03 Calcium 9.5 mg/dL (8.5-10.1) 11/18/19 04:35 Corrected Calcium 10.1 mg/dL (8.5-10.1) 11/18/19 04:35 Total Bilirubin 0.50 mg/dL (0.2-1.0) 11/18/19 04:35 AST 21 Units/L (15-37) 11/18/19 04:35 ALT 11 Units/L (12-78) L 11/18/19 04:35 Alkaline Phosphatase 50 Units/L (46-116) 11/18/19 04:35 Creatine Kinase 49 Units/L (26-192) 11/12/19 13:40 CK-MB (CK-2) < 1.0 ng/mL (0-4.0) 11/12/19 13:40 CK/CKMB % Calc 2.0 % (<4) 11/12/19 13:40 Troponin I < 0.02 ng/mL (0-1.5) 11/12/19 13:40 Total Protein 6.9 g/dL (6.4-8.2) 11/18/19 04:35 Albumin 3.3 g/dL (3.4-5.0) L 11/18/19 04:35 Globulin 3.6 g/dL (2.5-4.5) 11/18/19 04:35 Albumin/Globulin Ratio 0.9 Ratio (1.1-2.1) L 11/18/19 04:35 Specimen Type Catherized urine 11/12/19 14:00 Urine Color Yellow (YELLOW) 11/12/19 14:00 Urine Appearance Hazy (CLEAR) 11/12/19 14:00 Urine pH 5.0 (5.0 - 8.0) 11/12/19 14:00 Ur Specific [place] 1.020 (1.000-1.030) 11/12/19 14:00 Urine Protein 2+ (NEGATIVE) 11/12/19 14:00 Urine Glucose (UA) 4+ (NEGATIVE) 11/12/19 14:00 Urine Ketones 1+ (NEGATIVE) 11/12/19 14:00 Urine Occult Blood 4+ (NEGATIVE) 11/12/19 14:00 Urine Nitrite Positive (NEGATIVE) 11/12/19 14:00 Urine Bilirubin Negative (NEGATIVE) 11/12/19 14:00 Urine Urobilinogen Normal (NORMAL) 11/12/19 14:00 Ur Leukocyte Esterase 1+ (NEGATIVE) 11/12/19 14:00 Urine RBC 10-20 /HPF (0-3) A 11/12/19 14:00 Urine WBC 5-10 /HPF (0-5) A 11/12/19 14:00 Ur Squamous Epith Cells Rare /HPF (NEGATIVE) 11/12/19 14:00 Amorphous Sediment 1+ /HPF (NEGATIVE) 11/12/19 14:00 Urine Bacteria 2+ /HPF (NEGATIVE) 11/12/19 14:00 Ur Culture Indicated? Yes/culture set up 11/12/19 14:00 - Plan (1) Dehydration Status: Acute Plan: IV FLUIDS, IV PROCAL AND ALBUMIN, INVANZ 1G IV DAILY, CONTINUE TO MONITOR (2) Acute UTI Status: Acute Plan: INVANZ 1G IV DAILY, IV FLUIDS, CONTINUE TO MONITOR (3) Hyperglycemia Status: Acute Plan: HUMULIN R SLIDING SCALE, RESUME HOME MEDS, CONTINUE TO MONITOR (4) Dysphagia Status: Acute Qualifiers: Dysphagia type: unspecified Qualified Code(s): R13.10 - Dysphagia, unspecified Plan: MECHANICAL SOFT DIET WITH CHOPPED MEATS AND THIN LIQUIDS (5) Hypoproteinemia Status: Acute Plan: IV PROCAL AND ALBUMIN, CONTINUE TO MONITOR
[2019-11-19] MEDS: SINEMET (PLAIN) 25/250 MG PO SCH ×3 (05:08→21:01)
[2019-11-19] MEDS: MIRAPEX TAB 1 MG PO SCH ×3 (05:08→21:07)
[2019-11-19] MEDS: NEURONTIN CAP 300 MG PO SCH ×3 (05:08→21:00)
[2019-11-19 05:10] LABS: BASOPHILS % (AUTO) 0.5 % (0.2-1.0); EOSINOPHILS # (AUTO) 0.1 x10^3/uL (0.0-0.2); EOSINOPHILS % (AUTO) 1.4 % (0.9-2.9); HEMATOCRIT 34.5 % (36.0-47.0); HEMOGLOBIN 11.8 g/dL (12.0-16.0); LYMPHOCYTES # (AUTO) 1.5 X10^3/uL (1.3-2.9); LYMPHOCYTES % (AUTO) 17.6 % (21.0-51.0); MEAN CORPUSCULAR HEMOGLOBIN 33.3 pg (27.0-34.0); MEAN CORPUSCULAR HGB CONC 34.1 g/dL (33.0-35.0); MEAN CORPUSCULAR VOLUME 97.6 fL (80.0-100.0); MEAN PLATELET VOLUME 8.4 fL (7.4-11.0); MONOCYTES # (AUTO) 0.8 x10^3/uL (0.3-0.8); MONOCYTES % (AUTO) 9.8 % (0.0-13.0); NEUTROPHILS # (AUTO) 6.1 x10^3/uL (2.2-4.8); NEUTROPHILS % (AUTO) 70.7 % (42.0-75.0); PLATELET COUNT 209 X10^3/uL (150.0-450.0); RED BLOOD COUNT 3.54 X10^6/uL (3.5-5.4); RED CELL DISTRIBUTION WIDTH 13.8 % (11.6-16.5); WHITE BLOOD COUNT 8.6 X10^3/uL (3.6-10.0)
[2019-11-19 05:26] LABS: ALBUMIN 3.2 g/dL (3.4-5.0); CALCIUM 9.3 mg/dL (8.5-10.1); CARBON DIOXIDE 26.6 mmol/L (21-32); COR CA(FOR HYPOALB) 9.9 mg/dL (8.5-10.1); CREATININE 1.32 mg/dL (0.55-1.02); TOTAL PROTEIN 6.3 g/dL (6.4-8.2)
[2019-11-19 06:09] LABS: BAND NEUTROPHILS % 2 % (0-10); PLATELET MORPHOLOGY COMMENT NORMAL (NORMAL)
[2019-11-19] MEDS ORDERED: ZESTRIL TAB 20 MG ONE ×2 (09:25→19:25)
[2019-11-19] MEDS: ALBUMIN HUMAN 25%- 100 ML 100 ML IV SCH (09:40)
[2019-11-19] MEDS: KLOR-CON PO SCH (09:43)
[2019-11-19] MEDS: SYNTHROID 100 mcg TAB PO SCH (09:44)
[2019-11-19] MEDS: CELEXA PO SCH (09:44)
[2019-11-19] MEDS: AMARYL TAB 4 MG PO SCH (09:44)
[2019-11-19] MEDS: PEPCID TAB 20 MG PO SCH (09:44)
[2019-11-19] MEDS: NORVASC TAB 5 MG PO SCH (09:44)
[2019-11-19] MEDS: PROTONIX TAB 40 MG PO SCH ×2 (09:44→21:01)
[2019-11-19] MEDS: TOPROL XL PO SCH (09:45)
[2019-11-19] MEDS: ZESTRIL TAB 20 MG PO SCH ×2 (09:45→21:01)
[2019-11-19] MEDS: DETROL LA 4 MG CAP EXT REL PO SCH (09:45)
[2019-11-19] MEDS: NYSTATIN SUSP PO SCH ×4 (09:45→21:00)
[2019-11-19] MEDS: FOLTX PO SCH (09:45)
[2019-11-19] MEDS: ELIQUIS PO SCH ×2 (09:45→21:01)
[2019-11-19] MEDS: COLACE CAP 100 MG PO SCH ×2 (09:45→21:01)
[2019-11-19] MEDS: FLONASE NASAL SPRAY ENOSTRIL SCH (11:00)
[2019-11-19] MEDS: INVANZ INJ 1 GM VIAL 1 GM in NS 100 ML IV + SPIKE MINIBAG* 100 ML IV SCH (11:03)
--- NOTE | 2019-11-19 20:34 | PCM.PROG ---
Progress Note - Progress Note for Day of Date of Exam: 11/19/19 - Subjective Subjective: WAS ADMITTED FOR TREATMENT OF E COLI UTI, DEHYDRATION, AND HYPERGLYCEMIA. TODAY, SHE IS ALERT AND ORIENTED, SITTING UP IN CHAIR ON MORNING ROUNDS. SHE CONTINUES WITH WEAKNESS TODAY, BUT REPORTS SLIGHT IMPROVEMENT IN SYMPTOMS. ON EXAMINATION, HEART IS REGULAR IN RATE AND RHYTHM. BILATERAL LUNGS ARE NOTED WITH DIMINISHED LUNG SOUNDS THROUGHOUT. ABDOMEN IS ROUND, SOFT, AND NOTED WITH MILD, SUPRAPUBIC TENDERNESS. HER VITALS THIS MORNING ARE: 97.4-71-20-96%-158/78. LABS WERE OBTAINED. ABNORMAL LAB VALUES INCLUDE THE FOLLOWING: HGB 11.8, HCT 34.5, SODIUM 133, BUN 23, CREATININE 1.32, GLUCOSE 142, ALT 11, ALK PHOS 45, TOTAL PROTEIN 6.3, ALBUMIN 3.2. SHE IS CURRENTLY RECEIVING INVANZ 1G IV DAILY, PROCALAMINE IV, ALBUMIN IV, AND HOME MEDICATIONS WERE RESUMED. WE WILL CONTINUE WITH IV FLUIDS AND CURRENT PLAN OF CARE TODAY. UPON DISCHARGE, WE WILL CONSULT WITH [facility]. OTHERWISE, WE PLAN TO FOLLOW UP WITH AM LABS AND CONTINUE TO MONITOR. - Past Medical Family Social History Past Med/Fam/Surg Hx: No changes since H&P Allergies: Allergies latex Allergy (Verified 11/12/19 12:10) ADHESIVE TAPE Allergy (Uncoded 11/12/19 12:10) - Review of Systems ROS: No change since H&P - Vital Signs and I&O's Vital Signs: Temperature 97.5 F Pulse Rate [Left Brachial] 66 Pulse Rate 74 Respiratory Rate 18 Blood Pressure [Left Calf] 149/72 Blood Pressure [Right Arm] 166/70 Blood Pressure 130/72 O2 Sat by Pulse Oximetry 94 Intake and Output: Intake & Output 11/17/19 11/18/19 11/19/19 11/20/19 11:59 11:59 11:59 11:59 Intake Total 2429 / 2429 2103 / 2103 2692 / 2692 1139 / 1139 Balance 242 / 2422102 / 2102 2691 / 2692 113 / 1139 - Physical Exam Oriented: Normal Eyes: Normal Ear: Normal Nose: Normal Throat: Normal Respiratory: Generalized, Diminished Cardiovascular: Normal : Normal Auscultation: Bowel Sounds: Normal Tenderness: Suprapubic, Mild. negative: Rebound, Guarding, Rigidity Skin: Normal Musculoskeletal: Normal Psychiatric: Normal Mood Description: Calm, Appropriate Affect: Normal Speech Pattern: Inappropriate - Laboratory and Diagnostics Result Diagrams: 11/19/19 04:30 11/19/19 04:30 Labs: 11/12/19 14:00 Urine,Catheterized Urine Culture - Final Escherichia Coli Laboratory WBC 8.6 X10^3/uL (3.6-10.0) 11/19/19 04:30 RBC 3.54 X10^6/uL (3.5-5.4) 11/19/19 04:30 Hgb 11.8 g/dL (12.0-16.0) L 11/19/19 04:30 Hct 34.5 % (36.0-47.0) L 11/19/19 04:30 MCV 97.6 fL (80.0-100.0) 11/19/19 04:30 MCH 33.3 pg (27.0-34.0) 11/19/19 04:30 MCHC 34.1 g/dL (33.0-35.0) 11/19/19 04:30 RDW 13.8 % (11.6-16.5) 11/19/19 04:30 Plt Count 209 X10^3/uL (150.0-450.0) 11/19/19 04:30 Plt Count Comment Adequate (ADEQUATE) 11/19/19 04:30 MPV 8.4 fL (7.4-11.0) 11/19/19 04:30 Neut % (Auto) 70.7 % (42.0-75.0) 11/19/19 04:30 Lymph % (Auto) 17.6 % (21.0-51.0) L 11/19/19 04:30 [place] % (Auto) 9.8 % (0.0-13.0) 11/19/19 04:30 Eos % (Auto) 1.4 % (0.9-2.9) 11/19/19 04:30 Baso % (Auto) 0.5 % (0.2-1.0) 11/19/19 04:30 Neut # (Auto) 6.1 x10^3/uL (2.2-4.8) H 11/19/19 04:30 Lymph # (Auto) 1.5 X10^3/uL (1.3-2.9) 11/19/19 04:30 [place] # (Auto) 0.8 x10^3/uL (0.3-0.8) 11/19/19 04:30 Eos # (Auto) 0.1 x10^3/uL (0.0-0.2) 11/19/19 04:30 Baso # (Auto) 0.0 X10^3/uL (0.0-0.1) 11/19/19 04:30 Absolute Nucleated RBC 0.1 /100WBC 11/19/19 04:30 Total Counted 100 11/19/19 04:30 Neutrophils % (Manual) 59 % (39-76) 11/19/19 04:30 Band Neutrophils % 2 % (0-10) 11/19/19 04:30 Lymphocytes % (Manual) 25 % (13-43) 11/19/19 04:30 Monocytes % (Manual) 13 % (4-9) H 11/19/19 04:30 Eosinophils % (Manual) 1 % (0-6) 11/19/19 04:30 Nucleated RBCs 1 11/19/19 04:30 Plt Morphology Comment Normal (NORMAL) 11/19/19 04:30 RBC Morphology Normal (NORMAL) 11/19/19 04:30 PT 17.7 SECONDS (11.8-14.3) 11/12/19 13:42 INR Target Range - 11/12/19 13:42 INR 1.51 (0.8-1.3) H 11/12/19 13:42 Sodium 133 mmol/L (136-145) L 11/19/19 04:30 Corrected Sodium 134 mmol/L (136-145) L 11/19/19 04:30 Potassium 4.2 mmol/L (3.5-5.1) 11/19/19 04:30 Chloride 100 mmol/L (98-107) 11/19/19 04:30 Carbon Dioxide 26.6 mmol/L (21-32) 11/19/19 04:30 BUN 23 mg/dL (7-18) H 11/19/19 04:30 Creatinine 1.32 mg/dL (0.55-1.02) H 11/19/19 04:30 Est GFR (MDRD) Af Amer 49 (>60) L 11/19/19 04:30 Est GFR (MDRD) Non-Af 41 (>60) L 11/19/19 04:30 Glucose 142 mg/dL (65-99) H 11/19/19 04:30 POC Glucose (mg/dL) 139 mg/dL (65-99) H 11/19/19 20:03 Calcium 9.3 mg/dL (8.5-10.1) 11/19/19 04:30 Corrected Calcium 9.9 mg/dL (8.5-10.1) 11/19/19 04:30 Total Bilirubin 0.40 mg/dL (0.2-1.0) 11/19/19 04:30 AST 16 Units/L (15-37) 11/19/19 04:30 ALT 11 Units/L (12-78) L 11/19/19 04:30 Alkaline Phosphatase 45 Units/L (46-116) L 11/19/19 04:30 Creatine Kinase 49 Units/L (26-192) 11/12/19 13:40 CK-MB (CK-2) < 1.0 ng/mL (0-4.0) 11/12/19 13:40 CK/CKMB % Calc 2.0 % (<4) 11/12/19 13:40 Troponin I < 0.02 ng/mL (0-1.5) 11/12/19 13:40 Total Protein 6.3 g/dL (6.4-8.2) L 11/19/19 04:30 Albumin 3.2 g/dL (3.4-5.0) L 11/19/19 04:30 Globulin 3.1 g/dL (2.5-4.5) 11/19/19 04:30 Albumin/Globulin Ratio 1.0 Ratio (1.1-2.1) L 11/19/19 04:30 Specimen Type Catherized urine 11/12/19 14:00 Urine Color Yellow (YELLOW) 11/12/19 14:00 Urine Appearance Hazy (CLEAR) 11/12/19 14:00 Urine pH 5.0 (5.0 - 8.0) 11/12/19 14:00 Ur Specific [employer] 1.020 (1.000-1.030) 11/12/19 14:00 Urine Protein 2+ (NEGATIVE) 11/12/19 14:00 Urine Glucose (UA) 4+ (NEGATIVE) 11/12/19 14:00 Urine Ketones 1+ (NEGATIVE) 11/12/19 14:00 Urine Occult Blood 4+ (NEGATIVE) 11/12/19 14:00 Urine Nitrite Positive (NEGATIVE) 11/12/19 14:00 Urine Bilirubin Negative (NEGATIVE) 11/12/19 14:00 Urine Urobilinogen Normal (NORMAL) 11/12/19 14:00 Ur Leukocyte Esterase 1+ (NEGATIVE) 11/12/19 14:00 Urine RBC 10-20 /HPF (0-3) A 11/12/19 14:00 Urine WBC 5-10 /HPF (0-5) A 11/12/19 14:00 Ur Squamous Epith Cells Rare /HPF (NEGATIVE) 11/12/19 14:00 Amorphous Sediment 1+ /HPF (NEGATIVE) 11/12/19 14:00 Urine Bacteria 2+ /HPF (NEGATIVE) 11/12/19 14:00 Ur Culture Indicated? Yes/culture set up 11/12/19 14:00 - Plan (1) Dehydration Status: Acute Plan: IV FLUIDS, IV PROCAL AND ALBUMIN, INVANZ 1G IV DAILY, CONTINUE TO MONITOR (2) Acute UTI Status: Acute Plan: INVANZ 1G IV DAILY, IV FLUIDS, CONTINUE TO MONITOR (3) Hyperglycemia Status: Acute Plan: HUMULIN R SLIDING SCALE, RESUME HOME MEDS, CONTINUE TO MONITOR (4) Dysphagia Status: Acute Qualifiers: Dysphagia type: unspecified Qualified Code(s): R13.10 - Dysphagia, unspecified Plan: MECHANICAL SOFT DIET WITH CHOPPED MEATS AND THIN LIQUIDS (5) Hypoproteinemia Status: Acute Plan: IV PROCAL AND ALBUMIN, CONTINUE TO MONITOR
[2019-11-19] MEDS: SNACK - Diabetic Appropriate PO SCH (21:00)
[2019-11-19] MEDS: ZyrTEC TAB 10 MG PO SCH (21:00)
[2019-11-19] MEDS: REQUIP PO PRN (21:00)
[2019-11-19] MEDS: LIPITOR TAB 10 MG PO SCH (21:01)
[2019-11-19] MEDS: ULTRAM PO PRN (21:02)
[2019-11-19] MEDS: SINGULAIR TAB 10 MG PO SCH (21:02)
[2019-11-19] MEDS: ARICEPT TAB 10 MG PO SCH (21:02)
[2019-11-19] MEDS: PROCALAMINE 3 % 1,000 ML IV SCH (21:08)
[2019-11-20] MEDS: FLONASE NASAL SPRAY ENOSTRIL SCH ×2 (00:24→10:04)
[2019-11-20] MEDS: MIRAPEX TAB 1 MG PO SCH (05:11)
[2019-11-20] MEDS: SINEMET (PLAIN) 25/250 MG PO SCH (05:11)
[2019-11-20] MEDS: NEURONTIN CAP 300 MG PO SCH (05:12)
[2019-11-20 06:17] LABS: BASOPHILS % (AUTO) 0.4 % (0.2-1.0); EOSINOPHILS # (AUTO) 0.1 x10^3/uL (0.0-0.2); EOSINOPHILS % (AUTO) 1.2 % (0.9-2.9); HEMATOCRIT 35.3 % (36.0-47.0); HEMOGLOBIN 12.1 g/dL (12.0-16.0); LYMPHOCYTES # (AUTO) 1.7 X10^3/uL (1.3-2.9); LYMPHOCYTES % (AUTO) 17.8 % (21.0-51.0); MEAN CORPUSCULAR HEMOGLOBIN 33.4 pg (27.0-34.0); MEAN CORPUSCULAR HGB CONC 34.3 g/dL (33.0-35.0); MEAN CORPUSCULAR VOLUME 97.3 fL (80.0-100.0); MONOCYTES # (AUTO) 0.6 x10^3/uL (0.3-0.8); MONOCYTES % (AUTO) 6.7 % (0.0-13.0); NEUTROPHILS % (AUTO) 73.9 % (42.0-75.0); PLATELET COUNT 256 X10^3/uL (150.0-450.0); RED BLOOD COUNT 3.63 X10^6/uL (3.5-5.4); RED CELL DISTRIBUTION WIDTH 13.9 % (11.6-16.5); WHITE BLOOD COUNT 9.4 X10^3/uL (3.6-10.0)
[2019-11-20 06:38] LABS: ALANINE AMINOTRANSFERASE 12 Units/L (12-78); ALBUMIN 3.5 g/dL (3.4-5.0); ALKALINE PHOSPHATASE 46 Units/L (46-116); ASPARTATE AMINO TRANSFERASE 20 Units/L (15-37); BLOOD UREA NITROGEN 25 mg/dL (7-18); CALCIUM 9.5 mg/dL (8.5-10.1); CARBON DIOXIDE 25.2 mmol/L (21-32); CHLORIDE 101 mmol/L (98-107); COR NA(FOR HYPERGLY) 137 mmol/L (136-145); CREATININE 1.21 mg/dL (0.55-1.02); SODIUM 136 mmol/L (136-145); TOTAL PROTEIN 6.8 g/dL (6.4-8.2); eGFR NON BLACK RACES 45 (>60)
[2019-11-20 07:29] LABS: BAND NEUTROPHILS % 8 % (0-10); PLATELET MORPHOLOGY COMMENT NORMAL (NORMAL)
[2019-11-20] MEDS ORDERED: ZESTRIL TAB 20 MG ONE (09:42)
[2019-11-20] MEDS: NYSTATIN SUSP PO SCH (09:47)
[2019-11-20] MEDS: ALBUMIN HUMAN 25%- 100 ML 100 ML IV SCH (09:47)
[2019-11-20] MEDS: SYNTHROID 100 mcg TAB PO SCH (09:47)
[2019-11-20] MEDS: COLACE CAP 100 MG PO SCH (09:48)
[2019-11-20] MEDS: FOLTX PO SCH (09:48)
[2019-11-20] MEDS: DETROL LA 4 MG CAP EXT REL PO SCH (09:48)
[2019-11-20] MEDS: ZESTRIL TAB 20 MG PO SCH (09:48)
[2019-11-20] MEDS: AMARYL TAB 4 MG PO SCH (09:52)
[2019-11-20] MEDS: NORVASC TAB 5 MG PO SCH (09:52)
[2019-11-20] MEDS: PROTONIX TAB 40 MG PO SCH (09:52)
[2019-11-20] MEDS: ELIQUIS PO SCH (09:52)
[2019-11-20] MEDS: CELEXA PO SCH (09:52)
[2019-11-20] MEDS: TOPROL XL PO SCH (09:52)
[2019-11-20] MEDS: PEPCID TAB 20 MG PO SCH (10:03)
[2019-11-20] MEDS: KLOR-CON PO SCH ×2 (10:04)
[2019-11-20] MEDS: INVANZ INJ 1 GM VIAL 1 GM in NS 100 ML IV + SPIKE MINIBAG* 100 ML IV SCH (11:22)
[2019-11-20 14:19] VITALS: BP 152/72
== END 2019-11-20 13:10 | disposition hospice, home (50) | DRG 690 ==
LOC: ER 12:02 → ICU 12:02
PROVIDERS: ADMIT Internal Medicine; ATTEND Internal Medicine
DX: R79.1 Abnormal coagulation profile; E86.0 Dehydration; K21.9 Gastro-esophageal reflux disease without esophagitis; E78.49 Other hyperlipidemia; E77.8 Other disorders of glycoprotein metabolism; Z23 Encounter for immunization; R41.82 Altered mental status, unspecified; G47.39 Other sleep apnea; I10 Essential (primary) hypertension; N30.01 Acute cystitis with hematuria; R94.31 Abnormal electrocardiogram [ECG] [EKG]; I25.10 Atherosclerotic heart disease of native coronary artery without angina pectoris; G20 Parkinson's disease; B96.29 Other Escherichia coli [E. coli] as the cause of diseases classified elsewhere; R94.4 Abnormal results of kidney function studies; E03.8 Other specified hypothyroidism; Z74.01 Bed confinement status; R13.11 Dysphagia, oral phase; R26.89 Other abnormalities of gait and mobility; E11.65 Type 2 diabetes mellitus with hyperglycemia
CPT/HCPCS: 36415; 36591; 51701; 70450; 71010; 71045; 80053; 81001; 82550; 82553; 84484; 85025; 85610; 87086; 87088; 87186; 90674; 90686; 92526; 92610; 93005; 96365; 96374; 97110; 97162; 97166; 97530; 97535; 99284; A4216; A4222; B5200; P9047; G0378; J0696; J1335; J1642; J1815; J1956; J7040; J7050

== ENCOUNTER 2021-11-24 14:00 | Inpatient (IN) ==
[2021-11-24 18:25] LABS: ABG ALLEN TEST POS; ABG BASE EXCESS 3.5 mmol/L (-2.0-2.0); ABG HCO3 26.7 mmol/L (22-26)
[2021-11-24] MEDS ORDERED: LEVAQUIN PREMIX IV 500 MG 500 MG/100 ML BAG IV SCH (19:00)
[2021-11-24 19:03] LABS: BASOPHILS % (AUTO) 0.3 % (0.2-1.0); EOSINOPHILS # (AUTO) 0.1 x10^3/uL (0.0-0.2); EOSINOPHILS % (AUTO) 1.7 % (0.9-2.9); HEMATOCRIT 40.9 % (36.0-47.0); HEMOGLOBIN 13.9 g/dL (12.0-16.0); LYMPHOCYTES # (AUTO) 1.8 X10^3/uL (1.3-2.9); LYMPHOCYTES % (AUTO) 26.5 % (21.0-51.0); MEAN CORPUSCULAR HGB CONC 34.1 g/dL (33.0-35.0); MEAN CORPUSCULAR VOLUME 96.8 fL (80.0-100.0); MEAN PLATELET VOLUME 8.9 fL (7.4-11.0); MONOCYTES # (AUTO) 0.5 x10^3/uL (0.3-0.8); MONOCYTES % (AUTO) 7.9 % (0.0-13.0); NEUTROPHILS # (AUTO) 4.4 x10^3/uL (2.2-4.8); NEUTROPHILS % (AUTO) 63.6 % (42.0-75.0); RED BLOOD COUNT 4.22 X10^6/uL (3.5-5.4); RED CELL DISTRIBUTION WIDTH 15.9 % (11.6-16.5); WHITE BLOOD COUNT 6.9 X10^3/uL (3.6-10.0)
[2021-11-24 19:12] LABS: ALBUMIN 3.1 g/dL (3.4-5.0); CALCIUM 8.7 mg/dL (8.5-10.1); CARBON DIOXIDE 26.5 mmol/L (21-32); COR CA(FOR HYPOALB) 9.4 mg/dL (8.5-10.1); CREATININE 1.74 mg/dL (0.55-1.02); TOTAL PROTEIN 7.2 g/dL (6.4-8.2)
[2021-11-24] MEDS ORDERED: REMDESIVIR 200 MG in NS 250 ML IV 250 ML IV ONE (20:00)
[2021-11-24] MEDS: BROVANA IN SCH (20:36)
[2021-11-24] MEDS: PULMICORT NEB TX 0.5 MG NEB SCH (20:36)
[2021-11-24] MEDS: NS 1,000 ML IV 1,000 ML IV SCH (23:00)
[2021-11-24] MEDS: VITAMIN C PO SCH (23:00)
[2021-11-24] MEDS: SOLU-Medrol 40 MG VIAL IVP SCH (23:00)
[2021-11-24] MEDS: LOVENOX INJ 30 MG SYR SC SCH (23:52)
[2021-11-25] MEDS: VITAMIN C PO SCH ×4 (05:00→20:50)
[2021-11-25] MEDS: SOLU-Medrol 40 MG VIAL IVP SCH ×3 (05:00→20:50)
[2021-11-25 05:37] LABS: BASOPHILS % (AUTO) 0.2 % (0.2-1.0); EOSINOPHILS % (AUTO) 0.4 % (0.9-2.9); HEMOGLOBIN 12.6 g/dL (12.0-16.0); LYMPHOCYTES # (AUTO) 1.2 X10^3/uL (1.3-2.9); LYMPHOCYTES % (AUTO) 23.2 % (21.0-51.0); MEAN CORPUSCULAR HEMOGLOBIN 32.7 pg (27.0-34.0); MEAN CORPUSCULAR HGB CONC 34.2 g/dL (33.0-35.0); MEAN CORPUSCULAR VOLUME 95.6 fL (80.0-100.0); MEAN PLATELET VOLUME 9.5 fL (7.4-11.0); MONOCYTES # (AUTO) 0.1 x10^3/uL (0.3-0.8); MONOCYTES % (AUTO) 2.3 % (0.0-13.0); NEUTROPHILS # (AUTO) 3.8 x10^3/uL (2.2-4.8); NEUTROPHILS % (AUTO) 73.9 % (42.0-75.0); RED BLOOD COUNT 3.87 X10^6/uL (3.5-5.4); RED CELL DISTRIBUTION WIDTH 15.4 % (11.6-16.5); WHITE BLOOD COUNT 5.2 X10^3/uL (3.6-10.0)
[2021-11-25 05:41] LABS: ALBUMIN 2.7 g/dL (3.4-5.0); CALCIUM 8.3 mg/dL (8.5-10.1); CARBON DIOXIDE 27.1 mmol/L (21-32); COR CA(FOR HYPOALB) 9.3 mg/dL (8.5-10.1); CREATININE 1.58 mg/dL (0.55-1.02); TOTAL PROTEIN 6.5 g/dL (6.4-8.2)
--- NOTE | 2021-11-25 06:25 | RAD ---
HISTORYCOVID-19STUDYAP [id number]-n ormal heart size with dilated thoracic aorta and no change in position of pacemaker or right IJ port. The lungs remain grossly clear without infiltrate, edema. No pleural fluid is seen.IMPRESSIONNo acute pulmonary or pleural abnormality demonstrated.Electronically signed by: RAMIRO FARAH (Nov 25, 2021 06:24:05)
[2021-11-25] MEDS: BROVANA IN SCH ×2 (08:17→20:45)
[2021-11-25] MEDS: PULMICORT NEB TX 0.5 MG NEB SCH ×2 (08:17→20:45)
[2021-11-25] MEDS ORDERED: LEVAQUIN TAB 500 MG PO SCH (09:00)
[2021-11-25] MEDS: XOPENEX 1.25 MG/3 ML NEBULE NEB SCH ×4 (09:06→20:45)
[2021-11-25] MEDS: LUVOX PO SCH ×2 (09:56→20:50)
[2021-11-25] MEDS ORDERED: NORCO 7.5/325 MG TAB PO PRN (09:57)
[2021-11-25] MEDS: NS 1,000 ML IV 1,000 ML IV SCH ×2 (09:57→23:00)
[2021-11-25] MEDS ORDERED: ZOFRAN TAB 4 MG PO PRN (09:57)
[2021-11-25] MEDS: LEVAQUIN PREMIX IV 250 MG 250 MG/50 ML BAG IV SCH (09:57)
[2021-11-25] MEDS: REMDESIVIR 100 MG in NS 100 ML IV + SPIKE MINIBAG* 120 ML IV SCH (09:57)
[2021-11-25] MEDS: ZINC SULFATE PO SCH (09:57)
--- NOTE | 2021-11-25 10:40 | DR.H&P ---
H&P - History & Physical for Day of: H&P Date: 11/24/21 - Chief Complaint Chief Complaint: COVID-19, SOB, CONGESTION, WEAKNESS - History of Present Illness History of Present Illness: IS A 86 YEAR OLD PATIENT OF OURS. SHE PRESENTED TO THE HOSPITAL A DIRECT ADMISSION FOR TREATMENT OF BRONCHITIS DUE TO COVID-19, GENERALIZED WEAKNESS, AND DEHYDRATION. PATIENT REPORTS TESTING POSITIVE FOR COVID-19 ON 11/19/21. SHE HAS TAKEN CEFDINIR 300MG PO BID AND FLUVOXAMINE 50MG PO BID. SHE DENIES IMPROVEMENT IN SYMPTOMS DESPITE COMPLAINCE WITH MEDS. SHE CONTINUES WITH CONGESTION AND SHORTNESS OF BREATH. HER PMH INCLUDES PARKINSONS, CHF, HYPERLIPIDEMIA, HTN, GERD, ARTHRITIS, DM II, ANXIETY, DEPRESSION. ON ARRIVAL TO THE HOSPITAL, HER VITALS WERE 99.0-61-28-90%-202/93. SHE WAS PLACED ON OXYGEN VIA NASAL CANNULA AT 2 LPM. LABS WERE OBTAINED. WBC 6.9, HGB 13.9, HCT 40.9, D-DIMER 0.61, SODIUM 136, POTASSIUM 3.9, BUN 15, CREATININE 1.74, GLUCOSE 182, CRP 48.00, ALBUMIN 3.1. COVID-19 POSITIVE. INFLUENZA AND RSV NEGATIVE. A CHEST XRAY WAS OBTAINED AND REVEALED: No acute pulmonary or pleural abnormality demonstrated. SHE WAS STARTED ON SUPPLEMENTAL OXYGEN. NS AT 75 ML/HR, SOLU-MEDROL 40MG IV Q8H, LEVAQUIN 250MG IV DAILY, BROVANA INHALER BID, PULMICORT NEB TX BID, XOPENEX NEB TX QID, LOVENOX 30MG SC HS, REMDESIVIR 100MG IV DAILY X 5 DAYS, FLUVOXAMINE 50MG PO BID, IVERMECTIN DAILY X 5 DAYS, IMMUNE SUPPLEMENTS, AND HER HOME MEDICATIONS WERE RESUMED. OTHERWISE, WE PLAN TO FOLLOW UP WITH AM LABS AND CONTINUE TO MONITOR. TIME SPENT ON CLINICAL ASSESSMENT, REVIEWING LABS AND IMAGING, DECISION MAKING, AND DOCUMENTATION WAS GREATER THAN 75 MINUTES. - Past Medical History Past Medical History: Coronary Artery Disease, Hypertension, Dyslipidemia, Diabetes, Hypothyroidism, Anemia, GERD, Arthritis, Kidney Stones, Sleep Apnea, CHF Additional Medical History: Vision Deficit, Parkinson's Disease, Atrial Fibrillation, Bronchitis, Pneumonia, Constipation, Diarrhea, Colon Cancer, Breast Cancer, Urinary Tract Infections, Muscle Weakness, Back Pain, Neuropathy, Previous Blood Transfusion - Past Surgical History Surgical History: Angioplasty/Stents, Bowel Resection, Hysterectomy, Mastectomy, Ortho Surgery Additional Surgical History: Pacemaker, Two Colon Resection's for Colon Cancer, Left Partial Mastectomy for Breast Cancer, Right Chest Wall Port a cath, Left PAU - Family History Family Medical History: [place], Coronary Artery Disease, Hypertension - Social History Alcohol Use: None - Medications Home Medications: latex Allergy (Verified 11/12/19 12:10) sulfamethoxazole [From Bactrim] Adverse Reaction (Verified 11/24/21 18:12) trimethoprim [From Bactrim] Adverse Reaction (Verified 11/24/21 18:12) ADHESIVE TAPE Allergy (Uncoded 11/12/19 12:10) CONTINUE taking the following medications aspirin 81 mg PO QAM 11/25/21 [History] ondansetron HCl [Zofran] 8 mg PO Q8H PRN 11/25/21 [History] - Review of Systems Constitutional: Weakness, Malaise Eyes: No Symptoms Reported ENT: Nose Congestion Respiratory: Shortness of Breath Cardiovascular: No Symptoms Reported Gastrointestinal: No Symptoms Reported Genitourinary: No Symptoms Reported Musculoskeletal: No Symptoms Reported Skin: No Symptoms Reported Neurological: Weakness - Physical Exam Vital Signs: Temperature 100.2 F Pulse Rate 61 Respiratory Rate 17 Blood Pressure [Left Calf] 149/72 Blood Pressure [Right Arm] 162/100 Blood Pressure 142/63 O2 Sat by Pulse Oximetry 96 Oriented: Normal Eyes: Normal Ear: Normal Nose: Normal Throat: Normal Respiratory: Diminished Throughout Cardiovascular: Normal : Normal Auscultation: Bowel Sounds: Normal Palpation: Normal Tenderness: Normal Skin: Normal Musculoskeletal: Normal Psychiatric: Normal Mood Description: Calm Affect: Normal Speech Pattern: Clear - Assessment/Plan (1) Bronchitis due to COVID-19 virus Status: Acute Plan: ADMIT, SUPPLEMENTAL OXYGEN, NS AT 75 ML/HR, SOLU-MEDROL 40MG IV Q8H, LEVAQUIN 250MG IV DAILY, BROVANA INHALER BID, PULMICORT NEB TX BID, XOPENEX NEB TX QID, LOVENOX 30MG SC HS, REMDESIVIR 100MG IV DAILY X 5 DAYS, FLUVOXAMINE 50MG PO BID, IVERMECTIN DAILY X 5 DAYS, IMMUNE SUPPLEMENTS, AND HER HOME MEDICATIONS WERE RESUMED. (2) Dehydration Status: Acute (3) Generalized weakness Status: Acute (4) Diabetes mellitus, type II Qualifiers: Diabetes mellitus transactional paralegal insulin use: with group home use Diabetes mellitus complication status: with hyperglycemia Qualified Code(s): E11.65 - Type 2 diabetes mellitus with hyperglycemia; Z79.4 - longterm (current) use of insulin Status: Chronic (5) Parkinson disease Status: Chronic (6) GERD (gastroesophageal reflux disease) Qualifiers: Esophagitis presence: esophagitis presence not specified Qualified Code(s): K21.9 - Gastro-esophageal reflux disease without esophagitis Status: Chronic (7) HTN (hypertension) Qualifiers: Hypertension type: primary hypertension Qualified Code(s): I10 - Essential (primary) hypertension Status: Chronic (8) Hyperlipidemia Qualifiers: Hyperlipidemia type: mixed hyperlipidemia Status: Chronic (9) CHF (congestive heart failure) Qualifiers: Heart failure type: unspecified Heart failure chronicity: chronic Qualified Code(s): I50.9 - Heart failure, unspecified Status: Chronic - Allergies Allergies/Adverse Reactions: Allergies Allergy/AdvReac Type Severity Reaction Status Date / Time latex Allergy Verified 11/12/19 12:10 sulfamethoxazole AdvReac Verified 11/24/21 18:12 [From Bactrim] trimethoprim [From Bactrim] AdvReac Verified 11/24/21 18:12 ADHESIVE TAPE Allergy Uncoded 11/12/19 12:10
[2021-11-25] MEDS ORDERED: ZESTRIL TAB 20 MG ONE ×2 (10:42→20:24)
[2021-11-25] MEDS: FLONASE NASAL SPRAY ENOSTRIL SCH ×2 (10:46→21:29)
[2021-11-25] MEDS: SYNTHROID 100 mcg TAB PO SCH (10:47)
[2021-11-25] MEDS: CELEXA PO SCH (10:47)
[2021-11-25] MEDS: PEPCID TAB 20 MG PO SCH (10:50)
[2021-11-25] MEDS: ZESTRIL TAB 20 MG PO SCH ×2 (10:50→20:50)
[2021-11-25] MEDS: AMARYL TAB 4 MG PO SCH ×2 (10:50→20:50)
[2021-11-25] MEDS: TOPROL XL PO SCH ×2 (10:51→20:50)
[2021-11-25] MEDS: ASPIRIN EC 81 MG PO SCH (10:52)
[2021-11-25] MEDS: MIRAPEX TAB 1 MG PO SCH ×2 (13:50→21:45)
[2021-11-25] MEDS: NEURONTIN CAP 100 MG PO SCH ×2 (13:51→20:50)
[2021-11-25] MEDS: SINEMET (PLAIN) 25/250 MG PO SCH ×2 (13:52→21:45)
[2021-11-25] MEDS: NORVASC TAB 5 MG PO SCH (20:50)
[2021-11-25] MEDS: LIPITOR TAB 10 MG PO SCH (20:50)
[2021-11-25] MEDS: ARICEPT TAB 10 MG PO SCH (20:50)
[2021-11-25] MEDS: SNACK - Diabetic Appropriate PO SCH (21:00)
[2021-11-25] MEDS: LOVENOX INJ 30 MG SYR SC SCH (21:30)
[2021-11-26] MEDS: VITAMIN C PO SCH ×4 (03:30→21:08)
[2021-11-26] MEDS: NS 1,000 ML IV 1,000 ML IV SCH ×3 (03:30→20:00)
[2021-11-26 05:07] LABS: BASOPHILS % (AUTO) 0.1 % (0.2-1.0); HEMATOCRIT 36.4 % (36.0-47.0); HEMOGLOBIN 12.2 g/dL (12.0-16.0); LYMPHOCYTES # (AUTO) 1.4 X10^3/uL (1.3-2.9); LYMPHOCYTES % (AUTO) 20.2 % (21.0-51.0); MEAN CORPUSCULAR HEMOGLOBIN 32.7 pg (27.0-34.0); MEAN CORPUSCULAR HGB CONC 33.6 g/dL (33.0-35.0); MEAN CORPUSCULAR VOLUME 97.4 fL (80.0-100.0); MEAN PLATELET VOLUME 9.4 fL (7.4-11.0); MONOCYTES # (AUTO) 0.5 x10^3/uL (0.3-0.8); MONOCYTES % (AUTO) 6.7 % (0.0-13.0); RED BLOOD COUNT 3.74 X10^6/uL (3.5-5.4); RED CELL DISTRIBUTION WIDTH 15.7 % (11.6-16.5); WHITE BLOOD COUNT 6.8 X10^3/uL (3.6-10.0)
[2021-11-26] MEDS: SOLU-Medrol 40 MG VIAL IVP SCH ×3 (05:10→21:08)
[2021-11-26] MEDS: SINEMET (PLAIN) 25/250 MG PO SCH ×3 (05:10→21:08)
[2021-11-26] MEDS: MIRAPEX TAB 1 MG PO SCH ×2 (05:10→21:08)
[2021-11-26] MEDS: NEURONTIN CAP 100 MG PO SCH ×3 (05:10→21:08)
[2021-11-26 05:19] LABS: ALBUMIN 2.4 g/dL (3.4-5.0); CALCIUM 8.3 mg/dL (8.5-10.1); CARBON DIOXIDE 24.5 mmol/L (21-32); COR CA(FOR HYPOALB) 9.6 mg/dL (8.5-10.1); CREATININE 1.65 mg/dL (0.55-1.02); TOTAL PROTEIN 5.9 g/dL (6.4-8.2)
[2021-11-26] MEDS: NovoLIN R (or HumuLIN R) SC PRN ×2 (06:45→19:54)
--- NOTE | 2021-11-26 07:34 | RAD ---
HISTORYCOVID+STUDYCHEST, 1 [id number]/22.TECHNIQUEAP view of the chestFINDINGSRight chest wall port with tip in good position. Left chest wall pacemaker in situ. The cardiac silhouette is stably enlarged. Mediastinal contours appear stable. There are mild bilateral mid lung airspace opacities, slightly more conspicuous than prior. No definite pleural effusion or pneumothorax. Soft tissue attenuation limits evaluation.IMPRESSIONBilateral airspace opacities, slightly more conspicuous than prior, consistent with COVID 19.Electronically signed by: Jared Caruso (Nov 26, 2021 07:33:34)
[2021-11-26] MEDS ORDERED: ZESTRIL TAB 20 MG ONE ×3 (08:21→19:37)
[2021-11-26] MEDS: PULMICORT NEB TX 0.5 MG NEB SCH ×2 (08:30→21:01)
[2021-11-26] MEDS: XOPENEX 1.25 MG/3 ML NEBULE NEB SCH ×4 (08:30→21:01)
[2021-11-26] MEDS: BROVANA IN SCH ×2 (08:30→21:01)
[2021-11-26] MEDS: REMDESIVIR 100 MG in NS 100 ML IV + SPIKE MINIBAG* 120 ML IV SCH (08:56)
[2021-11-26] MEDS: FLONASE NASAL SPRAY ENOSTRIL SCH ×2 (08:56→20:05)
[2021-11-26] MEDS: CELEXA PO SCH (08:57)
[2021-11-26] MEDS: AMARYL TAB 4 MG PO SCH ×2 (08:57→20:02)
[2021-11-26] MEDS: TOPROL XL PO SCH ×2 (08:57→20:02)
[2021-11-26] MEDS: ASPIRIN EC 81 MG PO SCH (08:57)
[2021-11-26] MEDS: LEVAQUIN PREMIX IV 250 MG 250 MG/50 ML BAG IV SCH (08:57)
[2021-11-26] MEDS: PEPCID TAB 20 MG PO SCH (08:58)
[2021-11-26] MEDS: SYNTHROID 100 mcg TAB PO SCH (09:00)
[2021-11-26] MEDS: LUVOX PO SCH ×2 (09:00→20:03)
[2021-11-26] MEDS: ZINC SULFATE PO SCH (09:05)
[2021-11-26] MEDS: ZESTRIL TAB 20 MG PO SCH ×2 (09:05→20:03)
--- NOTE | 2021-11-26 09:35 | PCM.PROG ---
Progress Note - Progress Note for Day of Date of Exam: 11/26/21 - Subjective Subjective: WAS ADMITTED FOR TREATMENT OF BRONCHITIS DUE TO COVID-19, GENERALIZED WEAKNESS, AND DEHYDRATION. TODAY, SHE IS ALERT AND ORIENTED, LYING IN BED ON MORNING ROUNDS. SHE CONTINUES WITH COMPLAINTS OF WEAKNESS AND SHORTNESS OF BREATH AT TIMES. SHE DOES ADMIT TO SLIGHT IMPROVEMENT IN SYMPTOMS SINCE ADMISSION. SHE IS CURRENTLY UTILIZING OXYGEN VIA NASAL CANNULA AT 2 LPM. ON EXAMINATION, HEART IS REGULAR IN RATE AND RHYTHM. BILATERAL LUNGS ARE NOTED WITH DIMINISHED LUNG SOUNDS THROUGHOUT. ABDOMEN IS ROUND, SOFT, AND NON-TENDER WITH NORMAL BOWEL SOUNDS NOTED IN ALL QUADRANTS. HER VITALS THIS MORNING ARE: 97.8-69-14-95%-103/61. LABS WERE OBTAINED. WBC 6.8, HGB 12.2, HCT 36.4, BUN 26, CREATININE 1.65, GLUCOSE 275, CALCIUM 8.3, ALT 6, CRP 36.30, BNP 327, TOTAL PROTEIN 5.9, ALBUMIN 2.4. CHEST XRAY OBTAINED AND REVEALED: Bilateral airspace opacities, slightly more conspicuous than prior, consistent with COVID 19. SHE IS CURRENTLY RECEIVING: NS AT 75 ML/HR, SOLU-MEDROL 40MG IV Q8H, LEVAQUIN 250MG IV DAILY, BROVANA INHALER BID, PULMICORT NEB TX BID, XOPENEX NEB TX QID, LOVENOX 30MG SC HS, REMDESIVIR 100MG IV DAILY X 5 DAYS, FLUVOXAMINE 50MG PO BID, IVERMECTIN DAILY X 5 DAYS, IMMUNE SUPPLEMENTS, AND HER HOME MEDICATIONS WERE RESUMED. WE WILL CONTINUE WITH CURRENT PLAN OF CARE TODAY. OTHERWISE, WE PLAN TO FOLLOW UP WITH AM LABS AND CONTINUE TO MONITOR. TIME SPENT ON CLINICAL A SSESSMENT, REVIEWING LABS AND IMAGING, DECISION MAKING, AND DOCUMENTATION WAS GREATER THAN 45 MINUTES. - Past Medical Family Social History Past Med/Fam/Surg Hx: No changes since H&P Allergies: Allergies latex Allergy (Verified 11/12/19 12:10) sulfamethoxazole [From Bactrim] Adverse Reaction (Verified 11/24/21 18:12) trimethoprim [From Bactrim] Adverse Reaction (Verified 11/24/21 18:12) ADHESIVE TAPE Allergy (Uncoded 11/12/19 12:10) - Review of Systems ROS: No change since H&P - Vital Signs and I&O's Vital Signs: Temperature 97.8 F Pulse Rate 69 Respiratory Rate 14 Blood Pressure [Left Calf] 149/72 Blood Pressure [Right Arm] 162/100 Blood Pressure 103/61 O2 Sat by Pulse Oximetry 93 Intake and Output: Intake & Output 11/23/21 11/24/21 11/25/21 11/26/21 11:59 11:59 11:59 11:59 Intake Total 710 / 710 2603 / 2603 Balance 710 / 710 2603 / 2603 - Physical Exam Oriented: Normal Eyes: Normal Ear: Normal Nose: Normal Throat: Normal Respiratory: Generalized, Diminished Cardiovascular: Normal : Normal Auscultation: Bowel Sounds: Normal Palpation: Normal Tenderness: Normal Skin: Normal Musculoskeletal: Normal Psychiatric: Normal Mood Description: Calm Affect: Normal Speech Pattern: Appropriate - Laboratory and Diagnostics Result Diagrams: 11/26/21 04:34 11/26/21 04:34 Labs: Laboratory WBC 6.8 X10^3/uL (3.6-10.0) 11/26/21 04:34 RBC 3.74 X10^6/uL (3.5-5.4) 11/26/21 04:34 Hgb 12.2 g/dL (12.0-16.0) 11/26/21 04:34 Hct 36.4 % (36.0-47.0) 11/26/21 04:34 MCV 97.4 fL (80.0-100.0) 11/26/21 04:34 MCH 32.7 pg (27.0-34.0) 11/26/21 04:34 MCHC 33.6 g/dL (33.0-35.0) 11/26/21 04:34 RDW 15.7 % (11.6-16.5) 11/26/21 04:34 Plt Count 156 X10^3/uL (150.0-450.0) 11/26/21 04:34 MPV 9.4 fL (7.4-11.0) 11/26/21 04:34 Neut % (Auto) 73.0 % (42.0-75.0) 11/26/21 04:34 Lymph % (Auto) 20.2 % (21.0-51.0) L 11/26/21 04:34 [place]olls % (Auto) 6.7 % (0.0-13.0) 11/26/21 04:34 Eos % (Auto) 0.0 % (0.9-2.9) L 11/26/21 04:34 Baso % (Auto) 0.1 % (0.2-1.0) L 11/26/21 04:34 Neut # (Auto) 5.0 x10^3/uL (2.2-4.8) H 11/26/21 04:34 Lymph # (Auto) 1.4 X10^3/uL (1.3-2.9) 11/26/21 04:34 [place]olls # (Auto) 0.5 x10^3/uL (0.3-0.8) 11/26/21 04:34 Eos # (Auto) 0.0 x10^3/uL (0.0-0.2) 11/26/21 04:34 Baso # (Auto) 0.0 X10^3/uL (0.0-0.1) 11/26/21 04:34 Absolute Nucleated RBC 0.1 /100WBC 11/26/21 04:34 D-Dimer 0.61 ug/ml (0.0-0.57) H* 11/24/21 18:48 Sample Site Rr 11/24/21 18:15 ABG pH 7.490 (7.35-7.45) H 11/24/21 18:15 ABG pCO2 35.0 mmHg (35.0-45.0) 11/24/21 18:15 ABG pO2 66.0 mmHg (80.0-100.0) L 11/24/21 18:15 ABG HCO3 26.7 mmol/L (22-26) H 11/24/21 18:15 ABG O2 Saturation 94.0 % (90-100) 11/24/21 18:15 ABG Base Excess 3.5 mmol/L (-2.0-2.0) H 11/24/21 18:15 Scott Test Pos 11/24/21 18:15 A-a Gradient 90.0 mmHg 11/24/21 18:15 FiO2 28.0 11/24/21 18:15 Blood Gas Comments Pt radha well, hw, wrapper sorter 11/24/21 18:15 Sodium 140 mmol/L (136-145) 11/26/21 04:34 Corrected Sodium 144 mmol/L (136-145) 11/26/21 04:34 Potassium 4.1 mmol/L (3.5-5.1) 11/26/21 04:34 Chloride 107 mmol/L (98-107) 11/26/21 04:34 Carbon Dioxide 24.5 mmol/L (21-32) 11/26/21 04:34 BUN 26 mg/dL (7-18) H 11/26/21 04:34 Creatinine 1.65 mg/dL (0.55-1.02) H 11/26/21 04:34 Est GFR (MDRD) Af Amer 38 (>60) L 11/26/21 04:34 Est GFR (MDRD) Non-Af 31 (>60) L 11/26/21 04:34 Glucose 275 mg/dL (65-99) H 11/26/21 04:34 POC Glucose (mg/dL) 315 mg/dL (65-99) H 11/25/21 21:38 Calcium 8.3 mg/dL (8.5-10.1) L 11/26/21 04:34 Corrected Calcium 9.6 mg/dL (8.5-10.1) 11/26/21 04:34 Total Bilirubin 0.40 mg/dL (0.2-1.0) 11/26/21 04:34 AST 23 Units/L (15-37) 11/26/21 04:34 ALT 6 Units/L (12-78) L 11/26/21 04:34 Alkaline Phosphatase 62 Units/L (46-116) 11/26/21 04:34 C-Reactive Protein 36.30 mg/L (0-3.0) H 11/26/21 04:34 B-Natriuretic Peptide 327 pg/mL (0-79) H 11/26/21 04:34 Total Protein 5.9 g/dL (6.4-8.2) L 11/26/21 04:34 Albumin 2.4 g/dL (3.4-5.0) L 11/26/21 04:34 Globulin 3.5 g/dL (2.5-4.5) 11/26/21 04:34 Albumin/Globulin Ratio 0.7 Ratio (1.1-2.1) L 11/26/21 04:34 SARS-CoV-2 (PCR) Positive (NEGATIVE) A 11/24/21 15:58 Influenza Type A (PCR) Negative (NEGATIVE) 11/24/21 15:58 Influenza Type B (PCR) Negative (NEGATIVE) 11/24/21 15:58 RSV (PCR) Negative (NEGATIVE) 11/24/21 15:58 - Plan (1) Bronchitis due to COVID-19 virus Status: Acute Plan: SUPPLEMENTAL OXYGEN, NS AT 75 ML/HR, SOLU-MEDROL 40MG IV Q8H, LEVAQUIN 250MG IV DAILY, BROVANA INHALER BID, PULMICORT NEB TX BID, XOPENEX NEB TX QID, LOVENOX 30MG SC HS, REMDESIVIR 100MG IV DAILY X 5 DAYS, FLUVOXAMINE 50MG PO BID, IVERMECTIN DAILY X 5 DAYS, IMMUNE SUPPLEMENTS, AND HER HOME MEDICATIONS WERE RE SUMED. (2) Dehydration Status: Acute (3) Generalized weakness Status: Acute (4) Diabetes mellitus, type II Status: Chronic Qualifiers: Diabetes mellitus rat exterminator insulin use: with rat exterminator use Diabetes mellitus complication status: with hyperglycemia Qualified Code(s): E11.65 - Type 2 diabetes mellitus with hyperglycemia; Z79.4 - watermaster (current) use of insulin (5) Parkinson disease Status: Chronic (6) GERD (gastroesophageal reflux disease) Status: Chronic Qualifiers: Esophagitis presence: esophagitis presence not specified Qualified Code(s): K21.9 - Gastro-esophageal reflux disease without esophagitis (7) HTN (hypertension) Status: Chronic Qualifiers: Hypertension type: primary hypertension Qualified Code(s): I10 - Essential (primary) hypertension (8) Hyperlipidemia Status: Chronic Qualifiers: Hyperlipidemia type: mixed hyperlipidemia (9) CHF (congestive heart failure) Status: Chronic Qualifiers: Heart failure type: unspecified Heart failure chronicity: chronic Qualified Code(s): I50.9 - Heart failure, unspecified
[2021-11-26] MEDS: LOVENOX INJ 30 MG SYR SC SCH (20:01)
[2021-11-26] MEDS: LIPITOR TAB 10 MG PO SCH (20:02)
[2021-11-26] MEDS: ARICEPT TAB 10 MG PO SCH (20:02)
[2021-11-26] MEDS: NORVASC TAB 5 MG PO SCH (20:02)
[2021-11-26] MEDS: SNACK - Diabetic Appropriate PO SCH (20:04)
[2021-11-27] MEDS: NS 1,000 ML IV 1,000 ML IV SCH (03:02)
[2021-11-27] MEDS: VITAMIN C PO SCH ×2 (04:05→09:08)
[2021-11-27 05:37] LABS: BASOPHILS % (AUTO) 0.1 % (0.2-1.0); HEMATOCRIT 36.6 % (36.0-47.0); HEMOGLOBIN 12.4 g/dL (12.0-16.0); LYMPHOCYTES # (AUTO) 1.1 X10^3/uL (1.3-2.9); LYMPHOCYTES % (AUTO) 9.7 % (21.0-51.0); MEAN CORPUSCULAR HEMOGLOBIN 32.5 pg (27.0-34.0); MEAN CORPUSCULAR HGB CONC 33.8 g/dL (33.0-35.0); MEAN CORPUSCULAR VOLUME 96.3 fL (80.0-100.0); MEAN PLATELET VOLUME 9.7 fL (7.4-11.0); MONOCYTES # (AUTO) 0.5 x10^3/uL (0.3-0.8); MONOCYTES % (AUTO) 4.2 % (0.0-13.0); NEUTROPHILS # (AUTO) 9.7 x10^3/uL (2.2-4.8); RED CELL DISTRIBUTION WIDTH 15.5 % (11.6-16.5); WHITE BLOOD COUNT 11.3 X10^3/uL (3.6-10.0)
[2021-11-27 05:43] LABS: ALBUMIN 2.4 g/dL (3.4-5.0); CALCIUM 8.1 mg/dL (8.5-10.1); CARBON DIOXIDE 22.2 mmol/L (21-32); COR CA(FOR HYPOALB) 9.4 mg/dL (8.5-10.1); CREATININE 1.61 mg/dL (0.55-1.02); TOTAL PROTEIN 5.8 g/dL (6.4-8.2)
[2021-11-27] MEDS: SINEMET (PLAIN) 25/250 MG PO SCH (06:01)
[2021-11-27] MEDS: NEURONTIN CAP 100 MG PO SCH (06:01)
[2021-11-27] MEDS: MIRAPEX TAB 1 MG PO SCH ×2 (06:01→09:09)
[2021-11-27] MEDS: SOLU-Medrol 40 MG VIAL IVP SCH (06:01)
[2021-11-27] MEDS: NovoLIN R (or HumuLIN R) SC PRN ×2 (06:15→12:08)
[2021-11-27] MEDS: PULMICORT NEB TX 0.5 MG NEB SCH (08:15)
[2021-11-27] MEDS: XOPENEX 1.25 MG/3 ML NEBULE NEB SCH (08:15)
[2021-11-27] MEDS: BROVANA IN SCH (08:15)
[2021-11-27] MEDS ORDERED: ZESTRIL TAB 20 MG ONE (08:49)
[2021-11-27] MEDS: AMARYL TAB 4 MG PO SCH (09:06)
[2021-11-27] MEDS: CELEXA PO SCH (09:06)
[2021-11-27] MEDS: ASPIRIN EC 81 MG PO SCH (09:06)
[2021-11-27] MEDS: ZESTRIL TAB 20 MG PO SCH (09:06)
[2021-11-27] MEDS: LEVAQUIN PREMIX IV 250 MG 250 MG/50 ML BAG IV SCH (09:07)
[2021-11-27] MEDS: REMDESIVIR 100 MG in NS 100 ML IV + SPIKE MINIBAG* 120 ML IV SCH (09:07)
[2021-11-27] MEDS: PEPCID TAB 20 MG PO SCH (09:07)
[2021-11-27] MEDS: FLONASE NASAL SPRAY ENOSTRIL SCH (09:07)
[2021-11-27] MEDS: LUVOX PO SCH (09:07)
[2021-11-27] MEDS: TOPROL XL PO SCH (09:08)
[2021-11-27] MEDS: ZINC SULFATE PO SCH (09:08)
[2021-11-27] MEDS: SYNTHROID 100 mcg TAB PO SCH (09:08)
[2021-11-27 11:07] VITALS: BP 151/68
== END 2021-11-27 12:58 | disposition home health service (06) | DRG 179 ==
LOC: ICU
PROVIDERS: ADMIT Internal Medicine; ATTEND Internal Medicine

== ENCOUNTER 2022-04-07 10:57 | Inpatient (IN) ==
[2022-04-07 12:39] VITALS: BMI 27.6
[2022-04-07 12:49] LABS: BASOPHILS # (AUTO) 0.1 X10^3/uL (0.0-0.1); BASOPHILS % (AUTO) 0.8 % (0.2-1.0); EOSINOPHILS # (AUTO) 0.2 x10^3/uL (0.0-0.2); EOSINOPHILS % (AUTO) 2.1 % (0.9-2.9); HEMATOCRIT 39.8 % (36.0-47.0); HEMOGLOBIN 13.5 g/dL (12.0-16.0); LYMPHOCYTES # (AUTO) 2.2 X10^3/uL (1.3-2.9); LYMPHOCYTES % (AUTO) 27.8 % (21.0-51.0); MEAN CORPUSCULAR HEMOGLOBIN 31.3 pg (27.0-34.0); MEAN CORPUSCULAR HGB CONC 34.1 g/dL (33.0-35.0); MONOCYTES # (AUTO) 0.7 x10^3/uL (0.3-0.8); MONOCYTES % (AUTO) 8.7 % (0.0-13.0); NEUTROPHILS # (AUTO) 4.9 x10^3/uL (2.2-4.8); NEUTROPHILS % (AUTO) 60.6 % (42.0-75.0); RED BLOOD COUNT 4.32 X10^6/uL (3.5-5.4); RED CELL DISTRIBUTION WIDTH 13.5 % (11.6-16.5)
[2022-04-07 12:58] LABS: ALBUMIN 3.1 g/dL (3.4-5.0); CALCIUM 8.9 mg/dL (8.5-10.1); CARBON DIOXIDE 32.2 mmol/L (21-32); COR CA(FOR HYPOALB) 9.6 mg/dL (8.5-10.1); CREATININE 1.49 mg/dL (0.55-1.02); TOTAL PROTEIN 6.6 g/dL (6.4-8.2)
--- NOTE | 2022-04-07 13:25 | CT ---
HISTORYAbdominal pain, melenaSTUDYCT abdomen pelvis without contrastTechnique: Axial noncontrast images with coronal and sagittal reformats. Dose reduction procedures were used with mA/kv adjusted for body size.[id number] bases are free of acute infiltrates. Mild chronic interstitial lung changes are present. The heart is enlarged. Coronary artery calcifications are present. The liver, spleen, adrenal glands, and pancreas are within normal limits only to the limitations of an unenhanced examination. Patient is status post cholecystectomy. The kidneys are unobstructed and without stones. No ureteral calculi are identified. Calcific atherosclerotic changes present in a nondilated abdominal aorta. No intraperitoneal or retroperitoneal lymphadenopathy of significance is identified. Postsurgical changes are present in the area of the cecum possibly due to prior appendectomy. There is a midline 5.5 x 3.4 by 3 cm fat containing supraumbilical ventral hernia. There are no findings suggestive of enteritis, colitis, or diverticulitis. Examination of the pelvis demonstrated no evidence for pelvic masses, pelvic fluid, or pelvic lymphadenopathy. No bladder abnormality is identified. Patient is status post left PAU in good position. No lytic or blastic skeletal lesions of significance are identified.IMPRESSIONNo acute inflammatory abnormality identified in the abdomen or pelvis but only to the limitations of an examination performed without intravenous and without oral contrast.Midline 5.5 x 3.4 x 3 cm fat containing supraumbilical ventral hernia, uncomplicated.CardiomegalyElectronically signed by: RC MAI (Apr 07, 2022 13:23:48)
[2022-04-07 13:39] LABS: BILIRUBIN,URINE NEGATIVE (NEGATIVE); BLOOD/HEMOGLOBIN,URINE NEGATIVE (NEGATIVE); GLUCOSE, URINE NEGATIVE (NEGATIVE); KETONES,URINE NEGATIVE (NEGATIVE); LEUKOCYTE ESTERASE ,URINE 1+ (NEGATIVE); NITRITES,URINE POSITIVE (NEGATIVE); PROTEIN,URINE NEGATIVE (NEGATIVE); UROBILINOGEN,URINE 1+ (NORMAL)
[2022-04-07 13:46] LABS: APPEARANCE,URINE SLIGHTLY HAZY (CLEAR); BACTERIA,URINE 3+ /HPF (NEGATIVE); COLOR,URINE YELLOW (YELLOW); SQUAMOUS EPITHELIAL CELL,UR FEW /HPF (NEGATIVE)
[2022-04-07] MEDS: NS 1,000 ML IV 1,000 ML IV SCH (18:24)
[2022-04-07] MEDS ORDERED: VOLTAREN 1 % GEL MULTI DOSE TUBE TOP PRN (20:31)
[2022-04-07] MEDS ORDERED: MIRAPEX TAB 1 MG PO PRN (20:31)
[2022-04-07] MEDS ORDERED: TESSALON PERLES PO PRN ×2 (20:31→20:56)
[2022-04-07] MEDS: ARICEPT TAB 10 MG PO SCH (21:36)
[2022-04-07] MEDS: PROTONIX INJ 40 MG VIAL IVP SCH (21:36)
[2022-04-07] MEDS: PEPCID TAB 20 MG PO SCH (21:36)
[2022-04-07] MEDS: LIPITOR TAB 10 MG PO SCH (21:36)
[2022-04-07] MEDS: MIRAPEX TAB 1 MG PO PRN (21:37)
[2022-04-07] MEDS: NEURONTIN CAP 300 MG PO SCH (21:37)
[2022-04-07] MEDS: TOPROL XL PO SCH (21:37)
[2022-04-07] MEDS: SINEMET (PLAIN) 25/250 MG PO SCH (21:37)
[2022-04-08] MEDS: NS 1,000 ML IV 1,000 ML IV SCH ×4 (04:07→17:22)
[2022-04-08 04:41] LABS: BASOPHILS % (AUTO) 0.5 % (0.2-1.0); EOSINOPHILS # (AUTO) 0.2 x10^3/uL (0.0-0.2); EOSINOPHILS % (AUTO) 2.1 % (0.9-2.9); HEMATOCRIT 40.7 % (36.0-47.0); HEMOGLOBIN 13.8 g/dL (12.0-16.0); LYMPHOCYTES # (AUTO) 2.2 X10^3/uL (1.3-2.9); LYMPHOCYTES % (AUTO) 28.8 % (21.0-51.0); MEAN CORPUSCULAR HEMOGLOBIN 31.4 pg (27.0-34.0); MEAN CORPUSCULAR HGB CONC 33.9 g/dL (33.0-35.0); MEAN CORPUSCULAR VOLUME 92.5 fL (80.0-100.0); MONOCYTES # (AUTO) 0.6 x10^3/uL (0.3-0.8); MONOCYTES % (AUTO) 7.9 % (0.0-13.0); NEUTROPHILS # (AUTO) 4.6 x10^3/uL (2.2-4.8); NEUTROPHILS % (AUTO) 60.7 % (42.0-75.0); RED BLOOD COUNT 4.39 X10^6/uL (3.5-5.4); RED CELL DISTRIBUTION WIDTH 13.3 % (11.6-16.5); WHITE BLOOD COUNT 7.6 X10^3/uL (3.6-10.0)
[2022-04-08 04:53] LABS: ALBUMIN 2.9 g/dL (3.4-5.0); CALCIUM 8.8 mg/dL (8.5-10.1); CARBON DIOXIDE 28.5 mmol/L (21-32); COR CA(FOR HYPOALB) 9.7 mg/dL (8.5-10.1); CREATININE 1.29 mg/dL (0.55-1.02); TOTAL PROTEIN 6.1 g/dL (6.4-8.2)
[2022-04-08] MEDS: NEURONTIN CAP 300 MG PO SCH ×3 (05:11→21:12)
[2022-04-08] MEDS: SINEMET (PLAIN) 25/250 MG PO SCH ×3 (05:12→21:15)
[2022-04-08] MEDS ORDERED: ZOFRAN INJ 4 MG VIAL IVP PRN (05:59)
[2022-04-08] MEDS: PROTONIX INJ 40 MG VIAL IVP SCH ×2 (09:00→21:12)
[2022-04-08] MEDS: ROCEPHIN VIAL 1 GRAM 1 G in NS 100 ML IV 100 ML IV SCH (09:00)
[2022-04-08] MEDS ORDERED: LEVAQUIN TAB 500 MG PO NR (09:00)
[2022-04-08] MEDS: NORVASC TAB 10 MG PO SCH (09:01)
[2022-04-08] MEDS: TOPROL XL PO SCH ×2 (09:01→21:12)
[2022-04-08] MEDS: CELEXA PO SCH (11:37)
[2022-04-08] MEDS: PEPCID TAB 20 MG PO SCH ×2 (11:38→21:12)
[2022-04-08] MEDS: SYNTHROID 112 mcg TAB PO SCH (11:40)
--- NOTE | 2022-04-08 13:02 | RAD ---
HISTORYPRE OP EGDSTUDYCHEST, 1 [id number] lungs are not well inflated. As a result, there are hypoventilatory changes. Apparent opacity in the left mid chest is probably due to overlying structures. No evidence for pneumonia or pleural effusion.The heart size is magnified. Vascular calcifications are present compatible with atherosclerosis.Bones are unremarkable. [Right jugular central venous catheter is in the expected location of the superior vena cava. Left subclavian ICD is present with leads in expected location. EKG leads are noted. Surgical clips are present in the right upper abdomen, probably from a cholecystectomy. ]IMPRESSION1. No acute findingElectronically signed by: Ernst Robledo (Apr 08, 2022 12:59:57)
--- NOTE | 2022-04-08 13:03 | DR.H&P ---
H&P - History & Physical for Day of: H&P Date: 04/07/22 - Chief Complaint Chief Complaint: BLACK, TARRY STOOLS, ABDOMINAL PAIN, WEAKNESS - History of Present Illness History of Present Illness: IS A 86 YEAR OLD PATIENT OF OURS. SHE PRESENTED TO THE ER WITH COMPLAINTS OF BLACK, TARRY STOOLS, LOWER ABDOMINAL PAIN, AND INCREASED WEAKNESS X 2 DAYS. SHE DESCRIBES ABDOMINAL PAIN CRAMPING, INTERMITTENT, AND RATES PAIN A 7/10. PAIN IS LOCATED ACROSS THE BOTTOM OF THE ABDOMEN. SHE DOES ADMIT TO FREQUENT URINATION. SHE DENIES FEVER. HER PMH INCLUDES: CAD, HTN, DYSLIPIDEMIA, DM II, HYPOTHYROIDISM, ANEMIA, GERD, ARTHRITIS, KIDNEY STONES, SLEEP APNEA, CHF, HYSTERECTOMY, MASTECTOMY, BOWEL RESECTION, AND CARDIAC STENTS. ON ARRIVAL TO THE HOSPITAL, VITALS WERE 98.3-76-16-96%-106/72. LABS WERE OBTAINED. WBC 8.0, RBC 4.32, HGB 13.5, HCT 39.8, SODIUM 137, POTASSIUM 4.1, CARBON DIOXIDE 32.2, BUN 23, CREATININE 1.49, GLUCOSE 163, AST 26, ALT 10, ALK PHOS 74, ALBUMIN 3.1. A URINALYSIS WAS OBTAINED AND REVEALED: WBC 5-10, RBC 3-5, LEUKOCYTES 1+, BACTERIA 3+, NITRITES POSITIVE. COVID-19 NEGATIVE. A URINE CULTURE WAS SET UP. AN ABDOMEN/PELVIS CT WITHOUT CONTRAST WAS OBTAINED AND REVEALED: No acute inflammatory abnormality identified in the abdomen or pelvis but only to the limitations of an examination performed without intravenous and without oral contrast. Midline 5.5 x 3.4 x 3 cm fat containing supraumbilical ventral hernia, uncomplicated. Cardiomegaly. PATIENT WAS ADMITTED TO THE HOSPITALS FOR FURTHER EVALUATION AND TREATMENT OF [place], UTI, AZOTEMIA, DM II, HTN, CHF, CAD. SHE WAS STARTED ON NORMAL SALINE AT 125ML/HR, ROCEPHIN 1G IV DAILY, OTBS ACHS, ZOFRAN 4MG IV Q6H PRN, PROTONIX 40MG IV BID, AND HER HOME MEDICATIONS WERE RESUMED. WE WILL CONSULT WITH FOR POSSIBLE ENDOSCOPY. OTHERWISE, WE PLAN TO FOLLOW-UP WITH AM LABS AND CONTINUE TO MONITOR. WE WILL HAVE PHYSICAL THERAPY EVALUATE PATIENT. TIME SPENT ON CLINICAL ASSESSMENT, REVIEWING LABS AND IMAGING, DECISION MAKING, AND DOCUMENTATION GREATER THAN 75 MINUTES. - Past Medical History Past Medical History: Coronary Artery Disease, Hypertension, Dyslipidemia, Diabetes, Hypothyroidism, Anemia, GERD, Arthritis, Kidney Stones, Sleep Apnea, CHF Additional Medical History: Vision Deficit, Parkinson's Disease, Atrial Fibrillation, Bronchitis, Pneumonia, Constipation, Diarrhea, Colon Cancer, Breast Cancer, Urinary Tract Infections, Muscle Weakness, Back Pain, Neuropathy, Previous Blood Transfusion - Past Surgical History Surgical History: Angioplasty/Stents, Bowel Resection, Hysterectomy, Mastectomy, Ortho Surgery, Other Additional Surgical History: Pacemaker, Two Colon Resection's for Colon Cancer, Left Partial Mastectomy for Breast Cancer, Right Chest Wall Port a cath, Left PAU - Family History Family Medical History: [place], Coronary Artery Disease, Hypertension - Social History Does patient currently use any type of tobacco product: No Have you used tobacco products in the last 12 months: No Type of Tobacco Use: None Does any household member use tobacco: No Alcohol Use: None Drug Use: None - Medications Home Medications: latex Allergy (Unknown, Verified 03/01/22 09:33) sulfamethoxazole [From Bactrim] Adverse Reaction (Unknown, Verified 03/01/22 09:33) trimethoprim [From Bactrim] Adverse Reaction (Unknown, Verified 03/01/22 09:33) ADHESIVE TAPE Allergy (Unknown, Uncoded 03/01/22 09:33) CONTINUE taking the following medications amlodipine 5 mg PO DAILY 04/07/22 [History] atorvastatin 10 mg PO HS 04/07/22 [History] benzonatate 200 mg PO PRN PRN 04/07/22 [History] carbidopa-levodopa 1 tab PO TID 04/07/22 [History] citalopram 20 mg PO DAILY 04/07/22 [History] diclofenac sodium 1 g TOPICAL PRN PRN 04/07/22 [History] donepezil 10 mg PO HS 04/07/22 [History] famotidine 20 mg PO BID 04/07/22 [History] furosemide 20 mg PO BID 04/07/22 [History] gabapentin 300 mg PO TID 04/07/22 [History] hydrochlorothiazide 12.5 mg PO DAILY 04/07/22 [History] levothyroxine 112 mcg PO DAILY 04/07/22 [History] metoprolol succinate 25 mg PO BID 04/07/22 [History] omeprazole 40 mg PO DAILY 04/07/22 [History] pramipexole 0.5 mg PO PRN PRN 04/07/22 [History] - Review of Systems Constitutional: Weakness. denies: Fever, Chills Eyes: No Symptoms Reported ENT: No Symptoms Reported Respiratory: No Symptoms Reported Cardiovascular: No Symptoms Reported Gastrointestinal: Abdominal Pain, Melena Genitourinary: No Symptoms Reported Musculoskeletal: No Symptoms Reported Skin: No Symptoms Reported Neurological: Weakness - Physical Exam Vital Signs: Temperature 97.6 F Pulse Rate [Left] 74 Pulse Rate 72 Respiratory Rate 20 Blood Pressure [Left Calf] 149/72 Blood Pressure [Right Arm] 178/92 Blood Pressure 159/90 O2 Sat by Pulse Oximetry 97 Oriented: Normal Eyes: Normal Ear: Normal Nose: Normal Throat: Normal Respiratory: Diminished Throughout Cardiovascular: Normal : Normal Auscultation: Bowel Sounds: Normal Palpation: Normal Tenderness: RLQ, LLQ, Moderate Skin: Decreased [place] Musculoskeletal: Normal Psychiatric: Normal Mood Description: Calm Affect: Normal Speech Pattern: Clear - Assessment/Plan (1) Acute UTI Status: Acute Plan: ADMIT, NORMAL SALINE AT 125ML/HR, ROCEPHIN 1G IV DAILY, OTBS ACHS, ZOFRAN 4MG IV Q6H PRN, PROTONIX 40MG IV BID, AND HER HOME MEDICATIONS WERE RESUMED. (2) Melena Status: Acute Plan: CONSULT FOR ENDOSCOPY (3) Azotemia Status: Acute (4) Generalized weakness Status: Acute (5) Diabetes mellitus, type II Qualifiers: Diabetes mellitus custodial insulin use: without exterminator helper termite use Diabetes mellitus complication status: without complication Qualified Code(s): E11.9 - Type 2 diabetes mellitus without complications Status: Chronic (6) GERD (gastroesophageal reflux disease) Qualifiers: Esophagitis presence: esophagitis presence not specified Qualified Code(s): K21.9 - Gastro-esophageal reflux disease without esophagitis Status: Chronic (7) HTN (hypertension) Qualifiers: Hypertension type: primary hypertension Qualified Code(s): I10 - Essential (primary) hypertension Status: Chronic (8) Hyperlipidemia Qualifiers: Hyperlipidemia type: mixed hyperlipidemia Status: Chronic (9) CHF (congestive heart failure) Qualifiers: Heart failure type: unspecified Heart failure chronicity: chronic Qualified Code(s): I50.9 - Heart failure, unspecified Status: Chronic (10) CAD (coronary artery disease) Qualifiers: Coronary Disease-Associated Artery/Lesion type: [place] artery [place] vs. transplanted heart: [place] heart Associated angina: unspecified whether angina present Qualified Code(s): I25.10 - Atherosclerotic heart disease of [place] coronary artery without angina pectoris Status: Chronic (11) Parkinson disease Status: Chronic - Allergies Allergies/Adverse Reactions: Allergies Allergy/AdvReac Type Severity Reaction Status Date / Time latex Allergy Unknown Verified 03/01/22 09:33 sulfamethoxazole AdvReac Unknown Verified 03/01/22 09:33 [From Bactrim] trimethoprim [From Bactrim] AdvReac Unknown Verified 03/01/22 09:33 ADHESIVE TAPE Allergy Unknown Uncoded 03/01/22 09:33
[2022-04-08] MEDS ORDERED: NS 1,000 ML IV 1,000 ML ONE (13:17)
[2022-04-08] MEDS ORDERED: DIPRIVAN VIAL 20 ML ONE (13:27)
[2022-04-08] MEDS: CARAFATE PO SCH ×2 (16:28→21:11)
[2022-04-08] MEDS: MIRAPEX TAB 1 MG PO PRN (20:55)
[2022-04-08] MEDS: LIPITOR TAB 10 MG PO SCH (21:11)
[2022-04-08] MEDS: ARICEPT TAB 10 MG PO SCH (21:11)
[2022-04-09 05:00] LABS: BASOPHILS % (AUTO) 0.5 % (0.2-1.0); EOSINOPHILS # (AUTO) 0.2 x10^3/uL (0.0-0.2); EOSINOPHILS % (AUTO) 1.7 % (0.9-2.9); HEMOGLOBIN 14.2 g/dL (12.0-16.0); LYMPHOCYTES # (AUTO) 2.3 X10^3/uL (1.3-2.9); LYMPHOCYTES % (AUTO) 24.1 % (21.0-51.0); MEAN CORPUSCULAR HEMOGLOBIN 31.2 pg (27.0-34.0); MEAN CORPUSCULAR HGB CONC 33.8 g/dL (33.0-35.0); MEAN CORPUSCULAR VOLUME 92.4 fL (80.0-100.0); MEAN PLATELET VOLUME 9.4 fL (7.4-11.0); MONOCYTES # (AUTO) 0.8 x10^3/uL (0.3-0.8); MONOCYTES % (AUTO) 8.3 % (0.0-13.0); NEUTROPHILS # (AUTO) 6.4 x10^3/uL (2.2-4.8); NEUTROPHILS % (AUTO) 65.4 % (42.0-75.0); RED BLOOD COUNT 4.54 X10^6/uL (3.5-5.4); RED CELL DISTRIBUTION WIDTH 13.1 % (11.6-16.5); WHITE BLOOD COUNT 9.7 X10^3/uL (3.6-10.0)
[2022-04-09 05:10] LABS: ALANINE AMINOTRANSFERASE 9 Units/L (12-78); ALKALINE PHOSPHATASE 72 Units/L (46-116); ASPARTATE AMINO TRANSFERASE 28 Units/L (15-37); BLOOD UREA NITROGEN 14 mg/dL (7-18); CALCIUM 8.8 mg/dL (8.5-10.1); CARBON DIOXIDE 25.9 mmol/L (21-32); CHLORIDE 106 mmol/L (98-107); COR CA(FOR HYPOALB) 9.6 mg/dL (8.5-10.1); CREATININE 1.05 mg/dL (0.55-1.02); SODIUM 139 mmol/L (136-145); TOTAL PROTEIN 6.4 g/dL (6.4-8.2); eGFR NON BLACK RACES 53 (>60)
[2022-04-09] MEDS: NEURONTIN CAP 300 MG PO SCH ×3 (05:30→21:01)
[2022-04-09] MEDS: SINEMET (PLAIN) 25/250 MG PO SCH ×3 (05:30→21:02)
[2022-04-09] MEDS: CARAFATE PO SCH ×4 (05:30→20:57)
[2022-04-09 05:40] LABS: PLATELET MORPHOLOGY COMMENT NORMAL (NORMAL)
[2022-04-09] MEDS: NS 1,000 ML IV 1,000 ML IV SCH ×4 (06:56→16:41)
[2022-04-09] MEDS: ROCEPHIN VIAL 1 GRAM 1 G in NS 100 ML IV 100 ML IV SCH (08:41)
[2022-04-09] MEDS: PROTONIX INJ 40 MG VIAL IVP SCH ×2 (08:42→21:00)
[2022-04-09] MEDS: NORVASC TAB 10 MG PO SCH (08:42)
[2022-04-09] MEDS: CELEXA PO SCH (08:43)
[2022-04-09] MEDS: SYNTHROID 112 mcg TAB PO SCH (08:43)
[2022-04-09] MEDS: PEPCID TAB 20 MG PO SCH ×2 (08:43→21:00)
[2022-04-09] MEDS: TOPROL XL PO SCH ×2 (08:43→21:01)
[2022-04-09] MEDS ORDERED: LEVAQUIN TAB 250 MG PO SCH ×2 (09:00)
[2022-04-09] MEDS: LEVSIN/MAALOX/LIDOC VISC PO SCH ×4 (10:07→20:59)
[2022-04-09] MEDS: NovoLIN R (or HumuLIN R) SUBCUT PRN (17:06)
[2022-04-09] MEDS: ARICEPT TAB 10 MG PO SCH (20:57)
[2022-04-09] MEDS: SNACK - Diabetic Appropriate PO SCH (20:58)
[2022-04-09] MEDS: LIPITOR TAB 10 MG PO SCH (20:59)
[2022-04-09] MEDS: MIRAPEX TAB 1 MG PO PRN (21:30)
[2022-04-10] MEDS: NS 1,000 ML IV 1,000 ML IV SCH ×3 (05:47→18:33)
[2022-04-10] MEDS: NEURONTIN CAP 300 MG PO SCH ×3 (05:48→21:30)
[2022-04-10] MEDS: SINEMET (PLAIN) 25/250 MG PO SCH ×3 (05:50→21:30)
[2022-04-10 06:05] LABS: ALANINE AMINOTRANSFERASE 10 Units/L (12-78); ALBUMIN 2.9 g/dL (3.4-5.0); ALKALINE PHOSPHATASE 71 Units/L (46-116); ASPARTATE AMINO TRANSFERASE 29 Units/L (15-37); BLOOD UREA NITROGEN 13 mg/dL (7-18); CALCIUM 8.9 mg/dL (8.5-10.1); CARBON DIOXIDE 23.8 mmol/L (21-32); CHLORIDE 106 mmol/L (98-107); COR CA(FOR HYPOALB) 9.8 mg/dL (8.5-10.1); COR NA(FOR HYPERGLY) 138 mmol/L (136-145); CREATININE 1.01 mg/dL (0.55-1.02); SODIUM 138 mmol/L (136-145); TOTAL PROTEIN 6.2 g/dL (6.4-8.2); eGFR NON BLACK RACES 55 (>60)
[2022-04-10] MEDS: CARAFATE PO SCH ×4 (06:05→21:26)
[2022-04-10] MEDS ORDERED: ZOFRAN TAB 4 MG SL PRN (06:34)
[2022-04-10] MEDS ORDERED: ZOFRAN TAB 4 MG ONE (06:35)
[2022-04-10 06:39] LABS: BASOPHILS # (AUTO) 0.1 X10^3/uL (0.0-0.1); BASOPHILS % (AUTO) 1.1 % (0.2-1.0); EOSINOPHILS # (AUTO) 0.1 x10^3/uL (0.0-0.2); EOSINOPHILS % (AUTO) 1.4 % (0.9-2.9); HEMATOCRIT 40.8 % (36.0-47.0); LYMPHOCYTES % (AUTO) 22.3 % (21.0-51.0); MEAN CORPUSCULAR HEMOGLOBIN 31.5 pg (27.0-34.0); MEAN CORPUSCULAR HGB CONC 34.3 g/dL (33.0-35.0); MEAN CORPUSCULAR VOLUME 91.8 fL (80.0-100.0); MEAN PLATELET VOLUME 9.2 fL (7.4-11.0); MONOCYTES # (AUTO) 0.6 x10^3/uL (0.3-0.8); MONOCYTES % (AUTO) 6.8 % (0.0-13.0); NEUTROPHILS # (AUTO) 6.2 x10^3/uL (2.2-4.8); NEUTROPHILS % (AUTO) 68.4 % (42.0-75.0); RED BLOOD COUNT 4.45 X10^6/uL (3.5-5.4); RED CELL DISTRIBUTION WIDTH 13.6 % (11.6-16.5); WHITE BLOOD COUNT 9.1 X10^3/uL (3.6-10.0)
[2022-04-10] MEDS ORDERED: ZOFRAN TAB 4 MG PO PRN (06:40)
[2022-04-10] MEDS: LEVSIN/MAALOX/LIDOC VISC PO SCH ×4 (08:17→21:26)
[2022-04-10] MEDS: NORVASC TAB 10 MG PO SCH (08:17)
[2022-04-10] MEDS: PROTONIX INJ 40 MG VIAL IVP SCH ×2 (08:17→21:29)
[2022-04-10] MEDS: CELEXA PO SCH (08:17)
[2022-04-10] MEDS: ROCEPHIN VIAL 1 GRAM 1 G in NS 100 ML IV 100 ML IV SCH (08:18)
[2022-04-10] MEDS: SYNTHROID 112 mcg TAB PO SCH (08:18)
[2022-04-10] MEDS: PEPCID TAB 20 MG PO SCH ×2 (08:18→21:28)
[2022-04-10] MEDS: TOPROL XL PO SCH ×2 (08:18→21:29)
--- NOTE | 2022-04-10 11:25 | DR.PROGNOT ---
Hospital Progress Notes - Progress Note for Day of: Progress Note Date: 04/10/22 - Chief Complaint Chief Complaint: comfortable .. no abdominal pain today , tolerating diet well . no active bleeding . being treated for UTI - Past Medical Family Social History Past Med/Fam/Surg Hx: No changes since H&P Allergies: Allergies latex Allergy (Unknown, Verified 03/01/22 09:33) sulfamethoxazole [From Bactrim] Adverse Reaction (Unknown, Verified 03/01/22 09:33) trimethoprim [From Bactrim] Adverse Reaction (Unknown, Verified 03/01/22 09:33) ADHESIVE TAPE Allergy (Unknown, Uncoded 03/01/22 09:33) - Review Of Systems ROS: No change since H&P - Vital Signs Vital Signs: Temperature 98.0 F Pulse Rate [Brachial] 69 Pulse Rate [Left] 65 Pulse Rate 72 Respiratory Rate 20 Blood Pressure [Left Calf] 149/72 Blood Pressure [Right Arm] 135/72 Blood Pressure 159/90 O2 Sat by Pulse Oximetry 97 - Physical Exam Oriented: Normal Eyes: Normal Ear: Normal Nose: Normal Throat: Normal Cardiovascular: Normal : Normal GI:Auscultation: Normal GI:Palpation: Normal GI: Tenderness: RLQ, LLQ, Moderate (soft abdomen . with mild diffuse tenderness lower abdomen .. BS+) Skin: Decreased Turgur Musculoskeletal: Normal Psychiatric: Normal Mood Description: Calm Affect: Normal Speech Pattern: Clear, Appropriate - Laboratory and Diagnostics Result Diagrams: 04/10/22 06:30 04/10/22 05:35 Labs: 04/07/22 13:25 Urine,Clean Catch Urine Culture - Final Escherichia Coli Laboratory WBC 9.1 X10^3/uL (3.6-10.0) 04/10/22 06:30 RBC 4.45 X10^6/uL (3.5-5.4) 04/10/22 06:30 Hgb 14.0 g/dL (12.0-16.0) 04/10/22 06:30 Hct 40.8 % (36.0-47.0) 04/10/22 06:30 MCV 91.8 fL (80.0-100.0) 04/10/22 06:30 MCH 31.5 pg (27.0-34.0) 04/10/22 06:30 MCHC 34.3 g/dL (33.0-35.0) 04/10/22 06:30 RDW 13.6 % (11.6-16.5) 04/10/22 06:30 Plt Count 216 X10^3/uL (150.0-450.0) 04/10/22 06:30 Plt Count Comment Adequate (ADEQUATE) 04/09/22 04:12 MPV 9.2 fL (7.4-11.0) 04/10/22 06:30 Neut % (Auto) 68.4 % (42.0-75.0) 04/10/22 06:30 Lymph % (Auto) 22.3 % (21.0-51.0) 04/10/22 06:30 Rich % (Auto) 6.8 % (0.0-13.0) 04/10/22 06:30 Eos % (Auto) 1.4 % (0.9-2.9) 04/10/22 06:30 Baso % (Auto) 1.1 % (0.2-1.0) H 04/10/22 06:30 Neut # (Auto) 6.2 x10^3/uL (2.2-4.8) H 04/10/22 06:30 Lymph # (Auto) 2.0 X10^3/uL (1.3-2.9) 04/10/22 06:30 Rich # (Auto) 0.6 x10^3/uL (0.3-0.8) 04/10/22 06:30 Eos # (Auto) 0.1 x10^3/uL (0.0-0.2) 04/10/22 06:30 Baso # (Auto) 0.1 X10^3/uL (0.0-0.1) 04/10/22 06:30 Absolute Nucleated RBC 0.4 /100WBC 04/10/22 06:30 Plt Morphology Comment Normal (NORMAL) 04/09/22 04:12 RBC Morphology Normal (NORMAL) 04/09/22 04:12 Sodium 138 mmol/L (136-145) 04/10/22 05:35 Corrected Sodium 138 mmol/L (136-145) 04/10/22 05:35 Potassium 4.0 mmol/L (3.5-5.1) 04/10/22 05:35 Chloride 106 mmol/L (98-107) 04/10/22 05:35 Carbon Dioxide 23.8 mmol/L (21-32) 04/10/22 05:35 BUN 13 mg/dL (7-18) 04/10/22 05:35 Creatinine 1.01 mg/dL (0.55-1.02) 04/10/22 05:35 Est GFR (MDRD) Af Amer > 60 (>60) 04/10/22 05:35 Est GFR (MDRD) Non-Af 55 (>60) L 04/10/22 05:35 Glucose 112 mg/dL (65-99) H 04/10/22 05:35 POC Glucose (mg/dL) 136 mg/dL (65-99) H 04/10/22 10:54 Calcium 8.9 mg/dL (8.5-10.1) 04/10/22 05:35 Corrected Calcium 9.8 mg/dL (8.5-10.1) 04/10/22 05:35 Total Bilirubin 0.50 mg/dL (0.2-1.0) 04/10/22 05:35 AST 29 Units/L (15-37) 04/10/22 05:35 ALT 10 Units/L (12-78) L 04/10/22 05:35 Alkaline Phosphatase 71 Units/L (46-116) 04/10/22 05:35 Total Protein 6.2 g/dL (6.4-8.2) L 04/10/22 05:35 Albumin 2.9 g/dL (3.4-5.0) L 04/10/22 05:35 Globulin 3.3 g/dL (2.5-4.5) 04/10/22 05:35 Albumin/Globulin Ratio 0.9 Ratio (1.1-2.1) L 04/10/22 05:35 Specimen Type Clean catch urine 04/07/22 13:25 Urine Color Yellow (YELLOW) 04/07/22 13:25 Urine Appearance Slightly hazy (CLEAR) 04/07/22 13:25 Urine pH 7.0 (5.0 - 8.0) 04/07/22 13:25 Ur Specific [place] 1.005 (1.000-1.030) 04/07/22 13:25 Urine Protein Negative (NEGATIVE) 04/07/22 13:25 Urine Glucose (UA) Negative (NEGATIVE) 04/07/22 13:25 Urine Ketones Negative (NEGATIVE) 04/07/22 13:25 Urine Blood Negative (NEGATIVE) 04/07/22 13:25 Urine Nitrite Positive (NEGATIVE) 04/07/22 13:25 Urine Bilirubin Negative (NEGATIVE) 04/07/22 13:25 Urine Urobilinogen 1+ (NORMAL) 04/07/22 13:25 Ur Leukocyte Esterase 1+ (NEGATIVE) 04/07/22 13:25 Urine RBC 3-5 /HPF (0-3) A 04/07/22 13:25 Urine WBC 5-10 /HPF (0-5) A 04/07/22 13:25 Ur Squamous Epith Cells Few /HPF (NEGATIVE) 04/07/22 13:25 Urine Bacteria 3+ /HPF (NEGATIVE) 04/07/22 13:25 Ur Culture Indicated? Yes/culture set up 04/07/22 13:25 Stool Description 20 grams 04/08/22 09:25 Stl Occult Blood (IFOB) Negative (NEGATIVE) 04/08/22 09:25 SARS-CoV-2 (PCR) Negative (NEGATIVE) 04/07/22 18:15 Tissue Pathology To follow 04/08/22 13:36 - Assessment and Plan 1: subsided GI bleeding . erosive gastritis .. UTI . on IV ABT .. to follow as OP and future colonoscopy . - Problem Patient Problems: Patient Problems Generalized weakness (Acute) R53.1 Melena (Acute) K92.1 Acute UTI (Acute) N39.0 Azotemia (Acute) R79.89 Diabetes mellitus, type II (Chronic) E11.9 Parkinson disease (Chronic) G20 GERD (gastroesophageal reflux disease) (Chronic) K21.9 HTN (hypertension) (Chronic) I10 Hyperlipidemia (Chronic) E78.5 CHF (congestive heart failure) (Chronic) I50.9 CAD (coronary artery disease) (Chronic) I25.10
[2022-04-10] MEDS: SNACK - Diabetic Appropriate PO SCH (20:30)
[2022-04-10] MEDS: ARICEPT TAB 10 MG PO SCH (21:25)
[2022-04-10] MEDS: LIPITOR TAB 10 MG PO SCH (21:26)
[2022-04-11] MEDS: SINEMET (PLAIN) 25/250 MG PO SCH ×3 (05:51→22:10)
[2022-04-11] MEDS: NEURONTIN CAP 300 MG PO SCH ×3 (05:51→22:10)
[2022-04-11] MEDS: CARAFATE PO SCH ×4 (05:52→20:55)
[2022-04-11 06:00] LABS: BASOPHILS # (AUTO) 0.1 X10^3/uL (0.0-0.1); BASOPHILS % (AUTO) 0.7 % (0.2-1.0); EOSINOPHILS # (AUTO) 0.1 x10^3/uL (0.0-0.2); EOSINOPHILS % (AUTO) 1.7 % (0.9-2.9); HEMATOCRIT 40.3 % (36.0-47.0); HEMOGLOBIN 13.7 g/dL (12.0-16.0); LYMPHOCYTES # (AUTO) 2.1 X10^3/uL (1.3-2.9); LYMPHOCYTES % (AUTO) 25.3 % (21.0-51.0); MEAN CORPUSCULAR HEMOGLOBIN 31.2 pg (27.0-34.0); MEAN CORPUSCULAR HGB CONC 34.1 g/dL (33.0-35.0); MEAN CORPUSCULAR VOLUME 91.6 fL (80.0-100.0); MEAN PLATELET VOLUME 8.7 fL (7.4-11.0); MONOCYTES # (AUTO) 0.6 x10^3/uL (0.3-0.8); MONOCYTES % (AUTO) 7.4 % (0.0-13.0); NEUTROPHILS # (AUTO) 5.3 x10^3/uL (2.2-4.8); NEUTROPHILS % (AUTO) 64.9 % (42.0-75.0); RED CELL DISTRIBUTION WIDTH 13.4 % (11.6-16.5); WHITE BLOOD COUNT 8.1 X10^3/uL (3.6-10.0)
[2022-04-11 06:09] LABS: ALANINE AMINOTRANSFERASE < 6 Units/L (12-78); ALBUMIN 2.7 g/dL (3.4-5.0); ALKALINE PHOSPHATASE 67 Units/L (46-116); ASPARTATE AMINO TRANSFERASE 26 Units/L (15-37); BLOOD UREA NITROGEN 18 mg/dL (7-18); CALCIUM 8.5 mg/dL (8.5-10.1); CARBON DIOXIDE 26.9 mmol/L (21-32); CHLORIDE 106 mmol/L (98-107); COR CA(FOR HYPOALB) 9.5 mg/dL (8.5-10.1); COR NA(FOR HYPERGLY) 139 mmol/L (136-145); CREATININE 1.16 mg/dL (0.55-1.02); SODIUM 138 mmol/L (136-145); TOTAL PROTEIN 6.1 g/dL (6.4-8.2); eGFR NON BLACK RACES 47 (>60)
[2022-04-11] MEDS: NS 1,000 ML IV 1,000 ML IV SCH ×3 (06:57→20:36)
[2022-04-11] MEDS: CELEXA PO SCH (08:09)
[2022-04-11] MEDS: LEVSIN/MAALOX/LIDOC VISC PO SCH ×4 (08:09→20:55)
[2022-04-11] MEDS: PEPCID TAB 20 MG PO SCH ×2 (08:11→20:55)
[2022-04-11] MEDS: NORVASC TAB 10 MG PO SCH (08:11)
[2022-04-11] MEDS: ROCEPHIN VIAL 1 GRAM 1 G in NS 100 ML IV 100 ML IV SCH (08:12)
[2022-04-11] MEDS: SYNTHROID 112 mcg TAB PO SCH (08:12)
[2022-04-11] MEDS: TOPROL XL PO SCH ×2 (08:12→20:55)
[2022-04-11] MEDS: PROTONIX INJ 40 MG VIAL IVP SCH ×2 (08:12→20:55)
--- NOTE | 2022-04-11 18:51 | ED.ABDFE ---
HPI Time Seen Time Seen by Provider: 04/07/22 14:02 PCP Primary Care Physician: Dr Petit Complaint Chief Complaint:: Pt c/o black tarry tool x2 days, also lower abd pain. Hx of colon ca. Referred to ED for eval after calling Dr Petit's office. COVID-19 Coronavirus risk:travel/contact w/high risk person: No Has patient experienced Coronavirus symptoms: No Source History Provided: Patient and Significant Other Mode of arrival Mode of Arrival: Wheelchair Timing Onset of Chief Complaint: 04/05/22 PMH PMH Past Medical History: Yes Past Medical History: Anemia, Arthritis, CHF, Coronary Artery Disease, Diabetes, Dyslipidemia, GERD, Hypertension, Hypothyroidism, Kidney Stones and Sleep Apnea Past Surgical History: Yes Surgical History: Angioplasty/Stents, Bowel Resection, Hysterectomy, Mastectomy and Ortho Surgery Family History History of Family Medical Conditions: Yes Family Medical History: NC, Coronary Artery Disease and Hypertension Social History Alcohol Use: None Do you use any recreational Drugs:: No Lives With: Spouse Lives Where: Home Travel Risk Coronavirus risk:travel/contact w/high risk person: No Has patient experienced Coronavirus symptoms: No Infectious screening In the last 2 months have you had wt loss of >10#?: NO Have you had fever, night sweats or hemotysis?: No Have you traveled outside the country in the last 6 months?: No Isolation: Standard ROS Review of Systems Constitutional: No Symptoms Reported Eyes: No Symptoms Reported ENTM: No Symptoms Reported Respiratoy: No Symptoms Reported Cardiovascular: No Symptoms Reported Gastrointestinal/Abdominal: Other (tarry stools) Genitourinary: No Symptoms Reported Neurological: No Symptoms Reported Musculoskeletal: No Symptoms Reported Integumentary: No Symptoms Reported Hematologic/Lymphatic: No Symptoms Reported Endocrine: No Symptoms Reported Psychiatric: No Symptoms Reported PE Vital Signs Vitals: Temperature 97.8 F Pulse Rate [Left] 62 Pulse Rate 72 Respiratory Rate 22 Blood Pressure [Left Calf] 149/72 Blood Pressure [Right Arm] 184/83 Blood Pressure 159/90 O2 Sat by Pulse Oximetry 93 General Limitations: No Limitations General Appearance: Alert and In No Apparent Distress Head Head Exam: Normal Inspection, Atraumatic and Normocephalic Eyes Eye exam: Normal Appearance and EOMI ENT ENT Exam: Normal Exam, Normal Oropharynx, Normal External Ear Exam and Mucous Membranes Moist Neck Neck Exam: Normal Inspection, Full ROM and Trachea Midline Chest Chest Inspection: Normal Inspection Respiratory Respiratory Exam: Normal Lung Sounds Bilat Cardiovascular Cardiovascular Exam: Regular Rate, Normal Rhythm, Normal Heart Sounds, +S1 and +S2 Abdominal Exam Abdominal Exam: Normal Inspection, Normal Bowel Sounds and Soft Rectal Rectal Exam: Deferred Back Back Exam: Normal Inspection and Full ROM Extremeties Extremities Exam: Normal Inspection and Full ROM External Exam: Female: Deferred Neurologic Neurological Exam: Alert and Oriented X3 Psychiatric Psychiatric Exam: Normal Affect and Normal Mood Skin Skin Exam: Intact COURSE Treatment Treatment: labs. were reviewed with her and I spoke with her PCP (Dr. Petit) who agrees to her being admitted for further work-up. Reevaluation 1st: Unchanged Education/Counseling Education/Counseling: Patient, Education and Counseling Educated On: Treatment, Diagnosis, Prognosis and Needs for Follow Up ROR Labs Reviewed Result Diagrams: 04/11/22 05:38 04/11/22 05:38 Laboratory: 04/07/22 13:25 Urine,Clean Catch Urine Culture - Final Escherichia Coli WBC 9.7 X10^3/uL (3.6-10.0) 04/09/22 04:12 RBC 4.54 X10^6/uL (3.5-5.4) 04/09/22 04:12 Hgb 14.2 g/dL (12.0-16.0) 04/09/22 04:12 Hct 42.0 % (36.0-47.0) 04/09/22 04:12 MCV 92.4 fL (80.0-100.0) 04/09/22 04:12 MCH 31.2 pg (27.0-34.0) 04/09/22 04:12 MCHC 33.8 g/dL (33.0-35.0) 04/09/22 04:12 RDW 13.1 % (11.6-16.5) 04/09/22 04:12 Plt Count 188 X10^3/uL (150.0-450.0) 04/09/22 04:12 Plt Count Comment Adequate (ADEQUATE) 04/09/22 04:12 MPV 9.4 fL (7.4-11.0) 04/09/22 04:12 Neut % (Auto) 65.4 % (42.0-75.0) 04/09/22 04:12 Lymph % (Auto) 24.1 % (21.0-51.0) 04/09/22 04:12 Bell % (Auto) 8.3 % (0.0-13.0) 04/09/22 04:12 Eos % (Auto) 1.7 % (0.9-2.9) 04/09/22 04:12 Baso % (Auto) 0.5 % (0.2-1.0) 04/09/22 04:12 Neut # (Auto) 6.4 x10^3/uL (2.2-4.8) H 04/09/22 04:12 Lymph # (Auto) 2.3 X10^3/uL (1.3-2.9) 04/09/22 04:12 Bell # (Auto) 0.8 x10^3/uL (0.3-0.8) 04/09/22 04:12 Eos # (Auto) 0.2 x10^3/uL (0.0-0.2) 04/09/22 04:12 Baso # (Auto) 0.0 X10^3/uL (0.0-0.1) 04/09/22 04:12 Absolute Nucleated RBC 0.1 /100WBC 04/09/22 04:12 Plt Morphology Comment Normal (NORMAL) 04/09/22 04:12 RBC Morphology Normal (NORMAL) 04/09/22 04:12 Sodium 139 mmol/L (136-145) 04/09/22 04:12 Corrected Sodium TNP 04/09/22 04:12 Potassium 3.9 mmol/L (3.5-5.1) 04/09/22 04:12 Chloride 106 mmol/L (98-107) 04/09/22 04:12 Carbon Dioxide 25.9 mmol/L (21-32) 04/09/22 04:12 BUN 14 mg/dL (7-18) 04/09/22 04:12 Creatinine 1.05 mg/dL (0.55-1.02) H 04/09/22 04:12 Est GFR (MDRD) Af Amer > 60 (>60) 04/09/22 04:12 Est GFR (MDRD) Non-Af 53 (>60) L 04/09/22 04:12 Glucose 87 mg/dL (65-99) 04/09/22 04:12 POC Glucose (mg/dL) 100 mg/dL (65-99) H 04/09/22 05:36 Calcium 8.8 mg/dL (8.5-10.1) 04/09/22 04:12 Corrected Calcium 9.6 mg/dL (8.5-10.1) 04/09/22 04:12 Total Bilirubin 0.60 mg/dL (0.2-1.0) 04/09/22 04:12 AST 28 Units/L (15-37) 04/09/22 04:12 ALT 9 Units/L (12-78) L 04/09/22 04:12 Alkaline Phosphatase 72 Units/L (46-116) 04/09/22 04:12 Total Protein 6.4 g/dL (6.4-8.2) 04/09/22 04:12 Albumin 3.0 g/dL (3.4-5.0) L 04/09/22 04:12 Globulin 3.4 g/dL (2.5-4.5) 04/09/22 04:12 Albumin/Globulin Ratio 0.9 Ratio (1.1-2.1) L 04/09/22 04:12 Specimen Type Clean catch urine 04/07/22 13:25 Urine Color Yellow (YELLOW) 04/07/22 13:25 Urine Appearance Slightly hazy (CLEAR) 04/07/22 13:25 Urine pH 7.0 (5.0 - 8.0) 04/07/22 13:25 Ur Specific [place] 1.005 (1.000-1.030) 04/07/22 13:25 Urine Protein Negative (NEGATIVE) 04/07/22 13:25 Urine Glucose (UA) Negative (NEGATIVE) 04/07/22 13:25 Urine Ketones Negative (NEGATIVE) 04/07/22 13:25 Urine Blood Negative (NEGATIVE) 04/07/22 13:25 Urine Nitrite Positive (NEGATIVE) 04/07/22 13:25 Urine Bilirubin Negative (NEGATIVE) 04/07/22 13:25 Urine Urobilinogen 1+ (NORMAL) 04/07/22 13:25 Ur Leukocyte Esterase 1+ (NEGATIVE) 04/07/22 13:25 Urine RBC 3-5 /HPF (0-3) A 04/07/22 13:25 Urine WBC 5-10 /HPF (0-5) A 04/07/22 13:25 Ur Squamous Epith Cells Few /HPF (NEGATIVE) 04/07/22 13:25 Urine Bacteria 3+ /HPF (NEGATIVE) 04/07/22 13:25 Ur Culture Indicated? Yes/culture set up 04/07/22 13:25 Stool Description 20 grams 04/08/22 09:25 Stl Occult Blood (IFOB) Negative (NEGATIVE) 04/08/22 09:25 SARS-CoV-2 (PCR) Negative (NEGATIVE) 04/07/22 18:15 Tissue Pathology To follow 04/08/22 13:36 Opioid Opioid Risk Tool Age (Gagan box if 16-45): No History of Preadolescent Sexual Abuse: No Total: 0 Total Score Risk Category: Low Risk Copyright: Piotr FIGUEROA predicting aberrant behaviors Diagnosis Discharge Problem: Melena, Acute UTI, Azotemia, Parkinson disease HTN (hypertension) Qualifiers: Hypertension type: primary hypertension Qualified Code(s): I10 - Essential (primary) hypertension CHF (congestive heart failure) Qualifiers: Heart failure type: unspecified Heart failure chronicity: chronic Qualified Code(s): I50.9 - Heart failure, unspecified Diabetes mellitus, type II Qualifiers: Diabetes mellitus long-term insulin use: without long-term use Diabetes mellitus complication status: without complication Qualified Code(s): E11.9 - Type 2 diabetes mellitus without complications GERD (gastroesophageal reflux disease) Qualifiers: Esophagitis presence: esophagitis presence not specified Qualified Code(s): K21.9 - Gastro-esophageal reflux disease without esophagitis
[2022-04-11] MEDS ORDERED: ULTRAM PO PRN (20:33)
[2022-04-11] MEDS: SNACK - Diabetic Appropriate PO SCH (20:35)
[2022-04-11] MEDS: ARICEPT TAB 10 MG PO SCH (20:50)
[2022-04-11] MEDS: LIPITOR TAB 10 MG PO SCH (20:55)
[2022-04-11] MEDS: NovoLIN R (or HumuLIN R) SUBCUT PRN (21:05)
[2022-04-12 04:32] LABS: BASOPHILS % (AUTO) 0.6 % (0.2-1.0); EOSINOPHILS # (AUTO) 0.2 x10^3/uL (0.0-0.2); EOSINOPHILS % (AUTO) 2.1 % (0.9-2.9); HEMATOCRIT 39.5 % (36.0-47.0); HEMOGLOBIN 13.4 g/dL (12.0-16.0); LYMPHOCYTES # (AUTO) 2.2 X10^3/uL (1.3-2.9); LYMPHOCYTES % (AUTO) 28.6 % (21.0-51.0); MEAN CORPUSCULAR HEMOGLOBIN 31.1 pg (27.0-34.0); MEAN CORPUSCULAR VOLUME 91.6 fL (80.0-100.0); MEAN PLATELET VOLUME 8.6 fL (7.4-11.0); MONOCYTES # (AUTO) 0.6 x10^3/uL (0.3-0.8); MONOCYTES % (AUTO) 8.2 % (0.0-13.0); NEUTROPHILS # (AUTO) 4.7 x10^3/uL (2.2-4.8); NEUTROPHILS % (AUTO) 60.5 % (42.0-75.0); RED BLOOD COUNT 4.31 X10^6/uL (3.5-5.4); RED CELL DISTRIBUTION WIDTH 13.5 % (11.6-16.5); WHITE BLOOD COUNT 7.8 X10^3/uL (3.6-10.0)
[2022-04-12 04:33] LABS: ALANINE AMINOTRANSFERASE 7 Units/L (12-78); ALBUMIN 2.6 g/dL (3.4-5.0); ALKALINE PHOSPHATASE 62 Units/L (46-116); ASPARTATE AMINO TRANSFERASE 20 Units/L (15-37); BLOOD UREA NITROGEN 20 mg/dL (7-18); CALCIUM 8.4 mg/dL (8.5-10.1); CARBON DIOXIDE 26.5 mmol/L (21-32); CHLORIDE 107 mmol/L (98-107); COR CA(FOR HYPOALB) 9.5 mg/dL (8.5-10.1); CREATININE 1.28 mg/dL (0.55-1.02); SODIUM 139 mmol/L (136-145); TOTAL PROTEIN 5.7 g/dL (6.4-8.2); eGFR NON BLACK RACES 42 (>60)
[2022-04-12] MEDS: NEURONTIN CAP 300 MG PO SCH (05:35)
[2022-04-12] MEDS: SINEMET (PLAIN) 25/250 MG PO SCH (05:36)
[2022-04-12] MEDS: NS 1,000 ML IV 1,000 ML IV SCH ×3 (05:49→10:16)
[2022-04-12] MEDS: CARAFATE PO SCH (05:50)
[2022-04-12 08:14] VITALS: BP 115/65
[2022-04-12] MEDS ORDERED: PEPCID TAB 20 MG PO SCH (09:00)
[2022-04-12] MEDS: CELEXA PO SCH (09:30)
[2022-04-12] MEDS: PROTONIX INJ 40 MG VIAL IVP SCH ×2 (09:31→10:14)
[2022-04-12] MEDS: LEVSIN/MAALOX/LIDOC VISC PO SCH (09:31)
[2022-04-12] MEDS: NORVASC TAB 10 MG PO SCH (09:31)
[2022-04-12] MEDS: SYNTHROID 112 mcg TAB PO SCH (09:32)
[2022-04-12] MEDS: TOPROL XL PO SCH (09:32)
[2022-04-12] MEDS: ROCEPHIN VIAL 1 GRAM 1 G in NS 100 ML IV 100 ML IV SCH ×2 (09:32→10:16)
[2022-04-12] MEDS ORDERED: ROCEPHIN VIAL 1 GRAM IM NR (10:15)
[2022-04-12] MEDS ORDERED: XYLOCAINE 1 % (PLAIN) ONE (10:29)
[2022-04-12] MEDS ORDERED: PROTONIX TAB 40 MG PO ONE (11:00)
== END 2022-04-12 11:40 | disposition home health service (06) | DRG 690 ==
LOC: MED/SURG 10:57 → ER 10:57 → MED/SURG 17:07
PROVIDERS: ADMIT Internal Medicine; ATTEND Internal Medicine
DX: K21.00 Gastro-esophageal reflux disease with esophagitis, without bleeding; K92.1 Melena; Z85.038 Personal history of other malignant neoplasm of large intestine; I11.0 Hypertensive heart disease with heart failure; E03.8 Other specified hypothyroidism; K44.9 Diaphragmatic hernia without obstruction or gangrene; R53.1 Weakness; Z20.822 Contact with and (suspected) exposure to COVID-19; E78.2 Mixed hyperlipidemia; R26.89 Other abnormalities of gait and mobility; R79.89 Other specified abnormal findings of blood chemistry; K25.3 Acute gastric ulcer without hemorrhage or perforation; I50.9 Heart failure, unspecified; R10.31 Right lower quadrant pain; K29.00 Acute gastritis without bleeding; N39.0 Urinary tract infection, site not specified; I25.10 Atherosclerotic heart disease of native coronary artery without angina pectoris; G20 Parkinson's disease; E11.65 Type 2 diabetes mellitus with hyperglycemia

== ENCOUNTER 2022-05-12 07:57 | Observation (INO) ==
[2022-05-12 10:28] VITALS: BMI 31.7
[2022-05-12 10:37] LABS: BASOPHILS # (AUTO) 0.1 X10^3/uL (0.0-0.1); BASOPHILS % (AUTO) 0.8 % (0.2-1.0); EOSINOPHILS # (AUTO) 0.1 x10^3/uL (0.0-0.2); HEMATOCRIT 39.9 % (36.0-47.0); HEMOGLOBIN 13.6 g/dL (12.0-16.0); LYMPHOCYTES # (AUTO) 1.9 X10^3/uL (1.3-2.9); LYMPHOCYTES % (AUTO) 20.1 % (21.0-51.0); MEAN CORPUSCULAR HEMOGLOBIN 31.1 pg (27.0-34.0); MEAN CORPUSCULAR HGB CONC 34.2 g/dL (33.0-35.0); MEAN CORPUSCULAR VOLUME 91.1 fL (80.0-100.0); MEAN PLATELET VOLUME 8.4 fL (7.4-11.0); MONOCYTES # (AUTO) 0.6 x10^3/uL (0.3-0.8); MONOCYTES % (AUTO) 6.7 % (0.0-13.0); NEUTROPHILS # (AUTO) 6.6 x10^3/uL (2.2-4.8); NEUTROPHILS % (AUTO) 71.4 % (42.0-75.0); RED BLOOD COUNT 4.38 X10^6/uL (3.5-5.4); RED CELL DISTRIBUTION WIDTH 14.4 % (11.6-16.5); WHITE BLOOD COUNT 9.2 X10^3/uL (3.6-10.0)
[2022-05-12] MEDS ORDERED: NS 1,000 ML IV 1,000 ML ONE (10:46)
[2022-05-12 11:10] LABS: ALBUMIN 3.3 g/dL (3.4-5.0); CALCIUM 8.8 mg/dL (8.5-10.1); CARBON DIOXIDE 30.5 mmol/L (21-32); COR CA(FOR HYPOALB) 9.4 mg/dL (8.5-10.1); CREATININE 1.51 mg/dL (0.55-1.02); TOTAL PROTEIN 6.8 g/dL (6.4-8.2)
[2022-05-12 11:17] LABS: BILIRUBIN,URINE NEGATIVE (NEGATIVE); BLOOD/HEMOGLOBIN,URINE NEGATIVE (NEGATIVE); GLUCOSE, URINE NEGATIVE (NEGATIVE); KETONES,URINE NEGATIVE (NEGATIVE); LEUKOCYTE ESTERASE ,URINE NEGATIVE (NEGATIVE); NITRITES,URINE NEGATIVE (NEGATIVE); PROTEIN,URINE NEGATIVE (NEGATIVE); UROBILINOGEN,URINE NORMAL (NORMAL)
[2022-05-12 11:18] LABS: APPEARANCE,URINE CLEAR (CLEAR); COLOR,URINE PALE YELLOW (YELLOW)
[2022-05-12] MEDS: NS 1,000 ML IV 1,000 ML IV SCH (11:37)
[2022-05-12] MEDS: TYLENOL 325 MG TAB PO PRN ×2 (14:08→21:09)
--- NOTE | 2022-05-12 14:19 | RAD ---
HISTORYSOB CHF, CAD, DM, HTN, SLEEP APNEA SX: PARKINSONS, ANGIO/STENTS, BOWEL/RESECTION, HYST, MAST, ORTHO SURGSTUDYCHEST, 1 VIEWCOMPARISONAP chest April 08, 2022.FINDINGSThe trachea is midline. The cardiac silhouette is mildly enlarged but stable. Pacemaker is in place. A right internal jugular port is in place with the tip in the superior vena cava. The lungs are clear without focal infiltrate or effusion. Vascularity is normal. The bony thorax is unremarkable.IMPRESSIONThe megaly stable with pacemaker in place.Right internal jugular central venous port on the rightSurgical clips right upper quadrant from cholecystectomy. No interval change from the prior chest film April 08, 2022. No acute cardiopulmonary findings .Electronically signed by: GEGE TATUM (May 12, 2022 14:18:05)
[2022-05-12] MEDS ORDERED: NovoLIN R (or HumuLIN R) SUBCUT PRN (20:05)
[2022-05-13] MEDS: NS 1,000 ML IV 1,000 ML IV SCH ×3 (01:28→15:20)
[2022-05-13 06:01] LABS: BASOPHILS # (AUTO) 0.1 X10^3/uL (0.0-0.1); BASOPHILS % (AUTO) 0.9 % (0.2-1.0); EOSINOPHILS # (AUTO) 0.1 x10^3/uL (0.0-0.2); EOSINOPHILS % (AUTO) 1.2 % (0.9-2.9); HEMATOCRIT 39.5 % (36.0-47.0); HEMOGLOBIN 13.4 g/dL (12.0-16.0); LYMPHOCYTES # (AUTO) 2.4 X10^3/uL (1.3-2.9); LYMPHOCYTES % (AUTO) 27.1 % (21.0-51.0); MEAN CORPUSCULAR HEMOGLOBIN 30.8 pg (27.0-34.0); MEAN CORPUSCULAR HGB CONC 33.9 g/dL (33.0-35.0); MEAN CORPUSCULAR VOLUME 90.8 fL (80.0-100.0); MEAN PLATELET VOLUME 8.3 fL (7.4-11.0); MONOCYTES # (AUTO) 0.6 x10^3/uL (0.3-0.8); MONOCYTES % (AUTO) 6.8 % (0.0-13.0); NEUTROPHILS # (AUTO) 5.6 x10^3/uL (2.2-4.8); RED BLOOD COUNT 4.35 X10^6/uL (3.5-5.4); RED CELL DISTRIBUTION WIDTH 14.1 % (11.6-16.5); WHITE BLOOD COUNT 8.7 X10^3/uL (3.6-10.0)
[2022-05-13 06:16] LABS: ALBUMIN 3.2 g/dL (3.4-5.0); CALCIUM 8.7 mg/dL (8.5-10.1); CARBON DIOXIDE 29.1 mmol/L (21-32); COR CA(FOR HYPOALB) 9.3 mg/dL (8.5-10.1); CREATININE 1.32 mg/dL (0.55-1.02); TOTAL PROTEIN 6.5 g/dL (6.4-8.2)
[2022-05-13] MEDS ORDERED: NS 100 ML IV 100 ML ONE (07:48)
[2022-05-13] MEDS: TYLENOL 325 MG TAB PO PRN ×2 (09:40→15:20)
[2022-05-13] MEDS: LOVENOX INJ 30 MG SYR SC SCH (10:55)
[2022-05-13] MEDS: GENTAMICIN TOPICAL OINT TOP SCH ×2 (10:55→20:43)
[2022-05-13] MEDS: ZOFRAN INJ 4 MG VIAL IVP PRN (12:35)
--- NOTE | 2022-05-13 15:15 | CT ---
HISTORYCHRONIC SWELLING, SOBSTUDYCTA AORTA WITH RUNOFFCOMPARISONCT abdomen and pelvis dated 04/07/2022.TECHNIQUEAxial images through the abdomen pelvis and bilateral leg runoff was performed with and without contrast. 3D MIPS images were performed.. CT scan was performed following ALARA (As low as Reasonably Achievable).Coronal and Sagittal reformatted images were performed.FINDINGSThe lung bases demonstrate patchy atelectasis. The ascending aorta measures approximately 3.4 centimeters. There is no pleural or pericardial effusions. The esophagus is mildly dilated without mucosal thickening nonspecific. There is mild cardiomegaly. The liver demonstrate no focal lesions with mild fatty changes. The spleen is nonenlarged. The stomach is not distended. Small hiatal hernia. The pancreas demonstrate no focal abnormalities there is no intra or extrahepatic biliary dilatation.There is enhancement of the portal vein. There is no adrenal masses. There are bilateral small kidneys without hydronephrosis with normal enhancement. There is a 2 centimeters midpole right renal cyst. No evidence of radiopaque ureteral stones. No retroperitoneal masses. There are some mild prominent small bowel loops proximally. No transition is seen. There is an anterior periumbilical ventral hernia containing small bowel loops in the arterial phase.There is severe constipationPelvis: There is a left hip prosthesis in place producing artifact,no free fluid in the cul de sac,the urinary bladder is not distended, no pelvic adenopathy, there is sigmoid colonic diverticulosis without diverticulitisBone windows there is no evidence of aggressive bone lesions, no acute fractures. There is a left hip prosthesis.There is atherosclerotic changes of the abdominal aorta with a posterior atherosclerotic plaque and thrombus formation,no aneurysm or acute dissectionThere is calcification at the origin of the celiac without significant stenosis,there is also normal enhancement of the superior mesenteric artery without focal stenosis, there are bilateral single renal arteries with 80-90 percent stenosis in the left at the origin and proximal and 60-70 percent in the right.There is bilateral normal enhancement of the common iliac arteries and the external iliac arteries t,here is bilateral normal enhancement of the common femoral arteries,the right demonstrate mild circumferential plaque,there is a normal bifurcation with normal enhancement of the right superficial femoral artery and the profunda femoral artery, there are some areas of circumferential calcification in the mid and distal aspect without high-grade stenosis, there is enhancement of the right popliteal artery as well as the takeoff of the anterior tibialis artery,there is normal tibioperoneal trunk with dominant 3 vessels along the calf better seen in the delayed images with areas of high-grade stenosis in the right anterior tibialis artery; however there is enhancement of the right dorsal pedis artery and the more distal posterior tibialis artery. The plantar branches are not enhancing in the right, it could represent occlusion versus slow flowThere is normal enhancement of the left common femoral artery at the bifurcation as well as the profunda and the superficial femoral artery, there is some motion artifact, there is 50 percent stenosis of the mid right superficial femoral artery and 60 percent in the distal aspect with circumferential calcification. There is enhancement of the popliteal artery with 40 percent stenosis and circumferential calcification. There is normal enhancement of the anterior tibialis artery and the tibioperoneal trunk with 3 vessels at the calf,there is enhancement in the delayed images of the plantar branches, there is also enhancement of the dorsal pedis artery.IMPRESSIONBilateral normal enhancement of the common iliac arteries and the external iliac arteries and the common femoral arteries with focal areas of stenosis of the superficial femoral arteries of 50-60 percent in the mid to distal aspect with normal enhancement of the popliteal arteries with some diffuse 40-50 percent in the left.Bilateral areasof high-grade disease of the anterior tibialis artery ;however bilateral enhancing dorsal pedis arteryBilateral patency of the tibioperoneal trunk with diffuse disease and an enhancing plantar branch in the left,the right was not enhancing in the delayed images it could be occlusion versus slow flow.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
[2022-05-13] MEDS: NORVASC TAB 10 MG PO SCH (17:09)
[2022-05-13] MEDS: TOPROL XL PO SCH (17:09)
[2022-05-13] MEDS ORDERED: SNACK - Diabetic Appropriate PO SCH (20:00)
[2022-05-13] MEDS ORDERED: COLACE CAP 100 MG PO PRN (22:53)
[2022-05-14] MEDS: NS 1,000 ML IV 1,000 ML IV SCH (03:51)
[2022-05-14 06:30] LABS: BASOPHILS % (AUTO) 0.5 % (0.2-1.0); EOSINOPHILS # (AUTO) 0.1 x10^3/uL (0.0-0.2); EOSINOPHILS % (AUTO) 0.8 % (0.9-2.9); HEMATOCRIT 40.8 % (36.0-47.0); HEMOGLOBIN 13.9 g/dL (12.0-16.0); LYMPHOCYTES # (AUTO) 1.9 X10^3/uL (1.3-2.9); LYMPHOCYTES % (AUTO) 22.8 % (21.0-51.0); MEAN CORPUSCULAR HEMOGLOBIN 30.8 pg (27.0-34.0); MEAN CORPUSCULAR HGB CONC 34.1 g/dL (33.0-35.0); MEAN CORPUSCULAR VOLUME 90.2 fL (80.0-100.0); MEAN PLATELET VOLUME 8.7 fL (7.4-11.0); MONOCYTES # (AUTO) 0.6 x10^3/uL (0.3-0.8); MONOCYTES % (AUTO) 7.2 % (0.0-13.0); NEUTROPHILS # (AUTO) 5.7 x10^3/uL (2.2-4.8); NEUTROPHILS % (AUTO) 68.7 % (42.0-75.0); RED BLOOD COUNT 4.52 X10^6/uL (3.5-5.4); RED CELL DISTRIBUTION WIDTH 14.4 % (11.6-16.5); WHITE BLOOD COUNT 8.3 X10^3/uL (3.6-10.0)
[2022-05-14 06:48] LABS: ALBUMIN 3.1 g/dL (3.4-5.0); CARBON DIOXIDE 27.5 mmol/L (21-32); COR CA(FOR HYPOALB) 9.7 mg/dL (8.5-10.1); CREATININE 1.12 mg/dL (0.55-1.02); TOTAL PROTEIN 6.5 g/dL (6.4-8.2)
[2022-05-14] MEDS: GENTAMICIN TOPICAL OINT TOP SCH (08:00)
[2022-05-14] MEDS: LOVENOX INJ 30 MG SYR SC SCH (08:00)
[2022-05-14] MEDS: TOPROL XL PO SCH (08:00)
[2022-05-14] MEDS: NORVASC TAB 10 MG PO SCH (08:00)
[2022-05-14] MEDS: ZOFRAN INJ 4 MG VIAL IVP PRN (08:43)
[2022-05-14 09:23] VITALS: BP 204/96
--- NOTE | 2022-05-14 10:43 | DR.UPDATE ---
H&P Update History and Physical Update: History and Physical reviewed and patient examined. Changes noted: Yes with the following: WAS A DIRECT ADMISSION OBSERVATION STATUS FOR TREATMENT OF PERSISTENT LOWER EXTREMITY EDEMA AND LOWER EXTREMITY PAIN. BILATERAL LOWER EXTREMITIES ARE NOTED WITH 1+ PITTING EDEMA. SHE HAS BEEN TAKING FUROSEMIDE 20MG PO BID AT HOME WITHOUT SIGNIFICANT IMPROVEMENT IN SYMPTOMS. SHE COMPLAINS OF THROBBING PAIN TO FEET. PATIENT IS ALSO NOTED TO HAVE 2ND DEGREE HENRY TO THE TIPS OF THE FINGERS ON THE LEFT HAND. PATIENT REPORTS THAT SHE OBTAINED HENRY SEVERAL DAYS AGO WHEN SHE WAS MAKING CANDY AT HOME AND TOUCHED THE HOT CANDY. ON ARRIVAL TO THE HOSPITAL, VITALS WERE 97.5-74-18-91%-133/82. LABS WERE OBTAINED. WBC 9.2, RBC 4.38, HGB 13.6, HCT 39.9, PLT COUNT 219, SODIUM 139, POTASSIUM 4.2, BUN 23, CREATININE 1.51, GLUCOSE 150, CALCIUM 8.8, AST 20, ALT 15, ALK PHOS 70, BNP 269, TOTAL PROTEIN 6.8, ALBUMIN 3.3. URINALYSIS WAS OBTAINED AND WAS UNREMARKABLE. COVID-19 NEGATIVE. BLOOD CULTURES WERE SET UP. A CHEST XRAY WAS OBTAINED AND REVEALED: The megaly stable with pacemaker in place. Right internal jugular central venous port on the right. Surgical clips right upper quadrant from cholecystectomy. No interval change from the prior chest film April 08, 2022. No acute cardiopulmonary findings. WE PLAN TO OBTAIN A CTA AORTA WITH RUNOFF TO ASSESS CIRCULATION. SHE WAS STARTED ON NORMAL SALINE AT 75 ML/HR, OTBS ACHS, HUMULIN R SLIDING SCALE, TYLENOL 650MG PO Q6H PRN. WE WILL REVIEW HER HOME MEDICATIONS. OTHERWISE, WE PLAN TO FOLLOW UP WITH AM LABS AND CONTINUE TO MONITOR. TIME SPENT ON CLINICAL ASSESSMENT, REVIWING LABS AND IMAGING, DECISION MAKING, AND DOCUMENTATION GREATER THAN 75 MINUTES. H&P Reviewed: Yes Patient was examined?: Yes
--- NOTE | 2022-05-16 08:10 | RAD ---
HISTORYFoot injurySTUDYLeft foot three viewsCOMPARISONJune 2017FINDINGSMarked osteopenia consistent with age. No definite fracture or dislocation, joint deformity or localized soft tissue deformity.IMPRESSIONNo acute findings left foot.Electronically signed by: RAMIRO FARAH (May 16, 2022 08:09:08)
== END 2022-05-14 12:20 | disposition home health service (06) ==
LOC: U → MED/SURG 11:40
PROVIDERS: ADMIT Internal Medicine; ATTEND Internal Medicine

== ENCOUNTER 2022-06-02 10:15 | Observation (INO) ==
[2022-06-02 11:09] LABS: BASOPHILS # (AUTO) 0.1 X10^3/uL (0.0-0.1); BASOPHILS % (AUTO) 1.2 % (0.2-1.0); EOSINOPHILS # (AUTO) 0.1 x10^3/uL (0.0-0.2); EOSINOPHILS % (AUTO) 1.1 % (0.9-2.9); HEMATOCRIT 41.7 % (36.0-47.0); HEMOGLOBIN 14.2 g/dL (12.0-16.0); LYMPHOCYTES # (AUTO) 2.5 X10^3/uL (1.3-2.9); LYMPHOCYTES % (AUTO) 27.4 % (21.0-51.0); MEAN CORPUSCULAR HEMOGLOBIN 31.2 pg (27.0-34.0); MEAN CORPUSCULAR HGB CONC 34.2 g/dL (33.0-35.0); MEAN CORPUSCULAR VOLUME 91.4 fL (80.0-100.0); MEAN PLATELET VOLUME 8.7 fL (7.4-11.0); MONOCYTES # (AUTO) 0.6 x10^3/uL (0.3-0.8); MONOCYTES % (AUTO) 7.1 % (0.0-13.0); NEUTROPHILS # (AUTO) 5.7 x10^3/uL (2.2-4.8); NEUTROPHILS % (AUTO) 63.2 % (42.0-75.0); RED BLOOD COUNT 4.56 X10^6/uL (3.5-5.4); RED CELL DISTRIBUTION WIDTH 15.4 % (11.6-16.5); WHITE BLOOD COUNT 9.1 X10^3/uL (3.6-10.0)
[2022-06-02 11:09] LABS: BILIRUBIN,URINE NEGATIVE (NEGATIVE); BLOOD/HEMOGLOBIN,URINE NEGATIVE (NEGATIVE); GLUCOSE, URINE NEGATIVE (NEGATIVE); KETONES,URINE NEGATIVE (NEGATIVE); LEUKOCYTE ESTERASE ,URINE 1+ (NEGATIVE); NITRITES,URINE NEGATIVE (NEGATIVE); PROTEIN,URINE NEGATIVE (NEGATIVE); UROBILINOGEN,URINE NORMAL (NORMAL)
--- NOTE | 2022-06-02 11:11 | RAD ---
HISTORYChest painSTUDYChest AP [id number]/06/2022FINDINGSTher e is a pacemaker present on the left obscuring a portion of the left lower lobe. There is a right-sided port in good position. Heart is enlarged. No congestive heart failure is noted. Aorta is calcified. Lung cordero are clear. Bony thorax is unremarkable.IMPRESSIONMild cardiomegaly without congestive heart failureLungs clearElectronically signed by: RC MAI (Jun 02, 2022 11:10:04)
--- NOTE | 2022-06-02 11:15 | DR.CP ---
HPI Time Seen Time Seen by Provider: 06/02/22 11:13 PCP Primary Care Physician: Damaso HPI Comment HPI Comment: An 86 y/o female presenting with c/o SOB, hurting in her chest, back and arms and weakness. These symptoms have been ongoing since 2 weeks ago, but worsened yesterday. She can't describe the discomfort in the chest. It just hurts, she says. She denies nausea, vomiting or diaphoresis. Complaint Chief Complaint:: Pt c/o pain in chest, back and left arm. She states this started at 0400 this am. Pt took Aspirin 325mg at 0700. COVID-19 Coronavirus risk:travel/contact w/high risk person: No Has patient experienced Coronavirus symptoms: No Coronavirus symptoms experienced: Shortness of Breath Reviewed Nurses Notes Review: Yes Source History Provided: Patient Mode of Arrival Mode of Arrival: Wheelchair Timing Onset of Chief Complaint: 06/02/22 Location Location of Chest Pain: Chest Chest Pain Radiation Location: None Context Onset: At rest Cardiac Risk Factors: Hyperlipidemia and HTN PE Risk Factors: None History of: Aspirin in last 24 hours Prehospital Care: ASA Associated Signs and Symptoms Associated Signs and Symptoms: None PMH PMH Past Medical History: Yes Past Medical History: Anemia, Arthritis, CHF, Coronary Artery Disease, Diabetes, Dyslipidemia, GERD, Hypertension, Hypothyroidism, Kidney Stones and Sleep Apnea Past Surgical History: Yes Surgical History: Angioplasty/Stents, Bowel Resection, Hysterectomy, Mastectomy and Other Family History History of Family Medical Conditions: Yes Family Medical History: [place], Coronary Artery Disease and Hypertension Social History Does patient currently use any type of tobacco product: No Have you used tobacco products in the last 12 months: No Type of Tobacco Use: None Does any household member use tobacco: No Alcohol Use: None Do you use any recreational Drugs:: No Lives With: Family Lives Where: Home Travel Risk Coronavirus risk:travel/contact w/high risk person: No Has patient experienced Coronavirus symptoms: No Infectious screening In the last 2 months have you had wt loss of >10#?: NO Have you had fever, night sweats or hemotysis?: No Have you traveled outside the country in the last 6 months?: No Isolation: Standard ROS Review of Systems Constitutional: Weakness Eyes: No Symptoms Reported ENTM: No Symptoms Reported Respiratoy: Non-Productive Cough and Short of Breath Cardiovascular: Chest Pain Gastrointestinal/Abdominal: No Symptoms Reported Genitourinary: No Symptoms Reported Neurological: No Symptoms Reported Musculoskeletal: No Symptoms Reported Integumentary: No Symptoms Reported Hematologic/Lymphatic: No Symptoms Reported Endocrine: No Symptoms Reported Psychiatric: No Symptoms Reported All Other Systems: Reviewed and Negative PE Vitals Vitals: Temperature 97.0 F Pulse Rate 69 Respiratory Rate 18 Blood Pressure [Left Arm] 204/96 Blood Pressure 124/74 O2 Sat by Pulse Oximetry 95 General Limitations: No Limitations General Appearance: Alert and In No Apparent Distress Head Head Exam: Normal Inspection, Atraumatic and Normocephalic Eyes Eye exam: Normal Appearance and EOMI ENT ENT Exam: Normal Exam, Normal Oropharynx, Normal External Ear Exam, Mucous Membranes Moist and TM's Normal Bilaterally Chest Chest Inspection: Normal Inspection and Symmetric Chest Wall Rise Respiratory Respiratory Exam: Normal Lung Sounds Bilat Cardiovascular Cardiovascular Exam: Regular Rate, Normal Rhythm, Normal Heart Sounds, +S1 and +S2 Edema: Normal Abdominal Exam Abdominal Exam: Normal Inspection, Normal Bowel Sounds and Soft Extremities Extremities Exam: Normal Inspection and Full ROM Back Back Exam: Normal Inspection and Full ROM Neurologic Neurological Exam: Alert and Oriented X3 Psychiatric Psychiatric Exam: Normal Affect and Normal Mood Skin Skin Exam: Dry, Intact and Normal Color COURSE Treatment Treatment: Her test results were discussed with her. I spoke with her PCP (Dr. Petit) and got OK to place her in Observation for a VQ Scan in a.m. Reevaluation 1st: Unchanged Education/Counseling Education/Counseling: Patient, Family, Education and Counseling Educated On: Treatment, Diagnosis, Prognosis and Needs for Follow Up ROR Labs Reviewed Result Diagrams: 06/02/22 10:53 06/02/22 10:53 Laboratory: WBC 9.1 X10^3/uL (3.6-10.0) 06/02/22 10:53 RBC 4.56 X10^6/uL (3.5-5.4) 06/02/22 10:53 Hgb 14.2 g/dL (12.0-16.0) 06/02/22 10:53 Hct 41.7 % (36.0-47.0) 06/02/22 10:53 MCV 91.4 fL (80.0-100.0) 06/02/22 10:53 MCH 31.2 pg (27.0-34.0) 06/02/22 10:53 MCHC 34.2 g/dL (33.0-35.0) 06/02/22 10:53 RDW 15.4 % (11.6-16.5) 06/02/22 10:53 Plt Count 206 X10^3/uL (150.0-450.0) 06/02/22 10:53 MPV 8.7 fL (7.4-11.0) 06/02/22 10:53 Neut % (Auto) 63.2 % (42.0-75.0) 06/02/22 10:53 Lymph % (Auto) 27.4 % (21.0-51.0) 06/02/22 10:53 [place] % (Auto) 7.1 % (0.0-13.0) 06/02/22 10:53 Eos % (Auto) 1.1 % (0.9-2.9) 06/02/22 10:53 Baso % (Auto) 1.2 % (0.2-1.0) H 06/02/22 10:53 Neut # (Auto) 5.7 x10^3/uL (2.2-4.8) H 06/02/22 10:53 Lymph # (Auto) 2.5 X10^3/uL (1.3-2.9) 06/02/22 10:53 [place] # (Auto) 0.6 x10^3/uL (0.3-0.8) 06/02/22 10:53 Eos # (Auto) 0.1 x10^3/uL (0.0-0.2) 06/02/22 10:53 Baso # (Auto) 0.1 X10^3/uL (0.0-0.1) 06/02/22 10:53 Absolute Nucleated RBC 0.0 /100WBC 06/02/22 10:53 PT 14.8 SECONDS (11.8-14.3) 06/02/22 10:53 INR Target Range - 06/02/22 10:53 INR 1.20 (0.8-1.3) 06/02/22 10:53 APTT 27.9 SECONDS (22.9-36.5) 06/02/22 10:53 PTT Comment - 06/02/22 10:53 D-Dimer 1.30 ug/ml (0.0-0.57) H 06/02/22 10:53 Sodium 139 mmol/L (136-145) 06/02/22 10:53 Corrected Sodium 141 mmol/L (136-145) 06/02/22 10:53 Potassium 4.2 mmol/L (3.5-5.1) 06/02/22 10:53 Chloride 103 mmol/L (98-107) 06/02/22 10:53 Carbon Dioxide 30.6 mmol/L (21-32) 06/02/22 10:53 BUN 22 mg/dL (7-18) H 06/02/22 10:53 Creatinine 2.01 mg/dL (0.55-1.02) H 06/02/22 10:53 Est GFR (MDRD) Af Amer 30 (>60) L 06/02/22 10:53 Est GFR (MDRD) Non-Af 25 (>60) L 06/02/22 10:53 Glucose 167 mg/dL (65-99) H 06/02/22 10:53 Calcium 8.9 mg/dL (8.5-10.1) 06/02/22 10:53 Corrected Calcium TNP 06/02/22 10:53 Magnesium 2.1 mg/dL (1.7-2.9) 06/02/22 10:53 Total Bilirubin 0.70 mg/dL (0.2-1.0) 06/02/22 10:53 AST 20 Units/L (15-37) 06/02/22 10:53 ALT < 6 Units/L (12-78) L 06/02/22 10:53 Alkaline Phosphatase 62 Units/L (46-116) 06/02/22 10:53 Creatine Kinase 40 Units/L (26-192) 06/02/22 10:53 Troponin I High Sens 11.5 ng/L (4.0-60.0) 06/02/22 10:53 Total Protein 6.5 g/dL (6.4-8.2) 06/02/22 10:53 Albumin 3.4 g/dL (3.4-5.0) 06/02/22 10:53 Globulin 3.1 g/dL (2.5-4.5) 06/02/22 10:53 Albumin/Globulin Ratio 1.1 Ratio (1.1-2.1) 06/02/22 10:53 Specimen Type Clean catch urine 06/02/22 10:55 Urine Color Yellow (YELLOW) 06/02/22 10:55 Urine Appearance Slightly hazy (CLEAR) 06/02/22 10:55 Urine pH 6.0 (5.0 - 8.0) 06/02/22 10:55 Ur Specific [place] 1.010 (1.000-1.030) 06/02/22 10:55 Urine Protein Negative (NEGATIVE) 06/02/22 10:55 Urine Glucose (UA) Negative (NEGATIVE) 06/02/22 10:55 Urine Ketones Negative (NEGATIVE) 06/02/22 10:55 Urine Blood Negative (NEGATIVE) 06/02/22 10:55 Urine Nitrite Negative (NEGATIVE) 06/02/22 10:55 Urine Bilirubin Negative (NEGATIVE) 06/02/22 10:55 Urine Urobilinogen Normal (NORMAL) 06/02/22 10:55 Ur Leukocyte Esterase 1+ (NEGATIVE) 06/02/22 10:55 Urine RBC None seen /HPF (0-3) 06/02/22 10:55 Urine WBC 0-2 /HPF (0-5) 06/02/22 10:55 Ur Squamous Epith Cells Few /HPF (NEGATIVE) 06/02/22 10:55 Urine Bacteria 2+ /HPF (NEGATIVE) 06/02/22 10:55 Ur Culture Indicated? Yes/culture set up 06/02/22 10:55 EKG Rate: 69 [place]: Normal Rhythm: Paced Block: None Opioid Opioid Risk Tool Age (Gagan box if 16-45): No History of Preadolescent Sexual Abuse: No Total: 0 Total Score Risk Category: Low Risk Copyright: Piotr FIGUEROA predicting aberrant behaviors Discharge Plan Diagnosis Discharge Problem: D-dimer, elevated, Generalized weakness, Parkinson disease CAD (coronary artery disease) Qualifiers: Coronary Disease-Associated Artery/Lesion type: [place] artery [place] vs. transplanted heart: [place] heart Associated angina: without angina Qualified Code(s): I25.10 - Atherosclerotic heart disease of [place] coronary artery without angina pectoris CHF (congestive heart failure) Qualifiers: Heart failure type: unspecified Heart failure chronicity: chronic Qualified Code(s): I50.9 - Heart failure, unspecified Hyperlipidemia Qualifiers: Hyperlipidemia type: mixed hyperlipidemia Qualified Code(s): E78.2 - Mixed hyperlipidemia HTN (hypertension) Qualifiers: Hypertension type: primary hypertension Qualified Code(s): I10 - Essential (primary) hypertension Lower back pain Qualifiers: Chronicity: chronic Back pain laterality: unspecified Sciatica presence: without sciatica Qualified Code(s): M54.50 - Low back pain, unspecified Chronic kidney disease (CKD) Qualifiers: Chronic kidney disease stage: stage 3 (moderate) Chronic kidney disease stage 3 subtype: stage 3b (GFR 30-44) Qualified Code(s): N18.32 - Chronic kidney disease, stage 3b Diabetes mellitus, type II Qualifiers: Diabetes mellitus intermodal dispatcher insulin use: without intermodal dispatcher use Diabetes mellitus complication status: with kidney complications Diabetes mellitus complication detail: with chronic kidney disease Chronic kidney disease stage: stage 3 (moderate) Chronic kidney disease stage 3 subtype: stage 3b (GFR 30-44) Qualified Code(s): E11.22 - Type 2 diabetes mellitus with diabetic chronic kidney disease Hypothyroid Qualifiers: Hypothyroidism type: acquired Qualified Code(s): E03.9 - Hypothyroidism, unspecified Discharge Plan Patient Disposition: 09 ADMITTED INPATIENT Condition: Stable Prescriptions: No Action benzonatate 200 mg capsule 1 cap PO PRN PRN (Reason: Cough) omeprazole 40 mg capsule,delayed release(DR/EC) 1 cap PO DAILY ondansetron 8 mg tablet,disintegrating 8 mg PO Q6H PRN (Reason: Nausea) Label Comments: TAKE 1 TABLET BY MOUTH THREE TIMES A DAY famotidine 20 mg tablet 1 tab PO DAILY amlodipine 10 mg tablet 1 tab PO DAILY metoprolol succinate 25 mg tablet extended release 24 hr 1 tab PO BID atorvastatin 10 mg tablet 1 tab PO HS donepezil 10 mg tablet 1 tab PO DAILY pramipexole 0.5 mg tablet citalopram 20 mg tablet 1 tab PO DAILY hydrochlorothiazide 12.5 mg capsule 1 cap PO DAILY gabapentin 300 mg capsule 1 cap PO TID furosemide 20 mg tablet 1 tab PO BID levothyroxine 112 mcg tablet 1 tab PO DAILY gentamicin 0.1 % Ointment 1 applic TOP BID Qty: 1 3RF Rx Instructions: APPLY TO WOUNDS ON FINGERS TWICE A DAY Health Concerns: Post Hospitalization: new medications and changes needed to prevent readmission or further decline. Pt educated and given instructions on all concerns. Plan of Treatment: Continue with present treatment and follow up plan. Pt is to keep follow up appointment as instructed and take medications as ordered. Orders to Discharge Patient Discharge Orders: Transfer (Routine); Ordered 06/02/22 Ordered By: RASTA SLAUGHTER Follow ups/Referrals Follow ups/Referrals: Ramiro Petit [Primary Care Provider] - 3 days ADDITIONAL NOTES Additional Notes Additional Notes: Name: DALLAS TSAI BAcct#: [id number]: [id number]: [id number]: FLocation: EROrder Number(s): [id number](s):CHEST, 1 VIEW Ordering Physician: RASTA SLAUGHTER Primary Care: Ramiro Petit Service Date: 06/02/22 Service Time: 1041 HISTORY Chest pain STUDY Chest AP portable COMPARISON 05/12/2022 FINDINGS Ther e is a pacemaker present on the left obscuring a portion of the left lower lobe. There is a right-sided port in good position. Heart is enlarged. No congestive heart failure is noted. Aorta is calcified. Lung cordero are clear. Bony thorax is unremarkable. IMPRESSION Mild cardiomegaly without congestive heart failure Lungs clear Electronically signed by: RC MAI (Jun 02, 2022 11:10:04) Report Electronically signed: 06/02/22 1111 CC: Rasta Slaughter
[2022-06-02 11:16] LABS: APPEARANCE,URINE SLIGHTLY HAZY (CLEAR); BACTERIA,URINE 2+ /HPF (NEGATIVE); COLOR,URINE YELLOW (YELLOW); RBC,URINE NONE SEEN /HPF (0-3); SQUAMOUS EPITHELIAL CELL,UR FEW /HPF (NEGATIVE)
[2022-06-02 11:36] LABS: ALANINE AMINOTRANSFERASE < 6 Units/L (12-78); ALBUMIN 3.4 g/dL (3.4-5.0); ALKALINE PHOSPHATASE 62 Units/L (46-116); ASPARTATE AMINO TRANSFERASE 20 Units/L (15-37); BLOOD UREA NITROGEN 22 mg/dL (7-18); CALCIUM 8.9 mg/dL (8.5-10.1); CARBON DIOXIDE 30.6 mmol/L (21-32); CHLORIDE 103 mmol/L (98-107); COR NA(FOR HYPERGLY) 141 mmol/L (136-145); CREATINE KINASE 40 Units/L (26-192); CREATININE 2.01 mg/dL (0.55-1.02); MAGNESIUM 2.1 mg/dL (1.7-2.9); SODIUM 139 mmol/L (136-145); TOTAL PROTEIN 6.5 g/dL (6.4-8.2); eGFR NON BLACK RACES 25 (>60)
[2022-06-02 16:26] VITALS: BMI 24.7
[2022-06-02] MEDS: TYLENOL 325 MG TAB PO PRN (16:49)
[2022-06-02] MEDS: SNACK - Diabetic Appropriate PO SCH (20:00)
[2022-06-02] MEDS: NovoLIN R (or HumuLIN R) SUBCUT PRN (22:40)
[2022-06-03 04:55] LABS: BASOPHILS % (AUTO) 0.6 % (0.2-1.0); EOSINOPHILS # (AUTO) 0.1 x10^3/uL (0.0-0.2); EOSINOPHILS % (AUTO) 1.6 % (0.9-2.9); HEMATOCRIT 39.3 % (36.0-47.0); HEMOGLOBIN 13.4 g/dL (12.0-16.0); LYMPHOCYTES # (AUTO) 2.5 X10^3/uL (1.3-2.9); LYMPHOCYTES % (AUTO) 33.9 % (21.0-51.0); MEAN CORPUSCULAR HGB CONC 34.1 g/dL (33.0-35.0); MEAN CORPUSCULAR VOLUME 90.9 fL (80.0-100.0); MEAN PLATELET VOLUME 9.1 fL (7.4-11.0); MONOCYTES # (AUTO) 0.6 x10^3/uL (0.3-0.8); NEUTROPHILS # (AUTO) 4.2 x10^3/uL (2.2-4.8); NEUTROPHILS % (AUTO) 55.9 % (42.0-75.0); RED BLOOD COUNT 4.33 X10^6/uL (3.5-5.4); RED CELL DISTRIBUTION WIDTH 15.2 % (11.6-16.5); WHITE BLOOD COUNT 7.4 X10^3/uL (3.6-10.0)
[2022-06-03 05:12] LABS: ALANINE AMINOTRANSFERASE 11 Units/L (12-78); ALKALINE PHOSPHATASE 56 Units/L (46-116); ASPARTATE AMINO TRANSFERASE 18 Units/L (15-37); BLOOD UREA NITROGEN 23 mg/dL (7-18); CALCIUM 8.6 mg/dL (8.5-10.1); CARBON DIOXIDE 32.1 mmol/L (21-32); CHLORIDE 103 mmol/L (98-107); COR CA(FOR HYPOALB) 9.4 mg/dL (8.5-10.1); SODIUM 141 mmol/L (136-145); eGFR NON BLACK RACES 27 (>60)
[2022-06-03] MEDS ORDERED: ZOFRAN TAB 4 MG PO PRN (10:24)
[2022-06-03] MEDS ORDERED: TESSALON PERLES PO PRN (10:24)
[2022-06-03] MEDS: LOVENOX INJ 30 MG SYR SC SCH (10:27)
[2022-06-03] MEDS ORDERED: [UNRECOGNIZED DRUG - REMARK] PO SCH (10:30)
--- NOTE | 2022-06-03 11:26 | RAD ---
HISTORYCHEST PAIN, ELEVATED D-DIMER, 1.30STUDYCHEST, 1 [id number]/27/2022FINDINGSThe cardiomediastinal silhouette is stable. Right chest port unchanged. Left-sided pacer and pacer wires unchanged. Bilateral airspace opacities, left greater than right. No pneumothorax or effusion. The bony thorax appears intact. Cholecystectomy clips.IMPRESSIONBilateral airspace opacities concerning for pneumonia. Recommend follow-up to resolution.Electronically signed by: RC MAI (Jun 03, 2022 11:24:50)
[2022-06-03] MEDS: NS 1,000 ML IV 1,000 ML IV SCH (11:51)
[2022-06-03] MEDS: CELEXA PO SCH (11:52)
[2022-06-03] MEDS: MIRAPEX TAB 1 MG PO SCH ×3 (11:53→21:34)
[2022-06-03] MEDS: SYNTHROID 112 mcg TAB PO SCH (11:53)
[2022-06-03] MEDS: PEPCID TAB 20 MG PO SCH ×2 (11:53→20:31)
[2022-06-03] MEDS: PriLOSEC PO SCH (11:54)
[2022-06-03] MEDS: TOPROL XL PO SCH ×2 (11:54→20:31)
[2022-06-03] MEDS: SINEMET (PLAIN) 25/250 MG PO SCH ×3 (11:54→21:35)
--- NOTE | 2022-06-03 13:12 | NM ---
HISTORYElevated D-dimer chest painEXAMPERFUSION LUNG SCAN ONLYCOMPARISONChest x-rays dated 06/03/[id number] millicuries of MAA was administered for evaluation of perfusionFINDINGSThere is symmetric perfusion throughout the lungs. There is mild cardiomegaly. No evidence of perfusion defectIMPRESSIONNo evidence of pulmonary embolism.Electronically signed by: Lucero Arreola (Jun 03, 2022 13:10:33)
--- NOTE | 2022-06-03 20:19 | DR.H&P ---
H&P - History & Physical for Day of: H&P Date: 06/03/22 - Chief Complaint Chief Complaint: SOB, WEAKNESS, PAIN TO CHEST, ARMS, LEGS - History of Present Illness History of Present Illness: IS A 86 YEAR OLD PATIENT OF OURS. SHE PRESENTED TO THE ER WITH COMPLAINTS OF SHORTNESS OF BREATH, WEAKNESS, AND PAIN TO THE CHEST, ARMS, AND LEGS. CHEST HAS BEEN ONGOING FOR THE PAST TWO WEEKS, BUT HAS WORSENED OVER THE PAST TWO DAYS. PAIN IS DESCRIBED DULL AND INTERMITTENT. SHE DENIES NAUSEA, VOMITING, OR DIAPHORESIS. HER PMH INCLUDES: CAD, HTN, DYSLIPIDEMIA, DM II, HYPOTHYROIDISM, ANEMIA, GERD, ARTHRITIS, KIDNEY STONES, SLEEP APNEA, CHF, HYSTERECTOMY, MASTECTOMY, BOWEL RESECTION, AND CARDIAC STENTS. ON ARRIVAL TO THE HOSPITAL, VITALS WERE 97.0-69-20-98%-114/64. LABS WERE OBTAINED. WBC 9.1, RBC 4.56, HGB 14.2, HCT 41.7, PLT COUNT 206, SODIUM 139, POTASSIUM 4.2, CHLORIDE 103, BUN 22, CREATININE 2.01, GLUCOSE 167, CALCIUM 8.9, MAGNESIUM 2.1, TOTAL BILI 0.70, AST 20, ALT <6, ALK PHOS 62, CREATINE KINASE 40, TOTAL PROTEIN 6.5, ALBUMIN 3.4. CARDIAC ENZYMES WERE WITHIN NORMAL LIMITS. A URINALYSIS WAS OBTAINED AND REVEALED: WBC 0-2, RBC NONE SEEN, LEUKOCYTES 1+, BACTERIA 2+. COVID-19 NEGATIVE. A URINE CULTURE WAS SET UP. A CHEST XRAY WAS OBTAINED AND REVEALED: There is a pacemaker present on the left obscuring a portion of the left lower lobe. There is a right-sided port in good position. Heart is enlarged. No congestive heart failure is noted. Aorta is calcified. Lung cordero are clear. Bony thorax is unremarkable. EKG REVEALED PACED RHYTHM WITH HR 79. PATIENT WAS ADMITTED TO THE HOSPITAL FOR FURTHER EVALUATION AND TREATMENT OF SHORTNESS OF BREATH, ELEVATED D-DIMER, ACUTE ON CHRONIC KIDNEY DISEASE, CAD, HTN, DM. SHE WAS STARTED ON NORMAL SALINE AT 75 ML/HR, LOVENOX 30MG SC DAILY, OTBS ACHS, HUMULIN R SLIDING SCALE, AND HER HOME MEDICATIONS WERE RESUMED. WE WILL OBTAIN A VQ SCAN TODAY. OTHERWISE, WE PLAN TO FOLLOW-UP WITH AM LABS AND CONTINUE TO MONITOR. WE WILL HAVE PHYSICAL THERAPY EVALUATE PATIENT. TIME SPENT ON CLINICAL ASSESSMENT, REVIEWING LABS AND IMAGING, DECISION MAKING, AND DOCUMENTATION GREATER THAN 75 MINUTES. - Past Medical History Past Medical History: Coronary Artery Disease, Hypertension, Dyslipidemia, Diabetes, Hypothyroidism, Anemia, GERD, Arthritis, Kidney Stones, Sleep Apnea, CHF Additional Medical History: Vision Deficit, Parkinson's Disease, Atrial Fibrillation, Bronchitis, Pneumonia, Constipation, Diarrhea, Colon Cancer, Breast Cancer, Urinary Tract Infections, Muscle Weakness, Back Pain, Neuropathy, Previous Blood Transfusion - Past Surgical History Surgical History: Angioplasty/Stents, Bowel Resection, Hysterectomy, Mastectomy, Other Additional Surgical History: Pacemaker, Two Colon Resection's for Colon Cancer, Left Partial Mastectomy for Breast Cancer, Right Chest Wall Port a cath, Left PAU - Family History Family Medical History: [place], Coronary Artery Disease, Hypertension - Social History Does patient currently use any type of tobacco product: No Have you used tobacco products in the last 12 months: No Type of Tobacco Use: None Does any household member use tobacco: No Alcohol Use: None Drug Use: None - Medications Home Medications: latex Allergy (Unknown, Verified 03/01/22 09:33) sulfamethoxazole [From Bactrim] Adverse Reaction (Unknown, Verified 03/01/22 09:33) trimethoprim [From Bactrim] Adverse Reaction (Unknown, Verified 03/01/22 09:33) ADHESIVE TAPE Allergy (Unknown, Uncoded 03/01/22 09:33) CONTINUE taking the following medications amlodipine 5 mg tablet 5 mg PO HS 06/03/22 [History] aspirin 81 mg tablet,delayed release 81 mg PO HS 06/03/22 [History] calcium cmb [id number] 120 mg-1,000 unit-10 mg tablet (Vitamin D-3 with Aloe) 1 tab PO DAILY 06/03/22 [History] carbidopa 25 mg-levodopa 250 mg tablet 1 tab PO TID 06/03/22 [History] glimepiride 4 mg tablet (Amaryl) 4 mg PO BID 06/03/22 [History] metoprolol succinate 25 mg tablet,extended release 24 hr 25 mg PO BID 06/03/22 [History] - Review of Systems Constitutional: Weakness Eyes: No Symptoms Reported ENT: No Symptoms Reported Respiratory: Shortness of Breath, SOB with Excertion Cardiovascular: Chest Pain Gastrointestinal: No Symptoms Reported Genitourinary: No Symptoms Reported Musculoskeletal: See HPI, Arm Pain, Leg Pain Skin: No Symptoms Reported Neurological: Weakness - Physical Exam Vital Signs: Temperature 97.6 F Pulse Rate [Left Brachial] 79 Pulse Rate 69 Respiratory Rate 18 Blood Pressure [Left Arm] 150/89 Blood Pressure 124/74 O2 Sat by Pulse Oximetry 92 Oriented: Normal Eyes: Normal Ear: Normal Nose: Normal Throat: Normal Respiratory: Diminished Throughout Cardiovascular: Normal : Normal Auscultation: Bowel Sounds: Normal Palpation: Normal Tenderness: Normal Skin: Normal Musculoskeletal: Right, Left, Arm, Leg, Tender Psychiatric: Normal Mood Description: Calm Affect: Normal Speech Pattern: Clear - Assessment/Plan (1) Acute on chronic renal failure Qualifiers: Acute renal failure type: unspecified Chronic kidney disease stage: unspecified stage Qualified Code(s): N17.9 - Acute kidney failure, unspecified; N18.9 - Chronic kidney disease, unspecified Status: Acute Plan: ADMIT, NORMAL SALINE AT 75 ML/HR, LOVENOX 30MG SC DAILY, OTBS ACHS, HUMULIN R SLIDING SCALE, AND HER HOME MEDICATIONS WERE RESUMED. 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: without longshore equipment operator use Diabetes mellitus complication status: with kidney complications Diabetes mellitus complication detail: with chronic kidney disease Chronic kidney disease stage: stage 3 (moderate) Chronic kidney disease stage 3 subtype: stage 3b (GFR 30- 44) Qualified Code(s): E11.22 - Type 2 diabetes mellitus with diabetic chronic kidney disease; N18.32 - Chronic kidney disease, stage 3b Status: Chronic (5) Parkinson disease Status: Chronic (6) HTN (hypertension) Qualifiers: Hypertension type: primary hypertension Qualified Code(s): I10 - Essential (primary) hypertension Status: Chronic (7) CAD (coronary artery disease) Qualifiers: Coronary Disease-Associated Artery/Lesion type: [place] artery [place] vs. transplanted heart: [place] heart Associated angina: without angina Qualified Code(s): I25.10 - Atherosclerotic heart disease of [place] coronary artery without angina pectoris Status: Chronic - Review H&P Reviewed: No Patient was examined?: No - Allergies Allergies/Adverse Reactions: Allergies Allergy/AdvReac Type Severity Reaction Status Date / Time latex Allergy Unknown Verified 03/01/22 09:33 sulfamethoxazole AdvReac Unknown Verified 03/01/22 09:33 [From Bactrim] trimethoprim [From Bactrim] AdvReac Unknown Verified 03/01/22 09:33 ADHESIVE TAPE Allergy Unknown Uncoded 03/01/22 09:33
[2022-06-03] MEDS: SNACK - Diabetic Appropriate PO SCH (20:30)
[2022-06-03] MEDS ORDERED: ARICEPT TAB 10 MG PO SCH (21:00)
[2022-06-03] MEDS ORDERED: LIPITOR TAB 10 MG PO SCH (21:00)
[2022-06-03] MEDS ORDERED: ASPIRIN EC 81 MG PO SCH (21:00)
[2022-06-03] MEDS ORDERED: NORVASC TAB 5 MG PO SCH (21:00)
[2022-06-03] MEDS: TYLENOL 325 MG TAB PO PRN (21:41)
[2022-06-03] MEDS: NovoLIN R (or HumuLIN R) SUBCUT PRN (21:46)
[2022-06-04] MEDS: NS 1,000 ML IV 1,000 ML IV SCH (01:09)
[2022-06-04] MEDS: MIRAPEX TAB 1 MG PO SCH (05:30)
[2022-06-04] MEDS: SINEMET (PLAIN) 25/250 MG PO SCH (05:31)
[2022-06-04 05:52] LABS: BASOPHILS % (AUTO) 0.4 % (0.2-1.0); EOSINOPHILS # (AUTO) 0.1 x10^3/uL (0.0-0.2); EOSINOPHILS % (AUTO) 1.7 % (0.9-2.9); HEMATOCRIT 39.7 % (36.0-47.0); HEMOGLOBIN 13.6 g/dL (12.0-16.0); LYMPHOCYTES # (AUTO) 2.5 X10^3/uL (1.3-2.9); LYMPHOCYTES % (AUTO) 31.3 % (21.0-51.0); MEAN CORPUSCULAR HEMOGLOBIN 30.9 pg (27.0-34.0); MEAN CORPUSCULAR HGB CONC 34.3 g/dL (33.0-35.0); MEAN CORPUSCULAR VOLUME 90.2 fL (80.0-100.0); MEAN PLATELET VOLUME 9.1 fL (7.4-11.0); MONOCYTES # (AUTO) 0.6 x10^3/uL (0.3-0.8); MONOCYTES % (AUTO) 7.7 % (0.0-13.0); NEUTROPHILS # (AUTO) 4.7 x10^3/uL (2.2-4.8); NEUTROPHILS % (AUTO) 58.9 % (42.0-75.0); RED CELL DISTRIBUTION WIDTH 14.6 % (11.6-16.5)
[2022-06-04 05:57] LABS: ALANINE AMINOTRANSFERASE < 6 Units/L (12-78); ALBUMIN 3.1 g/dL (3.4-5.0); ALKALINE PHOSPHATASE 55 Units/L (46-116); ASPARTATE AMINO TRANSFERASE 19 Units/L (15-37); BLOOD UREA NITROGEN 19 mg/dL (7-18); CALCIUM 8.7 mg/dL (8.5-10.1); CHLORIDE 103 mmol/L (98-107); COR CA(FOR HYPOALB) 9.4 mg/dL (8.5-10.1); CREATININE 1.55 mg/dL (0.55-1.02); SODIUM 139 mmol/L (136-145); eGFR NON BLACK RACES 34 (>60)
[2022-06-04] MEDS ORDERED: KLOR-CON PO PRN (06:32)
[2022-06-04] MEDS ORDERED: MICRO K EXTEN CAP 10 MEQ PO PRN (06:32)
[2022-06-04] MEDS ORDERED: POTASSIUM CHLORIDE LIQ 20 MEQ UDC PO PRN (06:32)
[2022-06-04] MEDS ORDERED: POTASSIUM CHL 60 MEQ/NS 0.45% 500 ML IV PRN (06:32)
[2022-06-04] MEDS ORDERED: POTASSIUM CHL 40 MEQ/NS 0.45% 500 ML IV PRN (06:32)
[2022-06-04] MEDS ORDERED: K-DUR TAB 20 MEQ PO PRN (06:32)
[2022-06-04] MEDS ORDERED: K-RIDER 10 MEQ/NS 100 ML 10 MEQ/100 ML BAG IV PRN (06:32)
[2022-06-04] MEDS: TOPROL XL PO SCH (08:41)
[2022-06-04] MEDS: PriLOSEC PO SCH (08:42)
[2022-06-04] MEDS: SYNTHROID 112 mcg TAB PO SCH (08:42)
[2022-06-04] MEDS: PEPCID TAB 20 MG PO SCH (08:42)
[2022-06-04] MEDS: CELEXA PO SCH (08:42)
[2022-06-04 10:44] VITALS: BP 142/73
[2022-06-04] MEDS: LOVENOX INJ 30 MG SYR SC SCH (10:45)
[2022-06-05] MEDS ORDERED: PEPCID TAB 20 MG PO SCH (09:00)
== END 2022-06-04 11:44 | disposition home health service (06) ==
LOC: MED/SURG 10:15 → ER 10:15 → MED/SURG 15:07
PROVIDERS: ADMIT Internal Medicine; ATTEND Internal Medicine
DX: N17.8 Other acute kidney failure; R06.02 Shortness of breath; I95.89 Other hypotension; R79.1 Abnormal coagulation profile; E78.2 Mixed hyperlipidemia; M54.50 Low back pain, unspecified; E11.22 Type 2 diabetes mellitus with diabetic chronic kidney disease; N18.32 Chronic kidney disease, stage 3b; Z95.0 Presence of cardiac pacemaker; I25.10 Atherosclerotic heart disease of native coronary artery without angina pectoris; G20 Parkinson's disease; R07.89 Other chest pain; B96.29 Other Escherichia coli [E. coli] as the cause of diseases classified elsewhere; I13.0 Hypertensive heart and chronic kidney disease with heart failure and stage 1 through stage 4 chronic kidney disease, or unspecified chronic kidney disease; Z20.822 Contact with and (suspected) exposure to COVID-19; K21.9 Gastro-esophageal reflux disease without esophagitis; Z79.899 Other long term (current) drug therapy; R94.31 Abnormal electrocardiogram [ECG] [EKG]; E03.8 Other specified hypothyroidism; E11.65 Type 2 diabetes mellitus with hyperglycemia; I50.9 Heart failure, unspecified

== ENCOUNTER 2022-12-08 13:57 | Inpatient (IN) ==
--- NOTE | 2022-12-08 14:11 | DR.AMS ---
HPI Time Seen Time Seen by Provider: 12/08/22 14:10 PCP Primary Care Physician: MD EDUAR HPI Comment HPI Comment: An 87 y/o female presents via EMS with the unit staff stating they had a call about the pt. being noted sith confusion by her spouse since this morning. No other information is currently available. Reportedly, her spouse saw her well was at about midnight. Reviewed Nurses Notes Reviewed: Yes Source History Provided: EMS Mode of Arrival Mode of Arrival: EMS Timing Onset of Chief Complaint: 12/08/22 Symptoms: Unchanged Symptom Onset: Known Onset of Symptoms Start Date: 01/05/23 Quality Quality: Confusion Context Recent: None History Of: None PMH PMH Past Medical History: Anemia, Arthritis, CHF, Coronary Artery Disease, Dementia, Diabetes, Dyslipidemia, GERD, Hypertension, Hypothyroidism, Kidney Stones and Sleep Apnea Past Surgical History: Yes Surgical History: Angioplasty/Stents, Bowel Resection, Hysterectomy, Mastectomy and Other Family History Family Medical History: [place], Coronary Artery Disease and Hypertension Social History Do you use any recreational Drugs:: No ROS Review of Systems Constitutional: No Symptoms Reported Eyes: No Symptoms Reported ENTM: No Symptoms Reported Respiratoy: No Symptoms Reported Cardiovascular: No Symptoms Reported Gastrointestinal/Abdominal: No Symptoms Reported Genitourinary: No Symptoms Reported Neurological: Other (confusion) Musculoskeletal: No Symptoms Reported Integumentary: No Symptoms Reported Hematologic/Lymphatic: No Symptoms Reported Endocrine: No Symptoms Reported Psychiatric: No Symptoms Reported All Other Systems: Reviewed and Negative PE Vitals Vital Signs: Temp Pulse Resp BP BP Pulse Ox O2 Del Method 12/08/22 16:15 81 25 H 94 L 12/08/22 16:00 79 23 95 12/08/22 15:46 84 23 96 12/08/22 15:30 78 22 95 12/08/22 15:15 77 27 H 94 L 12/08/22 15:00 80 25 H 94 L 12/08/22 14:49 83 94 L 12/08/22 14:35 142/84 12/08/22 14:35 80 21 97 12/08/22 14:30 80 23 97 12/08/22 14:15 81 24 95 12/08/22 14:03 83 95 12/08/22 14:03 139/69 12/08/22 13:58 98.7 F 86 16 139/69 95 Nasal Cannula 09/19/22 13:58 128/75 06/02/22 14:58 FiO2 12/08/22 16:15 12/08/22 16:00 12/08/22 15:46 12/08/22 15:30 12/08/22 15:15 12/08/22 15:00 12/08/22 14:49 12/08/22 14:35 12/08/22 14:35 12/08/22 14:30 12/08/22 14:15 12/08/22 14:03 12/08/22 14:03 12/08/22 13:58 09/19/22 13:58 06/02/22 14:58 96 General Limitations: Language Barrier and Altered Mental Status General Appearance: In No Apparent Distress and Other (Await) Head Head Exam: Normal Inspection, Atraumatic and Normocephalic Eyes Eye exam: Normal Appearance and PERRL ENT ENT Exam: Normal Exam, Normal Oropharynx and Normal External Ear Exam Neck Neck Exam: Normal Inspection, Full ROM and Trachea Midline Chest Chest Inspection: Normal Inspection and Symmetric Chest Wall Rise Respiratory Respiratory Exam: Normal Lung Sounds Bilat Cardiovascular Cardiovascular Exam: Regular Rate, Normal Rhythm, Normal Heart Sounds, +S1 and +S2 Abdominal Exam Abdominal Exam: Normal Inspection, Normal Bowel Sounds and Soft Extremities Extremities Exam: Normal Inspection; negative Other Back Back Exam: Normal Inspection Skin Skin Exam: Dry, Intact and Normal Color COURSE Treatment Treatment: I had revisited the pt. She is a bit more alert. Her family were visiting in the room. Lab results were reviewed. My is to admit her for treament. I spoke about this with her PCP and the family. All in agreement. Admit orders were written. Reevaluation 1st: Improved Education/Counseling Education/Counseling: Patient, Family, Education and Counseling Educated On: Treatment, Diagnosis, Prognosis and Needs for Follow Up ROR Labs Reviewed Result Diagrams: 12/08/22 14:34 12/08/22 14:34 Laboratory: WBC 20.5 X10^3/uL (3.6-10.0) H 12/08/22 14:34 RBC 4.53 X10^6/uL (3.5-5.4) 12/08/22 14:34 Hgb 13.7 g/dL (12.0-16.0) 12/08/22 14:34 Hct 41.4 % (36.0-47.0) 12/08/22 14:34 MCV 91.4 fL (80.0-100.0) 12/08/22 14:34 MCH 30.2 pg (27.0-34.0) 12/08/22 14:34 MCHC 33.0 g/dL (33.0-35.0) 12/08/22 14:34 RDW 13.5 % (11.6-16.5) 12/08/22 14:34 Plt Count 247 X10^3/uL (150.0-450.0) 12/08/22 14:34 MPV 7.9 fL (7.4-11.0) 12/08/22 14:34 Neut % (Auto) 87.4 % (42.0-75.0) H 12/08/22 14:34 Lymph % (Auto) 7.1 % (21.0-51.0) L 12/08/22 14:34 [place] % (Auto) 5.5 % (0.0-13.0) 12/08/22 14:34 Eos % (Auto) 0.0 % (0.9-2.9) L 12/08/22 14:34 Baso % (Auto) 0 % (0.2-1.0) L 12/08/22 14:34 Neut # (Auto) 18.0 x10^3/uL (2.2-4.8) H 12/08/22 14:34 Lymph # (Auto) 1.5 X10^3/uL (1.3-2.9) 12/08/22 14:34 [place] # (Auto) 1.1 x10^3/uL (0.3-0.8) H 12/08/22 14:34 Eos # (Auto) 0.0 x10^3/uL (0.0-0.2) 12/08/22 14:34 Baso # (Auto) 0.0 X10^3/uL (0.0-0.1) 12/08/22 14:34 Absolute Nucleated RBC 0.0 /100WBC 12/08/22 14:34 PT 14.9 SECONDS (11.8-14.3) 12/08/22 15:03 INR Target Range - 12/08/22 15:03 INR 1.20 (0.8-1.3) 12/08/22 15:03 APTT 28.4 SECONDS (22.9-36.5) 12/08/22 15:03 PTT Comment - 12/08/22 15:03 D-Dimer 3.15 ug/ml (0.0-0.57) H 12/08/22 15:03 Sodium 140 mmol/L (136-145) 12/08/22 14:34 Corrected Sodium 142 mmol/L (136-145) 12/08/22 14:34 Potassium 3.8 mmol/L (3.5-5.1) 12/08/22 14:34 Chloride 99 mmol/L (98-107) 12/08/22 14:34 Carbon Dioxide 34.2 mmol/L (21-32) H 12/08/22 14:34 BUN 48 mg/dL (7-18) H 12/08/22 14:34 Creatinine 2.01 mg/dL (0.55-1.02) H 12/08/22 14:34 Est GFR (MDRD) Af Amer 30 (>60) L 12/08/22 14:34 Est GFR (MDRD) Non-Af 25 (>60) L 12/08/22 14:34 Glucose 197 mg/dL (65-99) H 12/08/22 14:34 Calcium 9.0 mg/dL (8.5-10.1) 12/08/22 14:34 Corrected Calcium 10.0 mg/dL (8.5-10.1) 12/08/22 14:34 Phosphorus 3.9 mg/dL (2.6-4.7) 12/08/22 14:34 Magnesium 2.1 mg/dL (2.0-2.9) 12/08/22 14:34 Total Bilirubin 1.10 mg/dL (0.2-1.0) H 12/08/22 14:34 AST 24 Units/L (15-37) 12/08/22 14:34 ALT 8 Units/L (12-78) L 12/08/22 14:34 Alkaline Phosphatase 70 Units/L (46-116) 12/08/22 14:34 Creatine Kinase 21 Units/L (26-192) L 12/08/22 14:34 Troponin I High Sens 14.7 ng/L (4.0-60.0) 12/08/22 14:34 B-Natriuretic Peptide 156 pg/mL (0-79) H 12/08/22 14:34 Total Protein 6.9 g/dL (6.4-8.2) 12/08/22 14:34 Albumin 2.8 g/dL (3.4-5.0) L 12/08/22 14:34 Globulin 4.1 g/dL (2.5-4.5) 12/08/22 14:34 Albumin/Globulin Ratio 0.7 Ratio (1.1-2.1) L 12/08/22 14:34 Amylase 38 Units/L (25-115) 12/08/22 14:34 Lipase 64 Units/L (73-393) L 12/08/22 14:34 Specimen Type Catherized urine 12/08/22 14:27 Urine Color Yellow (YELLOW) 12/08/22 14:27 Urine Appearance Slightly hazy (CLEAR) 12/08/22 14:27 Urine pH 5.0 (5.0 - 8.0) 12/08/22 14:27 Ur Specific [place] 1.015 (1.000-1.030) 12/08/22 14:27 Urine Protein 1+ (NEGATIVE) 12/08/22 14:27 Urine Glucose (UA) Negative (NEGATIVE) 12/08/22 14:27 Urine Ketones Negative (NEGATIVE) 12/08/22 14:27 Urine Blood 1+ (NEGATIVE) 12/08/22 14:27 Urine Nitrite Negative (NEGATIVE) 12/08/22 14:27 Urine Bilirubin Negative (NEGATIVE) 12/08/22 14:27 Urine Urobilinogen Normal (NORMAL) 12/08/22 14:27 Ur Leukocyte Esterase 2+ (NEGATIVE) 12/08/22 14:27 Urine RBC 3-5 /HPF (0-3) A 12/08/22 14:27 Urine WBC 5-10 /HPF (0-5) A 12/08/22 14:27 Ur Squamous Epith Cells Negative /HPF (NEGATIVE) 12/08/22 14:27 Urine Bacteria 3+ /HPF (NEGATIVE) 12/08/22 14:27 Hyaline Casts Rare /LPF (NEGATIVE) 12/08/22 14:27 Ur Culture Indicated? Yes/culture set up 12/08/22 14:27 SARS-CoV-2 (PCR) Negative (NEGATIVE) 12/08/22 14:52 Influenza Type A (PCR) Negative (NEGATIVE) 12/08/22 14:52 Influenza Type B (PCR) Negative (NEGATIVE) 12/08/22 14:52 RSV (PCR) Positive (NEGATIVE) A 12/08/22 14:52 EKG Rate: 84 [place]: Normal Rhythm: Junctional Block: None Hypertrophy: None ST: Old, Inf and Infarct Opioid Opioid Risk Tool Age (Gagan box if 16-45): No History of Preadolescent Sexual Abuse: No Total: 0 Total Score Risk Category: Low Risk Copyright: [facility] predicting aberrant behaviors Discharge Plan Diagnosis Discharge Problem: Acute alteration in mental status, D-dimer, elevated, RSV (respiratory syncytial virus infection) UTI (urinary tract infection) Qualifiers: Urinary tract infection type: acute cystitis Hematuria presence: without hematuria Qualified Code(s): N30.00 - Acute cystitis without hematuria Acute maxillary sinusitis Qualifiers: Recurrence: not specified as recurrent Qualified Code(s): J01.00 - Acute maxillary sinusitis, unspecified Acute ethmoidal sinusitis Qualifiers: Recurrence: not specified as recurrent Qualified Code(s): J01.20 - Acute ethmoidal sinusitis, unspecified Discharge Plan Patient Disposition: ADMITTED INPATIENT Condition: Stable Prescriptions: No Action famotidine 20 mg tablet 1 tab PO BID atorvastatin 10 mg tablet 1 tab PO HS pramipexole 0.5 mg tablet 1 tab PO TID citalopram 20 mg tablet 1 tab PO DAILY hydrochlorothiazide 12.5 mg capsule 1 cap PO DAILY furosemide 20 mg tablet 1 tab PO BID glimepiride [Amaryl] 4 mg Tablet 4 mg PO BID carbidopa-levodopa 25-250 mg Tablet 1 tab PO TID aspirin 81 mg Tablet,Delayed Release (Dr/Ec) 81 mg PO HS metoprolol succinate 25 mg Tablet Extended Release 24 Hr 25 mg PO BID tizanidine 4 mg tablet 1 tab PO QPM benzonatate 200 mg capsule 1 cap PO TID PRN tramadol 50 mg tablet 1 tab PO BID potassium chloride 20 mEq tablet,ER particles/crystals 1 tab PO QDAY gabapentin 300 mg capsule 1 cap PO TID amlodipine 10 mg Tablet 10 mg PO QDAY docusate sodium 100 mg Capsule 100 mg PO QDAY omeprazole 20 mg Capsule,Delayed Release(Dr/Ec) 20 mg PO BID hydroxyzine pamoate 25 mg Capsule 25 mg PO Q6HR PRN cholecalciferol (vitamin D3) [Vitamin D3] 25 mcg (1,000 unit) Tablet 25 mcg PO QDAY Health Concerns: Post Hospitalization: new medications and changes needed to prevent readmission or further decline. Pt educated and given instructions on all concerns. Plan of Treatment: Continue with present treatment and follow up plan. Pt is to keep follow up appointment as instructed and take medications as ordered. Orders to Discharge Patient Discharge Orders: Discharge (Routine); Ordered 12/08/22 Ordered By: PAZ SLAUGHTER Transfer (Routine); Ordered 12/08/22 Ordered By: PAZ SLAUGHTER Follow ups/Referrals Follow ups/Referrals: Ramiro Petit [Primary Care Provider] - 3 days
--- NOTE | 2022-12-08 14:16 | EKG ---
Test Reason : unresponsive Blood Pressure : */* mmHG Vent. Rate : 84 BPM Atrial Rate : 88 BPM P-R Int : * ms QRS Dur : 84 ms QT Int : 394 ms P-R-T Axes : * -22 195 degrees QTc Int : 465 ms NSR with pac's Inferior infarct , age undetermined Possible Anterior infarct , age undetermined Abnormal ECG No previous ECGs available Confirmed by Deandre Isbell ([id number]) on 12/08/2022 6:20:14 PM Referred By: Confirmed By: Deandre Isbell
[2022-12-08 14:31] VITALS: BMI 26.2
[2022-12-08 14:33] LABS: BILIRUBIN,URINE NEGATIVE (NEGATIVE); BLOOD/HEMOGLOBIN,URINE 1+ (NEGATIVE); GLUCOSE, URINE NEGATIVE (NEGATIVE); KETONES,URINE NEGATIVE (NEGATIVE); LEUKOCYTE ESTERASE ,URINE 2+ (NEGATIVE); NITRITES,URINE NEGATIVE (NEGATIVE); PROTEIN,URINE 1+ (NEGATIVE); UROBILINOGEN,URINE NORMAL (NORMAL)
[2022-12-08 14:42] LABS: APPEARANCE,URINE SLIGHTLY HAZY (CLEAR); COLOR,URINE YELLOW (YELLOW)
[2022-12-08 14:43] LABS: BACTERIA,URINE 3+ /HPF (NEGATIVE); HYALINE CASTS, URINE RARE /LPF (NEGATIVE); SQUAMOUS EPITHELIAL CELL,UR NEGATIVE /HPF (NEGATIVE)
[2022-12-08 14:48] LABS: BASOPHILS % (AUTO) 0 % (0.2-1.0); HEMATOCRIT 41.4 % (36.0-47.0); HEMOGLOBIN 13.7 g/dL (12.0-16.0); LYMPHOCYTES # (AUTO) 1.5 X10^3/uL (1.3-2.9); LYMPHOCYTES % (AUTO) 7.1 % (21.0-51.0); MEAN CORPUSCULAR HEMOGLOBIN 30.2 pg (27.0-34.0); MEAN CORPUSCULAR VOLUME 91.4 fL (80.0-100.0); MEAN PLATELET VOLUME 7.9 fL (7.4-11.0); MONOCYTES # (AUTO) 1.1 x10^3/uL (0.3-0.8); MONOCYTES % (AUTO) 5.5 % (0.0-13.0); NEUTROPHILS % (AUTO) 87.4 % (42.0-75.0); RED BLOOD COUNT 4.53 X10^6/uL (3.5-5.4); RED CELL DISTRIBUTION WIDTH 13.5 % (11.6-16.5); WHITE BLOOD COUNT 20.5 X10^3/uL (3.6-10.0)
[2022-12-08 14:56] LABS: ALBUMIN 2.8 g/dL (3.4-5.0); CARBON DIOXIDE 34.2 mmol/L (21-32); CREATININE 2.01 mg/dL (0.55-1.02); TOTAL PROTEIN 6.9 g/dL (6.4-8.2)
--- NOTE | 2022-12-08 15:00 | CT ---
HISTORYUNRESPONSIVE[Altered mental status]Noncontrast head CT examinationCOMPARISON: Head CT examination dated November 12, 2019.Technique:Multiple axial images of the brain were obtained from the skull base to the vertex without administration of IV contrast.Findings: There is moderate sulcal and cisternal prominence as well as atherosclerotic change in the proximal intracranial carotid and vertebral arteries, which is not out of proportion to the patient's stated age. There is diffuse CT density alteration seen in the periventricular white matter of the high and mid-convexity, which is likely in the setting of small vessel disease and not out of proportion to the patient's stated age. There is [mild bilateral ex vacuo] ventricular dilatation without evidence for hydrocephalus or herniation syndrome. No midline shift is evident. No acute intraparenchymal hemorrhage or mass can be identified. If there remains a strong concern for any intra-cranial neoplasm, then follow-up with CT or MR imaging of the brain would be more sensitive to exclude any intra-cranial mass lesion. No extra-axial fluid collections are seen. No alteration in the attenuation of the brain parenchyma can be identified to suggest acute or subacute ischemic change. However, if clinical symptoms are concerning for an acute CVA, then follow-up MRI with DWI sequencing is recommended. The extracranial structures demonstrates air-fluid levels within the maxillary sinuses, suggesting acute sinusitis, with polypoid mucoperiosteal thickening seen within the ethmoid sinuses as well.IMPRESSION:1. No acute intracranial changes or bleed identified.2. Stable intra-cranial changes of advancing age.3. Bilateral maxillary and ethmoid sinus disease, as above.Electronically signed by: TAMRA ADDISON III (Dec 08, 2022 14:58:53)
[2022-12-08 15:54] LABS: MAGNESIUM 2.1 mg/dL (2.0-2.9); PHOSPHORUS 3.9 mg/dL (2.6-4.7)
[2022-12-08] MEDS ORDERED: ZOSYN VIAL 2.25 GRAMS 2.25 G in NS 100 ML IV 100 ML IV SCH (16:07)
[2022-12-08] MEDS ORDERED: ZOSYN VIAL 2.25 GRAMS 2.25 G in NS 100 ML IV 100 ML IV STA (16:09)
--- NOTE | 2022-12-08 18:19 | RAD ---
CHEST, 1 VIEWHISTORY:UNRESPONSIVEStudy: Single view of the chest.Comparison:NoneFindings:Cardiomegaly and pulmonary vascular congestion. Right perihilar opacity is present. Osseous structures demonstrate no acute abnormality.IMPRESSION:1.Right perihilar opacity which may represent pneumonia.Electronically signed by: RANJIT NAIR (Dec 08, 2022 18:18:22)
[2022-12-08] MEDS: DUONEB 0.5 MG/3 MG (3 mL) NEB SCH (20:23)
[2022-12-08] MEDS: PULMICORT NEB TX 0.5 MG NEB SCH (20:23)
[2022-12-08] MEDS ORDERED: NS 500 ML IV 500 ML IV ONE (21:45)
[2022-12-08] MEDS: SNACK - Diabetic Appropriate PO SCH (21:49)
[2022-12-08] MEDS: AMARYL TAB 4 MG PO SCH (21:49)
[2022-12-08] MEDS: PriLOSEC PO SCH (21:50)
[2022-12-08] MEDS: LIPITOR TAB 10 MG PO SCH (21:50)
[2022-12-08] MEDS: ASPIRIN EC 81 MG PO SCH (21:50)
[2022-12-08] MEDS: ZANAFLEX PO SCH (21:51)
[2022-12-08] MEDS: MIRAPEX TAB 1 MG PO SCH (21:51)
[2022-12-08] MEDS: TOPROL XL PO SCH (21:51)
[2022-12-08] MEDS: SINEMET (PLAIN) 25/250 MG PO SCH (21:52)
[2022-12-08] MEDS ORDERED: NEURONTIN CAP 300 MG PO SCH (22:00)
[2022-12-08] MEDS: ZOSYN VIAL 4.5 GRAMS 4.5 G in NS 100 ML IV + SPIKE MINIBAG* 100 ML IV SCH (22:15)
[2022-12-09] MEDS ORDERED: NS 100 ML IV 100 ML ONE (00:17)
[2022-12-09] MEDS ORDERED: ZOSYN VIAL 2.25 GRAMS ONE (00:17)
[2022-12-09 05:09] LABS: BASOPHILS % (AUTO) 0.1 % (0.2-1.0); HEMATOCRIT 41.5 % (36.0-47.0); HEMOGLOBIN 13.8 g/dL (12.0-16.0); LYMPHOCYTES # (AUTO) 1.2 X10^3/uL (1.3-2.9); LYMPHOCYTES % (AUTO) 6.2 % (21.0-51.0); MEAN CORPUSCULAR HEMOGLOBIN 30.3 pg (27.0-34.0); MEAN CORPUSCULAR HGB CONC 33.4 g/dL (33.0-35.0); MEAN CORPUSCULAR VOLUME 90.8 fL (80.0-100.0); MEAN PLATELET VOLUME 7.9 fL (7.4-11.0); MONOCYTES # (AUTO) 0.9 x10^3/uL (0.3-0.8); MONOCYTES % (AUTO) 4.4 % (0.0-13.0); NEUTROPHILS # (AUTO) 17.5 x10^3/uL (2.2-4.8); NEUTROPHILS % (AUTO) 89.3 % (42.0-75.0); RED BLOOD COUNT 4.57 X10^6/uL (3.5-5.4); RED CELL DISTRIBUTION WIDTH 13.7 % (11.6-16.5); WHITE BLOOD COUNT 19.6 X10^3/uL (3.6-10.0)
[2022-12-09 05:25] LABS: ALBUMIN 2.5 g/dL (3.4-5.0); CARBON DIOXIDE 33.3 mmol/L (21-32); COR CA(FOR HYPOALB) 10.2 mg/dL (8.5-10.1); CREATININE 1.82 mg/dL (0.55-1.02); TOTAL PROTEIN 6.7 g/dL (6.4-8.2)
[2022-12-09] MEDS: ZOSYN VIAL 4.5 GRAMS 4.5 G in NS 100 ML IV + SPIKE MINIBAG* 100 ML IV SCH (05:52)
[2022-12-09] MEDS: MIRAPEX TAB 1 MG PO SCH ×3 (07:21→22:02)
[2022-12-09] MEDS: SINEMET (PLAIN) 25/250 MG PO SCH ×3 (07:21→22:03)
--- NOTE | 2022-12-09 08:30 | RAD ---
HISTORYSOB RSVSTUDYCHEST, 1 [id number]/01/2023.TECHNIQUEPA or AP view of the chestFINDINGSLeft chest wall pacemaker with leads in good position. Right chest wall port with tip in stable position at the superior SVC. Cardiac silhouette is mildly enlarged. Mediastinal contours appear normal for AP technique. Mild bilateral scattered interstitial opacities. Blunted right costophrenic sulcus. No pneumothorax.IMPRESSIONMild scattered interstitial opacities are nonspecific but can be seen with atypical pneumonia. Blunted right costophrenic sulcus can be seen with small pleural effusion or pleuro-parynchemal scarring.No significant change compared to prior radiograph.Electronically signed by: Jared Caruso (Dec 09, 2022 08:29:24)
[2022-12-09] MEDS: PriLOSEC PO SCH ×2 (08:58→22:03)
[2022-12-09] MEDS: NORVASC TAB 10 MG PO SCH (09:00)
[2022-12-09] MEDS: NEURONTIN CAP 300 MG PO SCH ×2 (09:00→22:02)
[2022-12-09] MEDS: VSL#3 PO SCH (09:00)
[2022-12-09] MEDS: COLACE CAP 100 MG PO SCH (09:01)
[2022-12-09] MEDS: PEPCID TAB 20 MG PO SCH (09:01)
[2022-12-09] MEDS: VITAMIN D3 25 mcg (1,000 UNITS) PO SCH (09:01)
[2022-12-09] MEDS: CELEXA PO SCH (09:02)
[2022-12-09] MEDS: AMARYL TAB 4 MG PO SCH ×2 (09:02→21:59)
[2022-12-09] MEDS: TOPROL XL PO SCH ×2 (09:02→22:03)
[2022-12-09] MEDS: PULMICORT NEB TX 0.5 MG NEB SCH ×2 (09:10→20:10)
[2022-12-09] MEDS: DUONEB 0.5 MG/3 MG (3 mL) NEB SCH ×4 (09:10→20:10)
[2022-12-09] MEDS: LOVENOX INJ 30 MG SYR SC SCH (11:13)
--- NOTE | 2022-12-09 13:16 | NM ---
HISTORY: Shortness of breath with suspicion for pulmonary embolism.Nuclear medicine pulmonary perfusion examination.Technique: After the administration of 5.7 mCi of technetium 99m MAA, anterior, posterior, and lateral perfusion images were submitted.The multiple V/Q projections were reviewed in concert.Comparison: Chest radiographic examination [of same day].Findings: o mismatched segmental or wedge-shaped perfusion defects are seen to suggest pulmonary emboli. Based on the PIOPED 2 criteria, this study would correspond to a [low] probability exam for PE. However, it should be noted that a low probability V/Q study does not imply a lack of any associated pulmonary emboli, based on the PIOPED study. It simply implies a less than 20% likelihood of pulmonary embolism. No additional ventilation or perfusion imaging abnormalities are seen.IMPRESSION:Low probability study for pulmonary embolism.Electronically signed by: TAMRA ADDISON III (Dec 09, 2022 13:15:04)
--- NOTE | 2022-12-09 13:33 | DR.H&P ---
H&P - History & Physical for Day of: H&P Date: 12/08/22 - Chief Complaint Chief Complaint: AMS, WEAKNESS - History of Present Illness History of Present Illness: IS A 87 YEAR OLD PATIENT OF OURS. SHE PRESENTED TO THE ER WITH COMPLAINTS OF ALTERED MENTAL STATUS AND GENERALIZED WEAKNESS. PATIENTS SPOUSE REPORTS THAT SYMPTOMS WERE PRESENT UPON PATIENTS AWAKENING. HE REPORTS THAT HE LAST SAW HER WELL AROUND MIDNIGHT. THEY DENY SHIVAMO ELIA OF FEVER. SHE DOES ADMIT TO A NON-PRODUCTIVE COUGH AND SHORTNESS OF BREATH AT TIMES. HER PMH INCLUDES: CAD, HTN, DYSLIPIDEMIA, DM II, HYPOTHYROIDISM, ANEMIA, GERD, ARTHRITIS, KIDNEY STONES, SLEEP APNEA, CHF, HYSTERECTOMY, MASTECTOMY, BOWEL RESECTION, AND CARDIAC STENTS. ON ARRIVAL TO THE HOSPITAL, PATIENT WAS NOTED TO BE DISORIENTED. SHE RESPONDED VERBALLY, BUT DID NOT FOLLOW VERBAL COMMANDS. HER VITALS ON ARRIVAL WERE 98.7-86-16-95%-139/69. LABS WERE OBTAINED. WBC 20.5, RBC 4.53, HGB 13.7, HCT 41.4, PLT COUNT 247, D- DIMER 3.15, PT 14.9, INR 1.20, SODIUM 140, POTASSIUM 3.8, CHLORIDE 99, CARBON DIOXIDE 34.2, BUN 48, CREATININE 2.01, GLUCOSE 197, CALCIUM 9.0, TOTAL BILI 1.10, AST 24, ALT 8, ALK PHOS 70, CREATINE KINASE 21, TROPONIN 14.7, BNP 156, TOTAL PROTEIN 6.9, ALBUMIN 2.8. BLOOD AND URINE CULTURES WERE SET UP. A URINALYSIS WAS OBTAINED AND REVEALED: WBC 5-10, RBC 3-5, LEUKOCYTES 2+, BACTERIA 3+. COVID AND INFLUENZA NEGATIVE. RSV WAS POSITIVE. AN AIT RESPIRATORY PANEL WAS SENT OUT. A CHEST XRAY WAS OBTAINED AND REVEALED: 1.Right perihilar opacity which may represent pneumonia. A BRAIN CT WAS OBTAINED AND REVEALED: 1. No acute intracranial changes or bleed identified. 2. Stable intra-cranial changes of advancing age. 3. Bilateral maxillary and ethmoid sinus disease. EKG REVEALED NORMAL SINUS RHYTHM WITH PACs. HR 84 BPM. IN THE ER, SHE WAS GIVEN ZOSYN 2.25G IV X 1 . SHE WAS ADMITTED TO THE HOSPITAL INPATIENT STATUS FOR TREATMENT OF PNEUMONIA, UTI, RSV, AMS, ELEVATED D-DIMER. SHE WAS STARTED ON ZOSYN 4.5G IV TID, PROBIOTICS DAILY, DUONEBS QID, PULMICORT NEBS BID, LOVENOX 30MG SC DAILY, OTBS ACHS, HUMULIN R SLIDING SCALE, THE POTASSIUM AND MAGNESIUM PROTOCOLS. HER HOME MEDICATIONS OF ZANAFLEX, MIRAPEX, PRILOSEC, TOPROL, AMARYL, NEURONTIN, COLACE, CELEXA, VITAMIN D3, SINEMET, LIPITOR, ECOTRIN, AMLODIPINE WERE RESUMED. OTHERWISE, WE WILL FOLLOW-UP WITH AM LABS AND CHEST XRAY AND CONTINUE TO MONITOR. TIME SPENT ON CLINICAL ASSESSMENT, REVIWING LABS AND IMAGING, DECISION MAKING, AND DOCUMENTATION GREATER THAN 75 MINUTES. - Past Medical History Past Medical History: Coronary Artery Disease, Hypertension, Dyslipidemia, Di abetes, Dementia, Hypothyroidism, Anemia, GERD, Arthritis, Kidney Stones, Sleep Apnea, CHF Additional Medical History: Vision Deficit, Parkinson's Disease, Atrial Fibrillation, Bronchitis, Pneumonia, Constipation, Diarrhea, Colon Cancer, Breast Cancer, Urinary Tract Infections, Muscle Weakness, Back Pain, Neuropathy, Previous Blood Transfusion - Past Surgical History Surgical History: Angioplasty/Stents, Bowel Resection, Hysterectomy, Mastectomy, Other Additional Surgical History: Pacemaker, Two Colon Resection's for Colon Cancer, Left Partial Mastectomy for Breast Cancer, Right Chest Wall Port a cath, Left PAU - Family History Family Medical History: [place], Coronary Artery Disease, Hypertension - Social History Does patient currently use any type of tobacco product: No Have you used tobacco products in the last 12 months: No Type of Tobacco Use: None Does any household member use tobacco: No Alcohol Use: None Drug Use: None - Medications Home Medications: adhesive tape Allergy (Unknown, Verified 05/03/19 15:13) latex Allergy (Unknown, Verified 08/07/22 10:06) sulfamethoxazole [From Bactrim] Adverse Reaction (Unknown, Verified 08/07/22 10:06) trimethoprim [From Bactrim] Adverse Reaction (Unknown, Verified 08/07/22 10:06) ADHESIVE TAPE Allergy (Unknown, Uncoded 08/07/22 10:06) CONTINUE taking the following medications amlodipine 10 mg tablet 10 mg PO QDAY 12/08/22 [History] benzonatate 200 mg capsule 1 cap PO TID PRN 12/08/22 [History] cholecalciferol (vitamin D3) 25 mcg (1,000 unit) tablet (Vitamin D3) 25 mcg PO QDAY 12/08/22 [History] docusate sodium 100 mg capsule 100 mg PO QDAY 12/08/22 [History] gabapentin 300 mg capsule 1 cap PO TID 12/08/22 [History] hydroxyzine pamoate 25 mg capsule 25 mg PO Q6HR PRN 12/08/22 [History] omeprazole 20 mg capsule,delayed release 20 mg PO BID 12/08/22 [History] potassium chloride 20 mEq tablet,extended release(part/cryst) 1 tab PO QDAY 12/08/22 [History] tizanidine 4 mg tablet 1 tab PO QPM 12/08/22 [History] tramadol 50 mg tablet 1 tab PO BID 12/08/22 [History] - Review of Systems Constitutional: Weakness Eyes: No Symptoms Reported ENT: No Symptoms Reported Respiratory: No Symptoms Reported Cardiovascular: No Symptoms Reported Gastrointestinal: No Symptoms Reported Genitourinary: No Symptoms Reported Musculoskeletal: No Symptoms Reported Skin: No Symptoms Reported Neurological: Weakness, Confusion - Physical Exam Vital Signs: Temperature 98.5 F Pulse Rate 82 Respiratory Rate 25 Blood Pressure [Left Arm] 128/75 Blood Pressure 144/85 O2 Sat by Pulse Oximetry 96 Oriented: Person Eyes: Normal Ear: Normal Nose: Normal Throat: Normal Respiratory: Diminished Throughout Cardiovascular: Normal : Normal Auscultation: Bowel Sounds: Normal Palpation: Normal Tenderness: Normal Skin: Normal Musculoskeletal: Normal Psychiatric: Normal Mood Description: Flat Affect: Flat Speech Pattern: Clear - Assessment/Plan (1) Pneumonia Qualifiers: Pneumonia type: due to unspecified organism Laterality: right Lung location: unspecified part of lung Qualified Code(s): J18.9 - Pneumonia, unspecified organism Status: Acute Plan: ADMIT, SUPPLEMENTAL OXGYEN, ZOSYN 4.5G IV TID, PROBIOTICS DAILY, DUONEBS QID, PULMICORT NEBS BID, LOVENOX 30MG SC DAILY, OTBS ACHS, HUMULIN R SLIDING SCALE, THE POTASSIUM AND MAGNESIUM PROTOCOLS. HER HOME MEDICATIONS OF ZANAFLEX, MIRAPEX, PRILOSEC, TOPROL, AMARYL, NEURONTIN, COLACE, CELEXA, VITAMIN D3, SINEMET, LIPITOR, ECOTRIN, AMLODIPINE WERE RESUMED. (2) RSV (acute bronchiolitis due to respiratory syncytial virus) Status: Acute (3) UTI (urinary tract infection) Qualifiers: Urinary tract infection type: acute cystitis Hematuria presence: without hematuria Qualified Code(s): N30.00 - Acute cystitis without hematuria Status: Acute (4) AMS (altered mental status) Qualifiers: Altered mental status type: transient alteration of awareness Qualified Code(s): R40.4 - Transient alteration of awareness Status: Acute (5) Generalized weakness Status: Acute (6) D-dimer, elevated Status: Acute (7) Chronic kidney disease (CKD) Qualifiers: Chronic kidney disease stage: stage 3 (moderate) Chronic kidney disease stage 3 subtype: stage 3b (GFR 30-44) Qualified Code(s): N18.32 - Chronic kidney disease, stage 3b Status: Chronic (8) Diabetes mellitus, type II Qualifiers: Diabetes mellitus care home insulin use: without care home use Diabetes mellitus complication status: with kidney complications Diabetes mellitus complication detail: with chronic kidney disease Chronic kidney disease stage: stage 3 (moderate) Chronic kidney disease stage 3 subtype: stage 3b (GFR 30- 44) Qualified Code(s): E11.22 - Type 2 diabetes mellitus with diabetic chronic kidney disease; N18.32 - Chronic kidney disease, stage 3b Status: Chronic (9) GERD (gastroesophageal reflux disease) Qualifiers: Esophagitis presence: esophagitis presence not specified Qualified Code(s): K21.9 - Gastro-esophageal reflux disease without esophagitis Status: Chronic (10) HTN (hypertension) Qualifiers: Hypertension type: primary hypertension Qualified Code(s): I10 - Essential (primary) hypertension Status: Chronic (11) Hyperlipidemia Qualifiers: Hyperlipidemia type: mixed hyperlipidemia Qualified Code(s): E78.2 - Mixed hyperlipidemia Status: Chronic - Allergies Allergies/Adverse Reactions: Allergies Allergy/AdvReac Type Severity Reaction Status Date / Time adhesive tape Allergy Unknown Verified 05/03/19 15:13 latex Allergy Unknown Verified 08/07/22 10:06 sulfamethoxazole AdvReac Unknown Verified 08/07/22 10:06 [From Bactrim] trimethoprim [From Bactrim] AdvReac Unknown Verified 08/07/22 10:06 ADHESIVE TAPE Allergy Unknown Uncoded 08/07/22 10:06
[2022-12-09] MEDS: ZOSYN VIAL 3.375 GRAMS 3.375 G in NS 100 ML IV 100 ML IV SCH ×2 (14:34→21:56)
[2022-12-09] MEDS: NovoLIN R (or HumuLIN R) SUBCUT PRN ×2 (16:29→22:04)
[2022-12-09] MEDS: SNACK - Diabetic Appropriate PO SCH ×2 (20:30)
[2022-12-09] MEDS: ZANAFLEX PO SCH (22:02)
[2022-12-09] MEDS: LIPITOR TAB 10 MG PO SCH (22:03)
[2022-12-09] MEDS: ASPIRIN EC 81 MG PO SCH (22:04)
[2022-12-10 05:17] LABS: BASOPHILS # (AUTO) 0.1 X10^3/uL (0.0-0.1); BASOPHILS % (AUTO) 0.4 % (0.2-1.0); EOSINOPHILS % (AUTO) 0.1 % (0.9-2.9); HEMATOCRIT 35.9 % (36.0-47.0); HEMOGLOBIN 12.2 g/dL (12.0-16.0); LYMPHOCYTES # (AUTO) 1.4 X10^3/uL (1.3-2.9); LYMPHOCYTES % (AUTO) 10.1 % (21.0-51.0); MEAN CORPUSCULAR HEMOGLOBIN 30.5 pg (27.0-34.0); MEAN CORPUSCULAR VOLUME 89.7 fL (80.0-100.0); MEAN PLATELET VOLUME 7.9 fL (7.4-11.0); MONOCYTES # (AUTO) 0.8 x10^3/uL (0.3-0.8); MONOCYTES % (AUTO) 5.6 % (0.0-13.0); NEUTROPHILS % (AUTO) 83.8 % (42.0-75.0); RED CELL DISTRIBUTION WIDTH 13.6 % (11.6-16.5); WHITE BLOOD COUNT 14.3 X10^3/uL (3.6-10.0)
[2022-12-10 05:23] LABS: ALANINE AMINOTRANSFERASE < 6 Units/L (12-78); ALKALINE PHOSPHATASE 57 Units/L (46-116); ASPARTATE AMINO TRANSFERASE 12 Units/L (15-37); BLOOD UREA NITROGEN 36 mg/dL (7-18); CALCIUM 8.4 mg/dL (8.5-10.1); CARBON DIOXIDE 32.5 mmol/L (21-32); CHLORIDE 105 mmol/L (98-107); COR NA(FOR HYPERGLY) 147 mmol/L (136-145); CREATININE 1.38 mg/dL (0.55-1.02); SODIUM 144 mmol/L (136-145); TOTAL PROTEIN 5.8 g/dL (6.4-8.2); eGFR NON BLACK RACES 38 (>60)
[2022-12-10] MEDS: SINEMET (PLAIN) 25/250 MG PO SCH ×3 (06:15→21:29)
[2022-12-10] MEDS: MIRAPEX TAB 1 MG PO SCH ×3 (06:15→21:29)
[2022-12-10] MEDS: ZOSYN VIAL 3.375 GRAMS 3.375 G in NS 100 ML IV 100 ML IV SCH ×3 (06:16→21:29)
[2022-12-10] MEDS: NovoLIN R (or HumuLIN R) SUBCUT PRN ×4 (06:18→21:30)
[2022-12-10] MEDS ORDERED: MICRO K EXTEN CAP 10 MEQ PO PRN (07:35)
[2022-12-10] MEDS ORDERED: KLOR-CON PO PRN (07:35)
[2022-12-10] MEDS ORDERED: MAGNESIUM SULFATE 1 GRAM/100 mL PREMIX 1 G/100 ML BAG IV PRN (07:35)
[2022-12-10] MEDS ORDERED: POTASSIUM CHLORIDE LIQ 20 MEQ UDC PO PRN (07:35)
[2022-12-10] MEDS ORDERED: POTASSIUM CHL 40 MEQ/NS 0.45% 500 ML IV PRN (07:35)
[2022-12-10] MEDS ORDERED: K-RIDER 10 MEQ/NS 100 ML 10 MEQ/100 ML BAG IV PRN (07:35)
[2022-12-10] MEDS ORDERED: POTASSIUM CHL 60 MEQ/NS 0.45% 500 ML IV PRN (07:35)
[2022-12-10] MEDS: NEURONTIN CAP 300 MG PO SCH ×2 (08:12→21:27)
[2022-12-10] MEDS: VSL#3 PO SCH (08:12)
[2022-12-10] MEDS: PEPCID TAB 20 MG PO SCH (08:12)
[2022-12-10] MEDS: VITAMIN D3 25 mcg (1,000 UNITS) PO SCH (08:12)
[2022-12-10] MEDS: LOVENOX INJ 30 MG SYR SC SCH (08:13)
[2022-12-10] MEDS: TOPROL XL PO SCH ×2 (08:13→21:28)
[2022-12-10] MEDS: AMARYL TAB 4 MG PO SCH ×2 (08:13→21:27)
[2022-12-10] MEDS: K-DUR TAB 20 MEQ PO PRN ×2 (08:13→16:25)
[2022-12-10] MEDS: COLACE CAP 100 MG PO SCH (08:13)
[2022-12-10] MEDS: PriLOSEC PO SCH ×2 (08:13→21:28)
[2022-12-10] MEDS: NORVASC TAB 10 MG PO SCH (08:13)
[2022-12-10] MEDS: CELEXA PO SCH (08:13)
[2022-12-10] MEDS: DUONEB 0.5 MG/3 MG (3 mL) NEB SCH ×4 (08:48→20:25)
[2022-12-10] MEDS: PULMICORT NEB TX 0.5 MG NEB SCH ×2 (08:48→20:25)
--- NOTE | 2022-12-10 11:40 | RAD ---
Chest AP portableIndication: DyspneaComparison December 09, [id number] tip is over the SVC. Pacemaker leads noted. Monitor leads obscure minimal detail. Heart size is upper limits of normal without pneumothorax or large effusion seen. Mild increased interstitial markings noted.IMPRESSIONNo new acute chest process or significant change from the prior. Persistent patchy pulmonary opacities, notably in the right mid and lower lung. Follow-up to resolution to exclude underlying lesion.Electronically signed by: LETITIA WESTON (Dec 10, 2022 11:38:22)
[2022-12-10] MEDS ORDERED: PULMICORT NEB TX 0.5 MG NEB ONE (19:05)
[2022-12-10] MEDS: SNACK - Diabetic Appropriate PO SCH ×2 (20:30→20:35)
[2022-12-10] MEDS: ASPIRIN EC 81 MG PO SCH (21:27)
[2022-12-10] MEDS: LIPITOR TAB 10 MG PO SCH (21:28)
[2022-12-10] MEDS: ZANAFLEX PO SCH (21:28)
[2022-12-11] MEDS ORDERED: NS 250 ML IV 250 ML IV ONE (03:02)
[2022-12-11] MEDS: ROBITUSSIN DM PO PRN ×2 (03:10→08:45)
[2022-12-11 05:17] LABS: BASOPHILS % (AUTO) 0.3 % (0.2-1.0); EOSINOPHILS # (AUTO) 0.1 x10^3/uL (0.0-0.2); EOSINOPHILS % (AUTO) 0.7 % (0.9-2.9); HEMOGLOBIN 12.7 g/dL (12.0-16.0); LYMPHOCYTES # (AUTO) 1.4 X10^3/uL (1.3-2.9); LYMPHOCYTES % (AUTO) 13.1 % (21.0-51.0); MEAN CORPUSCULAR HEMOGLOBIN 30.3 pg (27.0-34.0); MEAN CORPUSCULAR HGB CONC 33.5 g/dL (33.0-35.0); MEAN CORPUSCULAR VOLUME 90.5 fL (80.0-100.0); MONOCYTES # (AUTO) 0.6 x10^3/uL (0.3-0.8); MONOCYTES % (AUTO) 5.1 % (0.0-13.0); NEUTROPHILS # (AUTO) 8.7 x10^3/uL (2.2-4.8); NEUTROPHILS % (AUTO) 80.8 % (42.0-75.0); RED BLOOD COUNT 4.19 X10^6/uL (3.5-5.4); RED CELL DISTRIBUTION WIDTH 13.8 % (11.6-16.5); WHITE BLOOD COUNT 10.8 X10^3/uL (3.6-10.0)
[2022-12-11] MEDS: MIRAPEX TAB 1 MG PO SCH ×3 (05:24→21:50)
[2022-12-11] MEDS: ZOSYN VIAL 3.375 GRAMS 3.375 G in NS 100 ML IV 100 ML IV SCH ×3 (05:25→21:50)
[2022-12-11] MEDS: SINEMET (PLAIN) 25/250 MG PO SCH ×3 (05:25→21:50)
[2022-12-11 05:37] LABS: ALBUMIN 2.1 g/dL (3.4-5.0); ALKALINE PHOSPHATASE 60 Units/L (46-116); ASPARTATE AMINO TRANSFERASE 15 Units/L (15-37); BLOOD UREA NITROGEN 31 mg/dL (7-18); CALCIUM 8.6 mg/dL (8.5-10.1); CARBON DIOXIDE 30.4 mmol/L (21-32); CHLORIDE 109 mmol/L (98-107); COR CA(FOR HYPOALB) 10.1 mg/dL (8.5-10.1); COR NA(FOR HYPERGLY) 148 mmol/L (136-145); CREATININE 1.47 mg/dL (0.55-1.02); SODIUM 147 mmol/L (136-145); TOTAL PROTEIN 6.1 g/dL (6.4-8.2); eGFR NON BLACK RACES 36 (>60)
[2022-12-11 05:57] LABS: ALANINE AMINOTRANSFERASE < 6 Units/L (12-78)
[2022-12-11] MEDS: LOVENOX INJ 30 MG SYR SC SCH (08:45)
[2022-12-11] MEDS: PEPCID TAB 20 MG PO SCH (08:46)
[2022-12-11] MEDS: VITAMIN D3 25 mcg (1,000 UNITS) PO SCH (08:46)
[2022-12-11] MEDS: CELEXA PO SCH (08:47)
[2022-12-11] MEDS: AMARYL TAB 4 MG PO SCH ×2 (08:47→20:28)
[2022-12-11] MEDS: VSL#3 PO SCH (08:47)
[2022-12-11] MEDS: PriLOSEC PO SCH ×2 (08:47→20:29)
[2022-12-11] MEDS: NEURONTIN CAP 300 MG PO SCH ×2 (08:47→20:29)
[2022-12-11] MEDS: COLACE CAP 100 MG PO SCH (08:48)
[2022-12-11] MEDS: TOPROL XL PO SCH ×2 (08:49→20:30)
[2022-12-11] MEDS: NORVASC TAB 10 MG PO SCH (08:49)
[2022-12-11] MEDS: DUONEB 0.5 MG/3 MG (3 mL) NEB SCH ×4 (09:12→20:05)
[2022-12-11] MEDS: PULMICORT NEB TX 0.5 MG NEB SCH ×2 (09:12→20:05)
--- NOTE | 2022-12-11 09:13 | RAD ---
HISTORYSOBSTUDYAP chestCOMPARISONFebruary 2022FINDINGSThere is apparent improvement in the right lower lobe infiltrative component. There is a persistent airspace involvement in the right midlung. Heart size is normal and there is stable position of pacing leads and subclavian port.IMPRESSIONPersistent right-sided infiltrates with slight improvement in the right lower lung.Electronically signed by: RAMIRO FARAH (Dec 11, 2022 09:11:52)
[2022-12-11] MEDS: NovoLIN R (or HumuLIN R) SUBCUT PRN ×2 (11:34→20:30)
[2022-12-11] MEDS: SNACK - Diabetic Appropriate PO SCH (20:27)
[2022-12-11] MEDS: ASPIRIN EC 81 MG PO SCH (20:28)
[2022-12-11] MEDS: ZANAFLEX PO SCH (20:29)
[2022-12-11] MEDS: LIPITOR TAB 10 MG PO SCH (20:29)
[2022-12-12] MEDS: ROBITUSSIN DM PO PRN ×3 (00:36→10:55)
[2022-12-12] MEDS: MIRAPEX TAB 1 MG PO SCH ×3 (05:09→21:04)
[2022-12-12 05:13] LABS: BASOPHILS # (AUTO) 0.1 X10^3/uL (0.0-0.1); BASOPHILS % (AUTO) 0.7 % (0.2-1.0); EOSINOPHILS # (AUTO) 0.1 x10^3/uL (0.0-0.2); EOSINOPHILS % (AUTO) 0.9 % (0.9-2.9); HEMATOCRIT 36.2 % (36.0-47.0); HEMOGLOBIN 12.2 g/dL (12.0-16.0); LYMPHOCYTES # (AUTO) 2.1 X10^3/uL (1.3-2.9); LYMPHOCYTES % (AUTO) 16.5 % (21.0-51.0); MEAN CORPUSCULAR HEMOGLOBIN 30.6 pg (27.0-34.0); MEAN CORPUSCULAR HGB CONC 33.6 g/dL (33.0-35.0); MEAN CORPUSCULAR VOLUME 91.2 fL (80.0-100.0); MEAN PLATELET VOLUME 8.7 fL (7.4-11.0); MONOCYTES # (AUTO) 0.8 x10^3/uL (0.3-0.8); NEUTROPHILS # (AUTO) 9.8 x10^3/uL (2.2-4.8); NEUTROPHILS % (AUTO) 75.9 % (42.0-75.0); RED BLOOD COUNT 3.97 X10^6/uL (3.5-5.4); RED CELL DISTRIBUTION WIDTH 13.8 % (11.6-16.5)
[2022-12-12 05:18] LABS: ALKALINE PHOSPHATASE 53 Units/L (46-116); ASPARTATE AMINO TRANSFERASE 22 Units/L (15-37); BLOOD UREA NITROGEN 24 mg/dL (7-18); CALCIUM 8.2 mg/dL (8.5-10.1); CARBON DIOXIDE 29.5 mmol/L (21-32); CHLORIDE 105 mmol/L (98-107); COR CA(FOR HYPOALB) 9.8 mg/dL (8.5-10.1); COR NA(FOR HYPERGLY) 142 mmol/L (136-145); CREATININE 1.29 mg/dL (0.55-1.02); SODIUM 141 mmol/L (136-145); TOTAL PROTEIN 6.1 g/dL (6.4-8.2); eGFR NON BLACK RACES 41 (>60)
[2022-12-12] MEDS: SINEMET (PLAIN) 25/250 MG PO SCH ×3 (05:18→21:03)
[2022-12-12] MEDS: ZOSYN VIAL 3.375 GRAMS 3.375 G in NS 100 ML IV 100 ML IV SCH ×3 (05:25→21:06)
[2022-12-12 05:43] LABS: ALANINE AMINOTRANSFERASE < 6 Units/L (12-78)
[2022-12-12 06:08] LABS: PLATELET MORPHOLOGY COMMENT NORMAL (NORMAL)
--- NOTE | 2022-12-12 07:12 | RAD ---
HISTORYSOBSTUDYAP chestCOMPARISONFebruary 2022FINDINGSThere is persistent airspace involvement in the right midlung, the abnormality significantly obscured by overlying artifact. Increasing infiltrate is noted in the left lower lung. Heart size is similar.IMPRESSIONBilateral pulmonary infiltrates consistent with pneumonia, stable on the right and increasing in the left lung.Electronically signed by: RAMIRO FARAH (Dec 12, 2022 07:11:02)
[2022-12-12] MEDS: COLACE CAP 100 MG PO SCH (08:07)
[2022-12-12] MEDS: PriLOSEC PO SCH ×2 (08:07→21:02)
[2022-12-12] MEDS: NEURONTIN CAP 300 MG PO SCH ×2 (08:08→21:03)
[2022-12-12] MEDS: VSL#3 PO SCH (08:08)
[2022-12-12] MEDS: CELEXA PO SCH (08:08)
[2022-12-12] MEDS: AMARYL TAB 4 MG PO SCH ×2 (08:08→21:02)
[2022-12-12] MEDS: NORVASC TAB 10 MG PO SCH (08:08)
[2022-12-12] MEDS: TOPROL XL PO SCH ×2 (08:08→21:03)
[2022-12-12] MEDS: VITAMIN D3 25 mcg (1,000 UNITS) PO SCH (08:09)
[2022-12-12] MEDS: LOVENOX INJ 30 MG SYR SC SCH (08:09)
[2022-12-12] MEDS: PEPCID TAB 20 MG PO SCH (08:09)
[2022-12-12] MEDS: DUONEB 0.5 MG/3 MG (3 mL) NEB SCH ×4 (08:40→21:15)
[2022-12-12] MEDS: PULMICORT NEB TX 0.5 MG NEB SCH ×2 (08:40→21:15)
[2022-12-12] MEDS: DULCOLAX SUPPOSITORY 10 MG RECTAL ONE ×2 (12:30→13:25)
[2022-12-12] MEDS: TESSALON PERLES PO PRN ×2 (13:19→21:03)
[2022-12-12] MEDS: SNACK - Diabetic Appropriate PO SCH (19:30)
[2022-12-12] MEDS: ZANAFLEX PO SCH (21:03)
[2022-12-12] MEDS: RESTORIL CAP 15 MG PO PRN (21:03)
[2022-12-12] MEDS: LIPITOR TAB 10 MG PO SCH (21:03)
[2022-12-12] MEDS: ASPIRIN EC 81 MG PO SCH (21:03)
[2022-12-12] MEDS: NovoLIN R (or HumuLIN R) SUBCUT PRN (21:22)
[2022-12-13] MEDS: MIRAPEX TAB 1 MG PO SCH ×3 (05:05→21:14)
[2022-12-13] MEDS: TESSALON PERLES PO PRN ×2 (05:05→20:18)
[2022-12-13] MEDS: ZOSYN VIAL 3.375 GRAMS 3.375 G in NS 100 ML IV 100 ML IV SCH ×3 (05:05→21:00)
[2022-12-13] MEDS: SINEMET (PLAIN) 25/250 MG PO SCH ×3 (05:05→21:16)
[2022-12-13 05:13] LABS: BASOPHILS % (AUTO) 0.2 % (0.2-1.0); EOSINOPHILS # (AUTO) 0.1 x10^3/uL (0.0-0.2); EOSINOPHILS % (AUTO) 1.1 % (0.9-2.9); HEMATOCRIT 36.2 % (36.0-47.0); HEMOGLOBIN 12.1 g/dL (12.0-16.0); LYMPHOCYTES # (AUTO) 1.5 X10^3/uL (1.3-2.9); MEAN CORPUSCULAR HEMOGLOBIN 30.4 pg (27.0-34.0); MEAN CORPUSCULAR HGB CONC 33.5 g/dL (33.0-35.0); MEAN CORPUSCULAR VOLUME 90.9 fL (80.0-100.0); MEAN PLATELET VOLUME 8.3 fL (7.4-11.0); MONOCYTES # (AUTO) 0.6 x10^3/uL (0.3-0.8); MONOCYTES % (AUTO) 5.6 % (0.0-13.0); NEUTROPHILS # (AUTO) 8.4 x10^3/uL (2.2-4.8); NEUTROPHILS % (AUTO) 79.1 % (42.0-75.0); RED BLOOD COUNT 3.98 X10^6/uL (3.5-5.4); RED CELL DISTRIBUTION WIDTH 13.8 % (11.6-16.5); WHITE BLOOD COUNT 10.6 X10^3/uL (3.6-10.0)
[2022-12-13 05:24] LABS: ALANINE AMINOTRANSFERASE < 6 Units/L (12-78); ALKALINE PHOSPHATASE 57 Units/L (46-116); ASPARTATE AMINO TRANSFERASE 18 Units/L (15-37); BLOOD UREA NITROGEN 18 mg/dL (7-18); CALCIUM 8.3 mg/dL (8.5-10.1); CARBON DIOXIDE 28.7 mmol/L (21-32); CHLORIDE 107 mmol/L (98-107); COR CA(FOR HYPOALB) 9.9 mg/dL (8.5-10.1); COR NA(FOR HYPERGLY) 143 mmol/L (136-145); CREATININE 1.23 mg/dL (0.55-1.02); SODIUM 142 mmol/L (136-145); TOTAL PROTEIN 5.9 g/dL (6.4-8.2); eGFR NON BLACK RACES 44 (>60)
--- NOTE | 2022-12-13 07:36 | RAD ---
HISTORYSOB CHF, CAD, DM, HTN, SLEEP APNEA SX: PARKINSONS, ANGIO/STENTS, BOWEL/RESECTION, HYST, MAST, ORTHO SURGSTUDYCHEST, 1 [id number] is a right-sided Port-A-Cath in place. There is a left-sided pacemaker with 2 leads. There is a focal alveolar radiopacity in the periphery of the right lung and less likely the scapula shallow. There is unchanged peripheral infiltrate in the left lung. No pleural effusion or pneumothorax.There is mild cardiomegaly. Osseus structures are unremarkable.IMPRESSIONFocal alveolar radiopacities involving the periphery of the lungs with interval worsening in the right. Follow-up recommendedElectronically signed by: Lucero Arreoal (Dec 13, 2022 07:34:48)
[2022-12-13] MEDS: DUONEB 0.5 MG/3 MG (3 mL) NEB SCH ×4 (08:35→21:00)
[2022-12-13] MEDS: PULMICORT NEB TX 0.5 MG NEB SCH ×2 (08:35→21:30)
[2022-12-13] MEDS: PriLOSEC PO SCH ×2 (08:55→20:14)
[2022-12-13] MEDS: LOVENOX INJ 30 MG SYR SC SCH (08:55)
[2022-12-13] MEDS: VSL#3 PO SCH (08:55)
[2022-12-13] MEDS: NORVASC TAB 10 MG PO SCH (08:56)
[2022-12-13] MEDS: NEURONTIN CAP 300 MG PO SCH ×2 (08:56→20:14)
[2022-12-13] MEDS: CELEXA PO SCH (08:56)
[2022-12-13] MEDS: TOPROL XL PO SCH ×2 (08:56→20:18)
[2022-12-13] MEDS: COLACE CAP 100 MG PO SCH (08:56)
[2022-12-13] MEDS: PEPCID TAB 20 MG PO SCH (08:57)
[2022-12-13] MEDS: VITAMIN D3 25 mcg (1,000 UNITS) PO SCH (08:57)
[2022-12-13] MEDS: AMARYL TAB 4 MG PO SCH ×2 (08:57→20:17)
[2022-12-13] MEDS ORDERED: DIFLUCAN 200 MG IV PREMIX* 200 MG/100 ML BAG IV SCH (11:00)
--- NOTE | 2022-12-13 12:29 | PCM.PROG ---
Progress Note - Progress Note for Day of Date of Exam: 12/10/22 - Subjective Subjective: IS CURRENTLY INPATIENT STATUS FOR TREATMENT OF PNEUMONIA, UTI, RSV, AMS, GENERALIZED WEAKNESS, AND ELEVATED D-DIMER. SHE CONTINUES TO COMPLAIN OF A NON-PRODUCTIVE COUGH AND SHORTNESS OF BREATH. HER PMH INCLUDES: CAD, HTN, DYSLIPIDEMIA, DM II, HYPOTHYROIDISM, ANEMIA, GERD, ARTHRITIS, KIDNEY STONES, SLEEP APNEA, CHF, HYSTERECTOMY, MASTECTOMY, BOWEL RESECTION, AND CARDIAC STENTS. ON EXAMINATION TODAY, HEART IS REGULAR IN RATE AND RHYTHM. BILATERAL LUNGS ARE NOTED WITH DIMINISHED LUNG SOUNDS THROUGHOUT. ABDOMEN IS ROUND, SOFT, AND NON-TENDER WITH NORMAL BOWEL SOUNDS NOTED IN ALL QUADRANTS. NO UPPER OR LOWER EXTREMITY EDEMA NOTED. HER VITALS THIS MORNING WERE 98.3-75-20-94%-157/70. LABS WERE OBTAINED. WBC 14.3, RBC 4.00, HGB 12.2, HCT 35.9, PLT COUNT 216, SODIUM 144, POTASSIUM 3.0, CARBON DIOXIDE 32.5, BUN 36, CREATININE 1.38, GLUCOSE 228, CALCIUM 8.4, TOTAL BILI 0.80, AST 12, ALT <6, ALK PHOS 57, TOTAL PROTEIN 5.8, ALBUMIN 2.0. BLOOD AND URINE CULTURES WERE SET UP. URINE CULTURE POSITIVE FOR GROWTH OF E.COLI. A CHEST XRAY WAS OBTAINED AND REVEALED: 1. No new acute chest process or significant change from the prior. Persistent patchy pulmonary opacities, notably in the right mid and lower lung. SHE IS CURRENTLY RECEIVING ZOSYN 4.5G IV TID, PROBIOTICS DAILY, DUONEBS QID, PULMICORT NEBS BID, LOVENOX 30MG SC DAILY, OTBS ACHS, HUMULIN R SLIDING SCALE, THE POTASSIUM AND MAGNESIUM PROTOCOLS. HER HOME MEDICATIONS OF ZANAFLEX, MIRAPEX, PRILOSEC, TOPROL, AMARYL, NEURONTIN, COLACE, CELEXA, VITAMIN D3, SINEMET, LIPITOR, ECOTRIN, AMLODIPINE WERE RESUMED. WE WILL CONTINUE WITH CURRENT PLAN OF CARE TODAY. OTHERWISE, WE WILL FOLLOW-UP WITH AM LABS AND CHEST XRAY AND CONTINUE TO MONITOR. TIME SPENT ON CLINICAL ASSESSMENT, REVIWING LABS AND IMAGING, DECISION MAKING, AND DOC UMENTATION GREATER THAN 45 MINUTES. - Past Medical Family Social History Past Med/Fam/Surg Hx: No changes since H&P Allergies: Allergies adhesive tape Allergy (Unknown, Verified 05/03/19 15:13) latex Allergy (Unknown, Verified 08/07/22 10:06) sulfamethoxazole [From Bactrim] Adverse Reaction (Unknown, Verified 08/07/22 10:06) trimethoprim [From Bactrim] Adverse Reaction (Unknown, Verified 08/07/22 10:06) ADHESIVE TAPE Allergy (Unknown, Uncoded 08/07/22 10:06) - Review of Systems ROS: No change since H&P - Vital Signs and I&O's Vital Signs: Temperature 98.9 F Pulse Rate 61 Respiratory Rate 25 Blood Pressure [Left Arm] 128/75 Blood Pressure 133/64 O2 Sat by Pulse Oximetry 100 Intake and Output: Intake & Output 12/11/22 12/12/22 12/13/22 12/14/22 11:59 11:59 11:59 11:59 Intake Total 1703 / 1703 1428 / 1428 2140 / 2140 Output Total 925 / 925 825 / 825 870 / 870 Balance 778 / 778 603 / 603 1270 / 1270 - Physical Exam Oriented: Normal Eyes: Normal Ear: Normal Nose: Normal Throat: Normal Respiratory: Generalized, Diminished Cardiovascular: Normal : Normal Auscultation: Bowel Sounds: Normal Palpation: Normal Tenderness: Normal Skin: Normal Musculoskeletal: Normal Psychiatric: Normal Mood Description: Flat Affect: Flat Speech Pattern: Appropriate - Laboratory and Diagnostics Result Diagrams: 12/13/22 04:20 12/13/22 04:20 Labs: 12/08/22 14:27 Urine,Catheterized Urine Culture - Final Escherichia Coli 12/08/22 16:48 Blood Blood Culture - Preliminary 12/08/22 16:18 Blood Blood Culture - Preliminary Laboratory WBC 10.6 X10^3/uL (3.6-10.0) H 12/13/22 04:20 RBC 3.98 X10^6/uL (3.5-5.4) 12/13/22 04:20 Hgb 12.1 g/dL (12.0-16.0) 12/13/22 04:20 Hct 36.2 % (36.0-47.0) 12/13/22 04:20 MCV 90.9 fL (80.0-100.0) 12/13/22 04:20 MCH 30.4 pg (27.0-34.0) 12/13/22 04:20 MCHC 33.5 g/dL (33.0-35.0) 12/13/22 04:20 RDW 13.8 % (11.6-16.5) 12/13/22 04:20 Plt Count 229 X10^3/uL (150.0-450.0) 12/13/22 04:20 Plt Count Comment Adequate (ADEQUATE) 12/12/22 04:15 MPV 8.3 fL (7.4-11.0) 12/13/22 04:20 Neut % (Auto) 79.1 % (42.0-75.0) H 12/13/22 04:20 Lymph % (Auto) 14.0 % (21.0-51.0) L 12/13/22 04:20 [place] % (Auto) 5.6 % (0.0-13.0) 12/13/22 04:20 Eos % (Auto) 1.1 % (0.9-2.9) 12/13/22 04:20 Baso % (Auto) 0.2 % (0.2-1.0) 12/13/22 04:20 Neut # (Auto) 8.4 x10^3/uL (2.2-4.8) H 12/13/22 04:20 Lymph # (Auto) 1.5 X10^3/uL (1.3-2.9) 12/13/22 04:20 [place] # (Auto) 0.6 x10^3/uL (0.3-0.8) 12/13/22 04:20 Eos # (Auto) 0.1 x10^3/uL (0.0-0.2) 12/13/22 04:20 Baso # (Auto) 0.0 X10^3/uL (0.0-0.1) 12/13/22 04:20 Absolute Nucleated RBC 0.1 /100WBC 12/13/22 04:20 Plt Clumps, EDTA Rare 12/12/22 04:15 Plt Morphology Comment Normal (NORMAL) 12/12/22 04:15 RBC Morphology Normal (NORMAL) 12/12/22 04:15 PT 14.9 SECONDS (11.8-14.3) 12/08/22 15:03 INR Target Range - 12/08/22 15:03 INR 1.20 (0.8-1.3) 12/08/22 15:03 APTT 28.4 SECONDS (22.9-36.5) 12/08/22 15:03 PTT Comment - 12/08/22 15:03 D-Dimer 3.15 ug/ml (0.0-0.57) H 12/08/22 15:03 Sodium 142 mmol/L (136-145) 12/13/22 04:20 Corrected Sodium 143 mmol/L (136-145) 12/13/22 04:20 Potassium 3.9 mmol/L (3.5-5.1) 12/13/22 04:20 Chloride 107 mmol/L (98-107) 12/13/22 04:20 Carbon Dioxide 28.7 mmol/L (21-32) 12/13/22 04:20 BUN 18 mg/dL (7-18) 12/13/22 04:20 Creatinine 1.23 mg/dL (0.55-1.02) H 12/13/22 04:20 Est GFR (MDRD) Af Amer 53 (>60) L 12/13/22 04:20 Est GFR (MDRD) Non-Af 44 (>60) L 12/13/22 04:20 Glucose 125 mg/dL (65-99) H 12/13/22 04:20 POC Glucose (mg/dL) 115 mg/dL (65-99) H 12/13/22 11:37 Lactic Acid 1.9 mmol/L (0.4-2.0) 12/09/22 04:40 Calcium 8.3 mg/dL (8.5-10.1) L 12/13/22 04:20 Corrected Calcium 9.9 mg/dL (8.5-10.1) 12/13/22 04:20 Phosphorus 3.9 mg/dL (2.6-4.7) 12/08/22 14:34 Magnesium 2.1 mg/dL (2.0-2.9) 12/10/22 04:43 Total Bilirubin 0.50 mg/dL (0.2-1.0) 12/13/22 04:20 AST 18 Units/L (15-37) 12/13/22 04:20 ALT < 6 Units/L (12-78) L 12/13/22 04:20 Alkaline Phosphatase 57 Units/L (46-116) 12/13/22 04:20 Creatine Kinase 28 Units/L (26-192) 12/09/22 04:40 Troponin I High Sens 15.2 ng/L (4.0-60.0) 12/09/22 04:40 B-Natriuretic Peptide 156 pg/mL (0-79) H 12/08/22 14:34 Total Protein 5.9 g/dL (6.4-8.2) L 12/13/22 04:20 Albumin 2.0 g/dL (3.4-5.0) L 12/13/22 04:20 Globulin 3.9 g/dL (2.5-4.5) 12/13/22 04:20 Albumin/Globulin Ratio 0.5 Ratio (1.1-2.1) L 12/13/22 04:20 Amylase 38 Units/L (25-115) 12/08/22 14:34 Lipase 64 Units/L (73-393) L 12/08/22 14:34 Cortisol 20.4 ug/dL 12/08/22 14:34 Specimen Type Catherized urine 12/08/22 14:27 Urine Color Yellow (YELLOW) 12/08/22 14:27 Urine Appearance Slightly hazy (CLEAR) 12/08/22 14:27 Urine pH 5.0 (5.0 - 8.0) 12/08/22 14:27 Ur Specific [place] 1.015 (1.000-1.030) 12/08/22 14:27 Urine Protein 1+ (NEGATIVE) 12/08/22 14:27 Urine Glucose (UA) Negative (NEGATIVE) 12/08/22 14:27 Urine Ketones Negative (NEGATIVE) 12/08/22 14:27 Urine Blood 1+ (NEGATIVE) 12/08/22 14:27 Urine Nitrite Negative (NEGATIVE) 12/08/22 14:27 Urine Bilirubin Negative (NEGATIVE) 12/08/22 14:27 Urine Urobilinogen Normal (NORMAL) 12/08/22 14:27 Ur Leukocyte Esterase 2+ (NEGATIVE) 12/08/22 14:27 Urine RBC 3-5 /HPF (0-3) A 12/08/22 14:27 Urine WBC 5-10 /HPF (0-5) A 12/08/22 14:27 Ur Squamous Epith Cells Negative /HPF (NEGATIVE) 12/08/22 14:27 Urine Bacteria 3+ /HPF (NEGATIVE) 12/08/22 14:27 Hyaline Casts Rare /LPF (NEGATIVE) 12/08/22 14:27 Ur Culture Indicated? Yes/culture set up 12/08/22 14:27 SARS-CoV-2 (PCR) Negative (NEGATIVE) 12/08/22 14:52 Influenza Type A (PCR) Negative (NEGATIVE) 12/08/22 14:52 Influenza Type B (PCR) Negative (NEGATIVE) 12/08/22 14:52 RSV (PCR) Positive (NEGATIVE) A 12/08/22 14:52 Resp Viral Panel (PCR) See scanned report 12/08/22 18:34 - Plan (1) Pneumonia Status: Acute Qualifiers: Pneumonia type: due to unspecified organism Laterality: right Lung location: unspecified part of lung Qualified Code(s): J18.9 - Pneumonia, unspecified organism Plan: SUPPLEMENTAL OXGYEN, ZOSYN 4.5G IV TID, PROBIOTICS DAILY, DUONEBS QID, PULMICORT NEBS BID, LOVENOX 30MG SC DAILY, OTBS ACHS, HUMULIN R SLIDING SCALE, THE POTASSIUM AND MAGNESIUM PROTOCOLS. HER HOME MEDICATIONS OF ZANAFLEX, MIRAPEX, PRILOSEC, TOPROL, AMARYL, NEURONTIN, COLACE, CELEXA, VITAMIN D3, SINEMET, LIPITOR, ECOTRIN, AMLODIPINE WERE RESUMED. (2) RSV (acute bronchiolitis due to respiratory syncytial virus) Status: Acute (3) UTI (urinary tract infection) Status: Acute Qualifiers: Urinary tract infection type: acute cystitis Hematuria presence: without hematuria Qualified Code(s): N30.00 - Acute cystitis without hematuria (4) AMS (altered mental status) Status: Acute Qualifiers: Altered mental status type: transient alteration of awareness Qualified Code(s): R40.4 - Transient alteration of awareness (5) Generalized weakness Status: Acute (6) D-dimer, elevated Status: Acute (7) Chronic kidney disease (CKD) Status: Chronic Qualifiers: Chronic kidney disease stage: stage 3 (moderate) Chronic kidney disease stage 3 subtype: stage 3b (GFR 30-44) Qualified Code(s): N18.32 - Chronic kidney disease, stage 3b (8) Diabetes mellitus, type II Status: Chronic Qualifiers: Diabetes mellitus long-term insulin use: without long-term use Diabetes mellitus complication status: with kidney complications Diabetes mellitus complication detail: with chronic kidney disease Chronic kidney disease stage: stage 3 (moderate) Chronic kidney disease stage 3 subtype: stage 3b (GFR 30- 44) Qualified Code(s): E11.22 - Type 2 diabetes mellitus with diabetic chronic kidney disease; N18.32 - Chronic kidney disease, stage 3b (9) GERD (gastroesophageal reflux disease) Status: Chronic Qualifiers: Esophagitis presence: esophagitis presence not specified Qualified Code(s): K21.9 - Gastro-esophageal reflux disease without esophagitis (10) HTN (hypertension) Status: Chronic Qualifiers: Hypertension type: primary hypertension Qualified Code(s): I10 - Essential (primary) hypertension (11) Hyperlipidemia Status: Chronic Qualifiers: Hyperlipidemia type: mixed hyperlipidemia Qualified Code(s): E78.2 - Mixed hyperlipidemia
--- NOTE | 2022-12-13 12:36 | PCM.PROG ---
Progress Note - Progress Note for Day of Date of Exam: 12/11/22 - Subjective Subjective: IS CURRENTLY INPATIENT STATUS FOR TREATMENT OF PNEUMONIA, E.COLI UTI, RSV, AMS, GENERALIZED WEAKNESS, AND ELEVATED D-DIMER. SHE CONTINUES TO COMPLAIN OF A NON-PRODUCTIVE COUGH AND SHORTNESS OF BREATH. SHE DENIES SIGNIFICANT IMPROVEMENT IN SYMPTOMS SINCE ADMISSION. HER PMH INCLUDES: CAD, HTN, DYSLIPIDEMIA, DM II, HYPOTHYROIDISM, ANEMIA, GERD, ARTHRITIS, KIDNEY STONES, SLEEP APNEA, CHF, HYSTERECTOMY, MASTECTOMY, BOWEL RESECTION, AND CARDIAC STENTS. ON EXAMINATION TODAY, HEART IS REGULAR IN RATE AND RHYTHM. BILATERAL LUNGS ARE NOTED WITH DIMINISHED LUNG SOUNDS THROUGHOUT. ABDOMEN IS ROUND, SOFT, AND NON- TENDER WITH NORMAL BOWEL SOUNDS NOTED IN ALL QUADRANTS. NO UPPER OR LOWER EXTREMITY EDEMA NOTED. HER VITALS THIS MORNING WERE 98.4-77-25-93%-142/69. SHE IS CURRENTLY UTILIZING OXYGEN VIA NASAL CANNULA AT 2 LPM. LABS WERE OBTAINED. WBC 10.8, RBC 4.19, HGB 12.7, HCT 38.0, PLT COUNT 225, SODIUM 147, POTASSIUM 3.9, CHLORIDE 109, BUN 31, CREATININE 1.47, GLUCOSE 147, CALCIUM 8.6, TOTAL BILI 0.70, AST 15, ALT <6, ALK PHOS 60, TOTAL PROTEIN 6.1, ALBUMIN 2.1. URINE CULTURE POSITIVE FOR GROWTH OF E.COLI. A CHEST XRAY WAS OBTAINED AND REVEALED: Persistent right-sided infiltrates with slight improvement in the right lower lung. SHE IS CURRENTLY RECEIVING ZOSYN 4.5G IV TID, PROBIOTICS DAILY, DUONEBS QID, PULMICORT NEBS BID, ROBITUSSIN DM 10ML QID, LOVENOX 30MG SC DAILY, OTBS ACHS, HUMULIN R SLIDING SCALE, THE POTASSIUM AND MAGNESIUM PROTOCOLS. HER HOME MEDICATIONS OF ZANAFLEX, MIRAPEX, PRILOSEC, TOPROL, AMARYL, NEURONTIN, COLACE, CELEXA, VITAMIN D3, SINEMET, LIPITOR, ECOTRIN, AMLODIPINE WERE RESUMED. WE WILL CONTINUE WITH CURRENT PLAN OF CARE TODAY. OTHERWISE, WE WILL FOLLOW-UP WITH AM LABS AND CHEST XRAY AND CONTINUE TO MONITOR. TIME SPENT ON CLINICAL ASSESSMENT, REVIWING LABS AND IMAGING, DECISION MAKING, AND DOCUMENTATION GREATER THAN 45 MINUTES. - Past Medical Family Social History Past Med/Fam/Surg Hx: No changes since H&P Allergies: Allergies adhesive tape Allergy (Unknown, Verified 05/03/19 15:13) latex Allergy (Unknown, Verified 08/07/22 10:06) sulfamethoxazole [From Bactrim] Adverse Reaction (Unknown, Verified 08/07/22 10:06) trimethoprim [From Bactrim] Adverse Reaction (Unknown, Verified 08/07/22 10:06) ADHESIVE TAPE Allergy (Unknown, Uncoded 08/07/22 10:06) - Review of Systems ROS: No change since H&P - Vital Signs and I&O's Vital Signs: Temperature 98.9 F Pulse Rate 61 Respiratory Rate 25 Blood Pressure [Left Arm] 128/75 Blood Pressure 133/64 O2 Sat by Pulse Oximetry 100 Intake and Output: Intake & Output 12/11/22 12/12/22 12/13/22 12/14/22 11:59 11:59 11:59 11:59 Intake Total 1703 / 1703 1428 / 1428 2140 / 2140 Output Total 925 / 925 825 / 825 870 / 870 Balance 778 / 778 603 / 603 1270 / 1270 - Physical Exam Oriented: Normal Eyes: Normal Ear: Normal Nose: Normal Throat: Normal Respiratory: Generalized, Diminished Cardiovascular: Normal : Normal Auscultation: Bowel Sounds: Normal Palpation: Normal Tenderness: Normal Skin: Normal Musculoskeletal: Normal Psychiatric: Normal Mood Description: Flat Affect: Flat Speech Pattern: Appropriate - Laboratory and Diagnostics Result Diagrams: 12/13/22 04:20 12/13/22 04:20 Labs: 12/08/22 14:27 Urine,Catheterized Urine Culture - Final Escherichia Coli 12/08/22 16:48 Blood Blood Culture - Preliminary 12/08/22 16:18 Blood Blood Culture - Preliminary Laboratory WBC 10.6 X10^3/uL (3.6-10.0) H 12/13/22 04:20 RBC 3.98 X10^6/uL (3.5-5.4) 12/13/22 04:20 Hgb 12.1 g/dL (12.0-16.0) 12/13/22 04:20 Hct 36.2 % (36.0-47.0) 12/13/22 04:20 MCV 90.9 fL (80.0-100.0) 12/13/22 04:20 MCH 30.4 pg (27.0-34.0) 12/13/22 04:20 MCHC 33.5 g/dL (33.0-35.0) 12/13/22 04:20 RDW 13.8 % (11.6-16.5) 12/13/22 04:20 Plt Count 229 X10^3/uL (150.0-450.0) 12/13/22 04:20 Plt Count Comment Adequate (ADEQUATE) 12/12/22 04:15 MPV 8.3 fL (7.4-11.0) 12/13/22 04:20 Neut % (Auto) 79.1 % (42.0-75.0) H 12/13/22 04:20 Lymph % (Auto) 14.0 % (21.0-51.0) L 12/13/22 04:20 [place] % (Auto) 5.6 % (0.0-13.0) 12/13/22 04:20 Eos % (Auto) 1.1 % (0.9-2.9) 12/13/22 04:20 Baso % (Auto) 0.2 % (0.2-1.0) 12/13/22 04:20 Neut # (Auto) 8.4 x10^3/uL (2.2-4.8) H 12/13/22 04:20 Lymph # (Auto) 1.5 X10^3/uL (1.3-2.9) 12/13/22 04:20 [place] # (Auto) 0.6 x10^3/uL (0.3-0.8) 12/13/22 04:20 Eos # (Auto) 0.1 x10^3/uL (0.0-0.2) 12/13/22 04:20 Baso # (Auto) 0.0 X10^3/uL (0.0-0.1) 12/13/22 04:20 Absolute Nucleated RBC 0.1 /100WBC 12/13/22 04:20 Plt Clumps, EDTA Rare 12/12/22 04:15 Plt Morphology Comment Normal (NORMAL) 12/12/22 04:15 RBC Morphology Normal (NORMAL) 12/12/22 04:15 PT 14.9 SECONDS (11.8-14.3) 12/08/22 15:03 INR Target Range - 12/08/22 15:03 INR 1.20 (0.8-1.3) 12/08/22 15:03 APTT 28.4 SECONDS (22.9-36.5) 12/08/22 15:03 PTT Comment - 12/08/22 15:03 D-Dimer 3.15 ug/ml (0.0-0.57) H 12/08/22 15:03 Sodium 142 mmol/L (136-145) 12/13/22 04:20 Corrected Sodium 143 mmol/L (136-145) 12/13/22 04:20 Potassium 3.9 mmol/L (3.5-5.1) 12/13/22 04:20 Chloride 107 mmol/L (98-107) 12/13/22 04:20 Carbon Dioxide 28.7 mmol/L (21-32) 12/13/22 04:20 BUN 18 mg/dL (7-18) 12/13/22 04:20 Creatinine 1.23 mg/dL (0.55-1.02) H 12/13/22 04:20 Est GFR (MDRD) Af Amer 53 (>60) L 12/13/22 04:20 Est GFR (MDRD) Non-Af 44 (>60) L 12/13/22 04:20 Glucose 125 mg/dL (65-99) H 12/13/22 04:20 POC Glucose (mg/dL) 115 mg/dL (65-99) H 12/13/22 11:37 Lactic Acid 1.9 mmol/L (0.4-2.0) 12/09/22 04:40 Calcium 8.3 mg/dL (8.5-10.1) L 12/13/22 04:20 Corrected Calcium 9.9 mg/dL (8.5-10.1) 12/13/22 04:20 Phosphorus 3.9 mg/dL (2.6-4.7) 12/08/22 14:34 Magnesium 2.1 mg/dL (2.0-2.9) 12/10/22 04:43 Total Bilirubin 0.50 mg/dL (0.2-1.0) 12/13/22 04:20 AST 18 Units/L (15-37) 12/13/22 04:20 ALT < 6 Units/L (12-78) L 12/13/22 04:20 Alkaline Phosphatase 57 Units/L (46-116) 12/13/22 04:20 Creatine Kinase 28 Units/L (26-192) 12/09/22 04:40 Troponin I High Sens 15.2 ng/L (4.0-60.0) 12/09/22 04:40 B-Natriuretic Peptide 156 pg/mL (0-79) H 12/08/22 14:34 Total Protein 5.9 g/dL (6.4-8.2) L 12/13/22 04:20 Albumin 2.0 g/dL (3.4-5.0) L 12/13/22 04:20 Globulin 3.9 g/dL (2.5-4.5) 12/13/22 04:20 Albumin/Globulin Ratio 0.5 Ratio (1.1-2.1) L 12/13/22 04:20 Amylase 38 Units/L (25-115) 12/08/22 14:34 Lipase 64 Units/L (73-393) L 12/08/22 14:34 Cortisol 20.4 ug/dL 12/08/22 14:34 Specimen Type Catherized urine 12/08/22 14:27 Urine Color Yellow (YELLOW) 12/08/22 14:27 Urine Appearance Slightly hazy (CLEAR) 12/08/22 14:27 Urine pH 5.0 (5.0 - 8.0) 12/08/22 14:27 Ur Specific [place] 1.015 (1.000-1.030) 12/08/22 14:27 Urine Protein 1+ (NEGATIVE) 12/08/22 14:27 Urine Glucose (UA) Negative (NEGATIVE) 12/08/22 14:27 Urine Ketones Negative (NEGATIVE) 12/08/22 14:27 Urine Blood 1+ (NEGATIVE) 12/08/22 14:27 Urine Nitrite Negative (NEGATIVE) 12/08/22 14:27 Urine Bilirubin Negative (NEGATIVE) 12/08/22 14:27 Urine Urobilinogen Normal (NORMAL) 12/08/22 14:27 Ur Leukocyte Esterase 2+ (NEGATIVE) 12/08/22 14:27 Urine RBC 3-5 /HPF (0-3) A 12/08/22 14:27 Urine WBC 5-10 /HPF (0-5) A 12/08/22 14:27 Ur Squamous Epith Cells Negative /HPF (NEGATIVE) 12/08/22 14:27 Urine Bacteria 3+ /HPF (NEGATIVE) 12/08/22 14:27 Hyaline Casts Rare /LPF (NEGATIVE) 12/08/22 14:27 Ur Culture Indicated? Yes/culture set up 12/08/22 14:27 SARS-CoV-2 (PCR) Negative (NEGATIVE) 12/08/22 14:52 Influenza Type A (PCR) Negative (NEGATIVE) 12/08/22 14:52 Influenza Type B (PCR) Negative (NEGATIVE) 12/08/22 14:52 RSV (PCR) Positive (NEGATIVE) A 12/08/22 14:52 Resp Viral Panel (PCR) See scanned report 12/08/22 18:34 - Plan (1) Pneumonia Status: Acute Qualifiers: Pneumonia type: due to unspecified organism Laterality: right Lung location: unspecified part of lung Qualified Code(s): J18.9 - Pneumonia, unspecified organism Plan: SUPPLEMENTAL OXGYEN, ZOSYN 4.5G IV TID, PROBIOTICS DAILY, DUONEBS QID, PULMICORT NEBS BID, ROBITUSSIN DM 10ML QID, LOVENOX 30MG SC DAILY, OTBS ACHS, HUMULIN R SLIDING SCALE, THE POTASSIUM AND MAGNESIUM PROTOCOLS. HER HOME MEDI CATIONS OF ZANAFLEX, MIRAPEX, PRILOSEC, TOPROL, AMARYL, NEURONTIN, COLACE, CELEXA, VITAMIN D3, SINEMET, LIPITOR, ECOTRIN, AMLODIPINE WERE RESUMED. (2) RSV (acute bronchiolitis due to respiratory syncytial virus) Status: Acute (3) UTI (urinary tract infection) Status: Acute Qualifiers: Urinary tract infection type: acute cystitis Hematuria presence: without hematuria Qualified Code(s): N30.00 - Acute cystitis without hematuria (4) AMS (altered mental status) Status: Acute Qualifiers: Altered mental status type: transient alteration of awareness Qualified Code(s): R40.4 - Transient alteration of awareness (5) Generalized weakness Status: Acute (6) D-dimer, elevated Status: Acute (7) Chronic kidney disease (CKD) Status: Chronic Qualifiers: Chronic kidney disease stage: stage 3 (moderate) Chronic kidney disease stage 3 subtype: stage 3b (GFR 30-44) Qualified Code(s): N18.32 - Chronic kidney disease, stage 3b (8) Diabetes mellitus, type II Status: Chronic Qualifiers: Diabetes mellitus mcc insulin use: without school health aide use Diabetes mellitus complication status: with kidney complications Diabetes mellitus complication detail: with chronic kidney disease Chronic kidney disease stage: stage 3 (moderate) Chronic kidney disease stage 3 subtype: stage 3b (GFR 30- 44) Qualified Code(s): E11.22 - Type 2 diabetes mellitus with diabetic chronic kidney disease; N18.32 - Chronic kidney disease, stage 3b (9) GERD (gastroesophageal reflux disease) Status: Chronic Qualifiers: Esophagitis presence: esophagitis presence not specified Qualified Code(s): K21.9 - Gastro-esophageal reflux disease without esophagitis (10) HTN (hypertension) Status: Chronic Qualifiers: Hypertension type: primary hypertension Qualified Code(s): I10 - Essential (primary) hypertension (11) Hyperlipidemia Status: Chronic Qualifiers: Hyperlipidemia type: mixed hyperlipidemia Qualified Code(s): E78.2 - Mixed hyperlipidemia
[2022-12-13] MEDS: ZANAFLEX PO SCH (20:14)
[2022-12-13] MEDS: ASPIRIN EC 81 MG PO SCH (20:15)
[2022-12-13] MEDS: RESTORIL CAP 15 MG PO PRN (20:18)
[2022-12-13] MEDS: LIPITOR TAB 10 MG PO SCH (20:19)
[2022-12-13] MEDS: SNACK - Diabetic Appropriate PO SCH (20:23)
[2022-12-14] MEDS: ZOSYN VIAL 3.375 GRAMS 3.375 G in NS 100 ML IV 100 ML IV SCH ×3 (05:08→21:08)
[2022-12-14 05:22] LABS: BASOPHILS % (AUTO) 0.2 % (0.2-1.0); EOSINOPHILS # (AUTO) 0.1 x10^3/uL (0.0-0.2); EOSINOPHILS % (AUTO) 1.3 % (0.9-2.9); HEMATOCRIT 36.5 % (36.0-47.0); HEMOGLOBIN 12.2 g/dL (12.0-16.0); LYMPHOCYTES # (AUTO) 1.5 X10^3/uL (1.3-2.9); LYMPHOCYTES % (AUTO) 13.7 % (21.0-51.0); MEAN CORPUSCULAR HEMOGLOBIN 30.4 pg (27.0-34.0); MEAN CORPUSCULAR HGB CONC 33.5 g/dL (33.0-35.0); MEAN CORPUSCULAR VOLUME 90.8 fL (80.0-100.0); MEAN PLATELET VOLUME 8.4 fL (7.4-11.0); MONOCYTES # (AUTO) 0.6 x10^3/uL (0.3-0.8); MONOCYTES % (AUTO) 5.1 % (0.0-13.0); NEUTROPHILS # (AUTO) 8.7 x10^3/uL (2.2-4.8); NEUTROPHILS % (AUTO) 79.7 % (42.0-75.0); RED BLOOD COUNT 4.02 X10^6/uL (3.5-5.4); RED CELL DISTRIBUTION WIDTH 13.8 % (11.6-16.5); WHITE BLOOD COUNT 10.9 X10^3/uL (3.6-10.0)
[2022-12-14] MEDS: SINEMET (PLAIN) 25/250 MG PO SCH ×3 (05:39→21:07)
[2022-12-14] MEDS: MIRAPEX TAB 1 MG PO SCH ×3 (05:39→21:07)
[2022-12-14 05:43] LABS: ALANINE AMINOTRANSFERASE < 6 Units/L (12-78); ALBUMIN 2.1 g/dL (3.4-5.0); ALKALINE PHOSPHATASE 59 Units/L (46-116); ASPARTATE AMINO TRANSFERASE 25 Units/L (15-37); BLOOD UREA NITROGEN 14 mg/dL (7-18); CALCIUM 8.4 mg/dL (8.5-10.1); CARBON DIOXIDE 26.3 mmol/L (21-32); CHLORIDE 106 mmol/L (98-107); COR CA(FOR HYPOALB) 9.9 mg/dL (8.5-10.1); COR NA(FOR HYPERGLY) 139 mmol/L (136-145); CREATININE 1.22 mg/dL (0.55-1.02); SODIUM 138 mmol/L (136-145); TOTAL PROTEIN 5.9 g/dL (6.4-8.2); eGFR NON BLACK RACES 44 (>60)
[2022-12-14 06:20] LABS: BAND NEUTROPHILS % 5 % (0-10); METAMYELOCYTES % 1; PLATELET MORPHOLOGY COMMENT NORMAL (NORMAL)
[2022-12-14] MEDS: DUONEB 0.5 MG/3 MG (3 mL) NEB SCH ×6 (08:22→19:59)
[2022-12-14] MEDS: PULMICORT NEB TX 0.5 MG NEB SCH ×2 (08:22→19:59)
[2022-12-14] MEDS: LOVENOX INJ 30 MG SYR SC SCH (08:46)
[2022-12-14] MEDS: DIFLUCAN 100 MG IV (MIX by PHARMACY)* 100 MG/50 ML BAG IV SCH (08:46)
[2022-12-14] MEDS: NEURONTIN CAP 300 MG PO SCH ×2 (08:47→20:18)
[2022-12-14] MEDS: PriLOSEC PO SCH ×2 (08:47→20:14)
[2022-12-14] MEDS: COLACE CAP 100 MG PO SCH (08:47)
[2022-12-14] MEDS: AMARYL TAB 4 MG PO SCH ×2 (08:47→20:18)
[2022-12-14] MEDS: VSL#3 PO SCH (08:47)
[2022-12-14] MEDS: TOPROL XL PO SCH ×2 (08:48→20:19)
[2022-12-14] MEDS: VITAMIN D3 25 mcg (1,000 UNITS) PO SCH (08:48)
[2022-12-14] MEDS: CELEXA PO SCH (08:48)
[2022-12-14] MEDS: NORVASC TAB 10 MG PO SCH (08:48)
[2022-12-14] MEDS: PEPCID TAB 20 MG PO SCH (08:48)
--- NOTE | 2022-12-14 11:36 | PCM.PROG ---
Progress Note - Progress Note for Day of Date of Exam: 12/13/22 - Subjective Subjective: IS CURRENTLY INPATIENT STATUS FOR TREATMENT OF PNEUMONIA, E.COLI UTI, RSV, AMS, GENERALIZED WEAKNESS, AND ELEVATED D-DIMER. SHE CONTINUES TO COMPLAIN OF A NON-PRODUCTIVE COUGH AND SHORTNESS OF BREATH. SHE REPORTS SLIGHT IMPROVEMENT IN SYMPTOMS SINCE ADMISSION. SHE DOES ADMIT TO PERSISTENT WEAKNESS. STAFF REPORTS THAT SHE HAS AMBULATED IN ROOM WITH ASSISTANCE. HER PMH INCLUDES: CAD, HTN, DYSLIPIDEMIA, DM II, HYPOTHYROIDISM, ANEMIA, GERD, ARTHRITIS, KIDNEY STONES, SLEEP APNEA, CHF, HYSTERECTOMY, MASTECTOMY, BOWEL RESECTION, AND CARDIAC STENTS. ON EXAMINATION TODAY, HEART IS REGULAR IN RATE AND RHYTHM. BILATERAL LUNGS ARE NOTED WITH SCATTERED WHEEZING THROUGHOUT. ABDOMEN IS ROUND, SOFT, AND NON-TENDER WITH NORMAL BOWEL SOUNDS NOTED IN ALL QUADRANTS. NO UPPER OR LOWER EXTREMITY EDEMA NOTED. HER VITALS THIS MORNING WERE 98.9-64-26-95%-112/66. SHE IS CURRENTLY UTILIZING OXYGEN VIA NASAL CANNULA AT 3 LPM. LABS WERE OBTAINED. WBC 10.6, RBC 3.98, HGB 12.1, HCT 36.2, PLT COUNT 229, SODIUM 142, POTASSIUM 3.9, CHLORIDE 107, BUN 18, CREATININE 1.23, GLUCOSE 125, CALCIUM 8.3, AST 18, ALT <6, ALK PHOS 57, TOTAL PROTEIN 5.9, ALBUMIN 2.0. URINE CULTURE POSITIVE FOR GROWTH OF E.COLI. AIT RESPIRATORY PANEL IS ALSO POSITIVE FOR GROWTH OF E.COLI WELL JAYLON ALBICANS. A CHEST XRAY WAS OBTAINED AND REVEALED: Focal alveolar radiopacities involving the periphery of the lungs with interval worsening in the right. SHE IS CURRENTLY RECEIVING ZOSYN 4.5G IV TID, PROBIOTICS DAILY, DUONEBS QID, PULMICORT NEBS BID, ROBITUSSIN DM 10ML QID, LOVENOX 30MG SC DAILY, OTBS ACHS, HUMULIN R SLIDING SCALE, THE POTASSIUM AND MAGNESIUM PROTOCOLS. HER HOME MEDICATIONS OF ZANAFLEX, MIRAPEX, PRILOSEC, TOPROL, AMARYL, NEURONTIN, COLACE, CELEXA, VITAMIN D3, SINEMET, LIPITOR, ECOTRIN, AMLODIPINE WERE RESUMED. TODAY, WE WILL ADD DIFLUCAN 100MG IV DAILY. OTHERWISE, WE WILL CONTINUE WITH CURRENT PLAN OF CARE. WE WILL FOLLOW-UP WITH AM LABS AND CHEST XRAY AND CONTINUE TO MONITOR. TIME SPENT ON CLINICAL ASSESSMENT, REVIWING LABS AND IMAGING, DECISION MAKING, AND DOCUMENTATION GREATER THAN 45 M INUTES. - Past Medical Family Social History Past Med/Fam/Surg Hx: No changes since H&P Allergies: Allergies adhesive tape Allergy (Unknown, Verified 05/03/19 15:13) latex Allergy (Unknown, Verified 08/07/22 10:06) sulfamethoxazole [From Bactrim] Adverse Reaction (Unknown, Verified 08/07/22 10:06) trimethoprim [From Bactrim] Adverse Reaction (Unknown, Verified 08/07/22 10:06) ADHESIVE TAPE Allergy (Unknown, Uncoded 08/07/22 10:06) - Review of Systems ROS: No change since H&P - Vital Signs and I&O's Vital Signs: Temperature 98.1 F Pulse Rate 60 Respiratory Rate 20 Blood Pressure [Left Arm] 128/75 Blood Pressure 129/67 O2 Sat by Pulse Oximetry 96 Intake and Output: Intake & Output 12/11/22 12/12/22 12/13/22 12/14/22 11:59 11:59 11:59 11:59 Intake Total 1703 / 1703 1428 / 1428 2140 / 2140 1123 / 1123 Output Total 925 / 925 825 / 825 870 / 870 1950 / 1950 Balance 778 / 778 603 / 603 1270 / 1270 -827 / -827 - Physical Exam Oriented: Normal Eyes: Normal Ear: Normal Nose: Normal Throat: Normal Respiratory: Generalized, Wheezes Cardiovascular: Normal : Normal Auscultation: Bowel Sounds: Normal Palpation: Normal Tenderness: Normal Skin: Normal Musculoskeletal: Normal Psychiatric: Normal Mood Description: Flat Affect: Flat Speech Pattern: Appropriate - Laboratory and Diagnostics Result Diagrams: 12/14/22 04:05 12/14/22 04:05 Labs: 12/08/22 16:48 Blood Blood Culture - Final 12/08/22 16:18 Blood Blood Culture - Final 12/08/22 14:27 Urine,Catheterized Urine Culture - Final Escherichia Coli Laboratory WBC 10.9 X10^3/uL (3.6-10.0) H 12/14/22 04:05 RBC 4.02 X10^6/uL (3.5-5.4) 12/14/22 04:05 Hgb 12.2 g/dL (12.0-16.0) 12/14/22 04:05 Hct 36.5 % (36.0-47.0) 12/14/22 04:05 MCV 90.8 fL (80.0-100.0) 12/14/22 04:05 MCH 30.4 pg (27.0-34.0) 12/14/22 04:05 MCHC 33.5 g/dL (33.0-35.0) 12/14/22 04:05 RDW 13.8 % (11.6-16.5) 12/14/22 04:05 Plt Count 220 X10^3/uL (150.0-450.0) 12/14/22 04:05 Plt Count Comment Adequate (ADEQUATE) 12/14/22 04:05 MPV 8.4 fL (7.4-11.0) 12/14/22 04:05 Neut % (Auto) 79.7 % (42.0-75.0) H 12/14/22 04:05 Lymph % (Auto) 13.7 % (21.0-51.0) L 12/14/22 04:05 [place] % (Auto) 5.1 % (0.0-13.0) 12/14/22 04:05 Eos % (Auto) 1.3 % (0.9-2.9) 12/14/22 04:05 Baso % (Auto) 0.2 % (0.2-1.0) 12/14/22 04:05 Neut # (Auto) 8.7 x10^3/uL (2.2-4.8) H 12/14/22 04:05 Lymph # (Auto) 1.5 X10^3/uL (1.3-2.9) 12/14/22 04:05 [place] # (Auto) 0.6 x10^3/uL (0.3-0.8) 12/14/22 04:05 Eos # (Auto) 0.1 x10^3/uL (0.0-0.2) 12/14/22 04:05 Baso # (Auto) 0.0 X10^3/uL (0.0-0.1) 12/14/22 04:05 Absolute Nucleated RBC 0.1 /100WBC 12/14/22 04:05 Total Counted 100 12/14/22 04:05 Neutrophils % (Manual) 79 % (39-76) H 12/14/22 04:05 Band Neutrophils % 5 % (0-10) 12/14/22 04:05 Lymphocytes % (Manual) 10 % (13-43) L 12/14/22 04:05 Monocytes % (Manual) 4 % (4-9) 12/14/22 04:05 Eosinophils % (Manual) 1 % (0-6) 12/14/22 04:05 Metamyelocytes % 1 12/14/22 04:05 Plt Clumps, EDTA Rare 12/12/22 04:15 Plt Morphology Comment Normal (NORMAL) 12/14/22 04:05 RBC Morphology Normal (NORMAL) 12/14/22 04:05 PT 14.9 SECONDS (11.8-14.3) 12/08/22 15:03 INR Target Range - 12/08/22 15:03 INR 1.20 (0.8-1.3) 12/08/22 15:03 APTT 28.4 SECONDS (22.9-36.5) 12/08/22 15:03 PTT Comment - 12/08/22 15:03 D-Dimer 3.15 ug/ml (0.0-0.57) H 12/08/22 15:03 Sodium 138 mmol/L (136-145) 12/14/22 04:05 Corrected Sodium 139 mmol/L (136-145) 12/14/22 04:05 Potassium 3.9 mmol/L (3.5-5.1) 12/14/22 04:05 Chloride 106 mmol/L (98-107) 12/14/22 04:05 Carbon Dioxide 26.3 mmol/L (21-32) 12/14/22 04:05 BUN 14 mg/dL (7-18) 12/14/22 04:05 Creatinine 1.22 mg/dL (0.55-1.02) H 12/14/22 04:05 Est GFR (MDRD) Af Amer 53 (>60) L 12/14/22 04:05 Est GFR (MDRD) Non-Af 44 (>60) L 12/14/22 04:05 Glucose 159 mg/dL (65-99) H 12/14/22 04:05 POC Glucose (mg/dL) 104 mg/dL (65-99) H 12/14/22 11:18 Lactic Acid 1.9 mmol/L (0.4-2.0) 12/09/22 04:40 Calcium 8.4 mg/dL (8.5-10.1) L 12/14/22 04:05 Corrected Calcium 9.9 mg/dL (8.5-10.1) 12/14/22 04:05 Phosphorus 3.9 mg/dL (2.6-4.7) 12/08/22 14:34 Magnesium 2.1 mg/dL (2.0-2.9) 12/10/22 04:43 Total Bilirubin 0.50 mg/dL (0.2-1.0) 12/14/22 04:05 AST 25 Units/L (15-37) 12/14/22 04:05 ALT < 6 Units/L (12-78) L 12/14/22 04:05 Alkaline Phosphatase 59 Units/L (46-116) 12/14/22 04:05 Creatine Kinase 28 Units/L (26-192) 12/09/22 04:40 Troponin I High Sens 15.2 ng/L (4.0-60.0) 12/09/22 04:40 B-Natriuretic Peptide 156 pg/mL (0-79) H 12/08/22 14:34 Total Protein 5.9 g/dL (6.4-8.2) L 12/14/22 04:05 Albumin 2.1 g/dL (3.4-5.0) L 12/14/22 04:05 Globulin 3.8 g/dL (2.5-4.5) 12/14/22 04:05 Albumin/Globulin Ratio 0.6 Ratio (1.1-2.1) L 12/14/22 04:05 Amylase 38 Units/L (25-115) 12/08/22 14:34 Lipase 64 Units/L (73-393) L 12/08/22 14:34 Cortisol 20.4 ug/dL 12/08/22 14:34 Specimen Type Catherized urine 12/08/22 14:27 Urine Color Yellow (YELLOW) 12/08/22 14:27 Urine Appearance Slightly hazy (CLEAR) 12/08/22 14:27 Urine pH 5.0 (5.0 - 8.0) 12/08/22 14:27 Ur Specific [place] 1.015 (1.000-1.030) 12/08/22 14:27 Urine Protein 1+ (NEGATIVE) 12/08/22 14:27 Urine Glucose (UA) Negative (NEGATIVE) 12/08/22 14:27 Urine Ketones Negative (NEGATIVE) 12/08/22 14:27 Urine Blood 1+ (NEGATIVE) 12/08/22 14:27 Urine Nitrite Negative (NEGATIVE) 12/08/22 14:27 Urine Bilirubin Negative (NEGATIVE) 12/08/22 14:27 Urine Urobilinogen Normal (NORMAL) 12/08/22 14:27 Ur Leukocyte Esterase 2+ (NEGATIVE) 12/08/22 14:27 Urine RBC 3-5 /HPF (0-3) A 12/08/22 14:27 Urine WBC 5-10 /HPF (0-5) A 12/08/22 14:27 Ur Squamous Epith Cells Negative /HPF (NEGATIVE) 12/08/22 14:27 Urine Bacteria 3+ /HPF (NEGATIVE) 12/08/22 14:27 Hyaline Casts Rare /LPF (NEGATIVE) 12/08/22 14:27 Ur Culture Indicated? Yes/culture set up 12/08/22 14:27 SARS-CoV-2 (PCR) Negative (NEGATIVE) 12/08/22 14:52 Influenza Type A (PCR) Negative (NEGATIVE) 12/08/22 14:52 Influenza Type B (PCR) Negative (NEGATIVE) 12/08/22 14:52 RSV (PCR) Positive (NEGATIVE) A 12/08/22 14:52 Resp Viral Panel (PCR) See scanned report 12/08/22 18:34 - Plan (1) Pneumonia Status: Acute Qualifiers: Pneumonia type: due to Escherichia coli Laterality: right Lung location: unspecified part of lung Qualified Code(s): J15.5 - Pneumonia due to Escherichia coli Plan: SUPPLEMENTAL OXGYEN, ZOSYN 4.5G IV TID, DIFLUCAN 100MG IV DAILY, PROBIOTICS DAILY, DUONEBS QID, PULMICORT NEBS BID, ROBITUSSIN DM 10ML QID, LOVENOX 30MG SC DAILY, OTBS ACHS, HUMULIN R SLIDING SCALE, THE POTASSIUM AND MAGNESIUM PROTOCOLS. HER HOME MEDICATIONS OF ZANAFLEX, MIRAPEX, PRILOSEC, TOPROL, AMARYL, NEURONTIN, COLACE, CELEXA, VITAMIN D3, SINEMET, LIPITOR, ECOTRIN, AMLODIPINE WERE RESUMED. (2) Jaylon albicans infection Status: Acute (3) RSV (acute bronchiolitis due to respiratory syncytial virus) Status: Acute (4) UTI (urinary tract infection) Status: Acute Qualifiers: Urinary tract infection type: acute cystitis Hematuria presence: without hematuria Qualified Code(s): N30.00 - Acute cystitis without hematuria (5) AMS (altered mental status) Status: Acute Qualifiers: Altered mental status type: transient alteration of awareness Qualified Code(s): R40.4 - Transient alteration of awareness (6) Generalized weakness Status: Acute (7) D-dimer, elevated Status: Acute (8) Chronic kidney disease (CKD) Status: Chronic Qualifiers: Chronic kidney disease stage: stage 3 (moderate) Chronic kidney disease stage 3 subtype: stage 3b (GFR 30-44) Qualified Code(s): N18.32 - Chronic kidney disease, stage 3b (9) Diabetes mellitus, type II Status: Chronic Qualifiers: Diabetes mellitus fdc insulin use: without lobsterman use Diabetes mellitus complication status: with kidney complications Diabetes mellitus complication detail: with chronic kidney disease Chronic kidney disease stage: stage 3 (moderate) Chronic kidney disease stage 3 subtype: stage 3b (GFR 30- 44) Qualified Code(s): E11.22 - Type 2 diabetes mellitus with diabetic chronic kidney disease; N18.32 - Chronic kidney disease, stage 3b (10) GERD (gastroesophageal reflux disease) Status: Chronic Qualifiers: Esophagitis presence: esophagitis presence not specified Qualified Code(s): K21.9 - Gastro-esophageal reflux disease without esophagitis (11) HTN (hypertension) Status: Chronic Qualifiers: Hypertension type: primary hypertension Qualified Code(s): I10 - Essential (primary) hypertension (12) Hyperlipidemia Status: Chronic Qualifiers: Hyperlipidemia type: mixed hyperlipidemia Qualified Code(s): E78.2 - Mixed hyperlipidemia
--- NOTE | 2022-12-14 14:22 | RAD ---
HISTORYRSV, SOBSTUDYCHEST, 1 VIEWCOMPARISONChest x-ray 12/13/2022FINDINGSRight chest wall [id number] and left chest pacemaker appear stable. Heart is stable in size. Mild interval improvement and peripheral airspace opacities with mild residuals. No pneumothorax, pleural effusion, focal consolidation. No acute osseous abnormality.IMPRESSIONMild interval decrease in peripheral airspace opacities with mild residuals.Cardiomegaly.Stable lines and tubes as above.Electronically signed by: Negrito Verdugo (Dec 14, 2022 14:21:18)
[2022-12-14] MEDS: TESSALON PERLES PO PRN (20:12)
[2022-12-14] MEDS: LIPITOR TAB 10 MG PO SCH (20:12)
[2022-12-14] MEDS: ZANAFLEX PO SCH (20:13)
[2022-12-14] MEDS: SNACK - Diabetic Appropriate PO SCH (20:15)
[2022-12-14] MEDS: ASPIRIN EC 81 MG PO SCH (20:17)
[2022-12-14] MEDS: RESTORIL CAP 15 MG PO PRN (20:18)
[2022-12-15 04:34] LABS: BASOPHILS # (AUTO) 0.1 X10^3/uL (0.0-0.1); BASOPHILS % (AUTO) 0.5 % (0.2-1.0); EOSINOPHILS # (AUTO) 0.2 x10^3/uL (0.0-0.2); EOSINOPHILS % (AUTO) 1.4 % (0.9-2.9); HEMATOCRIT 35.9 % (36.0-47.0); HEMOGLOBIN 12.1 g/dL (12.0-16.0); LYMPHOCYTES # (AUTO) 1.3 X10^3/uL (1.3-2.9); LYMPHOCYTES % (AUTO) 11.8 % (21.0-51.0); MEAN CORPUSCULAR HEMOGLOBIN 30.1 pg (27.0-34.0); MEAN CORPUSCULAR HGB CONC 33.6 g/dL (33.0-35.0); MEAN CORPUSCULAR VOLUME 89.4 fL (80.0-100.0); MEAN PLATELET VOLUME 8.1 fL (7.4-11.0); MONOCYTES # (AUTO) 0.7 x10^3/uL (0.3-0.8); MONOCYTES % (AUTO) 6.6 % (0.0-13.0); NEUTROPHILS # (AUTO) 8.6 x10^3/uL (2.2-4.8); NEUTROPHILS % (AUTO) 79.7 % (42.0-75.0); RED BLOOD COUNT 4.01 X10^6/uL (3.5-5.4); RED CELL DISTRIBUTION WIDTH 13.5 % (11.6-16.5); WHITE BLOOD COUNT 10.8 X10^3/uL (3.6-10.0)
[2022-12-15 04:44] LABS: ALBUMIN 2.1 g/dL (3.4-5.0); ALKALINE PHOSPHATASE 56 Units/L (46-116); ASPARTATE AMINO TRANSFERASE 21 Units/L (15-37); BLOOD UREA NITROGEN 12 mg/dL (7-18); CALCIUM 8.2 mg/dL (8.5-10.1); CARBON DIOXIDE 26.5 mmol/L (21-32); CHLORIDE 104 mmol/L (98-107); COR CA(FOR HYPOALB) 9.7 mg/dL (8.5-10.1); CREATININE 1.15 mg/dL (0.55-1.02); SODIUM 135 mmol/L (136-145); TOTAL PROTEIN 5.7 g/dL (6.4-8.2); eGFR NON BLACK RACES 47 (>60)
[2022-12-15 04:53] LABS: ALANINE AMINOTRANSFERASE < 6 Units/L (12-78)
[2022-12-15 05:00] LABS: BAND NEUTROPHILS % 3 % (0-10)
[2022-12-15 05:01] LABS: PLATELET MORPHOLOGY COMMENT NORMAL (NORMAL)
[2022-12-15] MEDS: ZOSYN VIAL 3.375 GRAMS 3.375 G in NS 100 ML IV 100 ML IV SCH ×3 (05:07→21:08)
[2022-12-15] MEDS: SINEMET (PLAIN) 25/250 MG PO SCH ×3 (05:25→21:08)
[2022-12-15] MEDS: MIRAPEX TAB 1 MG PO SCH ×3 (05:25→21:07)
[2022-12-15] MEDS: PULMICORT NEB TX 0.5 MG NEB SCH ×2 (08:36→20:05)
[2022-12-15] MEDS: DUONEB 0.5 MG/3 MG (3 mL) NEB SCH ×4 (08:36→20:05)
[2022-12-15] MEDS: DIFLUCAN 100 MG IV (MIX by PHARMACY)* 100 MG/50 ML BAG IV SCH (08:47)
[2022-12-15] MEDS: LOVENOX INJ 30 MG SYR SC SCH (08:47)
[2022-12-15] MEDS: VSL#3 PO SCH (08:48)
[2022-12-15] MEDS: NORVASC TAB 10 MG PO SCH (08:48)
[2022-12-15] MEDS: CELEXA PO SCH (08:48)
[2022-12-15] MEDS: TOPROL XL PO SCH ×2 (08:48→20:16)
[2022-12-15] MEDS: PEPCID TAB 20 MG PO SCH (08:48)
[2022-12-15] MEDS: PriLOSEC PO SCH ×2 (08:49→20:16)
[2022-12-15] MEDS: AMARYL TAB 4 MG PO SCH ×2 (08:49→20:17)
[2022-12-15] MEDS: COLACE CAP 100 MG PO SCH (08:49)
[2022-12-15] MEDS: NEURONTIN CAP 300 MG PO SCH ×2 (08:49→20:17)
[2022-12-15] MEDS: VITAMIN D3 25 mcg (1,000 UNITS) PO SCH (08:53)
--- NOTE | 2022-12-15 11:30 | PCM.PROG ---
Progress Note - Progress Note for Day of Date of Exam: 12/14/22 - Subjective Subjective: IS CURRENTLY INPATIENT STATUS FOR TREATMENT OF PNEUMONIA, E.COLI UTI, RSV, AMS, GENERALIZED WEAKNESS, AND ELEVATED D-DIMER. SHE CONTINUES TO COMPLAIN OF A NON-PRODUCTIVE COUGH, SHORTNESS OF BREATH, AND GENERALIZED WEAKNESS. SHE REPORTS SLIGHT IMPROVEMENT IN SYMPTOMS SINCE ADMISSION. STAFF REPORTS THAT SHE HAS AMBULATED IN ROOM WITH ASSISTANCE. HER PMH INCLUDES: CAD, HTN, DYSLIPIDEMIA, DM II, HYPOTHYROIDISM, ANEMIA, GERD, ARTHRITIS, KIDNEY STONES, SLEEP APNEA, CHF, HYSTERECTOMY, MASTECTOMY, BOWEL RESECTION, AND CARDIAC STENTS. ON EXAMINATION TODAY, HEART IS REGULAR IN RATE AND RHYTHM. BILATERAL LUNGS ARE NOTED WITH DIMINISHED LUNG SOUNDS THROUGHOUT. ABDOMEN IS ROUND, SOFT, AND NON-TENDER WITH NORMAL BOWEL SOUNDS NOTED IN ALL QUADRANTS. NO UPPER OR LOWER EXTREMITY EDEMA NOTED. THERE IS ERYTHEMA NOTED TO THE RIGHT UPPER ARM. PATIENT REPORTS THAT REDNESS STARTED AFTER A BLOOD DRAW. HER VITALS THIS MORNING WERE 98.7-60-23-97%-143/68. SHE IS CURRENTLY UTILIZING OXYGEN VIA NASAL CANNULA AT 2 LPM. LABS WERE OBTAINED. WBC 10.9, RBC 4.02, HGB 12.2, HCT 36.5, PLT COUNT 220, SODIUM 138, POTASSIUM 3.9, CHLORIDE 106, BUN 14, CREATININE 1.22, GLUCOSE 159, CALCIUM 8.4, AST 25, ALT <6, ALK PHOS 59, TOTAL PROTEIN 5.9, ALBUMIN 2.1. URINE CULTURE POSITIVE FOR GROWTH OF E.COLI. AIT RESPIRATORY PANEL IS ALSO POSITIVE FOR GROWTH OF E.COLI WELL JAYLON ALBICANS. A CHEST XRAY WAS OBTAINED AND REVEALED: Right chest wall [id number] and left chest pacemaker appear stable. Heart is stable in size. Mild interval improvement and peripheral airspace opacities with mild residuals. No pneumothorax, pleural effusion, focal consolidation. No acute osseous abnormality. SHE IS CURRENTLY RECEIVING ZOSYN 4.5G IV TID, DIFLUCAN 100MG IV DAILY, PROBIOTICS DAILY, DUONEBS QID, PULMICORT NEBS BID, ROBITUSSIN DM 10ML QID, LOVENOX 30MG SC DAILY, OTBS ACHS, HUMULIN R SLIDING SCALE, THE POTASSIUM AND MAGNESIUM PROTOCOLS. HER HOME MEDICATIONS OF ZANAFLEX, MIRAPEX, PRILOSEC, TOPROL, AMARYL, NEURONTIN, COLACE, CELEXA, VITAMIN D3, SINEMET, LIPITOR, ECOTRIN, AMLODIPINE WERE RESUMED. WE WILL CONTINUE WITH CURRENT PLAN OF CARE. OTHERWISE, WE WILL FOLLOW-UP WITH AM LABS AND CHEST XRAY AND CONTINUE TO MONITOR. TIME SPENT ON CLINICAL ASSESSMENT, REVIWING LABS AND IMAGING, DECISION MAKING, AND DOCUMENTATION GREATER THAN 45 MINUTES. - Past Medical Family Social History Past Med/Fam/Surg Hx: No changes since H&P Allergies: Allergies adhesive tape Allergy (Unknown, Verified 05/03/19 15:13) latex Allergy (Unknown, Verified 08/07/22 10:06) sulfamethoxazole [From Bactrim] Adverse Reaction (Unknown, Verified 08/07/22 10:06) trimethoprim [From Bactrim] Adverse Reaction (Unknown, Verified 08/07/22 10:06) ADHESIVE TAPE Allergy (Unknown, Uncoded 08/07/22 10:06) - Review of Systems ROS: No change since H&P - Vital Signs and I&O's Vital Signs: Temperature 98.4 F Pulse Rate 69 Respiratory Rate 25 Blood Pressure [Left Arm] 128/75 Blood Pressure 92/60 O2 Sat by Pulse Oximetry 95 Intake and Output: Intake & Output 12/12/22 12/13/22 12/14/22 12/15/22 11:59 11:59 11:59 11:59 Intake Total 1428 / 1428 2140 / 2140 1123 / 1123 1145 / 1145 Output Total 825 / 825 870 / 870 1950 / 1950 2525 / 2525 Balance 603 / 603 1270 / 1270 -827 / -827 -1380 / -1380 - Physical Exam Oriented: Normal Eyes: Normal Ear: Normal Nose: Normal Throat: Normal Respiratory: Generalized, Wheezes Cardiovascular: Normal : Normal Auscultation: Bowel Sounds: Normal Tenderness: Normal Skin: Normal Musculoskeletal: Normal Psychiatric: Normal Mood Description: Flat Affect: Flat Speech Pattern: Appropriate - Laboratory and Diagnostics Result Diagrams: 12/15/22 04:25 12/15/22 04:25 Labs: 12/08/22 16:48 Blood Blood Culture - Final 12/08/22 16:18 Blood Blood Culture - Final 12/08/22 14:27 Urine,Catheterized Urine Culture - Final Escherichia Coli Laboratory WBC 10.8 X10^3/uL (3.6-10.0) H 12/15/22 04:25 RBC 4.01 X10^6/uL (3.5-5.4) 12/15/22 04:25 Hgb 12.1 g/dL (12.0-16.0) 12/15/22 04:25 Hct 35.9 % (36.0-47.0) L 12/15/22 04:25 MCV 89.4 fL (80.0-100.0) 12/15/22 04:25 MCH 30.1 pg (27.0-34.0) 12/15/22 04:25 MCHC 33.6 g/dL (33.0-35.0) 12/15/22 04:25 RDW 13.5 % (11.6-16.5) 12/15/22 04:25 Plt Count 206 X10^3/uL (150.0-450.0) 12/15/22 04:25 Plt Count Comment Adequate (ADEQUATE) 12/15/22 04:25 MPV 8.1 fL (7.4-11.0) 12/15/22 04:25 Neut % (Auto) 79.7 % (42.0-75.0) H 12/15/22 04:25 Lymph % (Auto) 11.8 % (21.0-51.0) L 12/15/22 04:25 [place] % (Auto) 6.6 % (0.0-13.0) 12/15/22 04:25 Eos % (Auto) 1.4 % (0.9-2.9) 12/15/22 04:25 Baso % (Auto) 0.5 % (0.2-1.0) 12/15/22 04:25 Neut # (Auto) 8.6 x10^3/uL (2.2-4.8) H 12/15/22 04:25 Lymph # (Auto) 1.3 X10^3/uL (1.3-2.9) 12/15/22 04:25 [place] # (Auto) 0.7 x10^3/uL (0.3-0.8) 12/15/22 04:25 Eos # (Auto) 0.2 x10^3/uL (0.0-0.2) 12/15/22 04:25 Baso # (Auto) 0.1 X10^3/uL (0.0-0.1) 12/15/22 04:25 Absolute Nucleated RBC 0.0 /100WBC 12/15/22 04:25 Total Counted 100 12/15/22 04:25 Neutrophils % (Manual) 72 % (39-76) 12/15/22 04:25 Band Neutrophils % 3 % (0-10) 12/15/22 04:25 Lymphocytes % (Manual) 15 % (13-43) 12/15/22 04:25 Monocytes % (Manual) 9 % (4-9) 12/15/22 04:25 Eosinophils % (Manual) 1 % (0-6) 12/15/22 04:25 Metamyelocytes % 1 12/14/22 04:05 Plt Clumps, EDTA Rare 12/12/22 04:15 Plt Morphology Comment Normal (NORMAL) 12/15/22 04:25 RBC Morphology Normal (NORMAL) 12/15/22 04:25 PT 14.9 SECONDS (11.8-14.3) 12/08/22 15:03 INR Target Range - 12/08/22 15:03 INR 1.20 (0.8-1.3) 12/08/22 15:03 APTT 28.4 SECONDS (22.9-36.5) 12/08/22 15:03 PTT Comment - 12/08/22 15:03 D-Dimer 3.15 ug/ml (0.0-0.57) H 12/08/22 15:03 Sodium 135 mmol/L (136-145) L 12/15/22 04:25 Corrected Sodium TNP 12/15/22 04:25 Potassium 3.6 mmol/L (3.5-5.1) 12/15/22 04:25 Chloride 104 mmol/L (98-107) 12/15/22 04:25 Carbon Dioxide 26.5 mmol/L (21-32) 12/15/22 04:25 BUN 12 mg/dL (7-18) 12/15/22 04:25 Creatinine 1.15 mg/dL (0.55-1.02) H 12/15/22 04:25 Est GFR (MDRD) Af Amer 57 (>60) L 12/15/22 04:25 Est GFR (MDRD) Non-Af 47 (>60) L 12/15/22 04:25 Glucose 94 mg/dL (65-99) 12/15/22 04:25 POC Glucose (mg/dL) 91 mg/dL (65-99) 12/15/22 05:23 Lactic Acid 1.9 mmol/L (0.4-2.0) 12/09/22 04:40 Calcium 8.2 mg/dL (8.5-10.1) L 12/15/22 04:25 Corrected Calcium 9.7 mg/dL (8.5-10.1) 12/15/22 04:25 Phosphorus 3.9 mg/dL (2.6-4.7) 12/08/22 14:34 Magnesium 2.1 mg/dL (2.0-2.9) 12/10/22 04:43 Total Bilirubin 0.40 mg/dL (0.2-1.0) 12/15/22 04:25 AST 21 Units/L (15-37) 12/15/22 04:25 ALT < 6 Units/L (12-78) L 12/15/22 04:25 Alkaline Phosphatase 56 Units/L (46-116) 12/15/22 04:25 Creatine Kinase 28 Units/L (26-192) 12/09/22 04:40 Troponin I High Sens 15.2 ng/L (4.0-60.0) 12/09/22 04:40 B-Natriuretic Peptide 156 pg/mL (0-79) H 12/08/22 14:34 Total Protein 5.7 g/dL (6.4-8.2) L 12/15/22 04:25 Albumin 2.1 g/dL (3.4-5.0) L 12/15/22 04:25 Globulin 3.6 g/dL (2.5-4.5) 12/15/22 04:25 Albumin/Globulin Ratio 0.6 Ratio (1.1-2.1) L 12/15/22 04:25 Amylase 38 Units/L (25-115) 12/08/22 14:34 Lipase 64 Units/L (73-393) L 12/08/22 14:34 Cortisol 20.4 ug/dL 12/08/22 14:34 Specimen Type Catherized urine 12/08/22 14:27 Urine Color Yellow (YELLOW) 12/08/22 14:27 Urine Appearance Slightly hazy (CLEAR) 12/08/22 14:27 Urine pH 5.0 (5.0 - 8.0) 12/08/22 14:27 Ur Specific [place] 1.015 (1.000-1.030) 12/08/22 14:27 Urine Protein 1+ (NEGATIVE) 12/08/22 14:27 Urine Glucose (UA) Negative (NEGATIVE) 12/08/22 14:27 Urine Ketones Negative (NEGATIVE) 12/08/22 14:27 Urine Blood 1+ (NEGATIVE) 12/08/22 14:27 Urine Nitrite Negative (NEGATIVE) 12/08/22 14:27 Urine Bilirubin Negative (NEGATIVE) 12/08/22 14:27 Urine Urobilinogen Normal (NORMAL) 12/08/22 14:27 Ur Leukocyte Esterase 2+ (NEGATIVE) 12/08/22 14:27 Urine RBC 3-5 /HPF (0-3) A 12/08/22 14:27 Urine WBC 5-10 /HPF (0-5) A 12/08/22 14:27 Ur Squamous Epith Cells Negative /HPF (NEGATIVE) 12/08/22 14:27 Urine Bacteria 3+ /HPF (NEGATIVE) 12/08/22 14:27 Hyaline Casts Rare /LPF (NEGATIVE) 12/08/22 14:27 Ur Culture Indicated? Yes/culture set up 12/08/22 14:27 SARS-CoV-2 (PCR) Negative (NEGATIVE) 12/08/22 14:52 Influenza Type A (PCR) Negative (NEGATIVE) 12/08/22 14:52 Influenza Type B (PCR) Negative (NEGATIVE) 12/08/22 14:52 RSV (PCR) Positive (NEGATIVE) A 12/08/22 14:52 Resp Viral Panel (PCR) See scanned report 12/08/22 18:34 - Plan (1) Pneumonia Status: Acute Qualifiers: Pneumonia type: due to Escherichia coli Laterality: right Lung location: unspecified part of lung Qualified Code(s): J15.5 - Pneumonia due to Escherichia coli Plan: SUPPLEMENTAL OXGYEN, ZOSYN 4.5G IV TID, DIFLUCAN 100MG IV DAILY, PROBIOTICS DAILY, DUONEBS QID, PULMICORT NEBS BID, ROBITUSSIN DM 10ML QID, LOVENOX 30MG SC DAILY, OTBS ACHS, HUMULIN R SLIDING SCALE, THE POTASSIUM AND MAGNESIUM PROTOCOLS. HER HOME MEDICATIONS OF ZANAFLEX, MIRAPEX, PRILOSEC, TOPROL, AMARYL, NEURONTIN, COLACE, CELEXA, VITAMIN D3, SINEMET, LIPITOR, ECOTRIN, AMLODIPINE WERE RESUMED. (2) Jaylon albicans infection Status: Acute (3) RSV (acute bronchiolitis due to respiratory syncytial virus) Status: Acute (4) UTI (urinary tract infection) Status: Acute Qualifiers: Urinary tract infection type: acute cystitis Hematuria presence: without hematuria Qualified Code(s): N30.00 - Acute cystitis without hematuria (5) AMS (altered mental status) Status: Acute Qualifiers: Altered mental status type: transient alteration of awareness Qualified Code(s): R40.4 - Transient alteration of awareness (6) Generalized weakness Status: Acute (7) D-dimer, elevated Status: Acute (8) Chronic kidney disease (CKD) Status: Chronic Qualifiers: Chronic kidney disease stage: stage 3 (moderate) Chronic kidney disease stage 3 subtype: stage 3b (GFR 30-44) Qualified Code(s): N18.32 - Chronic kidney disease, stage 3b (9) Diabetes mellitus, type II Status: Chronic Qualifiers: Diabetes mellitus 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9 - Gastro-esophageal reflux disease without esophagitis (11) HTN (hypertension) Status: Chronic Qualifiers: Hypertension type: primary hypertension Qualified Code(s): I10 - Essential (primary) hypertension (12) Hyperlipidemia Status: Chronic Qualifiers: Hyperlipidemia type: mixed hyperlipidemia Qualified Code(s): E78.2 - Mixed hyperlipidemia
[2022-12-15] MEDS: NovoLIN R (or HumuLIN R) SUBCUT PRN ×2 (11:54→17:33)
--- NOTE | 2022-12-15 12:47 | PCM.PROG ---
Progress Note - Progress Note for Day of Date of Exam: 12/15/22 - Subjective Subjective: IS CURRENTLY INPATIENT STATUS FOR TREATMENT OF PNEUMONIA, E.COLI UTI, RSV, AMS, GENERALIZED WEAKNESS, AND ELEVATED D-DIMER. SHE CONTINUES TO COMPLAIN OF A INTERMITTENT, NON-PRODUCTIVE COUGH, SHORTNESS OF BREATH, AND GENERALIZED WEAKNESS. SHE REPORTS SLIGHT IMPROVEMENT IN SYMPTOMS SINCE ADMISSION. SHE ALSO COMPLAINS OF SOME SWELLING AND REDNESS TO THE RIGHT UPPER ARM FOR THE PAST FEW DAYS. STAFF REPORTS THAT SHE HAS AMBULATED IN ROOM WITH ASSISTANCE. HER PMH INCLUDES: CAD, HTN, DYSLIPIDEMIA, DM II, HYPOTHYROIDISM, ANEMIA, GERD, ARTHRITIS, KIDNEY STONES, SLEEP APNEA, CHF, HYSTERECTOMY, MASTECTOMY, BOWEL RESECTION, AND CARDIAC STENTS. ON EXAMINATION TODAY, HEART IS REGULAR IN RATE AND RHYTHM. BILATERAL LUNGS ARE NOTED WITH DIMINISHED LUNG SOUNDS THROUGHOUT. ABDOMEN IS ROUND, SOFT, AND NON-TENDER WITH NORMAL BOWEL SOUNDS NOTED IN ALL QUADRANTS. NO UPPER OR LOWER EXTREMITY EDEMA NOTED. THERE IS ERYTHEMA AND NON-PITTING EDEMA NOTED TO THE RIGHT UPPER ARM. PATIENT REPORTS TH AT REDNESS STARTED AFTER A BLOOD DRAW A FEW DAYS AGO. HER VITALS THIS MORNING WERE 98.4-79-24-95%-122/72. SHE IS CURRENTLY UTILIZING OXYGEN VIA NASAL CANNULA AT 2 LPM. LABS WERE OBTAINED. WBC 10.8, RBC 4.01, HGB 12.1, HCT 35.9, PLT COUNT 206, SODIUM 135, POTASSIUM 3.6, CHLORIDE 104, CARBON DIOXIDE 26.5, BUN 12, CREATININE 1.15, GLUCOSE 94, CALCIUM 8.2, TOTAL BILI 0.40, AST 21, ALT <6, ALK PHOS 56, TOTAL PROTEIN 5.7, ALBUMIN 2.1. URINE CULTURE POSITIVE FOR GROWTH OF E.COLI. AIT RESPIRATORY PANEL IS ALSO POSITIVE FOR GROWTH OF E.COLI WELL JAYLON ALBICANS. SHE IS CURRENTLY RECEIVING ZOSYN 4.5G IV TID, DIFLUCAN 100MG IV DAILY, PROBIOTICS DAILY, DUONEBS QID, PULMICORT NEBS BID, ROBITUSSIN DM 10ML QID, LOVENOX 30MG SC DAILY, OTBS ACHS, HUMULIN R SLIDING SCALE, THE POTASSIUM AND MAGNESIUM PROTOCOLS. HER HOME MEDICATIONS OF ZANAFLEX, MIRAPEX, PRILOSEC, TOPROL, AMARYL, NEURONTIN, COLACE, CELEXA, VITAMIN D3, SINEMET, LIPITOR, ECOTRIN, AMLODIPINE WERE RESUMED. WE WILL CONTINUE WITH CURRENT PLAN OF CARE. WE WILL ORDER FOR ICE PACKS TO BE APPLIED TO RIGHT ARM THROUGHOUT THE DAY DUE TO SWELLING. OTHERWISE, WE WILL FOLLOW-UP WITH AM LABS AND CHEST XRAY AND CONTINUE TO MONITOR. TIME SPENT ON CLINICAL ASSESSMENT, REVIWING LABS AND IMAGING, DECISION MAKING, AND DOCUMENTATION GREATER THAN 45 MINUTES. - Past Medical Family Social History Past Med/Fam/Surg Hx: No changes since H&P Allergies: Allergies adhesive tape Allergy (Unknown, Verified 05/03/19 15:13) latex Allergy (Unknown, Verified 08/07/22 10:06) sulfamethoxazole [From Bactrim] Adverse Reaction (Unknown, Verified 08/07/22 10:06) trimethoprim [From Bactrim] Adverse Reaction (Unknown, Verified 08/07/22 10:06) ADHESIVE TAPE Allergy (Unknown, Uncoded 08/07/22 10:06) - Review of Systems ROS: No change since H&P - Vital Signs and I&O's Vital Signs: Temperature 97.6 F Pulse Rate 71 Respiratory Rate 27 Blood Pressure [Left Arm] 128/75 Blood Pressure 112/66 O2 Sat by Pulse Oximetry 88 Intake and Output: Intake & Output 12/13/22 12/14/22 12/15/22 12/16/22 11:59 11:59 11:59 11:59 Intake Total 2140 / 2140 1123 / 1123 1145 / 1145 Output Total 870 / 870 1950 / 1950 2525 / 2525 Balance 1270 / 1270 -827 / -827 -1380 / -1380 - Physical Exam Oriented: Normal Eyes: Normal Ear: Normal Nose: Normal Throat: Normal Respiratory: Generalized, Wheezes Cardiovascular: Normal : Normal Auscultation: Bowel Sounds: Normal Palpation: Normal Tenderness: Normal Skin: Normal Musculoskeletal: Normal Psychiatric: Normal Mood Description: Flat Affect: Flat Speech Pattern: Appropriate - Laboratory and Diagnostics Result Diagrams: 12/15/22 04:25 12/15/22 04:25 Labs: 12/08/22 16:48 Blood Blood Culture - Final 12/08/22 16:18 Blood Blood Culture - Final 12/08/22 14:27 Urine,Catheterized Urine Culture - Final Escherichia Coli Laboratory WBC 10.8 X10^3/uL (3.6-10.0) H 12/15/22 04:25 RBC 4.01 X10^6/uL (3.5-5.4) 12/15/22 04:25 Hgb 12.1 g/dL (12.0-16.0) 12/15/22 04:25 Hct 35.9 % (36.0-47.0) L 12/15/22 04:25 MCV 89.4 fL (80.0-100.0) 12/15/22 04:25 MCH 30.1 pg (27.0-34.0) 12/15/22 04:25 MCHC 33.6 g/dL (33.0-35.0) 12/15/22 04:25 RDW 13.5 % (11.6-16.5) 12/15/22 04:25 Plt Count 206 X10^3/uL (150.0-450.0) 12/15/22 04:25 Plt Count Comment Adequate (ADEQUATE) 12/15/22 04:25 MPV 8.1 fL (7.4-11.0) 12/15/22 04:25 Neut % (Auto) 79.7 % (42.0-75.0) H 12/15/22 04:25 Lymph % (Auto) 11.8 % (21.0-51.0) L 12/15/22 04:25 [place] % (Auto) 6.6 % (0.0-13.0) 12/15/22 04:25 Eos % (Auto) 1.4 % (0.9-2.9) 12/15/22 04:25 Baso % (Auto) 0.5 % (0.2-1.0) 12/15/22 04:25 Neut # (Auto) 8.6 x10^3/uL (2.2-4.8) H 12/15/22 04:25 Lymph # (Auto) 1.3 X10^3/uL (1.3-2.9) 12/15/22 04:25 [place] # (Auto) 0.7 x10^3/uL (0.3-0.8) 12/15/22 04:25 Eos # (Auto) 0.2 x10^3/uL (0.0-0.2) 12/15/22 04:25 Baso # (Auto) 0.1 X10^3/uL (0.0-0.1) 12/15/22 04:25 Absolute Nucleated RBC 0.0 /100WBC 12/15/22 04:25 Total Counted 100 12/15/22 04:25 Neutrophils % (Manual) 72 % (39-76) 12/15/22 04:25 Band Neutrophils % 3 % (0-10) 12/15/22 04:25 Lymphocytes % (Manual) 15 % (13-43) 12/15/22 04:25 Monocytes % (Manual) 9 % (4-9) 12/15/22 04:25 Eosinophils % (Manual) 1 % (0-6) 12/15/22 04:25 Metamyelocytes % 1 12/14/22 04:05 Plt Clumps, EDTA Rare 12/12/22 04:15 Plt Morphology Comment Normal (NORMAL) 12/15/22 04:25 RBC Morphology Normal (NORMAL) 12/15/22 04:25 PT 14.9 SECONDS (11.8-14.3) 12/08/22 15:03 INR Target Range - 12/08/22 15:03 INR 1.20 (0.8-1.3) 12/08/22 15:03 APTT 28.4 SECONDS (22.9-36.5) 12/08/22 15:03 PTT Comment - 12/08/22 15:03 D-Dimer 3.15 ug/ml (0.0-0.57) H 12/08/22 15:03 Sodium 135 mmol/L (136-145) L 12/15/22 04:25 Corrected Sodium TNP 12/15/22 04:25 Potassium 3.6 mmol/L (3.5-5.1) 12/15/22 04:25 Chloride 104 mmol/L (98-107) 12/15/22 04:25 Carbon Dioxide 26.5 mmol/L (21-32) 12/15/22 04:25 BUN 12 mg/dL (7-18) 12/15/22 04:25 Creatinine 1.15 mg/dL (0.55-1.02) H 12/15/22 04:25 Est GFR (MDRD) Af Amer 57 (>60) L 12/15/22 04:25 Est GFR (MDRD) Non-Af 47 (>60) L 12/15/22 04:25 Glucose 94 mg/dL (65-99) 12/15/22 04:25 POC Glucose (mg/dL) 161 mg/dL (65-99) H 12/15/22 11:38 Lactic Acid 1.9 mmol/L (0.4-2.0) 12/09/22 04:40 Calcium 8.2 mg/dL (8.5-10.1) L 12/15/22 04:25 Corrected Calcium 9.7 mg/dL (8.5-10.1) 12/15/22 04:25 Phosphorus 3.9 mg/dL (2.6-4.7) 12/08/22 14:34 Magnesium 2.1 mg/dL (2.0-2.9) 12/10/22 04:43 Total Bilirubin 0.40 mg/dL (0.2-1.0) 12/15/22 04:25 AST 21 Units/L (15-37) 12/15/22 04:25 ALT < 6 Units/L (12-78) L 12/15/22 04:25 Alkaline Phosphatase 56 Units/L (46-116) 12/15/22 04:25 Creatine Kinase 28 Units/L (26-192) 12/09/22 04:40 Troponin I High Sens 15.2 ng/L (4.0-60.0) 12/09/22 04:40 B-Natriuretic Peptide 156 pg/mL (0-79) H 12/08/22 14:34 Total Protein 5.7 g/dL (6.4-8.2) L 12/15/22 04:25 Albumin 2.1 g/dL (3.4-5.0) L 12/15/22 04:25 Globulin 3.6 g/dL (2.5-4.5) 12/15/22 04:25 Albumin/Globulin Ratio 0.6 Ratio (1.1-2.1) L 12/15/22 04:25 Amylase 38 Units/L (25-115) 12/08/22 14:34 Lipase 64 Units/L (73-393) L 12/08/22 14:34 Cortisol 20.4 ug/dL 12/08/22 14:34 Specimen Type Catherized urine 12/08/22 14:27 Urine Color Yellow (YELLOW) 12/08/22 14:27 Urine Appearance Slightly hazy (CLEAR) 12/08/22 14:27 Urine pH 5.0 (5.0 - 8.0) 12/08/22 14:27 Ur Specific [place] 1.015 (1.000-1.030) 12/08/22 14:27 Urine Protein 1+ (NEGATIVE) 12/08/22 14:27 Urine Glucose (UA) Negative (NEGATIVE) 12/08/22 14:27 Urine Ketones Negative (NEGATIVE) 12/08/22 14:27 Urine Blood 1+ (NEGATIVE) 12/08/22 14:27 Urine Nitrite Negative (NEGATIVE) 12/08/22 14:27 Urine Bilirubin Negative (NEGATIVE) 12/08/22 14:27 Urine Urobilinogen Normal (NORMAL) 12/08/22 14:27 Ur Leukocyte Esterase 2+ (NEGATIVE) 12/08/22 14:27 Urine RBC 3-5 /HPF (0-3) A 12/08/22 14:27 Urine WBC 5-10 /HPF (0-5) A 12/08/22 14:27 Ur Squamous Epith Cells Negative /HPF (NEGATIVE) 12/08/22 14:27 Urine Bacteria 3+ /HPF (NEGATIVE) 12/08/22 14:27 Hyaline Casts Rare /LPF (NEGATIVE) 12/08/22 14:27 Ur Culture Indicated? Yes/culture set up 12/08/22 14:27 SARS-CoV-2 (PCR) Negative (NEGATIVE) 12/08/22 14:52 Influenza Type A (PCR) Negative (NEGATIVE) 12/08/22 14:52 Influenza Type B (PCR) Negative (NEGATIVE) 12/08/22 14:52 RSV (PCR) Positive (NEGATIVE) A 12/08/22 14:52 Resp Viral Panel (PCR) See scanned report 12/08/22 18:34 - Plan (1) Pneumonia Status: Acute Qualifiers: Pneumonia type: due to Escherichia coli Laterality: right Lung location: unspecified part of lung Qualified Code(s): J15.5 - Pneumonia due to Escherichia coli Plan: SUPPLEMENTAL OXGYEN, ZOSYN 4.5G IV TID, DIFLUCAN 100MG IV DAILY, PROBIOTICS DAILY, DUONEBS QID, PULMICORT NEBS BID, ROBITUSSIN DM 10ML QID, LOVEN OX 30MG SC DAILY, OTBS ACHS, HUMULIN R SLIDING SCALE, THE POTASSIUM AND MAGNESIUM PROTOCOLS. HER HOME MEDICATIONS OF ZANAFLEX, MIRAPEX, PRILOSEC, TOPROL, AMARYL, NEURONTIN, COLACE, CELEXA, VITAMIN D3, SINEMET, LIPITOR, ECOTRIN, AMLODIPINE WERE RESUMED. (2) Jaylon albicans infection Status: Acute (3) RSV (acute bronchiolitis due to respiratory syncytial virus) Status: Acute (4) UTI (urinary tract infection) Status: Acute Qualifiers: Urinary tract infection type: acute cystitis Hematuria presence: without hematuria Qualified Code(s): N30.00 - Acute cystitis without hematuria (5) AMS (altered mental status) Status: Acute Qualifiers: Altered mental status type: transient alteration of awareness Qualified Code(s): R40.4 - Transient alteration of awareness (6) Generalized weakness Status: Acute (7) D-dimer, elevated Status: Acute (8) Chronic kidney disease (CKD) Status: Chronic Qualifiers: Chronic kidney disease stage: stage 3 (moderate) Chronic kidney disease stage 3 subtype: stage 3b (GFR 30-44) Qualified Code(s): N18.32 - Chronic kidney disease, stage 3b (9) Diabetes mellitus, type II Status: Chronic Qualifiers: Diabetes mellitus longterm insulin use: without intermodal customer service use Diabetes mellitus complication status: with kidney complications Diabetes mellitus complication detail: with chronic kidney disease Chronic kidney disease stage: stage 3 (moderate) Chronic kidney disease stage 3 subtype: stage 3b (GFR 30- 44) Qualified Code(s): E11.22 - Type 2 diabetes mellitus with diabetic chronic kidney disease; N18.32 - Chronic kidney disease, stage 3b (10) GERD (gastroesophageal reflux disease) Status: Chronic Qualifiers: Esophagitis presence: esophagitis presence not specified Qualified Code(s): K21.9 - Gastro-esophageal reflux disease without esophagitis (11) HTN (hypertension) Status: Chronic Qualifiers: Hypertension type: primary hypertension Qualified Code(s): I10 - Essential (primary) hypertension (12) Hyperlipidemia Status: Chronic Qualifiers: Hyperlipidemia type: mixed hyperlipidemia Qualified Code(s): E78.2 - Mixed hyperlipidemia
--- NOTE | 2022-12-15 14:58 | RAD ---
HISTORYAMS, RSV, SOBSTUDYCHEST, 1 VIEWCOMPARISONFebruary 2022.TECHNIQUEA single frontal view of the chest was obtained.FINDINGSThere is a MediPort catheter overlying the right chest wall with its distal tip overlying thesuperior vena cava. There is a permanent pacemaker overlying the left chest wall with its proximal lead in the right atrium and distal lead in the right ventricle. There are multiple EKG leads and wires seen overlying the patient. There is moderate cardiomegaly with left ventricular hypertrophy. There is a focal infiltrate of the periphery of the right midlung zone. A left retrocardiac infiltrate is also suspected.. There is no effusion. There is no pneumothorax. The osseous structures are intact.IMPRESSIONPermanent pacemaker and MediPort catheter in situLeft retrocardiac and right midlung zone alveolar infiltrates. This has progressed in comparison with the previous study.Electronically signed by: Yeny Browne (Dec 15, 2022 14:57:41)
[2022-12-15] MEDS ORDERED: MILK OF MAGNESIA PO PRN (19:08)
[2022-12-15] MEDS: SNACK - Diabetic Appropriate PO SCH (19:11)
[2022-12-15] MEDS: RESTORIL CAP 15 MG PO PRN (20:16)
[2022-12-15] MEDS: ASPIRIN EC 81 MG PO SCH (20:16)
[2022-12-15] MEDS: ZANAFLEX PO SCH (20:16)
[2022-12-15] MEDS: TESSALON PERLES PO PRN (20:16)
[2022-12-15] MEDS: LIPITOR TAB 10 MG PO SCH (20:16)
[2022-12-16 04:56] LABS: BASOPHILS % (AUTO) 0.2 % (0.2-1.0); EOSINOPHILS # (AUTO) 0.1 x10^3/uL (0.0-0.2); EOSINOPHILS % (AUTO) 0.9 % (0.9-2.9); HEMATOCRIT 37.1 % (36.0-47.0); HEMOGLOBIN 12.3 g/dL (12.0-16.0); LYMPHOCYTES # (AUTO) 0.8 X10^3/uL (1.3-2.9); LYMPHOCYTES % (AUTO) 7.8 % (21.0-51.0); MEAN CORPUSCULAR HEMOGLOBIN 29.7 pg (27.0-34.0); MEAN CORPUSCULAR HGB CONC 33.2 g/dL (33.0-35.0); MEAN CORPUSCULAR VOLUME 89.5 fL (80.0-100.0); MEAN PLATELET VOLUME 8.5 fL (7.4-11.0); MONOCYTES # (AUTO) 0.6 x10^3/uL (0.3-0.8); MONOCYTES % (AUTO) 5.9 % (0.0-13.0); NEUTROPHILS # (AUTO) 8.8 x10^3/uL (2.2-4.8); NEUTROPHILS % (AUTO) 85.2 % (42.0-75.0); RED BLOOD COUNT 4.14 X10^6/uL (3.5-5.4); WHITE BLOOD COUNT 10.3 X10^3/uL (3.6-10.0)
[2022-12-16 05:08] LABS: ALANINE AMINOTRANSFERASE < 6 Units/L (12-78); ALBUMIN 2.1 g/dL (3.4-5.0); ALKALINE PHOSPHATASE 55 Units/L (46-116); ASPARTATE AMINO TRANSFERASE 20 Units/L (15-37); BLOOD UREA NITROGEN 13 mg/dL (7-18); CALCIUM 8.2 mg/dL (8.5-10.1); CARBON DIOXIDE 27.7 mmol/L (21-32); CHLORIDE 104 mmol/L (98-107); COR CA(FOR HYPOALB) 9.7 mg/dL (8.5-10.1); COR NA(FOR HYPERGLY) 138 mmol/L (136-145); CREATININE 1.26 mg/dL (0.55-1.02); SODIUM 137 mmol/L (136-145); TOTAL PROTEIN 5.7 g/dL (6.4-8.2); eGFR NON BLACK RACES 42 (>60)
[2022-12-16] MEDS: ZOSYN VIAL 3.375 GRAMS 3.375 G in NS 100 ML IV 100 ML IV SCH (05:35)
[2022-12-16] MEDS: MIRAPEX TAB 1 MG PO SCH (05:35)
[2022-12-16] MEDS: TESSALON PERLES PO PRN (05:35)
[2022-12-16] MEDS: SINEMET (PLAIN) 25/250 MG PO SCH (05:35)
[2022-12-16] MEDS: PriLOSEC PO SCH (08:19)
[2022-12-16] MEDS: AMARYL TAB 4 MG PO SCH (08:19)
[2022-12-16] MEDS: CELEXA PO SCH (08:20)
[2022-12-16] MEDS: TOPROL XL PO SCH (08:20)
[2022-12-16] MEDS: VSL#3 PO SCH (08:20)
[2022-12-16] MEDS: PEPCID TAB 20 MG PO SCH (08:20)
[2022-12-16] MEDS: DIFLUCAN 100 MG IV (MIX by PHARMACY)* 100 MG/50 ML BAG IV SCH (08:21)
[2022-12-16] MEDS: LOVENOX INJ 30 MG SYR SC SCH (08:21)
[2022-12-16] MEDS: VITAMIN D3 25 mcg (1,000 UNITS) PO SCH (08:21)
[2022-12-16] MEDS: COLACE CAP 100 MG PO SCH (08:23)
[2022-12-16] MEDS: NEURONTIN CAP 300 MG PO SCH (08:23)
[2022-12-16] MEDS: NORVASC TAB 10 MG PO SCH (08:23)
[2022-12-16] MEDS: PULMICORT NEB TX 0.5 MG NEB SCH (08:58)
[2022-12-16] MEDS: DUONEB 0.5 MG/3 MG (3 mL) NEB SCH (08:58)
[2022-12-16 11:16] VITALS: BP 114/60
--- NOTE | 2022-12-16 13:01 | RAD ---
HISTORY:AMS, shortness of breathStudy: Single view chestComparison:12/15/2022Findings:Multiple overlying wires limits evaluation. Stable right subclavian CVL and dual-chamber pacemaker. Stable bilateral lung opacities. No pneumothorax.IMPRESSION:Stable chest.Electronically signed by: CRICKET PARIKH (Dec 16, 2022 13:00:50)
== END 2022-12-16 11:15 | disposition hospice, home (50) | DRG 178 ==
LOC: ER 13:57 → ICU 17:01
PROVIDERS: ADMIT Internal Medicine; ATTEND Internal Medicine
DX: I25.10 Atherosclerotic heart disease of native coronary artery without angina pectoris; B97.4 Respiratory syncytial virus as the cause of diseases classified elsewhere; R53.1 Weakness; N18.32 Chronic kidney disease, stage 3b; I10 Essential (primary) hypertension; E11.22 Type 2 diabetes mellitus with diabetic chronic kidney disease; B37.89 Other sites of candidiasis; K21.9 Gastro-esophageal reflux disease without esophagitis; R26.89 Other abnormalities of gait and mobility; R94.31 Abnormal electrocardiogram [ECG] [EKG]; Z95.0 Presence of cardiac pacemaker; E11.65 Type 2 diabetes mellitus with hyperglycemia; E03.8 Other specified hypothyroidism; R06.02 Shortness of breath; N30.00 Acute cystitis without hematuria; J15.5 Pneumonia due to Escherichia coli; R79.1 Abnormal coagulation profile; B96.29 Other Escherichia coli [E. coli] as the cause of diseases classified elsewhere; Z20.822 Contact with and (suspected) exposure to COVID-19; J01.20 Acute ethmoidal sinusitis, unspecified; J01.00 Acute maxillary sinusitis, unspecified; E78.2 Mixed hyperlipidemia

== ENCOUNTER 2023-08-28 13:49 | Inpatient (IN) ==
--- NOTE | 2023-08-28 13:55 | DR.AMS ---
HPI Time Seen Time Seen by Provider: 08/28/23 15:01 Complaint Cheif Complaint Doctors Comments: 87-year-old female brought in for evaluation. Family states patient not as alert as usual. Does have a history of dementia. Last time she was like this she had a urinary tract infection. Patient is cur rently nonverbal, not responding to questions. She is awake but in no distress. She is normally more interactive and talkative. No report of fever, URI symptoms, vomiting or diarrhea. Reviewed Nurses Notes Reviewed: Yes Source History Provided: Family Member and EMS PMH PMH Past Medical History: Anemia, Arthritis, CHF, Coronary Artery Disease, Dementia, Diabetes, Dyslipidemia, GERD, Hypertension, Hypothyroidism, Kidney Stones and Sleep Apnea Past Surgical History: Yes Surgical History: Angioplasty/Stents, Bowel Resection, Hysterectomy, Mastectomy and Other Family History Family Medical History: MA, Coronary Artery Disease and Hypertension Social History Do you use any recreational Drugs:: No ROS Review of Systems Unable to Obtain Due To: Altered mental status PE Vitals Vital Signs: Temp Pulse Resp BP Pulse Ox O2 Del Method 08/28/23 15:16 76 94 L 08/28/23 15:00 70 93 L 08/28/23 14:45 72 92 L 08/28/23 14:30 71 93 L 08/28/23 14:15 71 94 L 08/28/23 14:08 72 93 L 08/28/23 13:50 97.1 F L 72 18 104/74 94 L Room Air General General Appearance: Alert and In No Apparent Distress Head Head Exam: Normal Inspection, Atraumatic and Normocephalic Eyes Eye exam: PERRL and EOMI Neck Neck Exam: Normal Inspection Respiratory Respiratory Exam: Normal Lung Sounds Bilat; negative Accessory Muscle Use or Respiratory Distress Cardiovascular Cardiovascular Exam: Regular Rate, Normal Rhythm and Normal Heart Sounds Abdominal Exam Abdominal Exam: Normal Bowel Sounds and Soft; negative Tenderness Extremities Extremities Exam: Normal Inspection; negative Edema Neurological Neurological Exam: CN II-XII Intact and Other (Awake but nonverbal. Moving all extremities.); negative Motor Sensory Deficit COURSE Treatment Treatment: 87-year-old female, history of dementia, having decreased alertness/responsiveness. Per family, possible UTI. Work-up initiated. Patient given IV fluids. 1725 -spouse present. Patient was normal 3 days ago, last 2 days has been having decreased activity, not speaking. Did not have much urine output last p.m. Oliva was placed, good amount out. Patient does have 10- 20 white blood cells in the urine, with 2+ bacteria. Patient given IV Rocephin for UTI. Creatinine 2.51, she does Flyte some renal insufficiency per previous labs. We will continue IV fluids. Recommend observation admission for further hydration and treatment of her UTI. Discussed with Dr. Breaux, covering for Dr. Petit, will admit. ROR Labs Reviewed 08/28/23 13:50 08/28/23 13:50 Laboratory: WBC 11.5 X10^3/uL (3.6-10.0) H 08/28/23 13:50 RBC 4.70 X10^6/uL (3.5-5.4) 08/28/23 13:50 Hgb 14.3 g/dL (12.0-16.0) 08/28/23 13:50 Hct 43.3 % (36.0-47.0) 08/28/23 13:50 MCV 92.1 fL (80.0-100.0) 08/28/23 13:50 MCH 30.4 pg (27.0-34.0) 08/28/23 13:50 MCHC 33.0 g/dL (33.0-35.0) 08/28/23 13:50 RDW 15.4 % (11.6-16.5) 08/28/23 13:50 Plt Count 191 X10^3/uL (150.0-450.0) 08/28/23 13:50 MPV 8.7 fL (7.4-11.0) 08/28/23 13:50 Neut % (Auto) 78.4 % (42.0-75.0) H 08/28/23 13:50 Lymph % (Auto) 13.7 % (21.0-51.0) L 08/28/23 13:50 [place] % (Auto) 7.4 % (0.0-13.0) 08/28/23 13:50 Eos % (Auto) 0.1 % (0.9-2.9) L 08/28/23 13:50 Baso % (Auto) 0.4 % (0.2-1.0) 08/28/23 13:50 Neut # (Auto) 9.0 x10^3/uL (2.2-4.8) H 08/28/23 13:50 Lymph # (Auto) 1.6 X10^3/uL (1.3-2.9) 08/28/23 13:50 [place] # (Auto) 0.9 x10^3/uL (0.3-0.8) H 08/28/23 13:50 Eos # (Auto) 0.0 x10^3/uL (0.0-0.2) 08/28/23 13:50 Baso # (Auto) 0.0 X10^3/uL (0.0-0.1) 08/28/23 13:50 Absolute Nucleated RBC 0.1 /100WBC 08/28/23 13:50 Sodium 136 mmol/L (136-145) 08/28/23 13:50 Corrected Sodium 137 mmol/L (136-145) 08/28/23 13:50 Potassium 3.8 mmol/L (3.5-5.1) 08/28/23 13:50 Chloride 100 mmol/L (98-107) 08/28/23 13:50 Carbon Dioxide 29.1 mmol/L (21-32) 08/28/23 13:50 BUN 36 mg/dL (7-18) H 08/28/23 13:50 Creatinine 2.51 mg/dL (0.55-1.02) H 08/28/23 13:50 Est GFR (MDRD) Af Amer 23 (>60) L 08/28/23 13:50 Est GFR (MDRD) Non-Af 19 (>60) L 08/28/23 13:50 Glucose 146 mg/dL (65-99) H 08/28/23 13:50 Lactic Acid 1.6 mmol/L (0.4-2.0) 08/28/23 14:56 Calcium 8.6 mg/dL (8.5-10.1) 08/28/23 13:50 Corrected Calcium 9.4 mg/dL (8.5-10.1) 08/28/23 13:50 Total Bilirubin 1.00 mg/dL (0.2-1.0) 08/28/23 13:50 AST 23 Units/L (15-37) 08/28/23 13:50 ALT < 6 Units/L (12-78) L 08/28/23 13:50 Alkaline Phosphatase 68 Units/L (46-116) 08/28/23 13:50 Total Protein 6.9 g/dL (6.4-8.2) 08/28/23 13:50 Albumin 3.0 g/dL (3.4-5.0) L 08/28/23 13:50 Globulin 3.9 g/dL (2.5-4.5) 08/28/23 13:50 Albumin/Globulin Ratio 0.8 Ratio (1.1-2.1) L 08/28/23 13:50 Specimen Type Catherized urine 08/28/23 15:57 Urine Color Pale yellow (YELLOW) 08/28/23 15:57 Urine Appearance Slightly hazy (CLEAR) 08/28/23 15:57 Urine pH 5.0 (5.0 - 8.0) 08/28/23 15:57 Ur Specific [place] 1.020 (1.000-1.030) 08/28/23 15:57 Urine Protein 1+ (NEGATIVE) 08/28/23 15:57 Urine Glucose (UA) Negative (NEGATIVE) 08/28/23 15:57 Urine Ketones Negative (NEGATIVE) 08/28/23 15:57 Urine Blood 1+ (NEGATIVE) 08/28/23 15:57 Urine Nitrite Negative (NEGATIVE) 08/28/23 15:57 Urine Bilirubin Negative (NEGATIVE) 08/28/23 15:57 Urine Urobilinogen Normal (NORMAL) 08/28/23 15:57 Ur Leukocyte Esterase 1+ (NEGATIVE) 08/28/23 15:57 Urine RBC None seen /HPF (0-3) 08/28/23 15:57 Urine WBC 10-20 /HPF (0-5) A 08/28/23 15:57 Ur Squamous Epith Cells Rare /HPF (NEGATIVE) 08/28/23 15:57 Urine Bacteria 2+ /HPF (NEGATIVE) 08/28/23 15:57 Urine Mucus Rare /HPF (NEGATIVE) 08/28/23 15:57 Ur Culture Indicated? Yes/culture set up 08/28/23 15:57 XRAY XRAY Interpreted by: Self X-ray Results: CXR -poor inspiration, no obvious infiltrate. Opioid Opioid Risk Tool Age (Gagan box if 16-45): No History of Preadolescent Sexual Abuse: No Total: 0 Total Score Risk Category: Low Risk Copyright: [facility] predicting aberrant behaviors Discharge Plan Diagnosis Discharge Problem: Acute UTI, Altered mental status Discharge Plan Patient Disposition: 09 ADMITTED INPATIENT Condition: Stable Prescriptions: No Action famotidine 20 mg tablet 1 tab PO BID atorvastatin 10 mg tablet 1 tab PO HS pramipexole 0.5 mg tablet 1 tab PO TID citalopram 20 mg tablet 1 tab PO DAILY hydrochlorothiazide 12.5 mg capsule 1 cap PO DAILY furosemide 20 mg tablet 1 tab PO BID glimepiride [Amaryl] 4 mg Tablet 4 mg PO BID carbidopa-levodopa 25-250 mg Tablet 1 tab PO TID aspirin 81 mg Tablet,Delayed Release (Dr/Ec) 81 mg PO HS metoprolol succinate 25 mg Tablet Extended Release 24 Hr 25 mg PO BID tizanidine 4 mg tablet 1 tab PO QPM benzonatate 200 mg capsule 1 cap PO QDAY tramadol 50 mg tablet 1 tab PO BID potassium chloride 20 mEq tablet,ER particles/crystals 1 tab PO QDAY gabapentin 300 mg capsule 1 cap PO TID amlodipine 10 mg Tablet 10 mg PO QDAY docusate sodium 100 mg Capsule 100 mg PO QDAY omeprazole 20 mg Capsule,Delayed Release(Dr/Ec) 20 mg PO BID hydroxyzine pamoate 25 mg Capsule 25 mg PO Q6HR PRN cholecalciferol (vitamin D3) [Vitamin D3] 25 mcg (1,000 unit) Tablet 25 mcg PO QDAY Health Concerns: Post Hospitalization: new medications and changes needed to prevent readmission or further decline. Pt educated and given instructions on all concerns. Plan of Treatment: Continue with present treatment and follow up plan. Pt is to keep follow up appointment as instructed and take medications as ordered. Orders to Discharge Patient Discharge Orders: Transfer (Routine); Ordered 08/28/23 Ordered By: Cain Mays Follow ups/Referrals Follow ups/Referrals: Ramiro Petit [Primary Care Provider] - 3 days
[2023-08-28] MEDS ORDERED: NS 500 ML IV 500 ML IV ONE ×2 (13:56→14:18)
[2023-08-28 15:14] LABS: BASOPHILS % (AUTO) 0.4 % (0.2-1.0); EOSINOPHILS % (AUTO) 0.1 % (0.9-2.9); HEMATOCRIT 43.3 % (36.0-47.0); HEMOGLOBIN 14.3 g/dL (12.0-16.0); LYMPHOCYTES # (AUTO) 1.6 X10^3/uL (1.3-2.9); LYMPHOCYTES % (AUTO) 13.7 % (21.0-51.0); MEAN CORPUSCULAR HEMOGLOBIN 30.4 pg (27.0-34.0); MEAN CORPUSCULAR VOLUME 92.1 fL (80.0-100.0); MEAN PLATELET VOLUME 8.7 fL (7.4-11.0); MONOCYTES # (AUTO) 0.9 x10^3/uL (0.3-0.8); MONOCYTES % (AUTO) 7.4 % (0.0-13.0); NEUTROPHILS % (AUTO) 78.4 % (42.0-75.0); PLATELET COUNT 191 X10^3/uL (150.0-450.0); RED CELL DISTRIBUTION WIDTH 15.4 % (11.6-16.5); WHITE BLOOD COUNT 11.5 X10^3/uL (3.6-10.0)
--- NOTE | 2023-08-28 15:15 | RAD ---
EXAM: CHEST X-RAYHISTORY: Altered mental status x3 days.TECHNIQUE: AP CXR dated August 28, 2023 at 2:46 PM.COMPARISON: CXR dated December 16, 2022.FINDINGS:There is a right anterior chest wall chest port in situ with the distal tip in the distal SVC (adequate position). There is a left anterior chest wall subclavian cardiac pacer with intact pacer wires to the right atrium and right ventricle. There is severe aortic atherosclerosis.There is evidence for a shallow inspiratory effort with mild prominence of the bronchopulmonary markings and widening of the cardiac silhouette. Note that minimal CHF or volume overload cannot be excluded in this radiographic setting. Clinical correlation is advised.There is no gross focal lung consolidation, pleural effusion, or pneumothorax. The visualized bony structures are within normal limits.IMPRESSION:1. Shallow inspiratory effort with mild prominence of the bronchopulmonary markings and widening of the cardiac silhouette; DDX includes minimal CHF or volume overload in the appropriate clinical setting; consider mild bronchitis and interstitial pneumonia in the appropriate clinical setting.2. Recommend clinical correlation and appropriate follow-up x-ray evaluation to ensure complete clearance as clinically warranted.3. No significant interval change seen.4. Consider follow evaluation with noncontrast chest CT for further characterization as clinically warranted.THIS IS AN ELECTRONICALLY VERIFIED FINAL [id number]/28/2023 3:12 PM - Electronically signed by Ashanti Ruiz
[2023-08-28 15:20] LABS: ALANINE AMINOTRANSFERASE < 6 Units/L (12-78); ALKALINE PHOSPHATASE 68 Units/L (46-116); ASPARTATE AMINO TRANSFERASE 23 Units/L (15-37); BLOOD UREA NITROGEN 36 mg/dL (7-18); CALCIUM 8.6 mg/dL (8.5-10.1); CARBON DIOXIDE 29.1 mmol/L (21-32); CHLORIDE 100 mmol/L (98-107); COR CA(FOR HYPOALB) 9.4 mg/dL (8.5-10.1); COR NA(FOR HYPERGLY) 137 mmol/L (136-145); CREATININE 2.51 mg/dL (0.55-1.02); GLUCOSE 146 mg/dL (65-99); POTASSIUM 3.8 mmol/L (3.5-5.1); SODIUM 136 mmol/L (136-145); TOTAL PROTEIN 6.9 g/dL (6.4-8.2); eGFR NON BLACK RACES 19 (>60)
[2023-08-28 16:05] LABS: BILIRUBIN,URINE NEGATIVE (NEGATIVE); BLOOD/HEMOGLOBIN,URINE 1+ (NEGATIVE); GLUCOSE, URINE NEGATIVE (NEGATIVE); KETONES,URINE NEGATIVE (NEGATIVE); LEUKOCYTE ESTERASE ,URINE 1+ (NEGATIVE); NITRITES,URINE NEGATIVE (NEGATIVE); PROTEIN,URINE 1+ (NEGATIVE); UROBILINOGEN,URINE NORMAL (NORMAL)
[2023-08-28 16:14] LABS: APPEARANCE,URINE SLIGHTLY HAZY (CLEAR); COLOR,URINE PALE YELLOW (YELLOW)
[2023-08-28 16:15] LABS: BACTERIA,URINE 2+ /HPF (NEGATIVE); RBC,URINE NONE SEEN /HPF (0-3); SQUAMOUS EPITHELIAL CELL,UR RARE /HPF (NEGATIVE)
[2023-08-28] MEDS ORDERED: ROCEPHIN VIAL 1 GRAM IVP ONE (16:29)
[2023-08-28] MEDS ORDERED: ROCEPHIN VIAL 1 GRAM ONE (16:49)
[2023-08-28] MEDS ORDERED: CONSULT PHARMACY - POTASSIUM & MAGNESIUM XX SCH (18:10)
[2023-08-28] MEDS ORDERED: ASPIRIN EC 81 MG PO SCH (21:00)
--- NOTE | 2023-08-28 21:22 | PCM.PROG ---
Progress Note - Past Medical Family Social History Allergies: Allergies adhesive tape Allergy (Unknown, Verified 05/03/19 15:13) latex Allergy (Unknown, Verified 08/07/22 10:06) sulfamethoxazole [From Bactrim] Adverse Reaction (Unknown, Verified 08/07/22 10:06) trimethoprim [From Bactrim] Adverse Reaction (Unknown, Verified 08/07/22 10:06) ADHESIVE TAPE Allergy (Unknown, Uncoded 08/07/22 10:06) - Vital Signs and I&O's Vital Signs: Vital Signs Temperature 97.9 F Temperature 97.1 F Pulse Rate [Right] 75 Pulse Rate 72 Pulse Rate 64 Pulse Rate 76 Pulse Rate 70 Pulse Rate 72 Pulse Rate 71 Pulse Rate 71 Pulse Rate 72 Pulse Rate 72 Respiratory Rate 18 Respiratory Rate 18 Blood Pressure [Right Arm] 176/82 Blood Pressure 130/88 Blood Pressure 130/88 Blood Pressure 215/102 Blood Pressure 214/147 Blood Pressure 214/147 Blood Pressure 104/74 O2 Sat by Pulse Oximetry 94 O2 Sat by Pulse Oximetry 93 O2 Sat by Pulse Oximetry 95 O2 Sat by Pulse Oximetry 92 O2 Sat by Pulse Oximetry 94 O2 Sat by Pulse Oximetry 93 O2 Sat by Pulse Oximetry 92 O2 Sat by Pulse Oximetry 93 O2 Sat by Pulse Oximetry 94 O2 Sat by Pulse Oximetry 93 O2 Sat by Pulse Oximetry 94 - Physical Exam Speech Pattern: Aphasic - Laboratory and Diagnostics Result Diagrams: 08/28/23 13:50 08/28/23 13:50 Labs: Laboratory WBC 11.5 X10^3/uL (3.6-10.0) H 08/28/23 13:50 RBC 4.70 X10^6/uL (3.5-5.4) 08/28/23 13:50 Hgb 14.3 g/dL (12.0-16.0) 08/28/23 13:50 Hct 43.3 % (36.0-47.0) 08/28/23 13:50 MCV 92.1 fL (80.0-100.0) 08/28/23 13:50 MCH 30.4 pg (27.0-34.0) 08/28/23 13:50 MCHC 33.0 g/dL (33.0-35.0) 08/28/23 13:50 RDW 15.4 % (11.6-16.5) 08/28/23 13:50 Plt Count 191 X10^3/uL (150.0-450.0) 08/28/23 13:50 MPV 8.7 fL (7.4-11.0) 08/28/23 13:50 Neut % (Auto) 78.4 % (42.0-75.0) H 08/28/23 13:50 Lymph % (Auto) 13.7 % (21.0-51.0) L 08/28/23 13:50 [place] % (Auto) 7.4 % (0.0-13.0) 08/28/23 13:50 Eos % (Auto) 0.1 % (0.9-2.9) L 08/28/23 13:50 Baso % (Auto) 0.4 % (0.2-1.0) 08/28/23 13:50 Neut # (Auto) 9.0 x10^3/uL (2.2-4.8) H 08/28/23 13:50 Lymph # (Auto) 1.6 X10^3/uL (1.3-2.9) 08/28/23 13:50 [place] # (Auto) 0.9 x10^3/uL (0.3-0.8) H 08/28/23 13:50 Eos # (Auto) 0.0 x10^3/uL (0.0-0.2) 08/28/23 13:50 Baso # (Auto) 0.0 X10^3/uL (0.0-0.1) 08/28/23 13:50 Absolute Nucleated RBC 0.1 /100WBC 08/28/23 13:50 Sodium 136 mmol/L (136-145) 08/28/23 13:50 Corrected Sodium 137 mmol/L (136-145) 08/28/23 13:50 Potassium 3.8 mmol/L (3.5-5.1) 08/28/23 13:50 Chloride 100 mmol/L (98-107) 08/28/23 13:50 Carbon Dioxide 29.1 mmol/L (21-32) 08/28/23 13:50 BUN 36 mg/dL (7-18) H 08/28/23 13:50 Creatinine 2.51 mg/dL (0.55-1.02) H 08/28/23 13:50 Est GFR (MDRD) Af Amer 23 (>60) L 08/28/23 13:50 Est GFR (MDRD) Non-Af 19 (>60) L 08/28/23 13:50 Glucose 146 mg/dL (65-99) H 08/28/23 13:50 POC Glucose (mg/dL) 129 mg/dL (65-99) H 08/28/23 19:57 Lactic Acid 1.6 mmol/L (0.4-2.0) 08/28/23 14:56 Calcium 8.6 mg/dL (8.5-10.1) 08/28/23 13:50 Corrected Calcium 9.4 mg/dL (8.5-10.1) 08/28/23 13:50 Total Bilirubin 1.00 mg/dL (0.2-1.0) 08/28/23 13:50 AST 23 Units/L (15-37) 08/28/23 13:50 ALT < 6 Units/L (12-78) L 08/28/23 13:50 Alkaline Phosphatase 68 Units/L (46-116) 08/28/23 13:50 Total Protein 6.9 g/dL (6.4-8.2) 08/28/23 13:50 Albumin 3.0 g/dL (3.4-5.0) L 08/28/23 13:50 Globulin 3.9 g/dL (2.5-4.5) 08/28/23 13:50 Albumin/Globulin Ratio 0.8 Ratio (1.1-2.1) L 08/28/23 13:50 Specimen Type Catherized urine 08/28/23 15:57 Urine Color Pale yellow (YELLOW) 08/28/23 15:57 Urine Appearance Slightly hazy (CLEAR) 08/28/23 15:57 Urine pH 5.0 (5.0 - 8.0) 08/28/23 15:57 Ur Specific [place] 1.020 (1.000-1.030) 08/28/23 15:57 Urine Protein 1+ (NEGATIVE) 08/28/23 15:57 Urine Glucose (UA) Negative (NEGATIVE) 08/28/23 15:57 Urine Ketones Negative (NEGATIVE) 08/28/23 15:57 Urine Blood 1+ (NEGATIVE) 08/28/23 15:57 Urine Nitrite Negative (NEGATIVE) 08/28/23 15:57 Urine Bilirubin Negative (NEGATIVE) 08/28/23 15:57 Urine Urobilinogen Normal (NORMAL) 08/28/23 15:57 Ur Leukocyte Esterase 1+ (NEGATIVE) 08/28/23 15:57 Urine RBC None seen /HPF (0-3) 08/28/23 15:57 Urine WBC 10-20 /HPF (0-5) A 08/28/23 15:57 Ur Squamous Epith Cells Rare /HPF (NEGATIVE) 08/28/23 15:57 Urine Bacteria 2+ /HPF (NEGATIVE) 08/28/23 15:57 Urine Mucus Rare /HPF (NEGATIVE) 08/28/23 15:57 Ur Culture Indicated? Yes/culture set up 08/28/23 15:57 Procedures (ALL) - Central Line Placement PCM.CLCO: written consent Time out performed: Yes Patient placed pm monitor/pulse ox: Yes MD prep: mask, gown, gloves, other Centrial line prep: chlorhexidine scrub Local anesthsia used: lidocane 1% (2cc SQ) Ultrasound used for placement: Yes (good visual) Central line lumen ininserted: double Post procedure: good blood return, all ports aspirated, flushed,capped, sterile dressing applied (STAT lock applied sterile.) Post procedure xray: tip oc catheter in good position, no pneumothorax seen, other Patient tolerated procedure: Yes (x1 attempt) Complications: none (Right sided PICC with MSBT. inserted to 37cm. )
[2023-08-28] MEDS: D5 1/2 NS 1,000 ML 1,000 ML IV SCH (21:33)
[2023-08-28] MEDS: ROCEPHIN VIAL 1 GRAM 1 G in NS 100 ML IV 100 ML IV SCH (21:33)
[2023-08-28] MEDS: PriLOSEC PO SCH (21:34)
[2023-08-28] MEDS: SNACK - Diabetic Appropriate PO SCH (21:34)
[2023-08-28] MEDS: AMARYL TAB 4 MG PO SCH (21:34)
[2023-08-28] MEDS: TOPROL XL PO SCH (21:35)
[2023-08-28] MEDS: MIRAPEX TAB 1 MG PO SCH (21:35)
[2023-08-28] MEDS: SINEMET (PLAIN) 25/250 MG PO SCH (21:35)
[2023-08-28 22:02] VITALS: BMI 26.2
--- NOTE | 2023-08-28 22:25 | RAD ---
EXAM:CHEST, 1 VIEWHISTORY:PICC confirmationCOMPARISON:August 28, 2023 at 2:46 p.m.TECHNIQUE:Chest radiographic imaging, AP portable projection, 1 imageFINDINGS:Mild cardiomegaly.Pacemaker in place.Right chest port in place.Right PICC in place with the tip overlying the upper SVC roughly 6 cm proximal to the cavoatrial junction.No focal consolidation.Diffuse increased interstitial markings.No effusion.IMPRESSION:No significant interval acute cardiopulmonary changes. Support apparatus as described above.THIS IS AN ELECTRONICALLY VERIFIED FINAL [id number]/28/2023 10:22 PM - Electronically signed by Dg Chen MD
[2023-08-29] MEDS: SINEMET (PLAIN) 25/250 MG PO SCH ×3 (05:15→21:34)
[2023-08-29] MEDS: MIRAPEX TAB 1 MG PO SCH ×3 (05:15→21:34)
[2023-08-29 05:24] LABS: BASOPHILS # (AUTO) 0.1 X10^3/uL (0.0-0.1); BASOPHILS % (AUTO) 0.8 % (0.2-1.0); EOSINOPHILS # (AUTO) 0.1 x10^3/uL (0.0-0.2); EOSINOPHILS % (AUTO) 0.9 % (0.9-2.9); HEMATOCRIT 39.4 % (36.0-47.0); HEMOGLOBIN 13.1 g/dL (12.0-16.0); LYMPHOCYTES # (AUTO) 1.7 X10^3/uL (1.3-2.9); LYMPHOCYTES % (AUTO) 17.3 % (21.0-51.0); MEAN CORPUSCULAR HEMOGLOBIN 30.6 pg (27.0-34.0); MEAN CORPUSCULAR HGB CONC 33.2 g/dL (33.0-35.0); MEAN CORPUSCULAR VOLUME 92.1 fL (80.0-100.0); MEAN PLATELET VOLUME 8.1 fL (7.4-11.0); MONOCYTES # (AUTO) 0.8 x10^3/uL (0.3-0.8); MONOCYTES % (AUTO) 8.6 % (0.0-13.0); NEUTROPHILS # (AUTO) 7.1 x10^3/uL (2.2-4.8); NEUTROPHILS % (AUTO) 72.4 % (42.0-75.0); PLATELET COUNT 178 X10^3/uL (150.0-450.0); RED BLOOD COUNT 4.28 X10^6/uL (3.5-5.4); RED CELL DISTRIBUTION WIDTH 15.4 % (11.6-16.5); WHITE BLOOD COUNT 9.8 X10^3/uL (3.6-10.0)
[2023-08-29 05:48] LABS: ALANINE AMINOTRANSFERASE < 6 Units/L (12-78); ALBUMIN 2.5 g/dL (3.4-5.0); ALKALINE PHOSPHATASE 61 Units/L (46-116); ASPARTATE AMINO TRANSFERASE 20 Units/L (15-37); BLOOD UREA NITROGEN 33 mg/dL (7-18); CALCIUM 8.3 mg/dL (8.5-10.1); CARBON DIOXIDE 29.4 mmol/L (21-32); CHLORIDE 100 mmol/L (98-107); COR CA(FOR HYPOALB) 9.5 mg/dL (8.5-10.1); COR NA(FOR HYPERGLY) 139 mmol/L (136-145); CREATININE 2.04 mg/dL (0.55-1.02); GLUCOSE 225 mg/dL (65-99); POTASSIUM 3.5 mmol/L (3.5-5.1); SODIUM 136 mmol/L (136-145); TOTAL PROTEIN 6.1 g/dL (6.4-8.2); eGFR NON BLACK RACES 24 (>60)
[2023-08-29] MEDS ORDERED: CONSULT PHARMACY - POTASSIUM & MAGNESIUM XX SCH (07:00)
[2023-08-29] MEDS ORDERED: COLACE CAP 100 MG PO SCH (09:00)
[2023-08-29] MEDS ORDERED: K-DUR TAB 20 MEQ PO SCH (09:00)
[2023-08-29] MEDS: CELEXA PO SCH (09:09)
[2023-08-29] MEDS: AMARYL TAB 4 MG PO SCH ×2 (09:10→20:15)
[2023-08-29] MEDS: PriLOSEC PO SCH (09:10)
[2023-08-29] MEDS: TOPROL XL PO SCH (09:10)
[2023-08-29] MEDS: LOVENOX INJ 30 MG SYR SC SCH (09:10)
[2023-08-29] MEDS: ROCEPHIN VIAL 1 GRAM 1 G in NS 100 ML IV 100 ML IV SCH (09:11)
[2023-08-29] MEDS: COLACE SYRUP 100 MG UDC PO SCH (09:35)
[2023-08-29] MEDS: D5 1/2 NS 1,000 ML 1,000 ML IV SCH ×2 (09:35→20:17)
[2023-08-29] MEDS ORDERED: TESSALON PERLES PO SCH (11:00)
[2023-08-29] MEDS ORDERED: PEPCID TAB 20 MG PO SCH (11:00)
[2023-08-29] MEDS ORDERED: CATAPRES TAB 0.1 MG PO ONE (11:53)
--- NOTE | 2023-08-29 12:20 | DR.H&P ---
H&P - History & Physical for Day of: H&P Date: 08/28/23 - Chief Complaint Chief Complaint: DECREASED RESPONSIVENESS, AMS - History of Present Illness History of Present Illness: IS A 87 YEAR OLD PATIENT OF OURS. SHE PRESENTED TO THE ER VIA EMS WITH FAMILY REPORTING THAT PATIENT HAS HAD DECREASED RESPONSIVENESS. THEY REPORT THAT PATIENT USUALLY GETS IN THIS STATE WHEN SHE HAS A URINARY TRACT INFECTION. THEY DENY FEVER, URI SYMPTOMS, VOMITING, OR DIARRHEA. UPON EVALUATION, PATIENT WAS NONVERBAL AND DID NOT RESPOND TO QUESTIONS OR COMMANDS. HER PMH INCLUDES: CAD, HTN, DYSLIPIDEMIA, DM II, HYPOTHYROIDISM, ANEMIA, GERD, ARTHRITIS, KIDNEY STONES, SLEEP APNEA, CHF, HYSTERECTOMY, MASTECTOMY, BOWEL RESECTION, AND CARDIAC STENTS. ON ARRIVAL TO THE HOSPITAL, VITALS WERE 97.1-72-18-94%-104/74. LABS WERE OBTAINED. WBC 11.5, RBC 4.70, HGB 14.3, HCT 43.3, PLT COUNT 191, SODIUM 136, POTASSIUM 3.8, CHLORIDE 100, CARBON DIOXIDE 29.1, BUN 36, CREATININE 2.51, GLUCOSE 146, LACTIC ACID 1.6, CALCIUM 8.6, TOTAL BILI 1.00, AST 23, ALT <6, ALK PHOS 68, TOTAL PROTEIN 6.9, ALBUMIN 3.0. A URINALYSIS WAS OBTAINED AND REVEALED: WBC 10-20, RBC NONE SEEN, LEUKOCYTES 1+, BACTERIA 2+, NITRITE NEGATIVE. A URINE CULTURE AND BLOOD CULTURES WERE SET UP. A CHEST XRAY WAS OBTAINED AND REVEALED: 1. Shallow inspiratory effort with mild prominence of the bronchopulmonary markings and widening of the cardiac silhouette; DDX includes minimal CHF or volume overload in the appropriate clinical setting; consider mild bronchitis and interstitial pneumonia in the appropriate clinical setting. IN THE ER, SHE WAS GIVEN A NORMAL SALINE BOLUS AND ROCEPHIN 1G IV X 1. PATIENT WAS ADMITTED TO THE HOSPITAL FOR FURTHER EVALUATION AND TREATMENT OF ACUTE UTI, ALTERED MENTAL STATUS, ACUTE ON CHRONIC RENAL FAILURE. SHE WAS STARTED ON D5 NS AT 80 ML/HR, ROCEPHIN 1G IV DAILY, LOVENOX 30MG SC DAILY, OTBS ACHS, HUMULIN R SLIDING SCALE, AND HER HOME MEDICATIONS WERE RESUMED. HOME MEDICATIONS INCLUDE: ECOTRIN, TESSALON PERLES, SINEMET, CELEXA, COLACE, PEPCID, AMARYL, TOPROL XL, PRILOSEC, AND MIRAPEX. OTHERWISE, WE PLAN TO FOLLOW-UP WITH AM LABS AND CONTINUE TO MONITOR. WE WILL HAVE PHYSICAL THERAPY EVALUATE PATIENT. TIME SPENT ON CLINICAL ASSESSMENT, REVIEWING LABS AND IMAGING, DECISION MAKING, AND DOCUMENTATION GREATER THAN 75 MINUTES. - Past Medical History Past Medical History: Coronary Artery Disease, Hypertension, Dyslipidemia, Diabetes, Dementia, Hypothyroidism, Anemia, GERD, Arthritis, Kidney Stones, Sleep Apnea, CHF Additional Medical History: Vision Deficit, Parkinson's Disease, Atrial Fibrillation, Bronchitis, Pneumonia, Constipation, Diarrhea, Colon Cancer, Breast Cancer, Urinary Tract Infections, Muscle Weakness, Back Pain, Neuropathy, Previous Blood Transfusion - Past Surgical History Surgical History: Angioplasty/Stents, Bowel Resection, Hysterectomy, Mastectomy, Other Additional Surgical History: Pacemaker, Two Colon Resection's for Colon Cancer, Left Partial Mastectomy for Breast Cancer, Right Chest Wall Port a cath, Left PAU - Family History Family Medical History: DC, Coronary Artery Disease, Hypertension - Social History Does patient currently use any type of tobacco product: No Have you used tobacco products in the last 12 months: No Type of Tobacco Use: None Does any household member use tobacco: No Alcohol Use: None - Review of Systems Constitutional: Weakness Eyes: No Symptoms Reported ENT: No Symptoms Reported Respiratory: No Symptoms Reported Cardiovascular: No Symptoms Reported Gastrointestinal: No Symptoms Reported Genitourinary: No Symptoms Reported Musculoskeletal: No Symptoms Reported Skin: No Symptoms Reported Neurological: Weakness, Confusion - Physical Exam Vital Signs: Vital Signs Temperature 98.6 F Pulse Rate [Right] 67 Respiratory Rate 18 Blood Pressure [Right Arm] 183/90 O2 Sat by Pulse Oximetry 93 Oriented: Unable to test Eyes: Normal Ear: Normal Nose: Normal Throat: Normal Respiratory: Diminished Throughout Cardiovascular: Normal : Normal Auscultation: Bowel Sounds: Normal Palpation: Normal Tenderness: Normal Skin: Decreased [place] Musculoskeletal: Normal Psychiatric: Normal Mood Description: Calm Affect: Normal Speech Pattern: Clear - Assessment/Plan (1) Acute UTI Status: Acute (2) Acute on chronic renal failure Qualifiers: Acute renal failure type: unspecified Chronic kidney disease stage: unspecified stage Qualified Code(s): N17.9 - Acute kidney failure, unspecified; N18.9 - Chronic kidney disease, unspecified Status: Chronic (3) AMS (altered mental status) Qualifiers: Altered mental status type: transient alteration of awareness Qualified Code(s): R40.4 - Transient alteration of awareness Status: Acute Plan: ADMIT, PT/OT, D51/2 NS AT 80 ML/HR, ROCEPHIN 1G IV DAILY, LOVENOX 30MG SC DAILY, OTBS ACHS, HUMULIN R SLIDING SCALE, RESUME HOME MEDS (4) Generalized weakness Status: Acute (5) Diabetes mellitus, type II Qualifiers: Diabetes mellitus fci insulin use: without fci use Diabetes mellitus complication status: with kidney complications Diabetes mellitus complication detail: with chronic kidney disease Chronic kidney disease stage: stage 3 (moderate) Chronic kidney disease stage 3 subtype: stage 3b (GFR 30- 44) Qualified Code(s): E11.22 - Type 2 diabetes mellitus with diabetic chronic kidney disease; N18.32 - Chronic kidney disease, stage 3b Status: Chronic Plan: OTBS ACHS, HUMULIN R SLIDING SCALE, RESUME AMARYL (6) Parkinson disease Qualifiers: Dyskinesia presence: unspecified whether dyskinesia Fluctuating manifestations: unspecified whether manifestations fluctuate Qualified Code(s): G20.A1 - Parkinson's disease without dyskinesia, without mention of fluctuations Status: Chronic Plan: RESUME SINEMET (7) GERD (gastroesophageal reflux disease) Qualifiers: Esophagitis presence: esophagitis presence not specified Qualified Code(s): K21.9 - Gastro-esophageal reflux disease without esophagitis Status: Chronic Plan: RESUME PRIOLOSEC (8) HTN (hypertension) Qualifiers: Hypertension type: primary hypertension Qualified Code(s): I10 - Essential (primary) hypertension Status: Chronic Plan: RESUME TOPROL XL - Allergies Allergies/Adverse Reactions: Allergies Allergy/AdvReac Type Severity Reaction Status Date / Time adhesive tape Allergy Unknown Verified 05/03/19 15:13 latex Allergy Unknown Verified 08/07/22 10:06 sulfamethoxazole AdvReac Unknown Verified 08/07/22 10:06 [From Bactrim] trimethoprim [From Bactrim] AdvReac Unknown Verified 08/07/22 10:06 ADHESIVE TAPE Allergy Unknown Uncoded 08/07/22 10:06 - Medications Home Medications: Home Medications Medication Instructions Recorded Confirmed atorvastatin 10 mg tablet 1 tab PO HS 05/13/22 12/08/22 citalopram 20 mg tablet 1 tab PO DAILY 05/13/22 08/28/23 famotidine 20 mg tablet 1 tab PO BID 05/13/22 08/28/23 furosemide 20 mg tablet 1 tab PO BID 05/13/22 08/28/23 hydrochlorothiazide 12.5 mg capsule 1 cap PO DAILY 05/13/22 08/28/23 pramipexole 0.5 mg tablet 1 tab PO TID 05/13/22 08/28/23 aspirin 81 mg tablet,delayed 81 mg PO HS 06/03/22 08/28/23 release carbidopa 25 mg-levodopa 250 mg 1 tab PO TID 06/03/22 08/28/23 tablet glimepiride 4 mg tablet (Amaryl) 4 mg PO BID 06/03/22 08/28/23 metoprolol succinate 25 mg 25 mg PO BID 06/03/22 08/28/23 tablet,extended release 24 hr amlodipine 10 mg tablet 10 mg PO QDAY 12/08/22 12/08/22 benzonatate 200 mg capsule 1 cap PO QDAY 12/08/22 08/28/23 cholecalciferol (vitamin D3) 25 25 mcg PO QDAY 12/08/22 12/08/22 mcg (1,000 unit) tablet (Vitamin D3) docusate sodium 100 mg capsule 100 mg PO QDAY 12/08/22 08/28/23 gabapentin 300 mg capsule 1 cap PO TID 12/08/22 08/28/23 hydroxyzine pamoate 25 mg capsule 25 mg PO Q6HR PRN 12/08/22 12/08/22 omeprazole 20 mg capsule,delayed 20 mg PO BID 12/08/22 08/28/23 release potassium chloride 20 mEq 1 tab PO QDAY 12/08/22 08/28/23 tablet,extended release(part/cryst) tizanidine 4 mg tablet 1 tab PO QPM 12/08/22 12/08/22 tramadol 50 mg tablet 1 tab PO BID 12/08/22 12/08/22
[2023-08-29] MEDS: NovoLIN R (or HumuLIN R) SUBCUT PRN ×3 (14:13→20:18)
[2023-08-29] MEDS: ROBITUSSIN DM PO SCH ×2 (16:51→20:16)
[2023-08-29] MEDS ORDERED: SNACK - Diabetic Appropriate PO SCH (20:00)
[2023-08-29] MEDS: SNACK - Diabetic Appropriate PO SCH (20:16)
[2023-08-29] MEDS: LOPRESSOR TAB 25 MG PO SCH (20:16)
[2023-08-30] MEDS: D5 1/2 NS 1,000 ML 1,000 ML IV SCH ×3 (03:29→22:08)
[2023-08-30] MEDS: MIRAPEX TAB 1 MG PO SCH ×3 (05:04→22:07)
[2023-08-30] MEDS: SINEMET (PLAIN) 25/250 MG PO SCH ×3 (05:05→22:07)
[2023-08-30 05:36] LABS: BASOPHILS # (AUTO) 0.1 X10^3/uL (0.0-0.1); BASOPHILS % (AUTO) 0.6 % (0.2-1.0); EOSINOPHILS # (AUTO) 0.1 x10^3/uL (0.0-0.2); EOSINOPHILS % (AUTO) 1.3 % (0.9-2.9); HEMATOCRIT 38.4 % (36.0-47.0); HEMOGLOBIN 12.8 g/dL (12.0-16.0); LYMPHOCYTES # (AUTO) 1.9 X10^3/uL (1.3-2.9); LYMPHOCYTES % (AUTO) 18.6 % (21.0-51.0); MEAN CORPUSCULAR HEMOGLOBIN 30.5 pg (27.0-34.0); MEAN CORPUSCULAR HGB CONC 33.4 g/dL (33.0-35.0); MEAN CORPUSCULAR VOLUME 91.2 fL (80.0-100.0); MEAN PLATELET VOLUME 8.4 fL (7.4-11.0); MONOCYTES # (AUTO) 1.1 x10^3/uL (0.3-0.8); MONOCYTES % (AUTO) 10.6 % (0.0-13.0); NEUTROPHILS # (AUTO) 7.1 x10^3/uL (2.2-4.8); NEUTROPHILS % (AUTO) 68.9 % (42.0-75.0); PLATELET COUNT 170 X10^3/uL (150.0-450.0); RED BLOOD COUNT 4.21 X10^6/uL (3.5-5.4); RED CELL DISTRIBUTION WIDTH 15.4 % (11.6-16.5); WHITE BLOOD COUNT 10.3 X10^3/uL (3.6-10.0)
[2023-08-30 05:47] LABS: ALANINE AMINOTRANSFERASE < 6 Units/L (12-78); ALBUMIN 2.4 g/dL (3.4-5.0); ALKALINE PHOSPHATASE 57 Units/L (46-116); ASPARTATE AMINO TRANSFERASE 16 Units/L (15-37); BLOOD UREA NITROGEN 21 mg/dL (7-18); CALCIUM 8.3 mg/dL (8.5-10.1); CARBON DIOXIDE 28.1 mmol/L (21-32); CHLORIDE 101 mmol/L (98-107); COR CA(FOR HYPOALB) 9.6 mg/dL (8.5-10.1); CREATININE 1.34 mg/dL (0.55-1.02); GLUCOSE 109 mg/dL (65-99); POTASSIUM 3.7 mmol/L (3.5-5.1); SODIUM 135 mmol/L (136-145); eGFR NON BLACK RACES 40 (>60)
[2023-08-30] MEDS ORDERED: CONSULT PHARMACY - POTASSIUM & MAGNESIUM XX SCH (06:00)
[2023-08-30] MEDS ORDERED: K-DUR TAB 20 MEQ PO SCH (09:00)
[2023-08-30] MEDS ORDERED: K-RIDER 10 MEQ/NS 100 ML 10 MEQ/100 ML BAG IV SCH (09:00)
[2023-08-30] MEDS ORDERED: DIPRIVAN VIAL 20 ML ONE (09:31)
[2023-08-30] MEDS ORDERED: NS 1,000 ML IV 0 ML ONE (10:00)
[2023-08-30] MEDS ORDERED: NS 1,000 ML IV 1,000 ML ONE (10:00)
[2023-08-30] MEDS: ROCEPHIN VIAL 1 GRAM 1 G in NS 100 ML IV 100 ML IV SCH (10:46)
[2023-08-30] MEDS: PROTONIX INJ 40 MG VIAL IVP SCH (10:47)
[2023-08-30] MEDS: LOVENOX INJ 30 MG SYR SC SCH (10:51)
[2023-08-30] MEDS: ASPIRIN 81 MG CHEWTAB PO SCH (10:57)
[2023-08-30] MEDS: AMARYL TAB 4 MG PO SCH ×2 (10:57→20:37)
[2023-08-30] MEDS: CELEXA PO SCH (10:58)
[2023-08-30] MEDS: COLACE SYRUP 100 MG UDC PO SCH (10:59)
[2023-08-30] MEDS: LOPRESSOR TAB 25 MG PO SCH ×2 (10:59→20:37)
[2023-08-30] MEDS: ROBITUSSIN DM PO SCH ×4 (11:00→20:37)
[2023-08-30] MEDS ORDERED: TORADOL 15 MG VIAL IVP ONE (11:44)
--- NOTE | 2023-08-30 13:10 | PCM.PROG ---
Progress Note - Progress Note for Day of Date of Exam: 08/30/23 - Subjective Subjective: IS CURRENTLY INPATIENT STATUS FOR TREATMENT OF E.COLI UTI, ACUTE ON CHRONIC RENAL FAILURE, DEHYDRATION, AMS, AND GENERALIZED WEAKNESS. TODAY, SHE IS ALERT AND ORIENTED, LYING IN BED ON MORNING ROUNDS. SHE CONTINUES WITH COMPLAINTS OF GENERALIZED WEAKNESS THIS MORNING. SHE DOES ADMIT TO SLIGHT IMPROVEMENT IN SYMPTOMS SINCE ADMISSION. STAFF REPORTS THAT SHE HAS AMBULATED IN ROOM WITH ASSISTANCE. HER PMH INCLUDES: CAD, HTN, DYSLIPIDEMIA, DM II, HYPOTHYROIDISM, ANEMIA, GERD, ARTHRITIS, KIDNEY STONES, SLEEP APNEA, CHF, HYSTERECTOMY, MASTECTOMY, BOWEL RESECTION, AND CARDIAC STENTS. ON EXAMINATION TODAY, HEART IS REGULAR IN RATE AND RHYTHM. BILATERAL LUNGS ARE NOTED WITH DIMINISHED LUNG SOUNDS THROUGHOUT. ABDOMEN IS ROUND, SOFT, AND NON-TENDER WITH NORMAL BOWEL SOUNDS NOTED IN ALL QUADRANTS. NO UPPER OR LOWER EXTREMITY EDEMA NOTED. HER VITALS THIS MORNING WERE 97.0-75-18-94%-125/80. SHE IS CURRENTLY ON ROOM AIR. LABS WERE OBTAINED. WBC 10.3, RBC 4.21, HGB 12.8, HCT 38.4, PLT COUNT 170, SODIUM 135, POTASSIUM 3.7, CHLORIDE 101, CARBON DIOXIDE 28.1, BUN 21, CREATININE 1.34, GLUCOSE 109, CALCIUM 8.3, MAGNESIUM 1.9, TOTAL BILI 0.70, AST 16, ALT <6, ALK PHOS 57, TOTAL PROTEIN 6.0, ALBUMIN 2.4. URINE CULTURE POSITIVE FOR GROWTH OF E.COLI. BLOOD CULTURES ARE PENDING. SHE IS CURRENTLY RECEIVING D5 NS AT 80 ML/HR, ROCEPHIN 1G IV DAILY, LOVENOX 30MG SC DAILY, OTBS ACHS, HUMUL IN R SLIDING SCALE, AND HER HOME MEDICATIONS WERE RESUMED. HOME MEDICATIONS INCLUDE: ECOTRIN, TESSALON PERLES, SINEMET, CELEXA, COLACE, PEPCID, AMARYL, TOPROL XL, PRILOSEC, AND MIRAPEX. OTHERWISE, WE PLAN TO FOLLOW-UP WITH AM LABS AND CONTINUE TO MONITOR. WE WILL CONTINUE WITH CURRENT PLAN OF CARE TODAY. WE WILL HAVE PHYSICAL THERAPY EVALUATE HER. OTHERWISE, WE WILL FOLLOW-UP WITH AM LABS AND CHEST XRAY AND CONTINUE TO MONITOR. TIME SPENT ON CLINICAL ASSESSMENT, REVIWING LABS AND IMAGING, DECISION MAKING, AND DOCUMENTATION GREATER THAN 45 MINUTES. - Past Medical Family Social History Past Med/Fam/Surg Hx: No changes since H&P Allergies: Allergies adhesive tape Allergy (Unknown, Verified 05/03/19 15:13) latex Allergy (Unknown, Verified 08/07/22 10:06) sulfamethoxazole [From Bactrim] Adverse Reaction (Unknown, Verified 08/07/22 10:06) trimethoprim [From Bactrim] Adverse Reaction (Unknown, Verified 08/07/22 10:06) - Review of Systems ROS: No change since H&P - Vital Signs and I&O's Vital Signs: Vital Signs Temperature 98 F Temperature 98 F Temperature 97.9 F Temperature 97.9 F Temperature 97.4 F Temperature 97.0 F Pulse Rate [Right] 64 Pulse Rate [Right] 66 Pulse Rate [Right] 62 Pulse Rate [Right] 60 Pulse Rate [Right] 71 Pulse Rate [Right] 75 Respiratory Rate 18 Respiratory Rate 18 Respiratory Rate 18 Respiratory Rate 18 Respiratory Rate 18 Respiratory Rate 18 Blood Pressure [Left Arm] 125/80 Blood Pressure [Right Arm] 163/72 Blood Pressure [Right Arm] 173/77 Blood Pressure [Right Arm] 162/72 Blood Pressure [Right Arm] 156/69 Blood Pressure [Right Arm] 135/65 O2 Sat by Pulse Oximetry 97 O2 Sat by Pulse Oximetry 98 O2 Sat by Pulse Oximetry 98 O2 Sat by Pulse Oximetry 97 O2 Sat by Pulse Oximetry 98 O2 Sat by Pulse Oximetry 94 Intake and Output: Intake & Output 08/28/23 08/29/23 08/30/23 08/31/23 11:59 11:59 11:59 11:59 Intake Total 733 / 733 2181 / 2181 Output Total 1190 / 1190 800 / 800 Balance -457 / -457 1381 / 1381 - Physical Exam Oriented: Normal Eyes: Normal Ear: Normal Nose: Normal Throat: Normal Respiratory: Diminished Cardiovascular: Normal : Normal Auscultation: Bowel Sounds: Normal Palpation: Normal Tenderness: Normal Skin: Decreased [place]ur Musculoskeletal: Normal Psychiatric: Normal Mood Description: Calm Affect: Normal Speech Pattern: Aphasic - Laboratory and Diagnostics Result Diagrams: 08/30/23 05:15 08/30/23 05:15 Labs: 08/28/23 15:57 Urine,Catheterized Urine Culture - Final Escherichia Coli Laboratory WBC 10.3 X10^3/uL (3.6-10.0) H 08/30/23 05:15 RBC 4.21 X10^6/uL (3.5-5.4) 08/30/23 05:15 Hgb 12.8 g/dL (12.0-16.0) 08/30/23 05:15 Hct 38.4 % (36.0-47.0) 08/30/23 05:15 MCV 91.2 fL (80.0-100.0) 08/30/23 05:15 MCH 30.5 pg (27.0-34.0) 08/30/23 05:15 MCHC 33.4 g/dL (33.0-35.0) 08/30/23 05:15 RDW 15.4 % (11.6-16.5) 08/30/23 05:15 Plt Count 170 X10^3/uL (150.0-450.0) 08/30/23 05:15 MPV 8.4 fL (7.4-11.0) 08/30/23 05:15 Neut % (Auto) 68.9 % (42.0-75.0) 08/30/23 05:15 Lymph % (Auto) 18.6 % (21.0-51.0) L 08/30/23 05:15 [place] % (Auto) 10.6 % (0.0-13.0) 08/30/23 05:15 Eos % (Auto) 1.3 % (0.9-2.9) 08/30/23 05:15 Baso % (Auto) 0.6 % (0.2-1.0) 08/30/23 05:15 Neut # (Auto) 7.1 x10^3/uL (2.2-4.8) H 08/30/23 05:15 Lymph # (Auto) 1.9 X10^3/uL (1.3-2.9) 08/30/23 05:15 [place] # (Auto) 1.1 x10^3/uL (0.3-0.8) H 08/30/23 05:15 Eos # (Auto) 0.1 x10^3/uL (0.0-0.2) 08/30/23 05:15 Baso # (Auto) 0.1 X10^3/uL (0.0-0.1) 08/30/23 05:15 Absolute Nucleated RBC 0.1 /100WBC 08/30/23 05:15 Sodium 135 mmol/L (136-145) L 08/30/23 05:15 Corrected Sodium TNP 08/30/23 05:15 Potassium 3.7 mmol/L (3.5-5.1) 08/30/23 05:15 Chloride 101 mmol/L (98-107) 08/30/23 05:15 Carbon Dioxide 28.1 mmol/L (21-32) 08/30/23 05:15 BUN 21 mg/dL (7-18) H 08/30/23 05:15 Creatinine 1.34 mg/dL (0.55-1.02) H 08/30/23 05:15 Est GFR (MDRD) Af Amer 48 (>60) L 08/30/23 05:15 Est GFR (MDRD) Non-Af 40 (>60) L 08/30/23 05:15 Glucose 109 mg/dL (65-99) H 08/30/23 05:15 POC Glucose (mg/dL) 128 mg/dL (65-99) H 08/30/23 11:30 Lactic Acid 1.6 mmol/L (0.4-2.0) 08/28/23 14:56 Calcium 8.3 mg/dL (8.5-10.1) L 08/30/23 05:15 Corrected Calcium 9.6 mg/dL (8.5-10.1) 08/30/23 05:15 Magnesium 1.9 mg/dL (2.0-2.9) L 08/30/23 05:15 Total Bilirubin 0.70 mg/dL (0.2-1.0) 08/30/23 05:15 AST 16 Units/L (15-37) 08/30/23 05:15 ALT < 6 Units/L (12-78) L 08/30/23 05:15 Alkaline Phosphatase 57 Units/L (46-116) 08/30/23 05:15 Total Protein 6.0 g/dL (6.4-8.2) L 08/30/23 05:15 Albumin 2.4 g/dL (3.4-5.0) L 08/30/23 05:15 Globulin 3.6 g/dL (2.5-4.5) 08/30/23 05:15 Albumin/Globulin Ratio 0.7 Ratio (1.1-2.1) L 08/30/23 05:15 Specimen Type Catherized urine 08/28/23 15:57 Urine Color Pale yellow (YELLOW) 08/28/23 15:57 Urine Appearance Slightly hazy (CLEAR) 08/28/23 15:57 Urine pH 5.0 (5.0 - 8.0) 08/28/23 15:57 Ur Specific [place] 1.020 (1.000-1.030) 08/28/23 15:57 Urine Protein 1+ (NEGATIVE) 08/28/23 15:57 Urine Glucose (UA) Negative (NEGATIVE) 08/28/23 15:57 Urine Ketones Negative (NEGATIVE) 08/28/23 15:57 Urine Blood 1+ (NEGATIVE) 08/28/23 15:57 Urine Nitrite Negative (NEGATIVE) 08/28/23 15:57 Urine Bilirubin Negative (NEGATIVE) 08/28/23 15:57 Urine Urobilinogen Normal (NORMAL) 08/28/23 15:57 Ur Leukocyte Esterase 1+ (NEGATIVE) 08/28/23 15:57 Urine RBC None seen /HPF (0-3) 08/28/23 15:57 Urine WBC 10-20 /HPF (0-5) A 08/28/23 15:57 Ur Squamous Epith Cells Rare /HPF (NEGATIVE) 08/28/23 15:57 Urine Bacteria 2+ /HPF (NEGATIVE) 08/28/23 15:57 Urine Mucus Rare /HPF (NEGATIVE) 08/28/23 15:57 Ur Culture Indicated? Yes/culture set up 08/28/23 15:57 - Plan (1) Acute UTI Status: Acute Plan: ADMIT, PT/OT, D51/2 NS AT 80 ML/HR, ROCEPHIN 1G IV DAILY, LOVENOX 30MG SC DAILY, OTBS ACHS, HUMULIN R SLIDING SCALE, RESUME HOME MEDS (2) Acute on chronic renal failure Status: Chronic Qualifiers: Acute renal failure type: unspecified Chronic kidney disease stage: unspecified stage Qualified Code(s): N17.9 - Acute kidney failure, unspecified; N18.9 - Chronic kidney disease, unspecified (3) AMS (altered mental status) Status: Acute Qualifiers: Altered mental status type: transient alteration of awareness Qualified Code(s): R40.4 - Transient alteration of awareness (4) Generalized weakness Status: Acute (5) Diabetes mellitus, type II Status: Chronic Qualifiers: Diabetes mellitus jail insulin use: without bed bug exterminator use Diabetes mellitus complication status: with kidney complications Diabetes mellitus complication detail: with chronic kidney disease Chronic kidney disease stage: stage 3 (moderate) Chronic kidney disease stage 3 subtype: stage 3b (GFR 30- 44) Qualified Code(s): E11.22 - Type 2 diabetes mellitus with diabetic chronic kidney disease; N18.32 - Chronic kidney disease, stage 3b Plan: OTBS ACHS, HUMULIN R SLIDING SCALE, RESUME AMARYL (6) Parkinson disease Status: Chronic Qualifiers: Dyskinesia presence: unspecified whether dyskinesia Fluctuating manifestations: unspecified whether manifestations fluctuate Qualified Code(s): G20.A1 - Parkinson's disease without dyskinesia, without mention of fluctuations Plan: RESUME SINEMET (7) GERD (gastroesophageal reflux disease) Status: Chronic Qualifiers: Esophagitis presence: esophagitis presence not specified Qualified Code(s): K21.9 - Gastro-esophageal reflux disease without esophagitis Plan: RESUME PRIOLOSEC (8) HTN (hypertension) Status: Chronic Qualifiers: Hypertension type: primary hypertension Qualified Code(s): I10 - Essential (primary) hypertension Plan: RESUME TOPROL XL
[2023-08-30] MEDS ORDERED: NORVASC TAB 10 MG PO PRN (14:33)
[2023-08-30] MEDS ORDERED: STERILE WATER IRRIGATION IR ONE (14:45)
[2023-08-30] MEDS ORDERED: K-RIDER 10 MEQ/NS 100 ML 10 MEQ/100 ML BAG IV ONE (16:00)
[2023-08-30] MEDS: SNACK - Diabetic Appropriate PO SCH (20:37)
[2023-08-31] MEDS: MIRAPEX TAB 1 MG PO SCH ×3 (05:09→21:00)
[2023-08-31] MEDS: SINEMET (PLAIN) 25/250 MG PO SCH ×3 (05:10→23:34)
[2023-08-31 06:55] LABS: RED BLOOD COUNT 4.06 X10^6/uL (3.5-5.4)
[2023-08-31 06:56] LABS: HEMATOCRIT 36.7 % (36.0-47.0); HEMOGLOBIN 12.4 g/dL (12.0-16.0); MEAN CORPUSCULAR HEMOGLOBIN 30.5 pg (27.0-34.0); MEAN CORPUSCULAR VOLUME 90.2 fL (80.0-100.0)
[2023-08-31 06:57] LABS: BASOPHILS # (AUTO) 0.1 X10^3/uL (0.0-0.1); BASOPHILS % (AUTO) 0.8 % (0.2-1.0); EOSINOPHILS # (AUTO) 0.1 x10^3/uL (0.0-0.2); EOSINOPHILS % (AUTO) 1.5 % (0.9-2.9); LYMPHOCYTES # (AUTO) 1.5 X10^3/uL (1.3-2.9); LYMPHOCYTES % (AUTO) 16.3 % (21.0-51.0); MEAN CORPUSCULAR HGB CONC 33.8 g/dL (33.0-35.0); MEAN PLATELET VOLUME 8.2 fL (7.4-11.0); MONOCYTES # (AUTO) 0.8 x10^3/uL (0.3-0.8); MONOCYTES % (AUTO) 9.4 % (0.0-13.0); NEUTROPHILS # (AUTO) 6.5 x10^3/uL (2.2-4.8); PLATELET COUNT 180 X10^3/uL (150.0-450.0); RED CELL DISTRIBUTION WIDTH 15.2 % (11.6-16.5)
[2023-08-31 07:04] LABS: ALANINE AMINOTRANSFERASE < 6 Units/L (12-78); ALBUMIN 2.2 g/dL (3.4-5.0); ALKALINE PHOSPHATASE 56 Units/L (46-116); ASPARTATE AMINO TRANSFERASE 15 Units/L (15-37); BLOOD UREA NITROGEN 15 mg/dL (7-18); CALCIUM 7.7 mg/dL (8.5-10.1); CARBON DIOXIDE 25.9 mmol/L (21-32); CHLORIDE 100 mmol/L (98-107); COR CA(FOR HYPOALB) 9.1 mg/dL (8.5-10.1); COR NA(FOR HYPERGLY) 132 mmol/L (136-145); CREATININE 1.17 mg/dL (0.55-1.02); GLUCOSE 156 mg/dL (65-99); MAGNESIUM 1.8 mg/dL (2.0-2.9); POTASSIUM 3.5 mmol/L (3.5-5.1); SODIUM 131 mmol/L (136-145); TOTAL PROTEIN 5.8 g/dL (6.4-8.2); eGFR NON BLACK RACES 46 (>60)
[2023-08-31] MEDS ORDERED: K-DUR TAB 20 MEQ PO SCH (08:00)
[2023-08-31] MEDS ORDERED: CONSULT PHARMACY - POTASSIUM & MAGNESIUM XX SCH ×2 (08:00→20:00)
[2023-08-31] MEDS: ROCEPHIN VIAL 1 GRAM 1 G in NS 100 ML IV 100 ML IV SCH (09:24)
[2023-08-31] MEDS: LOVENOX INJ 40 MG SYR SC SCH (09:25)
[2023-08-31] MEDS: LOPRESSOR TAB 25 MG PO SCH ×3 (09:25→23:15)
[2023-08-31] MEDS: COLACE SYRUP 100 MG UDC PO SCH (09:25)
[2023-08-31] MEDS: AMARYL TAB 4 MG PO SCH ×2 (09:25→23:14)
[2023-08-31] MEDS: ASPIRIN 81 MG CHEWTAB PO SCH (09:25)
[2023-08-31] MEDS: PROTONIX INJ 40 MG VIAL IVP SCH (09:25)
[2023-08-31] MEDS: CELEXA PO SCH (09:25)
[2023-08-31] MEDS: ROBITUSSIN DM PO SCH ×5 (09:25→23:33)
[2023-08-31] MEDS: MAG-OX TAB PO SCH ×5 (09:26→23:13)
--- NOTE | 2023-08-31 17:08 | PCM.PROG ---
Progress Note - Progress Note for Day of Date of Exam: 08/31/23 - Subjective Subjective: IS CURRENTLY INPATIENT STATUS FOR TREATMENT OF E.COLI UTI, ACUTE ON CHRONIC RENAL FAILURE, DEHYDRATION, AMS, AND GENERALIZED WEAKNESS. TODAY, SHE IS ALERT AND ORIENTED, LYING IN BED ON MORNING ROUNDS. SHE CONTINUES WITH COMPLAINTS OF GENERALIZED WEAKNESS THIS MORNING. SHE DOES ADMIT TO SLIGHT IMPROVEMENT IN SYMPTOMS SINCE ADMISSION. STAFF REPORTS THAT SHE HAS AMBULATED IN ROOM WITH ASSISTANCE. HER PMH INCLUDES: CAD, HTN, DYSLIPIDEMIA, DM II, HYPOTHYROIDISM, ANEMIA, GERD, ARTHRITIS, KIDNEY STONES, SLEEP APNEA, CHF, HYSTERECTOMY, MASTECTOMY, BOWEL RESECTION, AND CARDIAC STENTS. ON EXAMINATION TODAY, HEART IS REGULAR IN RATE AND RHYTHM. BILATERAL LUNGS ARE NOTED WITH DIMINISHED LUNG SOUNDS THROUGHOUT. ABDOMEN IS ROUND, SOFT, AND NON-TENDER WITH NORMAL BOWEL SOUNDS NOTED IN ALL QUADRANTS. NO UPPER OR LOWER EXTREMITY EDEMA NOTED. HER VITALS THIS MORNING WERE 98.4-65-18-93%-146/71. SHE IS CURRENTLY ON ROOM AIR. LABS WERE OBTAINED. WBC 9.0, RBC 4.06, HGB 12.4, HCT 36.7, PLT COUNT 180, SODIUM 131, POTASSIUM 3.5, CHLORIDE 100, CARBON DIOXIDE 25.9, BUN 15, CREATININE 1.17, GLUCOSE 156, CALCIUM 7.7, MAGNESIUM 1.8, TOTAL BILI 0.70, AST 15, ALT <6, ALK PHOS 56, TOTAL PROTEIN 5.8, ALBUMIN 2.2. URINE CULTURE POSITIVE FOR GROWTH OF E.COLI. BLOOD CULTURES ARE PENDING. SHE IS CURRENTLY RECEIVING D5 NS AT 80 ML/HR, ROCEPHIN 1G IV DAILY, LOVENOX 30MG SC DAILY, OTBS ACHS, HUMULI N R SLIDING SCALE, AND HER HOME MEDICATIONS WERE RESUMED. HOME MEDICATIONS INCLUDE: ECOTRIN, TESSALON PERLES, SINEMET, CELEXA, COLACE, PEPCID, AMARYL, TOPROL XL, PRILOSEC, AND MIRAPEX. OTHERWISE, WE PLAN TO FOLLOW-UP WITH AM LABS AND CONTINUE TO MONITOR. WE WILL CONTINUE WITH CURRENT PLAN OF CARE TODAY. WE WILL HAVE PHYSICAL THERAPY WORK WITH HER TODAY. OTHERWISE, WE WILL FOLLOW-UP WITH AM LABS AND CHEST XRAY AND CONTINUE TO MONITOR. TIME SPENT ON CLINICAL ASSESSMENT, REVIWING LABS AND IMAGING, DECISION MAKING, AND DOCUMENTATION GREATER THAN 45 MINUTES. - Past Medical Family Social History Past Med/Fam/Surg Hx: No changes since H&P Allergies: Allergies adhesive tape Allergy (Unknown, Verified 05/03/19 15:13) latex Allergy (Unknown, Verified 08/07/22 10:06) sulfamethoxazole [From Bactrim] Adverse Reaction (Unknown, Verified 08/07/22 10:06) trimethoprim [From Bactrim] Adverse Reaction (Unknown, Verified 08/07/22 10:06) - Review of Systems ROS: No change since H&P - Vital Signs and I&O's Vital Signs: Vital Signs Temperature 97.2 F Temperature 97.1 F Pulse Rate [Right] 78 Pulse Rate [Right] 59 Respiratory Rate 18 Respiratory Rate 18 Blood Pressure [Right Arm] 156/83 Blood Pressure [Right Arm] 158/82 O2 Sat by Pulse Oximetry 95 O2 Sat by Pulse Oximetry 96 Intake and Output: Intake & Output 08/29/23 08/30/23 08/31/23 09/01/23 11:59 11:59 11:59 11:59 Intake Total 733 / 733 2181 / 2181 1894 / 1894 910 / 910 Output Total 1190 / 1190 800 / 800 820 / 820 550 / 550 Balance -457 / -457 1381 / 1381 1074 / 1074 360 / 360 - Physical Exam Oriented: Normal Eyes: Normal Ear: Normal Nose: Normal Throat: Normal Respiratory: Diminished Cardiovascular: Normal : Normal Auscultation: Bowel Sounds: Normal Palpation: Normal Tenderness: Normal Skin: Decreased Turgur Musculoskeletal: Normal Psychiatric: Normal Mood Description: Calm Affect: Normal Speech Pattern: Delayed - Laboratory and Diagnostics Result Diagrams: 08/31/23 05:36 08/31/23 06:38 Labs: 08/28/23 14:56 Blood Blood Culture - Preliminary 08/28/23 14:49 Blood Blood Culture - Preliminary 08/28/23 15:57 Urine,Catheterized Urine Culture - Final Escherichia Coli Laboratory WBC 9.0 X10^3/uL (3.6-10.0) 08/31/23 05:36 RBC 4.06 X10^6/uL (3.5-5.4) 08/31/23 05:36 Hgb 12.4 g/dL (12.0-16.0) 08/31/23 05:36 Hct 36.7 % (36.0-47.0) 08/31/23 05:36 MCV 90.2 fL (80.0-100.0) 08/31/23 05:36 MCH 30.5 pg (27.0-34.0) 08/31/23 05:36 MCHC 33.8 g/dL (33.0-35.0) 08/31/23 05:36 RDW 15.2 % (11.6-16.5) 08/31/23 05:36 Plt Count 180 X10^3/uL (150.0-450.0) 08/31/23 05:36 MPV 8.2 fL (7.4-11.0) 08/31/23 05:36 Neut % (Auto) 72.0 % (42.0-75.0) 08/31/23 05:36 Lymph % (Auto) 16.3 % (21.0-51.0) L 08/31/23 05:36 Ashley % (Auto) 9.4 % (0.0-13.0) 08/31/23 05:36 Eos % (Auto) 1.5 % (0.9-2.9) 08/31/23 05:36 Baso % (Auto) 0.8 % (0.2-1.0) 08/31/23 05:36 Neut # (Auto) 6.5 x10^3/uL (2.2-4.8) H 08/31/23 05:36 Lymph # (Auto) 1.5 X10^3/uL (1.3-2.9) 08/31/23 05:36 Ashley # (Auto) 0.8 x10^3/uL (0.3-0.8) 08/31/23 05:36 Eos # (Auto) 0.1 x10^3/uL (0.0-0.2) 08/31/23 05:36 Baso # (Auto) 0.1 X10^3/uL (0.0-0.1) 08/31/23 05:36 Absolute Nucleated RBC 0.0 /100WBC 08/31/23 05:36 Sodium 131 mmol/L (136-145) L 08/31/23 06:38 Corrected Sodium 132 mmol/L (136-145) L 08/31/23 06:38 Potassium 3.5 mmol/L (3.5-5.1) 08/31/23 06:38 Chloride 100 mmol/L (98-107) 08/31/23 06:38 Carbon Dioxide 25.9 mmol/L (21-32) 08/31/23 06:38 BUN 15 mg/dL (7-18) 08/31/23 06:38 Creatinine 1.17 mg/dL (0.55-1.02) H 08/31/23 06:38 Est GFR (MDRD) Af Amer 56 (>60) L 08/31/23 06:38 Est GFR (MDRD) Non-Af 46 (>60) L 08/31/23 06:38 Glucose 156 mg/dL (65-99) H 08/31/23 06:38 POC Glucose (mg/dL) 174 mg/dL (65-99) H 08/31/23 16:08 Lactic Acid 1.6 mmol/L (0.4-2.0) 08/28/23 14:56 Calcium 7.7 mg/dL (8.5-10.1) L 08/31/23 06:38 Corrected Calcium 9.1 mg/dL (8.5-10.1) 08/31/23 06:38 Magnesium 1.8 mg/dL (2.0-2.9) L 08/31/23 06:38 Total Bilirubin 0.70 mg/dL (0.2-1.0) 08/31/23 06:38 AST 15 Units/L (15-37) 08/31/23 06:38 ALT < 6 Units/L (12-78) L 08/31/23 06:38 Alkaline Phosphatase 56 Units/L (46-116) 08/31/23 06:38 Total Protein 5.8 g/dL (6.4-8.2) L 08/31/23 06:38 Albumin 2.2 g/dL (3.4-5.0) L 08/31/23 06:38 Globulin 3.6 g/dL (2.5-4.5) 08/31/23 06:38 Albumin/Globulin Ratio 0.6 Ratio (1.1-2.1) L 08/31/23 06:38 Specimen Type Catherized urine 08/28/23 15:57 Urine Color Pale yellow (YELLOW) 08/28/23 15:57 Urine Appearance Slightly hazy (CLEAR) 08/28/23 15:57 Urine pH 5.0 (5.0 - 8.0) 08/28/23 15:57 Ur Specific [place] 1.020 (1.000-1.030) 08/28/23 15:57 Urine Protein 1+ (NEGATIVE) 08/28/23 15:57 Urine Glucose (UA) Negative (NEGATIVE) 08/28/23 15:57 Urine Ketones Negative (NEGATIVE) 08/28/23 15:57 Urine Blood 1+ (NEGATIVE) 08/28/23 15:57 Urine Nitrite Negative (NEGATIVE) 08/28/23 15:57 Urine Bilirubin Negative (NEGATIVE) 08/28/23 15:57 Urine Urobilinogen Normal (NORMAL) 08/28/23 15:57 Ur Leukocyte Esterase 1+ (NEGATIVE) 08/28/23 15:57 Urine RBC None seen /HPF (0-3) 08/28/23 15:57 Urine WBC 10-20 /HPF (0-5) A 08/28/23 15:57 Ur Squamous Epith Cells Rare /HPF (NEGATIVE) 08/28/23 15:57 Urine Bacteria 2+ /HPF (NEGATIVE) 08/28/23 15:57 Urine Mucus Rare /HPF (NEGATIVE) 08/28/23 15:57 Ur Culture Indicated? Yes/culture set up 08/28/23 15:57 - Plan (1) Acute UTI Status: Acute Plan: PT/OT, D51/2 NS AT 80 ML/HR, ROCEPHIN 1G IV DAILY, LOVENOX 30MG SC DAILY, OTBS ACHS, HUMULIN R SLIDING SCALE, RESUME HOME MEDS (2) Acute on chronic renal failure Status: Chronic Qualifiers: Acute renal failure type: unspecified Chronic kidney disease stage: unspecified stage Qualified Code(s): N17.9 - Acute kidney failure, unspecified; N18.9 - Chronic kidney disease, unspecified (3) AMS (altered mental status) Status: Acute Qualifiers: Altered mental status type: transient alteration of awareness Qualified Code(s): R40.4 - Transient alteration of awareness (4) Generalized weakness Status: Acute (5) Diabetes mellitus, type II Status: Chronic Qualifiers: 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: without petroleum terminal 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 operator use Diabetes mellitus complication status: with kidney complications Diabetes mellitus complication detail: with chronic kidney disease Chronic kidney disease stage: stage 3 (moderate) Chronic kidney disease stage 3 subtype: stage 3b (GFR 30- 44) Qualified Code(s): E11.22 - Type 2 diabetes mellitus with diabetic chronic kidney disease; N18.32 - Chronic kidney disease, stage 3b Plan: OTBS ACHS, HUMULIN R SLIDING SCALE, RESUME AMARYL (6) Parkinson disease Status: Chronic Qualifiers: Dyskinesia presence: unspecified whether dyskinesia Fluctuating manifestations: unspecified whether manifestations fluctuate Qualified Code(s): G20.A1 - Parkinson's disease without dyskinesia, without mention of fluctuations Plan: RESUME SINEMET (7) GERD (gastroesophageal reflux disease) Status: Chronic Qualifiers: Esophagitis presence: esophagitis presence not specified Qualified Code(s): K21.9 - Gastro-esophageal reflux disease without esophagitis Plan: RESUME PRIOLOSEC (8) HTN (hypertension) Status: Chronic Qualifiers: Hypertension type: primary hypertension Qualified Code(s): I10 - Essential (primary) hypertension Plan: RESUME TOPROL XL
[2023-08-31] MEDS: SNACK - Diabetic Appropriate PO SCH (21:00)
[2023-08-31] MEDS ORDERED: MAG-OX TAB ONE (23:11)
[2023-09-01] MEDS: D5 1/2 NS 1,000 ML 1,000 ML IV SCH ×2 (02:04→14:36)
[2023-09-01] MEDS: MIRAPEX TAB 1 MG PO SCH ×2 (05:35→16:30)
[2023-09-01 05:36] LABS: BASOPHILS % (AUTO) 0.5 % (0.2-1.0); EOSINOPHILS # (AUTO) 0.1 x10^3/uL (0.0-0.2); EOSINOPHILS % (AUTO) 1.6 % (0.9-2.9); HEMATOCRIT 37.9 % (36.0-47.0); HEMOGLOBIN 12.7 g/dL (12.0-16.0); LYMPHOCYTES # (AUTO) 1.8 X10^3/uL (1.3-2.9); LYMPHOCYTES % (AUTO) 20.9 % (21.0-51.0); MEAN CORPUSCULAR HEMOGLOBIN 30.3 pg (27.0-34.0); MEAN CORPUSCULAR HGB CONC 33.5 g/dL (33.0-35.0); MEAN CORPUSCULAR VOLUME 90.5 fL (80.0-100.0); MEAN PLATELET VOLUME 8.4 fL (7.4-11.0); MONOCYTES # (AUTO) 0.9 x10^3/uL (0.3-0.8); MONOCYTES % (AUTO) 11.1 % (0.0-13.0); NEUTROPHILS # (AUTO) 5.6 x10^3/uL (2.2-4.8); NEUTROPHILS % (AUTO) 65.9 % (42.0-75.0); PLATELET COUNT 227 X10^3/uL (150.0-450.0); RED BLOOD COUNT 4.19 X10^6/uL (3.5-5.4); RED CELL DISTRIBUTION WIDTH 15.1 % (11.6-16.5); WHITE BLOOD COUNT 8.5 X10^3/uL (3.6-10.0)
[2023-09-01] MEDS: SINEMET (PLAIN) 25/250 MG PO SCH ×2 (05:36→16:30)
[2023-09-01 05:56] LABS: ALANINE AMINOTRANSFERASE < 6 Units/L (12-78); ALBUMIN 2.4 g/dL (3.4-5.0); ALKALINE PHOSPHATASE 55 Units/L (46-116); ASPARTATE AMINO TRANSFERASE 17 Units/L (15-37); BLOOD UREA NITROGEN 12 mg/dL (7-18); CALCIUM 8.6 mg/dL (8.5-10.1); CARBON DIOXIDE 28.2 mmol/L (21-32); CHLORIDE 100 mmol/L (98-107); COR CA(FOR HYPOALB) 9.9 mg/dL (8.5-10.1); COR NA(FOR HYPERGLY) 134 mmol/L (136-145); CREATININE 1.17 mg/dL (0.55-1.02); GLUCOSE 114 mg/dL (65-99); POTASSIUM 3.7 mmol/L (3.5-5.1); SODIUM 134 mmol/L (136-145); TOTAL PROTEIN 6.2 g/dL (6.4-8.2); eGFR NON BLACK RACES 46 (>60)
[2023-09-01] MEDS: NovoLIN R (or HumuLIN R) SUBCUT PRN (06:13)
[2023-09-01] MEDS ORDERED: CONSULT PHARMACY - POTASSIUM & MAGNESIUM XX SCH (08:00)
[2023-09-01] MEDS: LOPRESSOR TAB 25 MG PO SCH (09:14)
[2023-09-01] MEDS: ASPIRIN 81 MG CHEWTAB PO SCH (09:14)
[2023-09-01] MEDS: CELEXA PO SCH (09:14)
[2023-09-01] MEDS: AMARYL TAB 4 MG PO SCH (09:14)
[2023-09-01] MEDS: ROBITUSSIN DM PO SCH ×4 (09:15→17:15)
[2023-09-01] MEDS: LOVENOX INJ 40 MG SYR SC SCH (09:15)
[2023-09-01] MEDS: PROTONIX INJ 40 MG VIAL IVP SCH (09:15)
[2023-09-01] MEDS: COLACE SYRUP 100 MG UDC PO SCH ×2 (09:15→11:00)
[2023-09-01] MEDS: ROCEPHIN VIAL 1 GRAM 1 G in NS 100 ML IV 100 ML IV SCH (09:15)
[2023-09-01] MEDS ORDERED: TobraDEX OPHTH OPHTH 1 DOSE LEFTEYE SCH (11:00)
[2023-09-01] MEDS: TobraDEX OPHTH OPHTH 1 DOSE LEFTEYE SCH (12:17)
[2023-09-01] MEDS ORDERED: LOPRESSOR INJ 5 MG AMP IVP ONE (16:45)
[2023-09-01] MEDS: APRESOLINE INJ 20 MG VIAL IVP PRN (21:03)
[2023-09-02] MEDS: TobraDEX OPHTH OPHTH 1 DOSE LEFTEYE SCH ×3 (00:25→20:35)
[2023-09-02] MEDS ORDERED: APRESOLINE INJ 20 MG VIAL IVP ONE (03:00)
[2023-09-02] MEDS: D5 1/2 NS 1,000 ML 1,000 ML IV SCH ×5 (04:34→23:36)
[2023-09-02] MEDS: AMARYL TAB 4 MG PO SCH ×3 (04:35→20:33)
[2023-09-02] MEDS: SNACK - Diabetic Appropriate PO SCH ×2 (04:35→21:06)
[2023-09-02] MEDS: LOPRESSOR TAB 25 MG PO SCH ×3 (04:35→20:34)
[2023-09-02] MEDS: MIRAPEX TAB 1 MG PO SCH ×4 (04:39→21:07)
[2023-09-02] MEDS: ROBITUSSIN DM PO SCH ×5 (04:39→20:34)
[2023-09-02] MEDS: SINEMET (PLAIN) 25/250 MG PO SCH ×4 (04:40→21:07)
[2023-09-02 06:05] LABS: BASOPHILS # (AUTO) 0.1 X10^3/uL (0.0-0.1); BASOPHILS % (AUTO) 0.6 % (0.2-1.0); EOSINOPHILS # (AUTO) 0.1 x10^3/uL (0.0-0.2); EOSINOPHILS % (AUTO) 1.3 % (0.9-2.9); HEMATOCRIT 40.7 % (36.0-47.0); HEMOGLOBIN 13.6 g/dL (12.0-16.0); LYMPHOCYTES # (AUTO) 1.5 X10^3/uL (1.3-2.9); LYMPHOCYTES % (AUTO) 17.4 % (21.0-51.0); MEAN CORPUSCULAR HEMOGLOBIN 30.3 pg (27.0-34.0); MEAN CORPUSCULAR HGB CONC 33.4 g/dL (33.0-35.0); MEAN CORPUSCULAR VOLUME 90.7 fL (80.0-100.0); MEAN PLATELET VOLUME 8.2 fL (7.4-11.0); MONOCYTES # (AUTO) 0.9 x10^3/uL (0.3-0.8); MONOCYTES % (AUTO) 10.2 % (0.0-13.0); NEUTROPHILS # (AUTO) 6.1 x10^3/uL (2.2-4.8); NEUTROPHILS % (AUTO) 70.5 % (42.0-75.0); PLATELET COUNT 272 X10^3/uL (150.0-450.0); RED BLOOD COUNT 4.49 X10^6/uL (3.5-5.4); RED CELL DISTRIBUTION WIDTH 15.5 % (11.6-16.5); WHITE BLOOD COUNT 8.7 X10^3/uL (3.6-10.0)
[2023-09-02 06:27] LABS: ALBUMIN 2.6 g/dL (3.4-5.0); CALCIUM 8.4 mg/dL (8.5-10.1); CARBON DIOXIDE 21.8 mmol/L (21-32); COR CA(FOR HYPOALB) 9.5 mg/dL (8.5-10.1); CREATININE 1.13 mg/dL (0.55-1.02); POTASSIUM 3.5 mmol/L (3.5-5.1); TOTAL PROTEIN 6.6 g/dL (6.4-8.2)
[2023-09-02] MEDS ORDERED: CONSULT PHARMACY - POTASSIUM & MAGNESIUM XX SCH (07:00)
[2023-09-02] MEDS ORDERED: KLOR-CON PO SCH (09:00)
[2023-09-02] MEDS: PROTONIX INJ 40 MG VIAL IVP SCH (09:16)
[2023-09-02] MEDS: ROCEPHIN VIAL 1 GRAM 1 G in NS 100 ML IV 100 ML IV SCH (09:16)
[2023-09-02] MEDS: LOVENOX INJ 40 MG SYR SC SCH (09:17)
[2023-09-02] MEDS: APRESOLINE INJ 20 MG VIAL IVP PRN (09:34)
[2023-09-02] MEDS: CELEXA PO SCH (12:10)
[2023-09-02] MEDS: ASPIRIN 81 MG CHEWTAB PO SCH (12:10)
[2023-09-02] MEDS: COLACE SYRUP 100 MG UDC PO SCH (12:11)
[2023-09-03] MEDS: D5 1/2 NS 1,000 ML 1,000 ML IV SCH ×3 (05:14→18:19)
[2023-09-03 05:23] LABS: BASOPHILS # (AUTO) 0.1 X10^3/uL (0.0-0.1); BASOPHILS % (AUTO) 0.9 % (0.2-1.0); EOSINOPHILS # (AUTO) 0.1 x10^3/uL (0.0-0.2); EOSINOPHILS % (AUTO) 1.4 % (0.9-2.9); HEMATOCRIT 36.9 % (36.0-47.0); HEMOGLOBIN 12.5 g/dL (12.0-16.0); LYMPHOCYTES # (AUTO) 1.4 X10^3/uL (1.3-2.9); LYMPHOCYTES % (AUTO) 17.4 % (21.0-51.0); MEAN CORPUSCULAR HEMOGLOBIN 30.5 pg (27.0-34.0); MEAN CORPUSCULAR HGB CONC 33.7 g/dL (33.0-35.0); MEAN CORPUSCULAR VOLUME 90.5 fL (80.0-100.0); MONOCYTES # (AUTO) 0.9 x10^3/uL (0.3-0.8); MONOCYTES % (AUTO) 10.5 % (0.0-13.0); NEUTROPHILS # (AUTO) 5.8 x10^3/uL (2.2-4.8); NEUTROPHILS % (AUTO) 69.8 % (42.0-75.0); PLATELET COUNT 279 X10^3/uL (150.0-450.0); RED BLOOD COUNT 4.08 X10^6/uL (3.5-5.4); RED CELL DISTRIBUTION WIDTH 15.4 % (11.6-16.5); WHITE BLOOD COUNT 8.2 X10^3/uL (3.6-10.0)
[2023-09-03] MEDS: MIRAPEX TAB 1 MG PO SCH ×3 (05:38→21:21)
[2023-09-03] MEDS: SINEMET (PLAIN) 25/250 MG PO SCH ×3 (05:38→21:21)
[2023-09-03 05:40] LABS: ALBUMIN 2.4 g/dL (3.4-5.0); ALKALINE PHOSPHATASE 52 Units/L (46-116); ASPARTATE AMINO TRANSFERASE 17 Units/L (15-37); BLOOD UREA NITROGEN 10 mg/dL (7-18); CALCIUM 8.1 mg/dL (8.5-10.1); CARBON DIOXIDE 24.3 mmol/L (21-32); CHLORIDE 101 mmol/L (98-107); COR CA(FOR HYPOALB) 9.4 mg/dL (8.5-10.1); COR NA(FOR HYPERGLY) 133 mmol/L (136-145); CREATININE 1.18 mg/dL (0.55-1.02); GLUCOSE 116 mg/dL (65-99); POTASSIUM 3.6 mmol/L (3.5-5.1); SODIUM 133 mmol/L (136-145); TOTAL PROTEIN 5.9 g/dL (6.4-8.2); eGFR NON BLACK RACES 46 (>60)
[2023-09-03 05:50] LABS: ALANINE AMINOTRANSFERASE < 6 Units/L (12-78)
[2023-09-03] MEDS ORDERED: CONSULT PHARMACY - POTASSIUM & MAGNESIUM XX SCH (06:00)
[2023-09-03] MEDS ORDERED: KLOR-CON PO SCH (09:00)
[2023-09-03] MEDS: TobraDEX OPHTH OPHTH 1 DOSE LEFTEYE SCH ×2 (09:30→20:21)
[2023-09-03] MEDS: ROCEPHIN VIAL 1 GRAM 1 G in NS 100 ML IV 100 ML IV SCH (10:12)
[2023-09-03] MEDS: PROTONIX INJ 40 MG VIAL IVP SCH (10:12)
[2023-09-03] MEDS: LOPRESSOR TAB 25 MG PO SCH ×2 (10:13→20:14)
[2023-09-03] MEDS: ROBITUSSIN DM PO SCH ×4 (10:13→20:13)
[2023-09-03] MEDS: ASPIRIN 81 MG CHEWTAB PO SCH (10:14)
[2023-09-03] MEDS: CELEXA PO SCH (10:14)
[2023-09-03] MEDS: AMARYL TAB 4 MG PO SCH ×2 (10:14→20:14)
[2023-09-03] MEDS: COLACE SYRUP 100 MG UDC PO SCH (10:15)
[2023-09-03] MEDS: LOVENOX INJ 40 MG SYR SC SCH (10:15)
[2023-09-03] MEDS ORDERED: TYLENOL 325 MG TAB PO PRN (12:56)
[2023-09-03] MEDS ORDERED: TYLENOL 325 MG TAB PO ONE (12:58)
--- NOTE | 2023-09-03 13:16 | PCM.PROG ---
Progress Note Progress Note for Day of Date of Exam: 09/03/23 Subjective Subjective: Patient seen at bedside, no acute events overnight. Patient's at bedside. He states patient did not eat much this morning. She has been seen by speech and recommended pureed diet. Patient presented with weakness, dehydration and dysphagia. She had EGD on 08/30/23 which showed gastritis and esophageal dysmotility disorder. states she has not been talking much since the EGD. Dr Petit had discussed possible PEG tube placement for nutrition. She is also being treated for UTI with Rocephin. Labs/imaging reviewed -Hgb 12.5 K 3.6 BUN/Cr Plan: Continue hydration and current diet. Continue IV Rocephin. Replace electrolytes as needed. Continue home medications. Consider possible PEG tube placement for Tuesday if patient not tolerating PO intake. PT/OT as tolerated. Monitor AM labs. Past Medical Family Social History Past Med/Fam/Surg Hx: No changes since H&P Allergies: Allergies adhesive tape Allergy (Unknown, Verified 05/03/19 15:13) latex Allergy (Unknown, Verified 08/07/22 10:06) sulfamethoxazole [From Bactrim] Adverse Reaction (Unknown, Verified 08/07/22 10:06) trimethoprim [From Bactrim] Adverse Reaction (Unknown, Verified 08/07/22 10:06) Review of Systems ROS: No change since H&P Vital Signs and I&O's Vital Signs: Vital Signs Temperature 97.8 F Pulse Rate [Right] 70 Respiratory Rate 20 Blood Pressure [Left Arm] 164/80 O2 Sat by Pulse Oximetry 96 Intake and Output: Intake & Output 08/31/23 09/01/23 09/02/23 09/03/23 23:59 23:59 23:59 23:59 Intake Total 1528 / 1528 968 / 968 2507 / 2507 700 / 700 Output Total 1270 / 1270 950 / 950 500 / 500 600 / 600 Balance 258 / 258 2006 100 / 100 Physical Exam Oriented: Unable to test Eyes: Normal Ear: Normal Nose: Normal Throat: Normal Respiratory: Diminished Cardiovascular: Normal Auscultation: Bowel Sounds: Normal Tenderness: Normal Skin: Decreased Turgur Musculoskeletal: Normal Psychiatric: Normal Mood Description: Calm Affect: Normal Speech Pattern: Delayed Laboratory and Diagnostics 09/03/23 05:04 09/03/23 05:04 Labs: 08/28/23 14:49 Blood Blood Culture - Final 08/28/23 14:56 Blood Blood Culture - Final 08/28/23 15:57 Urine,Catheterized Urine Culture - Final Escherichia Coli Laboratory WBC 8.2 X10^3/uL (3.6-10.0) 09/03/23 05:04 RBC 4.08 X10^6/uL (3.5-5.4) 09/03/23 05:04 Hgb 12.5 g/dL (12.0-16.0) 09/03/23 05:04 Hct 36.9 % (36.0-47.0) 09/03/23 05:04 MCV 90.5 fL (80.0-100.0) 09/03/23 05:04 MCH 30.5 pg (27.0-34.0) 09/03/23 05:04 MCHC 33.7 g/dL (33.0-35.0) 09/03/23 05:04 RDW 15.4 % (11.6-16.5) 09/03/23 05:04 Plt Count 279 X10^3/uL (150.0-450.0) 09/03/23 05:04 MPV 8.0 fL (7.4-11.0) 09/03/23 05:04 Neut % (Auto) 69.8 % (42.0-75.0) 09/03/23 05:04 Lymph % (Auto) 17.4 % (21.0-51.0) L 09/03/23 05:04 [place] % (Auto) 10.5 % (0.0-13.0) 09/03/23 05:04 Eos % (Auto) 1.4 % (0.9-2.9) 09/03/23 05:04 Baso % (Auto) 0.9 % (0.2-1.0) 09/03/23 05:04 Neut # (Auto) 5.8 x10^3/uL (2.2-4.8) H 09/03/23 05:04 Lymph # (Auto) 1.4 X10^3/uL (1.3-2.9) 09/03/23 05:04 [place] # (Auto) 0.9 x10^3/uL (0.3-0.8) H 09/03/23 05:04 Eos # (Auto) 0.1 x10^3/uL (0.0-0.2) 09/03/23 05:04 Baso # (Auto) 0.1 X10^3/uL (0.0-0.1) 09/03/23 05:04 Absolute Nucleated RBC 0.0 /100WBC 09/03/23 05:04 Sodium 133 mmol/L (136-145) L 09/03/23 05:04 Corrected Sodium 133 mmol/L (136-145) L 09/03/23 05:04 Potassium 3.6 mmol/L (3.5-5.1) 09/03/23 05:04 Chloride 101 mmol/L (98-107) 09/03/23 05:04 Carbon Dioxide 24.3 mmol/L (21-32) 09/03/23 05:04 BUN 10 mg/dL (7-18) 09/03/23 05:04 Creatinine 1.18 mg/dL (0.55-1.02) H 09/03/23 05:04 Est GFR (MDRD) Af Amer 55 (>60) L 09/03/23 05:04 Est GFR (MDRD) Non-Af 46 (>60) L 09/03/23 05:04 Glucose 116 mg/dL (65-99) H 09/03/23 05:04 POC Glucose (mg/dL) 134 mg/dL (65-99) H 09/03/23 11:08 Lactic Acid 1.6 mmol/L (0.4-2.0) 08/28/23 14:56 Calcium 8.1 mg/dL (8.5-10.1) L 09/03/23 05:04 Corrected Calcium 9.4 mg/dL (8.5-10.1) 09/03/23 05:04 Magnesium 2.0 mg/dL (2.0-2.9) 09/03/23 05:04 Total Bilirubin 0.50 mg/dL (0.2-1.0) 09/03/23 05:04 AST 17 Units/L (15-37) 09/03/23 05:04 ALT < 6 Units/L (12-78) L 09/03/23 05:04 Alkaline Phosphatase 52 Units/L (46-116) 09/03/23 05:04 Total Protein 5.9 g/dL (6.4-8.2) L 09/03/23 05:04 Albumin 2.4 g/dL (3.4-5.0) L 09/03/23 05:04 Globulin 3.5 g/dL (2.5-4.5) 09/03/23 05:04 Albumin/Globulin Ratio 0.7 Ratio (1.1-2.1) L 09/03/23 05:04 Specimen Type Catherized urine 08/28/23 15:57 Urine Color Pale yellow (YELLOW) 08/28/23 15:57 Urine Appearance Slightly hazy (CLEAR) 08/28/23 15:57 Urine pH 5.0 (5.0 - 8.0) 08/28/23 15:57 Ur Specific [place] 1.020 (1.000-1.030) 08/28/23 15:57 Urine Protein 1+ (NEGATIVE) 08/28/23 15:57 Urine Glucose (UA) Negative (NEGATIVE) 08/28/23 15:57 Urine Ketones Negative (NEGATIVE) 08/28/23 15:57 Urine Blood 1+ (NEGATIVE) 08/28/23 15:57 Urine Nitrite Negative (NEGATIVE) 08/28/23 15:57 Urine Bilirubin Negative (NEGATIVE) 08/28/23 15:57 Urine Urobilinogen Normal (NORMAL) 08/28/23 15:57 Ur Leukocyte Esterase 1+ (NEGATIVE) 08/28/23 15:57 Urine RBC None seen /HPF (0-3) 08/28/23 15:57 Urine WBC 10-20 /HPF (0-5) A 08/28/23 15:57 Ur Squamous Epith Cells Rare /HPF (NEGATIVE) 08/28/23 15:57 Urine Bacteria 2+ /HPF (NEGATIVE) 08/28/23 15:57 Urine Mucus Rare /HPF (NEGATIVE) 08/28/23 15:57 Ur Culture Indicated? Yes/culture set up 08/28/23 15:57 Tissue Pathology See comment. 08/30/23 10:13 Plan (1) Acute UTI: Status: Acute (2) Acute on chronic renal failure: Status: Chronic Qualifiers: Acute renal failure type: unspecified Chronic kidney disease stage: unspecified stage Qualified Code(s): N17.9 - Acute kidney failure, unspecified; N18.9 - Chronic kidney disease, unspecified (3) AMS (altered mental status): Status: Acute Qualifiers: Altered mental status type: transient alteration of awareness Qualified Code(s): R40.4 - Transient alteration of awareness (4) Generalized weakness: Status: Acute (5) Diabetes mellitus, type II: Status: Chronic Qualifiers: Chronic kidney disease stage: stage 3 (moderate) Chronic kidney disease stage 3 subtype: stage 3b (GFR 30-44) Diabetes mellitus complication detail: with chronic kidney disease Diabetes mellitus complication status: with kidney complications Diabetes mellitus residential insulin use: without residential use Qualified Code(s): E11.22 - Type 2 diabetes mellitus with diabetic chronic kidney disease; N18.32 - Chronic kidney disease, stage 3b Plan: OTBS ACHS, HUMULIN R SLIDING SCALE, RESUME AMARYL (6) Parkinson disease: Status: Chronic Qualifiers: Dyskinesia presence: unspecified whether dyskinesia Fluctuating manifestations: unspecified whether manifestations fluctuate Qualified Code(s): G20.A1 - Parkinson's disease without dyskinesia, without mention of fluctuations Plan: RESUME SINEMET (7) GERD (gastroesophageal reflux disease): Status: Chronic Qualifiers: Esophagitis presence: esophagitis presence not specified Qualified Code(s): K21.9 - Gastro-esophageal reflux disease without esophagitis Plan: RESUME PRIOLOSEC (8) HTN (hypertension): Status: Chronic Qualifiers: Hypertension type: primary hypertension Qualified Code(s): I10 - Essential (primary) hypertension Plan: RESUME TOPROL XL
[2023-09-03] MEDS: SNACK - Diabetic Appropriate PO SCH (21:21)
[2023-09-04] MEDS: D5 1/2 NS 1,000 ML 1,000 ML IV SCH ×2 (01:50→06:10)
[2023-09-04] MEDS: SINEMET (PLAIN) 25/250 MG PO SCH ×3 (05:16→21:58)
[2023-09-04] MEDS: MIRAPEX TAB 1 MG PO SCH ×3 (05:16→21:58)
[2023-09-04 05:37] LABS: BASOPHILS % (AUTO) 0.2 % (0.2-1.0); EOSINOPHILS # (AUTO) 0.2 x10^3/uL (0.0-0.2); EOSINOPHILS % (AUTO) 2.3 % (0.9-2.9); HEMATOCRIT 38.2 % (36.0-47.0); HEMOGLOBIN 12.6 g/dL (12.0-16.0); LYMPHOCYTES # (AUTO) 1.7 X10^3/uL (1.3-2.9); LYMPHOCYTES % (AUTO) 22.3 % (21.0-51.0); MEAN CORPUSCULAR HEMOGLOBIN 29.7 pg (27.0-34.0); MEAN PLATELET VOLUME 8.1 fL (7.4-11.0); MONOCYTES # (AUTO) 0.8 x10^3/uL (0.3-0.8); MONOCYTES % (AUTO) 10.5 % (0.0-13.0); NEUTROPHILS # (AUTO) 5.1 x10^3/uL (2.2-4.8); NEUTROPHILS % (AUTO) 64.7 % (42.0-75.0); PLATELET COUNT 301 X10^3/uL (150.0-450.0); RED BLOOD COUNT 4.24 X10^6/uL (3.5-5.4); RED CELL DISTRIBUTION WIDTH 15.8 % (11.6-16.5); WHITE BLOOD COUNT 7.8 X10^3/uL (3.6-10.0)
[2023-09-04 05:51] LABS: ALBUMIN 2.4 g/dL (3.4-5.0); CALCIUM 8.1 mg/dL (8.5-10.1); CARBON DIOXIDE 23.2 mmol/L (21-32); COR CA(FOR HYPOALB) 9.4 mg/dL (8.5-10.1); CREATININE 1.14 mg/dL (0.55-1.02); POTASSIUM 3.4 mmol/L (3.5-5.1); TOTAL PROTEIN 5.9 g/dL (6.4-8.2)
[2023-09-04] MEDS ORDERED: CONSULT PHARMACY - POTASSIUM & MAGNESIUM XX SCH (06:00)
[2023-09-04] MEDS ORDERED: KLOR-CON PO SCH (09:00)
[2023-09-04] MEDS ORDERED: APRESOLINE INJ 20 MG VIAL IVP ONE (09:30)
[2023-09-04] MEDS ORDERED: NORMODYNE INJ 20 MG VIAL IV PRN (09:30)
[2023-09-04] MEDS: ROCEPHIN VIAL 1 GRAM 1 G in NS 100 ML IV 100 ML IV SCH (09:32)
[2023-09-04] MEDS: LOVENOX INJ 40 MG SYR SC SCH (09:32)
[2023-09-04] MEDS: PROTONIX INJ 40 MG VIAL IVP SCH (09:32)
[2023-09-04] MEDS: TobraDEX OPHTH OPHTH 1 DOSE LEFTEYE SCH ×2 (09:35→21:57)
[2023-09-04] MEDS: AMARYL TAB 4 MG PO SCH ×2 (10:55→21:57)
[2023-09-04] MEDS: COLACE SYRUP 100 MG UDC PO SCH (10:57)
[2023-09-04] MEDS: ROBITUSSIN DM PO SCH ×4 (10:57→21:57)
[2023-09-04] MEDS: CELEXA PO SCH (10:57)
[2023-09-04] MEDS: LOPRESSOR TAB 25 MG PO SCH ×2 (10:57→21:57)
[2023-09-04] MEDS: ASPIRIN 81 MG CHEWTAB PO SCH (10:58)
--- NOTE | 2023-09-04 12:03 | PCM.PROG ---
Progress Note Progress Note for Day of Date of Exam: 09/04/23 Subjective Subjective: Patient seen at bedside, no acute events overnight. Patient's at bedside. Patient appears to be more awake and alert this morning. She did say hi to her son earlier. She is still not talking much according to family. Her BP was elevated this morning, did get IV hydralazine. Nursing r eported patient was not swallowing her PO meds and was keeping it in her cheek. Family states patient has always had trouble with taking medications. Patient presented with weakness, dehydration and dysphagia. She had EGD on 08/30/23 which showed gastritis and esophageal dysmotility disorder. She is also being treated for UTI with Rocephin. She also has a hx of dementia and Parkinson's disease. Labs/imaging reviewed -Hgb 12.6 K 3.4 BUN/Cr 05/07.14 Plan: Will keep patient NPO for now, have speech re-assess tomorrow. Continue hydration, replace electrolytes prn. Continue IV hydralazine prn for HTN. Continue IV Rocephin. PT/OT as tolerated. Monitor AM labs. Past Medical Family Social History Past Med/Fam/Surg Hx: No changes since H&P Allergies: Allergies adhesive tape Allergy (Unknown, Verified 05/03/19 15:13) latex Allergy (Unknown, Verified 08/07/22 10:06) sulfamethoxazole [From Bactrim] Adverse Reaction (Unknown, Verified 08/07/22 10:06) trimethoprim [From Bactrim] Adverse Reaction (Unknown, Verified 08/07/22 10:06) Review of Systems ROS: No change since H&P Vital Signs and I&O's Vital Signs: Vital Signs Temperature 97.9 F Temperature 97.9 F Pulse Rate [Right] 81 Pulse Rate [Right] 80 Respiratory Rate 20 Respiratory Rate 20 Blood Pressure [Left Arm] 166/83 Blood Pressure [Left Arm] 170/88 Blood Pressure [Left Arm] 228/124 Blood Pressure [Left Arm] 231/109 Blood Pressure [Left Arm] 231/109 Blood Pressure [Left Arm] 179/72 O2 Sat by Pulse Oximetry 98 O2 Sat by Pulse Oximetry 94 Intake and Output: Intake & Output 09/01/23 09/02/23 09/03/23 09/04/23 23:59 23:59 23:59 23:59 Intake Total 968 / 968 2507 / 2507 2148 / 2148 632 / 632 Output Total 950 / 950 500 / 500 1300 / 1300 1100 / 1100 Balance 2006 848 / 848 -468 / -468 Physical Exam Oriented: Unable to test Eyes: Normal Ear: Normal Nose: Normal Throat: Normal Respiratory: Diminished Cardiovascular: Normal Auscultation: Bowel Sounds: Normal Tenderness: Normal Skin: Decreased Turgur Musculoskeletal: Normal Psychiatric: Normal Mood Description: Calm Affect: Normal Speech Pattern: Delayed Laboratory and Diagnostics 09/04/23 05:12 09/04/23 05:12 Labs: 08/28/23 14:49 Blood Blood Culture - Final 08/28/23 14:56 Blood Blood Culture - Final 08/28/23 15:57 Urine,Catheterized Urine Culture - Final Escherichia Coli Laboratory WBC 7.8 X10^3/uL (3.6-10.0) 09/04/23 05:12 RBC 4.24 X10^6/uL (3.5-5.4) 09/04/23 05:12 Hgb 12.6 g/dL (12.0-16.0) 09/04/23 05:12 Hct 38.2 % (36.0-47.0) 09/04/23 05:12 MCV 90.0 fL (80.0-100.0) 09/04/23 05:12 MCH 29.7 pg (27.0-34.0) 09/04/23 05:12 MCHC 33.0 g/dL (33.0-35.0) 09/04/23 05:12 RDW 15.8 % (11.6-16.5) 09/04/23 05:12 Plt Count 301 X10^3/uL (150.0-450.0) 09/04/23 05:12 MPV 8.1 fL (7.4-11.0) 09/04/23 05:12 Neut % (Auto) 64.7 % (42.0-75.0) 09/04/23 05:12 Lymph % (Auto) 22.3 % (21.0-51.0) 09/04/23 05:12 [place] % (Auto) 10.5 % (0.0-13.0) 09/04/23 05:12 Eos % (Auto) 2.3 % (0.9-2.9) 09/04/23 05:12 Baso % (Auto) 0.2 % (0.2-1.0) 09/04/23 05:12 Neut # (Auto) 5.1 x10^3/uL (2.2-4.8) H 09/04/23 05:12 Lymph # (Auto) 1.7 X10^3/uL (1.3-2.9) 09/04/23 05:12 [place] # (Auto) 0.8 x10^3/uL (0.3-0.8) 09/04/23 05:12 Eos # (Auto) 0.2 x10^3/uL (0.0-0.2) 09/04/23 05:12 Baso # (Auto) 0.0 X10^3/uL (0.0-0.1) 09/04/23 05:12 Absolute Nucleated RBC 0.1 /100WBC 09/04/23 05:12 Sodium 134 mmol/L (136-145) L 09/04/23 05:12 Corrected Sodium 135 mmol/L (136-145) L 09/04/23 05:12 Potassium 3.4 mmol/L (3.5-5.1) L 09/04/23 05:12 Chloride 103 mmol/L (98-107) 09/04/23 05:12 Carbon Dioxide 23.2 mmol/L (21-32) 09/04/23 05:12 BUN 7 mg/dL (7-18) 09/04/23 05:12 Creatinine 1.14 mg/dL (0.55-1.02) H 09/04/23 05:12 Est GFR (MDRD) Af Amer 58 (>60) L 09/04/23 05:12 Est GFR (MDRD) Non-Af 48 (>60) L 09/04/23 05:12 Glucose 124 mg/dL (65-99) H 09/04/23 05:12 POC Glucose (mg/dL) 146 mg/dL (65-99) H 09/04/23 11:25 Lactic Acid 1.6 mmol/L (0.4-2.0) 08/28/23 14:56 Calcium 8.1 mg/dL (8.5-10.1) L 09/04/23 05:12 Corrected Calcium 9.4 mg/dL (8.5-10.1) 09/04/23 05:12 Magnesium 2.0 mg/dL (2.0-2.9) 09/03/23 05:04 Total Bilirubin 0.40 mg/dL (0.2-1.0) 09/04/23 05:12 AST 16 Units/L (15-37) 09/04/23 05:12 ALT 7 Units/L (12-78) L 09/04/23 05:12 Alkaline Phosphatase 52 Units/L (46-116) 09/04/23 05:12 Total Protein 5.9 g/dL (6.4-8.2) L 09/04/23 05:12 Albumin 2.4 g/dL (3.4-5.0) L 09/04/23 05:12 Globulin 3.5 g/dL (2.5-4.5) 09/04/23 05:12 Albumin/Globulin Ratio 0.7 Ratio (1.1-2.1) L 09/04/23 05:12 Specimen Type Catherized urine 08/28/23 15:57 Urine Color Pale yellow (YELLOW) 08/28/23 15:57 Urine Appearance Slightly hazy (CLEAR) 08/28/23 15:57 Urine pH 5.0 (5.0 - 8.0) 08/28/23 15:57 Ur Specific [place] 1.020 (1.000-1.030) 08/28/23 15:57 Urine Protein 1+ (NEGATIVE) 08/28/23 15:57 Urine Glucose (UA) Negative (NEGATIVE) 08/28/23 15:57 Urine Ketones Negative (NEGATIVE) 08/28/23 15:57 Urine Blood 1+ (NEGATIVE) 08/28/23 15:57 Urine Nitrite Negative (NEGATIVE) 08/28/23 15:57 Urine Bilirubin Negative (NEGATIVE) 08/28/23 15:57 Urine Urobilinogen Normal (NORMAL) 08/28/23 15:57 Ur Leukocyte Esterase 1+ (NEGATIVE) 08/28/23 15:57 Urine RBC None seen /HPF (0-3) 08/28/23 15:57 Urine WBC 10-20 /HPF (0-5) A 08/28/23 15:57 Ur Squamous Epith Cells Rare /HPF (NEGATIVE) 08/28/23 15:57 Urine Bacteria 2+ /HPF (NEGATIVE) 08/28/23 15:57 Urine Mucus Rare /HPF (NEGATIVE) 08/28/23 15:57 Ur Culture Indicated? Yes/culture set up 08/28/23 15:57 Tissue Pathology See comment. 08/30/23 10:13 Plan (1) Dysphagia: Status: Chronic Qualifiers: Dysphagia type: unspecified Qualified Code(s): R13.10 - Dysphagia, unspecified (2) Acute UTI: Status: Acute (3) Acute on chronic renal failure: Status: Chronic Qualifiers: Acute renal failure type: unspecified Chronic kidney disease stage: unspecified stage Qualified Code(s): N17.9 - Acute kidney failure, unspecified; N18.9 - Chronic kidney disease, unspecified (4) AMS (altered mental status): Status: Acute Qualifiers: Altered mental status type: transient alteration of awareness Qualified Code(s): R40.4 - Transient alteration of awareness (5) Generalized weakness: Status: Acute (6) Diabetes mellitus, type II: Status: Chronic Qualifiers: Chronic kidney disease stage: stage 3 (moderate) Chronic kidney disease stage 3 subtype: stage 3b (GFR 30-44) Diabetes mellitus complication detail: with chronic kidney disease Diabetes mellitus complication status: with kidney complications Diabetes mellitus termite treater insulin use: without jail use Qualified Code(s): E11.22 - Type 2 diabetes mellitus with diabetic chronic kidney disease; N18.32 - Chronic kidney disease, stage 3b Plan: OTBS ACHS, HUMULIN R SLIDING SCALE, RESUME AMARYL (7) Parkinson disease: Status: Chronic Qualifiers: Dyskinesia presence: unspecified whether dyskinesia Fluctuating manifestations: unspecified whether manifestations fluctuate Qualified Code(s): G20.A1 - Parkinson's disease without dyskinesia, without mention of fluctuations Plan: RESUME SINEMET (8) GERD (gastroesophageal reflux disease): Status: Chronic Qualifiers: Esophagitis presence: esophagitis presence not specified Qualified Code(s): K21.9 - Gastro-esophageal reflux disease without esophagitis Plan: RESUME PRIOLOSEC (9) HTN (hypertension): Status: Chronic Qualifiers: Hypertension type: primary hypertension Qualified Code(s): I10 - Essential (primary) hypertension
[2023-09-04] MEDS: APRESOLINE INJ 20 MG VIAL IVP PRN (16:21)
[2023-09-04] MEDS: SNACK - Diabetic Appropriate PO SCH (21:57)
[2023-09-05] MEDS: MIRAPEX TAB 1 MG PO SCH (05:35)
[2023-09-05] MEDS: SINEMET (PLAIN) 25/250 MG PO SCH (05:36)
[2023-09-05] MEDS: D5 1/2 NS 1,000 ML 1,000 ML IV SCH (05:58)
[2023-09-05 06:52] LABS: BASOPHILS # (AUTO) 0.1 X10^3/uL (0.0-0.1); BASOPHILS % (AUTO) 0.7 % (0.2-1.0); EOSINOPHILS # (AUTO) 0.2 x10^3/uL (0.0-0.2); HEMATOCRIT 39.3 % (36.0-47.0); LYMPHOCYTES # (AUTO) 1.7 X10^3/uL (1.3-2.9); LYMPHOCYTES % (AUTO) 21.5 % (21.0-51.0); MEAN CORPUSCULAR HEMOGLOBIN 29.9 pg (27.0-34.0); MEAN CORPUSCULAR HGB CONC 33.1 g/dL (33.0-35.0); MEAN CORPUSCULAR VOLUME 90.3 fL (80.0-100.0); MEAN PLATELET VOLUME 7.9 fL (7.4-11.0); MONOCYTES # (AUTO) 0.8 x10^3/uL (0.3-0.8); MONOCYTES % (AUTO) 9.9 % (0.0-13.0); NEUTROPHILS # (AUTO) 5.2 x10^3/uL (2.2-4.8); NEUTROPHILS % (AUTO) 65.9 % (42.0-75.0); PLATELET COUNT 304 X10^3/uL (150.0-450.0); RED BLOOD COUNT 4.35 X10^6/uL (3.5-5.4); RED CELL DISTRIBUTION WIDTH 15.3 % (11.6-16.5); WHITE BLOOD COUNT 7.9 X10^3/uL (3.6-10.0)
[2023-09-05 07:03] LABS: ALBUMIN 2.5 g/dL (3.4-5.0); CARBON DIOXIDE 22.9 mmol/L (21-32); COR CA(FOR HYPOALB) 9.2 mg/dL (8.5-10.1); CREATININE 1.19 mg/dL (0.55-1.02); MAGNESIUM 1.8 mg/dL (2.0-2.9); POTASSIUM 3.2 mmol/L (3.5-5.1); TOTAL PROTEIN 5.9 g/dL (6.4-8.2)
[2023-09-05] MEDS ORDERED: D5 1/2 NS + KCL 20 MEQ/L 1,000 ML with MAGNESIUM SULFATE 50% INJ VIAL 1 G IV SCH ×2 (08:00)
[2023-09-05] MEDS ORDERED: CONSULT PHARMACY - POTASSIUM & MAGNESIUM XX SCH (08:00)
[2023-09-05] MEDS: PROTONIX INJ 40 MG VIAL IVP SCH (09:28)
[2023-09-05] MEDS: ROCEPHIN VIAL 1 GRAM 1 G in NS 100 ML IV 100 ML IV SCH (09:28)
[2023-09-05] MEDS: LOVENOX INJ 40 MG SYR SC SCH (09:28)
[2023-09-05] MEDS: TobraDEX OPHTH OPHTH 1 DOSE LEFTEYE SCH (09:38)
[2023-09-05 10:28] VITALS: BP 179/84; PULSE 104; RESP 18; TEMP 97; O2SAT 93
[2023-09-05] MEDS: AMARYL TAB 4 MG PO SCH (10:42)
[2023-09-05] MEDS: LOPRESSOR TAB 25 MG PO SCH (10:43)
[2023-09-05] MEDS: ASPIRIN 81 MG CHEWTAB PO SCH (10:44)
[2023-09-05] MEDS: ROBITUSSIN DM PO SCH (10:44)
[2023-09-05] MEDS: CELEXA PO SCH (10:44)
[2023-09-05] MEDS: COLACE SYRUP 100 MG UDC PO SCH (10:44)
[2023-10-30] MEDS ORDERED: XYLOCAINE 2 % (PLAIN) ONE (10:06)
== END 2023-09-05 11:50 | disposition hospice, home (50) | DRG 690 ==
LOC: ER 13:49 → MED/SURG 13:49
PROVIDERS: ADMIT Obstetrics & Gynecology Obstetrics; ATTEND Internal Medicine
DX: E78.2 Mixed hyperlipidemia; N39.0 Urinary tract infection, site not specified; N17.8 Other acute kidney failure; R40.4 Transient alteration of awareness; K22.89 Other specified disease of esophagus; R13.11 Dysphagia, oral phase; R53.1 Weakness; K29.00 Acute gastritis without bleeding; K21.9 Gastro-esophageal reflux disease without esophagitis; I12.9 Hypertensive chronic kidney disease with stage 1 through stage 4 chronic kidney disease, or unspecified chronic kidney disease; E03.8 Other specified hypothyroidism; E11.22 Type 2 diabetes mellitus with diabetic chronic kidney disease; N18.32 Chronic kidney disease, stage 3b; E86.0 Dehydration; E11.65 Type 2 diabetes mellitus with hyperglycemia; I25.10 Atherosclerotic heart disease of native coronary artery without angina pectoris; Z95.0 Presence of cardiac pacemaker; Z66 Do not resuscitate; B96.29 Other Escherichia coli [E. coli] as the cause of diseases classified elsewhere; G20.A1 Parkinson's disease without dyskinesia, without mention of fluctuations